=== PATIENT | male | born 1970 | race Caucasian/White ===

== ENCOUNTER 2017-06-22 09:58 | Inpatient (IN) | payer OTHER ==
[2017-06-22] MEDS ORDERED: VANCOMYCIN 1,000 MG in DEXTROSE 5%-WATER - 250 ML IVPB ONE (10:12)
[2017-06-22] MEDS ORDERED: AZITHROMYCIN IVPB 500 MG in DEXTROSE 5%-WATER - 250 ML IVPB ONE (10:13)
[2017-06-22 10:15] VITALS: BMI 30.2
--- NOTE | 2017-06-22 10:22 | PDOC ---
History of Present Illness <Jermain Smith - Last Filed: 06/22/17 12:46> - General History Source: Shelter Records - History of Present Illness Timing/Duration: reports: this morning Associated Symptoms: reports: cough <Tanika PringleLaurita - Last Filed: 06/22/17 14:38> - General Chief Complaint: Respiratory Stated Complaint: CONGESTION Time Seen by Provider: 06/22/17 10:04 Past History <Jermain Smith - Last Filed: 06/22/17 12:46> - Past Medical History Anemia: No Asthma: No Cancer: No Cardiac Disorders: Yes COPD: No CHF: No Dementia: Yes (severe MENTAL RETARDATION) Diabetes: Yes GI Disorders: Yes (GERD) Disorders: No HTN: No Hypercholesterolemia: No Liver Disease: No Suicide Attempt (Hx): No Seizures: Yes Thyroid Disease: No - Surgical History Abdominal Surgery: Yes Appendectomy: No Cardiac Surgery: No Cholecystectomy: No GI Surgery: Yes (PEG TUBE PLACEMENT) Lung Surgery: No Orthopedic Surgery: No - Immunization History Td Vaccination: Yes TDAP Vaccination: No Immunization Up to Date: Yes - Psycho/Social/Smoking Cessation Hx Anxiety: No Suicidal Ideation: No Smoking Status: No Smoking History: Never smoked Have you smoked in the past 12 months: No Number of Cigarettes Smoked Daily: 0 Hx Alcohol Use: No Drug/Substance Use Hx: No Substance Use Type: None Hx Substance Use Treatment: No <Tanika PringleLaurita - Last Filed: 06/22/17 14:38> - Past Medical History Allergies/Adverse Reactions: Allergies Allergy/AdvReac Type Severity Reaction Status Date / Time levofloxacin [From Levaquin] Allergy Intermediate Verified 06/22/17 10:06 Quinolones Allergy Unknown Verified 06/22/17 10:06 Cephalosporins Allergy Verified 06/22/17 10:06 Home Medications: Ambulatory Orders Calcium Carbonate/Vitamin D3 [Oyster Shell 500-Vit D3 200 Tb] 1 each GT BID Clonazepam 0.5 mg GT TID 06/22/17 Diazepam [Diastat Acudial] 1 each RC PRN PRN 06/22/17 Divalproex Sodium [Depakote] 375 mg GT BID 06/22/17 Ferrous Sulfate *Liquid* [Feosol [ALCOHOL FREE]] 44 mg GT BID 06/22/17 Gabapentin 200 mg PO TID 06/22/17 Glycopyrrolate 1 mg GT TID 06/22/17 Lamotrigine [Lamictal Xr] 200 mg GT BID 06/22/17 Levothyroxine [Synthroid -] 50 mcg GT DAILY 06/22/17 Loratadine 10 mg GT DAILY 06/22/17 Multivit-Min/FA/Lycopen/Lutein [Vitrum 50+ Senior Tablet] 1 each GT DAILY Polyethylene Glycol 3350 [Glycolax] 119 gm GT DAILY 06/22/17 Sennosides/Docusate Sodium [Senna Laxative Tablet] 2 each GT HS 06/22/17 Topiramate 25 gm GT BID 06/22/17 Respiratory Specific PMHX - Complaint Specific PMHX Pneumonia: Yes (history) <Giovanni Pringle - Last Filed: 06/22/17 14:38> Review of Systems - Review of Systems Able to Perform ROS?: No <Giovanni Pringle - Last Filed: 06/22/17 14:38> *Physical Exam - Vital Signs Last Vital Signs Temp Pulse Resp BP Pulse Ox 96.6 F L 87 24 121/69 97 06/22/17 10:00 06/22/17 10:00 06/22/17 10:00 06/22/17 10:00 06/22/17 10:00 <Jermain Smith - Last Filed: 06/22/17 12:46> - Physical Exam Comments: 06/22/17 10:23 appears lethargic General Appearance: Yes: Appropriately Dressed HEENT: positive: Other (mostly coagulated blood to tongue/teeth, possibly small tongue lac) Respiratory/Chest: positive: Rhonchi, Other (lous airway noises and rhonchorous lungs) Cardiovascular: positive: S1, S2 Gastrointestinal/Abdominal: positive: Soft. negative: Mass Integumentary: positive: Dry, Warm <Giovanni Pringle Last Filed: 06/22/17 14:38> Procedures - Intubation Time of Intubation: 12:35 Intubation Method: orotracheal Blade used: Glidescope Tube Size (Fr): 6.5 Medications: Rocuronium, Versed Tube position confirmed by: Direct visualization, CO2 detector, Chest x-ray, Breath sounds Breath Sounds after Intubation: equal Intubation Complications: no complications <Smith,Jermain - Last Filed: 06/22/17 12:46> ED Treatment Course - LABORATORY CBC & Chemistry Diagram: 06/22/17 11:23 06/22/17 10:55 - ADDITIONAL ORDERS Additional order review: Laboratory Results 06/22/17 06/22/17 06/22/17 11:20 11:20 10:55 Puncture Site Right radial ABG pH 7.24 L* ABG pCO2 at Pt Temp 81.2 H* D ABG pO2 at Pt Temp 101.0 H D ABG HCO3 33.3 H ABG O2 Sat (Measured) 97.7 ABG O2 Content 14.0 L ABG Base Excess 4.4 H Jovanni Test Positive Carboxyhemoglobin 2.1 H Methemoglobin 0.6 O2 Delivery Device Nonrebreather Oxygen Flow Rate 100% PEEP 0.0 Sodium Potassium Chloride Carbon Dioxide Anion Gap BUN Creatinine Creat Clearance w eGFR Random Glucose Lactic Acid 1.0 Calcium Total Bilirubin AST ALT Alkaline Phosphatase Creatine Kinase Cancelled Troponin I Cancelled Total Protein Albumin 06/22/17 10:55 Puncture Site ABG pH ABG pCO2 at Pt Temp ABG pO2 at Pt Temp ABG HCO3 ABG O2 Sat (Measured) ABG O2 Content ABG Base Excess Jovanni Test Carboxyhemoglobin Methemoglobin O2 Delivery Device Oxygen Flow Rate PEEP Sodium 141 Potassium 5.8 H D Chloride 102 Carbon Dioxide 32 Anion Gap 7 L BUN 28 H D Creatinine 0.5 L Creat Clearance w eGFR > 60 Random Glucose 110 H D Lactic Acid Calcium 10.3 H Total Bilirubin 0.5 D AST 61 H D ALT 41 Alkaline Phosphatase 319 H D Creatine Kinase 129 Troponin I < 0.02 Total Protein 7.6 Albumin 2.4 L 06/22/17 06/22/17 11:23 10:55 RBC 2.95 L Cancelled MCV 111.5 H Cancelled MCHC 31.7 L Cancelled RDW 17.2 H D Cancelled MPV 8.2 Cancelled Neutrophils % Y Cancelled Lymphocytes % Y Cancelled Monocytes % Cancelled Eosinophils % Cancelled Basophils % Cancelled - Medications Given in the ED: ED Medications Discontinued Medications Generic Name Dose Route Start Last Admin Trade Name Freq PRN Reason Stop Dose Admin Azithromycin 500 mg/ Dextrose 250 mls @ 250 mls/hr 06/22/17 10:13 06/22/17 12: 03 IVPB 06/22/17 11:12 250 mls/hr ONCE ONE Administration <Jermain Smith - Last Filed: 06/22/17 12:46> - LABORATORY CBC & Chemistry Diagram: 06/22/17 11:23 06/22/17 10:55 - RADIOLOGY Radiology Studies Ordered: Category Date Time Status CHEST X-RAY PORTABLE* [RAD] Stat Radiology 06/22/17 10:11 Ordered <Giovanni Pringle - Last Filed: 06/22/17 14:38> Medical Decision Making - Medical Decision Making 06/22/17 10:14 45-year-old male history of asthma, profound mental retardation, cerebral palsy , functional quadriplegia, recurrent epistaxis, seizure disorder, history of Katherine fundoplication (stomach wrapped to prevent reflux), s/p PEG, recurrent pneumonia, respiratory failure, oxygen dependent, sent from [facility] for upper respiratory congestion this a.m. No fevers noted at senior care See exam R/o recurrent PNA Sating high 80s on 2 L w/ lots of upper airway noise and rhonchorus lungs (O2 increased to 96% on 10-11L) -Abx (will discuss w/ ed attg given allergies) -CXR -labs including ABG (has h/o hypercapneic resp failure) -admit Oral bleeding 2/2 ?seizure Has h/o seizure though no seizure noted this am at [place] Has mostly dried blood to tongue/teeth, appears to be due to small tongue lac, no sutures required 06/22/17 10:25 06/22/17 10:25 06/22/17 10:30 CXR w/ progressive R infiltrate, effusion and congestion. Abx in progress. Will await labs and admit, possibly to unit. Low threshold for intubation as d/w ED attg 06/22/17 12:00 Patient significantly acidotic. Intubated at this time. Accepted by Dr. Rivas of ICU. Will contact hospitalist and admit at this time 06/22/17 13:09 Pt admitted to the ICU 06/22/17 14:27 After pt was intubated, patient's mother called to inform us that patient is DNR /DNI. We explained to mother that ER staff was not aware of patient's code as there was no documentation of DNR/DNI in patient's transfer notes from the senior care. Will inform admitting team at this time 06/22/17 14:36 As per admitting team, the state actually has guardianship of pt, not mother, and that pt is actually full code, not DNR/DNI, and that each time pt comes in, mother calls to tell staff that pt is DNR. ED attg aware <Giovanni Pringle - Last Filed: 06/22/17 14:38> *DC/Admit/Observation/Transfer <Jermain Smith - Last Filed: 06/22/17 12:46> - Discharge Dispostion Admit: Yes <Giovanni Pringle - Last Filed: 06/22/17 14:38> Diagnosis at time of Disposition: Hypercapnia Pneumonia Qualifiers: Pneumonia type: due to unspecified organism Laterality: right Lung location: unspecified part of lung Qualified Code(s): J18.9 - Pneumonia, unspecified organism - Discharge Dispostion Condition at time of disposition: Guarded - Referrals
[2017-06-22] MEDS ORDERED: methylPREDNISolone NA SUCC 125 MG/2 ML VIAL IVPB ONE (10:27)
[2017-06-22] MEDS ORDERED: AZTREONAM 2 GM in DEXTROSE 5%-WATER - 100 ML IV ONE (10:28)
--- NOTE | 2017-06-22 10:28 | PDOC ---
*Physical Exam - Vital Signs Last Vital Signs Temp Pulse Resp BP Pulse Ox 96.6 F L 87 24 121/69 97 06/22/17 10:00 06/22/17 10:00 06/22/17 10:00 06/22/17 10:00 06/22/17 10:00 ED Treatment Course - LABORATORY CBC & Chemistry Diagram: 06/22/17 11:23 06/22/17 10:55 Medical Decision Making - Critical Care Time Total Critical Care Time (minutes): 35 Critical Care Statement: The care of this patient involved high complexity decision making to prevent further life threatening deterioration of the patient 's condition and/or to evaluate & treat vital organ system(s) failure or risk of failure. - Medical Decision Making 06/22/17 10:28 Pt seen by the Advanced Practice Provider under my direct supervision Ancillary studies reviewed I agree with plan as outlined by the Advanced Practice Provider TIMMY Pringle Pt was noted to be quite ill and in respiratory distress. The patient was noted to be tachypneic, in respiratory failure. Noted to have a significant large R sided pneumonia. Give they hypoxia, ill-appearance, acidemia, and respiratory failure I had called and discussed with [facility] [place] nursing facilities maintenance supervisor Preema Stated that the patient was full code. Paper documentation with the patient indicated no code status or advanced directives The patient was intubated with video laryngoscopy with 1st pass through success Confirmed by breath sounds, condensation in ET tube, and CO2 colorimeter Portable subsequent chest xray shows: Placement of ET tube in trachea. I had discussed with Pt's mother Vianca Cummings [phone]. Mother upset. States that patient is DNR/DNI. We had then discussed the circumstances that had led to his intubation. We had updated the hospitalist team with the mother's phone number. Will ask [facility] to keep Ms. Cummings in frequent contact. *DC/Admit/Observation/Transfer Diagnosis at time of Disposition: Pneumonia, Hypercapnia - Discharge Dispostion Condition at time of disposition: Guarded
[2017-06-22] MEDS ORDERED: ALBUTEROL SO4 2.5/IPRATROPIUM 0.5 INH SOL 3 ML VIAL.NEB. NEB SCH (10:30)
[2017-06-22] MEDS ORDERED: VANCOMYCIN 1 GRAM (PRE-DOCKED) 250 ML IVPB ONE (11:02)
[2017-06-22] MEDS ORDERED: AZITHROMYCIN IVPB 250 ML IVPB ONE (11:02)
[2017-06-22 11:20] LABS: ARTERIAL BLD GAS O2 SATURATION 97.7 % (90-98.9); ARTERIAL BLOOD GAS BASE EXCESS 4.4 meq/l (-2-2); ARTERIAL BLOOD GAS HCO3 33.3 meq/L (22-26)
[2017-06-22 11:21] LABS: ALBUMIN 2.4 g/dl (3.4-5.0); ANION GAP 7 (8-16); BILIRUBIN,TOTAL 0.5 mg/dL (0.2-1.0); CALCIUM 10.3 mg/dL (8.5-10.1); CO2 32 mmol/L (21-32); CREATININE 0.5 mg/dL (0.7-1.3); GLUCOSE,RANDOM 110 mg/dL (74-106); SGPT/ALT 41 U/L (12-78); TOT PROT 7.6 g/dl (6.4-8.2)
[2017-06-22 11:22] LABS: ALK PHOS 319 U/L (45-117)
[2017-06-22 11:24] LABS: ARTERIAL BLOOD GAS pH 7.24 (7.35-7.45)
[2017-06-22 11:25] LABS: ALLENS TEST POSITIVE; ART PUNCT SITE RIGHT RADIAL; LPM/O2% 100%; METHEMOGLOBIN 0.6 % (0.4-1.5); PT. ON O2? YES
[2017-06-22 11:26] LABS: TYPE OF O2 NONREBREATHER
[2017-06-22 11:28] LABS: SGOT/AST 61 U/L (15-37)
[2017-06-22 11:44] LABS: MCH 35.4 pg (25.7-33.7); MCHC 31.7 g/dl (32.0-35.9); MEAN CELL VOLUME 111.5 fl (80-96); MEAN PLT VOLUME 8.2 fl (7.5-11.1); PLATELET COUNT 93 K/MM3 (134-434); RDW 17.2 % (11.9-15.9); WHITE BLOOD COUNT 9.4 K/mm3 (4.0-10.0)
[2017-06-22 12:11] LABS: CPK 129 IU/L (39-308); TROPONIN I < 0.02 ng/ml (0.00-0.05)
[2017-06-22] MEDS ORDERED: ALBUTEROL SO4 2.5/IPRATROPIUM 0.5 INH SOL 3 ML VIAL.NEB. NEB ONE (12:11)
[2017-06-22] MEDS ORDERED: RAPID SEQUENCE INTUBATION KIT NR ONE ×2 (12:16→12:26)
[2017-06-22] MEDS ORDERED: ROCURONIUM BROMIDE 50 MG/5 ML VIAL IV ONE (12:42)
[2017-06-22] MEDS ORDERED: ETOMIDATE 20 MG/10 ML AMPUL IVPUSH ONE (12:42)
[2017-06-22] MEDS ORDERED: MIDAZOLAM 100 MG in SODIUM CHLORIDE 100 ML IVPB SCH (12:45)
--- NOTE | 2017-06-22 13:17 | EKG ---
Test Reason : Blood Pressure : / mmHG Vent. Rate : 085 BPM Atrial Rate : 085 BPM P-R Int : 216 ms QRS Dur : 130 ms QT Int : 324 ms P-R-T Axes : 056 -14 249 degrees QTc Int : 385 ms SINUS RHYTHM WITH 1ST DEGREE A-V BLOCK NON-SPECIFIC INTRA-VENTRICULAR CONDUCTION BLOCK T WAVE ABNORMALITY, CONSIDER INFEROLATERAL ISCHEMIA ABNORMAL ECG WHEN COMPARED WITH ECG OF 22-OCT-2016 15:26, NO SIGNIFICANT CHANGE WAS FOUND CLINICAL CORRELATION IS RECOMMENDED Confirmed by ISABEL MORTENSEN MD ([id number]) on 06/22/2017 1:17:03 PM Referred By: Confirmed By:ISABEL MORTENSEN MD
--- NOTE | 2017-06-22 13:34 | HP ---
CHIEF COMPLAINT: Respiratory distress, from [facility] Dr[facility] Lunsford (the ship construction teacher physician at [place]) [phone] as there was a question as to whether patient was a full code or a DNR/DNI from ER staff after patient's mother called ER saying that patient was a DNR/DNI. asked that I clarify with the nursing wireworker supervisor ship construction teacher at [place]. I reached out to the nursing wireworker supervisor Mrs. Franco and she confirmed that patient is a FULL CODE. I will contact Palliative care so that they can follow patient as they were involved in his care on prior admission. HISTORY OF PRESENT ILLNESS: Patient is a 46 year old male with a significant past medical history of asthma , profound mental retardation, cerebral palsy, functional quadriplegia, recurrent epistaxis, seizure disorder, history of Katherine fundoplication ( stomach wrapped to prevent reflux), s/p PEG, recurrent pneumonia, respiratory failure, oxygen dependent, sent from [facility] for upper respiratory congestion. ER course was notable for: (1) ABG 7.24, PCO2 81.2, HCO3 33.3, P02 101 (2) K. 5.8 (3) oral bleeding, unable to inspect tongue (4) platelets 93 (5) BP 93/77, WBC 9.4 (6) +rhoncohorus lungs (7) Chest Xray 06/22/2017: ET tube tip above ovidio - progressive right effusion , anabelle. infiltrates Recent Travel: none PAST MEDICAL HISTORY: asthma, profound mental retardation, cerebral palsy, functional quadriplegia, recurrent epistaxis, seizure disorder, history of Katherine fundoplication (stomach wrapped to prevent reflux), s/p PEG, recurrent pneumonia, respiratory failure PAST SURGICAL HISTORY: Social History: Smoking: n/a Alcohol: n/a Drugs: n/a Family History: Allergies levofloxacin [From Levaquin] Allergy (Intermediate, Verified 06/22/17 10:06) rash Quinolones Allergy (Unknown, Verified 06/22/17 10:06) Cephalosporins Allergy (Verified 06/22/17 10:06) HOME MEDICATIONS: Home Medications Medication Instructions Recorded Calcium Carbonate/Vitamin D3 1 each GT BID 06/22/17 [Oyster Shell 500-Vit D3 200 Tb] Clonazepam 0.5 mg GT TID 06/22/17 Diazepam [Diastat Acudial] 1 each RC PRN PRN 06/22/17 Divalproex Sodium [Depakote] 375 mg GT BID 06/22/17 Ferrous Sulfate *Liquid* [Feosol 44 mg GT BID 06/22/17 [ALCOHOL FREE]] Gabapentin 200 mg PO TID 06/22/17 Glycopyrrolate 1 mg GT TID 06/22/17 Lamotrigine [Lamictal Xr] 200 mg GT BID 06/22/17 Levothyroxine [Synthroid -] 50 mcg GT DAILY 06/22/17 Loratadine 10 mg GT DAILY 06/22/17 Multivit-Min/FA/Lycopen/Lutein 1 each GT DAILY 06/22/17 [Vitrum 50+ Senior Tablet] Polyethylene Glycol 3350 [Glycolax] 119 gm GT DAILY 06/22/17 Sennosides/Docusate Sodium [Senna 2 each GT HS 06/22/17 Laxative Tablet] Topiramate 25 gm GT BID 06/22/17 REVIEW OF SYSTEMS CONSTITUTIONAL: Absent: fever, chills, diaphoresis, generalized weakness, malaise, loss of appetite, weight change HEENT: GASTROINTESTINAL: Absent: abdominal pain, abdominal distension, nausea, vomiting, diarrhea, constipation, melena, hematochezia GENITOURINARY: Absent: dysuria, frequency, urgency, hesitancy, hematuria, flank pain, genital pain MUSCULOSKELETAL: Absent: myalgia, arthralgia, joint swelling, back pain, neck pain SKIN: Absent: rash, itching, pallor HEMATOLOGIC/IMMUNOLOGIC: Absent: easy bleeding, easy bruising, lymphadenopathy, frequent infections ENDOCRINE: Absent: unexplained weight gain, unexplained weight loss, heat intolerance, cold intolerance PHYSICAL EXAMINATION Vital Signs - 24 hr 06/22/17 06/22/17 10:00 12:48 Temperature 96.6 F L Pulse Rate 87 73 Respiratory 24 15 Rate Blood Pressure 121/69 O2 Sat by Pulse 98 100 Oximetry (%) GENERAL: sedated, intubated HEAD: oral bleeding, dry blood in mouth EARS, NOSE, THROAT: oral bleeding, dry blood in mouth, unable to view bishop LUNGS: rhonchorus lungs ABDOMEN: +peg tube UPPER EXTREMITIES: No peripheral edema. LOWER EXTREMITIES: non pitting edema NEUROLOGICAL: intubated, sedated Laboratory Results - last 24 hr 06/22/17 06/22/17 06/22/17 10:55 10:55 10:55 WBC Cancelled Corrected WBC (auto) Cancelled RBC Cancelled Hgb Cancelled Hct Cancelled MCV Cancelled MCH Cancelled MCHC Cancelled RDW Cancelled Plt Count Cancelled MPV Cancelled Neutrophils % Cancelled Lymphocytes % Cancelled Monocytes % Cancelled Eosinophils % Cancelled Basophils % Cancelled Platelet Comment Cancelled RBC Morphology Cancelled Puncture Site ABG pH ABG pCO2 at Pt Temp ABG pO2 at Pt Temp ABG HCO3 ABG O2 Sat (Measured) ABG O2 Content ABG Base Excess Jovanni Test Carboxyhemoglobin Methemoglobin O2 Delivery Device Oxygen Flow Rate PEEP Sodium 141 Potassium 5.8 H D Chloride 102 Carbon Dioxide 32 Anion Gap 7 L BUN 28 H D Creatinine 0.5 L Creat Clearance w eGFR > 60 Random Glucose 110 H D Lactic Acid 1.0 Calcium 10.3 H Total Bilirubin 0.5 D AST 61 H D ALT 41 Alkaline Phosphatase 319 H D Creatine Kinase 129 Troponin I < 0.02 Total Protein 7.6 Albumin 2.4 L 06/22/17 06/22/17 06/22/17 11:20 11:20 11:23 WBC 9.4 Corrected WBC (auto) RBC 2.95 L Hgb 10.4 L Hct 32.9 L MCV 111.5 H MCH 35.4 H MCHC 31.7 L RDW 17.2 H D Plt Count 93 L D MPV 8.2 Neutrophils % Y Lymphocytes % Y Monocytes % Eosinophils % Basophils % Platelet Comment RBC Morphology Puncture Site Right radial ABG pH 7.24 L* ABG pCO2 at Pt Temp 81.2 H* D ABG pO2 at Pt Temp 101.0 H D ABG HCO3 33.3 H ABG O2 Sat (Measured) 97.7 ABG O2 Content 14.0 L ABG Base Excess 4.4 H Jovanni Test Positive Carboxyhemoglobin 2.1 H Methemoglobin 0.6 O2 Delivery Device Nonrebreather Oxygen Flow Rate 100% PEEP 0.0 Sodium Potassium Chloride Carbon Dioxide Anion Gap BUN Creatinine Creat Clearance w eGFR Random Glucose Lactic Acid Calcium Total Bilirubin AST ALT Alkaline Phosphatase Creatine Kinase Cancelled Troponin I Cancelled Total Protein Albumin ASSESSMENT/PLAN: Patient is a 46 year old male with a significant past medical history of asthma , profound mental retardation, cerebral palsy, functional quadriplegia, recurrent epistaxis, seizure disorder, history of Katherine fundoplication ( stomach wrapped to prevent reflux), s/p PEG, recurrent pneumonia, respiratory failure, oxygen dependent, sent from [facility] for upper respiratory congestion. Pulmonary: Severe Sepsis 2/2 to Aspiration pnemonia, vs HCAP/upper respiratory infection with respiratory Failure - acute on chronic A/P: Intubated and sedated and transferred to the ICU Blood and urine cultures sent He is oxygen dependent at baseline Given Vanco and Azithromycin in the ED, Will Start on Zosyn ivpb q8 Clindamycin added on 06/23/2017 Sputum culture ordered ID following Neurology: Seizure disorder A/P: Continue home anti-seizure medications Ativan added for any seizure episodes Tongue laceration with dry blood in oral cavity Aspiration pna after seizure episode likely Neuro consulted Endocrine: A/P: On Synthroid TSH in a.m. Cerebral Palsy/Qudriplegic A/P: Turn and position, tube feeds on hold, NPO Hematology: A/P: Thrombocytopenia Monitor platelet counts Hold anticoags F.E.N. Fluids: NS @ 100cc/hr Electrolytes: Hyperkalemia, repeat labs, if continues to be elevated will give Kayexalate DVT Proph: DVT: SCDs, no AC secondary to thrombocytopenia GI: Protonix through GT Disposition: Full Code. See above note, patient is not a DNR/DNI. Visit type - Emergency Visit Emergency Visit: Yes ED Registration Date: 06/22/17 Care time: The patient presented to the Emergency Department on the above date and was hospitalized for further evaluation of their emergent condition. - New Patient This patient is new to me today: Yes Date on this admission: 06/23/17 - Critical Care Critical Care patient: Yes Total Critical Care Time (in minutes): 60 Critical Care Statement: The care of this patient involved high complexity decision making to prevent further life threatening deterioration of the patient 's condition and/or to evaluate & treat vital organ system(s) failure or risk of failure.
[2017-06-22 13:56] LABS: METAMYELOCYTE 38 % (0-2)
[2017-06-22 13:58] LABS: ANISOCYTOSIS 2+; HYPOCHROMIA 2+; STOMATOCYTE 3+
[2017-06-22 13:59] LABS: PLATELET ESTIMATE DECREASED (NORMAL)
[2017-06-22 18:42] LABS: ARTERIAL BLD GAS O2 SATURATION 93.2 % (90-98.9); ARTERIAL BLOOD GAS BASE EXCESS 4.4 meq/l (-2-2); ARTERIAL BLOOD GAS pH 7.41 (7.35-7.45)
[2017-06-22 18:47] LABS: ALLENS TEST POSITIVE; ART PUNCT SITE LEFT RADIAL; ARTERIAL BLOOD GAS PO2 61.6 mmHg (80-100); LPM/O2% 50%; MECH. VENT. ESPRIT; PT. ON O2? YES; TYPE OF O2 OT; VENT RATE 15; VT/PRESS 400
--- NOTE | 2017-06-22 18:58 | HOSP ---
Physical Examination Vital Signs: Vital Signs Temperature 96.6 F L 06/22/17 10:00 Pulse Rate 64 06/22/17 17:10 Respiratory Rate 18 06/22/17 17:10 Blood Pressure 92/48 06/22/17 17:10 O2 Sat by Pulse Oximetry (%) 100 06/22/17 17:10 Hospitalist Encounter Assessment: Patient has poor IV access, 22g on right wrist not working well ER physician Dr. Colmenares, TIMMY Larios asked to assist in placing EJ Left EJ placed by TIMMY Larios
[2017-06-22] MEDS ORDERED: SODIUM POLYSTYRENE SULFONATE 15 GM/60 ML BOTTLE PEG ONE (19:10)
[2017-06-22] MEDS: PIPERACILLIN/TAZOB 3.375 GM/50 ML PRE-DOCKED IVPB SCH (19:33)
[2017-06-22 19:56] LABS: CPK 85 IU/L (39-308)
[2017-06-22 19:57] LABS: TROPONIN I < 0.02 ng/ml (0.00-0.05)
--- NOTE | 2017-06-22 20:19 | CONSULT ---
Consult Consult Specialty:: PULM / CCM Referred by:: Dr. Cici Lewis Reason for Consultation:: PNA - History of Present Illness Chief Complaint: SOB History of Present Illness: Mr. Jama is a 45 y/o man w/ CP, profound MR, Szs, functional quadriplegia, PEG , asthma, recurrent pna, & O2 Dependant respiratory failure, [facility] Resident, JOHNNIE today for upper respiratory congestion. Pt intubated in the ED. CXR shows R Lung plugging. Admit to ICU for Resp Fail. - History Source History Provided By: Medical Record Limitations to Obtaining History: Clinical Condition (Pt is Uncon/unresp sedated on the Vent.) - Past Medical History BIO MEDICAL TECHNICIAN: Yes: Dementia, Seizure, Other (Cerebral Palsy w quadriplegia, severe mental retardation) Pulmonary: Yes: Pneumonia Gastrointestinal: Yes: GERD, Other (peg tube) Musculoskeletal: Yes: Other (scoliosis) ENT: Yes: Allergic Rhinitis Endocrine: Yes: Other (h/o hyponatremia) Additional Medical History: optic atrophy. h/o hypothermia - Past Surgical History Past Surgical History: Yes: Orchiectomy, Upper Endoscopy - Alcohol/Substance Use Hx Alcohol Use: No History of Substance Use: reports: None - Smoking History Smoking history: Never smoked Have you smoked in the past 12 months: No Aproximately how many cigarettes per day: 0 - Social History Usual Living Arrangement: Long-Term ADL: Support Services History of Recent Travel: No Home Medications - Allergies Allergies/Adverse Reactions: Allergies Allergy/AdvReac Type Severity Reaction Status Date / Time levofloxacin [From Levaquin] Allergy Intermediate Verified 06/22/17 10:06 Quinolones Allergy Unknown Verified 06/22/17 10:06 Cephalosporins Allergy Verified 06/22/17 10:06 - Home Medications Home Medications: Ambulatory Orders Albuterol 0.083% Nebulizer Yolanda [Ventolin 0.083% Nebulizer Soln -] 1 amp NEB Q8H PRN 06/22/17 Calcium Carbonate/Vitamin D3 [Oyster Shell 500-Vit D3 200 Tb] 1 each GT BID Clonazepam 0.5 mg GT TID 06/22/17 Diazepam [Diastat Acudial] 1 each RC PRN PRN 06/22/17 Divalproex Sodium [Depakote] 375 mg GT BID 06/22/17 Ferrous Sulfate *Liquid* [Feosol [ALCOHOL FREE]] 5 ml GT BID 06/22/17 Gabapentin 200 mg PO TID 06/22/17 Glycopyrrolate 1 mg GT TID 06/22/17 Lamotrigine [Lamictal Xr] 200 mg GT BID 06/22/17 Levothyroxine [Synthroid -] 50 mcg GT DAILY 06/22/17 Loratadine 10 mg GT DAILY 06/22/17 Multivit-Min/FA/Lycopen/Lutein [Vitrum 50+ Senior Tablet] 1 each GT DAILY Nutritional Supplement/Fiber [Promote with Fiber Liquid] 830 ml GT DAILY Polyethylene Glycol 3350 [Glycolax] 17 gm GT DAILY 06/22/17 Protein Supplement [Promod] 30 ml GT DAILY 06/22/17 Sennosides [Senna] 2 tab GT HS 06/22/17 Sodium Chloride Nasal Gel [Plains Saline Nasal Gel -] 1 applic TP DAILY 06/22/17 Sodium Chloride Tablet - 2.5 tab PO HS 06/22/17 Sodium Chloride Tablet - 3.5 tab GT AM 06/22/17 Topiramate 25 gm GT BID 06/22/17 Family Disease History - Family Disease History Family History: Unable to Obtain (Unconscious/Unresp (Sedated & Intubated)) Family Disease History: Other: Father, Mother Review of Systems Unable to obtain ROS, reason: Sedated & Intubated Physical Exam Vital Signs: Vital Signs Temperature 98.0 F 06/22/17 18:47 Pulse Rate 58 L 06/22/17 18:47 Respiratory Rate 15 06/22/17 19:27 Blood Pressure 81/59 06/22/17 18:47 O2 Sat by Pulse Oximetry (%) 100 06/22/17 17:10 Gastrointestinal: Yes: WNL, Normal Bowel Sounds, Soft, Distention, Other (PEG) ...Rectal Exam: Yes: Deferred Renal/: Yes: WNL Breast(s): Yes: WNL Musculoskeletal: Yes: WNL Extremities: Yes: WNL Edema: Yes Edema: LUE: Trace, RUE: Trace, LLE: Trace, RLE: Trace Peripheral Pulses WNL: Yes Neurological: Yes: Unresponsive ...Motor Strength: WNL Psychiatric: Yes: WNL Labs: CBC, BMP 06/22/17 11:23 06/22/17 18:35 Troponin, BNP 06/22/17 06/22/17 06/22/17 10:55 11:20 18:35 Troponin I < 0.02 Cancelled < 0.02 Imaging - Results Chest X-ray: Image Reviewed (ETT in good position & massive R side PNA w/ extensive lumg collapse.) Problem List - Problems (1) Aspiration pneumonia Code(s): J69.0 - PNEUMONITIS DUE TO INHALATION OF FOOD AND VOMIT (2) Hypercapnia Code(s): R06.89 - OTHER ABNORMALITIES OF BREATHING (3) Seizure Code(s): R56.9 - UNSPECIFIED CONVULSIONS (4) Asthma Code(s): J45.909 - UNSPECIFIED ASTHMA, UNCOMPLICATED Qualifiers: Asthma severity: mild intermittent Asthma complication type: uncomplicated Qualified Code(s): J45.20 - Mild intermittent asthma, uncomplicated (5) GERD (gastroesophageal reflux disease) Code(s): K21.9 - GASTRO-ESOPHAGEAL REFLUX DISEASE WITHOUT ESOPHAGITIS (6) Cerebral palsy, quadriplegic Code(s): G80.8 - OTHER CEREBRAL PALSY (7) Hypothyroidism Code(s): E03.9 - HYPOTHYROIDISM, UNSPECIFIED (8) Mental retardation Code(s): F79 - UNSPECIFIED INTELLECTUAL DISABILITIES Assessment/Plan ASSESS: This is a 45 y/o man w/ CP, profound MR, Szs, functional quadriplegia, PEG, asthma, recurrent pna, & O2 Dependant respiratory failure, [facility] Resident, admitted now w/ hypercapnic resp fail m/l 2/2 pna. PLAN: -Vent Support -Nebs -Sedation for comfort on the Vent -Early AM eye rehab tech Bronch down the R main?? -Zo & Aztih -CPT -F/u Clxrs -IVFs -Cont Home AEDs -NEURO -Cont Synthroid -TFs -Pall Care Consult (Pt's mother requesting DNR/DNI) -Turn Pt q2Hrs (functional quadriplegia) -BR -Protonix through GT -SCDs, (no AC secondary to thrombocytopenia) IMPORTANT CONTACTS TO NOTE: Vianca Cummings ([facility] [place]) [phone]. call center coordinator physician at [facility] [phone] [facility] nursing tool crib supervisor [id number] [facility] ICU PULM / CCM
[2017-06-22] MEDS ORDERED: ALBUTEROL SO4 0.083% IH SOL 2.5 MG/3 ML VIAL.NEB. NEB PRN (20:41)
[2017-06-22] MEDS ORDERED: LACTATED RINGERS SOLUTION 1,000 ML IV STA (20:41)
[2017-06-22] MEDS ORDERED: PT OWN MED DRAWER 7, Y5N ONE (21:18)
[2017-06-22] MEDS ORDERED: TOPIRAMATE GT SCH (22:00)
[2017-06-22] MEDS: SODIUM CHLORIDE 1,000 ML IV SCH (22:11)
[2017-06-22] MEDS: MUPIROCIN 2% TOPICAL OINTMENT FOR DECOLONIZATION NS SCH (22:12)
[2017-06-22] MEDS: VALPROATE SODIUM 500 MG/5 ML VIAL IVPB SCH (22:13)
[2017-06-22] MEDS: CHLORHEXIDINE GLUCONATE 4% CLEANSER FOR DECOLONIZATION TP SCH (22:13)
[2017-06-22] MEDS: clonazePAM 0.5 MG TABLET GT SCH (22:13)
[2017-06-22] MEDS: GABAPENTIN 100 MG CAPSULE (FP) GT SCH (22:13)
[2017-06-22] MEDS: lamoTRIgine 100 MG TABLET (FP) GT SCH (22:14)
[2017-06-22] MEDS: TOPIRAMATE 25 MG TABLET (FP) NR SCH (22:14)
[2017-06-23] MEDS: PIPERACILLIN/TAZOB 3.375 GM/50 ML PRE-DOCKED IVPB SCH ×3 (02:00→18:26)
[2017-06-23] MEDS: GABAPENTIN 100 MG CAPSULE (FP) GT SCH ×3 (06:06→21:44)
[2017-06-23] MEDS: clonazePAM 0.5 MG TABLET GT SCH ×3 (06:06→21:44)
[2017-06-23] MEDS: LEVOTHYROXINE NA 50 MCG TABLET (FP) GT SCH (06:13)
[2017-06-23 06:49] LABS: MCH 35.4 pg (25.7-33.7); MCHC 32.4 g/dl (32.0-35.9); MEAN PLT VOLUME 8.8 fl (7.5-11.1); PLATELET COUNT 85 K/MM3 (134-434); RDW 16.8 % (11.9-15.9); WHITE BLOOD COUNT 7.3 K/mm3 (4.0-10.0)
[2017-06-23 07:24] LABS: ANION GAP 7 (8-16); CALCIUM 9.2 mg/dL (8.5-10.1); CO2 29 mmol/L (21-32); CREATININE 0.5 mg/dL (0.7-1.3); GLUCOSE,RANDOM 76 mg/dL (74-106); MAGNESIUM 2.1 mg/dL (1.8-2.4)
[2017-06-23 07:32] LABS: ARTERIAL BLD GAS O2 SATURATION 98.9 % (90-98.9); ARTERIAL BLOOD GAS BASE EXCESS 3.3 meq/l (-2-2); ARTERIAL BLOOD GAS HCO3 27.2 meq/L (22-26); ARTERIAL BLOOD GAS pH 7.45 (7.35-7.45)
[2017-06-23 07:43] LABS: ALLENS TEST POSITIVE; ART PUNCT SITE RIGHT RADIAL; LPM/O2% 50%; MECH. VENT. Y; PT. ON O2? YES; TYPE OF O2 VENT
[2017-06-23 07:44] LABS: VENT RATE 15; VT/PRESS 400
[2017-06-23 07:46] LABS: THYROID STIMULATING HORMONE 0.75 uIU/ml (0.358-3.74)
[2017-06-23] MEDS ORDERED: CLINDAMYCIN 600MG PREMIX IVPB 50 ML IVPB SCH (09:00)
[2017-06-23 09:20] LABS: METAMYELOCYTE 7 % (0-2)
[2017-06-23 09:21] LABS: PLATELET ESTIMATE DECREASED (NORMAL)
--- NOTE | 2017-06-23 09:31 | PN ---
Physical Exam: SUBJECTIVE: Patient seen and examined in the ICU. Less congested lung sounds. Remains intubated, sedated. Systolic in the 80s, not on pressors OBJECTIVE: Potassium 4.1 I consulted neuro, as am concerned that patient may have had a seizure and may have caused him to aspirate. He has dry blood in his oral cavity. Will check valporic levels. Ativan 0.5mg prn added for any seizure episodes Clindmycin added for presumed aspiration pneumonia Palliative care consulted to discuss goals of care and advance directives Less congested today Vital Signs Period Temp Pulse Resp BP Sys/Celestin Pulse Ox Last 24 Hr 95.6 F-99.2 F 58-72 15-20 80-112/38-77 97-100 GENERAL: sedated, intubated HEAD: oral bleeding, dry blood in mouth EARS, NOSE, THROAT: oral bleeding, dry blood in mouth, unable to view bishop LUNGS: less congestion, rhonchorus lungs ABDOMEN: +peg tube UPPER EXTREMITIES: No peripheral edema. LOWER EXTREMITIES: non pitting edema NEUROLOGICAL: intubated, sedated Laboratory Results - last 24 hr 06/22/17 06/22/17 06/22/17 18:35 18:35 18:35 WBC RBC Hgb Hct MCV MCH MCHC RDW Plt Count MPV Neutrophils % Lymphocytes % Monocytes % Eosinophils % Band Neutrophils Metamyelocytes Myelocytes Differential Comment Platelet Estimate Puncture Site ABG pH ABG pCO2 at Pt Temp ABG pO2 at Pt Temp ABG HCO3 ABG O2 Sat (Measured) ABG O2 Content ABG Base Excess Jovanni Test O2 Delivery Device Oxygen Flow Rate Vent Mode Vent Rate Mechanical Rate PEEP Pressure Support Vent Sodium Potassium 4.2 D Chloride Carbon Dioxide Anion Gap BUN Creatinine Random Glucose Lactic Acid 2.0 Calcium Phosphorus Magnesium Creatine Kinase 85 Troponin I < 0.02 TSH 06/22/17 06/23/17 06/23/17 18:40 05:35 05:35 WBC 7.3 RBC 2.32 L D Hgb 8.2 L D Hct 25.3 L D MCV 109.0 H MCH 35.4 H MCHC 32.4 RDW 16.8 H Plt Count 85 L MPV 8.8 Neutrophils % 58.0 D Lymphocytes % 18.0 D Monocytes % 6.0 Eosinophils % 2.0 D Band Neutrophils 6.0 Metamyelocytes 7 H D Myelocytes 3 H D Differential Comment Manual diff done Platelet Estimate Decreased Puncture Site Left radial ABG pH 7.41 D ABG pCO2 at Pt Temp 46.2 H D ABG pO2 at Pt Temp 61.6 L D ABG HCO3 29.0 H ABG O2 Sat (Measured) 93.2 ABG O2 Content 11.4 L ABG Base Excess 4.4 H Jovanni Test Positive O2 Delivery Device Ot Oxygen Flow Rate 50% Vent Mode Ac Vent Rate 15 Mechanical Rate Esprit PEEP 5.0 Pressure Support Vent 400 Sodium 142 Potassium 4.1 Chloride 106 Carbon Dioxide 29 Anion Gap 7 L BUN 31 H Creatinine 0.5 L Random Glucose 76 D Lactic Acid Calcium 9.2 Phosphorus 2.0 L D Magnesium 2.1 Creatine Kinase Troponin I TSH 0.75 D 06/23/17 07:35 WBC RBC Hgb Hct MCV MCH MCHC RDW Plt Count MPV Neutrophils % Lymphocytes % Monocytes % Eosinophils % Band Neutrophils Metamyelocytes Myelocytes Differential Comment Platelet Estimate Puncture Site Right radial ABG pH 7.45 ABG pCO2 at Pt Temp 40.1 ABG pO2 at Pt Temp 101.0 H D ABG HCO3 27.2 H ABG O2 Sat (Measured) 98.9 ABG O2 Content 11.4 L ABG Base Excess 3.3 H Jovanni Test Positive O2 Delivery Device Vent Oxygen Flow Rate 50% Vent Mode A/c Vent Rate 15 Mechanical Rate Y PEEP 5.0 Pressure Support Vent 400 Sodium Potassium Chloride Carbon Dioxide Anion Gap BUN Creatinine Random Glucose Lactic Acid Calcium Phosphorus Magnesium Creatine Kinase Troponin I TSH Active Medications Generic Name Dose Route Start Last Admin Trade Name Freq PRN Reason Stop Dose Admin Albuterol Sulfate 1 amp 06/22/17 20:41 Ventolin 0.083% Nebulizer Soln - NEB Q4H PRN SHORT OF BREATH/WHEEZING Chlorhexidine Gluconate 1 applic 06/22/17 22:00 06/22/17 22:13 Hibiclens For Decolonization - TP 1 applic HS GILL Administration Clonazepam 0.5 mg 06/22/17 22:00 06/23/17 06:06 Klonopin - GT 0.5 mg TID GILL Administration Gabapentin 200 mg 06/22/17 22:00 06/23/17 06:06 Neurontin - GT 200 mg TID GILL Administration Midazolam HCl 100 mg/ Sodium 100 mls @ 1 mls/hr 06/22/17 12:45 06/22/17 12:45 Chloride IVPB 1 mls/hr TITR GILL Administration Protocol 1 MG/HR Sodium Chloride 1,000 mls @ 100 mls/hr 06/22/17 19:00 06/22/17 22:11 Normal Saline - IV 100 mls/hr ASDIR GILL Administration Clindamycin Phosphate 50 mls @ 100 mls/hr 06/23/17 09:00 Cleocin 600 Mg Premix Ivpb - IVPB Q6H-IV GILL Lamotrigine 200 mg 06/22/17 22:00 06/22/17 22:14 Lamictal - GT 200 mg BID GILL Administration Levothyroxine Sodium 50 mcg 06/23/17 07:00 06/23/17 06:13 Synthroid - GT 50 mcg DAILY@0700 GILL Administration Loratadine 10 mg 06/23/17 10:00 Claritin - GT DAILY GILL Lorazepam 0.5 mg 06/22/17 16:25 Ativan Injection - IVPUSH Q6H PRN seizures Mupirocin 1 applic 06/22/17 22:00 06/22/17 22:12 Bactroban Ointment (For Decolonization) - NS 06/27/17 21:59 1 applic BID GILL Administration Pantoprazole Sodium 40 mg 06/23/17 10:00 Protonix 40mg Ivpb (Pre-Docked) IVPB DAILY GILL Piperacillin Sod/Tazobactam Sod 3.375 gm 06/22/17 18:00 06/23/17 02:00 Zosyn 3.375gm Ivpb (Pre-Docked) IVPB 3.375 gm Q8H-IV GILL Administration Protocol Topiramate 25 mg 06/22/17 22:00 06/22/17 22:14 Topamax - NR 25 mg BID GILL Administration Valproate Sodium 375 mg 06/22/17 22:00 06/22/17 22:13 Depacon Injection - IVPB 375 mg BID GILL Administration ASSESSMENT/PLAN: Patient is a 46 year old male with a significant past medical history of asthma , profound mental retardation, cerebral palsy, functional quadriplegia, recurrent epistaxis, seizure disorder, history of Katherine fundoplication ( stomach wrapped to prevent reflux), s/p PEG, recurrent pneumonia, respiratory failure, oxygen dependent, sent from [facility] for upper respiratory congestion and difficulty breathing. Pulmonary: Severe Sepsis likely 2/2 to Aspiration pnemonia, vs HCAP/upper respiratory infection with respiratory Failure - acute on chronic A/P: Intubated and sedated in ICU Blood and urine cultures pending He is oxygen dependent at baseline Given Vanco and Azithromycin in the ED, Now on Zosyn (day 2) and added Clindamycin (day 1) Sputum culture ordered, dujake ID consulted Neurology: Seizure disorder A/P: Continue home anti-seizure medications Ativan added for any seizure episodes Tongue laceration with dry blood in oral cavity Aspiration pna likely after seizure episode Will send out valporic acid levels Neuro consulted Endocrine: A/P: On Synthroid TSH within normal limits Cerebral Palsy/Qudriplegic A/P: Turn and position, tube feeds on hold, NPO Hematology: A/P: Thrombocytopenia Monitor platelet counts, dropped to 85 today Hold anticoags F.E.N. Fluids: NS @ 100cc/hr Electrolytes: Hyperkalemia resolved, DVT Proph: DVT: SCDs, no AC secondary to thrombocytopenia GI: Protonix ivpb Disposition: Full Code. Code status confirmed with [facility] Nursing pile driving supervisor. Visit type - Emergency Visit Emergency Visit: Yes ED Registration Date: 06/22/17 Care time: The patient presented to the Emergency Department on the above date and was hospitalized for further evaluation of their emergent condition. - New Patient This patient is new to me today: No - Critical Care Critical Care patient: Yes Total Critical Care Time (in minutes): 45 Critical Care Statement: The care of this patient involved high complexity decision making to prevent further life threatening deterioration of the patient 's condition and/or to evaluate & treat vital organ system(s) failure or risk of failure. - Discharge Referral Referred to [facility] Med P.C.: No
[2017-06-23] MEDS ORDERED: [UNRECOGNIZED DRUG - OTHER] GT SCH (10:00)
[2017-06-23] MEDS ORDERED: PANTOPRAZOLE SODIUM 40 MG in SODIUM CHLORIDE 100 ML IVPB SCH (10:00)
--- NOTE | 2017-06-23 10:04 | CONSULT ---
Consult - text type - Consultation Consultation Note: Neurology History of Present Illness 45-year-old male history of asthma, profound mental retardation, cerebral palsy , functional quadriplegia, recurrent epistaxis, seizure disorder, history of Katherine fundoplication (stomach wrapped to prevent reflux), s/p PEG, recurrent pneumonia, respiratory failure, oxygen dependent, sent from [facility] for upper respiratory congestion. CXR w/ progressive R infiltrate, effusion and congestion. Patient sedated, intubated and on mechanical ventilation in ICU care. There is concern for possible aspiration PNA. Minimally responsive and does have underlying seizure disorder but no witnessed events at senior care. Patient on IV Abx. ID following. Can continue seizure home medications. Ativan PRN can also be used but no motor abnormal activity noted on exam or witnessed. - General History Source: [facility] Records - History of Present Illness Timing/Duration: reports: this morning Associated Symptoms: reports: cough - General Chief Complaint: Respiratory Stated Complaint: CONGESTION Time Seen by Provider: 06/22/17 10:04 Past History - Past Medical History Anemia: No Asthma: No Cancer: No Cardiac Disorders: Yes COPD: No CHF: No Dementia: Yes (severe MENTAL RETARDATION) Diabetes: Yes GI Disorders: Yes (GERD) Disorders: No HTN: No Hypercholesterolemia: No Liver Disease: No Suicide Attempt (Hx): No Seizures: Yes Thyroid Disease: No - Surgical History Abdominal Surgery: Yes Appendectomy: No Cardiac Surgery: No Cholecystectomy: No GI Surgery: Yes (PEG TUBE PLACEMENT) Lung Surgery: No Orthopedic Surgery: No - Immunization History Td Vaccination: Yes TDAP Vaccination: No Immunization Up to Date: Yes - Psycho/Social/Smoking Cessation Hx Anxiety: No Suicidal Ideation: No Smoking Status: No Smoking History: Never smoked Have you smoked in the past 12 months: No Number of Cigarettes Smoked Daily: 0 Hx Alcohol Use: No Drug/Substance Use Hx: No Substance Use Type: None Hx Substance Use Treatment: No - Past Medical History Allergies/Adverse Reactions: Allergies Allergy/AdvReac Type Severity Reaction Status Date / Time levofloxacin [From Levaquin] Allergy Intermediate Verified 06/22/17 10:06 Quinolones Allergy Unknown Verified 06/22/17 10:06 Cephalosporins Allergy Verified 06/22/17 10:06 Home Medications: Ambulatory Orders Calcium Carbonate/Vitamin D3 [Oyster Shell 500-Vit D3 200 Tb] 1 each GT BID Clonazepam 0.5 mg GT TID 06/22/17 Diazepam [Diastat Acudial] 1 each RC PRN PRN 06/22/17 Divalproex Sodium [Depakote] 375 mg GT BID 06/22/17 Ferrous Sulfate *Liquid* [Feosol [ALCOHOL FREE]] 44 mg GT BID 06/22/17 Gabapentin 200 mg PO TID 06/22/17 Glycopyrrolate 1 mg GT TID 06/22/17 Lamotrigine [Lamictal Xr] 200 mg GT BID 06/22/17 Levothyroxine [Synthroid -] 50 mcg GT DAILY 06/22/17 Loratadine 10 mg GT DAILY 06/22/17 Multivit-Min/FA/Lycopen/Lutein [Vitrum 50+ Senior Tablet] 1 each GT DAILY Polyethylene Glycol 3350 [Glycolax] 119 gm GT DAILY 06/22/17 Sennosides/Docusate Sodium [Senna Laxative Tablet] 2 each GT HS 06/22/17 Topiramate 25 gm GT BID 06/22/17 Review of Systems - Review of Systems Able to Perform ROS?: No *Physical Exam Last Vital Signs Temp Pulse Resp BP Pulse Ox 96.6 F L 87 24 121/69 97 06/22/17 10:00 06/22/17 10:00 06/22/17 10:00 06/22/17 10:00 06/22/17 10:00 06/22/17 10:23 appears lethargic General Appearance: Yes: Appropriately Dressed HEENT: positive: Other (mostly coagulated blood to tongue/teeth, possibly small tongue lac) Respiratory/Chest: positive: Rhonchi, Other (lous airway noises and rhonchorous lungs) Cardiovascular: positive: S1, S2 Gastrointestinal/Abdominal: positive: Soft. negative: Mass Integumentary: positive: Dry, Warm Neuro: Somnolent but arousable momentarily, not following commands, responds to pain and tactile stimulation, no apparent CN deficits, no abnormal motor activity Laboratory Results 06/22/17 06/22/17 06/22/17 11:20 11:20 10:55 Puncture Site Right radial ABG pH 7.24 L* ABG pCO2 at Pt Temp 81.2 H* D ABG pO2 at Pt Temp 101.0 H D ABG HCO3 33.3 H ABG O2 Sat (Measured) 97.7 ABG O2 Content 14.0 L ABG Base Excess 4.4 H Jovanni Test Positive Carboxyhemoglobin 2.1 H Methemoglobin 0.6 O2 Delivery Device Nonrebreather Oxygen Flow Rate 100% PEEP 0.0 Sodium Potassium Chloride Carbon Dioxide Anion Gap BUN Creatinine Creat Clearance w eGFR Random Glucose Lactic Acid 1.0 Calcium Total Bilirubin AST ALT Alkaline Phosphatase Creatine Kinase Cancelled Troponin I Cancelled Total Protein Albumin 06/22/17 10:55 Puncture Site ABG pH ABG pCO2 at Pt Temp ABG pO2 at Pt Temp ABG HCO3 ABG O2 Sat (Measured) ABG O2 Content ABG Base Excess Jovanni Test Carboxyhemoglobin Methemoglobin O2 Delivery Device Oxygen Flow Rate PEEP Sodium 141 Potassium 5.8 H D Chloride 102 Carbon Dioxide 32 Anion Gap 7 L BUN 28 H D Creatinine 0.5 L Creat Clearance w eGFR > 60 Random Glucose 110 H D Lactic Acid Calcium 10.3 H Total Bilirubin 0.5 D AST 61 H D ALT 41 Alkaline Phosphatase 319 H D Creatine Kinase 129 Troponin I < 0.02 Total Protein 7.6 Albumin 2.4 L 06/22/17 06/22/17 11:23 10:55 RBC 2.95 L Cancelled MCV 111.5 H Cancelled MCHC 31.7 L Cancelled RDW 17.2 H D Cancelled MPV 8.2 Cancelled Neutrophils % Y Cancelled Lymphocytes % Y Cancelled Monocytes % Cancelled Eosinophils % Cancelled Basophils % Cancelled Medical Decision Making 45-year-old male history of asthma, profound mental retardation, cerebral palsy , functional quadriplegia, recurrent epistaxis, seizure disorder, history of Katherine fundoplication (stomach wrapped to prevent reflux), s/p PEG, recurrent pneumonia, respiratory failure, oxygen dependent, sent from [facility] for upper respiratory congestion. Patient sedated, intubated and on mechanical ventilation in ICU care. There is concern for possible aspiration PNA. CXR w/ progressive R infiltrate, effusion and congestion. Continue ICU monitoring. Blood support as required. Minimally responsive and does have underlying seizure disorder but no witnessed events at senior care. Patient on IV Abx. ID following. Can continue seizure home medications. Ativan PRN can also be used but no motor abnormal activity noted on exam or witnessed. Critical care time 35 minutes.
[2017-06-23] MEDS ORDERED: PT OWN MED DRAWER 7, Y5N ONE (10:05)
[2017-06-23] MEDS: PANTOPRAZOLE SODIUM 40 MG/100 ML PRE-DOCKED IVPB SCH (10:08)
[2017-06-23] MEDS: LORATADINE 10 MG TABLET GT SCH (10:09)
[2017-06-23] MEDS: VALPROATE SODIUM 500 MG/5 ML VIAL IVPB SCH ×2 (10:09→21:45)
[2017-06-23] MEDS: TOPIRAMATE 25 MG TABLET (FP) NR SCH ×2 (10:10→21:46)
[2017-06-23] MEDS: lamoTRIgine 100 MG TABLET (FP) GT SCH ×2 (10:10→21:45)
[2017-06-23] MEDS: MUPIROCIN 2% TOPICAL OINTMENT FOR DECOLONIZATION NS SCH ×2 (10:12→21:44)
--- NOTE | 2017-06-23 12:38 | PN ---
Teaching Attending Note Name of Resident: Brady Mendez ATTENDING PHYSICIAN STATEMENT I saw and evaluated the patient. I reviewed the resident's note and discussed the case with the resident. I agree with the resident's findings and plan as documented. SUBJECTIVE: Patient seen and examined in the ICU. Intubated and sedated. No pressors. AC mode of vent. CXR : improvement in the RUL atelectasis / bilateral airspace disease Intake & Output 06/20/17 06/21/17 06/22/17 06/23/17 23:59 23:59 23:59 23:59 Intake Total 150 Balance 150 Weight 140 lb 0.002 oz 126 lb 1 oz Last Vital Signs Temp Pulse Resp BP Pulse Ox 98.6 F 60 15 85/45 100 06/23/17 12:00 06/23/17 12:00 06/23/17 12:00 06/23/17 12:00 06/23/17 10:13 Active Medications Albuterol Sulfate (Ventolin 0.083% Nebulizer Soln -) 1 amp NEB Q4H PRN PRN Reason: SHORT OF BREATH/WHEEZING Chlorhexidine Gluconate (Hibiclens For Decolonization -) 1 applic TP HS [facility] Last Admin: 06/22/17 22:13 Dose: 1 applic Clonazepam (Klonopin -) 0.5 mg GT TID [facility] Last Admin: 06/23/17 06:06 Dose: 0.5 mg Gabapentin (Neurontin -) 200 mg GT TID [facility] Last Admin: 06/23/17 06:06 Dose: 200 mg Midazolam HCl 100 mg/ Sodium (Chloride) 100 mls @ 1 mls/hr IVPB TITR G[facility]; 1 MG/ HR PRN Reason: Protocol Last Admin: 06/22/17 12:45 Dose: 1 mls/hr Sodium Chloride (Normal Saline -) 1,000 mls @ 100 mls/hr IV ASDIR [facility] Last Admin: 06/22/17 22:11 Dose: 100 mls/hr Clindamycin Phosphate (Cleocin 600 Mg Premix Ivpb -) 50 mls @ 100 mls/hr IVPB Q6H-IV [facility] Last Admin: 06/23/17 10:00 Dose: 100 mls/hr Lamotrigine (Lamictal -) 200 mg GT BID [facility] Last Admin: 06/23/17 10:10 Dose: 200 mg Levothyroxine Sodium (Synthroid -) 50 mcg GT DAILY@0700 [facility] Last Admin: 06/23/17 06:13 Dose: 50 mcg Loratadine (Claritin -) 10 mg GT DAILY [facility] Last Admin: 06/23/17 10:09 Dose: 10 mg Lorazepam (Ativan Injection -) 0.5 mg IVPUSH Q6H PRN PRN Reason: seizures Mupirocin (Bactroban Ointment (For Decolonization) -) 1 applic NS BID [facility] Stop: 06/27/17 21:59 Last Admin: 06/23/17 10:12 Dose: 1 applic Pantoprazole Sodium (Protonix 40mg Ivpb (Pre-Docked)) 40 mg IVPB DAILY [facility] Last Admin: 06/23/17 10:08 Dose: 40 mg Piperacillin Sod/Tazobactam Sod (Zosyn 3.375gm Ivpb (Pre-Docked)) 3.375 gm IVPB Q8H-IV [facility] PRN Reason: Protocol Last Admin: 06/23/17 10:09 Dose: 3.375 gm Topiramate (Topamax -) 25 mg NR BID [facility] Last Admin: 06/23/17 10:10 Dose: 25 mg Valproate Sodium (Depacon Injection -) 375 mg IVPB BID [facility] Last Admin: 06/23/17 10:09 Dose: 375 mg General: Intubated and sedated Cardiac: S1S2 Respiratory: Intubated and sedated, bilateral coarse rhonchi, no wheeze Gastrointestinal: Yes: WNL, (+) BS, Soft, PEG ...Rectal Exam: Yes: Deferred Renal/: Yes: WNL Breast(s): Yes: WNL Musculoskeletal: Yes: WNL Extremities: Yes: WNL Edema: LUE: Trace, RUE: Trace, LLE: Trace, RLE: Trace Peripheral Pulses WNL: Yes Neurological: Yes: Unresponsive ...Motor Strength: WNL Psychiatric: Yes: WNL Labs: Laboratory Results - last 24 hr 06/22/17 06/22/17 06/22/17 11:23 18:35 18:35 WBC 9.4 RBC 2.95 L Hgb 10.4 L Hct 32.9 L MCV 111.5 H MCH 35.4 H MCHC 31.7 L RDW 17.2 H D Plt Count 93 L D MPV 8.2 Neutrophils % 29.0 L Lymphocytes % 10.0 D Monocytes % 13.0 H D Eosinophils % 1.0 Band Neutrophils 5.0 D Metamyelocytes 38 H D Myelocytes 4 H D Differential Comment Manual diff done Platelet Estimate Decreased Hypochromic-Microcytic 2+ Basophilic Stippling 2+ Anisocytosis 2+ Macrocytosis 1+ Stomatocytes 3+ Puncture Site ABG pH ABG pCO2 at Pt Temp ABG pO2 at Pt Temp ABG HCO3 ABG O2 Sat (Measured) ABG O2 Content ABG Base Excess Jovanni Test O2 Delivery Device Oxygen Flow Rate Vent Mode Vent Rate Mechanical Rate PEEP Pressure Support Vent Sodium Potassium 4.2 D Chloride Carbon Dioxide Anion Gap BUN Creatinine Random Glucose Lactic Acid 2.0 Calcium Phosphorus Magnesium Creatine Kinase Troponin I TSH Valproic Acid 06/22/17 06/22/17 06/23/17 18:35 18:40 05:35 WBC 7.3 RBC 2.32 L D Hgb 8.2 L D Hct 25.3 L D MCV 109.0 H MCH 35.4 H MCHC 32.4 RDW 16.8 H Plt Count 85 L MPV 8.8 Neutrophils % 58.0 D Lymphocytes % 18.0 D Monocytes % 6.0 Eosinophils % 2.0 D Band Neutrophils 6.0 Metamyelocytes 7 H D Myelocytes 3 H D Differential Comment Manual diff done Platelet Estimate Decreased Hypochromic-Microcytic Basophilic Stippling Anisocytosis Macrocytosis Stomatocytes Puncture Site Left radial ABG pH 7.41 D ABG pCO2 at Pt Temp 46.2 H D ABG pO2 at Pt Temp 61.6 L D ABG HCO3 29.0 H ABG O2 Sat (Measured) 93.2 ABG O2 Content 11.4 L ABG Base Excess 4.4 H Jovanni Test Positive O2 Delivery Device Ot Oxygen Flow Rate 50% Vent Mode Ac Vent Rate 15 Mechanical Rate Esprit PEEP 5.0 Pressure Support Vent 400 Sodium Potassium Chloride Carbon Dioxide Anion Gap BUN Creatinine Random Glucose Lactic Acid Calcium Phosphorus Magnesium Creatine Kinase 85 Troponin I < 0.02 TSH Valproic Acid 06/23/17 06/23/17 06/23/17 05:35 07:35 10:00 WBC RBC Hgb Hct MCV MCH MCHC RDW Plt Count MPV Neutrophils % Lymphocytes % Monocytes % Eosinophils % Band Neutrophils Metamyelocytes Myelocytes Differential Comment Platelet Estimate Hypochromic-Microcytic Basophilic Stippling Anisocytosis Macrocytosis Stomatocytes Puncture Site Right radial ABG pH 7.45 ABG pCO2 at Pt Temp 40.1 ABG pO2 at Pt Temp 101.0 H D ABG HCO3 27.2 H ABG O2 Sat (Measured) 98.9 ABG O2 Content 11.4 L ABG Base Excess 3.3 H Jovanni Test Positive O2 Delivery Device Vent Oxygen Flow Rate 50% Vent Mode A/c Vent Rate 15 Mechanical Rate Y PEEP 5.0 Pressure Support Vent 400 Sodium 142 Potassium 4.1 Chloride 106 Carbon Dioxide 29 Anion Gap 7 L BUN 31 H Creatinine 0.5 L Random Glucose 76 D Lactic Acid Calcium 9.2 Phosphorus 2.0 L D Magnesium 2.1 Creatine Kinase Troponin I TSH 0.75 D Valproic Acid 52.752 Problem List - Problems (1) Aspiration pneumonia Code(s): J69.0 - PNEUMONITIS DUE TO INHALATION OF FOOD AND VOMIT (2) Hypercapnia Code(s): R06.89 - OTHER ABNORMALITIES OF BREATHING (3) Seizure Code(s): R56.9 - UNSPECIFIED CONVULSIONS (4) Asthma Code(s): J45.909 - UNSPECIFIED ASTHMA, UNCOMPLICATED Qualifiers: Asthma severity: mild intermittent Asthma complication type: uncomplicated Qualified Code(s): J45.20 - Mild intermittent asthma, uncomplicated (5) GERD (gastroesophageal reflux disease) Code(s): K21.9 - GASTRO-ESOPHAGEAL REFLUX DISEASE WITHOUT ESOPHAGITIS (6) Cerebral palsy, quadriplegic Code(s): G80.8 - OTHER CEREBRAL PALSY (7) Hypothyroidism Code(s): E03.9 - HYPOTHYROIDISM, UNSPECIFIED (8) Mental retardation Code(s): F79 - UNSPECIFIED INTELLECTUAL DISABILITIES Assessment/Plan Acute Hypercapneic/Hypoxic Respiratory Failure CP Profound MR Seizure D/O Functional quadriplegia Asthma Recurrent PNA Atelectasis PLAN: -SBTs as tolerated -BD TX -Daily Sedation vacation -ABX coverage -IVF -Palliative care evaluation for GOC (requested by mother) -VTE prophylaxis Dr Rivas CCTime 35" The care of this patient involved high complexity decision making to prevent further life threatening deterioration of the patient's condition and/or to evaluate & treat vital organ system(s) failure or risk of failure.
[2017-06-23] MEDS: PROPOFOL 100 ML IVPB SCH (15:00)
--- NOTE | 2017-06-23 15:01 | CONSULT ---
Consult Consult Specialty:: infectious diseases Reason for Consultation:: resp fail;ure. septic shock. pneumonia - History of Present Illness History of Present Illness: 45-year-old male history of asthma, profound mental retardation, cerebral palsy , functional quadriplegia, recurrent epistaxis, seizure disorder, history of Katherine fundoplication (stomach wrapped to prevent reflux), s/p PEG, recurrent pneumonia, respiratory failure, oxygen dependent, sent from [facility] for upper respiratory congestion. CXR w/ progressive R infiltrate, effusion and congestion. Patient sedated, intubated and on mechanical ventilation in ICU care. There is concern for possible aspiration PNA. Minimally responsive History taken from the charts as patient is intubated and sedated - History Source History Provided By: Transfer Record Limitations to Obtaining History: Clinical Condition - Past Medical History [employer]: Yes: Dementia, Seizure, Other (Cerebral Palsy w quadriplegia, severe mental retardation) Pulmonary: Yes: Pneumonia Gastrointestinal: Yes: GERD, Other (peg tube) Musculoskeletal: Yes: Other (scoliosis) ENT: Yes: Allergic Rhinitis Endocrine: Yes: Other (h/o hyponatremia) Additional Medical History: optic atrophy. h/o hypothermia - Past Surgical History Past Surgical History: Yes: Orchiectomy, Upper Endoscopy - Alcohol/Substance Use Hx Alcohol Use: No History of Substance Use: reports: None - Smoking History Smoking history: Never smoked Have you smoked in the past 12 months: No Aproximately how many cigarettes per day: 0 - Social History Usual Living Arrangement: Snf ADL: Support Services History of Recent Travel: No Home Medications - Allergies Allergies/Adverse Reactions: Allergies Allergy/AdvReac Type Severity Reaction Status Date / Time levofloxacin [From Levaquin] Allergy Intermediate Verified 06/22/17 10:06 Quinolones Allergy Unknown Verified 06/22/17 10:06 Cephalosporins Allergy Verified 06/22/17 10:06 - Home Medications Home Medications: Ambulatory Orders Albuterol 0.083% Nebulizer Yolanda [Ventolin 0.083% Nebulizer Soln -] 1 amp NEB Q8H PRN 06/22/17 Calcium Carbonate/Vitamin D3 [Oyster Shell 500-Vit D3 200 Tb] 1 each GT BID Clonazepam 0.5 mg GT TID 06/22/17 Diazepam [Diastat Acudial] 1 each RC PRN PRN 06/22/17 Divalproex Sodium [Depakote] 375 mg GT BID 06/22/17 Ferrous Sulfate *Liquid* [Feosol [ALCOHOL FREE]] 5 ml GT BID 06/22/17 Gabapentin 200 mg PO TID 06/22/17 Glycopyrrolate 1 mg GT TID 06/22/17 Lamotrigine [Lamictal Xr] 200 mg GT BID 06/22/17 Levothyroxine [Synthroid -] 50 mcg GT DAILY 06/22/17 Loratadine 10 mg GT DAILY 06/22/17 Multivit-Min/FA/Lycopen/Lutein [Vitrum 50+ Senior Tablet] 1 each GT DAILY Nutritional Supplement/Fiber [Promote with Fiber Liquid] 830 ml GT DAILY Polyethylene Glycol 3350 [Glycolax] 17 gm GT DAILY 06/22/17 Protein Supplement [Promod] 30 ml GT DAILY 06/22/17 Sennosides [Senna] 2 tab GT HS 06/22/17 Sodium Chloride Nasal Gel [Antlers Saline Nasal Gel -] 1 applic TP DAILY 06/22/17 Sodium Chloride Tablet - 2.5 tab PO HS 06/22/17 Sodium Chloride Tablet - 3.5 tab GT AM 06/22/17 Topiramate 25 gm GT BID 06/22/17 Family Disease History - Family Disease History Family Disease History: Other: Father, Mother Review of Systems Unable to obtain ROS, reason: unable to obtain Physical Exam Vital Signs: Vital Signs Temperature 98.2 F 06/23/17 14:00 Pulse Rate 62 06/23/17 14:00 Respiratory Rate 15 06/23/17 14:00 Blood Pressure 89/45 06/23/17 14:00 O2 Sat by Pulse Oximetry (%) 100 06/23/17 10:13 Constitutional: Yes: Other Eyes: Yes: Conjunctiva Clear Neck: Yes: Supple Cardiovascular: Yes: S1, S2 Respiratory: Yes: Intubated, Mechanically Ventilated Gastrointestinal: Yes: Normal Bowel Sounds, Soft, Other (peg in place) Musculoskeletal: Yes: Other Extremities: Yes: Other Neurological: Yes: Other Psychiatric: Yes: Other Labs: CBC, BMP 06/23/17 05:35 06/23/17 05:35 Imaging - Results Chest X-ray: Report Reviewed, Image Reviewed Assessment/Plan Problem List - Problems (1) Aspiration pneumonia Code(s): J69.0 - PNEUMONITIS DUE TO INHALATION OF FOOD AND VOMIT (2) Hypercapnia Code(s): R06.89 - OTHER ABNORMALITIES OF BREATHING (3) Seizure Code(s): R56.9 - UNSPECIFIED CONVULSIONS (4) Asthma Code(s): J45.909 - UNSPECIFIED ASTHMA, UNCOMPLICATED Qualifiers: Asthma severity: mild intermittent Asthma complication type: uncomplicated Qualified Code(s): J45.20 - Mild intermittent asthma, uncomplicated (5) GERD (gastroesophageal reflux disease) Code(s): K21.9 - GASTRO-ESOPHAGEAL REFLUX DISEASE WITHOUT ESOPHAGITIS (6) Cerebral palsy, quadriplegic Code(s): G80.8 - OTHER CEREBRAL PALSY (7) Hypothyroidism Code(s): E03.9 - HYPOTHYROIDISM, UNSPECIFIED (8) Mental retardation Code(s): F79 - UNSPECIFIED INTELLECTUAL DISABILITIES plan patient intubated and sedated will start patient on clionda and zosyn await for all cx report continue as per icu rest as per the teams nutrition cc time 45 min
--- NOTE | 2017-06-23 16:12 | PN ---
Progress Note, Physician History of Present Illness: Patient is intubated and sedated. CXR shows interval improvement. will attempt to wean once long acting sedation has worn off. The patient's family expressed desire to make patient DNR/DNI, but since the patient is a resident of [facility], he does not meet the criteria for DNR/DNI as outlined by the [facility]OL[facility] form. - Current Medication List Current Medications: Active Medications Albuterol Sulfate (Ventolin 0.083% Nebulizer Soln -) 1 amp NEB Q4H PRN PRN Reason: SHORT OF BREATH/WHEEZING Chlorhexidine Gluconate (Hibiclens For Decolonization -) 1 applic TP HS [facility] Last Admin: 06/22/17 22:13 Dose: 1 applic Clonazepam (Klonopin -) 0.5 mg GT TID [facility] Last Admin: 06/23/17 15:11 Dose: 0.5 mg Gabapentin (Neurontin -) 200 mg GT TID [facility] Last Admin: 06/23/17 15:00 Dose: 200 mg Sodium Chloride (Normal Saline -) 1,000 mls @ 100 mls/hr IV ASDIR [facility] Last Admin: 06/22/17 22:11 Dose: 100 mls/hr Propofol (Diprivan -) 100 mls @ 1.715 mls/hr IVPB TITR [facility]; 5 MCG/KG/MIN PRN Reason: Protocol Lamotrigine (Lamictal -) 200 mg GT BID [facility] Last Admin: 06/23/17 10:10 Dose: 200 mg Levothyroxine Sodium (Synthroid -) 50 mcg GT DAILY@0700 [facility] Last Admin: 06/23/17 06:13 Dose: 50 mcg Loratadine (Claritin -) 10 mg GT DAILY [facility] Last Admin: 06/23/17 10:09 Dose: 10 mg Lorazepam (Ativan Injection -) 0.5 mg IVPUSH Q6H PRN PRN Reason: seizures Mupirocin (Bactroban Ointment (For Decolonization) -) 1 applic NS BID [facility] Stop: 06/27/17 21:59 Last Admin: 06/23/17 10:12 Dose: 1 applic Pantoprazole Sodium (Protonix 40mg Ivpb (Pre-Docked)) 40 mg IVPB DAILY [facility] Last Admin: 06/23/17 10:08 Dose: 40 mg Piperacillin Sod/Tazobactam Sod (Zosyn 3.375gm Ivpb (Pre-Docked)) 3.375 gm IVPB Q8H-IV [facility] PRN Reason: Protocol Last Admin: 06/23/17 10:09 Dose: 3.375 gm Topiramate (Topamax -) 25 mg NR BID [facility] Last Admin: 06/23/17 10:10 Dose: 25 mg Valproate Sodium (Depacon Injection -) 375 mg IVPB BID [facility] Last Admin: 06/23/17 10:09 Dose: 375 mg - Objective Vital Signs: Vital Signs Temperature 98.2 F 06/23/17 14:00 Pulse Rate 62 06/23/17 14:00 Respiratory Rate 15 06/23/17 14:00 Blood Pressure 89/45 06/23/17 14:00 O2 Sat by Pulse Oximetry (%) 100 06/23/17 10:13 Constitutional: Yes: Other (Intubated and sedated) HENT: Yes: Atraumatic, Normocephalic Neck: Yes: Trachea Midline Cardiovascular: Yes: Regular Rate and Rhythm, S1, S2. No: Gallop, Murmur, Rub Respiratory: Yes: Regular, Mechanically Ventilated, Other (wheezes and crackles in all lung [place]) Gastrointestinal: Yes: Normal Bowel Sounds, Soft. No: Tenderness, Rebound Neurological: Yes: Other (limited exam due to sedation) Labs: CBC, BMP 06/23/17 05:35 06/23/17 05:35 Problem List - Problems (1) Aspiration pneumonia Code(s): J69.0 - PNEUMONITIS DUE TO INHALATION OF FOOD AND VOMIT (2) Hypercapnia Code(s): R06.89 - OTHER ABNORMALITIES OF BREATHING (3) Seizure Code(s): R56.9 - UNSPECIFIED CONVULSIONS (4) Asthma Code(s): J45.909 - UNSPECIFIED ASTHMA, UNCOMPLICATED Qualifiers: Asthma severity: mild intermittent Asthma complication type: uncomplicated Qualified Code(s): J45.20 - Mild intermittent asthma, uncomplicated (5) Cerebral palsy, quadriplegic Code(s): G80.8 - OTHER CEREBRAL PALSY (6) Mental retardation Code(s): F79 - UNSPECIFIED INTELLECTUAL DISABILITIES Assessment/Plan 46 yo w/ PMH CP, MR seizure, asthma, o2 dependent respiratory failure came to the ER from [facility] for upper respiratory congestion. He was intubated in the ED and brought to the ICU for further management. Neuro: -intubated and sedated. Respiratory: -patient w/ PMH recurrent pneumonia c/o congestion 2/2 aspiration PNA vs mucous plugging -cxr shows mildly improving right lung opacification -Clindamycin 600mg IV Q6H -Zosyn 3.375g IV -blood cx pending -Patient intubated - will conduct spontaneous breathing trials -d/c'd versed drip and switched to propofol gtt -will wean to extubate FEN: -NS @ 100 -Phosphorous of 2; will replete -Promote @ 42ml/hr. 1L 24 hr goal with 10ml of water Prophylaxsis: -SCDs -protonix 40mg IV daily Dispo: -continue to monitor in ICU
[2017-06-23 16:20] LABS: URINE APPEARANCE TURBID; URINE BILIRUBIN NEGATIVE (NEGATIVE); URINE BLOOD 1+ (NEGATIVE); URINE GLUCOSE (UA) NEGATIVE (NEGATIVE); URINE KETONE NEGATIVE (NEGATIVE)
[2017-06-23 16:21] LABS: URINE COLOR YELLOW; URINE LEUK ESTERASE 2+ (NEGATIVE); URINE NITRITE POSITIVE (NEGATIVE); URINE PROTEIN 2+ (NEGATIVE); URINE UROBILINOGEN NORMAL mg/dL (0.2-1.0)
[2017-06-23 16:22] LABS: URINE MUCUS RARE; URINE RBC 21 /hpf (0-3); URINE WBC 949 /hpf (3-5)
[2017-06-23] MEDS: SODIUM CHLORIDE 1,000 ML IV SCH (19:54)
[2017-06-23] MEDS: CHLORHEXIDINE GLUCONATE 4% CLEANSER FOR DECOLONIZATION TP SCH (21:45)
[2017-06-23] MEDS: NAPH,MB-DB/K PH,MBDB POWDER PACKET PO SCH (21:45)
[2017-06-24] MEDS: PIPERACILLIN/TAZOB 3.375 GM/50 ML PRE-DOCKED IVPB SCH ×3 (02:02→17:19)
[2017-06-24] MEDS: clonazePAM 0.5 MG TABLET GT SCH ×3 (05:56→21:54)
[2017-06-24] MEDS: GABAPENTIN 100 MG CAPSULE (FP) GT SCH ×3 (05:56→21:54)
[2017-06-24] MEDS: LEVOTHYROXINE NA 50 MCG TABLET (FP) GT SCH (06:00)
[2017-06-24 06:28] LABS: BASOPHIL 0.6 % (0-2.0); EOSINOPHIL 1.4 % (0-4.5); MCH 36.1 pg (25.7-33.7); MEAN CELL VOLUME 109.2 fl (80-96); MEAN PLT VOLUME 9.5 fl (7.5-11.1); NEUTROPHILS 59.2 % (42.8-82.8); PLATELET COUNT 105 K/MM3 (134-434); RDW 17.6 % (11.9-15.9); WHITE BLOOD COUNT 7.1 K/mm3 (4.0-10.0)
[2017-06-24 07:05] LABS: ALBUMIN 1.6 g/dl (3.4-5.0); ANION GAP 8 (8-16); CALCIUM 8.9 mg/dL (8.5-10.1); CO2 26 mmol/L (21-32); CREATININE 0.6 mg/dL (0.7-1.3); GLUCOSE,RANDOM 89 mg/dL (74-106); MAGNESIUM 2.2 mg/dL (1.8-2.4); PHOSPHOROUS 2.7 mg/dL (2.5-4.9); SGOT/AST 34 U/L (15-37); SGPT/ALT 27 U/L (12-78)
[2017-06-24 07:07] LABS: ALK PHOS 244 U/L (45-117); BILIRUBIN,TOTAL 0.6 mg/dL (0.2-1.0); TOT PROT 5.4 g/dl (6.4-8.2)
[2017-06-24] MEDS: DOPAMINE 400 MG/D5W - 250 ML IVPB SCH (07:30)
--- NOTE | 2017-06-24 08:17 | PN ---
Physical Exam: SUBJECTIVE: Patient seen and examined at bedside. Pt is intubated and sedated in no acute distress. OBJECTIVE: Vital Signs Period Temp Pulse Resp BP Sys/Celestin Pulse Ox Last 24 Hr 97 F-98.7 F 40-66 15-22 71-89/40-56 94-100 GENERAL: The patient is sedated and intubated, in no acute distress. HEAD: Normal with no signs of trauma. EYES: PERRL, extraocular movements intact cannot be assessed, sclera anicteric, conjunctiva clear. No ptosis. ENT: Ears normal, nares patent, oropharynx clear without exudates, moist mucous membranes. NECK: Trachea midline, full range of motion, supple. LUNGS: Breath sounds equal course, breathing on vent HEART: bradycardic, S1, S2 without murmur, rub or gallop. ABDOMEN: Soft, nontender, nondistended, normoactive bowel sounds, no guarding, no rebound, no hepatosplenomegaly, no masses. EXTREMITIES: 2+ pulses, warm, well-perfused, no edema. NEUROLOGICAL: Cranial nerves II through XII grossly intact. Normal speech, gait not observed. PSYCH: Normal mood, normal affect. SKIN: Warm, dry, normal turgor, no rashes or lesions noted Laboratory Results - last 24 hr 06/23/17 06/23/17 06/23/17 05:35 10:00 14:38 WBC 7.3 RBC 2.32 L D Hgb 8.2 L D Hct 25.3 L D MCV 109.0 H MCH 35.4 H MCHC 32.4 RDW 16.8 H Plt Count 85 L MPV 8.8 Neutrophils % 58.0 D Lymphocytes % 18.0 D Monocytes % 6.0 Eosinophils % 2.0 D Basophils % Band Neutrophils 6.0 Metamyelocytes 7 H D Myelocytes 3 H D Differential Comment Manual diff done Platelet Estimate Decreased Sodium Potassium Chloride Carbon Dioxide Anion Gap BUN Creatinine Creat Clearance w eGFR Random Glucose Calcium Phosphorus Magnesium Total Bilirubin AST ALT Alkaline Phosphatase Total Protein Albumin Urine Color Yellow Urine Appearance Turbid Urine pH 5.0 D Ur Specific [place] 1.015 Urine Protein 2+ H Urine Glucose (UA) Negative Urine Ketones Negative Urine Blood 1+ H Urine Nitrite Positive Urine Bilirubin Negative Urine Urobilinogen Normal Ur Leukocyte Esterase 2+ H Urine RBC 21 Urine WBC 949 Urine Mucus Rare Valproic Acid 52.752 08/15/17 08/15/17 05:15 05:15 WBC 7.1 RBC 2.15 L Hgb 7.8 L Hct 23.5 L MCV 109.2 H MCH 36.1 H MCHC 33.0 RDW 17.6 H Plt Count 105 L D MPV 9.5 Neutrophils % 59.2 Lymphocytes % 31.0 D Monocytes % 7.8 Eosinophils % 1.4 Basophils % 0.6 Band Neutrophils Metamyelocytes Myelocytes Differential Comment Platelet Estimate Sodium 142 Potassium 3.8 Chloride 108 H Carbon Dioxide 26 Anion Gap 8 BUN 33 H Creatinine 0.6 L Creat Clearance w eGFR > 60 Random Glucose 89 Calcium 8.9 Phosphorus 2.7 D Magnesium 2.2 Total Bilirubin 0.6 AST 34 D ALT 27 D Alkaline Phosphatase 244 H D Total Protein 5.4 L D Albumin 1.6 L D Urine Color Urine Appearance Urine pH Ur Specific [place] Urine Protein Urine Glucose (UA) Urine Ketones Urine Blood Urine Nitrite Urine Bilirubin Urine Urobilinogen Ur Leukocyte Esterase Urine RBC Urine WBC Urine Mucus Valproic Acid Active Medications Generic Name Dose Route Start Last Admin Trade Name Freq PRN Reason Stop Dose Admin Albuterol Sulfate 1 amp 06/22/17 20:41 Ventolin 0.083% Nebulizer Soln - NEB Q4H PRN SHORT OF BREATH/WHEEZING Chlorhexidine Gluconate 1 applic 06/22/17 22:00 06/23/17 21:45 Hibiclens For Decolonization - TP 1 applic HS [facility] Administration Clonazepam 0.5 mg 06/22/17 22:00 06/24/17 05:56 Klonopin - GT 0.5 mg TID [facility] Administration Gabapentin 200 mg 06/22/17 22:00 06/24/17 05:56 Neurontin - GT 200 mg TID [facility] Administration Sodium Chloride 1,000 mls @ 100 mls/hr 06/22/17 19:00 06/23/17 19:54 Normal Saline - IV 100 mls/hr ASDIR [facility] Administration Propofol 100 mls @ 1.715 mls/hr 06/23/17 15:00 06/23/17 19:53 Diprivan - IVPB 10 mcg/kg/min TITR [facility] Titration Protocol 5 MCG/KG/MIN Clindamycin Phosphate 50 mls @ 100 mls/hr 06/24/17 10:00 Cleocin 600 Mg Premix Ivpb - IVPB Q8H-IV [facility] Dopamine HCl/Dextrose 250 mls @ 10.993 mls/hr 06/24/17 07:45 Dopamine 400 Mg/D5w - IVPB TITR [facility] Protocol 5 MCG/KG/MIN Lamotrigine 200 mg 06/22/17 22:00 06/23/17 21:45 Lamictal - GT 200 mg BID [facility] Administration Levothyroxine Sodium 50 mcg 06/23/17 07:00 06/24/17 06:00 Synthroid - GT 50 mcg DAILY@0700 [facility] Administration Loratadine 10 mg 06/23/17 10:00 06/23/17 10:09 Claritin - GT 10 mg DAILY [facility] Administration Lorazepam 0.5 mg 06/22/17 16:25 Ativan Injection - IVPUSH Q6H PRN seizures Mupirocin 1 applic 06/22/17 22:00 06/23/17 21:44 Bactroban Ointment (For Decolonization) - NS 06/27/17 21:59 1 applic BID [facility] Administration Pantoprazole Sodium 40 mg 06/23/17 10:00 06/23/17 10:08 Protonix 40mg Ivpb (Pre-Docked) IVPB 40 mg DAILY [facility] Administration Piperacillin Sod/Tazobactam Sod 3.375 gm 06/22/17 18:00 06/24/17 02:02 Zosyn 3.375gm Ivpb (Pre-Docked) IVPB 3.375 gm Q8H-IV [facility] Administration Protocol Potassium Phos/Sodium Phos 1 packet 06/23/17 22:00 06/23/17 21:45 Phos-Nak Packet - PO 1 packet BID [facility] Administration Topiramate 25 mg 06/22/17 22:00 06/23/17 21:46 Topamax - NR 25 mg BID [facility] Administration Valproate Sodium 375 mg 06/22/17 22:00 06/23/17 21:45 Depacon Injection - IVPB 375 mg BID [facility] Administration Imaging: CXR (06/24): congestive and infiltrative changes have improved slightly compared to prior CXR ASSESSMENT/PLAN: 46 year old male pmh cerebral palsy, developmental disability, seizure disorder , asthma, and O2 dependent respiratory failure arrived from [facility] for upper respiratory distress and congestion. Pt was intubated and admitted to ICU. 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 -begin heating blanket Respiratory: -patient w/ congestion likely 2/2 aspiration pneumonia or mucous plug, cxr shows mild improvement in aeration compared to prior -continue clindamycin 600mg -continue zosyn -blood cultures negative -patient remains intubated Cardiovascular: patient was bradycardic this morning with HR 38-40 and a MAP of ~55 -D/C propofol sedation to boost HR -begin 5mg dopamine infusion for BP support FEN: -continue NS @ 100 -lytes are stable, repeat in am Prophylaxsis: -SCDs -continue protonix 40mg IV daily Dispo: -continue to monitor in ICU -f/u with palliative care Problem List - Problems (1) Pneumonia Code(s): J18.9 - PNEUMONIA, UNSPECIFIED ORGANISM Qualifiers: Pneumonia type: due to unspecified organism Laterality: right Lung location: unspecified part of lung Qualified Code(s): J18.9 - Pneumonia, unspecified organism (2) Seizure Code(s): R56.9 - UNSPECIFIED CONVULSIONS (3) Asthma Code(s): J45.909 - UNSPECIFIED ASTHMA, UNCOMPLICATED Qualifiers: Asthma severity: mild intermittent Asthma complication type: uncomplicated Qualified Code(s): J45.20 - Mild intermittent asthma, uncomplicated (4) Cerebral palsy, quadriplegic Code(s): G80.8 - OTHER CEREBRAL PALSY (5) Hypothermia Code(s): T68.XXXA - HYPOTHERMIA, INITIAL ENCOUNTER (6) Hypothyroidism Code(s): E03.9 - HYPOTHYROIDISM, UNSPECIFIED (7) Mental retardation Code(s): F79 - UNSPECIFIED INTELLECTUAL DISABILITIES Visit type - Emergency Visit Emergency Visit: No - New Patient This patient is new to me today: Yes Date on this admission: 06/24/17 - Critical Care Critical Care patient: Yes Total Critical Care Time (in minutes): 30 Critical Care Statement: The care of this patient involved high complexity decision making to prevent further life threatening deterioration of the patient 's condition and/or to evaluate & treat vital organ system(s) failure or risk of failure.
[2017-06-24] MEDS ORDERED: PT OWN MED DRAWER 7, Y5N ONE ×2 (08:26→21:52)
--- NOTE | 2017-06-24 08:43 | PN ---
Physical Exam: SUBJECTIVE: Patient seen and examined, remains in the ICU. OBJECTIVE: Hypotensive (70s/40s) with bradycardia: started on Dopamine Hypthermic 94F rectal on a alon hugger Respiratory failure (remains intubated) I restarted Clindamycin, remains on Zosyn hmg/hct dropping, will monitor as it may be dilutional, if continues to drop, prbc to be considered - recheck CBC at noon platelets stabilizing Chest xray 06/24: slight improvement, less congestion Vianca Emiliano (Mom) [phone], I spoke to patient mother and updated her on patient status. She again said patient is a DNR/DNI. I spoke to her about patient status and updated her on same. States she is going to fax me legal documents that he states appoint her legal guardianship. Fax number provided. Danii Freed informed of my conversation with pt mom, will consult Ethics (Dr. Silva). IMPORTANT CONTACTS TO NOTE: Vianca Cummings (Mom) [phone] scallop binder physician at [facility] [phone] [facility] recreation attendant supervisor Vital Signs Period Temp Pulse Resp BP Sys/Celestin Pulse Ox Last 24 Hr 97 F-98.7 F 40-66 15-22 71-89/40-56 94-100 GENERAL: sedated, intubated HEAD: oral bleeding, dry blood in mouth EARS, NOSE, THROAT: oral bleeding, dry blood in mouth, unable to view bishop LUNGS: less congestion, rhonchorus lungs ABDOMEN: +peg tube UPPER EXTREMITIES: No peripheral edema. LOWER EXTREMITIES: non pitting edema NEUROLOGICAL: intubated, sedated Laboratory Results - last 24 hr 06/23/17 06/23/17 06/23/17 05:35 10:00 14:38 WBC 7.3 RBC 2.32 L D Hgb 8.2 L D Hct 25.3 L D MCV 109.0 H MCH 35.4 H MCHC 32.4 RDW 16.8 H Plt Count 85 L MPV 8.8 Neutrophils % 58.0 D Lymphocytes % 18.0 D Monocytes % 6.0 Eosinophils % 2.0 D Basophils % Band Neutrophils 6.0 Metamyelocytes 7 H D Myelocytes 3 H D Differential Comment Manual diff done Platelet Estimate Decreased Sodium Potassium Chloride Carbon Dioxide Anion Gap BUN Creatinine Creat Clearance w eGFR Random Glucose Calcium Phosphorus Magnesium Total Bilirubin AST ALT Alkaline Phosphatase Total Protein Albumin Urine Color Yellow Urine Appearance Turbid Urine pH 5.0 D Ur Specific [place] 1.015 Urine Protein 2+ H Urine Glucose (UA) Negative Urine Ketones Negative Urine Blood 1+ H Urine Nitrite Positive Urine Bilirubin Negative Urine Urobilinogen Normal Ur Leukocyte Esterase 2+ H Urine RBC 21 Urine WBC 949 Urine Mucus Rare Valproic Acid 52.752 06/24/17 06/24/17 05:15 05:15 WBC 7.1 RBC 2.15 L Hgb 7.8 L Hct 23.5 L MCV 109.2 H MCH 36.1 H MCHC 33.0 RDW 17.6 H Plt Count 105 L D MPV 9.5 Neutrophils % 59.2 Lymphocytes % 31.0 D Monocytes % 7.8 Eosinophils % 1.4 Basophils % 0.6 Band Neutrophils Metamyelocytes Myelocytes Differential Comment Platelet Estimate Sodium 142 Potassium 3.8 Chloride 108 H Carbon Dioxide 26 Anion Gap 8 BUN 33 H Creatinine 0.6 L Creat Clearance w eGFR > 60 Random Glucose 89 Calcium 8.9 Phosphorus 2.7 D Magnesium 2.2 Total Bilirubin 0.6 AST 34 D ALT 27 D Alkaline Phosphatase 244 H D Total Protein 5.4 L D Albumin 1.6 L D Urine Color Urine Appearance Urine pH Ur Specific [place] Urine Protein Urine Glucose (UA) Urine Ketones Urine Blood Urine Nitrite Urine Bilirubin Urine Urobilinogen Ur Leukocyte Esterase Urine RBC Urine WBC Urine Mucus Valproic Acid Active Medications Generic Name Dose Route Start Last Admin Trade Name Freq PRN Reason Stop Dose Admin Albuterol Sulfate 1 amp 06/22/17 20:41 Ventolin 0.083% Nebulizer Soln - NEB Q4H PRN SHORT OF BREATH/WHEEZING Chlorhexidine Gluconate 1 applic 06/22/17 22:00 06/23/17 21:45 Hibiclens For Decolonization - TP 1 applic HS GILL Administration Clonazepam 0.5 mg 06/22/17 22:00 06/24/17 05:56 Klonopin - GT 0.5 mg TID GILL Administration Gabapentin 200 mg 06/22/17 22:00 06/24/17 05:56 Neurontin - GT 200 mg TID GILL Administration Sodium Chloride 1,000 mls @ 100 mls/hr 06/22/17 19:00 06/23/17 19:54 Normal Saline - IV 100 mls/hr ASDIR GILL Administration Propofol 100 mls @ 1.715 mls/hr 06/23/17 15:00 06/24/17 07:30 Diprivan - IVPB 0 mcg/kg/min TITR GILL Titration Protocol 5 MCG/KG/MIN Clindamycin Phosphate 50 mls @ 100 mls/hr 06/24/17 10:00 Cleocin 600 Mg Premix Ivpb - IVPB Q8H-IV GILL Dopamine HCl/Dextrose 250 mls @ 10.993 mls/hr 06/24/17 07:45 06/24/17 07:30 Dopamine 400 Mg/D5w - IVPB 10.993 mls/hr TITR GILL Administration Protocol 5 MCG/KG/MIN Lamotrigine 200 mg 06/22/17 22:00 06/23/17 21:45 Lamictal - GT 200 mg BID GILL Administration Levothyroxine Sodium 50 mcg 06/23/17 07:00 06/24/17 06:00 Synthroid - GT 50 mcg DAILY@0700 GILL Administration Loratadine 10 mg 06/23/17 10:00 06/23/17 10:09 Claritin - GT 10 mg DAILY GILL Administration Lorazepam 0.5 mg 06/22/17 16:25 Ativan Injection - IVPUSH Q6H PRN seizures Mupirocin 1 applic 06/22/17 22:00 06/23/17 21:44 Bactroban Ointment (For Decolonization) - NS 06/27/17 21:59 1 applic BID GILL Administration Pantoprazole Sodium 40 mg 06/23/17 10:00 06/23/17 10:08 Protonix 40mg Ivpb (Pre-Docked) IVPB 40 mg DAILY GILL Administration Piperacillin Sod/Tazobactam Sod 3.375 gm 06/22/17 18:00 06/24/17 02:02 Zosyn 3.375gm Ivpb (Pre-Docked) IVPB 3.375 gm Q8H-IV GILL Administration Protocol Potassium Phos/Sodium Phos 1 packet 06/23/17 22:00 06/23/17 21:45 Phos-Nak Packet - PO 1 packet BID GILL Administration Topiramate 25 mg 06/22/17 22:00 06/23/17 21:46 Topamax - NR 25 mg BID GILL Administration Valproate Sodium 375 mg 06/22/17 22:00 06/23/17 21:45 Depacon Injection - IVPB 375 mg BID GILL Administration ASSESSMENT/PLAN: Patient is a 46 year old male with a significant past medical history of asthma , profound mental retardation, cerebral palsy, functional quadriplegia, recurrent epistaxis, seizure disorder, history of Katherine fundoplication ( stomach wrapped to prevent reflux), s/p PEG, recurrent pneumonia, respiratory failure, oxygen dependent, sent from [facility] for upper respiratory congestion and difficulty breathing. Imaging: Chest xray 06/24: slight improvement of aertion, congestion diminished slightly Pulmonary: Septic Shock likely 2/2 to Aspiration pnemonia, vs HCAP/upper respiratory infection with respiratory Failure - acute A/P: Remains ntubated and sedated in ICU, on dopamine, Blood and urine cultures pending Hypotensive (70s/40s) with bradycardia: started on Dopamine Hypthermic 94F rectal on a alon hugger Respiratory failure (remains intubated) I restarted Clindamycin, remains on Zosyn Given Vanco and Azithromycin in the ED, Now on Zosyn (day 3) and added Clindamycin iv as it seem to have been d/c yesterday Sputum culture ordered, oralia ID consulted Neurology: Seizure disorder - chronic A/P: Patient presented so the ED with dry blood on oral cavity with tongue laceration Likely had a seizure which may have caused him to aspirate Continue home anti-seizure medications Ativan added for any seizure episodes Valporic acid levels within normal limits Neuro notes reviewed Neuro following Endocrine: Hypothyroidism - chronic A/P: On Synthroid TSH within normal limits Cerebral Palsy/Qudriplegic - chronic A/P: Turn and position Dependent on all ADLs Hematology: Thrombocytopenia - acute on chronic A/P: Likely secondary to sepsis. Monitor platelet counts, improving Hold anticoags Anemiam - acute A/P; low h/h, likely dilutional, recheck CBC afternoon PRBC if hmg continues to drup F.E.N. Fluids: NS @ 100cc/hr Electrolytes: monitor DVT Proph: DVT: SCDs, no AC secondary to thrombocytopenia GI: Protonix ivpb Disposition: Full Code. Code status confirmed with [facility] recreation attendant supervisor. Visit type - Emergency Visit Emergency Visit: Yes ED Registration Date: 06/22/17 Care time: The patient presented to the Emergency Department on the above date and was hospitalized for further evaluation of their emergent condition. - New Patient This patient is new to me today: No - Critical Care Critical Care patient: Yes Total Critical Care Time (in minutes): 60 Critical Care Statement: The care of this patient involved high complexity decision making to prevent further life threatening deterioration of the patient 's condition and/or to evaluate & treat vital organ system(s) failure or risk of failure. - Discharge Referral Referred to [facility] Yes
[2017-06-24] MEDS: MUPIROCIN 2% TOPICAL OINTMENT FOR DECOLONIZATION NS SCH ×2 (09:07→21:53)
[2017-06-24] MEDS: PANTOPRAZOLE SODIUM 40 MG/100 ML PRE-DOCKED IVPB SCH (09:07)
--- NOTE | 2017-06-24 09:58 | PN ---
Progress Note (short form) - Note Progress Note: Neurology History of Present Illness 45-year-old male history of asthma, profound mental retardation, cerebral palsy , functional quadriplegia, recurrent epistaxis, seizure disorder, history of Katherine fundoplication (stomach wrapped to prevent reflux), s/p PEG, recurrent pneumonia, respiratory failure, oxygen dependent, sent from [facility] for upper respiratory congestion. CXR w/ progressive R infiltrate, effusion and congestion. Patient sedated, intubated and on mechanical ventilation in ICU care. There is concern for possible aspiration PNA. Minimally responsive and does have underlying seizure disorder but no witnessed events at correction. Patient on IV Abx. ID following. Can continue seizure home medications. Ativan PRN can also be used but no motor abnormal activity noted on exam or witnessed. No significant improvement overnight. Remains in ICU with close monitoring. Active Medications Albuterol Sulfate (Ventolin 0.083% Nebulizer Soln -) 1 amp NEB Q4H PRN PRN Reason: SHORT OF BREATH/WHEEZING Chlorhexidine Gluconate (Hibiclens For Decolonization -) 1 applic TP HS GILL Last Admin: 06/23/17 21:45 Dose: 1 applic Clonazepam (Klonopin -) 0.5 mg GT TID GILL Last Admin: 06/24/17 05:56 Dose: 0.5 mg Gabapentin (Neurontin -) 200 mg GT TID GILL Last Admin: 06/24/17 05:56 Dose: 200 mg Sodium Chloride (Normal Saline -) 1,000 mls @ 100 mls/hr IV ASDIR GILL Last Admin: 06/23/17 19:54 Dose: 100 mls/hr Propofol (Diprivan -) 100 mls @ 1.715 mls/hr IVPB TITR GILL; 5 MCG/KG/MIN PRN Reason: Protocol Last Titration: 06/24/17 07:30 Dose: 0 mcg/kg/min Clindamycin Phosphate (Cleocin 600 Mg Premix Ivpb -) 50 mls @ 100 mls/hr IVPB Q8H-IV GILL Dopamine HCl/Dextrose (Dopamine 400 Mg/D5w -) 250 mls @ 10.993 mls/hr IVPB TITR GILL; 5 MCG/KG/MIN PRN Reason: Protocol Last Admin: 06/24/17 07:30 Dose: 10.993 mls/hr Lamotrigine (Lamictal -) 200 mg GT BID [facility] Last Admin: 06/23/17 21:45 Dose: 200 mg Levothyroxine Sodium (Synthroid -) 50 mcg GT DAILY@0700 [facility] Last Admin: 06/24/17 06:00 Dose: 50 mcg Loratadine (Claritin -) 10 mg GT DAILY [facility] Last Admin: 06/23/17 10:09 Dose: 10 mg Lorazepam (Ativan Injection -) 0.5 mg IVPUSH Q6H PRN PRN Reason: seizures Mupirocin (Bactroban Ointment (For Decolonization) -) 1 applic NS BID [facility] Stop: 06/27/17 21:59 Last Admin: 06/24/17 09:07 Dose: 1 applic Pantoprazole Sodium (Protonix 40mg Ivpb (Pre-Docked)) 40 mg IVPB DAILY [facility] Last Admin: 06/24/17 09:07 Dose: 40 mg Piperacillin Sod/Tazobactam Sod (Zosyn 3.375gm Ivpb (Pre-Docked)) 3.375 gm IVPB Q8H-IV GILL PRN Reason: Protocol Last Admin: 06/24/17 09:06 Dose: 3.375 gm Potassium Phos/Sodium Phos (Phos-Nak Packet -) 1 packet PO BID [facility] Last Admin: 06/23/17 21:45 Dose: 1 packet Topiramate (Topamax -) 25 mg NR BID [facility] Last Admin: 06/23/17 21:46 Dose: 25 mg Valproate Sodium (Depacon Injection -) 375 mg IVPB BID [facility] Last Admin: 06/23/17 21:45 Dose: 375 mg *Physical Exam Vital Signs Temperature 97 F L 06/24/17 04:00 Pulse Rate 56 L 06/24/17 08:00 Respiratory Rate 19 06/24/17 08:00 Blood Pressure 96/51 06/24/17 08:00 O2 Sat by Pulse Oximetry (%) 94 L 06/24/17 08:37 General Appearance: Yes: Appropriately Dressed, not following commands, intubated on mechanical ventilation HEENT: positive: Other (mostly coagulated blood to tongue/teeth, possibly small tongue lac) Respiratory/Chest: positive: Rhonchi, Cardiovascular: positive: S1, S2 Gastrointestinal/Abdominal: positive: Soft. negative: Mass Integumentary: positive: Dry, Warm Neuro: Pupil responsive, not following commands, responds to pain and tactile stimulation, no apparent CN deficits, no abnormal motor activity, not participating in confrontation testing CBCD WBC 7.1 K/mm3 (4.0-10.0) 06/24/17 05:15 RBC 2.15 M/mm3 (4.00-5.60) L 06/24/17 05:15 Hgb 7.8 GM/dL (11.7-16.9) L 06/24/17 05:15 Hct 23.5 % (35.4-49) L 06/24/17 05:15 MCV 109.2 fl (80-96) H 06/24/17 05:15 MCHC 33.0 g/dl (32.0-35.9) 06/24/17 05:15 RDW 17.6 % (11.9-15.9) H 06/24/17 05:15 Plt Count 105 K/MM3 (134-434) L D 06/24/17 05:15 MPV 9.5 fl (7.5-11.1) 06/24/17 05:15 CMP Sodium 142 mmol/L (136-145) 06/24/17 05:15 Potassium 3.8 mmol/L (3.5-5.1) 06/24/17 05:15 Chloride 108 mmol/L (98-107) H 06/24/17 05:15 Carbon Dioxide 26 mmol/L (21-32) 06/24/17 05:15 Anion Gap 8 (8-16) 06/24/17 05:15 BUN 33 mg/dL (7-18) H 06/24/17 05:15 Creatinine 0.6 mg/dL (0.7-1.3) L 06/24/17 05:15 Creat Clearance w eGFR > 60 (>60) 06/24/17 05:15 Calcium 8.9 mg/dL (8.5-10.1) 06/24/17 05:15 Total Bilirubin 0.6 mg/dL (0.2-1.0) 06/24/17 05:15 AST 34 U/L (15-37) D 06/24/17 05:15 ALT 27 U/L (12-78) D 06/24/17 05:15 Alkaline Phosphatase 244 U/L (45-117) H D 06/24/17 05:15 Total Protein 5.4 g/dl (6.4-8.2) L D 06/24/17 05:15 Albumin 1.6 g/dl (3.4-5.0) L D 06/24/17 05:15 Medical Decision Making 45-year-old male history of asthma, profound mental retardation, cerebral palsy , functional quadriplegia, recurrent epistaxis, seizure disorder, history of Katherine fundoplication (stomach wrapped to prevent reflux), s/p PEG, recurrent pneumonia, respiratory failure, oxygen dependent, sent from [facility] for upper respiratory congestion. Patient sedated, intubated and on mechanical ventilation in ICU care. There is concern for possible aspiration PNA. CXR w/ progressive R infiltrate, effusion and congestion. Continue ICU monitoring. Blood support as required. Minimally responsive and does have underlying seizure disorder but no witnessed events at correction. Patient on IV Abx. ID following. Can continue seizure home medications. Ativan PRN can also be used but no motor abnormal activity noted on exam or witnessed. Critical care time 35 minutes.
[2017-06-24] MEDS: NAPH,MB-DB/K PH,MBDB POWDER PACKET PO SCH ×2 (11:00→21:55)
[2017-06-24] MEDS: CLINDAMYCIN 600MG PREMIX IVPB 50 ML IVPB SCH ×2 (11:00→17:20)
[2017-06-24] MEDS: VALPROATE SODIUM 500 MG/5 ML VIAL IVPB SCH ×2 (11:00→21:54)
[2017-06-24] MEDS: lamoTRIgine 100 MG TABLET (FP) GT SCH ×2 (11:00→21:54)
[2017-06-24] MEDS: TOPIRAMATE 25 MG TABLET (FP) NR SCH ×2 (11:14→21:54)
[2017-06-24] MEDS: LORATADINE 10 MG TABLET GT SCH (11:14)
--- NOTE | 2017-06-24 11:34 | PN ---
Teaching Attending Note Name of Resident: Sunny Banda ATTENDING PHYSICIAN STATEMENT I saw and evaluated the patient. I reviewed the resident's note and discussed the case with the resident. I agree with the resident's findings and plan as documented. SUBJECTIVE: Patient seen and examined in the ICU. Remains intubated and sedated. Noted to be hypothermic and jesse this AM. Started on warming blanket and Dopamine with improvement. AC mode of vent. CXR : Some mild improvement in bilateral airspace disease Intake & Output 06/21/17 06/22/17 06/23/17 06/24/17 23:59 23:59 23:59 23:59 Intake Total 150 1218.5 1530 Output Total 1000 200 Balance 150 218.5 1330 Weight 140 lb 0.002 oz 126 lb 1 oz 129 lb 4 oz Last Vital Signs Temp Pulse Resp BP Pulse Ox 96.1 F L 66 15 112/44 94 L 06/24/17 10:00 06/24/17 10:00 06/24/17 11:09 06/24/17 10:00 06/24/17 08:37 Active Medications Albuterol Sulfate (Ventolin 0.083% Nebulizer Soln -) 1 amp NEB Q4H PRN PRN Reason: SHORT OF BREATH/WHEEZING Chlorhexidine Gluconate (Hibiclens For Decolonization -) 1 applic TP HS GILL Last Admin: 06/23/17 21:45 Dose: 1 applic Clonazepam (Klonopin -) 0.5 mg GT TID GILL Last Admin: 06/24/17 05:56 Dose: 0.5 mg Gabapentin (Neurontin -) 200 mg GT TID GILL Last Admin: 06/24/17 05:56 Dose: 200 mg Sodium Chloride (Normal Saline -) 1,000 mls @ 100 mls/hr IV ASDIR GILL Last Admin: 06/23/17 19:54 Dose: 100 mls/hr Propofol (Diprivan -) 100 mls @ 1.715 mls/hr IVPB TITR GILL; 5 MCG/KG/MIN PRN Reason: Protocol Last Titration: 06/24/17 07:30 Dose: 0 mcg/kg/min Clindamycin Phosphate (Cleocin 600 Mg Premix Ivpb -) 50 mls @ 100 mls/hr IVPB Q8H-IV GILL Last Admin: 06/24/17 11:00 Dose: 100 mls/hr Dopamine HCl/Dextrose (Dopamine 400 Mg/D5w -) 250 mls @ 10.993 mls/hr IVPB TITR GILL; 5 MCG/KG/MIN PRN Reason: Protocol Last Admin: 06/24/17 07:30 Dose: 10.993 mls/hr Lamotrigine (Lamictal -) 200 mg GT BID [facility] Last Admin: 06/24/17 11:00 Dose: 200 mg Levothyroxine Sodium (Synthroid -) 50 mcg GT DAILY@0700 [facility] Last Admin: 06/24/17 06:00 Dose: 50 mcg Loratadine (Claritin -) 10 mg GT DAILY [facility] Last Admin: 06/24/17 11:14 Dose: 10 mg Lorazepam (Ativan Injection -) 0.5 mg IVPUSH Q6H PRN PRN Reason: seizures Mupirocin (Bactroban Ointment (For Decolonization) -) 1 applic NS BID [facility] Stop: 06/27/17 21:59 Last Admin: 06/24/17 09:07 Dose: 1 applic Pantoprazole Sodium (Protonix 40mg Ivpb (Pre-Docked)) 40 mg IVPB DAILY [facility] Last Admin: 06/24/17 09:07 Dose: 40 mg Piperacillin Sod/Tazobactam Sod (Zosyn 3.375gm Ivpb (Pre-Docked)) 3.375 gm IVPB Q8H-IV GILL PRN Reason: Protocol Last Admin: 06/24/17 09:06 Dose: 3.375 gm Potassium Phos/Sodium Phos (Phos-Nak Packet -) 1 packet PO BID [facility] Last Admin: 06/24/17 11:00 Dose: 1 packet Topiramate (Topamax -) 25 mg NR BID [facility] Last Admin: 06/24/17 11:14 Dose: 25 mg Valproate Sodium (Depacon Injection -) 375 mg IVPB BID [facility] Last Admin: 06/24/17 11:00 Dose: 375 mg General: Intubated and sedated Cardiac: S1S2 Respiratory: Intubated and sedated, bilateral coarse rhonchi, no wheeze Gastrointestinal: Yes: WNL, (+) BS, Soft, PEG ...Rectal Exam: Yes: Deferred Renal/: Yes: WNL Breast(s): Yes: WNL Musculoskeletal: Yes: WNL Extremities: Yes: WNL Edema: LUE: Trace, RUE: Trace, LLE: Trace, RLE: Trace Peripheral Pulses WNL: Yes Neurological: Yes: Unresponsive ...Motor Strength: WNL Psychiatric: Yes: WNL Labs: Laboratory Results - last 24 hr 06/23/17 06/24/17 06/24/17 14:38 05:15 05:15 WBC 7.1 RBC 2.15 L Hgb 7.8 L Hct 23.5 L MCV 109.2 H MCH 36.1 H MCHC 33.0 RDW 17.6 H Plt Count 105 L D MPV 9.5 Neutrophils % 59.2 Lymphocytes % 31.0 D Monocytes % 7.8 Eosinophils % 1.4 Basophils % 0.6 Sodium 142 Potassium 3.8 Chloride 108 H Carbon Dioxide 26 Anion Gap 8 BUN 33 H Creatinine 0.6 L Creat Clearance w eGFR > 60 Random Glucose 89 Lactic Acid Calcium 8.9 Phosphorus 2.7 D Magnesium 2.2 Total Bilirubin 0.6 AST 34 D ALT 27 D Alkaline Phosphatase 244 H D Total Protein 5.4 L D Albumin 1.6 L D Urine Color Yellow Urine Appearance Turbid Urine pH 5.0 D Ur Specific [place] 1.015 Urine Protein 2+ H Urine Glucose (UA) Negative Urine Ketones Negative Urine Blood 1+ H Urine Nitrite Positive Urine Bilirubin Negative Urine Urobilinogen Normal Ur Leukocyte Esterase 2+ H Urine RBC 21 Urine WBC 949 Urine Mucus Rare 06/24/17 10:00 WBC RBC Hgb Hct MCV MCH MCHC RDW Plt Count MPV Neutrophils % Lymphocytes % Monocytes % Eosinophils % Basophils % Sodium Potassium Chloride Carbon Dioxide Anion Gap BUN Creatinine Creat Clearance w eGFR Random Glucose Lactic Acid 0.8 Calcium Phosphorus Magnesium Total Bilirubin AST ALT Alkaline Phosphatase Total Protein Albumin Urine Color Urine Appearance Urine pH Ur Specific [place] Urine Protein Urine Glucose (UA) Urine Ketones Urine Blood Urine Nitrite Urine Bilirubin Urine Urobilinogen Ur Leukocyte Esterase Urine RBC Urine WBC Urine Mucus Problem List - Problems (1) Aspiration pneumonia Code(s): J69.0 - PNEUMONITIS DUE TO INHALATION OF FOOD AND VOMIT (2) Hypercapnia Code(s): R06.89 - OTHER ABNORMALITIES OF BREATHING (3) Seizure Code(s): R56.9 - UNSPECIFIED CONVULSIONS (4) Asthma Code(s): J45.909 - UNSPECIFIED ASTHMA, UNCOMPLICATED Qualifiers: Asthma severity: mild intermittent Asthma complication type: uncomplicated Qualified Code(s): J45.20 - Mild intermittent asthma, uncomplicated (5) GERD (gastroesophageal reflux disease) Code(s): K21.9 - GASTRO-ESOPHAGEAL REFLUX DISEASE WITHOUT ESOPHAGITIS (6) Cerebral palsy, quadriplegic Code(s): G80.8 - OTHER CEREBRAL PALSY (7) Hypothyroidism Code(s): E03.9 - HYPOTHYROIDISM, UNSPECIFIED (8) Mental retardation Code(s): F79 - UNSPECIFIED INTELLECTUAL DISABILITIES Assessment/Plan Acute Hypercapneic/Hypoxic Respiratory Failure CP Profound MR Seizure D/O Functional quadriplegia Asthma Recurrent PNA Atelectasis Hypothermia -> (?) Autonomic dysfunction PLAN: -Warming blanket -Dopamine drip -SBTs as tolerated -BD TX -Daily Sedation vacation -ABX coverage -IVF -Palliative care evaluation for GOC (requested by mother) -VTE prophylaxis Dr Rivas CCTime 35" The care of this patient involved high complexity decision making to prevent further life threatening deterioration of the patient's condition and/or to evaluate & treat vital organ system(s) failure or risk of failure.
[2017-06-24 12:23] LABS: BASOPHIL 0.8 % (0-2.0); EOSINOPHIL 1.3 % (0-4.5); MCH 35.4 pg (25.7-33.7); MCHC 32.4 g/dl (32.0-35.9); MEAN CELL VOLUME 109.3 fl (80-96); MEAN PLT VOLUME 9.2 fl (7.5-11.1); NEUTROPHILS 71.2 % (42.8-82.8); PLATELET COUNT 121 K/MM3 (134-434); RDW 17.4 % (11.9-15.9); WHITE BLOOD COUNT 9.5 K/mm3 (4.0-10.0)
[2017-06-24] MEDS ORDERED: FUROSEMIDE 40 MG/4 ML INJECTABLE VIAL IVPB ONE (15:29)
--- NOTE | 2017-06-24 16:07 | PN ---
Progress Note, Physician History of Present Illness: continues to be intubated and sedated low bp started on pressors - Current Medication List Current Medications: Active Medications Albuterol Sulfate (Ventolin 0.083% Nebulizer Soln -) 1 amp NEB Q4H PRN PRN Reason: SHORT OF BREATH/WHEEZING Chlorhexidine Gluconate (Hibiclens For Decolonization -) 1 applic TP HS [facility] Clonazepam (Klonopin -) 0.5 mg GT TID [facility] Last Admin: 06/24/17 14:02 Dose: 0.5 mg Gabapentin (Neurontin -) 200 mg GT TID [facility] Last Admin: 06/24/17 14:02 Dose: 200 mg Sodium Chloride (Normal Saline -) 1,000 mls @ 100 mls/hr IV [facility] Last Admin: 06/23/17 19:54 Dose: 100 mls/hr Propofol (Diprivan -) 100 mls @ 1.715 mls/hr IVPB TITR [facility]; 5 MCG/KG/MIN PRN Reason: Protocol Last Titration: 06/24/17 07:30 Dose: 0 mcg/kg/min Clindamycin Phosphate (Cleocin 600 Mg Premix Ivpb -) 50 mls @ 100 mls/hr IVPB Q8H-IV [facility] Last Admin: 06/24/17 11:00 Dose: 100 mls/hr Dopamine HCl/Dextrose (Dopamine 400 Mg/D5w -) 250 mls @ 10.993 mls/hr IVPB TITR [facility]; 5 MCG/KG/MIN PRN Reason: Protocol Last Admin: 06/24/17 07:30 Dose: 10.993 mls/hr Lamotrigine (Lamictal -) 200 mg GT BID [facility] Last Admin: 06/24/17 11:00 Dose: 200 mg Levothyroxine Sodium (Synthroid -) 50 mcg GT DAILY@0700 [facility] Last Admin: 06/24/17 06:00 Dose: 50 mcg Loratadine (Claritin -) 10 mg GT DAILY [facility] Last Admin: 06/24/17 11:14 Dose: 10 mg Lorazepam (Ativan Injection -) 0.5 mg IVPUSH Q6H PRN PRN Reason: seizures Mupirocin (Bactroban Ointment (For Decolonization) -) 1 applic NS BID [facility] Stop: 06/29/17 21:59 Pantoprazole Sodium (Protonix 40mg Ivpb (Pre-Docked)) 40 mg IVPB DAILY [facility] Last Admin: 06/24/17 09:07 Dose: 40 mg Piperacillin Sod/Tazobactam Sod (Zosyn 3.375gm Ivpb (Pre-Docked)) 3.375 gm IVPB Q8H-IV [facility] PRN Reason: Protocol Last Admin: 06/24/17 09:06 Dose: 3.375 gm Potassium Phos/Sodium Phos (Phos-Nak Packet -) 1 packet PO BID [facility] Last Admin: 06/24/17 11:00 Dose: 1 packet Topiramate (Topamax -) 25 mg NR BID [facility] Last Admin: 06/24/17 11:14 Dose: 25 mg Valproate Sodium (Depacon Injection -) 375 mg IVPB BID [facility] Last Admin: 06/24/17 11:00 Dose: 375 mg - Objective Vital Signs: Vital Signs Temperature 97.2 F L 06/24/17 14:00 Pulse Rate 56 L 06/24/17 14:00 Respiratory Rate 15 06/24/17 14:10 Blood Pressure 113/50 06/24/17 14:00 O2 Sat by Pulse Oximetry (%) 94 L 06/24/17 10:00 Constitutional: Yes: Other Cardiovascular: Yes: Regular Rate and Rhythm Respiratory: Yes: Intubated, Mechanically Ventilated Gastrointestinal: Yes: Normal Bowel Sounds, Soft, Other (peg in place) Musculoskeletal: Yes: Other Extremities: Yes: Other Neurological: Yes: Other Labs: CBC, BMP 06/24/17 10:00 06/24/17 05:15 - ....Imaging Chest X-ray: Report Reviewed Assessment/Plan Problem List - Problems (1) Aspiration pneumonia Code(s): J69.0 - PNEUMONITIS DUE TO INHALATION OF FOOD AND VOMIT (2) Hypercapnia Code(s): R06.89 - OTHER ABNORMALITIES OF BREATHING (3) Seizure Code(s): R56.9 - UNSPECIFIED CONVULSIONS (4) Asthma Code(s): J45.909 - UNSPECIFIED ASTHMA, UNCOMPLICATED Qualifiers: Asthma severity: mild intermittent Asthma complication type: uncomplicated Qualified Code(s): J45.20 - Mild intermittent asthma, uncomplicated (5) GERD (gastroesophageal reflux disease) Code(s): K21.9 - GASTRO-ESOPHAGEAL REFLUX DISEASE WITHOUT ESOPHAGITIS (6) Cerebral palsy, quadriplegic Code(s): G80.8 - OTHER CEREBRAL PALSY (7) Hypothyroidism Code(s): E03.9 - HYPOTHYROIDISM, UNSPECIFIED (8) Mental retardation Code(s): F79 - UNSPECIFIED INTELLECTUAL DISABILITIES plan patient intubated and sedated continue abx await for all cx report continue as per icu rest as per the teams nutrition cc time 40 min
[2017-06-24] MEDS: PROPOFOL 100 ML IVPB SCH (17:18)
[2017-06-24] MEDS ORDERED: MIDAZOLAM HCL 2 MG/2 ML SINGLE DOSE VIAL IVPUSH ONE (19:44)
[2017-06-24] MEDS ORDERED: MIDAZOLAM HCL 2 MG/2 ML SINGLE DOSE VIAL ONE (19:47)
[2017-06-24] MEDS: CHLORHEXIDINE GLUCONATE 4% CLEANSER FOR DECOLONIZATION TP SCH (21:54)
[2017-06-24] MEDS: SODIUM CHLORIDE 1,000 ML IV SCH (21:55)
[2017-06-25] MEDS: LORazepam 2 MG/ML SDV VIAL IVPUSH PRN ×2 (00:09→08:09)
[2017-06-25] MEDS: CLINDAMYCIN 600MG PREMIX IVPB 50 ML IVPB SCH ×3 (01:04→17:01)
[2017-06-25] MEDS: PIPERACILLIN/TAZOB 3.375 GM/50 ML PRE-DOCKED IVPB SCH ×3 (01:05→17:00)
[2017-06-25] MEDS: GABAPENTIN 100 MG CAPSULE (FP) GT SCH ×3 (05:48→21:12)
[2017-06-25] MEDS: clonazePAM 0.5 MG TABLET GT SCH ×3 (05:48→21:12)
[2017-06-25 06:30] LABS: BASOPHIL 0.6 % (0-2.0); EOSINOPHIL 1.4 % (0-4.5); MCH 36.4 pg (25.7-33.7); MCHC 34.2 g/dl (32.0-35.9); MEAN CELL VOLUME 106.5 fl (80-96); MEAN PLT VOLUME 8.4 fl (7.5-11.1); NEUTROPHILS 66.9 % (42.8-82.8); PLATELET COUNT 166 K/MM3 (134-434); RDW 16.9 % (11.9-15.9); WHITE BLOOD COUNT 6.9 K/mm3 (4.0-10.0)
[2017-06-25] MEDS: LEVOTHYROXINE NA 50 MCG TABLET (FP) GT SCH (06:42)
[2017-06-25 06:57] LABS: ALBUMIN 1.8 g/dl (3.4-5.0); ANION GAP 8 (8-16); CALCIUM 8.5 mg/dL (8.5-10.1); CO2 27 mmol/L (21-32); GLUCOSE,RANDOM 103 mg/dL (74-106)
[2017-06-25 07:01] LABS: ALK PHOS 304 U/L (45-117); BILIRUBIN,TOTAL 0.5 mg/dL (0.2-1.0); CREATININE 0.7 mg/dL (0.7-1.3); PHOSPHOROUS 5.2 mg/dL (2.5-4.9); SGOT/AST 34 U/L (15-37); SGPT/ALT 27 U/L (12-78); TOT PROT 6.3 g/dl (6.4-8.2)
[2017-06-25] MEDS: DOPAMINE 400 MG/D5W - 250 ML IVPB SCH (07:45)
[2017-06-25] MEDS ORDERED: PT OWN MED DRAWER 7, Y5N ONE ×5 (09:47→21:32)
[2017-06-25] MEDS: LORATADINE 10 MG TABLET GT SCH (09:49)
[2017-06-25] MEDS: MUPIROCIN 2% TOPICAL OINTMENT FOR DECOLONIZATION NS SCH ×2 (09:49→21:13)
[2017-06-25] MEDS: VALPROATE SODIUM 500 MG/5 ML VIAL IVPB SCH ×2 (09:51→21:13)
[2017-06-25] MEDS: NAPH,MB-DB/K PH,MBDB POWDER PACKET PO SCH (09:52)
[2017-06-25] MEDS: PANTOPRAZOLE SODIUM 40 MG/100 ML PRE-DOCKED IVPB SCH (09:52)
--- NOTE | 2017-06-25 10:05 | PN ---
Progress Note (short form) - Note Progress Note: Neurology History of Present Illness 45-year-old male history of asthma, profound mental retardation, cerebral palsy , functional quadriplegia, recurrent epistaxis, seizure disorder, history of Katherine fundoplication (stomach wrapped to prevent reflux), s/p PEG, recurrent pneumonia, respiratory failure, oxygen dependent, sent from [facility] for upper respiratory congestion. CXR w/ progressive R infiltrate, effusion and congestion. Patient sedated, intubated and on mechanical ventilation in ICU care. There is concern for possible aspiration PNA. Minimally responsive and does have underlying seizure disorder but no witnessed events at alf. Patient on IV Abx. ID following. Can continue seizure home medications. Ativan PRN can also be used but no motor abnormal activity noted on exam or witnessed. No significant improvement overnight. Remains in ICU with close monitoring. Spoke to nurse and he has been having episodes of agitation which has been relieved by Ativan, 0.5mg. Respiratory distress is a concern during these episodes and not overbreathing vent at this time. No seizure events provoked. Active Medications Albuterol Sulfate (Ventolin 0.083% Nebulizer Soln -) 1 amp NEB Q4H PRN PRN Reason: SHORT OF BREATH/WHEEZING Chlorhexidine Gluconate (Hibiclens For Decolonization -) 1 applic TP HS [facility] Last Admin: 06/24/17 21:54 Dose: 1 applic Clonazepam (Klonopin -) 0.5 mg GT TID [facility] Last Admin: 06/25/17 05:48 Dose: 0.5 mg Gabapentin (Neurontin -) 200 mg GT TID [facility] Last Admin: 06/25/17 05:48 Dose: 200 mg Sodium Chloride (Normal Saline -) 1,000 mls @ 100 mls/hr IV [facility] Last Admin: 06/24/17 21:55 Dose: Not Given Clindamycin Phosphate (Cleocin 600 Mg Premix Ivpb -) 50 mls @ 100 mls/hr IVPB Q8H-IV [facility] Last Admin: 06/25/17 09:50 Dose: 100 mls/hr Dopamine HCl/Dextrose (Dopamine 400 Mg/D5w -) 250 mls @ 10.993 mls/hr IVPB TITR [facility]; 5 MCG/KG/MIN PRN Reason: Protocol Last Admin: 06/25/17 07:45 Dose: Not Given Lamotrigine (Lamictal -) 200 mg GT BID [facility] Last Admin: 06/24/17 21:54 Dose: 200 mg Levothyroxine Sodium (Synthroid -) 50 mcg GT DAILY@0700 [facility] Last Admin: 06/25/17 06:42 Dose: 50 mcg Loratadine (Claritin -) 10 mg GT DAILY [facility] Last Admin: 06/25/17 09:49 Dose: 10 mg Lorazepam (Ativan Injection -) 0.5 mg IVPUSH Q6H PRN PRN Reason: seizures Last Admin: 06/25/17 08:09 Dose: 0.5 mg Mupirocin (Bactroban Ointment (For Decolonization) -) 1 applic NS BID [facility] Stop: 06/29/17 21:59 Last Admin: 06/25/17 09:49 Dose: 1 applic Pantoprazole Sodium (Protonix 40mg Ivpb (Pre-Docked)) 40 mg IVPB DAILY [facility] Last Admin: 06/25/17 09:52 Dose: 40 mg Piperacillin Sod/Tazobactam Sod (Zosyn 3.375gm Ivpb (Pre-Docked)) 3.375 gm IVPB Q8H-IV [facility] PRN Reason: Protocol Last Admin: 06/25/17 09:52 Dose: 3.375 gm Potassium Phos/Sodium Phos (Phos-Nak Packet -) 1 packet PO BID [facility] Last Admin: 06/25/17 09:52 Dose: 1 packet Topiramate (Topamax -) 25 mg NR BID [facility] Last Admin: 06/24/17 21:54 Dose: 25 mg Valproate Sodium (Depacon Injection -) 375 mg IVPB BID [facility] Last Admin: 06/25/17 09:51 Dose: 375 mg *Physical Exam Vital Signs Temperature 97.7 F 06/25/17 08:00 Pulse Rate 53 L 06/25/17 08:00 Respiratory Rate 15 06/25/17 08:00 Blood Pressure 122/56 06/25/17 08:00 O2 Sat by Pulse Oximetry (%) 100 06/25/17 08:00 General Appearance: Yes: Appropriately Dressed, not following commands, intubated on mechanical ventilation HEENT: positive: Other (mostly coagulated blood to tongue/teeth, possibly small tongue lac) Respiratory/Chest: positive: Rhonchi, Cardiovascular: positive: S1, S2 Gastrointestinal/Abdominal: positive: Soft. negative: Mass Integumentary: positive: Dry, Warm Neuro: Pupil responsive, not following commands, responds to pain and tactile stimulation, no apparent CN deficits, no abnormal motor activity, not participating in confrontation testing CBCD WBC 6.9 K/mm3 (4.0-10.0) 06/25/17 05:20 RBC 2.57 M/mm3 (4.00-5.60) L 06/25/17 05:20 Hgb 9.4 GM/dL (11.7-16.9) L 06/25/17 05:20 Hct 27.4 % (35.4-49) L 06/25/17 05:20 MCV 106.5 fl (80-96) H 06/25/17 05:20 MCHC 34.2 g/dl (32.0-35.9) 06/25/17 05:20 RDW 16.9 % (11.9-15.9) H 06/25/17 05:20 Plt Count 166 K/MM3 (134-434) D 06/25/17 05:20 MPV 8.4 fl (7.5-11.1) 06/25/17 05:20 CMP Sodium 142 mmol/L (136-145) 06/25/17 05:20 Potassium 3.4 mmol/L (3.5-5.1) L 06/25/17 05:20 Chloride 107 mmol/L (98-107) 06/25/17 05:20 Carbon Dioxide 27 mmol/L (21-32) 06/25/17 05:20 Anion Gap 8 (8-16) 06/25/17 05:20 BUN 24 mg/dL (7-18) H D 06/25/17 05:20 Creatinine 0.7 mg/dL (0.7-1.3) 06/25/17 05:20 Creat Clearance w eGFR > 60 (>60) 06/25/17 05:20 Calcium 8.5 mg/dL (8.5-10.1) 06/25/17 05:20 Total Bilirubin 0.5 mg/dL (0.2-1.0) 06/25/17 05:20 AST 34 U/L (15-37) 06/25/17 05:20 ALT 27 U/L (12-78) 06/25/17 05:20 Alkaline Phosphatase 304 U/L (45-117) H D 06/25/17 05:20 Total Protein 6.3 g/dl (6.4-8.2) L 06/25/17 05:20 Albumin 1.8 g/dl (3.4-5.0) L 06/25/17 05:20 Medical Decision Making 45-year-old male history of asthma, profound mental retardation, cerebral palsy , functional quadriplegia, recurrent epistaxis, seizure disorder, history of Kathreine fundoplication (stomach wrapped to prevent reflux), s/p PEG, recurrent pneumonia, respiratory failure, oxygen dependent, sent from [facility] for upper respiratory congestion. Patient sedated, intubated and on mechanical ventilation in ICU care. There is concern for possible aspiration PNA. CXR w/ progressive R infiltrate, effusion and congestion. Continue ICU monitoring. Blood support as required. Minimally responsive and does have underlying seizure disorder but no witnessed events at alf. Not over breathing vent, remains on mechanical ventilation, weaning when able. Patient on IV Abx. ID following. Can continue seizure medications, Lamictal, Topamax, Valproate. Ativan PRN can also be used at low dose for aggitation or if seizure occurs but no motor abnormal activity noted on exam or witnessed. Critical care time 35 minutes.
--- NOTE | 2017-06-25 10:45 | PN ---
Teaching Attending Note Name of Resident: Sunny Banda ATTENDING PHYSICIAN STATEMENT I saw and evaluated the patient. I reviewed the resident's note and discussed the case with the resident. I agree with the resident's findings and plan as documented. SUBJECTIVE: Patient seen and examined in the ICU. Remains intubated and sedated. Temperature is improved. Remains on Dopamine for hemodynamic support. AC mode of vent. CXR : Some mild improvement in bilateral airspace disease Intake & Output 06/22/17 06/23/17 06/24/17 06/25/17 23:59 23:59 23:59 23:59 Intake Total 150 1218.5 4234.7 1304 Output Total 1000 1800 200 Balance 150 218.5 2434.7 1104 Weight 140 lb 0.002 oz 126 lb 1 oz 129 lb 4 oz 129 lb Last Vital Signs Temp Pulse Resp BP Pulse Ox 97.7 F 57 L 23 122/56 95 06/25/17 08:00 06/25/17 10:35 06/25/17 10:00 06/25/17 08:00 06/25/17 10:35 Active Medications Albuterol Sulfate (Ventolin 0.083% Nebulizer Soln -) 1 amp NEB Q4H PRN PRN Reason: SHORT OF BREATH/WHEEZING Chlorhexidine Gluconate (Hibiclens For Decolonization -) 1 applic TP HS [facility] Last Admin: 06/24/17 21:54 Dose: 1 applic Clonazepam (Klonopin -) 0.5 mg GT TID [facility] Last Admin: 06/25/17 05:48 Dose: 0.5 mg Gabapentin (Neurontin -) 200 mg GT TID [facility] Last Admin: 06/25/17 05:48 Dose: 200 mg Sodium Chloride (Normal Saline -) 1,000 mls @ 100 mls/hr IV [facility] Last Admin: 06/24/17 21:55 Dose: Not Given Clindamycin Phosphate (Cleocin 600 Mg Premix Ivpb -) 50 mls @ 100 mls/hr IVPB Q8H-IV [facility] Last Admin: 06/25/17 09:50 Dose: 100 mls/hr Dopamine HCl/Dextrose (Dopamine 400 Mg/D5w -) 250 mls @ 10.993 mls/hr IVPB TITR [facility]; 5 MCG/KG/MIN PRN Reason: Protocol Last Admin: 06/25/17 07:45 Dose: Not Given Lamotrigine (Lamictal -) 200 mg GT BID [facility] Last Admin: 06/24/17 21:54 Dose: 200 mg Levothyroxine Sodium (Synthroid -) 50 mcg GT DAILY@0700 [facility] Last Admin: 06/25/17 06:42 Dose: 50 mcg Loratadine (Claritin -) 10 mg GT DAILY [facility] Last Admin: 06/25/17 09:49 Dose: 10 mg Lorazepam (Ativan Injection -) 0.5 mg IVPUSH Q6H PRN PRN Reason: seizures Last Admin: 06/25/17 08:09 Dose: 0.5 mg Mupirocin (Bactroban Ointment (For Decolonization) -) 1 applic NS BID [facility] Stop: 06/29/17 21:59 Last Admin: 06/25/17 09:49 Dose: 1 applic Pantoprazole Sodium (Protonix 40mg Ivpb (Pre-Docked)) 40 mg IVPB DAILY [facility] Last Admin: 06/25/17 09:52 Dose: 40 mg Piperacillin Sod/Tazobactam Sod (Zosyn 3.375gm Ivpb (Pre-Docked)) 3.375 gm IVPB Q8H-IV [facility] PRN Reason: Protocol Last Admin: 06/25/17 09:52 Dose: 3.375 gm Potassium Phos/Sodium Phos (Phos-Nak Packet -) 1 packet PO BID [facility] Last Admin: 06/25/17 09:52 Dose: 1 packet Topiramate (Topamax -) 25 mg NR BID [facility] Last Admin: 06/24/17 21:54 Dose: 25 mg Valproate Sodium (Depacon Injection -) 375 mg IVPB BID [facility] Last Admin: 06/25/17 09:51 Dose: 375 mg General: Intubated and sedated Cardiac: S1S2 Respiratory: Intubated and sedated, bilateral coarse rhonchi, no wheeze Gastrointestinal: Yes: WNL, (+) BS, Soft, PEG ...Rectal Exam: Yes: Deferred Renal/: Yes: WNL Breast(s): Yes: WNL Musculoskeletal: Yes: WNL Extremities: Yes: WNL Edema: LUE: Trace, RUE: Trace, LLE: Trace, RLE: Trace Peripheral Pulses WNL: Yes Neurological: Yes: Unresponsive ...Motor Strength: WNL Psychiatric: Yes: WNL Labs: Active Medications Albuterol Sulfate (Ventolin 0.083% Nebulizer Soln -) 1 amp NEB Q4H PRN PRN Reason: SHORT OF BREATH/WHEEZING Chlorhexidine Gluconate (Hibiclens For Decolonization -) 1 applic TP HS [facility] Last Admin: 06/24/17 21:54 Dose: 1 applic Clonazepam (Klonopin -) 0.5 mg GT TID [facility] Last Admin: 06/25/17 05:48 Dose: 0.5 mg Gabapentin (Neurontin -) 200 mg GT TID [facility] Last Admin: 06/25/17 05:48 Dose: 200 mg Sodium Chloride (Normal Saline -) 1,000 mls @ 100 mls/hr IV ASDIR [facility] Last Admin: 06/24/17 21:55 Dose: Not Given Clindamycin Phosphate (Cleocin 600 Mg Premix Ivpb -) 50 mls @ 100 mls/hr IVPB Q8H-IV [facility] Last Admin: 06/25/17 09:50 Dose: 100 mls/hr Dopamine HCl/Dextrose (Dopamine 400 Mg/D5w -) 250 mls @ 10.993 mls/hr IVPB TITR [facility]; 5 MCG/KG/MIN PRN Reason: Protocol Last Admin: 06/25/17 07:45 Dose: Not Given Lamotrigine (Lamictal -) 200 mg GT BID [facility] Last Admin: 06/24/17 21:54 Dose: 200 mg Levothyroxine Sodium (Synthroid -) 50 mcg GT DAILY@0700 [facility] Last Admin: 06/25/17 06:42 Dose: 50 mcg Loratadine (Claritin -) 10 mg GT DAILY [facility] Last Admin: 06/25/17 09:49 Dose: 10 mg Lorazepam (Ativan Injection -) 0.5 mg IVPUSH Q6H PRN PRN Reason: seizures Last Admin: 06/25/17 08:09 Dose: 0.5 mg Mupirocin (Bactroban Ointment (For Decolonization) -) 1 applic NS BID [facility] Stop: 06/29/17 21:59 Last Admin: 06/25/17 09:49 Dose: 1 applic Pantoprazole Sodium (Protonix 40mg Ivpb (Pre-Docked)) 40 mg IVPB DAILY [facility] Last Admin: 06/25/17 09:52 Dose: 40 mg Piperacillin Sod/Tazobactam Sod (Zosyn 3.375gm Ivpb (Pre-Docked)) 3.375 gm IVPB Q8H-IV [facility] PRN Reason: Protocol Last Admin: 06/25/17 09:52 Dose: 3.375 gm Potassium Phos/Sodium Phos (Phos-Nak Packet -) 1 packet PO BID [facility] Last Admin: 06/25/17 09:52 Dose: 1 packet Topiramate (Topamax -) 25 mg NR BID [facility] Last Admin: 06/24/17 21:54 Dose: 25 mg Valproate Sodium (Depacon Injection -) 375 mg IVPB BID [facility] Last Admin: 06/25/17 09:51 Dose: 375 mg Problem List - Problems (1) Aspiration pneumonia Code(s): J69.0 - PNEUMONITIS DUE TO INHALATION OF FOOD AND VOMIT (2) Hypercapnia Code(s): R06.89 - OTHER ABNORMALITIES OF BREATHING (3) Seizure Code(s): R56.9 - UNSPECIFIED CONVULSIONS (4) Asthma Code(s): J45.909 - UNSPECIFIED ASTHMA, UNCOMPLICATED Qualifiers: Asthma severity: mild intermittent Asthma complication type: uncomplicated Qualified Code(s): J45.20 - Mild intermittent asthma, uncomplicated (5) GERD (gastroesophageal reflux disease) Code(s): K21.9 - GASTRO-ESOPHAGEAL REFLUX DISEASE WITHOUT ESOPHAGITIS (6) Cerebral palsy, quadriplegic Code(s): G80.8 - OTHER CEREBRAL PALSY (7) Hypothyroidism Code(s): E03.9 - HYPOTHYROIDISM, UNSPECIFIED (8) Mental retardation Code(s): F79 - UNSPECIFIED INTELLECTUAL DISABILITIES Assessment/Plan Acute Hypercapneic/Hypoxic Respiratory Failure CP Profound MR Seizure D/O Functional quadriplegia Asthma Recurrent PNA Atelectasis Hypothermia -> (?) Autonomic dysfunction PLAN: -Wean Dopamine drip -SBTs as tolerated -BD TX -Daily Sedation vacation -ABX coverage -IVF -Palliative evaluation for GOC ongoing (requested by mother) -VTE prophylaxis Dr Rivas CCTime 35" The care of this patient involved high complexity decision making to prevent further life threatening deterioration of the patient's condition and/or to evaluate & treat vital organ system(s) failure or risk of failure.
--- NOTE | 2017-06-25 11:16 | PN ---
Progress Note, Physician History of Present Illness: Patient seen and examined at bedside. Pt is intubated and off sedation. Patient is in no acute distress. - Current Medication List Current Medications: Active Medications Albuterol Sulfate (Ventolin 0.083% Nebulizer Soln -) 1 amp NEB Q4H PRN PRN Reason: SHORT OF BREATH/WHEEZING Chlorhexidine Gluconate (Hibiclens For Decolonization -) 1 applic TP HS [facility] Last Admin: 06/24/17 21:54 Dose: 1 applic Clonazepam (Klonopin -) 0.5 mg GT TID [facility] Last Admin: 06/25/17 05:48 Dose: 0.5 mg Gabapentin (Neurontin -) 200 mg GT TID [facility] Last Admin: 06/25/17 05:48 Dose: 200 mg Sodium Chloride (Normal Saline -) 1,000 mls @ 100 mls/hr IV [facility]IR [facility] Last Admin: 06/24/17 21:55 Dose: Not Given Clindamycin Phosphate (Cleocin 600 Mg Premix Ivpb -) 50 mls @ 100 mls/hr IVPB Q8H-IV [facility] Last Admin: 06/25/17 09:50 Dose: 100 mls/hr Dopamine HCl/Dextrose (Dopamine 400 Mg/D5w -) 250 mls @ 10.993 mls/hr IVPB TITR [facility]; 5 MCG/KG/MIN PRN Reason: Protocol Last Admin: 06/25/17 07:45 Dose: Not Given Lamotrigine (Lamictal -) 200 mg GT BID [facility] Last Admin: 06/24/17 21:54 Dose: 200 mg Levothyroxine Sodium (Synthroid -) 50 mcg GT DAILY@0700 [facility] Last Admin: 06/25/17 06:42 Dose: 50 mcg Loratadine (Claritin -) 10 mg GT DAILY [facility] Last Admin: 06/25/17 09:49 Dose: 10 mg Lorazepam (Ativan Injection -) 0.5 mg IVPUSH Q6H PRN PRN Reason: seizures Last Admin: 06/25/17 08:09 Dose: 0.5 mg Mupirocin (Bactroban Ointment (For Decolonization) -) 1 applic NS BID [facility] Stop: 06/29/17 21:59 Last Admin: 06/25/17 09:49 Dose: 1 applic Pantoprazole Sodium (Protonix 40mg Ivpb (Pre-Docked)) 40 mg IVPB DAILY [facility] Last Admin: 06/25/17 09:52 Dose: 40 mg Piperacillin Sod/Tazobactam Sod (Zosyn 3.375gm Ivpb (Pre-Docked)) 3.375 gm IVPB Q8H-IV [facility] PRN Reason: Protocol Last Admin: 06/25/17 09:52 Dose: 3.375 gm Potassium Phos/Sodium Phos (Phos-Nak Packet -) 1 packet PO BID [facility] Last Admin: 06/25/17 09:52 Dose: 1 packet Topiramate (Topamax -) 25 mg NR BID [facility] Last Admin: 06/24/17 21:54 Dose: 25 mg Valproate Sodium (Depacon Injection -) 375 mg IVPB BID [facility] Last Admin: 06/25/17 09:51 Dose: 375 mg - Objective Vital Signs: Vital Signs Temperature 97.7 F 06/25/17 10:00 Pulse Rate 57 L 06/25/17 10:35 Respiratory Rate 15 06/25/17 10:00 Blood Pressure 122/57 06/25/17 10:00 O2 Sat by Pulse Oximetry (%) 95 06/25/17 10:35 Constitutional: Yes: No Distress Eyes: Yes: Conjunctiva Clear HENT: Yes: Atraumatic Neck: Yes: Supple, Trachea Midline Cardiovascular: Yes: Bradycardia. No: Pulse Irregular, Bruit, JVD Respiratory: Yes: Other (Course breath sounds, pt breathing on vent) Gastrointestinal: Yes: Normal Bowel Sounds, Soft Extremities: Yes: Deformity Edema: No Peripheral Pulses WNL: Yes Integumentary: Yes: WNL Neurological: No: Alert, Oriented Psychiatric: No: Alert, Oriented Labs: CBC, BMP 06/25/17 05:20 06/25/17 05:20 - ....Imaging Chest X-ray: Image Reviewed Problem List - Problems (1) Pneumonia Code(s): J18.9 - PNEUMONIA, UNSPECIFIED ORGANISM Qualifiers: Pneumonia type: due to unspecified organism Laterality: right Lung location: unspecified part of lung Qualified Code(s): J18.9 - Pneumonia, unspecified organism (2) Seizure Code(s): R56.9 - UNSPECIFIED CONVULSIONS (3) Asthma Code(s): J45.909 - UNSPECIFIED ASTHMA, UNCOMPLICATED Qualifiers: Asthma severity: mild intermittent Asthma complication type: uncomplicated Qualified Code(s): J45.20 - Mild intermittent asthma, uncomplicated (4) Cerebral palsy, quadriplegic Code(s): G80.8 - OTHER CEREBRAL PALSY (5) Hypothermia Code(s): T68.XXXA - HYPOTHERMIA, INITIAL ENCOUNTER (6) Hypothyroidism Code(s): E03.9 - HYPOTHYROIDISM, UNSPECIFIED (7) Mental retardation Code(s): F79 - UNSPECIFIED INTELLECTUAL DISABILITIES Assessment/Plan 46 year old male pmh cerebral palsy, developmental disability, seizure disorder , asthma, and O2 dependent respiratory failure arrived from halfway for upper respiratory distress and congestion. Pt intubated and monitored in ICU. Neuro: -patient is intubated and off sedation -HR improved over yesterday after d/c-ing profol -monitor cardiac status -d/c sedation QD for ~1 hour -continue topiramate, valproate, and lamotrigine for seizures -continue clonazepam and gabapentin -pt is normothermic today -off heating blanket Respiratory: -patient w/ congestion likely 2/2 aspiration pneumonia or mucous plug, cxr shows mild improvement in aeration compared to prior -continue clindamycin 600mg -continue zosyn -blood cultures negative -patient remains intubated -am CXR Cardiovascular: patient was bradycardic this morning with HR 38-40 and a MAP of ~55 -begin 5mg dopamine infusion for BP support -wean off of dopamine -40 IV lasix if stable off dopamine for several hours FEN: -continue NS @ 100 -repeat lytes in am Prophylaxsis: -SCDs -continue protonix 40mg IV daily Dispo: -continue to monitor in ICU -f/u with palliative care
[2017-06-25] MEDS: TOPIRAMATE 25 MG TABLET (FP) NR SCH ×2 (11:24→21:31)
[2017-06-25] MEDS: lamoTRIgine 100 MG TABLET (FP) GT SCH ×2 (11:24→21:31)
[2017-06-25] MEDS: SODIUM CHLORIDE 1,000 ML IV SCH ×2 (12:21→19:00)
--- NOTE | 2017-06-25 15:25 | PN ---
Progress Note (short form) - Note Progress Note: Subjective: The patient remains intubated and sedated Remains on dopamine AC mode on vent Ethics consult pending Current Medications Generic Name Dose Route Start Last Admin Trade Name Freq PRN Reason Stop Dose Admin Albuterol Sulfate 1 amp 06/22/17 20:41 Ventolin 0.083% Nebulizer Soln - NEB Q4H PRN SHORT OF BREATH/WHEEZING Chlorhexidine Gluconate 1 applic 06/24/17 22:00 06/24/17 21:54 Hibiclens For Decolonization - TP 1 applic HS GILL Administration Clonazepam 0.5 mg 06/22/17 22:00 06/25/17 15:00 Klonopin - GT 0.5 mg TID GILL Administration Gabapentin 200 mg 06/22/17 22:00 06/25/17 15:00 Neurontin - GT 200 mg TID [facility] Administration Sodium Chloride 1,000 mls @ 100 mls/hr 06/22/17 19:00 06/25/17 12:21 Normal Saline - IV 100 mls/hr ASDIR G[facility] Administration Clindamycin Phosphate 50 mls @ 100 mls/hr 06/24/17 10:00 06/25/17 09:50 Cleocin 600 Mg Premix Ivpb - IVPB 100 mls/hr Q8H-IV [facility] Administration Dopamine HCl/Dextrose 250 mls @ 10.993 mls/hr 06/24/17 07:45 06/25/17 07:45 Dopamine 400 Mg/D5w - IVPB Not Given TITR GILL Protocol 5 MCG/KG/MIN Lamotrigine 200 mg 06/22/17 22:00 06/25/17 11:24 Lamictal - GT 200 mg BID GILL Administration Levothyroxine Sodium 50 mcg 06/23/17 07:00 06/25/17 06:42 Synthroid - GT 50 mcg DAILY@0700 [facility] Administration Loratadine 10 mg 06/23/17 10:00 06/25/17 09:49 Claritin - GT 10 mg DAILY [facility] Administration Lorazepam 0.5 mg 06/22/17 16:25 06/25/17 08:09 Ativan Injection - IVPUSH 0.5 mg Q6H PRN Administration seizures Mupirocin 1 applic 06/24/17 22:00 06/25/17 09:49 Bactroban Ointment (For Decolonization) - NS 08/20/17 21:59 1 applic BID [facility] Administration Pantoprazole Sodium 40 mg 06/23/17 10:00 06/25/17 09:52 Protonix 40mg Ivpb (Pre-Docked) IVPB 40 mg DAILY [facility] Administration Piperacillin Sod/Tazobactam Sod 3.375 gm 06/22/17 18:00 06/25/17 09:52 Zosyn 3.375gm Ivpb (Pre-Docked) IVPB 3.375 gm Q8H-IV G[facility] Administration Protocol Potassium Phos/Sodium Phos 1 packet 06/23/17 22:00 06/25/17 09:52 Phos-Nak Packet - PO 1 packet BID [facility] Administration Topiramate 25 mg 06/22/17 22:00 06/25/17 11:24 Topamax - NR 25 mg BID [facility] Administration Valproate Sodium 375 mg 06/22/17 22:00 06/25/17 09:51 Depacon Injection - IVPB 375 mg BID [facility] Administration Objective: Vital Signs Period Temp Pulse Resp BP Sys/Celestin Pulse Ox Last 24 Hr 97.2 F-97.7 F 53-67 15-23 97-122/42-57 94-100 Physical Exam: General: Intubated, sedated Lungs: Coarse b/l rhonchi Heart: RRR, S1S2 Abd: PEG in place. Normoactive bowel sounds Ext: Warm, well-perfused Neuro: sedated CBCD WBC 6.9 K/mm3 (4.0-10.0) 06/25/17 05:20 RBC 2.57 M/mm3 (4.00-5.60) L 06/25/17 05:20 Hgb 9.4 GM/dL (11.7-16.9) L 06/25/17 05:20 Hct 27.4 % (35.4-49) L 06/25/17 05:20 MCV 106.5 fl (80-96) H 06/25/17 05:20 MCHC 34.2 g/dl (32.0-35.9) 06/25/17 05:20 RDW 16.9 % (11.9-15.9) H 06/25/17 05:20 Plt Count 166 K/MM3 (134-434) D 06/25/17 05:20 MPV 8.4 fl (7.5-11.1) 06/25/17 05:20 CMP Sodium 142 mmol/L (136-145) 06/25/17 05:20 Potassium 3.4 mmol/L (3.5-5.1) L 06/25/17 05:20 Chloride 107 mmol/L (98-107) 06/25/17 05:20 Carbon Dioxide 27 mmol/L (21-32) 06/25/17 05:20 Anion Gap 8 (8-16) 06/25/17 05:20 BUN 24 mg/dL (7-18) H D 06/25/17 05:20 Creatinine 0.7 mg/dL (0.7-1.3) 06/25/17 05:20 Creat Clearance w eGFR > 60 (>60) 06/25/17 05:20 Random Glucose 103 mg/dL (74-106) 06/25/17 05:20 Calcium 8.5 mg/dL (8.5-10.1) 06/25/17 05:20 Total Bilirubin 0.5 mg/dL (0.2-1.0) 06/25/17 05:20 AST 34 U/L (15-37) 06/25/17 05:20 ALT 27 U/L (12-78) 06/25/17 05:20 Alkaline Phosphatase 304 U/L (45-117) H D 06/25/17 05:20 Total Protein 6.3 g/dl (6.4-8.2) L 06/25/17 05:20 Albumin 1.8 g/dl (3.4-5.0) L 06/25/17 05:20 CARDIAC ENZYMES Creatine Kinase 85 IU/L (39-308) 06/22/17 18:35 Troponin I < 0.02 ng/ml (0.00-0.05) 06/22/17 18:35 Microbiology 06/24/17 12:30 Sputum - Endotrachea Suction/Ventilator Gram Stain - Final 06/24/17 12:30 Sputum - Endotrachea Suction/Ventilator Sputum Culture - Preliminary Presumptive Mrsa (Pbp2a Pos) Presumptive Ps Aeruginosa 06/23/17 23:00 Urine - Urine - Catheterized Urine Culture - Preliminary Lactose Fermenting Neg Bacilli 06/22/17 17:00 Blood - Peripheral Venous Blood Culture - Preliminary NO GROWTH OBTAINED AFTER 48 HOURS, INCUBATION TO CONTINUE FOR 3 DAYS. 06/22/17 17:00 Blood - Peripheral Venous Blood Culture - Preliminary NO GROWTH OBTAINED AFTER 48 HOURS, INCUBATION TO CONTINUE FOR 3 DAYS. Assessment: This is a 46 year old male with PMHx of asthma, profound mental retardation, cerebral palsy, functional quadriplegia, recurrent epistaxis, seizure disorder, history of Katherine fundoplication (stomach wrapped to prevent reflux), s/p PEG, recurrent pneumonia, respiratory failure, oxygen dependent, sent from [facility] for upper respiratory congestion. Plan: 1) Pulmonary: Acute hypoxic, hypercapneic respiratory failure - Remains intubated - Daily sedation vacation - Albuterol nebulizer q4h prn 2) ID: Septic shock 2/2 pneumonia - Remains on pressors - Continue Zosyn (06/22- ) - Continue Clindamycin (06/24- ) - F/u ID consult 3) Neuro: Seizure disorder - Continue Valproate - Continue Lamictal - Continue Topamax - Ativan prn - Appreciate neurology consult 4) Endocrine: hypothyroidism - Continue synthroid 5) Hematology: Chronic Anemia - Continue to trend 6) F/E/N: - Tube feeds - Monitor electrolytes 7) Prophylaxis: - SCDs bilaterally - Patient has history of bleeding with chemical dvt prophylaxis, will hold for now - Functional quadraplegia 8) Dispo: - Requires continued ICU care CODE STATUS: FULL CODE Visit type - Emergency Visit Emergency Visit: Yes ED Registration Date: 06/22/17 Care time: The patient presented to the Emergency Department on the above date and was hospitalized for further evaluation of their emergent condition. - New Patient This patient is new to me today: Yes Date on this admission: 06/25/17 - Critical Care Critical Care patient: Yes Total Critical Care Time (in minutes): 35 Critical Care Statement: The care of this patient involved high complexity decision making to prevent further life threatening deterioration of the patient 's condition and/or to evaluate & treat vital organ system(s) failure or risk of failure.
--- NOTE | 2017-06-25 17:31 | PN ---
Progress Note, Physician History of Present Illness: continues to be intubated and sedated still needing dopamine has remained afebrile - Current Medication List Current Medications: Active Medications Albuterol Sulfate (Ventolin 0.083% Nebulizer Soln -) 1 amp NEB Q4H PRN PRN Reason: SHORT OF BREATH/WHEEZING Chlorhexidine Gluconate (Hibiclens For Decolonization -) 1 applic TP HS [facility] Last Admin: 06/24/17 21:54 Dose: 1 applic Clonazepam (Klonopin -) 0.5 mg GT TID [facility] Last Admin: 06/25/17 15:00 Dose: 0.5 mg Gabapentin (Neurontin -) 200 mg GT TID [facility] Last Admin: 06/25/17 15:00 Dose: 200 mg Sodium Chloride (Normal Saline -) 1,000 mls @ 100 mls/hr IV ASDIR [facility] Last Admin: 06/25/17 12:21 Dose: 100 mls/hr Clindamycin Phosphate (Cleocin 600 Mg Premix Ivpb -) 50 mls @ 100 mls/hr IVPB Q8H-IV [facility] Last Admin: 06/25/17 17:01 Dose: 100 mls/hr Dopamine HCl/Dextrose (Dopamine 400 Mg/D5w -) 250 mls @ 10.993 mls/hr IVPB TITR GLIL; 5 MCG/KG/MIN PRN Reason: Protocol Last Admin: 06/25/17 07:45 Dose: Not Given Lamotrigine (Lamictal -) 200 mg GT BID [facility] Last Admin: 06/25/17 11:24 Dose: 200 mg Levothyroxine Sodium (Synthroid -) 50 mcg GT DAILY@0700 [facility] Last Admin: 06/25/17 06:42 Dose: 50 mcg Loratadine (Claritin -) 10 mg GT DAILY [facility] Last Admin: 06/25/17 09:49 Dose: 10 mg Mupirocin (Bactroban Ointment (For Decolonization) -) 1 applic NS BID [facility] Stop: 06/29/17 21:59 Last Admin: 06/25/17 09:49 Dose: 1 applic Pantoprazole Sodium (Protonix 40mg Ivpb (Pre-Docked)) 40 mg IVPB DAILY [facility] Last Admin: 06/25/17 09:52 Dose: 40 mg Piperacillin Sod/Tazobactam Sod (Zosyn 3.375gm Ivpb (Pre-Docked)) 3.375 gm IVPB Q8H-IV [facility]ILL PRN Reason: Protocol Last Admin: 06/25/17 17:00 Dose: 3.375 gm Potassium Phos/Sodium Phos (Phos-Nak Packet -) 1 packet PO BID [facility] Last Admin: 06/25/17 09:52 Dose: 1 packet Topiramate (Topamax -) 25 mg NR BID [facility] Last Admin: 06/25/17 11:24 Dose: 25 mg Valproate Sodium (Depacon Injection -) 375 mg IVPB BID [facility] Last Admin: 06/25/17 09:51 Dose: 375 mg - Objective Vital Signs: Vital Signs Temperature 98.1 F 06/25/17 16:00 Pulse Rate 60 06/25/17 16:00 Respiratory Rate 15 06/25/17 17:01 Blood Pressure 80/47 06/25/17 16:00 O2 Sat by Pulse Oximetry (%) 95 06/25/17 10:35 Constitutional: Yes: Other Eyes: Yes: Conjunctiva Clear HENT: Yes: Atraumatic Cardiovascular: Yes: S1, S2 Respiratory: Yes: Intubated, Mechanically Ventilated Gastrointestinal: Yes: Normal Bowel Sounds, Soft, Other (peg in place) Musculoskeletal: Yes: Other Extremities: Yes: Other Neurological: Yes: Other Labs: CBC, BMP 06/25/17 05:20 06/25/17 05:20 Assessment/Plan Problem List - Problems (1) Aspiration pneumonia Code(s): J69.0 - PNEUMONITIS DUE TO INHALATION OF FOOD AND VOMIT (2) Hypercapnia Code(s): R06.89 - OTHER ABNORMALITIES OF BREATHING (3) Seizure Code(s): R56.9 - UNSPECIFIED CONVULSIONS (4) Asthma Code(s): J45.909 - UNSPECIFIED ASTHMA, UNCOMPLICATED Qualifiers: Asthma severity: mild intermittent Asthma complication type: uncomplicated Qualified Code(s): J45.20 - Mild intermittent asthma, uncomplicated (5) GERD (gastroesophageal reflux disease) Code(s): K21.9 - GASTRO-ESOPHAGEAL REFLUX DISEASE WITHOUT ESOPHAGITIS (6) Cerebral palsy, quadriplegic Code(s): G80.8 - OTHER CEREBRAL PALSY (7) Hypothyroidism Code(s): E03.9 - HYPOTHYROIDISM, UNSPECIFIED (8) Mental retardation Code(s): F79 - UNSPECIFIED INTELLECTUAL DISABILITIES pseudomonas pna mrsa pna plan patient intubated and sedated all cx reports noted patient will need iv abx for quite some time suctioning abx adjusted rest ct as per icu and primary cc time 40 min
[2017-06-25] MEDS: PIPERACILLIN/TAZOB 4.5 GM 100 ML IVPB SCH (17:48)
[2017-06-25] MEDS: VANCOMYCIN 1,250 MG in DEXTROSE 5%-WATER - 250 ML IVPB SCH (17:50)
[2017-06-25] MEDS ORDERED: KCL 10 MEQ IVPB 100 ML IVPB SCH (19:00)
[2017-06-25] MEDS ORDERED: POTASSIUM CHLORIDE ORAL LIQUID 20 MEQ/15 ML PO ONE (19:48)
[2017-06-25] MEDS: CHLORHEXIDINE GLUCONATE 4% CLEANSER FOR DECOLONIZATION TP SCH (21:14)
[2017-06-26] MEDS: PIPERACILLIN/TAZOB 4.5 GM 100 ML IVPB SCH ×3 (01:30→17:19)
[2017-06-26] MEDS: LEVOTHYROXINE NA 50 MCG TABLET (FP) GT SCH (06:32)
[2017-06-26] MEDS: clonazePAM 0.5 MG TABLET GT SCH ×3 (06:32→22:06)
[2017-06-26] MEDS: GABAPENTIN 100 MG CAPSULE (FP) GT SCH ×3 (06:32→22:06)
[2017-06-26 06:42] LABS: MCH 35.9 pg (25.7-33.7); MCHC 33.2 g/dl (32.0-35.9); MEAN PLT VOLUME 7.8 fl (7.5-11.1); PLATELET COUNT 151 K/MM3 (134-434); RDW 16.7 % (11.9-15.9); WHITE BLOOD COUNT 4.3 K/mm3 (4.0-10.0)
[2017-06-26] MEDS: DOPAMINE 400 MG/D5W - 250 ML IVPB SCH (07:00)
[2017-06-26 07:03] LABS: ANION GAP 6 (8-16); CALCIUM 8.2 mg/dL (8.5-10.1); CO2 28 mmol/L (21-32); GLUCOSE,RANDOM 82 mg/dL (74-106); MAGNESIUM 2.2 mg/dL (1.8-2.4)
[2017-06-26 07:04] LABS: CREATININE 0.6 mg/dL (0.7-1.3)
--- NOTE | 2017-06-26 09:08 | PN ---
Progress Note, Physician History of Present Illness: Patient seen and examined at bedside. Pt is intubated and off sedation since yesterday. Patient is in no acute distress. Dopamine was halved overnight and blood pressure has been stable at a MAP of 69. - Current Medication List Current Medications: Active Medications Albuterol Sulfate (Ventolin 0.083% Nebulizer Soln -) 1 amp NEB Q4H PRN PRN Reason: SHORT OF BREATH/WHEEZING Chlorhexidine Gluconate (Hibiclens For Decolonization -) 1 applic TP HS [facility] Last Admin: 06/25/17 21:14 Dose: 1 applic Clonazepam (Klonopin -) 0.5 mg GT TID [facility] Last Admin: 06/26/17 06:32 Dose: 0.5 mg Gabapentin (Neurontin -) 200 mg GT TID [facility] Last Admin: 06/26/17 06:32 Dose: 200 mg Sodium Chloride (Normal Saline -) 1,000 mls @ 100 mls/hr IV ASDIR [facility] Last Admin: 06/25/17 19:00 Dose: Not Given Dopamine HCl/Dextrose (Dopamine 400 Mg/D5w -) 250 mls @ 10.993 mls/hr IVPB TITR GILL; 5 MCG/KG/MIN PRN Reason: Protocol Last Titration: 06/25/17 17:00 Dose: 3 mcg/kg/min Vancomycin HCl 1,250 mg/ (Dextrose) 250 mls @ 250 mls/hr IVPB DAILY GILL PRN Reason: Protocol Last Admin: 06/25/17 17:50 Dose: 250 mls/hr Piperacillin Sod/Tazobactam Sod (Zosyn 4.5gm Ivpb (Pre-Docked)) 100 mls @ 200 mls/hr IVPB Q8H-IV GILL PRN Reason: Protocol Last Admin: 06/26/17 01:30 Dose: 200 mls/hr Lamotrigine (Lamictal -) 200 mg GT BID [facility] Last Admin: 06/25/17 21:31 Dose: 200 mg Levothyroxine Sodium (Synthroid -) 50 mcg GT DAILY@0700 [facility] Last Admin: 06/26/17 06:32 Dose: 50 mcg Loratadine (Claritin -) 10 mg GT DAILY [facility] Last Admin: 06/25/17 09:49 Dose: 10 mg Mupirocin (Bactroban Ointment (For Decolonization) -) 1 applic NS BID [facility] Stop: 06/29/17 21:59 Last Admin: 06/25/17 21:13 Dose: 1 applic Pantoprazole Sodium (Protonix 40mg Ivpb (Pre-Docked)) 40 mg IVPB DAILY [facility] Last Admin: 06/25/17 09:52 Dose: 40 mg Topiramate (Topamax -) 25 mg NR BID [facility] Last Admin: 06/25/17 21:31 Dose: 25 mg Valproate Sodium (Depacon Injection -) 375 mg IVPB BID [facility] Last Admin: 06/25/17 21:13 Dose: 375 mg - Objective Vital Signs: Vital Signs Temperature 97.5 F L 06/26/17 06:00 Pulse Rate 75 06/26/17 08:00 Respiratory Rate 26 H 06/26/17 08:00 Blood Pressure 85/46 06/26/17 08:00 O2 Sat by Pulse Oximetry (%) 93 L 06/25/17 22:00 Constitutional: Yes: No Distress Eyes: Yes: Other (R eye conjuntiva injected) HENT: Yes: Atraumatic, Normocephalic Neck: Yes: Supple Cardiovascular: Yes: Regular Rate and Rhythm Respiratory: Yes: Intubated, Wheezes Gastrointestinal: Yes: Normal Bowel Sounds, Soft, Abdomen, Obese Edema: No Peripheral Pulses WNL: Yes Integumentary: Yes: WNL Neurological: No: Alert, Oriented Psychiatric: No: Alert, Oriented Labs: CBC, BMP 06/26/17 05:15 06/26/17 05:15 - ....Imaging Chest X-ray: Report Reviewed, Image Reviewed Problem List - Problems (1) Pneumonia Code(s): J18.9 - PNEUMONIA, UNSPECIFIED ORGANISM Qualifiers: Pneumonia type: due to unspecified organism Laterality: right Lung location: unspecified part of lung Qualified Code(s): J18.9 - Pneumonia, unspecified organism (2) Seizure Code(s): R56.9 - UNSPECIFIED CONVULSIONS (3) Asthma Code(s): J45.909 - UNSPECIFIED ASTHMA, UNCOMPLICATED Qualifiers: Asthma severity: mild intermittent Asthma complication type: uncomplicated Qualified Code(s): J45.20 - Mild intermittent asthma, uncomplicated (4) Cerebral palsy, quadriplegic Code(s): G80.8 - OTHER CEREBRAL PALSY (5) Hypothermia Code(s): T68.XXXA - HYPOTHERMIA, INITIAL ENCOUNTER (6) Hypothyroidism Code(s): E03.9 - HYPOTHYROIDISM, UNSPECIFIED (7) Mental retardation Code(s): F79 - UNSPECIFIED INTELLECTUAL DISABILITIES Assessment/Plan 46 year old male pmh cerebral palsy, developmental disability, seizure disorder , asthma, and O2 dependent respiratory failure [facility] distress and congestion. Pt intubated and monitored in ICU off sedation since last night. Neuro: -patient is intubated and off sedation -HR stable at 60-70bpm -monitor cardiac status -continue topiramate, valproate, and lamotrigine for seizures as per neuro recommendations -continue clonazepam and gabapentin -pt was previously hypothermic - is normothermic today Respiratory: -patient w/ congestion likely 2/2 aspiration pneumonia or mucous plug, cxr shows moderate right pleural effusion - tip of the ET tube projecting over T2- T3 disc space. -continue clindamycin 600mg -continue zosyn -blood cultures negative -sputum cultures grew MSSA and pseudomonas -patient remains intubated -am CXR Cardiovascular: patient has a stable HR (70) MAP of ~69 -decrease dopamine from 5mg to 2.5mg, monitor BP for 1 hour, assess if dopamine can be d/c'd completely -after weaning off of dopamine, 40 IV lasix if stable off dopamine for several hours FEN: -continue NS @ 100 -repeat lytes Prophylaxsis: -SCDs -switch protonix 40 IV QD to 40 PO QD Dispo: -continue to monitor in ICU -f/u with palliative care
[2017-06-26] MEDS: VALPROATE SODIUM 500 MG/5 ML VIAL IVPB SCH ×2 (09:38→22:05)
[2017-06-26] MEDS ORDERED: PT OWN MED DRAWER 7, Y5N ONE ×2 (09:41→22:00)
[2017-06-26] MEDS: lamoTRIgine 100 MG TABLET (FP) GT SCH ×2 (09:41→22:06)
[2017-06-26] MEDS: LORATADINE 10 MG TABLET GT SCH (09:42)
[2017-06-26] MEDS: TOPIRAMATE 25 MG TABLET (FP) NR SCH ×2 (09:42→22:07)
--- NOTE | 2017-06-26 10:29 | PN ---
Progress Note (short form) - Note Progress Note: Neurology History of Present Illness 45-year-old male history of asthma, profound mental retardation, cerebral palsy , functional quadriplegia, recurrent epistaxis, seizure disorder, history of Katherine fundoplication (stomach wrapped to prevent reflux), s/p PEG, recurrent pneumonia, respiratory failure, oxygen dependent, sent from [facility] for upper respiratory congestion. CXR w/ progressive R infiltrate, effusion and congestion. Patient sedated, intubated and on mechanical ventilation in ICU care. Minimally responsive and does have underlying seizure disorder but no witnessed events at skilled nursing. Patient on IV Abx. ID following. CAtivan PRN can also be used but no motor abnormal activity noted on exam or witnessed. No significant improvement overnight. Remains in ICU with close monitoring. Spoke to nurse yesterday and he has been having episodes of agitation which has been relieved by Ativan, 0.5mg. Respiratory distress is a concern during these episodes and not overbreathing vent at this time. No seizure events provoked. Spoke with primary and Ethics committee may be involved with determining patient guardian status (mother vs mar of the state) . Goals of care to be further considered. Active Medications Albuterol Sulfate (Ventolin 0.083% Nebulizer Soln -) 1 amp NEB Q4H PRN PRN Reason: SHORT OF BREATH/WHEEZING Chlorhexidine Gluconate (Hibiclens For Decolonization -) 1 applic TP HS [facility] Last Admin: 06/25/17 21:14 Dose: 1 applic Clonazepam (Klonopin -) 0.5 mg GT TID [facility] Last Admin: 06/26/17 06:32 Dose: 0.5 mg Gabapentin (Neurontin -) 200 mg GT TID [facility] Last Admin: 06/26/17 06:32 Dose: 200 mg Sodium Chloride (Normal Saline -) 1,000 mls @ 100 mls/hr IV ASDIR [facility] Last Admin: 06/25/17 19:00 Dose: Not Given Dopamine HCl/Dextrose (Dopamine 400 Mg/D5w -) 250 mls @ 10.993 mls/hr IVPB TITR GILL; 5 MCG/KG/MIN PRN Reason: Protocol Last Titration: 06/25/17 17:00 Dose: 3 mcg/kg/min Vancomycin HCl 1,250 mg/ (Dextrose) 250 mls @ 250 mls/hr IVPB DAILY [facility] PRN Reason: Protocol Last Admin: 06/25/17 17:50 Dose: 250 mls/hr Piperacillin Sod/Tazobactam Sod (Zosyn 4.5gm Ivpb (Pre-Docked)) 100 mls @ 200 mls/hr IVPB Q8H-IV [facility] PRN Reason: Protocol Last Admin: 06/26/17 09:38 Dose: 200 mls/hr Lamotrigine (Lamictal -) 200 mg GT BID [facility] Last Admin: 06/26/17 09:41 Dose: 200 mg Levothyroxine Sodium (Synthroid -) 50 mcg GT DAILY@0700 [facility] Last Admin: 06/26/17 06:32 Dose: 50 mcg Loratadine (Claritin -) 10 mg GT DAILY [facility] Last Admin: 06/26/17 09:42 Dose: 10 mg Mupirocin (Bactroban Ointment (For Decolonization) -) 1 applic NS BID [facility] Stop: 06/29/17 21:59 Last Admin: 06/25/17 21:13 Dose: 1 applic Pantoprazole Sodium (Protonix 40mg Ivpb (Pre-Docked)) 40 mg IVPB DAILY [facility] Last Admin: 06/25/17 09:52 Dose: 40 mg Topiramate (Topamax -) 25 mg NR BID [facility] Last Admin: 06/26/17 09:42 Dose: 25 mg Valproate Sodium (Depacon Injection -) 375 mg IVPB BID [facility] Last Admin: 06/26/17 09:38 Dose: 375 mg *Physical Exam Last Vital Signs Temp Pulse Resp BP Pulse Ox 97.3 F L 78 26 H 101/48 90 L 06/26/17 09:01 06/26/17 09:01 06/26/17 09:01 06/26/17 09:01 06/26/17 09:00 General Appearance: Yes: Appropriately Dressed, not following commands, intubated on mechanical ventilation HEENT: positive: Other (mostly coagulated blood to tongue/teeth, possibly small tongue lac) Respiratory/Chest: positive: Rhonchi, Cardiovascular: positive: S1, S2 Gastrointestinal/Abdominal: positive: Soft. negative: Mass Integumentary: positive: Dry, Warm Neuro: Pupil responsive, not following commands, responds to pain and tactile stimulation, no apparent CN deficits, no abnormal motor activity, not participating in confrontation testing CBCD WBC 4.3 K/mm3 (4.0-10.0) D 06/26/17 05:15 RBC 2.35 M/mm3 (4.00-5.60) L 06/26/17 05:15 Hgb 8.4 GM/dL (11.7-16.9) L D 06/26/17 05:15 Hct 25.4 % (35.4-49) L 06/26/17 05:15 MCV 108.0 fl (80-96) H 06/26/17 05:15 MCHC 33.2 g/dl (32.0-35.9) 06/26/17 05:15 RDW 16.7 % (11.9-15.9) H 06/26/17 05:15 Plt Count 151 K/MM3 (134-434) 06/26/17 05:15 MPV 7.8 fl (7.5-11.1) 06/26/17 05:15 CMP Sodium 140 mmol/L (136-145) 06/26/17 05:15 Potassium 4.3 mmol/L (3.5-5.1) D 06/26/17 05:15 Chloride 106 mmol/L (98-107) 06/26/17 05:15 Carbon Dioxide 28 mmol/L (21-32) 06/26/17 05:15 Anion Gap 6 (8-16) L 06/26/17 05:15 BUN 21 mg/dL (7-18) H 06/26/17 05:15 Creatinine 0.6 mg/dL (0.7-1.3) L 06/26/17 05:15 Creat Clearance w eGFR > 60 (>60) 06/25/17 05:20 Calcium 8.2 mg/dL (8.5-10.1) L 06/26/17 05:15 Total Bilirubin 0.5 mg/dL (0.2-1.0) 06/25/17 05:20 AST 34 U/L (15-37) 06/25/17 05:20 ALT 27 U/L (12-78) 06/25/17 05:20 Alkaline Phosphatase 304 U/L (45-117) H D 06/25/17 05:20 Total Protein 6.3 g/dl (6.4-8.2) L 06/25/17 05:20 Albumin 1.8 g/dl (3.4-5.0) L 06/25/17 05:20 Medical Decision Making 45-year-old male history of asthma, profound mental retardation, cerebral palsy , functional quadriplegia, recurrent epistaxis, seizure disorder, history of Katherine fundoplication (stomach wrapped to prevent reflux), s/p PEG, recurrent pneumonia, respiratory failure, oxygen dependent, sent from [facility] for upper respiratory congestion. Patient sedated, intubated and on mechanical ventilation in ICU care. There is concern for possible aspiration PNA. CXR w/ progressive R infiltrate, effusion and congestion. Continue ICU monitoring. Blood support as required. Minimally responsive and does have underlying seizure disorder but no witnessed events at skilled nursing. Not over breathing vent, remains on mechanical ventilation, weaning when able. Patient on IV Abx. ID following. Can continue seizure medications, Lamictal, Topamax, Valproate. Ativan PRN can also be used at low dose for aggitation or if seizure occurs but no motor abnormal activity noted on exam or witnessed. Follow up Ethics committee and evaluation of goals of care based on guardianship. Critical care time 35 minutes.
[2017-06-26] MEDS: VANCOMYCIN 1,250 MG in DEXTROSE 5%-WATER - 250 ML IVPB SCH (11:08)
[2017-06-26] MEDS: PANTOPRAZOLE SODIUM 40 MG/100 ML PRE-DOCKED IVPB SCH (11:08)
[2017-06-26] MEDS: MUPIROCIN 2% TOPICAL OINTMENT FOR DECOLONIZATION NS SCH ×2 (11:10→22:05)
--- NOTE | 2017-06-26 12:04 | PN ---
Teaching Attending Note Name of Resident: Sunny Banda ATTENDING PHYSICIAN STATEMENT I saw and evaluated the patient. I reviewed the resident's note and discussed the case with the resident. I agree with the resident's findings and plan as documented. SUBJECTIVE: Patient seen and examined in the ICU. Remains intubated and sedated. Temperature is improved. Remains on 5 mcq Dopamine for hemodynamic support. AC mode of vent. CXR : No gross change in bilateral airspace disease Intake & Output 06/23/17 06/24/17 06/25/17 06/26/17 23:59 23:59 23:59 23:59 Intake Total 1218.5 4234.7 4625 1434 Output Total 1000 1800 600 500 Balance 218.5 2434.7 4025 934 Weight 126 lb 1 oz 129 lb 4 oz 129 lb 140 lb 5 oz Last Vital Signs Temp Pulse Resp BP Pulse Ox 96.9 F L 68 26 H 107/53 93 L 06/26/17 11:00 06/26/17 11:00 06/26/17 11:57 06/26/17 11:00 06/26/17 11:45 Active Medications Albuterol Sulfate (Ventolin 0.083% Nebulizer Soln -) 1 amp NEB Q4H PRN PRN Reason: SHORT OF BREATH/WHEEZING Chlorhexidine Gluconate (Hibiclens For Decolonization -) 1 applic TP HS [facility] Last Admin: 06/25/17 21:14 Dose: 1 applic Clonazepam (Klonopin -) 0.5 mg GT TID [facility] Last Admin: 06/26/17 06:32 Dose: 0.5 mg Gabapentin (Neurontin -) 200 mg GT TID [facility] Last Admin: 06/26/17 06:32 Dose: 200 mg Sodium Chloride (Normal Saline -) 1,000 mls @ 100 mls/hr IV ASDIR [facility] Last Admin: 06/25/17 19:00 Dose: Not Given Dopamine HCl/Dextrose (Dopamine 400 Mg/D5w -) 250 mls @ 10.993 mls/hr IVPB TITR [facility]; 5 MCG/KG/MIN PRN Reason: Protocol Last Admin: 06/26/17 07:00 Dose: 10.993 mls/hr Vancomycin HCl 1,250 mg/ (Dextrose) 250 mls @ 250 mls/hr IVPB DAILY [facility] PRN Reason: Protocol Last Admin: 06/26/17 11:08 Dose: 250 mls/hr Piperacillin Sod/Tazobactam Sod (Zosyn 4.5gm Ivpb (Pre-Docked)) 100 mls @ 200 mls/hr IVPB Q8H-IV [facility] PRN Reason: Protocol Last Admin: 06/26/17 09:38 Dose: 200 mls/hr Lamotrigine (Lamictal -) 200 mg GT BID [facility] Last Admin: 06/26/17 09:41 Dose: 200 mg Levothyroxine Sodium (Synthroid -) 50 mcg GT DAILY@0700 [facility] Last Admin: 06/26/17 06:32 Dose: 50 mcg Loratadine (Claritin -) 10 mg GT DAILY [facility] Last Admin: 06/26/17 09:42 Dose: 10 mg Mupirocin (Bactroban Ointment (For Decolonization) -) 1 applic NS BID [facility] Stop: 06/29/17 21:59 Last Admin: 06/26/17 11:10 Dose: 1 applic Pantoprazole Sodium (Protonix -) 40 mg PO DAILY [facility] Topiramate (Topamax -) 25 mg NR BID [facility] Last Admin: 06/26/17 09:42 Dose: 25 mg Valproate Sodium (Depacon Injection -) 375 mg IVPB BID [facility] Last Admin: 06/26/17 09:38 Dose: 375 mg General: Intubated and sedated Cardiac: S1S2 Respiratory: Intubated and sedated, bilateral coarse rhonchi, no wheeze Gastrointestinal: Yes: WNL, (+) BS, Soft, PEG ...Rectal Exam: Yes: Deferred Renal/: Yes: WNL Breast(s): Yes: WNL Musculoskeletal: Yes: WNL Extremities: Yes: WNL Edema: LUE: Trace, RUE: Trace, LLE: Trace, RLE: Trace Peripheral Pulses WNL: Yes Neurological: Yes: Unresponsive ...Motor Strength: WNL Psychiatric: Yes: WNL Labs: Laboratory Results - last 24 hr 06/26/17 06/26/17 05:15 05:15 WBC 4.3 D RBC 2.35 L Hgb 8.4 L D Hct 25.4 L MCV 108.0 H MCH 35.9 H MCHC 33.2 RDW 16.7 H Plt Count 151 MPV 7.8 Sodium 140 Potassium 4.3 D Chloride 106 Carbon Dioxide 28 Anion Gap 6 L BUN 21 H Creatinine 0.6 L Random Glucose 82 D Calcium 8.2 L Phosphorus 4.0 D Magnesium 2.2 Problem List - Problems (1) Aspiration pneumonia Code(s): J69.0 - PNEUMONITIS DUE TO INHALATION OF FOOD AND VOMIT (2) Hypercapnia Code(s): R06.89 - OTHER ABNORMALITIES OF BREATHING (3) Seizure Code(s): R56.9 - UNSPECIFIED CONVULSIONS (4) Asthma Code(s): J45.909 - UNSPECIFIED ASTHMA, UNCOMPLICATED Qualifiers: Asthma severity: mild intermittent Asthma complication type: uncomplicated Qualified Code(s): J45.20 - Mild intermittent asthma, uncomplicated (5) GERD (gastroesophageal reflux disease) Code(s): K21.9 - GASTRO-ESOPHAGEAL REFLUX DISEASE WITHOUT ESOPHAGITIS (6) Cerebral palsy, quadriplegic Code(s): G80.8 - OTHER CEREBRAL PALSY (7) Hypothyroidism Code(s): E03.9 - HYPOTHYROIDISM, UNSPECIFIED (8) Mental retardation Code(s): F79 - UNSPECIFIED INTELLECTUAL DISABILITIES Assessment/Plan Acute Hypercapneic/Hypoxic Respiratory Failure CP Profound MR Seizure D/O Functional quadriplegia Asthma Recurrent PNA Atelectasis Hypothermia -> (?) Autonomic dysfunction PLAN: -Wean Dopamine drip -SBTs as tolerated -BD TX -Daily Sedation vacation -ABX coverage -IVF -Palliative evaluation for GOC ongoing (requested by mother) -VTE prophylaxis Dr Rivas CCTime 35" The care of this patient involved high complexity decision making to prevent further life threatening deterioration of the patient's condition and/or to evaluate & treat vital organ system(s) failure or risk of failure.
[2017-06-26] MEDS ORDERED: INSULIN (NOVOLOG) ASPART 100 UNITS/ML 10ML VIAL ONE (12:30)
[2017-06-26] MEDS: PANTOPRAZOLE 40 MG TABLET (FP) PO SCH (14:15)
[2017-06-26] MEDS ORDERED: FUROSEMIDE 40 MG/4 ML INJECTABLE VIAL IVPUSH ONE (16:03)
--- NOTE | 2017-06-26 16:23 | PN ---
Progress Note (short form) - Note Progress Note: Palliative care: The patient has been readmitted for respiratory failure and has a background history that is familiar to the ICU and the palliative care teams. This includes CP, recurrent pneumonia, functional quadriplegia, MR and seizure disorder. The patient is currently on ventilator support and dopamine and is followed closely by the ICU team and Intensivists among other consultations. We have had a discussion regarding this patient at our palliative care team meeting this Saturday, June 24, 2017. Our palliative care nurse has reached out to the mom (Faiza Cummings) who knows our team very well. Faiza as coguardian with her ex- has again requested that her decision making especially in regard to such choices as DNR/DNI are not being honored and are not "ethical". However these discussions have been brought up several times in the past with the family and according to the current regulations there is a process for a patient with developmental disability in which the Director of his home at [facility] and [facility] are notified and review the current checklist which lists the requirements for a decision for DNR DNI or to withhold or withdraw life sustaining treatment. So far, each time these forms have been completed the decision has been that he should not be made a DNR according to the current criteria. If these forms are resubmitted and these decisions are unchanged, a formal ethics committee meeting can be arranged if representatives from [place], [facility], the family and any interested health care providers wish to be present.
--- NOTE | 2017-06-26 18:01 | PN ---
Progress Note, Physician History of Present Illness: continues to be intubated and sedated improving minimal secretions - Current Medication List Current Medications: Active Medications Albuterol Sulfate (Ventolin 0.083% Nebulizer Soln -) 1 amp NEB Q4H PRN PRN Reason: SHORT OF BREATH/WHEEZING Chlorhexidine Gluconate (Hibiclens For Decolonization -) 1 applic TP HS [facility] Last Admin: 06/25/17 21:14 Dose: 1 applic Clonazepam (Klonopin -) 0.5 mg GT TID [facility] Last Admin: 06/26/17 14:15 Dose: 0.5 mg Fentanyl (Sublimaze Injection -) 50 mcg IVPUSH Q1H PRN PRN Reason: PAIN Stop: 06/27/17 16:14 Last Admin: 06/26/17 16:14 Dose: 50 mcg Gabapentin (Neurontin -) 200 mg GT TID [facility] Last Admin: 06/26/17 14:15 Dose: 200 mg Sodium Chloride (Normal Saline -) 1,000 mls @ 100 mls/hr IV [facility] Last Admin: 06/25/17 19:00 Dose: Not Given Dopamine HCl/Dextrose (Dopamine 400 Mg/D5w -) 250 mls @ 10.993 mls/hr IVPB TITR [facility]; 5 MCG/KG/MIN PRN Reason: Protocol Last Titration: 06/26/17 12:00 Dose: 0 mcg/kg/min Vancomycin HCl 1,250 mg/ (Dextrose) 250 mls @ 250 mls/hr IVPB DAILY [facility] PRN Reason: Protocol Last Admin: 06/26/17 11:08 Dose: 250 mls/hr Piperacillin Sod/Tazobactam Sod (Zosyn 4.5gm Ivpb (Pre-Docked)) 100 mls @ 200 mls/hr IVPB Q8H-IV [facility] PRN Reason: Protocol Last Admin: 06/26/17 17:19 Dose: 200 mls/hr Lamotrigine (Lamictal -) 200 mg GT BID [facility] Last Admin: 06/26/17 09:41 Dose: 200 mg Levothyroxine Sodium (Synthroid -) 50 mcg GT DAILY@0700 [facility] Last Admin: 06/26/17 06:32 Dose: 50 mcg Loratadine (Claritin -) 10 mg GT DAILY [facility] Last Admin: 06/26/17 09:42 Dose: 10 mg Mupirocin (Bactroban Ointment (For Decolonization) -) 1 applic NS BID [facility] Stop: 06/29/17 21:59 Last Admin: 06/26/17 11:10 Dose: 1 applic Pantoprazole Sodium (Protonix -) 40 mg PO DAILY [facility] Last Admin: 06/26/17 14:15 Dose: 40 mg Topiramate (Topamax -) 25 mg NR BID [facility] Last Admin: 06/26/17 09:42 Dose: 25 mg Valproate Sodium (Depacon Injection -) 375 mg IVPB BID [facility] Last Admin: 06/26/17 09:38 Dose: 375 mg - Objective Vital Signs: Vital Signs Temperature 98.3 F 06/26/17 17:56 Pulse Rate 62 06/26/17 17:56 Respiratory Rate 20 06/26/17 17:56 Blood Pressure 95/62 06/26/17 17:56 O2 Sat by Pulse Oximetry (%) 93 L 06/26/17 11:45 Constitutional: Yes: Other Cardiovascular: Yes: Regular Rate and Rhythm Respiratory: Yes: Intubated, Mechanically Ventilated Gastrointestinal: Yes: Normal Bowel Sounds, Soft, Other (peg in place) Musculoskeletal: Yes: Other Extremities: Yes: Other Neurological: Yes: Other Psychiatric: Yes: Other Labs: CBC, BMP 06/26/17 05:15 06/26/17 05:15 Assessment/Plan Problem List - Problems (1) Aspiration pneumonia Code(s): J69.0 - PNEUMONITIS DUE TO INHALATION OF FOOD AND VOMIT (2) Hypercapnia Code(s): R06.89 - OTHER ABNORMALITIES OF BREATHING (3) Seizure Code(s): R56.9 - UNSPECIFIED CONVULSIONS (4) Asthma Code(s): J45.909 - UNSPECIFIED ASTHMA, UNCOMPLICATED Qualifiers: Asthma severity: mild intermittent Asthma complication type: uncomplicated Qualified Code(s): J45.20 - Mild intermittent asthma, uncomplicated (5) GERD (gastroesophageal reflux disease) Code(s): K21.9 - GASTRO-ESOPHAGEAL REFLUX DISEASE WITHOUT ESOPHAGITIS (6) Cerebral palsy, quadriplegic Code(s): G80.8 - OTHER CEREBRAL PALSY (7) Hypothyroidism Code(s): E03.9 - HYPOTHYROIDISM, UNSPECIFIED (8) Mental retardation Code(s): F79 - UNSPECIFIED INTELLECTUAL DISABILITIES pseudomonas pna mrsa pna plan patient intubated and sedated continue iv abx suctioning rest as per icu continue to wean if possible rest as per team cc time 40 min
--- NOTE | 2017-06-26 18:43 | PN ---
Progress Note (short form) - Note Progress Note: Subjective: The patient remains intubated and sedated Current Medications Generic Name Dose Route Start Last Admin Trade Name Freq PRN Reason Stop Dose Admin Albuterol Sulfate 1 amp 06/22/17 20:41 Ventolin 0.083% Nebulizer Soln - NEB Q4H PRN SHORT OF BREATH/WHEEZING Chlorhexidine Gluconate 1 applic 06/24/17 22:00 06/25/17 21:14 Hibiclens For Decolonization - TP 1 applic HS [facility] Administration Clonazepam 0.5 mg 06/22/17 22:00 06/26/17 14:15 Klonopin - GT 0.5 mg TID [facility] Administration Fentanyl 50 mcg 06/26/17 16:05 06/26/17 18:05 Sublimaze Injection - IVPUSH 06/27/17 16:14 50 mcg Q1H PRN Administration PAIN Gabapentin 200 mg 06/22/17 22:00 06/26/17 14:15 Neurontin - GT 200 mg TID [facility] Administration Sodium Chloride 1,000 mls @ 100 mls/hr 06/22/17 19:00 06/25/17 19:00 Normal Saline - IV Not Given ASDIR [facility] Dopamine HCl/Dextrose 250 mls @ 10.993 mls/hr 06/24/17 07:45 06/26/17 12:00 Dopamine 400 Mg/D5w - IVPB 0 mcg/kg/min TITR [facility] Titration Protocol 5 MCG/KG/MIN Vancomycin HCl 1,250 mg/ 250 mls @ 250 mls/hr 06/25/17 17:30 06/26/17 11:08 Dextrose IVPB 250 mls/hr DAILY [facility] Administration Protocol Piperacillin Sod/Tazobactam Sod 100 mls @ 200 mls/hr 06/25/17 18:00 06/26/17 17 :19 Zosyn 4.5gm Ivpb (Pre-Docked) IVPB 200 mls/hr Q8H-IV [facility] Administration Protocol Lamotrigine 200 mg 06/22/17 22:00 06/26/17 09:41 Lamictal - GT 200 mg BID [facility] Administration Levothyroxine Sodium 50 mcg 06/23/17 07:00 06/26/17 06:32 Synthroid - GT 50 mcg DAILY@0700 [facility] Administration Loratadine 10 mg 06/23/17 10:00 06/26/17 09:42 Claritin - GT 10 mg DAILY [facility] Administration Mupirocin 1 applic 06/24/17 22:00 06/26/17 11:10 Bactroban Ointment (For Decolonization) - NS 06/29/17 21:59 1 applic BID [facility] Administration Pantoprazole Sodium 40 mg 06/26/17 12:45 06/26/17 14:15 Protonix - PO 40 mg DAILY [facility] Administration Topiramate 25 mg 06/22/17 22:00 06/26/17 09:42 Topamax - NR 25 mg BID [facility] Administration Valproate Sodium 375 mg 06/22/17 22:00 06/26/17 09:38 Depacon Injection - IVPB 375 mg BID [facility] Administration Objective: Vital Signs Period Temp Pulse Resp BP Sys/Celestin Pulse Ox Last 24 Hr 96.9 F-98.5 F 53-92 15-30 85-116/45-82 90-93 Physical Exam: General: Intubated, sedated Lungs: Coarse b/l rhonchi Heart: RRR, S1S2 Abd: PEG in place. Normoactive bowel sounds Ext: Warm, well-perfused Neuro: sedated CBCD WBC 4.3 K/mm3 (4.0-10.0) D 06/26/17 05:15 RBC 2.35 M/mm3 (4.00-5.60) L 06/26/17 05:15 Hgb 8.4 GM/dL (11.7-16.9) L D 06/26/17 05:15 Hct 25.4 % (35.4-49) L 06/26/17 05:15 MCV 108.0 fl (80-96) H 06/26/17 05:15 MCHC 33.2 g/dl (32.0-35.9) 06/26/17 05:15 RDW 16.7 % (11.9-15.9) H 06/26/17 05:15 Plt Count 151 K/MM3 (134-434) 06/26/17 05:15 MPV 7.8 fl (7.5-11.1) 06/26/17 05:15 CMP Sodium 140 mmol/L (136-145) 06/26/17 05:15 Potassium 4.3 mmol/L (3.5-5.1) D 06/26/17 05:15 Chloride 106 mmol/L (98-107) 06/26/17 05:15 Carbon Dioxide 28 mmol/L (21-32) 06/26/17 05:15 Anion Gap 6 (8-16) L 06/26/17 05:15 BUN 21 mg/dL (7-18) H 06/26/17 05:15 Creatinine 0.6 mg/dL (0.7-1.3) L 06/26/17 05:15 Creat Clearance w eGFR > 60 (>60) 06/25/17 05:20 Random Glucose 82 mg/dL (74-106) D 06/26/17 05:15 Calcium 8.2 mg/dL (8.5-10.1) L 06/26/17 05:15 Total Bilirubin 0.5 mg/dL (0.2-1.0) 06/25/17 05:20 AST 34 U/L (15-37) 06/25/17 05:20 ALT 27 U/L (12-78) 06/25/17 05:20 Alkaline Phosphatase 304 U/L (45-117) H D 06/25/17 05:20 Total Protein 6.3 g/dl (6.4-8.2) L 06/25/17 05:20 Albumin 1.8 g/dl (3.4-5.0) L 06/25/17 05:20 CARDIAC ENZYMES Creatine Kinase 85 IU/L (39-308) 06/22/17 18:35 Troponin I < 0.02 ng/ml (0.00-0.05) 06/22/17 18:35 Microbiology 06/22/17 17:00 Blood - Peripheral Venous Blood Culture - Preliminary NO GROWTH OBTAINED AFTER 96 HOURS, INCUBATION TO CONTINUE FOR 1 DAYS. 06/22/17 17:00 Blood - Peripheral Venous Blood Culture - Preliminary NO GROWTH OBTAINED AFTER 96 HOURS, INCUBATION TO CONTINUE FOR 1 DAYS. 06/24/17 12:30 Sputum - Endotrachea Suction/Ventilator Gram Stain - Final 06/24/17 12:30 Sputum - Endotrachea Suction/Ventilator Sputum Culture - Final Staphylococcus Aureus Pseudomonas Aeruginosa 06/23/17 23:00 Urine - Urine - Catheterized Urine Culture - Final Escherichia Coli Assessment: This is a 46 year old male with PMHx of asthma, profound mental retardation, cerebral palsy, functional quadriplegia, recurrent epistaxis, seizure disorder, history of Katherine fundoplication (stomach wrapped to prevent reflux), s/p PEG, recurrent pneumonia, respiratory failure, oxygen dependent, sent from [facility] for upper respiratory congestion. Plan: 1) Pulmonary: Acute hypoxic, hypercapneic respiratory failure - Remains intubated - Daily sedation vacation - Albuterol nebulizer q4h prn 2) ID: Septic shock 2/2 pneumonia - Remains on pressors - Continue Zosyn (06/22- ) - Continue Clindamycin (06/24- ) - Appreciate ID consult 3) Neuro: Seizure disorder - Continue Valproate - Continue Lamictal - Continue Topamax - Ativan prn - Appreciate neurology consult 4) Endocrine: hypothyroidism - Continue synthroid 5) Hematology: Chronic Anemia - Continue to trend 6) F/E/N: - Tube feeds - Monitor electrolytes 7) Prophylaxis: - SCDs bilaterally - Patient has history of bleeding with chemical dvt prophylaxis, will hold for now - Functional quadraplegia 8) Dispo: - Requires continued ICU care CODE STATUS: FULL CODE Visit type - Emergency Visit Emergency Visit: Yes ED Registration Date: 06/22/17 Care time: The patient presented to the Emergency Department on the above date and was hospitalized for further evaluation of their emergent condition. - New Patient This patient is new to me today: No - Critical Care Critical Care patient: Yes Total Critical Care Time (in minutes): 35 Critical Care Statement: The care of this patient involved high complexity decision making to prevent further life threatening deterioration of the patient 's condition and/or to evaluate & treat vital organ system(s) failure or risk of failure.
[2017-06-26] MEDS: SODIUM CHLORIDE 1,000 ML IV SCH (19:00)
[2017-06-26] MEDS: CHLORHEXIDINE GLUCONATE 4% CLEANSER FOR DECOLONIZATION TP SCH (22:06)
[2017-06-27] MEDS: PIPERACILLIN/TAZOB 4.5 GM 100 ML IVPB SCH ×3 (02:00→18:29)
[2017-06-27] MEDS: GABAPENTIN 100 MG CAPSULE (FP) GT SCH ×3 (05:19→21:47)
[2017-06-27] MEDS: clonazePAM 0.5 MG TABLET GT SCH ×3 (05:19→21:47)
[2017-06-27] MEDS: LEVOTHYROXINE NA 50 MCG TABLET (FP) GT SCH (06:14)
[2017-06-27 06:40] LABS: BASOPHIL 0.5 % (0-2.0); EOSINOPHIL 3.4 % (0-4.5); MCH 35.3 pg (25.7-33.7); MCHC 31.9 g/dl (32.0-35.9); MEAN CELL VOLUME 110.6 fl (80-96); MEAN PLT VOLUME 8.1 fl (7.5-11.1); NEUTROPHILS 35.4 % (42.8-82.8); PLATELET COUNT 129 K/MM3 (134-434); RDW 16.8 % (11.9-15.9); WHITE BLOOD COUNT 5.1 K/mm3 (4.0-10.0)
[2017-06-27 07:10] LABS: ALBUMIN 1.8 g/dl (3.4-5.0); ALK PHOS 269 U/L (45-117); ANION GAP 8 (8-16); BILIRUBIN,TOTAL 0.4 mg/dL (0.2-1.0); CALCIUM 8.6 mg/dL (8.5-10.1); CO2 29 mmol/L (21-32); CREATININE 0.8 mg/dL (0.7-1.3); GLUCOSE,RANDOM 96 mg/dL (74-106); SGOT/AST 43 U/L (15-37); SGPT/ALT 28 U/L (12-78)
[2017-06-27] MEDS ORDERED: diazePAM ACUDIAL 5-7.5-10 MG 1 EACH KIT RC PRN (07:42)
[2017-06-27] MEDS ORDERED: ALBUTEROL SO4 0.083% IH SOL 2.5 MG/3 ML VIAL.NEB. NEB PRN (07:42)
[2017-06-27] MEDS ORDERED: GLYCOPYRROLATE 0.2 MG/1 ML VIAL IVPB SCH (07:45)
[2017-06-27] MEDS: DOPAMINE 400 MG/D5W - 250 ML IVPB SCH (07:56)
[2017-06-27] MEDS ORDERED: FUROSEMIDE 40 MG/4 ML INJECTABLE VIAL IVPB ONE (08:00)
[2017-06-27] MEDS ORDERED: GLYCOPYRROLATE 1 MG TABLET PO SCH (08:00)
[2017-06-27] MEDS ORDERED: PT OWN MED DRAWER 7, Y5N ONE ×2 (09:17→21:20)
[2017-06-27] MEDS: TOPIRAMATE 25 MG TABLET (FP) NR SCH ×2 (09:19→21:49)
[2017-06-27] MEDS: LORATADINE 10 MG TABLET GT SCH (09:19)
[2017-06-27] MEDS: PANTOPRAZOLE 40 MG TABLET (FP) PO SCH (09:19)
[2017-06-27] MEDS: MUPIROCIN 2% TOPICAL OINTMENT FOR DECOLONIZATION NS SCH ×2 (09:19→21:46)
[2017-06-27] MEDS: lamoTRIgine 100 MG TABLET (FP) GT SCH ×2 (09:22→21:47)
[2017-06-27] MEDS ORDERED: DIAZEPAM ACUDIAL 12.5-15-20 20 MG KIT RC PRN (09:23)
[2017-06-27] MEDS: POLYETHYLENE GLYCOL 3350 119 GM BTL PEG SCH (09:26)
[2017-06-27] MEDS ORDERED: PANTOPRAZOLE 40 MG TABLET (FP) PO SCH (10:00)
[2017-06-27] MEDS ORDERED: DIVALPROEX SODIUM 250 MG TABLET E.C. (FP) PO SCH (10:00)
--- NOTE | 2017-06-27 10:27 | PN ---
Progress Note (short form) - Note Progress Note: Neurology History of Present Illness 45-year-old male history of asthma, profound mental retardation, cerebral palsy , functional quadriplegia, recurrent epistaxis, seizure disorder, history of Katherine fundoplication (stomach wrapped to prevent reflux), s/p PEG, recurrent pneumonia, respiratory failure, oxygen dependent, sent from [facility] for upper respiratory congestion. CXR w/ progressive R infiltrate, effusion and congestion. Patient sedated, intubated and on mechanical ventilation in ICU care. Minimally responsive and does have underlying seizure disorder but no witnessed events at halfway. Patient on IV Abx. ID following. CAtivan PRN can also be used but no motor abnormal activity noted on exam or witnessed. No significant improvement overnight. Remains in ICU with close monitoring. Spoke to nurse yesterday and he has been having episodes of agitation which has been relieved by Ativan, 0.5mg. Respiratory distress is a concern during these episodes and not overbreathing vent at this time. No seizure events provoked. Spoke with primary and Ethics committee may be involved with determining patient guardian status (mother vs mar of the state) . Goals of care to be further considered. No significant changes overnight. Active Medications Albuterol Sulfate (Ventolin 0.083% Nebulizer Soln -) 1 amp NEB Q4H PRN PRN Reason: SHORT OF BREATH/WHEEZING Albuterol Sulfate (Ventolin 0.083% Nebulizer Soln -) 1 amp NEB Q8H PRN PRN Reason: SHORT OF BREATH/WHEEZING Chlorhexidine Gluconate (Hibiclens For Decolonization -) 1 applic TP HS [facility] Last Admin: 06/26/17 22:06 Dose: 1 applic Clonazepam (Klonopin -) 0.5 mg GT TID [facility] Last Admin: 06/27/17 05:19 Dose: 0.5 mg Diazepam (Diastat Rectal Gel -) 12.5 mg RC PRN PRN PRN Reason: SEIZURE Fentanyl (Sublimaze Injection -) 50 mcg IVPUSH Q1H PRN PRN Reason: PAIN Stop: 06/27/17 16:14 Last Admin: 06/27/17 08:14 Dose: 50 mcg Gabapentin (Neurontin -) 200 mg GT TID [facility] Last Admin: 06/27/17 05:19 Dose: 200 mg Glycopyrrolate (Robinul -) 1 mg PO TID [facility] Vancomycin HCl 1,250 mg/ (Dextrose) 250 mls @ 250 mls/hr IVPB DAILY [facility] PRN Reason: Protocol Last Admin: 06/26/17 11:08 Dose: 250 mls/hr Piperacillin Sod/Tazobactam Sod (Zosyn 4.5gm Ivpb (Pre-Docked)) 100 mls @ 200 mls/hr IVPB Q8H-IV [facility] PRN Reason: Protocol Last Admin: 06/27/17 09:20 Dose: 200 mls/hr Lamotrigine (Lamictal -) 200 mg GT BID [facility] Last Admin: 06/27/17 09:22 Dose: 200 mg Levothyroxine Sodium (Synthroid -) 50 mcg GT DAILY@0700 [facility] Last Admin: 06/27/17 06:14 Dose: 50 mcg Loratadine (Claritin -) 10 mg GT DAILY [facility] Last Admin: 06/27/17 09:19 Dose: 10 mg Mupirocin (Bactroban Ointment (For Decolonization) -) 1 applic NS BID [facility] Stop: 06/29/17 21:59 Last Admin: 06/27/17 09:19 Dose: 1 applic Polyethylene Glycol (Miralax (For Daily Use) -) 17 gm PEG DAILY [facility] Last Admin: 06/27/17 09:26 Dose: 17 gm Ranitidine HCl (Zantac Oral Solution -) 150 mg PO DAILY [facility] Senna (Senna Oral Solution -) 17.6 mg PEG HS [facility] Topiramate (Topamax -) 25 mg NR BID [facility] Last Admin: 06/27/17 09:19 Dose: 25 mg Valproate Sodium (Depakene -) 375 mg GT BID [facility] *Physical Exam Vital Signs Temperature 97.3 F L 06/27/17 08:34 Pulse Rate 56 L 06/27/17 09:09 Respiratory Rate 15 06/27/17 09:09 Blood Pressure 102/91 06/27/17 08:34 O2 Sat by Pulse Oximetry (%) 94 L 06/27/17 09:09 General Appearance: Yes: Appropriately Dressed, not following commands, intubated on mechanical ventilation HEENT: positive: Other (mostly coagulated blood to tongue/teeth, possibly small tongue lac) Respiratory/Chest: positive: Rhonchi, Cardiovascular: positive: S1, S2 Gastrointestinal/Abdominal: positive: Soft. negative: Mass Integumentary: positive: Dry, Warm Neuro: Pupil responsive, not following commands, responds to pain and tactile stimulation, no apparent CN deficits, no abnormal motor activity, not participating in confrontation testing CBCD WBC 5.1 K/mm3 (4.0-10.0) 06/27/17 05:30 RBC 2.26 M/mm3 (4.00-5.60) L 06/27/17 05:30 Hgb 8.0 GM/dL (11.7-16.9) L 06/27/17 05:30 Hct 25.0 % (35.4-49) L 06/27/17 05:30 MCV 110.6 fl (80-96) H 06/27/17 05:30 MCHC 31.9 g/dl (32.0-35.9) L 06/27/17 05:30 RDW 16.8 % (11.9-15.9) H 06/27/17 05:30 Plt Count 129 K/MM3 (134-434) L 06/27/17 05:30 MPV 8.1 fl (7.5-11.1) 06/27/17 05:30 CMP Sodium 143 mmol/L (136-145) 06/27/17 05:30 Potassium 4.2 mmol/L (3.5-5.1) 06/27/17 05:30 Chloride 106 mmol/L (98-107) 06/27/17 05:30 Carbon Dioxide 29 mmol/L (21-32) 06/27/17 05:30 Anion Gap 8 (8-16) 06/27/17 05:30 BUN 25 mg/dL (7-18) H 06/27/17 05:30 Creatinine 0.8 mg/dL (0.7-1.3) D 06/27/17 05:30 Creat Clearance w eGFR > 60 (>60) 06/27/17 05:30 Calcium 8.6 mg/dL (8.5-10.1) 06/27/17 05:30 Total Bilirubin 0.4 mg/dL (0.2-1.0) 06/27/17 05:30 AST 43 U/L (15-37) H D 06/27/17 05:30 ALT 28 U/L (12-78) 06/27/17 05:30 Alkaline Phosphatase 269 U/L (45-117) H 06/27/17 05:30 Total Protein 6.0 g/dl (6.4-8.2) L 06/27/17 05:30 Albumin 1.8 g/dl (3.4-5.0) L 06/27/17 05:30 Medical Decision Making 45-year-old male history of asthma, profound mental retardation, cerebral palsy , functional quadriplegia, recurrent epistaxis, seizure disorder, history of Katherine fundoplication (stomach wrapped to prevent reflux), s/p PEG, recurrent pneumonia, respiratory failure, oxygen dependent, sent from [facility] for upper respiratory congestion. Patient sedated, intubated and on mechanical ventilation in ICU care. There is concern for possible aspiration PNA. CXR w/ progressive R infiltrate, effusion and congestion. Continue ICU monitoring. Blood support as required. Minimally responsive and does have underlying seizure disorder but no witnessed events at halfway. Not over breathing vent, remains on mechanical ventilation, weaning when able. Patient on IV Abx. ID following. Can continue seizure medications, Lamictal, Topamax, Valproate. Ativan PRN can also be used at low dose for aggitation or if seizure occurs but no motor abnormal activity noted on exam or witnessed. Follow up Ethics committee and evaluation of goals of care based on guardianship. No further rec'd at this time. Critical care time 35 minutes.
[2017-06-27] MEDS: VANCOMYCIN 1,250 MG in DEXTROSE 5%-WATER - 250 ML IVPB SCH (11:16)
[2017-06-27] MEDS: VALPROATE SODIUM 250 MG/5 ML UNIT DOSE CUP GT SCH ×2 (11:17→21:46)
[2017-06-27 11:22] LABS: MAGNESIUM 2.7 mg/dL (1.8-2.4); PHOSPHOROUS 3.4 mg/dL (2.5-4.9)
[2017-06-27] MEDS: RANITIDINE HCL 150 MG/10 ML UNIT-DOSE CUP PO SCH (11:27)
--- NOTE | 2017-06-27 11:51 | PN ---
Progress Note (short form) - Note Progress Note: Subjective: The patient remains intubated and sedated Current Medications Generic Name Dose Route Start Last Admin Trade Name Freq PRN Reason Stop Dose Admin Albuterol Sulfate 1 amp 06/22/17 20:41 Ventolin 0.083% Nebulizer Soln - NEB Q4H PRN SHORT OF BREATH/WHEEZING Albuterol Sulfate 1 amp 06/27/17 07:42 Ventolin 0.083% Nebulizer Soln - NEB Q8H PRN SHORT OF BREATH/WHEEZING Chlorhexidine Gluconate 1 applic 06/24/17 22:00 06/26/17 22:06 Hibiclens For Decolonization - TP 1 applic HS [facility] Administration Clonazepam 0.5 mg 06/22/17 22:00 06/27/17 05:19 Klonopin - GT 0.5 mg TID [facility] Administration Diazepam 12.5 mg 06/27/17 09:23 Diastat Rectal Gel - RC PRN PRN SEIZURE Fentanyl 50 mcg 06/26/17 16:05 06/27/17 08:14 Sublimaze Injection - IVPUSH 06/27/17 16:14 50 mcg Q1H PRN Administration PAIN Gabapentin 200 mg 06/22/17 22:00 06/27/17 05:19 Neurontin - GT 200 mg TID [facility] Administration Glycopyrrolate 1 mg 06/27/17 14:00 Robinul - PO TID [facility] Vancomycin HCl 1,250 mg/ 250 mls @ 250 mls/hr 06/25/17 17:30 06/27/17 11:16 Dextrose IVPB 250 mls/hr DAILY [facility] Administration Protocol Piperacillin Sod/Tazobactam Sod 100 mls @ 200 mls/hr 06/25/17 18:00 06/27/17 09 :20 Zosyn 4.5gm Ivpb (Pre-Docked) IVPB 200 mls/hr Q8H-IV [facility] Administration Protocol Lamotrigine 200 mg 06/22/17 22:00 06/27/17 09:22 Lamictal - GT 200 mg BID [facility] Administration Levothyroxine Sodium 50 mcg 06/23/17 07:00 06/27/17 06:14 Synthroid - GT 50 mcg DAILY@0700 [facility] Administration Loratadine 10 mg 06/23/17 10:00 06/27/17 09:19 Claritin - GT 10 mg DAILY [facility] Administration Mupirocin 1 applic 06/24/17 22:00 06/27/17 09:19 Bactroban Ointment (For Decolonization) - NS 06/29/17 21:59 1 applic BID [facility] Administration Polyethylene Glycol 17 gm 06/27/17 10:00 06/27/17 09:26 Miralax (For Daily Use) - PEG 17 gm DAILY [facility] Administration Ranitidine HCl 150 mg 06/27/17 10:00 06/27/17 11:27 Zantac Oral Solution - PO 150 mg DAILY [facility] Administration Senna 17.6 mg 06/27/17 22:00 Senna Oral Solution - PEG HS [facility] Topiramate 25 mg 06/22/17 22:00 06/27/17 09:19 Topamax - NR 25 mg BID [facility] Administration Valproate Sodium 375 mg 06/27/17 10:00 06/27/17 11:17 Depakene - GT 375 mg BID [facility] Administration Objective: Vital Signs Period Temp Pulse Resp BP Sys/Celestin Pulse Ox Last 24 Hr 97.1 F-98.6 F 52-92 14-30 87-114/46-91 93-99 Physical Exam: General: Intubated, sedated Lungs: Coarse b/l rhonchi Heart: RRR, S1S2 Abd: PEG in place. Normoactive bowel sounds Ext: Warm. 3+ pedal edema Neuro: sedated CBCD WBC 5.1 K/mm3 (4.0-10.0) 06/27/17 05:30 RBC 2.26 M/mm3 (4.00-5.60) L 06/27/17 05:30 Hgb 8.0 GM/dL (11.7-16.9) L 06/27/17 05:30 Hct 25.0 % (35.4-49) L 06/27/17 05:30 MCV 110.6 fl (80-96) H 06/27/17 05:30 MCHC 31.9 g/dl (32.0-35.9) L 06/27/17 05:30 RDW 16.8 % (11.9-15.9) H 06/27/17 05:30 Plt Count 129 K/MM3 (134-434) L 06/27/17 05:30 MPV 8.1 fl (7.5-11.1) 06/27/17 05:30 CMP Sodium 143 mmol/L (136-145) 06/27/17 05:30 Potassium 4.2 mmol/L (3.5-5.1) 06/27/17 05:30 Chloride 106 mmol/L (98-107) 06/27/17 05:30 Carbon Dioxide 29 mmol/L (21-32) 06/27/17 05:30 Anion Gap 8 (8-16) 06/27/17 05:30 BUN 25 mg/dL (7-18) H 06/27/17 05:30 Creatinine 0.8 mg/dL (0.7-1.3) D 06/27/17 05:30 Creat Clearance w eGFR > 60 (>60) 06/27/17 05:30 Random Glucose 96 mg/dL (74-106) 06/27/17 05:30 Calcium 8.6 mg/dL (8.5-10.1) 06/27/17 05:30 Total Bilirubin 0.4 mg/dL (0.2-1.0) 06/27/17 05:30 AST 43 U/L (15-37) H D 06/27/17 05:30 ALT 28 U/L (12-78) 06/27/17 05:30 Alkaline Phosphatase 269 U/L (45-117) H 06/27/17 05:30 Total Protein 6.0 g/dl (6.4-8.2) L 06/27/17 05:30 Albumin 1.8 g/dl (3.4-5.0) L 06/27/17 05:30 CARDIAC ENZYMES Creatine Kinase 85 IU/L (39-308) 06/22/17 18:35 Troponin I < 0.02 ng/ml (0.00-0.05) 06/22/17 18:35 Microbiology 06/22/17 17:00 Blood - Peripheral Venous Blood Culture - Preliminary NO GROWTH OBTAINED AFTER 96 HOURS, INCUBATION TO CONTINUE FOR 1 DAYS. 06/22/17 17:00 Blood - Peripheral Venous Blood Culture - Preliminary NO GROWTH OBTAINED AFTER 96 HOURS, INCUBATION TO CONTINUE FOR 1 DAYS. 06/24/17 12:30 Sputum - Endotrachea Suction/Ventilator Gram Stain - Final 06/24/17 12:30 Sputum - Endotrachea Suction/Ventilator Sputum Culture - Final Staphylococcus Aureus Pseudomonas Aeruginosa 06/23/17 23:00 Urine - Urine - Catheterized Urine Culture - Final Escherichia Coli Assessment: This is a 46 year old male with PMHx of asthma, profound mental retardation, cerebral palsy, functional quadriplegia, recurrent epistaxis, seizure disorder, history of Katherine fundoplication (stomach wrapped to prevent reflux), s/p PEG, recurrent pneumonia, respiratory failure, oxygen dependent, sent from [facility] for upper respiratory congestion. Plan: 1) Pulmonary: Acute hypoxic, hypercapneic respiratory failure - Remains intubated - Daily sedation vacation - Albuterol nebulizer q4h prn 2) ID: Septic shock 2/ pneumonia - Off pressors, maintain MAP >65 - Continue Zosyn (06/22- ) - Continue Vancomycin (06/25- ) - Appreciate ID consult 3) Neuro: Seizure disorder - Continue Valproate - Continue Lamictal - Continue Topamax - Ativan prn - Appreciate neurology consult 4) Endocrine: hypothyroidism - Continue synthroid 5) Hematology: Chronic Anemia - Continue to trend 6) F/E/N: - Tube feeds - Monitor electrolytes 7) Prophylaxis: - SCDs bilaterally - Patient has history of bleeding with chemical dvt prophylaxis, will hold for now - Functional quadraplegia 8) Dispo: - Requires continued ICU care CODE STATUS: FULL CODE Visit type - Emergency Visit Emergency Visit: Yes ED Registration Date: 06/22/17 Care time: The patient presented to the Emergency Department on the above date and was hospitalized for further evaluation of their emergent condition. - New Patient This patient is new to me today: No - Critical Care Critical Care patient: Yes Total Critical Care Time (in minutes): 35 Critical Care Statement: The care of this patient involved high complexity decision making to prevent further life threatening deterioration of the patient 's condition and/or to evaluate & treat vital organ system(s) failure or risk of failure.
--- NOTE | 2017-06-27 12:03 | PN ---
Teaching Attending Note Name of Resident: Brady Mendez ATTENDING PHYSICIAN STATEMENT I saw and evaluated the patient. I reviewed the resident's note and discussed the case with the resident. I agree with the resident's findings and plan as documented. SUBJECTIVE: Patient seen and examined in the ICU. Remains intubated. Awake off sedation. Currently off pressors. AC mode of vent. CXR : No gross change in bilateral airspace disease / effusions Intake & Output 06/24/17 06/25/17 06/26/17 06/27/17 23:59 23:59 23:59 23:59 Intake Total 4234.7 4625 3254 1924 Output Total 1080 829 0947 1000 Balance 2434.7 4025 354 924 Weight 129 lb 4 oz 129 lb 140 lb 5 oz 141 lb 7 oz Last Vital Signs Temp Pulse Resp BP Pulse Ox 97.3 F L 59 L 20 86/50 94 L 06/27/17 11:48 06/27/17 11:48 06/27/17 11:48 06/27/17 11:48 06/27/17 09:09 Active Medications Albuterol Sulfate (Ventolin 0.083% Nebulizer Soln -) 1 amp NEB Q4H PRN PRN Reason: SHORT OF BREATH/WHEEZING Albuterol Sulfate (Ventolin 0.083% Nebulizer Soln -) 1 amp NEB Q8H PRN PRN Reason: SHORT OF BREATH/WHEEZING Chlorhexidine Gluconate (Hibiclens For Decolonization -) 1 applic TP HS [facility] Last Admin: 06/26/17 22:06 Dose: 1 applic Clonazepam (Klonopin -) 0.5 mg GT TID [facility] Last Admin: 06/27/17 05:19 Dose: 0.5 mg Diazepam (Diastat Rectal Gel -) 12.5 mg RC PRN PRN PRN Reason: SEIZURE Fentanyl (Sublimaze Injection -) 50 mcg IVPUSH Q1H PRN PRN Reason: PAIN Stop: 06/27/17 16:14 Last Admin: 06/27/17 08:14 Dose: 50 mcg Gabapentin (Neurontin -) 200 mg GT TID [facility] Last Admin: 06/27/17 05:19 Dose: 200 mg Glycopyrrolate (Robinul -) 1 mg PO TID [facility] Vancomycin HCl 1,250 mg/ (Dextrose) 250 mls @ 250 mls/hr IVPB DAILY [facility] PRN Reason: Protocol Last Admin: 06/27/17 11:16 Dose: 250 mls/hr Piperacillin Sod/Tazobactam Sod (Zosyn 4.5gm Ivpb (Pre-Docked)) 100 mls @ 200 mls/hr IVPB Q8H-IV [facility] PRN Reason: Protocol Last Admin: 06/27/17 09:20 Dose: 200 mls/hr Lamotrigine (Lamictal -) 200 mg GT BID [facility] Last Admin: 06/27/17 09:22 Dose: 200 mg Levothyroxine Sodium (Synthroid -) 50 mcg GT DAILY@0700 [facility] Last Admin: 06/27/17 06:14 Dose: 50 mcg Loratadine (Claritin -) 10 mg GT DAILY [facility] Last Admin: 06/27/17 09:19 Dose: 10 mg Mupirocin (Bactroban Ointment (For Decolonization) -) 1 applic NS BID [facility] Stop: 06/29/17 21:59 Last Admin: 06/27/17 09:19 Dose: 1 applic Polyethylene Glycol (Miralax (For Daily Use) -) 17 gm PEG DAILY [facility] Last Admin: 06/27/17 09:26 Dose: 17 gm Ranitidine HCl (Zantac Oral Solution -) 150 mg PO DAILY [facility] Last Admin: 06/27/17 11:27 Dose: 150 mg Senna (Senna Oral Solution -) 17.6 mg PEG HS [facility] Topiramate (Topamax -) 25 mg NR BID [facility] Last Admin: 06/27/17 09:19 Dose: 25 mg Valproate Sodium (Depakene -) 375 mg GT BID [facility] Last Admin: 06/27/17 11:17 Dose: 375 mg General: Intubated and awake Cardiac: S1S2 Respiratory: Intubated and awake, bilateral coarse rhonchi, no wheeze Gastrointestinal: Yes: WNL, (+) BS, Soft, PEG Renal/: Yes: WNL Breast(s): Yes: WNL Musculoskeletal: Yes: WNL Extremities: Yes: WNL Edema: LUE: Trace, RUE: Trace, LLE: Trace, RLE: Trace Peripheral Pulses WNL: Yes Neurological: Yes: Awake ...Motor Strength: WNL Psychiatric: Yes: WNL Labs: Laboratory Results - last 24 hr 06/27/17 06/27/17 06/27/17 05:30 05:30 06:00 WBC 5.1 RBC 2.26 L Hgb 8.0 L Hct 25.0 L MCV 110.6 H MCH 35.3 H MCHC 31.9 L RDW 16.8 H Plt Count 129 L MPV 8.1 Neutrophils % 35.4 L D Lymphocytes % 44.4 H D Monocytes % 16.3 H Eosinophils % 3.4 D Basophils % 0.5 Sodium 143 Potassium 4.2 Chloride 106 Carbon Dioxide 29 Anion Gap 8 BUN 25 H Creatinine 0.8 D Creat Clearance w eGFR > 60 Random Glucose 96 Calcium 8.6 Phosphorus 3.4 Cancelled Magnesium 2.7 H D Cancelled Total Bilirubin 0.4 AST 43 H D ALT 28 Alkaline Phosphatase 269 H Total Protein 6.0 L Albumin 1.8 L Valproic Acid 06/27/17 09:15 WBC RBC Hgb Hct MCV MCH MCHC RDW Plt Count MPV Neutrophils % Lymphocytes % Monocytes % Eosinophils % Basophils % Sodium Potassium Chloride Carbon Dioxide Anion Gap BUN Creatinine Creat Clearance w eGFR Random Glucose Calcium Phosphorus Magnesium Total Bilirubin AST ALT Alkaline Phosphatase Total Protein Albumin Valproic Acid 35.086 L Problem List - Problems (1) Aspiration pneumonia Code(s): J69.0 - PNEUMONITIS DUE TO INHALATION OF FOOD AND VOMIT (2) Hypercapnia Code(s): R06.89 - OTHER ABNORMALITIES OF BREATHING (3) Seizure Code(s): R56.9 - UNSPECIFIED CONVULSIONS (4) Asthma Code(s): J45.909 - UNSPECIFIED ASTHMA, UNCOMPLICATED Qualifiers: Asthma severity: mild intermittent Asthma complication type: uncomplicated Qualified Code(s): J45.20 - Mild intermittent asthma, uncomplicated (5) GERD (gastroesophageal reflux disease) Code(s): K21.9 - GASTRO-ESOPHAGEAL REFLUX DISEASE WITHOUT ESOPHAGITIS (6) Cerebral palsy, quadriplegic Code(s): G80.8 - OTHER CEREBRAL PALSY (7) Hypothyroidism Code(s): E03.9 - HYPOTHYROIDISM, UNSPECIFIED (8) Mental retardation Code(s): F79 - UNSPECIFIED INTELLECTUAL DISABILITIES Assessment/Plan Acute Hypercapneic/Hypoxic Respiratory Failure CP Profound MR Seizure D/O Functional quadriplegia Asthma Recurrent PNA Atelectasis Hypothermia -> (?) Autonomic dysfunction PLAN: -Monitor off pressors -SBTs as tolerated -BD TX -Daily Sedation vacation -ABX coverage -D/C IVF -VTE prophylaxis -Diuresis +/- need for pigtail insertion Dr Rivas CCTime 35" The care of this patient involved high complexity decision making to prevent further life threatening deterioration of the patient's condition and/or to evaluate & treat vital organ system(s) failure or risk of failure.
[2017-06-27] MEDS: GLYCOPYRROLATE 1 MG TABLET PO SCH ×2 (14:34→21:48)
[2017-06-27] MEDS ORDERED: RACEPINEPHRINE IH SOL 2.25% 11.25 MG/0.5 ML VIAL NEB ONE ×2 (15:00→15:01)
[2017-06-27] MEDS ORDERED: DEXAMETHASONE SOD PHOSPHATE 10 MG/1 ML VIAL IVPUSH ONE (15:02)
[2017-06-27] MEDS ORDERED: IPRATROPIUM BR 0.02% 0.5 MG/2.5 ML VIAL.NEB. NEB ONE (15:03)
[2017-06-27] MEDS ORDERED: ALBUTEROL SO4 0.083% IH SOL 2.5 MG/3 ML VIAL.NEB. NEB ONE (15:03)
[2017-06-27] MEDS ORDERED: FUROSEMIDE 40 MG/4 ML INJECTABLE VIAL IVPUSH ONE (15:03)
[2017-06-27] MEDS ORDERED: ALBUTEROL SO4 2.5/IPRATROPIUM 0.5 INH SOL 3 ML VIAL.NEB. NEB PRN (15:03)
[2017-06-27] MEDS ORDERED: ALBUTEROL SO4 2.5/IPRATROPIUM 0.5 INH SOL 3 ML VIAL.NEB. NEB ONE (15:04)
[2017-06-27] MEDS ORDERED: ARTIFICIAL TEARS (POLYVINYL ALCOHOL 1.4%) OPTH DROPS OU PRN (15:09)
--- NOTE | 2017-06-27 16:06 | PN ---
Progress Note, Physician History of Present Illness: Patient intubated and sedated. He is alert and fighting the vent when sedation is discontinued. For extubation today - Current Medication List Current Medications: Active Medications Albuterol Sulfate (Ventolin 0.083% Nebulizer Soln -) 1 amp NEB Q4H PRN PRN Reason: SHORT OF BREATH/WHEEZING Albuterol/Ipratropium (Duoneb -) 1 amp NEB Q4H PRN PRN Reason: SHORTNESS OF BREATH Artificial Tears (Artificial Tears) 1 drop OU BID PRN PRN Reason: DRY EYES Chlorhexidine Gluconate (Hibiclens For Decolonization -) 1 applic TP HS [facility] Last Admin: 06/26/17 22:06 Dose: 1 applic Clonazepam (Klonopin -) 0.5 mg GT TID [facility] Last Admin: 06/27/17 14:32 Dose: 0.5 mg Diazepam (Diastat Rectal Gel -) 12.5 mg RC PRN PRN PRN Reason: SEIZURE Fentanyl (Sublimaze Injection -) 50 mcg IVPUSH Q1H PRN PRN Reason: PAIN Stop: 06/27/17 16:14 Last Admin: 06/27/17 08:14 Dose: 50 mcg Gabapentin (Neurontin -) 200 mg GT TID [facility] Last Admin: 06/27/17 14:32 Dose: 200 mg Glycopyrrolate (Robinul -) 1 mg PO TID [facility] Last Admin: 06/27/17 14:34 Dose: 1 mg Vancomycin HCl 1,250 mg/ (Dextrose) 250 mls @ 250 mls/hr IVPB DAILY [facility] PRN Reason: Protocol Last Admin: 06/27/17 11:16 Dose: 250 mls/hr Piperacillin Sod/Tazobactam Sod (Zosyn 4.5gm Ivpb (Pre-Docked)) 100 mls @ 200 mls/hr IVPB Q8H-IV [facility] PRN Reason: Protocol Last Admin: 06/27/17 09:20 Dose: 200 mls/hr Lamotrigine (Lamictal -) 200 mg GT BID [facility] Last Admin: 06/27/17 09:22 Dose: 200 mg Levothyroxine Sodium (Synthroid -) 50 mcg GT DAILY@0700 REPLACED [facility] Last Admin: 06/27/17 06:14 Dose: 50 mcg Loratadine (Claritin -) 10 mg GT DAILY [facility] Last Admin: 06/27/17 09:19 Dose: 10 mg Mupirocin (Bactroban Ointment (For Decolonization) -) 1 applic NS BID [facility] Stop: 06/29/17 21:59 Last Admin: 06/27/17 09:19 Dose: 1 applic Polyethylene Glycol (Miralax (For Daily Use) -) 17 gm PEG DAILY [facility] Last Admin: 06/27/17 09:26 Dose: 17 gm Ranitidine HCl (Zantac Oral Solution -) 150 mg PO DAILY [facility] Last Admin: 06/27/17 11:27 Dose: 150 mg Senna (Senna Oral Solution -) 17.6 mg PEG HS [facility]PL[facility]ED [facility] Topiramate (Topamax -) 25 mg NR BID [facility] BY [facility] Last Admin: 06/27/17 09:19 Dose: 25 mg Valproate Sodium (Depakene -) 375 mg GT BID [facility] Last Admin: 06/27/17 11:17 Dose: 375 mg - Objective Vital Signs: Vital Signs Temperature 97.3 F L 06/27/17 11:48 Pulse Rate 61 06/27/17 13:00 Respiratory Rate 15 06/27/17 13:35 Blood Pressure 98/54 06/27/17 13:00 O2 Sat by Pulse Oximetry (%) 94 L 06/27/17 09:09 Constitutional: Yes: No Distress, Calm HENT: Yes: Atraumatic, Normocephalic Neck: Yes: Supple, Trachea Midline Cardiovascular: Yes: Regular Rate and Rhythm Respiratory: Yes: Regular, Rhonchi (course and bilateral) Gastrointestinal: Yes: Normal Bowel Sounds, Soft Neurological: Yes: Alert Labs: CBC, BMP 06/27/17 05:30 06/27/17 05:30 Problem List - Problems (1) Aspiration pneumonia Code(s): J69.0 - PNEUMONITIS DUE TO INHALATION OF FOOD AND VOMIT (2) Hypercapnia Code(s): R06.89 - OTHER ABNORMALITIES OF BREATHING (3) Seizure Code(s): R56.9 - UNSPECIFIED CONVULSIONS (4) Asthma Code(s): J45.909 - UNSPECIFIED ASTHMA, UNCOMPLICATED Qualifiers: Asthma severity: mild intermittent Asthma complication type: uncomplicated Qualified Code(s): J45.20 - Mild intermittent asthma, uncomplicated (5) Cerebral palsy, quadriplegic Code(s): G80.8 - OTHER CEREBRAL PALSY (6) Mental retardation Code(s): F79 - UNSPECIFIED INTELLECTUAL DISABILITIES (7) Functional quadriplegia Code(s): R53.2 - FUNCTIONAL QUADRIPLEGIA Assessment/Plan 46 yo w/ PMH CP, MR seizure, asthma, o2 dependent respiratory failure came to the ER from [facility] for upper respiratory congestion. He was intubated in the ED and brought to the ICU for further management. Neuro: -intubated and off sedation -restarted depakene 375mg via PEG Respiratory: -patient w/ PMH recurrent pneumonia c/o congestion 2/2 aspiration PNA vs mucous plugging -cxr unchanged today -Zosyn 3.375g IV -Patient intubated -will wean to extubate Abdominal: -Constipation; resumed home laxatives FEN: -NS @ 100 -monitor lytes Prophylaxsis: -SCDs -protonix 40mg PO daily Dispo: -continue to monitor in ICU
[2017-06-27] MEDS: CHLORHEXIDINE GLUCONATE 4% CLEANSER FOR DECOLONIZATION TP SCH (21:46)
[2017-06-27] MEDS: SENNOSIDES 8.8 MG/5 ML BULK BOTTLE PEG SCH (21:48)
--- NOTE | 2017-06-27 22:25 | PN ---
Progress Note, Physician History of Present Illness: continues to be sedated patient improving - Current Medication List Current Medications: Active Medications Albuterol/Ipratropium (Duoneb -) 1 amp NEB Q4H PRN PRN Reason: SHORTNESS OF BREATH Artificial Tears (Artificial Tears) 1 drop OU BID PRN PRN Reason: DRY EYES Chlorhexidine Gluconate (Hibiclens For Decolonization -) 1 applic TP HS [facility] Last Admin: 06/27/17 21:46 Dose: 1 applic Clonazepam (Klonopin -) 0.5 mg GT TID [facility] Last Admin: 06/27/17 21:47 Dose: 0.5 mg Diazepam (Diastat Rectal Gel -) 12.5 mg RC PRN PRN PRN Reason: SEIZURE Gabapentin (Neurontin -) 200 mg GT TID [facility] Last Admin: 06/27/17 21:47 Dose: 200 mg Glycopyrrolate (Robinul -) 1 mg PO TID [facility] Last Admin: 06/27/17 21:48 Dose: 1 mg Vancomycin HCl 1,250 mg/ (Dextrose) 250 mls @ 250 mls/hr IVPB DAILY [facility] PRN Reason: Protocol Last Admin: 06/27/17 11:16 Dose: 250 mls/hr Piperacillin Sod/Tazobactam Sod (Zosyn 4.5gm Ivpb (Pre-Docked)) 100 mls @ 200 mls/hr IVPB Q8H-IV [facility] PRN Reason: Protocol Last Admin: 06/27/17 18:29 Dose: 200 mls/hr Lamotrigine (Lamictal -) 200 mg GT BID [facility] Last Admin: 06/27/17 21:47 Dose: 200 mg Levothyroxine Sodium (Synthroid -) 50 mcg GT DAILY@0700 [facility] Last Admin: 06/27/17 06:14 Dose: 50 mcg Loratadine (Claritin -) 10 mg GT DAILY [facility] Last Admin: 06/27/17 09:19 Dose: 10 mg Mupirocin (Bactroban Ointment (For Decolonization) -) 1 applic NS BID [facility] Stop: 06/29/17 21:59 Last Admin: 06/27/17 21:46 Dose: 1 applic Polyethylene Glycol (Miralax (For Daily Use) -) 17 gm PEG DAILY [facility] Last Admin: 06/27/17 09:26 Dose: 17 gm Ranitidine HCl (Zantac Oral Solution -) 150 mg PO DAILY [facility] Last Admin: 06/27/17 11:27 Dose: 150 mg Senna (Senna Oral Solution -) 17.6 mg PEG HS [facility] Last Admin: 06/27/17 21:48 Dose: 17.6 mg Topiramate (Topamax -) 25 mg NR BID [facility] Last Admin: 06/27/17 21:49 Dose: 25 mg Valproate Sodium (Depakene -) 375 mg GT BID [facility] Last Admin: 06/27/17 21:46 Dose: 375 mg - Objective Vital Signs: Vital Signs Temperature 98.7 F 06/27/17 22:00 Pulse Rate 76 06/27/17 22:00 Respiratory Rate 18 06/27/17 22:00 Blood Pressure 114/75 06/27/17 22:00 O2 Sat by Pulse Oximetry (%) 92 L 06/27/17 20:00 Constitutional: Yes: Calm, Other Cardiovascular: Yes: Regular Rate and Rhythm Respiratory: Yes: Intubated, Mechanically Ventilated Gastrointestinal: Yes: Normal Bowel Sounds, Soft, Other (peg tube in place) Genitourinary: Yes: WNL Neurological: Yes: Other Psychiatric: Yes: Other Labs: CBC, BMP 06/27/17 05:30 06/27/17 05:30 Assessment/Plan Problem List - Problems (1) Aspiration pneumonia Code(s): J69.0 - PNEUMONITIS DUE TO INHALATION OF FOOD AND VOMIT (2) Hypercapnia Code(s): R06.89 - OTHER ABNORMALITIES OF BREATHING (3) Seizure Code(s): R56.9 - UNSPECIFIED CONVULSIONS (4) Asthma Code(s): J45.909 - UNSPECIFIED ASTHMA, UNCOMPLICATED Qualifiers: Asthma severity: mild intermittent Asthma complication type: uncomplicated Qualified Code(s): J45.20 - Mild intermittent asthma, uncomplicated (5) GERD (gastroesophageal reflux disease) Code(s): K21.9 - GASTRO-ESOPHAGEAL REFLUX DISEASE WITHOUT ESOPHAGITIS (6) Cerebral palsy, quadriplegic Code(s): G80.8 - OTHER CEREBRAL PALSY (7) Hypothyroidism Code(s): E03.9 - HYPOTHYROIDISM, UNSPECIFIED (8) Mental retardation Code(s): F79 - UNSPECIFIED INTELLECTUAL DISABILITIES pseudomonas pna mrsa pna plan patient intubated and sedated continue iv abx suctioning rest as per icu continue to wean if possible rest as per team cc time 40 min
[2017-06-28] MEDS: PIPERACILLIN/TAZOB 4.5 GM 100 ML IVPB SCH ×3 (02:00→18:45)
[2017-06-28] MEDS: GABAPENTIN 100 MG CAPSULE (FP) GT SCH ×3 (06:37→21:05)
[2017-06-28] MEDS: LEVOTHYROXINE NA 50 MCG TABLET (FP) GT SCH (06:38)
[2017-06-28] MEDS: clonazePAM 0.5 MG TABLET GT SCH ×3 (06:38→21:06)
[2017-06-28] MEDS: GLYCOPYRROLATE 1 MG TABLET PO SCH ×3 (06:38→21:06)
[2017-06-28 06:48] LABS: MCH 36.4 pg (25.7-33.7); MCHC 33.7 g/dl (32.0-35.9); MEAN CELL VOLUME 107.9 fl (80-96); MEAN PLT VOLUME 8.2 fl (7.5-11.1); PLATELET COUNT 166 K/MM3 (134-434); RDW 16.1 % (11.9-15.9); WHITE BLOOD COUNT 3.7 K/mm3 (4.0-10.0)
[2017-06-28 07:13] LABS: ALBUMIN 1.9 g/dl (3.4-5.0); ANION GAP 6 (8-16); BILIRUBIN,TOTAL 0.4 mg/dL (0.2-1.0); CO2 38 mmol/L (21-32); GLUCOSE,RANDOM 91 mg/dL (74-106); MAGNESIUM 2.5 mg/dL (1.8-2.4); PHOSPHOROUS 3.6 mg/dL (2.5-4.9); SGOT/AST 42 U/L (15-37); SGPT/ALT 30 U/L (12-78)
[2017-06-28 07:14] LABS: ALK PHOS 237 U/L (45-117); CREATININE 0.7 mg/dL (0.7-1.3); TOT PROT 6.1 g/dl (6.4-8.2)
[2017-06-28] MEDS ORDERED: PT OWN MED DRAWER 7, Y5N ONE (07:59)
[2017-06-28] MEDS: RANITIDINE HCL 150 MG/10 ML UNIT-DOSE CUP PO SCH (09:51)
[2017-06-28] MEDS: LORATADINE 10 MG TABLET GT SCH (09:51)
[2017-06-28] MEDS: MUPIROCIN 2% TOPICAL OINTMENT FOR DECOLONIZATION NS SCH ×2 (09:53→21:10)
--- NOTE | 2017-06-28 11:05 | PN ---
Progress Note (short form) - Note Progress Note: PULMONARY/CCM Pt seen and examined in the ICU. Extubated yesterday, now on 50% ventimask saturating low 90s. +secretions. Last Vital Signs Temp Pulse Resp BP Pulse Ox 97 F L 69 18 97/59 92 L 06/28/17 06:00 06/28/17 08:00 06/28/17 08:40 06/28/17 08:00 06/28/17 08:40 Intake & Output 06/25/17 06/26/17 06/27/17 06/28/17 23:59 23:59 23:59 23:59 Intake Total 4625 3254 3230 724 Output Total 600 2900 5300 1300 Balance 4020 710 -6711 -945 Weight 129 lb 140 lb 5 oz 141 lb 7 oz 142 lb 8 oz Gen: mildly tachypneic at rest Heart: RRR Lung: scattered rhonchi Abd: soft, nontender Ext: + edema CBC, BMP 06/28/17 05:15 06/28/17 05:15 Active Medications Albuterol/Ipratropium (Duoneb -) 1 amp NEB Q4H PRN PRN Reason: SHORTNESS OF BREATH Artificial Tears (Artificial Tears) 1 drop OU BID PRN PRN Reason: DRY EYES Chlorhexidine Gluconate (Hibiclens For Decolonization -) 1 applic TP HS [facility] Last Admin: 06/27/17 21:46 Dose: 1 applic Clonazepam (Klonopin -) 0.5 mg GT TID [facility] Last Admin: 06/28/17 06:38 Dose: 0.5 mg Diazepam (Diastat Rectal Gel -) 12.5 mg RC PRN PRN PRN Reason: SEIZURE Gabapentin (Neurontin -) 200 mg GT TID [facility] Last Admin: 06/28/17 06:37 Dose: 200 mg Glycopyrrolate (Robinul -) 1 mg PO TID [facility] Last Admin: 06/28/17 06:38 Dose: 1 mg Vancomycin HCl 1,250 mg/ (Dextrose) 250 mls @ 250 mls/hr IVPB DAILY [facility] PRN Reason: Protocol Last Admin: 06/27/17 11:16 Dose: 250 mls/hr Piperacillin Sod/Tazobactam Sod (Zosyn 4.5gm Ivpb (Pre-Docked)) 100 mls @ 200 mls/hr IVPB Q8H-IV [facility] PRN Reason: Protocol Last Admin: 06/28/17 09:46 Dose: 200 mls/hr Lamotrigine (Lamictal -) 200 mg GT BID [facility] Last Admin: 06/27/17 21:47 Dose: 200 mg Levothyroxine Sodium (Synthroid -) 50 mcg GT DAILY@0700 [facility] Last Admin: 06/28/17 06:38 Dose: 50 mcg Loratadine (Claritin -) 10 mg GT DAILY [facility] Last Admin: 06/28/17 09:51 Dose: 10 mg Mupirocin (Bactroban Ointment (For Decolonization) -) 1 applic NS BID [facility] Stop: 06/29/17 21:59 Last Admin: 06/28/17 09:53 Dose: 1 applic Polyethylene Glycol (Miralax (For Daily Use) -) 17 gm PEG DAILY [facility] Last Admin: 06/27/17 09:26 Dose: 17 gm Ranitidine HCl (Zantac Oral Solution -) 150 mg PO DAILY [facility] Last Admin: 06/28/17 09:51 Dose: 150 mg Senna (Senna Oral Solution -) 17.6 mg PEG HS [facility] Last Admin: 06/27/17 21:48 Dose: 17.6 mg Topiramate (Topamax -) 25 mg NR BID [facility] Last Admin: 06/27/17 21:49 Dose: 25 mg Valproate Sodium (Depakene -) 375 mg GT BID [facility] Last Admin: 06/27/17 21:46 Dose: 375 mg A/P Acute Hypoxic on Chronic Respiratory Failure Pneumonia Mental Retardation Cerebral Palsy Seizure Disorder Asthma - continue antibiotics - aspiration precautions - inhaled bronchodilators - taper Fio2 to keep SpO2 >90% - antiepileptics - DVT prophylaxis - continue ICU monitoring critical care time spent in reviewing chart, evaluating patient and formulating plan 35 min
[2017-06-28] MEDS ORDERED: SCOPOLAMINE HYDROBROMIDE 1 PATCH PATCH.TD72 TD SCH (11:15)
[2017-06-28] MEDS: VALPROATE SODIUM 250 MG/5 ML UNIT DOSE CUP GT SCH ×2 (11:54→21:04)
[2017-06-28] MEDS: VANCOMYCIN 1,250 MG in DEXTROSE 5%-WATER - 250 ML IVPB SCH (11:56)
[2017-06-28] MEDS: TOPIRAMATE 25 MG TABLET (FP) NR SCH ×2 (12:00→21:07)
[2017-06-28 12:43] LABS: BURR CELLS 2+; MACROCYTOSIS 2+; POLYCHROMASIA 1+
[2017-06-28] MEDS: POLYETHYLENE GLYCOL 3350 119 GM BTL PEG SCH (15:45)
[2017-06-28] MEDS: lamoTRIgine 100 MG TABLET (FP) GT SCH ×2 (15:47→21:06)
--- NOTE | 2017-06-28 15:52 | PN ---
Progress Note (short form) - Note Progress Note: Subjective: The patient was extubated yesterday. Current Medications Generic Name Dose Route Start Last Admin Trade Name Freq PRN Reason Stop Dose Admin Albuterol/Ipratropium 1 amp 06/27/17 15:03 Duoneb - NEB Q4H PRN SHORTNESS OF BREATH Artificial Tears 1 drop 06/27/17 15:09 Artificial Tears OU BID PRN DRY EYES Chlorhexidine Gluconate 1 applic 06/24/17 22:00 06/27/17 21:46 Hibiclens For Decolonization - TP 1 applic HS [facility] Administration Clonazepam 0.5 mg 06/22/17 22:00 06/28/17 15:44 Klonopin - GT 0.5 mg TID [facility] Administration Diazepam 12.5 mg 06/27/17 09:23 Diastat Rectal Gel - RC PRN PRN SEIZURE Gabapentin 200 mg 06/22/17 22:00 06/28/17 15:44 Neurontin - GT 200 mg TID [facility] Administration Glycopyrrolate 1 mg 06/27/17 14:00 06/28/17 15:48 Robinul - PO 1 mg TID [facility] Administration Vancomycin HCl 1,250 mg/ 250 mls @ 250 mls/hr 06/25/17 17:30 06/28/17 11:56 Dextrose IVPB 250 mls/hr DAILY [facility] Administration Protocol Piperacillin Sod/Tazobactam Sod 100 mls @ 200 mls/hr 06/25/17 18:00 06/28/17 09 :46 Zosyn 4.5gm Ivpb (Pre-Docked) IVPB 200 mls/hr Q8H-IV [facility] Administration Protocol Lamotrigine 200 mg 06/22/17 22:00 06/28/17 15:47 Lamictal - GT 200 mg BID [facility] Administration Levothyroxine Sodium 50 mcg 06/23/17 07:00 06/28/17 06:38 Synthroid - GT 50 mcg DAILY@0700 [facility] Administration Loratadine 10 mg 06/23/17 10:00 06/28/17 09:51 Claritin - GT 10 mg DAILY [facility] Administration Mupirocin 1 applic 06/24/17 22:00 06/28/17 09:53 Bactroban Ointment (For Decolonization) - NS 06/29/17 21:59 1 applic BID [facility] Administration Polyethylene Glycol 17 gm 06/27/17 10:00 06/28/17 15:45 Miralax (For Daily Use) - PEG 17 gm DAILY [facility] Administration Ranitidine HCl 150 mg 06/27/17 10:00 06/28/17 09:51 Zantac Oral Solution - PO 150 mg DAILY [facility] Administration Scopolamine HBr 1 patch 06/28/17 11:15 06/28/17 15:45 Transderm-Scop - TD 1 patch Q72H [facility] Administration Senna 17.6 mg 06/27/17 22:00 06/27/17 21:48 Senna Oral Solution - PEG 17.6 mg HS [facility] Administration Topiramate 25 mg 06/22/17 22:00 06/28/17 12:00 Topamax - NR 25 mg BID [facility] Administration Valproate Sodium 375 mg 06/27/17 10:00 06/28/17 11:54 Depakene - GT 375 mg BID [facility] Administration Objective: Vital Signs Period Temp Pulse Resp BP Sys/Celestin Pulse Ox Last 24 Hr 97 F-98.7 F 65-86 18-20 89-114/46-75 92-92 Physical Exam: General: Intubated, sedated Lungs: Coarse b/l rhonchi Heart: RRR, S1S2 Abd: PEG in place. Normoactive bowel sounds Ext: Warm. 3+ pedal edema Neuro: sedated CBCD WBC 3.7 K/mm3 (4.0-10.0) L 06/28/17 05:15 RBC 2.11 M/mm3 (4.00-5.60) L 06/28/17 05:15 Hgb 7.7 GM/dL (11.7-16.9) L 06/28/17 05:15 Hct 22.7 % (35.4-49) L 06/28/17 05:15 MCV 107.9 fl (80-96) H 06/28/17 05:15 MCHC 33.7 g/dl (32.0-35.9) 06/28/17 05:15 RDW 16.1 % (11.9-15.9) H 06/28/17 05:15 Plt Count 166 K/MM3 (134-434) D 06/28/17 05:15 MPV 8.2 fl (7.5-11.1) 06/28/17 05:15 CMP Sodium 143 mmol/L (136-145) 06/28/17 05:15 Potassium 3.9 mmol/L (3.5-5.1) 06/28/17 05:15 Chloride 99 mmol/L (98-107) 06/28/17 05:15 Carbon Dioxide 38 mmol/L (21-32) H D 06/28/17 05:15 Anion Gap 6 (8-16) L 06/28/17 05:15 BUN 26 mg/dL (7-18) H 06/28/17 05:15 Creatinine 0.7 mg/dL (0.7-1.3) 06/28/17 05:15 Creat Clearance w eGFR > 60 (>60) 06/28/17 05:15 Random Glucose 91 mg/dL (74-106) 06/28/17 05:15 Calcium 9.0 mg/dL (8.5-10.1) 06/28/17 05:15 Total Bilirubin 0.4 mg/dL (0.2-1.0) 06/28/17 05:15 AST 42 U/L (15-37) H 06/28/17 05:15 ALT 30 U/L (12-78) 06/28/17 05:15 Alkaline Phosphatase 237 U/L (45-117) H 06/28/17 05:15 Total Protein 6.1 g/dl (6.4-8.2) L 06/28/17 05:15 Albumin 1.9 g/dl (3.4-5.0) L 06/28/17 05:15 CARDIAC ENZYMES Creatine Kinase 85 IU/L (39-308) 06/22/17 18:35 Troponin I < 0.02 ng/ml (0.00-0.05) 06/22/17 18:35 Microbiology 06/22/17 17:00 Blood - Peripheral Venous Blood Culture - Final NO GROWTH AFTER 5 DAYS INCUBATION 06/22/17 17:00 Blood - Peripheral Venous Blood Culture - Final NO GROWTH AFTER 5 DAYS INCUBATION 06/24/17 12:30 Sputum - Endotrachea Suction/Ventilator Gram Stain - Final 06/24/17 12:30 Sputum - Endotrachea Suction/Ventilator Sputum Culture - Final Staphylococcus Aureus Pseudomonas Aeruginosa 06/23/17 23:00 Urine - Urine - Catheterized Urine Culture - Final Escherichia Coli Assessment: This is a 46 year old male with PMHx of asthma, profound mental retardation, cerebral palsy, functional quadriplegia, recurrent epistaxis, seizure disorder, history of Katherine fundoplication (stomach wrapped to prevent reflux), s/p PEG, recurrent pneumonia, respiratory failure, oxygen dependent, sent from [facility] for upper respiratory congestion. Plan: 1) Pulmonary: Acute hypoxic, hypercapneic respiratory failure - Extubated on 06/27 - Duoneb q4h prn 2) ID: Septic shock 2/2 pneumonia - Off pressors, maintain MAP >65 - Continue Zosyn (06/22- ) - Continue Vancomycin (06/25- ) - Appreciate ID consult 3) Neuro: Seizure disorder - Continue Valproate - Continue Lamictal - Continue Topamax - Ativan prn - Appreciate neurology consult 4) Endocrine: hypothyroidism - Continue synthroid 5) Hematology: Chronic Anemia - Continue to trend 6) F/E/N: - Tube feeds - Monitor electrolytes 7) Prophylaxis: - SCDs bilaterally - Patient has history of bleeding with chemical dvt prophylaxis, will hold for now - Functional quadraplegia 8) Dispo: - Requires continued ICU care CODE STATUS: FULL CODE Visit type - Emergency Visit Emergency Visit: Yes ED Registration Date: 06/22/17 Care time: The patient presented to the Emergency Department on the above date and was hospitalized for further evaluation of their emergent condition. - New Patient This patient is new to me today: Yes Date on this admission: 06/28/17 - Critical Care Critical Care patient: Yes Total Critical Care Time (in minutes): 35 Critical Care Statement: The care of this patient involved high complexity decision making to prevent further life threatening deterioration of the patient 's condition and/or to evaluate & treat vital organ system(s) failure or risk of failure.
--- NOTE | 2017-06-28 17:40 | PN ---
Progress Note, Physician History of Present Illness: Pt extubated, alert, nonverbal. No distress noted. - Current Medication List Current Medications: Active Medications Albuterol/Ipratropium (Duoneb -) 1 amp NEB Q4H PRN PRN Reason: SHORTNESS OF BREATH Artificial Tears (Artificial Tears) 1 drop OU BID PRN PRN Reason: DRY EYES Chlorhexidine Gluconate (Hibiclens For Decolonization -) 1 applic TP HS [facility] Last Admin: 06/27/17 21:46 Dose: 1 applic Clonazepam (Klonopin -) 0.5 mg GT TID [facility] Last Admin: 06/28/17 15:44 Dose: 0.5 mg Diazepam (Diastat Rectal Gel -) 12.5 mg RC PRN PRN PRN Reason: SEIZURE Gabapentin (Neurontin -) 200 mg GT TID [facility] Last Admin: 06/28/17 15:44 Dose: 200 mg Glycopyrrolate (Robinul -) 1 mg PO TID [facility] Last Admin: 06/28/17 15:48 Dose: 1 mg Vancomycin HCl 1,250 mg/ (Dextrose) 250 mls @ 250 mls/hr IVPB DAILY [facility] PRN Reason: Protocol Last Admin: 06/28/17 11:56 Dose: 250 mls/hr Piperacillin Sod/Tazobactam Sod (Zosyn 4.5gm Ivpb (Pre-Docked)) 100 mls @ 200 mls/hr IVPB Q8H-IV [facility] PRN Reason: Protocol Last Admin: 06/28/17 09:46 Dose: 200 mls/hr Lamotrigine (Lamictal -) 200 mg GT BID [facility] Last Admin: 06/28/17 15:47 Dose: 200 mg Levothyroxine Sodium (Synthroid -) 50 mcg GT DAILY@0700 [facility] Last Admin: 06/28/17 06:38 Dose: 50 mcg Loratadine (Claritin -) 10 mg GT DAILY [facility] Last Admin: 06/28/17 09:51 Dose: 10 mg Mupirocin (Bactroban Ointment (For Decolonization) -) 1 applic NS BID [facility] Stop: 06/29/17 21:59 Last Admin: 06/28/17 09:53 Dose: 1 applic Polyethylene Glycol (Miralax (For Daily Use) -) 17 gm PEG DAILY [facility] Last Admin: 06/28/17 15:45 Dose: 17 gm Ranitidine HCl (Zantac Oral Solution -) 150 mg PO DAILY [facility] Last Admin: 06/28/17 09:51 Dose: 150 mg Scopolamine HBr (Transderm-Scop -) 1 patch TD Q72H [facility] Last Admin: 06/28/17 15:45 Dose: 1 patch Senna (Senna Oral Solution -) 17.6 mg PEG HS [facility] Last Admin: 06/27/17 21:48 Dose: 17.6 mg Topiramate (Topamax -) 25 mg NR BID [facility] Last Admin: 06/28/17 12:00 Dose: 25 mg Valproate Sodium (Depakene -) 375 mg GT BID [facility] Last Admin: 06/28/17 11:54 Dose: 375 mg - Objective Vital Signs: Vital Signs Temperature 98.5 F 06/28/17 14:00 Pulse Rate 68 06/28/17 16:00 Respiratory Rate 18 06/28/17 16:00 Blood Pressure 94/51 06/28/17 16:00 O2 Sat by Pulse Oximetry (%) 92 L 06/28/17 12:45 Constitutional: Yes: No Distress HENT: Yes: WNL Cardiovascular: Yes: Regular Rate and Rhythm Respiratory: Yes: Rhonchi (b/l, R>L) Gastrointestinal: Yes: Normal Bowel Sounds, Soft Extremities: Yes: WNL Integumentary: Yes: WNL Neurological: Yes: Alert Labs: CBC, BMP 06/28/17 05:15 06/28/17 05:15 Microbiology 06/22/17 17:00 Blood Culture - Final Blood - Peripheral Venous NO GROWTH AFTER 5 DAYS INCUBATION 06/22/17 17:00 Blood Culture - Final Blood - Peripheral Venous NO GROWTH AFTER 5 DAYS INCUBATION - ....Imaging Chest X-ray: Report Reviewed (Decreased congestion, rt basilar infiltrate) Problem List - Problems (1) Aspiration pneumonia Code(s): J69.0 - PNEUMONITIS DUE TO INHALATION OF FOOD AND VOMIT (2) Pneumonia Code(s): J18.9 - PNEUMONIA, UNSPECIFIED ORGANISM Qualifiers: Pneumonia type: due to unspecified organism Laterality: right Lung location: unspecified part of lung Qualified Code(s): J18.9 - Pneumonia, unspecified organism (3) Cerebral palsy, quadriplegic Code(s): G80.8 - OTHER CEREBRAL PALSY (4) Mental retardation Code(s): F79 - UNSPECIFIED INTELLECTUAL DISABILITIES (5) Seizure disorder Code(s): G40.909 - EPILEPSY, UNSP, NOT INTRACTABLE, WITHOUT STATUS EPILEPTICUS (6) Acute respiratory failure Code(s): J96.00 - ACUTE RESPIRATORY FAILURE, UNSP W HYPOXIA OR HYPERCAPNIA Assessment/Plan Pt extubated, afebrile - continue current antibiotics - monitor closely rest of care per ICU pt examined, labs reviewed, imaging reviewed cc time 40 min
[2017-06-28] MEDS: SENNOSIDES 8.8 MG/5 ML BULK BOTTLE PEG SCH (21:03)
[2017-06-28] MEDS: CHLORHEXIDINE GLUCONATE 4% CLEANSER FOR DECOLONIZATION TP SCH (21:06)
[2017-06-29] MEDS: PIPERACILLIN/TAZOB 4.5 GM 100 ML IVPB SCH ×3 (03:34→17:32)
[2017-06-29] MEDS: clonazePAM 0.5 MG TABLET GT SCH ×3 (05:02→21:41)
[2017-06-29] MEDS: GABAPENTIN 100 MG CAPSULE (FP) GT SCH ×3 (05:02→21:41)
[2017-06-29] MEDS: GLYCOPYRROLATE 1 MG TABLET PO SCH ×3 (05:03→21:41)
[2017-06-29] MEDS: LEVOTHYROXINE NA 50 MCG TABLET (FP) GT SCH (06:12)
[2017-06-29 06:36] LABS: MCH 36.6 pg (25.7-33.7); MCHC 33.3 g/dl (32.0-35.9); MEAN CELL VOLUME 109.6 fl (80-96); MEAN PLT VOLUME 7.7 fl (7.5-11.1); PLATELET COUNT 196 K/MM3 (134-434); RDW 16.7 % (11.9-15.9); WHITE BLOOD COUNT 5.9 K/mm3 (4.0-10.0)
[2017-06-29 06:51] LABS: ALBUMIN 2.1 g/dl (3.4-5.0); ANION GAP 3 (8-16); CALCIUM 9.5 mg/dL (8.5-10.1); CO2 39 mmol/L (21-32); GLUCOSE,RANDOM 75 mg/dL (74-106); MAGNESIUM 2.1 mg/dL (1.8-2.4)
[2017-06-29 06:55] LABS: ALK PHOS 246 U/L (45-117); BILIRUBIN,TOTAL 0.4 mg/dL (0.2-1.0); CREATININE 0.6 mg/dL (0.7-1.3); PHOSPHOROUS 3.8 mg/dL (2.5-4.9); SGOT/AST 42 U/L (15-37); SGPT/ALT 32 U/L (12-78); TOT PROT 6.6 g/dl (6.4-8.2)
[2017-06-29] MEDS ORDERED: PT OWN MED DRAWER 7, Y5N ONE (07:17)
[2017-06-29] MEDS: RANITIDINE HCL 150 MG/10 ML UNIT-DOSE CUP PO SCH (09:12)
[2017-06-29] MEDS: lamoTRIgine 100 MG TABLET (FP) GT SCH ×2 (09:13→21:40)
[2017-06-29] MEDS: POLYETHYLENE GLYCOL 3350 119 GM BTL PEG SCH (09:13)
[2017-06-29] MEDS: TOPIRAMATE 25 MG TABLET (FP) NR SCH ×2 (09:13→21:41)
[2017-06-29] MEDS: VALPROATE SODIUM 250 MG/5 ML UNIT DOSE CUP GT SCH ×2 (09:14→21:40)
[2017-06-29] MEDS: LORATADINE 10 MG TABLET GT SCH (09:17)
[2017-06-29] MEDS: MUPIROCIN 2% TOPICAL OINTMENT FOR DECOLONIZATION NS SCH (09:21)
--- NOTE | 2017-06-29 10:11 | PN ---
Progress Note (short form) - Note Progress Note: PULMONARY/CCM Pt seen and examined in the ICU. Remains extubated, saturating well on nasal cannula. Less secretions with scopolamine patch. Last Vital Signs Temp Pulse Resp BP Pulse Ox 97.6 F 63 21 105/58 93 L 06/29/17 06:00 06/29/17 06:00 06/29/17 07:59 06/29/17 06:00 06/29/17 07:59 Intake & Output 06/26/17 06/27/17 06/28/17 06/29/17 23:59 23:59 23:59 23:59 Intake Total 3254 3230 1798 724 Output Total 2900 5300 3175 900 Balance 019 -5182 -7807 -472 Weight 140 lb 5 oz 141 lb 7 oz 142 lb 8 oz 126 lb 11.2 oz Gen: mildly tachypneic at rest Heart: RRR Lung: scattered rhonchi Abd: soft, nontender Ext: + edema CBC, BMP 06/29/17 05:15 06/29/17 05:15 Active Medications Albuterol/Ipratropium (Duoneb -) 1 amp NEB Q4H PRN PRN Reason: SHORTNESS OF BREATH Artificial Tears (Artificial Tears) 1 drop OU BID PRN PRN Reason: DRY EYES Chlorhexidine Gluconate (Hibiclens For Decolonization -) 1 applic TP HS [facility] Last Admin: 06/28/17 21:06 Dose: 1 applic Clonazepam (Klonopin -) 0.5 mg GT TID [facility] Last Admin: 06/29/17 05:02 Dose: 0.5 mg Diazepam (Diastat Rectal Gel -) 12.5 mg RC PRN PRN PRN Reason: SEIZURE Gabapentin (Neurontin -) 200 mg GT TID [facility] Last Admin: 06/29/17 05:02 Dose: 200 mg Glycopyrrolate (Robinul -) 1 mg PO TID [facility] Last Admin: 06/29/17 05:03 Dose: 1 mg Vancomycin HCl 1,250 mg/ (Dextrose) 250 mls @ 250 mls/hr IVPB DAILY [facility] PRN Reason: Protocol Last Admin: 06/28/17 11:56 Dose: 250 mls/hr Piperacillin Sod/Tazobactam Sod (Zosyn 4.5gm Ivpb (Pre-Docked)) 100 mls @ 200 mls/hr IVPB Q8H-IV [facility] PRN Reason: Protocol Last Admin: 06/29/17 03:34 Dose: 200 mls/hr Lamotrigine (Lamictal -) 200 mg GT BID [facility] Last Admin: 06/29/17 09:13 Dose: 200 mg Levothyroxine Sodium (Synthroid -) 50 mcg GT DAILY@0700 [facility] Last Admin: 06/29/17 06:12 Dose: 50 mcg Loratadine (Claritin -) 10 mg GT DAILY [facility] Last Admin: 06/29/17 09:17 Dose: 10 mg Mupirocin (Bactroban Ointment (For Decolonization) -) 1 applic NS BID [facility] Stop: 06/29/17 21:59 Last Admin: 06/29/17 09:21 Dose: 1 applic Polyethylene Glycol (Miralax (For Daily Use) -) 17 gm PEG DAILY [facility] Last Admin: 06/29/17 09:13 Dose: 17 gm Ranitidine HCl (Zantac Oral Solution -) 150 mg PO DAILY [facility] Last Admin: 06/29/17 09:12 Dose: 150 mg Scopolamine HBr (Transderm-Scop -) 1 patch TD Q72H [facility] Last Admin: 06/28/17 15:45 Dose: 1 patch Senna (Senna Oral Solution -) 17.6 mg PEG HS [facility] Last Admin: 06/28/17 21:03 Dose: 17.6 mg Topiramate (Topamax -) 25 mg NR BID [facility] Last Admin: 06/29/17 09:13 Dose: 25 mg Valproate Sodium (Depakene -) 375 mg GT BID [facility] Last Admin: 06/29/17 09:14 Dose: 375 mg A/P Acute Hypoxic on Chronic Respiratory Failure Pneumonia Mental Retardation Cerebral Palsy Seizure Disorder Asthma - continue antibiotics - aspiration precautions - inhaled bronchodilators - taper Fio2 to keep SpO2 >90% - antiepileptics, seizure precautions - DVT prophylaxis - continue ICU monitoring critical care time spent in reviewing chart, evaluating patient and formulating plan 35 min
[2017-06-29] MEDS: VANCOMYCIN 1,250 MG in DEXTROSE 5%-WATER - 250 ML IVPB SCH (10:32)
--- NOTE | 2017-06-29 17:08 | PN ---
Progress Note (short form) - Note Progress Note: Subjective: The patient was seen and examined at the bedside, still with cough Current Medications Generic Name Dose Route Start Last Admin Trade Name Freq PRN Reason Stop Dose Admin Albuterol/Ipratropium 1 amp 06/27/17 15:03 Duoneb - NEB Q4H PRN SHORTNESS OF BREATH Artificial Tears 1 drop 06/27/17 15:09 Artificial Tears OU BID PRN DRY EYES Chlorhexidine Gluconate 1 applic 06/24/17 22:00 06/28/17 21:06 Hibiclens For Decolonization - TP 1 applic HS [facility] Administration Clonazepam 0.5 mg 06/22/17 22:00 06/29/17 14:18 Klonopin - GT 0.5 mg TID [facility] Administration Diazepam 12.5 mg 06/27/17 09:23 Diastat Rectal Gel - RC PRN PRN SEIZURE Gabapentin 200 mg 06/22/17 22:00 06/29/17 14:18 Neurontin - GT 200 mg TID [facility] Administration Glycopyrrolate 1 mg 06/27/17 14:00 06/29/17 14:19 Robinul - PO 1 mg TID [facility] Administration Vancomycin HCl 1,250 mg/ 250 mls @ 250 mls/hr 06/25/17 17:30 06/29/17 10:32 Dextrose IVPB 250 mls/hr DAILY [facility] Administration Protocol Piperacillin Sod/Tazobactam Sod 100 mls @ 200 mls/hr 06/25/17 18:00 06/29/17 11 :00 Zosyn 4.5gm Ivpb (Pre-Docked) IVPB 200 mls/hr Q8H-IV [facility] Administration Protocol Lamotrigine 200 mg 06/22/17 22:00 06/29/17 09:13 Lamictal - GT 200 mg BID [facility] Administration Levothyroxine Sodium 50 mcg 06/23/17 07:00 06/29/17 06:12 Synthroid - GT 50 mcg DAILY@0700 [facility] Administration Loratadine 10 mg 06/23/17 10:00 06/29/17 09:17 Claritin - GT 10 mg DAILY [facility] Administration Mupirocin 1 applic 06/24/17 22:00 06/29/17 09:21 Bactroban Ointment (For Decolonization) - NS 06/29/17 21:59 1 applic BID [facility] Administration Polyethylene Glycol 17 gm 06/27/17 10:00 06/29/17 09:13 Miralax (For Daily Use) - PEG 17 gm DAILY [facility] Administration Ranitidine HCl 150 mg 06/27/17 10:00 06/29/17 09:12 Zantac Oral Solution - PO 150 mg DAILY [facility] Administration Scopolamine HBr 1 patch 06/28/17 11:15 06/28/17 15:45 Transderm-Scop - TD 1 patch Q72H [facility] Administration Senna 17.6 mg 06/27/17 22:00 06/28/17 21:03 Senna Oral Solution - PEG 17.6 mg HS [facility] Administration Topiramate 25 mg 06/22/17 22:00 06/29/17 09:13 Topamax - NR 25 mg BID [facility] Administration Valproate Sodium 375 mg 06/27/17 10:00 06/29/17 09:14 Depakene - GT 375 mg BID [facility] Administration Objective: Vital Signs Period Temp Pulse Resp BP Sys/Celestin Pulse Ox Last 24 Hr 97.5 F-98 F 60-72 16-22 98-114/55-74 93-93 Physical Exam: General: Intubated, sedated Lungs: Coarse b/l rhonchi Heart: RRR, S1S2 Abd: PEG in place. Normoactive bowel sounds Ext: Warm. 3+ pedal edema Neuro: sedated CBCD WBC 5.9 K/mm3 (4.0-10.0) D 06/29/17 05:15 RBC 2.24 M/mm3 (4.00-5.60) L 06/29/17 05:15 Hgb 8.2 GM/dL (11.7-16.9) L 06/29/17 05:15 Hct 24.5 % (35.4-49) L 06/29/17 05:15 MCV 109.6 fl (80-96) H 06/29/17 05:15 MCHC 33.3 g/dl (32.0-35.9) 06/29/17 05:15 RDW 16.7 % (11.9-15.9) H 06/29/17 05:15 Plt Count 196 K/MM3 (134-434) 06/29/17 05:15 MPV 7.7 fl (7.5-11.1) 06/29/17 05:15 CMP Sodium 140 mmol/L (136-145) 06/29/17 05:15 Potassium 3.9 mmol/L (3.5-5.1) 06/29/17 05:15 Chloride 98 mmol/L (98-107) 06/29/17 05:15 Carbon Dioxide 39 mmol/L (21-32) H 06/29/17 05:15 Anion Gap 3 (8-16) L 06/29/17 05:15 BUN 21 mg/dL (7-18) H 06/29/17 05:15 Creatinine 0.6 mg/dL (0.7-1.3) L 06/29/17 05:15 Creat Clearance w eGFR > 60 (>60) 06/29/17 05:15 Random Glucose 75 mg/dL (74-106) 06/29/17 05:15 Calcium 9.5 mg/dL (8.5-10.1) 06/29/17 05:15 Total Bilirubin 0.4 mg/dL (0.2-1.0) 06/29/17 05:15 AST 42 U/L (15-37) H 06/29/17 05:15 ALT 32 U/L (12-78) 06/29/17 05:15 Alkaline Phosphatase 246 U/L (45-117) H 06/29/17 05:15 Total Protein 6.6 g/dl (6.4-8.2) 06/29/17 05:15 Albumin 2.1 g/dl (3.4-5.0) L 06/29/17 05:15 CARDIAC ENZYMES Creatine Kinase 85 IU/L (39-308) 06/22/17 18:35 Troponin I < 0.02 ng/ml (0.00-0.05) 06/22/17 18:35 Microbiology 06/22/17 17:00 Blood - Peripheral Venous Blood Culture - Final NO GROWTH AFTER 5 DAYS INCUBATION 06/22/17 17:00 Blood - Peripheral Venous Blood Culture - Final NO GROWTH AFTER 5 DAYS INCUBATION 06/24/17 12:30 Sputum - Endotrachea Suction/Ventilator Gram Stain - Final 06/24/17 12:30 Sputum - Endotrachea Suction/Ventilator Sputum Culture - Final Staphylococcus Aureus Pseudomonas Aeruginosa 06/23/17 23:00 Urine - Urine - Catheterized Urine Culture - Final Escherichia Coli Assessment: This is a 46 year old male with PMHx of asthma, profound mental retardation, cerebral palsy, functional quadriplegia, recurrent epistaxis, seizure disorder, history of Katherine fundoplication (stomach wrapped to prevent reflux), s/p PEG, recurrent pneumonia, respiratory failure, oxygen dependent, sent from [facility] for upper respiratory congestion. Plan: 1) Pulmonary: Acute hypoxic, hypercapneic respiratory failure - Extubated on 06/27 - Duoneb q4h prn 2) ID: Septic shock 2/2 pneumonia - Off pressors, maintain MAP >65 - Continue Zosyn (06/22- ) - Continue Vancomycin (06/25- ) - Appreciate ID consult 3) Neuro: Seizure disorder - Continue Valproate - Continue Lamictal - Continue Topamax - Ativan prn - Appreciate neurology consult 4) Endocrine: hypothyroidism - Continue synthroid 5) Hematology: Chronic Anemia - Continue to trend 6) F/E/N: - Tube feeds - Monitor electrolytes 7) Prophylaxis: - SCDs bilaterally - Patient has history of bleeding with chemical dvt prophylaxis, will hold for now - Functional quadraplegia 8) Dispo: - Requires continued ICU care CODE STATUS: FULL CODE Visit type - Emergency Visit Emergency Visit: Yes ED Registration Date: 06/22/17 Care time: The patient presented to the Emergency Department on the above date and was hospitalized for further evaluation of their emergent condition. - New Patient This patient is new to me today: Yes Date on this admission: 06/29/17 - Critical Care Critical Care patient: No
--- NOTE | 2017-06-29 18:32 | PN ---
Progress Note, Physician History of Present Illness: Pt remains alert, nonverbal, without distress. No new events noted. - Current Medication List Current Medications: Active Medications Albuterol/Ipratropium (Duoneb -) 1 amp NEB Q4H PRN PRN Reason: SHORTNESS OF BREATH Last Admin: 06/29/17 17:14 Dose: 1 amp Artificial Tears (Artificial Tears) 1 drop OU BID PRN PRN Reason: DRY EYES Chlorhexidine Gluconate (Hibiclens For Decolonization -) 1 applic TP HS [facility] Last Admin: 06/28/17 21:06 Dose: 1 applic Clonazepam (Klonopin -) 0.5 mg GT TID [facility] Last Admin: 06/29/17 14:18 Dose: 0.5 mg Diazepam (Diastat Rectal Gel -) 12.5 mg RC PRN PRN PRN Reason: SEIZURE Gabapentin (Neurontin -) 200 mg GT TID [facility] Last Admin: 06/29/17 14:18 Dose: 200 mg Glycopyrrolate (Robinul -) 1 mg PO TID [facility] Last Admin: 06/29/17 14:19 Dose: 1 mg Vancomycin HCl 1,250 mg/ (Dextrose) 250 mls @ 250 mls/hr IVPB DAILY [facility] PRN Reason: Protocol Last Admin: 06/29/17 10:32 Dose: 250 mls/hr Piperacillin Sod/Tazobactam Sod (Zosyn 4.5gm Ivpb (Pre-Docked)) 100 mls @ 200 mls/hr IVPB Q8H-IV [facility] PRN Reason: Protocol Last Admin: 06/29/17 17:32 Dose: 200 mls/hr Lamotrigine (Lamictal -) 200 mg GT BID [facility] Last Admin: 06/29/17 09:13 Dose: 200 mg Levothyroxine Sodium (Synthroid -) 50 mcg GT DAILY@0700 [facility] Last Admin: 06/29/17 06:12 Dose: 50 mcg Loratadine (Claritin -) 10 mg GT DAILY [facility] Last Admin: 06/29/17 09:17 Dose: 10 mg Mupirocin (Bactroban Ointment (For Decolonization) -) 1 applic NS BID [facility] Stop: 06/29/17 21:59 Last Admin: 06/29/17 09:21 Dose: 1 applic Polyethylene Glycol (Miralax (For Daily Use) -) 17 gm PEG DAILY [facility] Last Admin: 06/29/17 09:13 Dose: 17 gm Ranitidine HCl (Zantac Oral Solution -) 150 mg PO DAILY [facility] Last Admin: 06/29/17 09:12 Dose: 150 mg Scopolamine HBr (Transderm-Scop -) 1 patch TD Q72H [facility] Last Admin: 06/28/17 15:45 Dose: 1 patch Senna (Senna Oral Solution -) 17.6 mg PEG HS [facility] Last Admin: 06/28/17 21:03 Dose: 17.6 mg Topiramate (Topamax -) 25 mg NR BID [facility] Last Admin: 06/29/17 09:13 Dose: 25 mg Valproate Sodium (Depakene -) 375 mg GT BID [facility] Last Admin: 06/29/17 09:14 Dose: 375 mg - Objective Vital Signs: Vital Signs Temperature 97.5 F L 06/29/17 12:00 Pulse Rate 60 06/29/17 16:00 Respiratory Rate 22 06/29/17 16:00 Blood Pressure 110/68 06/29/17 16:00 O2 Sat by Pulse Oximetry (%) 93 L 06/29/17 07:59 Constitutional: Yes: No Distress HENT: Yes: Atraumatic Neck: Yes: Supple Cardiovascular: Yes: Regular Rate and Rhythm (coarse breath sounds) Respiratory: Yes: Other Gastrointestinal: Yes: Normal Bowel Sounds, Soft, Other (peg) Genitourinary: Yes: WNL Integumentary: Yes: WNL Labs: CBC, BMP 06/29/17 05:15 06/29/17 05:15 Problem List - Problems (1) Aspiration pneumonia Code(s): J69.0 - PNEUMONITIS DUE TO INHALATION OF FOOD AND VOMIT (2) Pneumonia Code(s): J18.9 - PNEUMONIA, UNSPECIFIED ORGANISM Qualifiers: Pneumonia type: due to unspecified organism Laterality: right Lung location: unspecified part of lung Qualified Code(s): J18.9 - Pneumonia, unspecified organism (3) Cerebral palsy, quadriplegic Code(s): G80.8 - OTHER CEREBRAL PALSY (4) Mental retardation Code(s): F79 - UNSPECIFIED INTELLECTUAL DISABILITIES (5) Seizure disorder Code(s): G40.909 - EPILEPSY, UNSP, NOT INTRACTABLE, WITHOUT STATUS EPILEPTICUS (6) Acute respiratory failure Code(s): J96.00 - ACUTE RESPIRATORY FAILURE, UNSP W HYPOXIA OR HYPERCAPNIA Assessment/Plan Seen and examined. Notes/labs reviewed Pt remains the same, s/p expiration No obvious distress keep head of bed elevated continue current antibiotics for now cc time 40 min
[2017-06-29] MEDS: CHLORHEXIDINE GLUCONATE 4% CLEANSER FOR DECOLONIZATION TP SCH (21:40)
[2017-06-29] MEDS: SENNOSIDES 8.8 MG/5 ML BULK BOTTLE PEG SCH (21:42)
[2017-06-30] MEDS: PIPERACILLIN/TAZOB 4.5 GM 100 ML IVPB SCH ×3 (02:59→18:14)
[2017-06-30] MEDS: GABAPENTIN 100 MG CAPSULE (FP) GT SCH ×3 (06:32→22:25)
[2017-06-30] MEDS: GLYCOPYRROLATE 1 MG TABLET PO SCH ×2 (06:32→16:58)
[2017-06-30] MEDS: LEVOTHYROXINE NA 50 MCG TABLET (FP) GT SCH (06:32)
[2017-06-30 06:48] LABS: BASOPHIL 0.4 % (0-2.0); EOSINOPHIL 3.9 % (0-4.5); MCH 36.2 pg (25.7-33.7); MCHC 33.2 g/dl (32.0-35.9); MEAN CELL VOLUME 108.9 fl (80-96); MEAN PLT VOLUME 7.5 fl (7.5-11.1); NEUTROPHILS 29.8 % (42.8-82.8); PLATELET COUNT 220 K/MM3 (134-434); RDW 16.2 % (11.9-15.9); WHITE BLOOD COUNT 4.7 K/mm3 (4.0-10.0)
[2017-06-30 07:23] LABS: ANION GAP 6 (8-16); BILIRUBIN,TOTAL 0.5 mg/dL (0.2-1.0); CALCIUM 9.4 mg/dL (8.5-10.1); CO2 40 mmol/L (21-32); CREATININE 0.6 mg/dL (0.7-1.3); GLUCOSE,RANDOM 60 mg/dL (74-106); MAGNESIUM 1.9 mg/dL (1.8-2.4); PHOSPHOROUS 5.4 mg/dL (2.5-4.9); SGOT/AST 27 U/L (15-37); SGPT/ALT 27 U/L (12-78); TOT PROT 6.5 g/dl (6.4-8.2)
[2017-06-30 07:24] LABS: ALK PHOS 240 U/L (45-117)
--- NOTE | 2017-06-30 09:06 | PN ---
Physical Exam: SUBJECTIVE: Patient seen and examined in the ICU. Non verbal at baseline. OBJECTIVE: On nasal cannula, hypothermic at 95.5F Appears comfortable at rest, no dyspnea on exam Vital Signs Period Temp Pulse Resp BP Sys/Celestin Pulse Ox Last 24 Hr 96.2 F-97.5 F 57-68 12-22 90-148/46-72 96 GENERAL: Awake, alert, non verbal at baseline, brief eye contact LUNGS: diminished lung sounds, some scattered rhonchi in anterior chest, in not acute respiratory distress ABDOMEN: +peg tube UPPER EXTREMITIES: No peripheral edema. LOWER EXTREMITIES: non pitting edema on bilateral feet NEUROLOGICAL: awake, alert Laboratory Results - last 24 hr 06/30/17 06/30/17 05:20 05:20 WBC 4.7 RBC 2.31 L Hgb 8.4 L Hct 25.2 L MCV 108.9 H MCH 36.2 H MCHC 33.2 RDW 16.2 H Plt Count 220 MPV 7.5 Neutrophils % 29.8 L Lymphocytes % 55.1 H D Monocytes % 10.8 H Eosinophils % 3.9 Basophils % 0.4 Sodium 143 Potassium 3.9 Chloride 97 L Carbon Dioxide 40 H Anion Gap 6 L BUN 17 Creatinine 0.6 L Creat Clearance w eGFR > 60 Random Glucose 60 L Calcium 9.4 Phosphorus 5.4 H D Magnesium 1.9 Total Bilirubin 0.5 D AST 27 D ALT 27 Alkaline Phosphatase 240 H Total Protein 6.5 Albumin 2.0 L Active Medications Generic Name Dose Route Start Last Admin Trade Name Freq PRN Reason Stop Dose Admin Albuterol/Ipratropium 1 amp 06/27/17 15:03 06/29/17 17:14 Duoneb - NEB 1 amp Q4H PRN Administration SHORTNESS OF BREATH Artificial Tears 1 drop 06/27/17 15:09 Artificial Tears OU BID PRN DRY EYES Chlorhexidine Gluconate 1 applic 06/24/17 22:00 06/29/17 21:40 Hibiclens For Decolonization - TP 1 applic HS GILL Administration Diazepam 12.5 mg 06/27/17 09:23 Diastat Rectal Gel - RC PRN PRN SEIZURE Gabapentin 200 mg 06/22/17 22:00 06/30/17 06:32 Neurontin - GT 200 mg TID GILL Administration Glycopyrrolate 1 mg 06/27/17 14:00 06/30/17 06:32 Robinul - PO 1 mg TID GILL Administration Vancomycin HCl 1,250 mg/ 250 mls @ 250 mls/hr 06/25/17 17:30 06/29/17 10:32 Dextrose IVPB 250 mls/hr DAILY GILL Administration Protocol Piperacillin Sod/Tazobactam Sod 100 mls @ 200 mls/hr 06/25/17 18:00 06/30/17 02 :59 Zosyn 4.5gm Ivpb (Pre-Docked) IVPB 200 mls/hr Q8H-IV GILL Administration Protocol Lamotrigine 200 mg 06/22/17 22:00 06/29/17 21:40 Lamictal - GT 200 mg BID GILL Administration Levothyroxine Sodium 50 mcg 06/23/17 07:00 06/30/17 06:32 Synthroid - GT 50 mcg DAILY@0700 GILL Administration Loratadine 10 mg 06/23/17 10:00 06/29/17 09:17 Claritin - GT 10 mg DAILY GILL Administration Polyethylene Glycol 17 gm 06/27/17 10:00 06/29/17 09:13 Miralax (For Daily Use) - PEG 17 gm DAILY GILL Administration Ranitidine HCl 150 mg 06/27/17 10:00 06/29/17 09:12 Zantac Oral Solution - PO 150 mg DAILY GILL Administration Scopolamine HBr 1 patch 06/28/17 11:15 06/28/17 15:45 Transderm-Scop - TD 1 patch Q72H GILL Administration Senna 17.6 mg 06/27/17 22:00 06/29/17 21:42 Senna Oral Solution - PEG 17.6 mg HS GILL Administration Topiramate 25 mg 06/22/17 22:00 06/29/17 21:41 Topamax - NR 25 mg BID GILL Administration Valproate Sodium 375 mg 06/27/17 10:00 06/29/17 21:40 Depakene - GT 375 mg BID GILL Administration ASSESSMENT/PLAN: Patient is a 46 year old male with a significant past medical history of asthma , profound mental retardation, cerebral palsy, functional quadriplegia, recurrent epistaxis, seizure disorder, history of Katherine fundoplication ( stomach wrapped to prevent reflux), s/p PEG, recurrent pneumonia, respiratory failure, oxygen dependent, sent from [facility] for upper respiratory congestion and difficulty breathing. ID: Septic Shock likely 2/2 to Aspiration pnemonia, vs HCAP/upper respiratory infection with respiratory Failure - improved A/P: Much improved, now on nasal cannula with sats in the high 90s, extubated on 06/27 Continues on Zosyn (06/25- )and Vancomycin (06/25- ) ID following Hypothermic today 95.5F, BP 90/50s, off pressors On duonebs Chest xray 06/30 shows large pleural effusion with compressive atelectasis, airspace opacities noted in upper lobes Pulmonary following Neurology: Seizure disorder - chronic A/P: On admission patient presented with dry blood on oral cavity with tongue laceration Likely had a seizure which may have caused him to aspirate Continue home anti-seizure medications Ativan added for any seizure episodes Neuro notes reviewed Neuro following Endocrine: Hypothyroidism - chronic A/P: On Synthroid TSH within normal limits Cerebral Palsy/Qudriplegic - chronic A/P: Turn and position Dependent on all ADLs Hematology: Thrombocytopenia - resolved A/P: monitor with CBC in a.m. Anemia - stable A/P; low h/h, low stable, monitor F.E.N. Fluids: tolerating tube feeds Electrolytes: monitor DVT Proph: DVT: SCDs GI: Protonix ivpb Disposition: Full Code. Code status confirmed with [facility] instruments supervisor. Visit type - Emergency Visit Emergency Visit: Yes ED Registration Date: 06/22/17 Care time: The patient presented to the Emergency Department on the above date and was hospitalized for further evaluation of their emergent condition. - New Patient This patient is new to me today: No - Critical Care Critical Care patient: Yes Total Critical Care Time (in minutes): 60 Critical Care Statement: The care of this patient involved high complexity decision making to prevent further life threatening deterioration of the patient 's condition and/or to evaluate & treat vital organ system(s) failure or risk of failure. - Discharge Referral Referred to [facility] Med P.C.: No
--- NOTE | 2017-06-30 09:06 | PN ---
Physical Exam: SUBJECTIVE: Patient seen and examined at bed side this morning. Extubated last friday. No acute overnight events. OBJECTIVE: Vital Signs Period Temp Pulse Resp BP Sys/Celestin Pulse Ox Last 24 Hr 96.2 F-97.5 F 57-68 12-22 90-148/46-72 96 GENERAL: The patient is awake, alert, non verbal at baseling, in no acute distress. HEAD: Normal with no signs of trauma. EYES: PERRL, No pallor or icterus.. ENT: Ears normal, moist mucous membranes. NECK: Supple. LUNGS: B/L coarse breath sounds equal, no wheezes, no accessory muscle use. HEART: Regular rate and rhythm, S1, S2 with soft systolic murmur. ABDOMEN: PEG tube in place, Soft, nontender, nondistended, normoactive bowel sounds, no guarding, no rebound, no hepatosplenomegaly, no masses. EXTREMITIES: Contracted 2+ pulses, warm, well-perfused, no edema. NEUROLOGICAL: Difficult to perform full neuro exam, CP SKIN: Warm, dry, normal turgor, no rashes or lesions noted Laboratory Results - last 24 hr 06/30/17 06/30/17 05:20 05:20 WBC 4.7 RBC 2.31 L Hgb 8.4 L Hct 25.2 L MCV 108.9 H MCH 36.2 H MCHC 33.2 RDW 16.2 H Plt Count 220 MPV 7.5 Neutrophils % 29.8 L Lymphocytes % 55.1 H D Monocytes % 10.8 H Eosinophils % 3.9 Basophils % 0.4 Sodium 143 Potassium 3.9 Chloride 97 L Carbon Dioxide 40 H Anion Gap 6 L BUN 17 Creatinine 0.6 L Creat Clearance w eGFR > 60 Random Glucose 60 L Calcium 9.4 Phosphorus 5.4 H D Magnesium 1.9 Total Bilirubin 0.5 D AST 27 D ALT 27 Alkaline Phosphatase 240 H Total Protein 6.5 Albumin 2.0 L Active Medications Generic Name Dose Route Start Last Admin Trade Name Freq PRN Reason Stop Dose Admin Albuterol/Ipratropium 1 amp 06/27/17 15:03 06/29/17 17:14 Duoneb - NEB 1 amp Q4H PRN Administration SHORTNESS OF BREATH Artificial Tears 1 drop 06/27/17 15:09 Artificial Tears OU BID PRN DRY EYES Chlorhexidine Gluconate 1 applic 06/24/17 22:00 06/29/17 21:40 Hibiclens For Decolonization - TP 1 applic HS GILL Administration Diazepam 12.5 mg 06/27/17 09:23 Diastat Rectal Gel - RC PRN PRN SEIZURE Gabapentin 200 mg 06/22/17 22:00 06/30/17 06:32 Neurontin - GT 200 mg TID GILL Administration Glycopyrrolate 1 mg 06/27/17 14:00 06/30/17 06:32 Robinul - PO 1 mg TID GILL Administration Vancomycin HCl 1,250 mg/ 250 mls @ 250 mls/hr 06/25/17 17:30 06/29/17 10:32 Dextrose IVPB 250 mls/hr DAILY GILL Administration Protocol Piperacillin Sod/Tazobactam Sod 100 mls @ 200 mls/hr 06/25/17 18:00 06/30/17 02 :59 Zosyn 4.5gm Ivpb (Pre-Docked) IVPB 200 mls/hr Q8H-IV GILL Administration Protocol Lamotrigine 200 mg 06/22/17 22:00 06/29/17 21:40 Lamictal - GT 200 mg BID GILL Administration Levothyroxine Sodium 50 mcg 06/23/17 07:00 06/30/17 06:32 Synthroid - GT 50 mcg DAILY@0700 GILL Administration Loratadine 10 mg 06/23/17 10:00 06/29/17 09:17 Claritin - GT 10 mg DAILY GILL Administration Polyethylene Glycol 17 gm 06/27/17 10:00 06/29/17 09:13 Miralax (For Daily Use) - PEG 17 gm DAILY GILL Administration Ranitidine HCl 150 mg 06/27/17 10:00 06/29/17 09:12 Zantac Oral Solution - PO 150 mg DAILY GILL Administration Scopolamine HBr 1 patch 06/28/17 11:15 06/28/17 15:45 Transderm-Scop - TD 1 patch Q72H GILL Administration Senna 17.6 mg 06/27/17 22:00 06/29/17 21:42 Senna Oral Solution - PEG 17.6 mg HS GILL Administration Topiramate 25 mg 06/22/17 22:00 06/29/17 21:41 Topamax - NR 25 mg BID GILL Administration Valproate Sodium 375 mg 06/27/17 10:00 08/20/17 21:40 Depakene - GT 375 mg BID GILL Administration ASSESSMENT/PLAN: Patient is a 46 year old male with PMHx of asthma, profound mental retardation, cerebral palsy, functional quadriplegia, recurrent epistaxis, seizure disorder, history of Katherine fundoplication (stomach wrapped to prevent reflux), s/p PEG, recurrent pneumonia, respiratory failure, oxygen dependent, sent from [facility] for upper respiratory congestion. Infectious Disease Septic shock likely secondary to pneumonia-Improved Extubated 06/27 and off pressors IV Zosyn Day 6 IV Vancomycin Day 4, ordered vanc trough for today CXR-report pending Can probably change IV to PO oral antibiotics. Pulmonary Acute hypoxic respiratory failure-Improved Extubated on 06/27 Duoneb Q4H PRN Neurology Seizure disorder-no seizure activity during hospitalization Continue Valproate 375 mg BID Continue Lamotrigine 200mg BID Continue Topiramate 25mg BID Ativan prn Functional quadriplegia Cerebral Palsy Endocrine Hypothyroidism Continue synthroid 50mcg Daily Hematology Macrocytic Anemia FEN No on any IV fluids Tube feeds- Promote @ 42 mls/hr Electrolytes to be repeated tomorrow Prophylaxis: For DVT: SCDs For GI: Not indicated Functional quadraplegia Code Status: Full Code Dispo: Admitted in ICU. Stable and can be transferred to Med-Surg. Case seen and discussed with Dr. Guidry. Visit type - Emergency Visit Emergency Visit: Yes ED Registration Date: 06/22/17 Care time: The patient presented to the Emergency Department on the above date and was hospitalized for further evaluation of their emergent condition. - New Patient This patient is new to me today: No - Critical Care Critical Care patient: Yes Total Critical Care Time (in minutes): 35 Critical Care Statement: The care of this patient involved high complexity decision making to prevent further life threatening deterioration of the patient 's condition and/or to evaluate & treat vital organ system(s) failure or risk of failure. - Discharge Referral Referred to [facility] Med P.C.: Yes
[2017-06-30] MEDS ORDERED: PT OWN MED DRAWER 7, Y5N ONE (09:25)
[2017-06-30] MEDS: lamoTRIgine 100 MG TABLET (FP) GT SCH ×2 (09:32→22:24)
[2017-06-30] MEDS: RANITIDINE HCL 150 MG/10 ML UNIT-DOSE CUP PO SCH (09:32)
[2017-06-30] MEDS: VALPROATE SODIUM 250 MG/5 ML UNIT DOSE CUP GT SCH ×2 (09:33→22:23)
[2017-06-30] MEDS: POLYETHYLENE GLYCOL 3350 119 GM BTL PEG SCH (09:33)
[2017-06-30] MEDS: TOPIRAMATE 25 MG TABLET (FP) NR SCH ×2 (09:33→22:27)
[2017-06-30] MEDS: LORATADINE 10 MG TABLET GT SCH (09:34)
--- NOTE | 2017-06-30 10:29 | PN ---
Progress Note (short form) - Note Progress Note: Neurology History of Present Illness 45-year-old male history of asthma, profound mental retardation, cerebral palsy , functional quadriplegia, recurrent epistaxis, seizure disorder, history of Katherine fundoplication (stomach wrapped to prevent reflux), s/p PEG, recurrent pneumonia, respiratory failure, oxygen dependent, sent from [facility] for upper respiratory congestion. CXR w/ progressive R infiltrate, effusion and congestion. Patient sedated, intubated and on mechanical ventilation in ICU care. Minimally responsive and does have underlying seizure disorder but no witnessed events at assisted. Patient on IV Abx. ID following. Ativan PRN can also be used but no motor abnormal activity noted on exam or witnessed. No significant improvement overnight. Remains in ICU with close monitoring but was able to be extubated. No seizure events over weekend. Awake and alert today. Not on sedation, interactive though limited cognition 2/ 2 mental retardation. Active Medications Albuterol/Ipratropium (Duoneb -) 1 amp NEB Q4H PRN PRN Reason: SHORTNESS OF BREATH Last Admin: 06/29/17 17:14 Dose: 1 amp Artificial Tears (Artificial Tears) 1 drop OU BID PRN PRN Reason: DRY EYES Chlorhexidine Gluconate (Hibiclens For Decolonization -) 1 applic TP HS GILL Last Admin: 06/29/17 21:40 Dose: 1 applic Gabapentin (Neurontin -) 200 mg GT TID GILL Last Admin: 06/30/17 06:32 Dose: 200 mg Glycopyrrolate (Robinul -) 1 mg PO TID GILL Last Admin: 06/30/17 06:32 Dose: 1 mg Vancomycin HCl 1,250 mg/ (Dextrose) 250 mls @ 250 mls/hr IVPB DAILY GILL PRN Reason: Protocol Last Admin: 06/29/17 10:32 Dose: 250 mls/hr Piperacillin Sod/Tazobactam Sod (Zosyn 4.5gm Ivpb (Pre-Docked)) 100 mls @ 200 mls/hr IVPB Q8H-IV GILL PRN Reason: Protocol Last Admin: 06/30/17 09:30 Dose: 200 mls/hr Lamotrigine (Lamictal -) 200 mg GT BID GILL Last Admin: 06/30/17 09:32 Dose: 200 mg Levothyroxine Sodium (Synthroid -) 50 mcg GT DAILY@0700 [facility] Last Admin: 06/30/17 06:32 Dose: 50 mcg Loratadine (Claritin -) 10 mg GT DAILY [facility] Last Admin: 06/30/17 09:34 Dose: 10 mg Polyethylene Glycol (Miralax (For Daily Use) -) 17 gm PEG DAILY [facility] Last Admin: 06/30/17 09:33 Dose: 17 gm Ranitidine HCl (Zantac Oral Solution -) 150 mg PO DAILY [facility] Last Admin: 06/30/17 09:32 Dose: 150 mg Scopolamine HBr (Transderm-Scop -) 1 patch TD Q72H [facility] Last Admin: 06/28/17 15:45 Dose: 1 patch Senna (Senna Oral Solution -) 17.6 mg PEG HS [facility] Last Admin: 06/29/17 21:42 Dose: 17.6 mg Topiramate (Topamax -) 25 mg NR BID [facility] Last Admin: 06/30/17 09:33 Dose: 25 mg Valproate Sodium (Depakene -) 375 mg GT BID [facility] Last Admin: 06/30/17 09:33 Dose: 375 mg *Physical Exam Vital Signs Temperature 96.2 F L 06/30/17 06:00 Pulse Rate 53 L 06/30/17 08:00 Respiratory Rate 24 06/30/17 08:00 Blood Pressure 105/55 06/30/17 08:00 O2 Sat by Pulse Oximetry (%) 96 06/29/17 20:11 General Appearance: Yes: Appropriately Dressed, not following commands, intubated on mechanical ventilation HEENT: positive: Other (mostly coagulated blood to tongue/teeth, possibly small tongue lac) Respiratory/Chest: positive: Rhonchi, Cardiovascular: positive: S1, S2 Gastrointestinal/Abdominal: positive: Soft. negative: Mass Integumentary: positive: Dry, Warm Neuro: Pupil responsive, not following commands, responds to pain and tactile stimulation, no apparent CN deficits, no abnormal motor activity, not participating in confrontation testing CBCD WBC 4.7 K/mm3 (4.0-10.0) 06/30/17 05:20 RBC 2.31 M/mm3 (4.00-5.60) L 06/30/17 05:20 Hgb 8.4 GM/dL (11.7-16.9) L 06/30/17 05:20 Hct 25.2 % (35.4-49) L 06/30/17 05:20 MCV 108.9 fl (80-96) H 06/30/17 05:20 MCHC 33.2 g/dl (32.0-35.9) 06/30/17 05:20 RDW 16.2 % (11.9-15.9) H 06/30/17 05:20 Plt Count 220 K/MM3 (134-434) 06/30/17 05:20 MPV 7.5 fl (7.5-11.1) 06/30/17 05:20 CMP Sodium 143 mmol/L (136-145) 06/30/17 05:20 Potassium 3.9 mmol/L (3.5-5.1) 06/30/17 05:20 Chloride 97 mmol/L (98-107) L 06/30/17 05:20 Carbon Dioxide 40 mmol/L (21-32) H 06/30/17 05:20 Anion Gap 6 (8-16) L 06/30/17 05:20 BUN 17 mg/dL (7-18) 06/30/17 05:20 Creatinine 0.6 mg/dL (0.7-1.3) L 06/30/17 05:20 Creat Clearance w eGFR > 60 (>60) 06/30/17 05:20 Calcium 9.4 mg/dL (8.5-10.1) 06/30/17 05:20 Total Bilirubin 0.5 mg/dL (0.2-1.0) D 06/30/17 05:20 AST 27 U/L (15-37) D 06/30/17 05:20 ALT 27 U/L (12-78) 06/30/17 05:20 Alkaline Phosphatase 240 U/L (45-117) H 06/30/17 05:20 Total Protein 6.5 g/dl (6.4-8.2) 06/30/17 05:20 Albumin 2.0 g/dl (3.4-5.0) L 06/30/17 05:20 Medical Decision Making 45-year-old male history of asthma, profound mental retardation, cerebral palsy , functional quadriplegia, recurrent epistaxis, seizure disorder, history of Katherine fundoplication (stomach wrapped to prevent reflux), s/p PEG, recurrent pneumonia, respiratory failure, oxygen dependent, sent from [facility] for upper respiratory congestion. Patient sedated, intubated and on mechanical ventilation in ICU care. There was concern for possible aspiration PNA. CXR w/ progressive R infiltrate, effusion and congestion. Currently under ICU monitoring. Extubated and not on mechanical ventilation with improving mental status. Patient on IV Abx. ID following. Can continue seizure medications , Lamictal, Topamax, Valproate. Ativan PRN can also be used at low dose for aggitation or if seizure occurs but no motor abnormal activity noted on exam or witnessed. Critical care time 35 minutes.
--- NOTE | 2017-06-30 11:50 | PN ---
Teaching Attending Note Name of Resident: Sakshi Cornell ATTENDING PHYSICIAN STATEMENT I saw and evaluated the patient. I reviewed the resident's note and discussed the case with the resident. I agree with the resident's findings and plan as documented. SUBJECTIVE: Pt seen and examined in the ICU. No events overnight. No fevers recorded. OBJECTIVE: Last Vital Signs Temp Pulse Resp BP Pulse Ox 96.2 F L 60 22 109/58 96 06/30/17 06:00 06/30/17 10:00 06/30/17 10:00 06/30/17 10:00 06/29/17 20:11 Intake & Output 06/27/17 06/28/17 06/29/17 06/30/17 23:59 23:59 23:59 23:59 Intake Total 3230 1798 1678 724 Output Total 5300 3175 2300 900 Balance -2070 -1377 -622 -176 Weight 141 lb 7 oz 142 lb 8 oz 126 lb 11.2 oz 120 lb 2 oz Gen: breathing nonlabored Heart: RRR Lung: scattered rhonchi Abd: soft, nontender Ext: + edema, contracted CBC, BMP 06/30/17 05:20 06/30/17 05:20 Active Medications Albuterol/Ipratropium (Duoneb -) 1 amp NEB Q4H PRN PRN Reason: SHORTNESS OF BREATH Last Admin: 06/29/17 17:14 Dose: 1 amp Artificial Tears (Artificial Tears) 1 drop OU BID PRN PRN Reason: DRY EYES Chlorhexidine Gluconate (Hibiclens For Decolonization -) 1 applic TP HS [facility] Last Admin: 06/29/17 21:40 Dose: 1 applic Gabapentin (Neurontin -) 200 mg GT TID [facility] Last Admin: 06/30/17 06:32 Dose: 200 mg Glycopyrrolate (Robinul -) 1 mg PO TID [facility] Last Admin: 06/30/17 06:32 Dose: 1 mg Vancomycin HCl 1,250 mg/ (Dextrose) 250 mls @ 250 mls/hr IVPB DAILY GILL PRN Reason: Protocol Last Admin: 06/29/17 10:32 Dose: 250 mls/hr Piperacillin Sod/Tazobactam Sod (Zosyn 4.5gm Ivpb (Pre-Docked)) 100 mls @ 200 mls/hr IVPB Q8H-IV GILL PRN Reason: Protocol Last Admin: 06/30/17 09:30 Dose: 200 mls/hr Lamotrigine (Lamictal -) 200 mg GT BID [facility] Last Admin: 06/30/17 09:32 Dose: 200 mg Levothyroxine Sodium (Synthroid -) 50 mcg GT DAILY@0700 [facility] Last Admin: 06/30/17 06:32 Dose: 50 mcg Loratadine (Claritin -) 10 mg GT DAILY [facility] Last Admin: 06/30/17 09:34 Dose: 10 mg Polyethylene Glycol (Miralax (For Daily Use) -) 17 gm PEG DAILY [facility] Last Admin: 06/30/17 09:33 Dose: 17 gm Ranitidine HCl (Zantac Oral Solution -) 150 mg PO DAILY [facility] Last Admin: 06/30/17 09:32 Dose: 150 mg Scopolamine HBr (Transderm-Scop -) 1 patch TD Q72H [facility] Last Admin: 06/28/17 15:45 Dose: 1 patch Senna (Senna Oral Solution -) 17.6 mg PEG HS [facility] Last Admin: 06/29/17 21:42 Dose: 17.6 mg Topiramate (Topamax -) 25 mg NR BID [facility] Last Admin: 06/30/17 09:33 Dose: 25 mg Valproate Sodium (Depakene -) 375 mg GT BID [facility] Last Admin: 06/30/17 09:33 Dose: 375 mg ASSESSMENT AND PLAN: Acute Hypoxic on Chronic Respiratory Failure Pneumonia Mental Retardation Cerebral Palsy Seizure Disorder Asthma - continue antibiotics per ID - aspiration precautions - inhaled bronchodilators - taper Fio2 to keep SpO2 >90% - antiepileptics, seizure precautions - DVT prophylaxis - can monitor on floor
--- NOTE | 2017-06-30 15:45 | PN ---
Progress Note, Physician History of Present Illness: patient stable was extubated post extubation patient doing well 'still with secretions - Current Medication List Current Medications: Active Medications Albuterol/Ipratropium (Duoneb -) 1 amp NEB Q4H PRN PRN Reason: SHORTNESS OF BREATH Last Admin: 06/29/17 17:14 Dose: 1 amp Artificial Tears (Artificial Tears) 1 drop OU BID PRN PRN Reason: DRY EYES Chlorhexidine Gluconate (Hibiclens For Decolonization -) 1 applic TP HS [facility] Last Admin: 06/29/17 21:40 Dose: 1 applic Gabapentin (Neurontin -) 200 mg GT TID [facility] Last Admin: 06/30/17 06:32 Dose: 200 mg Glycopyrrolate (Robinul -) 1 mg PO TID [facility] Last Admin: 06/30/17 06:32 Dose: 1 mg Vancomycin HCl 1,250 mg/ (Dextrose) 250 mls @ 250 mls/hr IVPB DAILY [facility] PRN Reason: Protocol Last Admin: 06/29/17 10:32 Dose: 250 mls/hr Piperacillin Sod/Tazobactam Sod (Zosyn 4.5gm Ivpb (Pre-Docked)) 100 mls @ 200 mls/hr IVPB Q8H-IV GILL PRN Reason: Protocol Last Admin: 06/30/17 09:30 Dose: 200 mls/hr Lamotrigine (Lamictal -) 200 mg GT BID [facility] Last Admin: 06/30/17 09:32 Dose: 200 mg Levothyroxine Sodium (Synthroid -) 50 mcg GT DAILY@0700 [facility] Last Admin: 06/30/17 06:32 Dose: 50 mcg Loratadine (Claritin -) 10 mg GT DAILY [facility] Last Admin: 06/30/17 09:34 Dose: 10 mg Polyethylene Glycol (Miralax (For Daily Use) -) 17 gm PEG DAILY [facility] Last Admin: 06/30/17 09:33 Dose: 17 gm Ranitidine HCl (Zantac Oral Solution -) 150 mg PO DAILY [facility] Last Admin: 06/30/17 09:32 Dose: 150 mg Scopolamine HBr (Transderm-Scop -) 1 patch TD Q72H [facility] Last Admin: 06/28/17 15:45 Dose: 1 patch Senna (Senna Oral Solution -) 17.6 mg PEG [facility] Last Admin: 06/29/17 21:42 Dose: 17.6 mg Topiramate (Topamax -) 25 mg NR BID [facility] Last Admin: 06/30/17 09:33 Dose: 25 mg Valproate Sodium (Depakene -) 375 mg GT BID [facility] Last Admin: 06/30/17 09:33 Dose: 375 mg - Objective Vital Signs: Vital Signs Temperature 96.2 F L 06/30/17 06:00 Pulse Rate 63 06/30/17 14:00 Respiratory Rate 20 06/30/17 14:00 Blood Pressure 107/58 06/30/17 14:00 O2 Sat by Pulse Oximetry (%) 96 06/29/17 20:11 Constitutional: Yes: No Distress, Calm Cardiovascular: Yes: Regular Rate and Rhythm Respiratory: Yes: On Nasal O2, Poor Air Entry, Rhonchi Gastrointestinal: Yes: Normal Bowel Sounds, Soft, Other (peg in place) Musculoskeletal: Yes: Other Extremities: Yes: Other Neurological: Yes: Alert, Other Psychiatric: Yes: Other Labs: CBC, BMP 06/30/17 05:20 06/30/17 05:20 Assessment/Plan Problem List - Problems (1) Aspiration pneumonia Code(s): J69.0 - PNEUMONITIS DUE TO INHALATION OF FOOD AND VOMIT (2) Hypercapnia Code(s): R06.89 - OTHER ABNORMALITIES OF BREATHING (3) Seizure Code(s): R56.9 - UNSPECIFIED CONVULSIONS (4) Asthma Code(s): J45.909 - UNSPECIFIED ASTHMA, UNCOMPLICATED Qualifiers: Asthma severity: mild intermittent Asthma complication type: uncomplicated Qualified Code(s): J45.20 - Mild intermittent asthma, uncomplicated (5) GERD (gastroesophageal reflux disease) Code(s): K21.9 - GASTRO-ESOPHAGEAL REFLUX DISEASE WITHOUT ESOPHAGITIS (6) Cerebral palsy, quadriplegic Code(s): G80.8 - OTHER CEREBRAL PALSY (7) Hypothyroidism Code(s): E03.9 - HYPOTHYROIDISM, UNSPECIFIED (8) Mental retardation Code(s): F79 - UNSPECIFIED INTELLECTUAL DISABILITIES pseudomonas pna mrsa pna plan continue iv abx suctioning rest as per icu rest as per team cc time 40 min
[2017-06-30] MEDS: VANCOMYCIN 1,250 MG in DEXTROSE 5%-WATER - 250 ML IVPB SCH (16:58)
[2017-06-30] MEDS ORDERED: ALBUTEROL SO4 2.5/IPRATROPIUM 0.5 INH SOL 3 ML VIAL.NEB. NEB PRN (19:10)
[2017-06-30] MEDS ORDERED: GLYCOPYRROLATE 1 MG TABLET PO SCH (22:00)
[2017-06-30] MEDS: CHLORHEXIDINE GLUCONATE 4% CLEANSER FOR DECOLONIZATION TP SCH (22:24)
[2017-06-30] MEDS: GLYCOPYRROLATE 1 MG TABLET GT SCH (22:26)
[2017-06-30] MEDS: SENNOSIDES 8.8 MG/5 ML BULK BOTTLE PEG SCH (23:05)
[2017-07-01] MEDS: GABAPENTIN 100 MG CAPSULE (FP) GT SCH ×4 (00:03→21:19)
[2017-07-01] MEDS: lamoTRIgine 100 MG TABLET (FP) GT SCH ×4 (00:04→21:18)
[2017-07-01] MEDS: VALPROATE SODIUM 250 MG/5 ML UNIT DOSE CUP GT SCH ×3 (00:04→21:17)
[2017-07-01] MEDS: TOPIRAMATE 25 MG TABLET (FP) NR SCH ×4 (00:05→21:23)
[2017-07-01] MEDS: GLYCOPYRROLATE 1 MG TABLET GT SCH ×4 (00:05→21:20)
[2017-07-01] MEDS: SENNOSIDES 8.8 MG/5 ML BULK BOTTLE PEG SCH ×2 (00:05→21:21)
[2017-07-01] MEDS ORDERED: PIPERACILLIN/TAZOBACTAM 4.5 GM VIAL IVPB ONE ×3 (01:44→17:00)
[2017-07-01] MEDS ORDERED: DEXTROSE 5%-WATER 100 ML IVPB ONE ×3 (01:45→17:00)
[2017-07-01] MEDS: PIPERACILLIN/TAZOB 4.5 GM 4.5 GM in DEXTROSE 5%-WATER 100 ML IVPB SCH ×3 (02:07→17:06)
--- NOTE | 2017-07-01 04:30 | RAPID ---
Physical Examination Vital Signs: Vital Signs Temperature 97.5 F L 07/01/17 01:48 Pulse Rate 73 07/01/17 01:48 Respiratory Rate 20 07/01/17 01:48 Blood Pressure 114/75 07/01/17 01:48 O2 Sat by Pulse Oximetry (%) 97 07/01/17 00:45 Constitutional: Yes: Moderate Distress Cardiovascular: Yes: WNL, Regular Rate and Rhythm Respiratory: Yes: Diminished, On Nasal O2, Poor Air Entry, Rhonchi, Wheezes Peripheral Pulses WNL: Yes Neurological: Yes: Other (at baseline) Psychiatric: Yes: Other (at baseline) Labs: CBC, BMP 06/30/17 05:20 06/30/17 05:20 Rapid Response - Rapid Response Assessment: Rapid Response Called Overhead Arrived to bedside, patient was in acute respiratory distress. Per RN, patient desaturated to 84% on 2LNC. Coarse rhonchi with crackles appreciated throughout. staffing manager applied BVM to assist with breathing spo2 89% Duoneb and ABG ordered stat Reviewed Chest Xray from yesterday- showed right pleural effusion with compressive atelectasis Will change Duoneb from prn to scheduled for improved respiratory function Continue to monitor Reviewed ABG- will trial off NRB and place on Venturi to maintain spo2 > 95% Will update Day team in am Critical Care Total Critical Care Time (in minutes): 32 Critical Care Statement: The care of this patient involved high complexity decision making to prevent further life threatening deterioration of the patient 's condition and/or to evaluate & treat vital organ system(s) failure or risk of failure.
[2017-07-01 04:50] LABS: ARTERIAL BLOOD GAS BASE EXCESS 8.6 meq/l (-2-2); ARTERIAL BLOOD GAS HCO3 35.4 meq/L (22-26); ARTERIAL BLOOD GAS pH 7.36 (7.35-7.45)
[2017-07-01 04:54] LABS: ART PUNCT SITE RIGHT BRACHIAL; LPM/O2% 100; PT. ON O2? YES; TYPE OF O2 NON REBREATHER
[2017-07-01] MEDS: LEVOTHYROXINE NA 50 MCG TABLET (FP) GT SCH (06:00)
[2017-07-01 07:17] LABS: MCH 34.8 pg (25.7-33.7); MCHC 32.1 g/dl (32.0-35.9); MEAN CELL VOLUME 108.3 fl (80-96); MEAN PLT VOLUME 6.9 fl (7.5-11.1); PLATELET COUNT 274 K/MM3 (134-434); WHITE BLOOD COUNT 5.3 K/mm3 (4.0-10.0)
[2017-07-01] MEDS ORDERED: FUROSEMIDE 40 MG/4 ML INJECTABLE VIAL IVPUSH ONE (07:32)
--- NOTE | 2017-07-01 07:35 | PN ---
Physical Exam: SUBJECTIVE: Patient seen and examined at the bedside. Was a rapid response overnight for acute hypoxic failure OBJECTIVE: Rapid response notes reviewed hypoxic overnight, 84% on 4 liters NC, NRB overnight and now on venti mask course rhonchi on bilateral lung coleman Left>right Will change nebs treatments to q4 scheduled Lasix 40mg IV x 1 given for increased secretions Malfunctioning of peg tube, will give valporic acid ivpb x 1 now Vital Signs Period Temp Pulse Resp BP Sys/Celestin Pulse Ox Last 24 Hr 95.2 F-98.3 F 53-82 18-30 105-120/55-80 97-100 GENERAL: Awake, alert, non verbal at baseline, brief eye contact LUNGS: diminished lung sounds, increased rhonchi compared to yesterday. Lasix 40mg x 1 ordered ABDOMEN: +peg tube UPPER EXTREMITIES: No peripheral edema. LOWER EXTREMITIES: non pitting edema on bilateral feet NEUROLOGICAL: awake, alert Laboratory Results - last 24 hr 06/30/17 06/30/17 07/01/17 05:20 10:39 04:17 Puncture Site Right brachial ABG pH 7.36 ABG pCO2 at Pt Temp 64.5 H* D ABG pO2 at Pt Temp 222.0 H* ABG HCO3 35.4 H ABG O2 Sat (Measured) 100.0 H* ABG O2 Content 14.9 L ABG Base Excess 8.6 H Jovanni Test Not applicable O2 Delivery Device Non rebreather Oxygen Flow Rate 100 PEEP 0.0 Sodium 143 Potassium 3.9 Chloride 97 L Carbon Dioxide 40 H Anion Gap 6 L BUN 17 Creatinine 0.6 L Creat Clearance w eGFR > 60 Random Glucose 60 L Calcium 9.4 Phosphorus 5.4 H D Magnesium 1.9 Total Bilirubin 0.5 D AST 27 D ALT 27 Alkaline Phosphatase 240 H Total Protein 6.5 Albumin 2.0 L Vancomycin Pre-Dose 8.219 Active Medications Generic Name Dose Route Start Last Admin Trade Name Freq PRN Reason Stop Dose Admin Albuterol/Ipratropium 1 amp 07/01/17 07:30 Duoneb - NEB Q4H [facility] Artificial Tears 1 drop 06/30/17 19:10 Artificial Tears OU BID PRN DRY EYES Chlorhexidine Gluconate 1 applic 06/30/17 22:00 06/30/17 22:24 Hibiclens For Decolonization - TP Not Given HS [facility] Furosemide 40 mg 07/01/17 07:32 Lasix Injection - IVPUSH 07/01/17 07:33 ONCE ONE Gabapentin 200 mg 06/30/17 22:00 07/01/17 05:52 Neurontin - GT Not Given TID [facility] Glycopyrrolate 1 mg 06/30/17 22:00 07/01/17 05:52 Robinul - GT Not Given TID [facility] Vancomycin HCl 1,250 mg/ 250 mls @ 166.667 mls/hr 07/01/17 10:00 Dextrose IVPB DAILY [facility] Protocol Piperacillin Sod/Tazobactam 100 mls @ 200 mls/hr 07/01/17 02:00 07/01/17 02:07 Sod 4.5 gm/ Dextrose IVPB 200 mls/hr Q8H-IV [facility] Administration Protocol Lamotrigine 200 mg 06/30/17 22:00 07/01/17 00:04 Lamictal - GT Not Given BID [facility] Levothyroxine Sodium 50 mcg 07/01/17 07:00 07/01/17 06:00 Synthroid - GT Not Given DAILY@0700 [facility] Loratadine 10 mg 07/01/17 10:00 Claritin - GT DAILY [facility] Polyethylene Glycol 119 gm 07/01/17 10:00 Miralax (For Daily Use) - PEG DAILY [facility] Ranitidine HCl 150 mg 07/01/17 10:00 Zantac Oral Solution - PO DAILY [facility] Scopolamine HBr 1 patch 07/01/17 11:15 Transderm-Scop - TD Q72H [facility] Senna 17.6 mg 06/30/17 22:00 07/01/17 00:05 Senna Oral Solution - PEG Not Given HS [facility] Topiramate 25 mg 06/30/17 22:00 07/01/17 00:05 Topamax - NR Not Given BID [facility] Valproate Sodium 375 mg 06/30/17 22:00 07/01/17 00:04 Depakene - GT Not Given BID [facility] ASSESSMENT/PLAN: Patient is a 46 year old male with a significant past medical history of asthma , profound mental retardation, cerebral palsy, functional quadriplegia, recurrent epistaxis, seizure disorder, history of Katherine fundoplication ( stomach wrapped to prevent reflux), s/p PEG, recurrent pneumonia, respiratory failure, oxygen dependent, sent from [facility] on for upper respiratory congestion and difficulty breathing. ID: Septic Shock likely 2/2 to Aspiration pnemonia, vs HCAP/upper respiratory infection with respiratory Failure - improving A/P: Was a rapid response today for respiratory failure on nasal cannula, Now on a venti mask @50%, sats are improving ABGs reviewed, Chest Xray shows moderate right pleural effusion with compression atelectasis Given Lasix 40mg IV x 1 with some improvement Will repeat chest xray in a.m. Continues on Zosyn (06/25- )and Vancomycin (06/25- ) ID following On scheduled duonebs Monitor respiratory status closely Pulmonary following Neurology: Seizure disorder - chronic A/P: On admission patient presented with dry blood on oral cavity with tongue laceration Likely had a seizure which may have caused him to aspirate Continue home anti-seizure medications, given 1 stat dose of IV Valporic acid for clogged Peg tube Ativan added for any seizure episodes Neuro notes reviewed Neuro following Endocrine: Hypothyroidism - chronic A/P: On Synthroid TSH within normal limits Cerebral Palsy/Qudriplegic - chronic A/P: Turn and position Dependent on all ADLs Hematology: Thrombocytopenia - resolved A/P: monitor with CBC in a.m. Anemia - stable A/P; low h/h, low stable, monitor F.E.N. Fluids: tolerating tube feeds Electrolytes: monitor DVT Proph: DVT: SCDs GI: Protonix ivpb Disposition: Full Code. Code status confirmed with [place] Nursing maid supervisor. Visit type - Emergency Visit Emergency Visit: Yes ED Registration Date: 06/22/17 Care time: The patient presented to the Emergency Department on the above date and was hospitalized for further evaluation of their emergent condition. - New Patient This patient is new to me today: No - Critical Care Critical Care patient: No - Discharge Referral Referred to [facility] Med P.C.: No
[2017-07-01 07:54] LABS: ALBUMIN 2.3 g/dl (3.4-5.0); ALK PHOS 264 U/L (45-117); ANION GAP 6 (8-16); BILIRUBIN,TOTAL 0.4 mg/dL (0.2-1.0); CALCIUM 9.5 mg/dL (8.5-10.1); CO2 38 mmol/L (21-32); CREATININE 0.6 mg/dL (0.7-1.3); GLUCOSE,RANDOM 70 mg/dL (74-106); PHOSPHOROUS 3.6 mg/dL (2.5-4.9); SGOT/AST 25 U/L (15-37); SGPT/ALT 24 U/L (12-78); TOT PROT 7.1 g/dl (6.4-8.2)
[2017-07-01] MEDS: ALBUTEROL SO4 2.5/IPRATROPIUM 0.5 INH SOL 3 ML VIAL.NEB. NEB SCH ×4 (10:25→22:15)
[2017-07-01] MEDS: LORATADINE 10 MG TABLET GT SCH (10:31)
[2017-07-01] MEDS: POLYETHYLENE GLYCOL 3350 119 GM BTL PEG SCH (10:32)
[2017-07-01] MEDS: RANITIDINE HCL 150 MG/10 ML UNIT-DOSE CUP PO SCH ×2 (10:33→14:15)
[2017-07-01] MEDS: VANCOMYCIN 1,250 MG in DEXTROSE 5%-WATER - 250 ML IVPB SCH (10:48)
[2017-07-01] MEDS: SCOPOLAMINE HYDROBROMIDE 1 PATCH PATCH.TD72 TD SCH (10:48)
--- NOTE | 2017-07-01 11:03 | PN ---
Progress Note (short form) - Note Progress Note: Neurology History of Present Illness 45-year-old male history of asthma, profound mental retardation, cerebral palsy , functional quadriplegia, recurrent epistaxis, seizure disorder, history of Katherine fundoplication (stomach wrapped to prevent reflux), s/p PEG, recurrent pneumonia, respiratory failure, oxygen dependent, sent from [facility] for upper respiratory congestion. CXR w/ progressive R infiltrate, effusion and congestion. Patient sedated, intubated and on mechanical ventilation in ICU care. Minimally responsive and does have underlying seizure disorder but no witnessed events at retirement. Patient on IV Abx. ID following. Ativan PRN can also be used but no motor abnormal activity noted on exam or witnessed. Patient more restless today, non-rebreather on face. He is less interactive today though limited cognition 2/2 mental retardation. LARGE ENGINE ASSEMBLER at bedside trying to get G-tube working. May need to convert medications to IV if the G tube isn't functional. Active Medications Albuterol/Ipratropium (Duoneb -) 1 amp NEB Q4HWA [facility] Artificial Tears (Artificial Tears) 1 drop OU BID PRN PRN Reason: DRY EYES Chlorhexidine Gluconate (Hibiclens For Decolonization -) 1 applic TP HS [facility] Last Admin: 06/30/17 22:24 Dose: Not Given Gabapentin (Neurontin -) 200 mg GT TID [facility] Last Admin: 07/01/17 05:52 Dose: Not Given Glycopyrrolate (Robinul -) 1 mg GT TID [facility] Last Admin: 07/01/17 05:52 Dose: Not Given Vancomycin HCl 1,250 mg/ (Dextrose) 250 mls @ 166.667 mls/hr IVPB DAILY [facility] PRN Reason: Protocol Last Admin: 07/01/17 10:48 Dose: 166.667 mls/hr Piperacillin Sod/Tazobactam (Sod 4.5 gm/ Dextrose) 100 mls @ 200 mls/hr IVPB Q8H-IV [facility] PRN Reason: Protocol Last Admin: 07/01/17 10:00 Dose: 200 mls/hr Lamotrigine (Lamictal -) 200 mg GT BID [facility] Last Admin: 07/01/17 10:32 Dose: Not Given Levothyroxine Sodium (Synthroid -) 50 mcg GT DAILY@0700 [facility] Last Admin: 07/01/17 06:00 Dose: Not Given Loratadine (Claritin -) 10 mg GT DAILY [facility] Last Admin: 07/01/17 10:31 Dose: Not Given Polyethylene Glycol (Miralax (For Daily Use) -) 119 gm PEG DAILY [facility] Last Admin: 07/01/17 10:32 Dose: Not Given Ranitidine HCl (Zantac Oral Solution -) 150 mg PO DAILY [facility] Last Admin: 07/01/17 10:33 Dose: Not Given Scopolamine HBr (Transderm-Scop -) 1 patch TD Q72H [facility] Last Admin: 07/01/17 10:48 Dose: 1 patch Senna (Senna Oral Solution -) 17.6 mg PEG HS [facility] Last Admin: 07/01/17 00:05 Dose: Not Given Topiramate (Topamax -) 25 mg NR BID [facility] Last Admin: 07/01/17 10:33 Dose: Not Given Valproate Sodium (Depakene -) 375 mg GT BID [facility] Last Admin: 07/01/17 10:31 Dose: Not Given Valproate Sodium (Depacon Injection -) 375 mg IVPB ONCE ONE Stop: 07/01/17 10:30 *Physical Exam Vital Signs Temperature 98.1 F 07/01/17 09:00 Pulse Rate 77 07/01/17 09:00 Respiratory Rate 24 07/01/17 09:00 Blood Pressure 118/45 07/01/17 09:00 O2 Sat by Pulse Oximetry (%) 97 07/01/17 00:45 General Appearance: Yes: Appropriately Dressed, not following commands, intubated on mechanical ventilation HEENT: positive: Other (mostly coagulated blood to tongue/teeth, possibly small tongue lac) Respiratory/Chest: positive: Rhonchi, Cardiovascular: positive: S1, S2 Gastrointestinal/Abdominal: positive: Soft. negative: Mass Integumentary: positive: Dry, Warm Neuro: Pupil responsive, not following commands, responds to pain and tactile stimulation, no apparent CN deficits, no abnormal motor activity, not participating in confrontation testing CBCD WBC 5.3 K/mm3 (4.0-10.0) 07/01/17 06:45 RBC 2.65 M/mm3 (4.00-5.60) L 07/01/17 06:45 Hgb 9.2 GM/dL (11.7-16.9) L 07/01/17 06:45 Hct 28.7 % (35.4-49) L 07/01/17 06:45 MCV 108.3 fl (80-96) H 07/01/17 06:45 MCHC 32.1 g/dl (32.0-35.9) 07/01/17 06:45 RDW 16.0 % (11.9-15.9) H 07/01/17 06:45 Plt Count 274 K/MM3 (134-434) D 07/01/17 06:45 MPV 6.9 fl (7.5-11.1) L 07/01/17 06:45 CMP Sodium 142 mmol/L (136-145) 07/01/17 06:45 Potassium 4.2 mmol/L (3.5-5.1) 07/01/17 06:45 Chloride 98 mmol/L (98-107) 07/01/17 06:45 Carbon Dioxide 38 mmol/L (21-32) H 07/01/17 06:45 Anion Gap 6 (8-16) L 07/01/17 06:45 BUN 18 mg/dL (7-18) 07/01/17 06:45 Creatinine 0.6 mg/dL (0.7-1.3) L 07/01/17 06:45 Creat Clearance w eGFR > 60 (>60) 07/01/17 06:45 Calcium 9.5 mg/dL (8.5-10.1) 07/01/17 06:45 Total Bilirubin 0.4 mg/dL (0.2-1.0) 07/01/17 06:45 AST 25 U/L (15-37) 07/01/17 06:45 ALT 24 U/L (12-78) 07/01/17 06:45 Alkaline Phosphatase 264 U/L (45-117) H 07/01/17 06:45 Total Protein 7.1 g/dl (6.4-8.2) 07/01/17 06:45 Albumin 2.3 g/dl (3.4-5.0) L 07/01/17 06:45 Medical Decision Making 45-year-old male history of asthma, profound mental retardation, cerebral palsy , functional quadriplegia, recurrent epistaxis, seizure disorder, history of Katherine fundoplication (stomach wrapped to prevent reflux), s/p PEG, recurrent pneumonia, respiratory failure, oxygen dependent, sent from [facility] for upper respiratory congestion. Previously in ICU and now on floor. There was concern for possible aspiration PNA. CXR w/ progressive R infiltrate, effusion and congestion. Extubated and not on mechanical ventilation with improving mental status but more restless today. Patient on IV Abx. ID following. Can continue seizure medications, Lamictal, Topamax, Valproate. Ativan PRN can also be used at low dose for aggitation or if seizure occurs but no motor abnormal activity noted on exam or witnessed. Monitor closely, may need ICU care again if respiratory status deteriorates. Is dependent on oxygen at retirement.
[2017-07-01] MEDS ORDERED: VALPROATE SODIUM 500 MG/5 ML VIAL IVPB ONE (13:00)
--- NOTE | 2017-07-01 13:54 | PN ---
Progress Note (short form) - Note Progress Note: Please call the gi injection moulding machine operator. thank you
--- NOTE | 2017-07-01 13:59 | PN ---
Progress Note (short form) - Note Progress Note: Called because G-Tube clogged since last night. A feeding tube declogger was used without improvement. G-Tube has recently been changed by Dr. Bean to an 18Fr. balloon replacement G-Tube. On exam: Patient awake, abdomen soft, non-distended, +BS. 18fr balloon G- Tube in LUQ, rotating freely. No peristomal erythema/induration / fluctuance. G -Tube unable to be flushed. A longer yellow feeding tube declogger was slowly inserted resulting in clearance of the G-Tube clog. The clog flushed with ease Imp: Clogged G-Tube now declogged Plan: Aspiration precautions Flush G-Tube with 30cc water after feedings and after medications given
[2017-07-01] MEDS ORDERED: PT OWN MED DRAWER 7, Y5N ONE ×2 (14:29→20:09)
[2017-07-01 14:45] LABS: ARTERIAL BLD GAS O2 SATURATION 98.6 % (90-98.9); ARTERIAL BLOOD GAS BASE EXCESS 11.6 meq/l (-2-2); ARTERIAL BLOOD GAS HCO3 36.4 meq/L (22-26); ARTERIAL BLOOD GAS pH 7.48 (7.35-7.45)
[2017-07-01 14:47] LABS: ART PUNCT SITE RIGHT BRACHIAL; LPM/O2% 50%; PT. ON O2? YES; TYPE OF O2 VENTIMASK
--- NOTE | 2017-07-01 15:34 | PN ---
Progress Note, Physician History of Present Illness: transferred to the regular floor patient stable still some secretions - Current Medication List Current Medications: Active Medications Albuterol/Ipratropium (Duoneb -) 1 amp NEB Q4HWA [facility] Last Admin: 07/01/17 14:40 Dose: 1 amp Artificial Tears (Artificial Tears) 1 drop OU BID PRN PRN Reason: DRY EYES Chlorhexidine Gluconate (Hibiclens For Decolonization -) 1 applic TP HS [facility] Last Admin: 06/30/17 22:24 Dose: Not Given Gabapentin (Neurontin -) 200 mg GT TID [facility] Last Admin: 07/01/17 14:12 Dose: 200 mg Glycopyrrolate (Robinul -) 1 mg GT TID [facility] Last Admin: 07/01/17 14:13 Dose: 1 mg Vancomycin HCl 1,250 mg/ (Dextrose) 250 mls @ 166.667 mls/hr IVPB DAILY [facility] PRN Reason: Protocol Last Admin: 07/01/17 10:48 Dose: 166.667 mls/hr Piperacillin Sod/Tazobactam (Sod 4.5 gm/ Dextrose) 100 mls @ 200 mls/hr IVPB Q8H-IV [facility] PRN Reason: Protocol Last Admin: 07/01/17 10:00 Dose: 200 mls/hr Lamotrigine (Lamictal -) 200 mg GT BID [facility] Last Admin: 07/01/17 14:13 Dose: 200 mg Levothyroxine Sodium (Synthroid -) 50 mcg GT DAILY@0700 [facility] Last Admin: 07/01/17 06:00 Dose: Not Given Loratadine (Claritin -) 10 mg GT DAILY [facility] Last Admin: 07/01/17 10:31 Dose: Not Given Polyethylene Glycol (Miralax (For Daily Use) -) 119 gm PEG DAILY [facility] Last Admin: 07/01/17 10:32 Dose: Not Given Ranitidine HCl (Zantac Oral Solution -) 150 mg PO DAILY [facility] Last Admin: 07/01/17 14:15 Dose: 150 mg Scopolamine HBr (Transderm-Scop -) 1 patch TD Q72H [facility] Last Admin: 07/01/17 10:48 Dose: 1 patch Senna (Senna Oral Solution -) 17.6 mg PEG [facility] Last Admin: 07/01/17 00:05 Dose: Not Given Topiramate (Topamax -) 25 mg NR BID [facility] Last Admin: 07/01/17 14:15 Dose: 25 mg Valproate Sodium (Depakene -) 375 mg GT BID [facility] Last Admin: 07/01/17 10:31 Dose: Not Given - Objective Vital Signs: Vital Signs Temperature 98.7 F 07/01/17 14:31 Pulse Rate 71 07/01/17 14:31 Respiratory Rate 07/01/17 14:31 Blood Pressure 119/62 07/01/17 14:31 O2 Sat by Pulse Oximetry (%) 93 L 07/01/17 10:25 Constitutional: Yes: No Distress, Calm Cardiovascular: Yes: Regular Rate and Rhythm Respiratory: Yes: Poor Air Entry, Rhonchi Gastrointestinal: Yes: Normal Bowel Sounds, Soft, Other (peg in place) Musculoskeletal: Yes: Other Extremities: Yes: Other Neurological: Yes: Alert, Other Psychiatric: Yes: Other Labs: CBC, BMP 07/01/17 06:45 07/01/17 06:45 Assessment/Plan Problem List - Problems (1) Aspiration pneumonia Code(s): J69.0 - PNEUMONITIS DUE TO INHALATION OF FOOD AND VOMIT (2) Hypercapnia Code(s): R06.89 - OTHER ABNORMALITIES OF BREATHING (3) Seizure Code(s): R56.9 - UNSPECIFIED CONVULSIONS (4) Asthma Code(s): J45.909 - UNSPECIFIED ASTHMA, UNCOMPLICATED Qualifiers: Asthma severity: mild intermittent Asthma complication type: uncomplicated Qualified Code(s): J45.20 - Mild intermittent asthma, uncomplicated (5) GERD (gastroesophageal reflux disease) Code(s): K21.9 - GASTRO-ESOPHAGEAL REFLUX DISEASE WITHOUT ESOPHAGITIS (6) Cerebral palsy, quadriplegic Code(s): G80.8 - OTHER CEREBRAL PALSY (7) Hypothyroidism Code(s): E03.9 - HYPOTHYROIDISM, UNSPECIFIED (8) Mental retardation Code(s): F79 - UNSPECIFIED INTELLECTUAL DISABILITIES pseudomonas pna mrsa pna plan continue iv abx continue suctioning rest as per primary team patient has double pna will abx for total of 2 weeks
--- NOTE | 2017-07-01 15:37 | PN ---
Progress Note, Physician History of Present Illness: PULMONARY DROWSY,-RESP DISTRESS. - Current Medication List Current Medications: Active Medications Albuterol/Ipratropium (Duoneb -) 1 amp NEB Q4HWA [facility] Last Admin: 07/01/17 14:40 Dose: 1 amp Artificial Tears (Artificial Tears) 1 drop OU BID PRN PRN Reason: DRY EYES Chlorhexidine Gluconate (Hibiclens For Decolonization -) 1 applic TP HS [facility] Last Admin: 06/30/17 22:24 Dose: Not Given Gabapentin (Neurontin -) 200 mg GT TID [facility] Last Admin: 07/01/17 14:12 Dose: 200 mg Glycopyrrolate (Robinul -) 1 mg GT TID [facility] Last Admin: 07/01/17 14:13 Dose: 1 mg Vancomycin HCl 1,250 mg/ (Dextrose) 250 mls @ 166.667 mls/hr IVPB DAILY [facility] PRN Reason: Protocol Last Admin: 07/01/17 10:48 Dose: 166.667 mls/hr Piperacillin Sod/Tazobactam (Sod 4.5 gm/ Dextrose) 100 mls @ 200 mls/hr IVPB Q8H-IV [facility] PRN Reason: Protocol Last Admin: 07/01/17 10:00 Dose: 200 mls/hr Lamotrigine (Lamictal -) 200 mg GT BID [facility] Last Admin: 07/01/17 14:13 Dose: 200 mg Levothyroxine Sodium (Synthroid -) 50 mcg GT DAILY@0700 [facility] Last Admin: 07/01/17 06:00 Dose: Not Given Loratadine (Claritin -) 10 mg GT DAILY [facility] Last Admin: 07/01/17 10:31 Dose: Not Given Polyethylene Glycol (Miralax (For Daily Use) -) 119 gm PEG DAILY [facility] Last Admin: 07/01/17 10:32 Dose: Not Given Ranitidine HCl (Zantac Oral Solution -) 150 mg PO DAILY [facility] Last Admin: 07/01/17 14:15 Dose: 150 mg Scopolamine HBr (Transderm-Scop -) 1 patch TD Q72H [facility] Last Admin: 07/01/17 10:48 Dose: 1 patch Senna (Senna Oral Solution -) 17.6 mg PEG [facility] Last Admin: 07/01/17 00:05 Dose: Not Given Topiramate (Topamax -) 25 mg NR BID [facility] Last Admin: 07/01/17 14:15 Dose: 25 mg Valproate Sodium (Depakene -) 375 mg GT BID [facility] Last Admin: 07/01/17 10:31 Dose: Not Given - Objective Vital Signs: Vital Signs Temperature 98.7 F 07/01/17 14:31 Pulse Rate 71 07/01/17 14:31 Respiratory Rate 22 07/01/17 14:31 Blood Pressure 119/62 07/01/17 14:31 O2 Sat by Pulse Oximetry (%) 93 L 07/01/17 10:25 Constitutional: Yes: Well Nourished, Calm Eyes: Yes: WNL HENT: Yes: WNL Neck: Yes: WNL Cardiovascular: Yes: Regular Rate and Rhythm, S1, S2 Respiratory: Yes: Rhonchi (SCATTERED SHAYY RHONCHI) Gastrointestinal: Yes: Normal Bowel Sounds, Soft Extremities: Yes: WNL Edema: No Labs: CBC, BMP 07/01/17 06:45 07/01/17 06:45 - ....Imaging Chest X-ray: Report Reviewed, Image Reviewed (NO CHANGE) Assessment/Plan ASSESSMENT AND PLAN: Acute Hypoxic on Chronic Respiratory Failure Pneumonia Mental Retardation Cerebral Palsy Seizure Disorder Asthma - continue antibiotics per ID - aspiration precautions - inhaled bronchodilators - taper Fio2 to keep SpO2 >90% - antiepileptics, seizure precautions - DVT prophylaxis DR [place]
[2017-07-01] MEDS: CHLORHEXIDINE GLUCONATE 4% CLEANSER FOR DECOLONIZATION TP SCH (21:19)
[2017-07-02] MEDS: PIPERACILLIN/TAZOB 4.5 GM 4.5 GM in DEXTROSE 5%-WATER 100 ML IVPB SCH ×4 (00:57→17:16)
[2017-07-02] MEDS: ALBUTEROL SO4 2.5/IPRATROPIUM 0.5 INH SOL 3 ML VIAL.NEB. NEB SCH ×5 (06:20→23:15)
[2017-07-02 07:27] LABS: BASOPHIL 0.6 % (0-2.0); EOSINOPHIL 2.9 % (0-4.5); MCH 35.7 pg (25.7-33.7); MCHC 32.7 g/dl (32.0-35.9); MEAN CELL VOLUME 109.3 fl (80-96); MEAN PLT VOLUME 6.6 fl (7.5-11.1); PLATELET COUNT 385 K/MM3 (134-434); RDW 15.8 % (11.9-15.9); WHITE BLOOD COUNT 6.1 K/mm3 (4.0-10.0)
[2017-07-02 07:53] LABS: ALBUMIN 2.5 g/dl (3.4-5.0); ALK PHOS 256 U/L (45-117); ANION GAP 7 (8-16); BILIRUBIN,TOTAL 0.4 mg/dL (0.2-1.0); CALCIUM 9.9 mg/dL (8.5-10.1); CO2 38 mmol/L (21-32); CREATININE 0.8 mg/dL (0.7-1.3); GLUCOSE,RANDOM 76 mg/dL (74-106); SGOT/AST 22 U/L (15-37); SGPT/ALT 23 U/L (12-78); TOT PROT 7.6 g/dl (6.4-8.2)
[2017-07-02] MEDS ORDERED: PIPERACILLIN/TAZOBACTAM 4.5 GM VIAL IVPB ONE (09:44)
[2017-07-02] MEDS ORDERED: DEXTROSE 5%-WATER 100 ML IVPB ONE (09:45)
--- NOTE | 2017-07-02 10:28 | PN ---
Progress Note (short form) - Note Progress Note: Neurology History of Present Illness 45-year-old male history of asthma, profound mental retardation, cerebral palsy , functional quadriplegia, recurrent epistaxis, seizure disorder, history of Katherine fundoplication (stomach wrapped to prevent reflux), s/p PEG, recurrent pneumonia, respiratory failure, oxygen dependent, sent from [facility] for upper respiratory congestion. CXR w/ progressive R infiltrate, effusion and congestion. Patient sedated, intubated and on mechanical ventilation in ICU care. Minimally responsive and does have underlying seizure disorder but no witnessed events at assisted. Patient on IV Abx. ID following. Ativan PRN can also be used but no motor abnormal activity noted on exam or witnessed. He is less interactive today though limited cognition 2/2 mental retardation. No respiratory distress and calm today. Wearing non- rebreather. Not restless today as he was yesterday. Active Medications Albuterol/Ipratropium (Duoneb -) 1 amp NEB Q4HWA [facility] Last Admin: 07/02/17 06:20 Dose: 1 amp Artificial Tears (Artificial Tears) 1 drop OU BID PRN PRN Reason: DRY EYES Chlorhexidine Gluconate (Hibiclens For Decolonization -) 1 applic TP HS [facility] Last Admin: 07/01/17 21:19 Dose: Not Given Gabapentin (Neurontin -) 200 mg GT TID [facility] Last Admin: 07/01/17 21:19 Dose: 200 mg Glycopyrrolate (Robinul -) 1 mg GT TID [facility] Last Admin: 07/01/17 21:20 Dose: 1 mg Vancomycin HCl 1,250 mg/ (Dextrose) 250 mls @ 166.667 mls/hr IVPB DAILY [facility] PRN Reason: Protocol Last Admin: 07/01/17 10:48 Dose: 166.667 mls/hr Piperacillin Sod/Tazobactam (Sod 4.5 gm/ Dextrose) 100 mls @ 200 mls/hr IVPB Q8H-IV [facility] PRN Reason: Protocol Last Admin: 07/02/17 00:59 Dose: Not Given Lamotrigine (Lamictal -) 200 mg GT BID [facility] Last Admin: 07/01/17 21:18 Dose: 200 mg Levothyroxine Sodium (Synthroid -) 50 mcg GT DAILY@0700 [facility] Last Admin: 07/01/17 06:00 Dose: Not Given Loratadine (Claritin -) 10 mg GT DAILY [facility] Last Admin: 07/01/17 10:31 Dose: Not Given Polyethylene Glycol (Miralax (For Daily Use) -) 119 gm PEG DAILY [facility] Last Admin: 07/01/17 10:32 Dose: Not Given Ranitidine HCl (Zantac Oral Solution -) 150 mg PO DAILY [facility] Last Admin: 07/01/17 14:15 Dose: 150 mg Scopolamine HBr (Transderm-Scop -) 1 patch TD Q72H [facility] Last Admin: 07/01/17 10:48 Dose: 1 patch Senna (Senna Oral Solution -) 17.6 mg PEG HS [facility] Last Admin: 07/01/17 21:21 Dose: 17.6 mg Topiramate (Topamax -) 25 mg NR BID [facility] Last Admin: 07/01/17 21:23 Dose: 25 mg Valproate Sodium (Depakene -) 375 mg GT BID [facility] Last Admin: 07/01/17 21:17 Dose: 375 mg *Physical Exam Vital Signs Temperature 98.6 F 07/02/17 06:33 Pulse Rate 71 07/02/17 06:33 Respiratory Rate 18 07/02/17 06:33 Blood Pressure 96/53 07/02/17 06:33 O2 Sat by Pulse Oximetry (%) 95 07/01/17 22:11 General Appearance: Yes: Appropriately Dressed, not following commands, intubated on mechanical ventilation HEENT: positive: Other (mostly coagulated blood to tongue/teeth, possibly small tongue lac) Respiratory/Chest: positive: Rhonchi, Cardiovascular: positive: S1, S2 Gastrointestinal/Abdominal: positive: Soft. negative: Mass Integumentary: positive: Dry, Warm Neuro: Pupil responsive, not following commands, responds to pain and tactile stimulation, no apparent CN deficits, no abnormal motor activity, not participating in confrontation testing CBCD WBC 6.1 K/mm3 (4.0-10.0) 07/02/17 06:00 RBC 2.67 M/mm3 (4.00-5.60) L 07/02/17 06:00 Hgb 9.5 GM/dL (11.7-16.9) L 07/02/17 06:00 Hct 29.1 % (35.4-49) L 07/02/17 06:00 MCV 109.3 fl (80-96) H 07/02/17 06:00 MCHC 32.7 g/dl (32.0-35.9) 07/02/17 06:00 RDW 15.8 % (11.9-15.9) 07/02/17 06:00 Plt Count 385 K/MM3 (134-434) D 07/02/17 06:00 MPV 6.6 fl (7.5-11.1) L 07/02/17 06:00 CMP Sodium 140 mmol/L (136-145) 07/02/17 05:50 Potassium 4.5 mmol/L (3.5-5.1) 07/02/17 05:50 Chloride 95 mmol/L (98-107) L 07/02/17 05:50 Carbon Dioxide 38 mmol/L (21-32) H 07/02/17 05:50 Anion Gap 7 (8-16) L 07/02/17 05:50 BUN 16 mg/dL (7-18) 07/02/17 05:50 Creatinine 0.8 mg/dL (0.7-1.3) D 07/02/17 05:50 Creat Clearance w eGFR > 60 (>60) 07/02/17 05:50 Calcium 9.9 mg/dL (8.5-10.1) 07/02/17 05:50 Total Bilirubin 0.4 mg/dL (0.2-1.0) 07/02/17 05:50 AST 22 U/L (15-37) 07/02/17 05:50 ALT 23 U/L (12-78) 07/02/17 05:50 Alkaline Phosphatase 256 U/L (45-117) H 07/02/17 05:50 Total Protein 7.6 g/dl (6.4-8.2) 07/02/17 05:50 Albumin 2.5 g/dl (3.4-5.0) L 07/02/17 05:50 Medical Decision Making 45-year-old male history of asthma, profound mental retardation, cerebral palsy , functional quadriplegia, recurrent epistaxis, seizure disorder, history of Katherine fundoplication (stomach wrapped to prevent reflux), s/p PEG, recurrent pneumonia, respiratory failure, oxygen dependent, sent from [facility] for upper respiratory congestion. Previously in ICU and now on floor. There was concern for possible aspiration PNA. CXR w/ progressive R infiltrate, effusion and congestion. Extubated and not on mechanical ventilation with improving mental status but more restless today. Patient on IV Abx. ID following. Can continue seizure medications, Lamictal, Topamax, Valproate. Ativan PRN can also be used at low dose for aggitation or if seizure occurs but no motor abnormal activity noted on exam or witnessed. Monitor closely, may need ICU care again if respiratory status deteriorates. Will continue to follow.
--- NOTE | 2017-07-02 11:19 | PN ---
Progress Note (short form) - Note Progress Note: Subjective: The patient was seen and examined at the bedside, still with cough Current Medications Generic Name Dose Route Start Last Admin Trade Name Freq PRN Reason Stop Dose Admin Albuterol/Ipratropium 1 amp 06/27/17 15:03 Duoneb - NEB Q4H PRN SHORTNESS OF BREATH Artificial Tears 1 drop 06/27/17 15:09 Artificial Tears OU BID PRN DRY EYES Chlorhexidine Gluconate 1 applic 06/24/17 22:00 06/28/17 21:06 Hibiclens For Decolonization - TP 1 applic HS [facility] Administration Clonazepam 0.5 mg 06/22/17 22:00 06/29/17 14:18 Klonopin - GT 0.5 mg TID [facility] Administration Diazepam 12.5 mg 06/27/17 09:23 Diastat Rectal Gel - RC PRN PRN SEIZURE Gabapentin 200 mg 06/22/17 22:00 06/29/17 14:18 Neurontin - GT 200 mg TID [facility] Administration Glycopyrrolate 1 mg 06/27/17 14:00 06/29/17 14:19 Robinul - PO 1 mg TID [facility] Administration Vancomycin HCl 1,250 mg/ 250 mls @ 250 mls/hr 06/25/17 17:30 06/29/17 10:32 Dextrose IVPB 250 mls/hr DAILY [facility] Administration Protocol Piperacillin Sod/Tazobactam Sod 100 mls @ 200 mls/hr 06/25/17 18:00 06/29/17 11 :00 Zosyn 4.5gm Ivpb (Pre-Docked) IVPB 200 mls/hr Q8H-IV [facility] Administration Protocol Lamotrigine 200 mg 06/22/17 22:00 06/29/17 09:13 Lamictal - GT 200 mg BID [facility] Administration Levothyroxine Sodium 50 mcg 06/23/17 07:00 06/29/17 06:12 Synthroid - GT 50 mcg DAILY@0700 [facility] Administration Loratadine 10 mg 06/23/17 10:00 06/29/17 09:17 Claritin - GT 10 mg DAILY [facility] Administration Mupirocin 1 applic 06/24/17 22:00 06/29/17 09:21 Bactroban Ointment (For Decolonization) - NS 06/29/17 21:59 1 applic BID [facility] Administration Polyethylene Glycol 17 gm 06/27/17 10:00 06/29/17 09:13 Miralax (For Daily Use) - PEG 17 gm DAILY [facility] Administration Ranitidine HCl 150 mg 06/27/17 10:00 06/29/17 09:12 Zantac Oral Solution - PO 150 mg DAILY [facility] Administration Scopolamine HBr 1 patch 06/28/17 11:15 06/28/17 15:45 Transderm-Scop - TD 1 patch Q72H [facility] Administration Senna 17.6 mg 06/27/17 22:00 06/28/17 21:03 Senna Oral Solution - PEG 17.6 mg HS [facility] Administration Topiramate 25 mg 06/22/17 22:00 06/29/17 09:13 Topamax - NR 25 mg BID [facility] Administration Valproate Sodium 375 mg 06/27/17 10:00 06/29/17 09:14 Depakene - GT 375 mg BID [facility] Administration Objective: Vital Signs Period Temp Pulse Resp BP Sys/Celestin Pulse Ox Last 24 Hr 97.3 F-98.9 F 71-80 16-24 96-119/46-62 95-95 Physical Exam: General: NAD, non-verbal HEENT: dried blood in his mouth Lungs: Coarse b/l rhonchi Heart: RRR, S1S2 Abd: PEG in place. Normoactive bowel sounds Ext: Warm. 3+ pedal edema Neuro: Non-verbal CBCD WBC 6.1 K/mm3 (4.0-10.0) 07/02/17 06:00 RBC 2.67 M/mm3 (4.00-5.60) L 07/02/17 06:00 Hgb 9.5 GM/dL (11.7-16.9) L 07/02/17 06:00 Hct 29.1 % (35.4-49) L 07/02/17 06:00 MCV 109.3 fl (80-96) H 07/02/17 06:00 MCHC 32.7 g/dl (32.0-35.9) 07/02/17 06:00 RDW 15.8 % (11.9-15.9) 07/02/17 06:00 Plt Count 385 K/MM3 (134-434) D 07/02/17 06:00 MPV 6.6 fl (7.5-11.1) L 07/02/17 06:00 CMP Sodium 140 mmol/L (136-145) 07/02/17 05:50 Potassium 4.5 mmol/L (3.5-5.1) 07/02/17 05:50 Chloride 95 mmol/L (98-107) L 07/02/17 05:50 Carbon Dioxide 38 mmol/L (21-32) H 07/02/17 05:50 Anion Gap 7 (8-16) L 07/02/17 05:50 BUN 16 mg/dL (7-18) 07/02/17 05:50 Creatinine 0.8 mg/dL (0.7-1.3) D 07/02/17 05:50 Creat Clearance w eGFR > 60 (>60) 07/02/17 05:50 Random Glucose 76 mg/dL (74-106) 07/02/17 05:50 Calcium 9.9 mg/dL (8.5-10.1) 07/02/17 05:50 Total Bilirubin 0.4 mg/dL (0.2-1.0) 07/02/17 05:50 AST 22 U/L (15-37) 07/02/17 05:50 ALT 23 U/L (12-78) 07/02/17 05:50 Alkaline Phosphatase 256 U/L (45-117) H 07/02/17 05:50 Total Protein 7.6 g/dl (6.4-8.2) 07/02/17 05:50 Albumin 2.5 g/dl (3.4-5.0) L 07/02/17 05:50 CARDIAC ENZYMES Creatine Kinase 85 IU/L (39-308) 06/22/17 18:35 Troponin I < 0.02 ng/ml (0.00-0.05) 06/22/17 18:35 Assessment: This is a 46 year old male with PMHx of asthma, profound mental retardation, cerebral palsy, functional quadriplegia, recurrent epistaxis, seizure disorder, history of Katherine fundoplication (stomach wrapped to prevent reflux), s/p PEG, recurrent pneumonia, respiratory failure, oxygen dependent, sent from [facility] for upper respiratory congestion. Plan: 1) Pulmonary: Acute hypoxic, hypercapneic respiratory failure - Extubated on 06/27 - Duoneb q4h prn 2) ID: Septic shock 2/2 pneumonia - Off pressors, maintain MAP >65 - Continue Zosyn (06/22- ) - Continue Vancomycin (06/25- ) - Appreciate ID consult 3) Neuro: Seizure disorder - Continue Valproate - Continue Lamictal - Continue Topamax - Ativan prn - Appreciate neurology consult 4) Endocrine: hypothyroidism - Continue synthroid 5) Hematology: Chronic Anemia - Continue to trend 6) F/E/N: - Tube feeds - Monitor electrolytes 7) Prophylaxis: - SCDs bilaterally - Patient has history of bleeding with chemical dvt prophylaxis, will hold for now - Functional quadraplegia 8) Dispo: - Requires continued inpatient care CODE STATUS: FULL CODE Visit type - Emergency Visit Emergency Visit: Yes ED Registration Date: 06/22/17 Care time: The patient presented to the Emergency Department on the above date and was hospitalized for further evaluation of their emergent condition. - New Patient This patient is new to me today: No - Critical Care Critical Care patient: No
[2017-07-02] MEDS: lamoTRIgine 100 MG TABLET (FP) GT SCH ×2 (11:40→22:06)
[2017-07-02] MEDS: RANITIDINE HCL 150 MG/10 ML UNIT-DOSE CUP PO SCH (11:40)
[2017-07-02] MEDS: LORATADINE 10 MG TABLET GT SCH (11:40)
[2017-07-02] MEDS: VALPROATE SODIUM 250 MG/5 ML UNIT DOSE CUP GT SCH ×2 (11:41→22:04)
[2017-07-02] MEDS: TOPIRAMATE 25 MG TABLET (FP) NR SCH ×2 (11:42→22:09)
[2017-07-02] MEDS: VANCOMYCIN 1,250 MG in DEXTROSE 5%-WATER - 250 ML IVPB SCH (12:24)
--- NOTE | 2017-07-02 13:02 | PN ---
Progress Note (short form) - Note Progress Note: PULMONARY MYOCLONIC JERKS V/M DISLODGED VSS/AFEBRILE PALE SCATTERED RHONCHI/WHEEZE S1S2 BS+ MILD EDEMA LOWER EXT LABS/MEDS/NOTES/MICRO IMAGING REVIEWED Acute Hypoxic on Chronic Respiratory Failure Pneumonia Mental Retardation Cerebral Palsy Seizure Disorder Asthma - continue antibiotics per ID - aspiration precautions - inhaled bronchodilators - taper Fio2 to keep SpO2 >90% - antiepileptics, seizure precautions - DVT prophylaxis Zeynep ONEAL MD
[2017-07-02] MEDS: GABAPENTIN 100 MG CAPSULE (FP) GT SCH ×3 (14:20→22:07)
[2017-07-02] MEDS: GLYCOPYRROLATE 1 MG TABLET GT SCH ×3 (14:20→22:08)
[2017-07-02] MEDS: POLYETHYLENE GLYCOL 3350 119 GM BTL PEG SCH (14:24)
--- NOTE | 2017-07-02 16:31 | PN ---
Progress Note, Physician History of Present Illness: maddie ramirez now better patient stable still some secretions - Current Medication List Current Medications: Active Medications Albuterol/Ipratropium (Duoneb -) 1 amp NEB Q4HWA [facility] Last Admin: 07/02/17 14:15 Dose: 1 amp Artificial Tears (Artificial Tears) 1 drop OU BID PRN PRN Reason: DRY EYES Chlorhexidine Gluconate (Hibiclens For Decolonization -) 1 applic TP HS [facility] Last Admin: 07/01/17 21:19 Dose: Not Given Gabapentin (Neurontin -) 200 mg GT TID [facility] Last Admin: 07/02/17 14:20 Dose: 200 mg Glycopyrrolate (Robinul -) 1 mg GT TID [facility] Last Admin: 07/02/17 14:20 Dose: 1 mg Vancomycin HCl 1,250 mg/ (Dextrose) 250 mls @ 166.667 mls/hr IVPB DAILY [facility] PRN Reason: Protocol Last Admin: 07/02/17 12:24 Dose: 166.667 mls/hr Piperacillin Sod/Tazobactam (Sod 4.5 gm/ Dextrose) 100 mls @ 200 mls/hr IVPB Q8H-IV [facility] PRN Reason: Protocol Last Admin: 07/02/17 11:16 Dose: 200 mls/hr Lamotrigine (Lamictal -) 200 mg GT BID [facility] Last Admin: 07/02/17 11:40 Dose: 200 mg Levothyroxine Sodium (Synthroid -) 50 mcg GT DAILY@0700 [facility] Last Admin: 07/01/17 06:00 Dose: Not Given Loratadine (Claritin -) 10 mg GT DAILY [facility] Last Admin: 07/02/17 11:40 Dose: 10 mg Ranitidine HCl (Zantac Oral Solution -) 150 mg PO DAILY [facility] Last Admin: 07/02/17 11:40 Dose: 150 mg Scopolamine HBr (Transderm-Scop -) 1 patch TD Q72H [facility] Last Admin: 07/01/17 10:48 Dose: 1 patch Senna (Senna Oral Solution -) 17.6 mg PEG HS [facility] Last Admin: 07/01/17 21:21 Dose: 17.6 mg Topiramate (Topamax -) 25 mg NR BID [facility] Last Admin: 07/02/17 11:42 Dose: 25 mg Valproate Sodium (Depakene -) 375 mg GT BID [facility] Last Admin: 07/02/17 11:41 Dose: 375 mg - Objective Vital Signs: Vital Signs Temperature 98.1 F 07/02/17 13:41 Pulse Rate 84 07/02/17 13:41 Respiratory Rate 23 07/02/17 13:41 Blood Pressure 107/58 07/02/17 13:41 O2 Sat by Pulse Oximetry (%) 98 07/02/17 10:47 Constitutional: Yes: Other Eyes: Yes: Conjunctiva Clear Cardiovascular: Yes: Regular Rate and Rhythm Respiratory: Yes: Regular, On Venti-Mask, Poor Air Entry, Rhonchi Gastrointestinal: Yes: Normal Bowel Sounds, Soft, Other (peg in place) Musculoskeletal: Yes: Other Extremities: Yes: Other Neurological: Yes: Alert, Other Labs: CBC, BMP 07/02/17 06:00 07/02/17 05:50 - ....Imaging Chest X-ray: Report Reviewed, Image Reviewed Assessment/Plan Problem List - Problems (1) Aspiration pneumonia Code(s): J69.0 - PNEUMONITIS DUE TO INHALATION OF FOOD AND VOMIT (2) Hypercapnia Code(s): R06.89 - OTHER ABNORMALITIES OF BREATHING (3) Seizure Code(s): R56.9 - UNSPECIFIED CONVULSIONS (4) Asthma Code(s): J45.909 - UNSPECIFIED ASTHMA, UNCOMPLICATED Qualifiers: Asthma severity: mild intermittent Asthma complication type: uncomplicated Qualified Code(s): J45.20 - Mild intermittent asthma, uncomplicated (5) GERD (gastroesophageal reflux disease) Code(s): K21.9 - GASTRO-ESOPHAGEAL REFLUX DISEASE WITHOUT ESOPHAGITIS (6) Cerebral palsy, quadriplegic Code(s): G80.8 - OTHER CEREBRAL PALSY (7) Hypothyroidism Code(s): E03.9 - HYPOTHYROIDISM, UNSPECIFIED (8) Mental retardation Code(s): F79 - UNSPECIFIED INTELLECTUAL DISABILITIES pseudomonas pna mrsa pna plan continue iv abx continue suctioning rest as per primary team continue resp support
[2017-07-02] MEDS: LEVOTHYROXINE NA 50 MCG TABLET (FP) GT SCH (19:53)
[2017-07-02] MEDS ORDERED: PT OWN MED DRAWER 7, Y5N ONE (20:32)
[2017-07-02] MEDS: CHLORHEXIDINE GLUCONATE 4% CLEANSER FOR DECOLONIZATION TP SCH (22:06)
[2017-07-02] MEDS: SENNOSIDES 8.8 MG/5 ML BULK BOTTLE PEG SCH (22:09)
[2017-07-03] MEDS: PIPERACILLIN/TAZOB 4.5 GM 4.5 GM in DEXTROSE 5%-WATER 100 ML IVPB SCH ×3 (02:41→17:30)
[2017-07-03] MEDS: GABAPENTIN 100 MG CAPSULE (FP) GT SCH ×3 (06:26→22:33)
[2017-07-03] MEDS: GLYCOPYRROLATE 1 MG TABLET GT SCH ×3 (06:27→22:33)
[2017-07-03] MEDS: LEVOTHYROXINE NA 50 MCG TABLET (FP) GT SCH (06:27)
[2017-07-03] MEDS: ALBUTEROL SO4 2.5/IPRATROPIUM 0.5 INH SOL 3 ML VIAL.NEB. NEB SCH ×5 (07:20→22:43)
[2017-07-03] MEDS ORDERED: PIPERACILLIN/TAZOBACTAM 4.5 GM VIAL IVPB ONE (08:52)
[2017-07-03] MEDS ORDERED: DEXTROSE 5%-WATER 100 ML IVPB ONE (08:53)
[2017-07-03 08:56] LABS: BASOPHIL 0.5 % (0-2.0); EOSINOPHIL 3.4 % (0-4.5); MCH 35.5 pg (25.7-33.7); MCHC 32.6 g/dl (32.0-35.9); MEAN CELL VOLUME 109.1 fl (80-96); MEAN PLT VOLUME 6.5 fl (7.5-11.1); NEUTROPHILS 53.1 % (42.8-82.8); PLATELET COUNT 451 K/MM3 (134-434); RDW 16.6 % (11.9-15.9); WHITE BLOOD COUNT 6.9 K/mm3 (4.0-10.0)
[2017-07-03 09:32] LABS: ALBUMIN 2.5 g/dl (3.4-5.0); ALK PHOS 239 U/L (45-117); ANION GAP 6 (8-16); BILIRUBIN,TOTAL 0.3 mg/dL (0.2-1.0); CALCIUM 9.8 mg/dL (8.5-10.1); CO2 35 mmol/L (21-32); CREATININE 0.7 mg/dL (0.7-1.3); GLUCOSE,RANDOM 81 mg/dL (74-106); SGOT/AST 21 U/L (15-37); SGPT/ALT 21 U/L (12-78); TOT PROT 7.8 g/dl (6.4-8.2)
--- NOTE | 2017-07-03 09:58 | PN ---
Progress Note (short form) - Note Progress Note: Neurology History of Present Illness 45-year-old male history of asthma, profound mental retardation, cerebral palsy , functional quadriplegia, recurrent epistaxis, seizure disorder, history of Katherine fundoplication (stomach wrapped to prevent reflux), s/p PEG, recurrent pneumonia, respiratory failure, oxygen dependent, sent from [facility] for upper respiratory congestion. CXR w/ progressive R infiltrate, effusion and congestion. Patient sedated, intubated and on mechanical ventilation in ICU care. Minimally responsive and does have underlying seizure disorder but no witnessed events at [facility]. Patient on IV Abx. ID following. Ativan PRN can also be used but no motor abnormal activity noted on exam or witnessed. He is less interactive today though limited cognition 2/2 mental retardation. No respiratory distress and calm today. Wearing non- rebreather. Saturations are better. Active Medications Albuterol/Ipratropium (Duoneb -) 1 amp NEB Q4HWA [facility] Last Admin: 07/03/17 07:20 Dose: 1 amp Artificial Tears (Artificial Tears) 1 drop OU BID PRN PRN Reason: DRY EYES Chlorhexidine Gluconate (Hibiclens For Decolonization -) 1 applic TP HS [facility] Last Admin: 07/02/17 22:06 Dose: Not Given Gabapentin (Neurontin -) 200 mg GT TID [facility] Last Admin: 07/03/17 06:26 Dose: 200 mg Glycopyrrolate (Robinul -) 1 mg GT TID [facility] Last Admin: 07/03/17 06:27 Dose: 1 mg Vancomycin HCl 1,250 mg/ (Dextrose) 250 mls @ 166.667 mls/hr IVPB DAILY [facility] PRN Reason: Protocol Last Admin: 07/02/17 12:24 Dose: 166.667 mls/hr Piperacillin Sod/Tazobactam (Sod 4.5 gm/ Dextrose) 100 mls @ 200 mls/hr IVPB Q8H-IV [facility] PRN Reason: Protocol Last Admin: 07/03/17 09:24 Dose: 200 mls/hr Lamotrigine (Lamictal -) 200 mg GT BID [facility] Last Admin: 07/02/17 22:06 Dose: 200 mg Levothyroxine Sodium (Synthroid -) 50 mcg GT DAILY@0700 [facility] Last Admin: 07/03/17 06:27 Dose: 50 mcg Loratadine (Claritin -) 10 mg GT DAILY [facility] Last Admin: 07/02/17 11:40 Dose: 10 mg Ranitidine HCl (Zantac Oral Solution -) 150 mg PO DAILY [facility] Last Admin: 07/02/17 11:40 Dose: 150 mg Scopolamine HBr (Transderm-Scop -) 1 patch TD Q72H [facility] Last Admin: 07/01/17 10:48 Dose: 1 patch Senna (Senna Oral Solution -) 17.6 mg PEG HS [facility] Last Admin: 07/02/17 22:09 Dose: 17.6 mg Topiramate (Topamax -) 25 mg NR BID [facility] Last Admin: 07/02/17 22:09 Dose: 25 mg Valproate Sodium (Depakene -) 375 mg GT BID [facility] Last Admin: 07/02/17 22:04 Dose: 375 mg *Physical Exam Last Vital Signs Temp Pulse Resp BP Pulse Ox 97.4 F L 88 22 116/81 97 07/03/17 09:53 07/03/17 09:53 07/03/17 09:53 07/03/17 09:53 07/02/17 23:54 General Appearance: Yes: Appropriately Dressed, not following commands, intubated on mechanical ventilation HEENT: positive: Other (mostly coagulated blood to tongue/teeth, possibly small tongue lac) Respiratory/Chest: positive: Rhonchi, Cardiovascular: positive: S1, S2 Gastrointestinal/Abdominal: positive: Soft. negative: Mass Integumentary: positive: Dry, Warm Neuro: Pupil responsive, not following commands, responds to pain and tactile stimulation, no apparent CN deficits, no abnormal motor activity, not participating in confrontation testing CBCD WBC 6.9 K/mm3 (4.0-10.0) 07/03/17 08:40 RBC 2.57 M/mm3 (4.00-5.60) L 07/03/17 08:40 Hgb 9.1 GM/dL (11.7-16.9) L 07/03/17 08:40 Hct 28.0 % (35.4-49) L 07/03/17 08:40 MCV 109.1 fl (80-96) H 07/03/17 08:40 MCHC 32.6 g/dl (32.0-35.9) 07/03/17 08:40 RDW 16.6 % (11.9-15.9) H 07/03/17 08:40 Plt Count 451 K/MM3 (134-434) H 07/03/17 08:40 MPV 6.5 fl (7.5-11.1) L 07/03/17 08:40 CMP Sodium 141 mmol/L (136-145) 07/03/17 08:40 Potassium 4.3 mmol/L (3.5-5.1) 07/03/17 08:40 Chloride 100 mmol/L (98-107) 07/03/17 08:40 Carbon Dioxide 35 mmol/L (21-32) H 07/03/17 08:40 Anion Gap 6 (8-16) L 07/03/17 08:40 BUN 15 mg/dL (7-18) 07/03/17 08:40 Creatinine 0.7 mg/dL (0.7-1.3) 07/03/17 08:40 Creat Clearance w eGFR > 60 (>60) 07/03/17 08:40 Calcium 9.8 mg/dL (8.5-10.1) 07/03/17 08:40 Total Bilirubin 0.3 mg/dL (0.2-1.0) D 07/03/17 08:40 AST 21 U/L (15-37) 07/03/17 08:40 ALT 21 U/L (12-78) 07/03/17 08:40 Alkaline Phosphatase 239 U/L (45-117) H 07/03/17 08:40 Total Protein 7.8 g/dl (6.4-8.2) 07/03/17 08:40 Albumin 2.5 g/dl (3.4-5.0) L 07/03/17 08:40 Medical Decision Making 45-year-old male history of asthma, profound mental retardation, cerebral palsy , functional quadriplegia, recurrent epistaxis, seizure disorder, history of Katherine fundoplication (stomach wrapped to prevent reflux), s/p PEG, recurrent pneumonia, respiratory failure, oxygen dependent, sent from [facility] for upper respiratory congestion. Previously in ICU and now on floor. There was concern for possible aspiration PNA. CXR w/ progressive R infiltrate, effusion and congestion. Extubated and not on mechanical ventilation with improving mental status but more restless today. Patient on IV Abx. ID following. Can continue seizure medications, Lamictal, Topamax, Valproate. Ativan PRN can also be used at low dose for agitation or if seizure occurs but no motor abnormal activity noted on exam or witnessed. Monitor closely, may need ICU care again if respiratory status deteriorates but for now saturations have improved. Will continue to follow.
[2017-07-03] MEDS: VALPROATE SODIUM 250 MG/5 ML UNIT DOSE CUP GT SCH ×2 (10:14→22:31)
[2017-07-03] MEDS: RANITIDINE HCL 150 MG/10 ML UNIT-DOSE CUP PO SCH (10:14)
[2017-07-03] MEDS: lamoTRIgine 100 MG TABLET (FP) GT SCH ×2 (10:15→22:33)
[2017-07-03] MEDS: LORATADINE 10 MG TABLET GT SCH (10:15)
[2017-07-03] MEDS: TOPIRAMATE 25 MG TABLET (FP) NR SCH ×2 (10:16→22:34)
[2017-07-03] MEDS: VANCOMYCIN 1,250 MG in DEXTROSE 5%-WATER - 250 ML IVPB SCH (10:43)
--- NOTE | 2017-07-03 12:49 | PN ---
Progress Note, Physician History of Present Illness: PULMONARY NO DISTRESS ,DROWSY,+ EPISTAXIS EARLIER - Current Medication List Current Medications: Active Medications Albuterol/Ipratropium (Duoneb -) 1 amp NEB Q4HWA [facility] Last Admin: 07/03/17 07:20 Dose: 1 amp Artificial Tears (Artificial Tears) 1 drop OU BID PRN PRN Reason: DRY EYES Chlorhexidine Gluconate (Hibiclens For Decolonization -) 1 applic TP HS [facility] Last Admin: 07/02/17 22:06 Dose: Not Given Gabapentin (Neurontin -) 200 mg GT TID [facility] Last Admin: 07/03/17 06:26 Dose: 200 mg Glycopyrrolate (Robinul -) 1 mg GT TID [facility] Last Admin: 07/03/17 06:27 Dose: 1 mg Vancomycin HCl 1,250 mg/ (Dextrose) 250 mls @ 166.667 mls/hr IVPB DAILY [facility] PRN Reason: Protocol Last Admin: 07/03/17 10:43 Dose: 166.667 mls/hr Piperacillin Sod/Tazobactam (Sod 4.5 gm/ Dextrose) 100 mls @ 200 mls/hr IVPB Q8H-IV [facility] PRN Reason: Protocol Last Admin: 07/03/17 09:24 Dose: 200 mls/hr Lamotrigine (Lamictal -) 200 mg GT BID [facility] Last Admin: 07/03/17 10:15 Dose: 200 mg Levothyroxine Sodium (Synthroid -) 50 mcg GT DAILY@0700 [facility] Last Admin: 07/03/17 06:27 Dose: 50 mcg Loratadine (Claritin -) 10 mg GT DAILY [facility] Last Admin: 07/03/17 10:15 Dose: 10 mg Ranitidine HCl (Zantac Oral Solution -) 150 mg PO DAILY [facility] Last Admin: 07/03/17 10:14 Dose: 150 mg Scopolamine HBr (Transderm-Scop -) 1 patch TD Q72H [facility] Last Admin: 07/01/17 10:48 Dose: 1 patch Senna (Senna Oral Solution -) 17.6 mg PEG HS [facility] Last Admin: 07/02/17 22:09 Dose: 17.6 mg Topiramate (Topamax -) 25 mg NR BID [facility] Last Admin: 07/03/17 10:16 Dose: 25 mg Valproate Sodium (Depakene -) 375 mg GT BID [facility] Last Admin: 07/03/17 10:14 Dose: 375 mg - Objective Vital Signs: Vital Signs Temperature 97.4 F L 07/03/17 09:53 Pulse Rate 88 07/03/17 10:57 Respiratory Rate 22 07/03/17 09:53 Blood Pressure 116/81 07/03/17 09:53 O2 Sat by Pulse Oximetry (%) 97 07/03/17 10:57 Constitutional: Yes: Well Nourished, Calm Eyes: Yes: WNL HENT: Yes: WNL Neck: Yes: WNL Cardiovascular: Yes: Regular Rate and Rhythm, S1, S2 Respiratory: Yes: Rhonchi (FEW SCATTERED SHAYY RHONCHI) Gastrointestinal: Yes: Normal Bowel Sounds, Soft Edema: No Labs: CBC, BMP 07/03/17 08:40 07/03/17 08:40 - ....Imaging Chest X-ray: Report Reviewed, Image Reviewed (improving) Assessment/Plan ASSESSMENT AND PLAN: Acute Hypoxic on Chronic Respiratory Failure Pneumonia Mental Retardation Cerebral Palsy Seizure Disorder Asthma - antibiotics per ID - aspiration precautions - inhaled bronchodilators - taper Fio2 to keep SpO2 >90% - antiepileptics, seizure precautions - DVT prophylaxis DR [place]
--- NOTE | 2017-07-03 14:55 | PN ---
Physical Exam: SUBJECTIVE: Patient seen and examined. He is awake, venti mask appears to be causing skin break down and bleeding to mouth Events: - Afebrile OBJECTIVE: Vital Signs Period Temp Pulse Resp BP Sys/Celestin Pulse Ox Last 24 Hr 97.4 F-98.2 F 66-88 22-26 100-134/52-81 97-98 PE Neuro: awake, non verbal cn 2-12intact HEENT: kirk red blood around oral mucosa, + dried blood to nares Pulm: course rhonchi anteriorly +VM CV: s1 s2 rrr no mrg Abd: + Gtube soft nd + bs Ext: +2 pedal edema, warm Laboratory Results - last 24 hr 07/03/17 07/03/17 08:40 08:40 WBC 6.9 RBC 2.57 L Hgb 9.1 L Hct 28.0 L MCV 109.1 H MCH 35.5 H MCHC 32.6 RDW 16.6 H Plt Count 451 H MPV 6.5 L Neutrophils % 53.1 Lymphocytes % 31.3 Monocytes % 11.7 H Eosinophils % 3.4 Basophils % 0.5 Sodium 141 Potassium 4.3 Chloride 100 Carbon Dioxide 35 H Anion Gap 6 L BUN 15 Creatinine 0.7 Creat Clearance w eGFR > 60 Random Glucose 81 Calcium 9.8 Total Bilirubin 0.3 D AST 21 ALT 21 Alkaline Phosphatase 239 H Total Protein 7.8 Albumin 2.5 L Active Medications Generic Name Dose Route Start Last Admin Trade Name Freq PRN Reason Stop Dose Admin Albuterol/Ipratropium 1 amp 07/01/17 07:30 07/03/17 13:52 Duoneb - NEB 1 amp Q4HWA GILL Administration Artificial Tears 1 drop 06/30/17 19:10 Artificial Tears OU BID PRN DRY EYES Chlorhexidine Gluconate 1 applic 06/30/17 22:00 07/02/17 22:06 Hibiclens For Decolonization - TP Not Given HS GILL Gabapentin 200 mg 06/30/17 22:00 07/03/17 14:28 Neurontin - GT 200 mg TID GILL Administration Glycopyrrolate 1 mg 06/30/17 22:00 07/03/17 14:28 Robinul - GT 1 mg TID GILL Administration Vancomycin HCl 1,250 mg/ 250 mls @ 166.667 mls/hr 07/01/17 10:00 07/03/17 10:43 Dextrose IVPB 166.667 mls/hr DAILY GILL Administration Protocol Piperacillin Sod/Tazobactam 100 mls @ 200 mls/hr 07/01/17 02:00 07/03/17 09:24 Sod 4.5 gm/ Dextrose IVPB 200 mls/hr Q8H-IV GILL Administration Protocol Lamotrigine 200 mg 06/30/17 22:00 07/03/17 10:15 Lamictal - GT 200 mg BID GLIL Administration Levothyroxine Sodium 50 mcg 07/01/17 07:00 07/03/17 06:27 Synthroid - GT 50 mcg DAILY@0700 G[facility] Administration Loratadine 10 mg 07/01/17 10:00 07/03/17 10:15 Claritin - GT 10 mg DAILY GILL Administration Ranitidine HCl 150 mg 07/01/17 10:00 07/03/17 10:14 Zantac Oral Solution - PO 150 mg DAILY GILL Administration Scopolamine HBr 1 patch 07/01/17 11:15 07/01/17 10:48 Transderm-Scop - TD 1 patch Q72H GILL Administration Senna 17.6 mg 06/30/17 22:00 07/02/17 22:09 Senna Oral Solution - PEG 17.6 mg HS GILL Administration Topiramate 25 mg 06/30/17 22:00 07/03/17 10:16 Topamax - NR 25 mg BID GILL Administration Valproate Sodium 375 mg 06/30/17 22:00 07/03/17 10:14 Depakene - GT 375 mg BID GILL Administration Assessment: 46 year old male with PMHx of asthma, profound mental retardation, cerebral palsy, functional quadriplegia, recurrent epistaxis, seizure disorder, history of Katherine fundoplication (stomach wrapped to prevent reflux), s/p PEG, recurrent pneumonia, respiratory failure, oxygen dependent, sent from [facility] for upper respiratory congestion. Hospital Course complicated by septic shock requiring intubation and vaso pressors, now off. Plan: 1. Acute hypoxic, hypercapneic respiratory failure - Wean off VM to NC, goal spo2 >92% - Extubated on 06/27 2. Septic shock 2/2 pneumonia - Continue Zosyn (day 3 ) - Continue Vancomycin (day 3) 3. Seizure disorder - Valproate 375mg BID - Lamictal 200mg BID - Topamax 25mg BID 4. Hypothyroidism - Continue synthroid 5. Chronic Anemia - Continue to trend 6. Nutrition - Tube feeds 7. Prophylaxis - SCDs bilaterally - Patient has history of bleeding with chemical dvt prophylaxis, will hold for now - Functional quadraplegia Dispo: - Return to [place] when tolerating 2L o2, this is the max Visit type - Emergency Visit Emergency Visit: Yes ED Registration Date: 06/22/17 Care time: The patient presented to the Emergency Department on the above date and was hospitalized for further evaluation of their emergent condition. - New Patient This patient is new to me today: Yes Date on this admission: 07/03/17 - Critical Care Critical Care patient: No
--- NOTE | 2017-07-03 15:37 | PN ---
Progress Note, Physician History of Present Illness: stable on 3 l has some dried blood on the mouth probably because of dried o2 calm foleys removed - Current Medication List Current Medications: Active Medications Albuterol/Ipratropium (Duoneb -) 1 amp NEB Q4HWA [facility] Last Admin: 07/03/17 13:52 Dose: 1 amp Artificial Tears (Artificial Tears) 1 drop OU BID PRN PRN Reason: DRY EYES Chlorhexidine Gluconate (Hibiclens For Decolonization -) 1 applic TP [facility] Last Admin: 07/02/17 22:06 Dose: Not Given Gabapentin (Neurontin -) 200 mg GT TID [facility] Last Admin: 07/03/17 14:28 Dose: 200 mg Glycopyrrolate (Robinul -) 1 mg GT TID [facility] Last Admin: 07/03/17 14:28 Dose: 1 mg Vancomycin HCl 1,250 mg/ (Dextrose) 250 mls @ 166.667 mls/hr IVPB DAILY [facility] PRN Reason: Protocol Last Admin: 07/03/17 10:43 Dose: 166.667 mls/hr Piperacillin Sod/Tazobactam (Sod 4.5 gm/ Dextrose) 100 mls @ 200 mls/hr IVPB Q8H-IV [facility]ILL PRN Reason: Protocol Last Admin: 07/03/17 09:24 Dose: 200 mls/hr Lamotrigine (Lamictal -) 200 mg GT BID [facility] Last Admin: 07/03/17 10:15 Dose: 200 mg Levothyroxine Sodium (Synthroid -) 50 mcg GT DAILY@0700 [facility] Last Admin: 07/03/17 06:27 Dose: 50 mcg Loratadine (Claritin -) 10 mg GT DAILY [facility] Last Admin: 07/03/17 10:15 Dose: 10 mg Ranitidine HCl (Zantac Oral Solution -) 150 mg PO DAILY [facility] Last Admin: 07/03/17 10:14 Dose: 150 mg Scopolamine HBr (Transderm-Scop -) 1 patch TD Q72H [facility] Last Admin: 07/01/17 10:48 Dose: 1 patch Senna (Senna Oral Solution -) 17.6 mg PEG HS [facility] Last Admin: 07/02/17 22:09 Dose: 17.6 mg Topiramate (Topamax -) 25 mg NR BID [facility] Last Admin: 07/03/17 10:16 Dose: 25 mg Valproate Sodium (Depakene -) 375 mg GT BID [facility] Last Admin: 07/03/17 10:14 Dose: 375 mg - Objective Vital Signs: Vital Signs Temperature 97.4 F L 07/03/17 09:53 Pulse Rate 88 07/03/17 10:57 Respiratory Rate 22 07/03/17 09:53 Blood Pressure 116/81 07/03/17 09:53 O2 Sat by Pulse Oximetry (%) 97 07/03/17 10:57 Constitutional: Yes: Other Cardiovascular: Yes: Regular Rate and Rhythm Respiratory: Yes: On Nasal O2, Poor Air Entry, Rhonchi, Other Gastrointestinal: Yes: Normal Bowel Sounds, Soft, Other (peg in place) Musculoskeletal: Yes: Other Extremities: Yes: Other Neurological: Yes: Alert, Other Labs: CBC, BMP 07/03/17 08:40 07/03/17 08:40 Assessment/Plan Problem List - Problems (1) Aspiration pneumonia Code(s): J69.0 - PNEUMONITIS DUE TO INHALATION OF FOOD AND VOMIT (2) Hypercapnia Code(s): R06.89 - OTHER ABNORMALITIES OF BREATHING (3) Seizure Code(s): R56.9 - UNSPECIFIED CONVULSIONS (4) Asthma Code(s): J45.909 - UNSPECIFIED ASTHMA, UNCOMPLICATED Qualifiers: Asthma severity: mild intermittent Asthma complication type: uncomplicated Qualified Code(s): J45.20 - Mild intermittent asthma, uncomplicated (5) GERD (gastroesophageal reflux disease) Code(s): K21.9 - GASTRO-ESOPHAGEAL REFLUX DISEASE WITHOUT ESOPHAGITIS (6) Cerebral palsy, quadriplegic Code(s): G80.8 - OTHER CEREBRAL PALSY (7) Hypothyroidism Code(s): E03.9 - HYPOTHYROIDISM, UNSPECIFIED (8) Mental retardation Code(s): F79 - UNSPECIFIED INTELLECTUAL DISABILITIES pseudomonas pna mrsa pna plan continue iv abx continue suctioning rest as per primary team continue resp support watch for hemoptysis resp support
[2017-07-03] MEDS: CHLORHEXIDINE GLUCONATE 4% CLEANSER FOR DECOLONIZATION TP SCH (22:32)
[2017-07-03] MEDS: SENNOSIDES 8.8 MG/5 ML BULK BOTTLE PEG SCH (22:33)
[2017-07-03] MEDS: ARTIFICIAL TEARS (POLYVINYL ALCOHOL 1.4%) OPTH DROPS OU PRN (22:34)
[2017-07-04] MEDS: PIPERACILLIN/TAZOB 4.5 GM 4.5 GM in DEXTROSE 5%-WATER 100 ML IVPB SCH ×3 (02:13→18:14)
[2017-07-04] MEDS: GLYCOPYRROLATE 1 MG TABLET GT SCH ×3 (06:40→22:58)
[2017-07-04] MEDS: LEVOTHYROXINE NA 50 MCG TABLET (FP) GT SCH (06:40)
[2017-07-04] MEDS: GABAPENTIN 100 MG CAPSULE (FP) GT SCH ×3 (06:40→22:58)
[2017-07-04] MEDS: ALBUTEROL SO4 2.5/IPRATROPIUM 0.5 INH SOL 3 ML VIAL.NEB. NEB SCH ×6 (06:56→22:30)
[2017-07-04 07:14] LABS: MCH 35.2 pg (25.7-33.7); MCHC 32.2 g/dl (32.0-35.9); MEAN CELL VOLUME 109.3 fl (80-96); MEAN PLT VOLUME 6.7 fl (7.5-11.1); PLATELET COUNT 526 K/MM3 (134-434); RDW 16.3 % (11.9-15.9); WHITE BLOOD COUNT 6.9 K/mm3 (4.0-10.0)
[2017-07-04 07:40] LABS: ALBUMIN 2.6 g/dl (3.4-5.0); ANION GAP 6 (8-16); CALCIUM 9.6 mg/dL (8.5-10.1); CO2 33 mmol/L (21-32); CREATININE 0.7 mg/dL (0.7-1.3); GLUCOSE,RANDOM 80 mg/dL (74-106); SGPT/ALT 17 U/L (12-78)
[2017-07-04 07:42] LABS: ALK PHOS 229 U/L (45-117); BILIRUBIN,TOTAL 0.6 mg/dL (0.2-1.0); TOT PROT 8.2 g/dl (6.4-8.2)
[2017-07-04 07:49] LABS: SGOT/AST 28 U/L (15-37)
--- NOTE | 2017-07-04 09:48 | PN ---
Progress Note (short form) - Note Progress Note: Neurology History of Present Illness 45-year-old male history of asthma, profound mental retardation, cerebral palsy , functional quadriplegia, recurrent epistaxis, seizure disorder, history of Katherine fundoplication (stomach wrapped to prevent reflux), s/p PEG, recurrent pneumonia, respiratory failure, oxygen dependent, sent from [facility] for upper respiratory congestion. CXR w/ progressive R infiltrate, effusion and congestion. No respiratory distress and calm today. Saturations are better. Has been stable on the floor and not needed to go back to ICU care. No seizures noted. Active Medications Albuterol/Ipratropium (Duoneb -) 1 amp NEB Q4HWA [facility] Last Admin: 07/04/17 06:56 Dose: 1 amp Artificial Tears (Artificial Tears) 1 drop OU BID PRN PRN Reason: DRY EYES Last Admin: 07/03/17 22:34 Dose: 1 drop Chlorhexidine Gluconate (Hibiclens For Decolonization -) 1 applic TP HS [facility] Last Admin: 07/03/17 22:32 Dose: Not Given Gabapentin (Neurontin -) 200 mg GT TID [facility] Last Admin: 07/04/17 06:40 Dose: 200 mg Glycopyrrolate (Robinul -) 1 mg GT TID [facility] Last Admin: 07/04/17 06:40 Dose: 1 mg Vancomycin HCl 1,250 mg/ (Dextrose) 250 mls @ 166.667 mls/hr IVPB DAILY [facility]ILL PRN Reason: Protocol Last Admin: 07/03/17 10:43 Dose: 166.667 mls/hr Piperacillin Sod/Tazobactam (Sod 4.5 gm/ Dextrose) 100 mls @ 200 mls/hr IVPB Q8H-IV GILL PRN Reason: Protocol Last Admin: 07/04/17 02:13 Dose: 200 mls/hr Lamotrigine (Lamictal -) 200 mg GT BID [facility] Last Admin: 07/03/17 22:33 Dose: 200 mg Levothyroxine Sodium (Synthroid -) 50 mcg GT DAILY@0700 [facility] Last Admin: 07/04/17 06:40 Dose: 50 mcg Loratadine (Claritin -) 10 mg GT DAILY [facility] Last Admin: 07/03/17 10:15 Dose: 10 mg Ranitidine HCl (Zantac Oral Solution -) 150 mg PO DAILY [facility] Last Admin: 07/03/17 10:14 Dose: 150 mg Scopolamine HBr (Transderm-Scop -) 1 patch TD Q72H [facility] Last Admin: 07/01/17 10:48 Dose: 1 patch Senna (Senna Oral Solution -) 17.6 mg PEG HS [facility] Last Admin: 07/03/17 22:33 Dose: 17.6 mg Topiramate (Topamax -) 25 mg NR BID [facility] Last Admin: 07/03/17 22:34 Dose: 25 mg Valproate Sodium (Depakene -) 375 mg GT BID [facility] Last Admin: 07/03/17 22:31 Dose: 375 mg *Physical Exam Vital Signs Temperature 97.7 F 07/04/17 06:00 Pulse Rate 62 07/04/17 06:00 Respiratory Rate 18 07/04/17 06:00 Blood Pressure 110/53 07/04/17 06:00 O2 Sat by Pulse Oximetry (%) 97 07/03/17 22:00 General Appearance: Yes: Appropriately Dressed, not following commands, intubated on mechanical ventilation HEENT: positive: Other (mostly coagulated blood to tongue/teeth, possibly small tongue lac) Respiratory/Chest: positive: Rhonchi, Cardiovascular: positive: S1, S2 Gastrointestinal/Abdominal: positive: Soft. negative: Mass Integumentary: positive: Dry, Warm Neuro: Pupil responsive, not following commands, responds to pain and tactile stimulation, no apparent CN deficits, no abnormal motor activity, not participating in confrontation testing CBCD WBC 6.9 K/mm3 (4.0-10.0) 07/04/17 06:15 RBC 2.67 M/mm3 (4.00-5.60) L 07/04/17 06:15 Hgb 9.4 GM/dL (11.7-16.9) L 07/04/17 06:15 Hct 29.2 % (35.4-49) L 07/04/17 06:15 MCV 109.3 fl (80-96) H 07/04/17 06:15 MCHC 32.2 g/dl (32.0-35.9) 07/04/17 06:15 RDW 16.3 % (11.9-15.9) H 07/04/17 06:15 Plt Count 526 K/MM3 (134-434) H 07/04/17 06:15 MPV 6.7 fl (7.5-11.1) L 07/04/17 06:15 CMP Sodium 139 mmol/L (136-145) 07/04/17 06:15 Potassium 4.7 mmol/L (3.5-5.1) 07/04/17 06:15 Chloride 100 mmol/L (98-107) 07/04/17 06:15 Carbon Dioxide 33 mmol/L (21-32) H 07/04/17 06:15 Anion Gap 6 (8-16) L 07/04/17 06:15 BUN 16 mg/dL (7-18) 07/04/17 06:15 Creatinine 0.7 mg/dL (0.7-1.3) 07/04/17 06:15 Creat Clearance w eGFR > 60 (>60) 07/04/17 06:15 Calcium 9.6 mg/dL (8.5-10.1) 07/04/17 06:15 Total Bilirubin 0.6 mg/dL (0.2-1.0) D 07/04/17 06:15 AST 28 U/L (15-37) D 07/04/17 06:15 ALT 17 U/L (12-78) 07/04/17 06:15 Alkaline Phosphatase 229 U/L (45-117) H 07/04/17 06:15 Total Protein 8.2 g/dl (6.4-8.2) 07/04/17 06:15 Albumin 2.6 g/dl (3.4-5.0) L 07/04/17 06:15 Medical Decision Making 45-year-old male history of asthma, profound mental retardation, cerebral palsy , functional quadriplegia, recurrent epistaxis, seizure disorder, history of Katherine fundoplication (stomach wrapped to prevent reflux), s/p PEG, recurrent pneumonia, respiratory failure, oxygen dependent, sent from [facility] for upper respiratory congestion. Previously in ICU and now on floor. There was concern for possible aspiration PNA. CXR w/ progressive R infiltrate, effusion and congestion. Extubated and not on mechanical ventilation with improving mental status but more restless today. Patient on IV Abx, Zosyn. ID following. Can continue seizure medications, Lamictal, Topamax, Valproate. Ativan PRN can also be used at low dose for agitation or if seizure occurs but no motor abnormal activity noted on exam or witnessed. Monitor closely, may need ICU care again if respiratory status deteriorates but for now saturations have improved. Will continue to follow.
[2017-07-04] MEDS ORDERED: PT OWN MED DRAWER 7, Y5N ONE (10:23)
[2017-07-04] MEDS ORDERED: PIPERACILLIN/TAZOBACTAM 4.5 GM VIAL IVPB ONE ×2 (10:23→17:46)
[2017-07-04] MEDS ORDERED: DEXTROSE 5%-WATER 100 ML IVPB ONE ×2 (10:23→17:46)
[2017-07-04] MEDS: LORATADINE 10 MG TABLET GT SCH (10:27)
[2017-07-04] MEDS: RANITIDINE HCL 150 MG/10 ML UNIT-DOSE CUP PO SCH (10:27)
[2017-07-04] MEDS: VALPROATE SODIUM 250 MG/5 ML UNIT DOSE CUP GT SCH ×2 (10:27→22:57)
[2017-07-04] MEDS: TOPIRAMATE 25 MG TABLET (FP) NR SCH ×2 (10:27→22:59)
[2017-07-04] MEDS: SCOPOLAMINE HYDROBROMIDE 1 PATCH PATCH.TD72 TD SCH (10:28)
[2017-07-04] MEDS: lamoTRIgine 100 MG TABLET (FP) GT SCH ×2 (10:28→22:58)
[2017-07-04] MEDS: VANCOMYCIN 1,250 MG in DEXTROSE 5%-WATER - 250 ML IVPB SCH (11:24)
--- NOTE | 2017-07-04 11:48 | PN ---
Progress Note (short form) - Note Progress Note: PULMONARY MYOCLONIC JERKS EPISTAXSIS WITH DRIED BLOOD AROUND LIPS VSS/AFEBRILE PALE SCATTERED RHONCHI/WHEEZE S1S2 BS+ MILD EDEMA LOWER EXT LABS/MEDS/NOTES/MICRO IMAGING REVIEWED Acute Hypoxic on Chronic Respiratory Failure Pneumonia Mental Retardation Cerebral Palsy Seizure Disorder Asthma - continue antibiotics per ID - aspiration precautions - inhaled bronchodilators - taper Fio2 to keep SpO2 >90% - antiepileptics, seizure precautions - DVT prophylaxis - May need ENT Zeynep ONEAL MD
--- NOTE | 2017-07-04 14:44 | PN ---
Progress Note, Physician History of Present Illness: blood seen on the mouth patient comfortable still on 3 litres of o2 awake has been afebrile - Current Medication List Current Medications: Active Medications Albuterol/Ipratropium (Duoneb -) 1 amp NEB Q4HWA [facility] Last Admin: 07/04/17 10:39 Dose: 1 amp Artificial Tears (Artificial Tears) 1 drop OU BID PRN PRN Reason: DRY EYES Last Admin: 07/03/17 22:34 Dose: 1 drop Chlorhexidine Gluconate (Hibiclens For Decolonization -) 1 applic TP HS [facility] Last Admin: 07/03/17 22:32 Dose: Not Given Gabapentin (Neurontin -) 200 mg GT TID [facility] Last Admin: 07/04/17 06:40 Dose: 200 mg Glycopyrrolate (Robinul -) 1 mg GT TID [facility] Last Admin: 07/04/17 06:40 Dose: 1 mg Vancomycin HCl 1,250 mg/ (Dextrose) 250 mls @ 166.667 mls/hr IVPB DAILY [facility] PRN Reason: Protocol Last Admin: 07/04/17 11:24 Dose: 166.667 mls/hr Piperacillin Sod/Tazobactam (Sod 4.5 gm/ Dextrose) 100 mls @ 200 mls/hr IVPB Q8H-IV [facility] PRN Reason: Protocol Last Admin: 07/04/17 10:25 Dose: 200 mls/hr Lamotrigine (Lamictal -) 200 mg GT BID [facility] Last Admin: 07/04/17 10:28 Dose: 200 mg Levothyroxine Sodium (Synthroid -) 50 mcg GT DAILY@0700 [facility] Last Admin: 07/04/17 06:40 Dose: 50 mcg Loratadine (Claritin -) 10 mg GT DAILY [facility] Last Admin: 07/04/17 10:27 Dose: 10 mg Ranitidine HCl (Zantac Oral Solution -) 150 mg PO DAILY [facility] Last Admin: 07/04/17 10:27 Dose: 150 mg Scopolamine HBr (Transderm-Scop -) 1 patch TD Q72H [facility] Last Admin: 07/04/17 10:28 Dose: 1 patch Senna (Senna Oral Solution -) 17.6 mg PEG HS [facility] Last Admin: 07/03/17 22:33 Dose: 17.6 mg Topiramate (Topamax -) 25 mg NR BID [facility] Last Admin: 07/04/17 10:27 Dose: 25 mg Valproate Sodium (Depakene -) 375 mg GT BID [facility] Last Admin: 07/04/17 10:27 Dose: 375 mg - Objective Vital Signs: Vital Signs Temperature 99 F 07/04/17 09:53 Pulse Rate 77 07/04/17 09:53 Respiratory Rate 18 07/04/17 09:53 Blood Pressure 105/70 07/04/17 09:53 O2 Sat by Pulse Oximetry (%) 94 L 07/04/17 09:00 Constitutional: Yes: No Distress, Calm Cardiovascular: Yes: Regular Rate and Rhythm Respiratory: Yes: Poor Air Entry, Rhonchi Gastrointestinal: Yes: Normal Bowel Sounds, Soft Musculoskeletal: Yes: Other Extremities: Yes: Other Neurological: Yes: Alert, Other Labs: CBC, BMP 07/04/17 06:15 07/04/17 06:15 Assessment/Plan Problem List - Problems (1) Aspiration pneumonia Code(s): J69.0 - PNEUMONITIS DUE TO INHALATION OF FOOD AND VOMIT (2) Hypercapnia Code(s): R06.89 - OTHER ABNORMALITIES OF BREATHING (3) Seizure Code(s): R56.9 - UNSPECIFIED CONVULSIONS (4) Asthma Code(s): J45.909 - UNSPECIFIED ASTHMA, UNCOMPLICATED Qualifiers: Asthma severity: mild intermittent Asthma complication type: uncomplicated Qualified Code(s): J45.20 - Mild intermittent asthma, uncomplicated (5) GERD (gastroesophageal reflux disease) Code(s): K21.9 - GASTRO-ESOPHAGEAL REFLUX DISEASE WITHOUT ESOPHAGITIS (6) Cerebral palsy, quadriplegic Code(s): G80.8 - OTHER CEREBRAL PALSY (7) Hypothyroidism Code(s): E03.9 - HYPOTHYROIDISM, UNSPECIFIED (8) Mental retardation Code(s): F79 - UNSPECIFIED INTELLECTUAL DISABILITIES pseudomonas pna mrsa pna plan continue iv abx continue suctioning rest as per primary team continue resp support will stop rekha
[2017-07-04] MEDS ORDERED: OXYMETAZOLINE 0.05% NASAL SOLUTION 15 ML BOTTLE NS ONE (16:12)
--- NOTE | 2017-07-04 16:14 | PN ---
Physical Exam: SUBJECTIVE: Patient seen and examined. He is awake, he is touches his nose cause it to re bleed. Events: - R nares epistaxis OBJECTIVE: Vital Signs Period Temp Pulse Resp BP Sys/Celestin Pulse Ox Last 24 Hr 97.7 F-99 F 62-77 18-22 105-114/53-74 94-97 PE Neuro: alert, awake, cn 2-12intact HEENT: R nares bleeding Pulm: course breath sounds, rhonchi, + NC Abd: GT cdi, s nt nd +bs Ext: warm, +2 pedal edema Laboratory Results - last 24 hr 07/04/17 07/04/17 06:15 06:15 WBC 6.9 RBC 2.67 L Hgb 9.4 L Hct 29.2 L MCV 109.3 H MCH 35.2 H MCHC 32.2 RDW 16.3 H Plt Count 526 H MPV 6.7 L Sodium 139 Potassium 4.7 Chloride 100 Carbon Dioxide 33 H Anion Gap 6 L BUN 16 Creatinine 0.7 Creat Clearance w eGFR > 60 Random Glucose 80 Calcium 9.6 Total Bilirubin 0.6 D AST 28 D ALT 17 Alkaline Phosphatase 229 H Total Protein 8.2 Albumin 2.6 L Current Medications Generic Name Dose Route Start Last Admin Trade Name Freq PRN Reason Stop Dose Admin Albuterol/Ipratropium 1 amp 07/01/17 07:30 07/04/17 10:39 Duoneb - NEB 1 amp Q4HWA [facility]ILL Administration Artificial Tears 1 drop 06/30/17 19:10 07/03/17 22:34 Artificial Tears OU 1 drop BID PRN Administration DRY EYES Gabapentin 200 mg 06/30/17 22:00 07/04/17 15:19 Neurontin - GT 200 mg TID GILL Administration Glycopyrrolate 1 mg 06/30/17 22:00 07/04/17 15:19 Robinul - GT 1 mg TID [facility] Administration Piperacillin Sod/Tazobactam 100 mls @ 200 mls/hr 07/01/17 02:00 07/04/17 10:25 Sod 4.5 gm/ Dextrose IVPB 200 mls/hr Q8H-IV [facility] Administration Protocol Lamotrigine 200 mg 06/30/17 22:00 07/04/17 10:28 Lamictal - GT 200 mg BID [facility] Administration Levothyroxine Sodium 50 mcg 07/01/17 07:00 07/04/17 06:40 Synthroid - GT 50 mcg DAILY@0700 [facility] Administration Loratadine 10 mg 07/01/17 10:00 07/04/17 10:27 Claritin - GT 10 mg DAILY [facility] Administration Scopolamine HBr 1 patch 07/01/17 11:15 07/04/17 10:28 Transderm-Scop - TD 1 patch Q72H [facility] Administration Senna 17.6 mg 06/30/17 22:00 07/03/17 22:33 Senna Oral Solution - PEG 17.6 mg HS [facility] Administration Topiramate 25 mg 06/30/17 22:00 07/04/17 10:27 Topamax - NR 25 mg BID [facility] Administration Valproate Sodium 375 mg 06/30/17 22:00 07/04/17 10:27 Depakene - GT 375 mg BID [facility] Administration Assessment: 46 year old male with PMHx of asthma, profound mental retardation, cerebral palsy, functional quadriplegia, recurrent epistaxis, seizure disorder, history of Katherine fundoplication (stomach wrapped to prevent reflux), s/p PEG, recurrent pneumonia, respiratory failure, oxygen dependent, sent from [facility] for upper respiratory congestion. Hospital Course complicated by septic shock requiring intubation and vaso pressors, now off. Plan: 1. Acute hypoxic, hypercapneic respiratory failure - NC 3L goal spo2 >92% - Extubated on 06/27 2. Septic shock 2/2 pneumonia - Continue Zosyn (day 4) - Vancomycin stopped 3. Epistaxis - Trial afrin 1 spray x1 r narnes - Continue suctioning - If no improvement consider ENT consult 4. Seizure disorder - Valproate 375mg BID - Lamictal 200mg BID - Topamax 25mg BID 5. Hypothyroidism - Continue Synthroid 6. Chronic Anemia - Continue to trend 7. Nutrition - Tube feeds 8. Prophylaxis - SCDs bilaterally - Patient has history of bleeding with chemical dvt prophylaxis, will hold - Functional quadraplegia Dispo: - Return to [place] when tolerating 2L o2, this is the max Visit type - Emergency Visit Emergency Visit: Yes ED Registration Date: 06/22/17 Care time: The patient presented to the Emergency Department on the above date and was hospitalized for further evaluation of their emergent condition. - New Patient This patient is new to me today: No - Critical Care Critical Care patient: No
[2017-07-04] MEDS: ARTIFICIAL TEARS (POLYVINYL ALCOHOL 1.4%) OPTH DROPS OU PRN (22:59)
[2017-07-04] MEDS: SENNOSIDES 8.8 MG/5 ML BULK BOTTLE PEG SCH (23:04)
[2017-07-05] MEDS: PIPERACILLIN/TAZOB 4.5 GM 4.5 GM in DEXTROSE 5%-WATER 100 ML IVPB SCH ×2 (02:17→10:21)
[2017-07-05] MEDS: ALBUTEROL SO4 2.5/IPRATROPIUM 0.5 INH SOL 3 ML VIAL.NEB. NEB SCH ×5 (06:45→22:20)
[2017-07-05] MEDS: GABAPENTIN 100 MG CAPSULE (FP) GT SCH ×3 (06:47→21:50)
[2017-07-05] MEDS: LEVOTHYROXINE NA 50 MCG TABLET (FP) GT SCH (06:47)
[2017-07-05] MEDS: GLYCOPYRROLATE 1 MG TABLET GT SCH ×3 (06:47→21:50)
[2017-07-05] MEDS ORDERED: PT OWN MED DRAWER 7, Y5N ONE ×4 (10:11→20:05)
[2017-07-05] MEDS ORDERED: PIPERACILLIN/TAZOBACTAM 4.5 GM VIAL IVPB ONE (10:11)
[2017-07-05] MEDS ORDERED: DEXTROSE 5%-WATER 100 ML IVPB ONE (10:11)
[2017-07-05] MEDS: TOPIRAMATE 25 MG TABLET (FP) NR SCH ×2 (10:22→21:53)
[2017-07-05] MEDS: LORATADINE 10 MG TABLET GT SCH (10:22)
[2017-07-05] MEDS: VALPROATE SODIUM 250 MG/5 ML UNIT DOSE CUP GT SCH ×2 (10:22→21:48)
[2017-07-05] MEDS: lamoTRIgine 100 MG TABLET (FP) GT SCH ×2 (10:23→21:49)
[2017-07-05] MEDS: guaiFENesin 200 MG/10 ML 10 ML UNIT-DOSE CUPS GT PRN ×2 (11:37→21:53)
--- NOTE | 2017-07-05 12:08 | PN ---
Physical Exam: SUBJECTIVE: Patient seen and examined at the bedside. He is non verbal at baseline. OBJECTIVE: Continues to have epitaxis of the left nare, on humified oxygen and Afrin Will order ENT consult Vital Signs Period Temp Pulse Resp BP Sys/Celestin Pulse Ox Last 24 Hr 98.1 F-98.6 F 67-86 18-18 92-122/46-76 94 GENERAL: Awake, alert, non verbal at baseline, brief eye contact LUNGS: diminished lung sounds, increased rhonchi compared to yesterday. Lasix 40mg x 1 ordered ABDOMEN: +peg tube UPPER EXTREMITIES: No peripheral edema. LOWER EXTREMITIES: non pitting edema on bilateral feet NEUROLOGICAL: awake, alert Active Medications Generic Name Dose Route Start Last Admin Trade Name Freq PRN Reason Stop Dose Admin Albuterol/Ipratropium 1 amp 07/01/17 07:30 07/05/17 06:45 Duoneb - NEB 1 amp Q4HWA [facility] Administration Artificial Tears 1 drop 06/30/17 19:10 07/04/17 22:59 Artificial Tears OU 1 drop BID PRN Administration DRY EYES Gabapentin 200 mg 06/30/17 22:00 07/05/17 06:47 Neurontin - GT 200 mg TID [facility] Administration Glycopyrrolate 1 mg 06/30/17 22:00 07/05/17 06:47 Robinul - GT 1 mg TID [facility] Administration Guaifenesin 10 ml 07/05/17 10:24 07/05/17 11:37 Robitussin - GT 10 ml Q6H PRN Administration COUGH Piperacillin Sod/Tazobactam 100 mls @ 200 mls/hr 07/01/17 02:00 07/05/17 10:21 Sod 4.5 gm/ Dextrose IVPB 200 mls/hr Q8H-IV [facility] Administration Protocol Lamotrigine 200 mg 06/30/17 22:00 07/05/17 10:23 Lamictal - GT 200 mg BID [facility] Administration Levothyroxine Sodium 50 mcg 07/01/17 07:00 07/05/17 06:47 Synthroid - GT 50 mcg DAILY@0700 [facility] Administration Loratadine 10 mg 07/01/17 10:00 07/05/17 10:22 Claritin - GT 10 mg DAILY [facility] Administration Mupirocin 1 applic 07/05/17 14:00 Bactroban 2% Ointment - TP TID [facility] Scopolamine HBr 1 patch 07/01/17 11:15 07/04/17 10:28 Transderm-Scop - TD 1 patch Q72H [facility] Administration Senna 17.6 mg 06/30/17 22:00 07/04/17 23:04 Senna Oral Solution - PEG Not Given HS GILL Topiramate 25 mg 06/30/17 22:00 07/05/17 10:22 Topamax - NR 25 mg BID [facility] Administration Valproate Sodium 375 mg 06/30/17 22:00 07/05/17 10:22 Depakene - GT 375 mg BID [facility] Administration ASSESSMENT/PLAN: Patient is a 46 year old male with a significant past medical history of asthma , profound mental retardation, cerebral palsy, functional quadriplegia, recurrent epistaxis, seizure disorder, history of Katherine fundoplication ( stomach wrapped to prevent reflux), s/p PEG, recurrent pneumonia, respiratory failure, oxygen dependent, sent from [facility] on for upper respiratory congestion and difficulty breathing. ID: Septic Shock likely 2/2 to Aspiration pnemonia, vs HCAP/upper respiratory infection with respiratory Failure - resolving A/P: Antibiotics d/cd by ID today Will monitor off antibiotics On scheduled duonebs Monitor respiratory status closely, now on 2 liters Pulmonary following Neurology: Seizure disorder - chronic A/P: On admission patient presented with dry blood on oral cavity with tongue laceration Now has epitaxis of left nare ENT consult Endocrine: Hypothyroidism - chronic A/P: On Synthroid TSH within normal limits Cerebral Palsy/Qudriplegic - chronic A/P: Turn and position Dependent on all ADLs Hematology: Thrombocytopenia - resolved A/P: monitor with CBC in a.m. Anemia - stable A/P; low h/h, low stable, monitor F.E.N. Fluids: tolerating tube feeds Electrolytes: monitor DVT Proph: DVT: SCDs GI: Protonix ivpb Disposition: Full Code. Visit type - Emergency Visit Emergency Visit: Yes ED Registration Date: 06/22/17 Care time: The patient presented to the Emergency Department on the above date and was hospitalized for further evaluation of their emergent condition. - New Patient This patient is new to me today: No - Critical Care Critical Care patient: No - Discharge Referral Referred to [facility] Med P.C.: No
--- NOTE | 2017-07-05 12:48 | PN ---
Progress Note, Physician History of Present Illness: blood seen on the mouth comfortable ent going to see the patient still with blood in the mouth 02 now on 2 litres - Current Medication List Current Medications: Active Medications Albuterol/Ipratropium (Duoneb -) 1 amp NEB Q4HWA [facility] Last Admin: 07/05/17 06:45 Dose: 1 amp Artificial Tears (Artificial Tears) 1 drop OU BID PRN PRN Reason: DRY EYES Last Admin: 07/04/17 22:59 Dose: 1 drop Gabapentin (Neurontin -) 200 mg GT TID [facility] Last Admin: 07/05/17 06:47 Dose: 200 mg Glycopyrrolate (Robinul -) 1 mg GT TID [facility] Last Admin: 07/05/17 06:47 Dose: 1 mg Guaifenesin (Robitussin -) 10 ml GT Q6H PRN PRN Reason: COUGH Last Admin: 07/05/17 11:37 Dose: 10 ml Piperacillin Sod/Tazobactam (Sod 4.5 gm/ Dextrose) 100 mls @ 200 mls/hr IVPB Q8H-IV [facility] PRN Reason: Protocol Last Admin: 07/05/17 10:21 Dose: 200 mls/hr Lamotrigine (Lamictal -) 200 mg GT BID [facility] Last Admin: 07/05/17 10:23 Dose: 200 mg Levothyroxine Sodium (Synthroid -) 50 mcg GT DAILY@0700 [facility] Last Admin: 07/05/17 06:47 Dose: 50 mcg Loratadine (Claritin -) 10 mg GT DAILY [facility] Last Admin: 07/05/17 10:22 Dose: 10 mg Mupirocin (Bactroban 2% Ointment -) 1 applic TP TID [facility] Scopolamine HBr (Transderm-Scop -) 1 patch TD Q72H [facility] Last Admin: 07/04/17 10:28 Dose: 1 patch Senna (Senna Oral Solution -) 17.6 mg PEG HS [facility] Last Admin: 07/04/17 23:04 Dose: Not Given Topiramate (Topamax -) 25 mg NR BID [facility] Last Admin: 07/05/17 10:22 Dose: 25 mg Valproate Sodium (Depakene -) 375 mg GT BID [facility] Last Admin: 07/05/17 10:22 Dose: 375 mg - Objective Vital Signs: Vital Signs Temperature 98.5 F 07/05/17 06:00 Pulse Rate 67 07/05/17 06:00 Respiratory Rate 18 07/05/17 06:00 Blood Pressure 122/76 07/05/17 06:00 O2 Sat by Pulse Oximetry (%) 94 L 07/04/17 21:00 Constitutional: Yes: No Distress, Calm HENT: Yes: Other (blood in the mouth) Neck: Yes: Other Cardiovascular: Yes: Regular Rate and Rhythm Respiratory: Yes: On Nasal O2, Rhonchi Gastrointestinal: Yes: Normal Bowel Sounds, Soft Musculoskeletal: Yes: WNL Extremities: Yes: WNL Neurological: Yes: Alert, Other Labs: CBC, BMP 07/04/17 06:15 07/04/17 06:15 Assessment/Plan Problem List - Problems (1) Aspiration pneumonia Code(s): J69.0 - PNEUMONITIS DUE TO INHALATION OF FOOD AND VOMIT (2) Hypercapnia Code(s): R06.89 - OTHER ABNORMALITIES OF BREATHING (3) Seizure Code(s): R56.9 - UNSPECIFIED CONVULSIONS (4) Asthma Code(s): J45.909 - UNSPECIFIED ASTHMA, UNCOMPLICATED Qualifiers: Asthma severity: mild intermittent Asthma complication type: uncomplicated Qualified Code(s): J45.20 - Mild intermittent asthma, uncomplicated (5) GERD (gastroesophageal reflux disease) Code(s): K21.9 - GASTRO-ESOPHAGEAL REFLUX DISEASE WITHOUT ESOPHAGITIS (6) Cerebral palsy, quadriplegic Code(s): G80.8 - OTHER CEREBRAL PALSY (7) Hypothyroidism Code(s): E03.9 - HYPOTHYROIDISM, UNSPECIFIED (8) Mental retardation Code(s): F79 - UNSPECIFIED INTELLECTUAL DISABILITIES pseudomonas pna mrsa pna plan will stop all abx and watch chances of aspiration are there so aspiration precautions continue suctioning rest as per primary team continue resp support
--- NOTE | 2017-07-05 13:23 | PN ---
Progress Note (short form) - Note Progress Note: Neurology History of Present Illness 45-year-old male history of asthma, profound mental retardation, cerebral palsy , functional quadriplegia, recurrent epistaxis, seizure disorder, history of Katherine fundoplication (stomach wrapped to prevent reflux), s/p PEG, recurrent pneumonia, respiratory failure, oxygen dependent, sent from [facility] for upper respiratory congestion. CXR w/ progressive R infiltrate, effusion and congestion. No respiratory distress and calm today. Saturations are better. Has been stable on the floor and not needed to go back to ICU care. No seizures noted. Irritable today and trying to get out of bed. ENT evaluating nosebleed. Oxygen saturation improved, now on 2L, reduced from 3L. Active Medications Albuterol/Ipratropium (Duoneb -) 1 amp NEB Q4HWA [facility] Last Admin: 07/05/17 06:45 Dose: 1 amp Artificial Tears (Artificial Tears) 1 drop OU BID PRN PRN Reason: DRY EYES Last Admin: 07/04/17 22:59 Dose: 1 drop Gabapentin (Neurontin -) 200 mg GT TID [facility] Last Admin: 07/05/17 06:47 Dose: 200 mg Glycopyrrolate (Robinul -) 1 mg GT TID [facility] Last Admin: 07/05/17 06:47 Dose: 1 mg Guaifenesin (Robitussin -) 10 ml GT Q6H PRN PRN Reason: COUGH Last Admin: 07/05/17 11:37 Dose: 10 ml Lamotrigine (Lamictal -) 200 mg GT BID [facility] Last Admin: 07/05/17 10:23 Dose: 200 mg Levothyroxine Sodium (Synthroid -) 50 mcg GT DAILY@0700 [facility] Last Admin: 07/05/17 06:47 Dose: 50 mcg Loratadine (Claritin -) 10 mg GT DAILY [facility] Last Admin: 07/05/17 10:22 Dose: 10 mg Mupirocin (Bactroban 2% Ointment -) 1 applic TP TID [facility] Scopolamine HBr (Transderm-Scop -) 1 patch TD Q72H [facility] Last Admin: 07/04/17 10:28 Dose: 1 patch Senna (Senna Oral Solution -) 17.6 mg PEG HS [facility] Last Admin: 07/04/17 23:04 Dose: Not Given Topiramate (Topamax -) 25 mg NR BID [facility] Last Admin: 07/05/17 10:22 Dose: 25 mg Valproate Sodium (Depakene -) 375 mg GT BID [facility] Last Admin: 07/05/17 10:22 Dose: 375 mg *Physical Exam Last Vital Signs Temp Pulse Resp BP Pulse Ox 97.8 F 76 18 131/66 93 L 07/05/17 10:00 07/05/17 10:00 07/05/17 10:00 07/05/17 10:00 07/05/17 09:00 General Appearance: Yes: Appropriately Dressed, not following commands, intubated on mechanical ventilation HEENT: positive: Other (mostly coagulated blood to tongue/teeth, possibly small tongue lac) Respiratory/Chest: positive: Rhonchi, Cardiovascular: positive: S1, S2 Gastrointestinal/Abdominal: positive: Soft. negative: Mass Integumentary: positive: Dry, Warm Neuro: Pupil responsive, not following commands, responds to pain and tactile stimulation, no apparent CN deficits, no abnormal motor activity, not participating in confrontation testing CBCD WBC 6.9 K/mm3 (4.0-10.0) 07/04/17 06:15 RBC 2.67 M/mm3 (4.00-5.60) L 07/04/17 06:15 Hgb 9.4 GM/dL (11.7-16.9) L 07/04/17 06:15 Hct 29.2 % (35.4-49) L 07/04/17 06:15 MCV 109.3 fl (80-96) H 07/04/17 06:15 MCHC 32.2 g/dl (32.0-35.9) 07/04/17 06:15 RDW 16.3 % (11.9-15.9) H 07/04/17 06:15 Plt Count 526 K/MM3 (134-434) H 07/04/17 06:15 MPV 6.7 fl (7.5-11.1) L 07/04/17 06:15 CMP Sodium 139 mmol/L (136-145) 07/04/17 06:15 Potassium 4.7 mmol/L (3.5-5.1) 07/04/17 06:15 Chloride 100 mmol/L (98-107) 07/04/17 06:15 Carbon Dioxide 33 mmol/L (21-32) H 07/04/17 06:15 Anion Gap 6 (8-16) L 07/04/17 06:15 BUN 16 mg/dL (7-18) 07/04/17 06:15 Creatinine 0.7 mg/dL (0.7-1.3) 07/04/17 06:15 Creat Clearance w eGFR > 60 (>60) 07/04/17 06:15 Calcium 9.6 mg/dL (8.5-10.1) 07/04/17 06:15 Total Bilirubin 0.6 mg/dL (0.2-1.0) D 07/04/17 06:15 AST 28 U/L (15-37) D 07/04/17 06:15 ALT 17 U/L (12-78) 07/04/17 06:15 Alkaline Phosphatase 229 U/L (45-117) H 07/04/17 06:15 Total Protein 8.2 g/dl (6.4-8.2) 07/04/17 06:15 Albumin 2.6 g/dl (3.4-5.0) L 07/04/17 06:15 Medical Decision Making 45-year-old male history of asthma, profound mental retardation, cerebral palsy , functional quadriplegia, recurrent epistaxis, seizure disorder, history of Katherine fundoplication (stomach wrapped to prevent reflux), s/p PEG, recurrent pneumonia, respiratory failure, oxygen dependent, sent from [facility] for upper respiratory congestion. Previously in ICU and now on floor. There was concern for possible aspiration PNA. CXR w/ progressive R infiltrate, effusion and congestion. Extubated and not on mechanical ventilation with improving mental status but more restless today. Patient on IV Abx, Zosyn. ID following. Can continue seizure medications, Lamictal, Topamax, Valproate. Ativan PRN can also be used at low dose for agitation or if seizure occurs but no motor abnormal activity noted on exam or witnessed. Respiratory status improved, on 2L O2 now.
[2017-07-05] MEDS: MUPIROCIN 2% TOPICAL OINTMENT 22 GM TUBE TP SCH ×2 (15:07→21:48)
--- NOTE | 2017-07-05 16:59 | CONSULT ---
Consult - text type - Consultation Consultation Note: CC: epistaxis 45-year-old male history of asthma, profound mental retardation, cerebral palsy , functional quadriplegia, recurrent epistaxis, seizure disorder, history of Katherine fundoplication (stomach wrapped to prevent reflux), s/p PEG, recurrent pneumonia, respiratory failure, oxygen dependent, sent from [facility] for upper respiratory congestion. CXR w/ progressive R infiltrate, effusion and congestion. Nursing reports patient with chronic epistaxis with bleeding overnight which stopped this morning before consutl. Nursing reports no bleeding during the day today. Active Medications Albuterol/Ipratropium (Duoneb -) 1 amp NEB Q4HWA [facility] Last Admin: 07/05/17 06:45 Dose: 1 amp Artificial Tears (Artificial Tears) 1 drop OU BID PRN PRN Reason: DRY EYES Last Admin: 07/04/17 22:59 Dose: 1 drop Gabapentin (Neurontin -) 200 mg GT TID [facility] Last Admin: 07/05/17 06:47 Dose: 200 mg Glycopyrrolate (Robinul -) 1 mg GT TID [facility] Last Admin: 07/05/17 06:47 Dose: 1 mg Guaifenesin (Robitussin -) 10 ml GT Q6H PRN PRN Reason: COUGH Last Admin: 07/05/17 11:37 Dose: 10 ml Lamotrigine (Lamictal -) 200 mg GT BID [facility] Last Admin: 07/05/17 10:23 Dose: 200 mg Levothyroxine Sodium (Synthroid -) 50 mcg GT DAILY@0700 [facility] Last Admin: 07/05/17 06:47 Dose: 50 mcg Loratadine (Claritin -) 10 mg GT DAILY [facility] Last Admin: 07/05/17 10:22 Dose: 10 mg Mupirocin (Bactroban 2% Ointment -) 1 applic TP TID [facility] Scopolamine HBr (Transderm-Scop -) 1 patch TD Q72H [facility] Last Admin: 07/04/17 10:28 Dose: 1 patch Senna (Senna Oral Solution -) 17.6 mg PEG HS [facility] Last Admin: 07/04/17 23:04 Dose: Not Given Topiramate (Topamax -) 25 mg NR BID [facility] Last Admin: 07/05/17 10:22 Dose: 25 mg Valproate Sodium (Depakene -) 375 mg GT BID [facility] Last Admin: 07/05/17 10:22 Dose: 375 mg *Physical Exam Last Vital Signs Temp Pulse Resp BP Pulse Ox 97.8 F 76 18 131/66 93 L 07/05/17 10:00 07/05/17 10:00 07/05/17 10:00 07/05/17 10:00 07/05/17 09:00 General Appearance: awake alert NAD, not following commands, ears wnl Nose: nasal cannula in place, old blood clots in place. nasal cannula in place. no mucosal bleeding anteriorly, mucosa is slightly atrophic bilaterally. Oc/OP: dried blood on teeth and tongue, no blood in oropharynx neck: supple CBCD WBC 6.9 K/mm3 (4.0-10.0) 07/04/17 06:15 RBC 2.67 M/mm3 (4.00-5.60) L 07/04/17 06:15 Hgb 9.4 GM/dL (11.7-16.9) L 07/04/17 06:15 Hct 29.2 % (35.4-49) L 07/04/17 06:15 MCV 109.3 fl (80-96) H 07/04/17 06:15 MCHC 32.2 g/dl (32.0-35.9) 07/04/17 06:15 RDW 16.3 % (11.9-15.9) H 07/04/17 06:15 Plt Count 526 K/MM3 (134-434) H 07/04/17 06:15 MPV 6.7 fl (7.5-11.1) L 07/04/17 06:15 CMP Sodium 139 mmol/L (136-145) 07/04/17 06:15 Potassium 4.7 mmol/L (3.5-5.1) 07/04/17 06:15 Chloride 100 mmol/L (98-107) 07/04/17 06:15 Carbon Dioxide 33 mmol/L (21-32) H 07/04/17 06:15 Anion Gap 6 (8-16) L 07/04/17 06:15 BUN 16 mg/dL (7-18) 07/04/17 06:15 Creatinine 0.7 mg/dL (0.7-1.3) 08/25/17 06:15 Creat Clearance w eGFR > 60 (>60) 07/04/17 06:15 Calcium 9.6 mg/dL (8.5-10.1) 07/04/17 06:15 Total Bilirubin 0.6 mg/dL (0.2-1.0) D 07/04/17 06:15 AST 28 U/L (15-37) D 07/04/17 06:15 ALT 17 U/L (12-78) 07/04/17 06:15 Alkaline Phosphatase 229 U/L (45-117) H 07/04/17 06:15 Total Protein 8.2 g/dl (6.4-8.2) 07/04/17 06:15 Albumin 2.6 g/dl (3.4-5.0) L 07/04/17 06:15 A/P: recurrent epistaxis 45-year-old male history of asthma, profound mental retardation, cerebral palsy , functional quadriplegia, seizure disorder, history of Katherine fundoplication ( stomach wrapped to prevent reflux), s/p PEG, recurrent pneumonia, respiratory failure, oxygen dependent, sent from [facility] for upper respiratory congestion with recurrent epistaxis. Presently no active bleeding and no sites of bleeding identified bilaterally. Previously in ICU and now on the floor and has been extubated and is on oxygen via nasal cannula on. The prongs of the nasal cannula are near but not abutting the nasal septal mucosa which is slightly satrohpic (dry). Recommend trying to keep this position of the prongs-so that they do not abriade the mucosa. Continue bactroban ointment to nares for 5 days. I also asked nursing to inquire if Hemaderm (TM) which is Erik , a topical hemostatic agent, is available which can be applied to the mucosa if bleeding recurs. Nursing is looking into whether or not the hospital carries this or can obtain it.
[2017-07-05] MEDS: SENNOSIDES 8.8 MG/5 ML BULK BOTTLE PEG SCH (21:52)
[2017-07-06] MEDS: MUPIROCIN 2% TOPICAL OINTMENT 22 GM TUBE TP SCH ×3 (06:28→22:05)
[2017-07-06] MEDS: LEVOTHYROXINE NA 50 MCG TABLET (FP) GT SCH (06:29)
[2017-07-06] MEDS: GLYCOPYRROLATE 1 MG TABLET GT SCH ×3 (06:29→22:07)
[2017-07-06] MEDS: GABAPENTIN 100 MG CAPSULE (FP) GT SCH ×3 (06:29→22:07)
[2017-07-06] MEDS: ALBUTEROL SO4 2.5/IPRATROPIUM 0.5 INH SOL 3 ML VIAL.NEB. NEB SCH (06:35)
[2017-07-06 07:13] LABS: BASOPHIL 0.5 % (0-2.0); EOSINOPHIL 4.2 % (0-4.5); MCH 35.8 pg (25.7-33.7); MCHC 33.3 g/dl (32.0-35.9); MEAN CELL VOLUME 107.5 fl (80-96); MEAN PLT VOLUME 6.8 fl (7.5-11.1); NEUTROPHILS 43.2 % (42.8-82.8); PLATELET COUNT 634 K/MM3 (134-434); RDW 15.9 % (11.9-15.9); WHITE BLOOD COUNT 7.3 K/mm3 (4.0-10.0)
[2017-07-06 07:25] LABS: ALBUMIN 2.7 g/dl (3.4-5.0); ANION GAP 5 (8-16); BILIRUBIN,TOTAL 0.3 mg/dL (0.2-1.0); CO2 30 mmol/L (21-32); CREATININE 0.8 mg/dL (0.7-1.3); GLUCOSE,RANDOM 87 mg/dL (74-106); SGOT/AST 20 U/L (15-37); SGPT/ALT 16 U/L (12-78); TOT PROT 8.7 g/dl (6.4-8.2)
[2017-07-06 07:26] LABS: ALK PHOS 229 U/L (45-117)
[2017-07-06] MEDS ORDERED: PT OWN MED DRAWER 7, Y5N ONE ×4 (09:05→20:30)
[2017-07-06] MEDS: LORATADINE 10 MG TABLET GT SCH (09:07)
[2017-07-06] MEDS: TOPIRAMATE 25 MG TABLET (FP) NR SCH ×2 (09:07→22:08)
[2017-07-06] MEDS: VALPROATE SODIUM 250 MG/5 ML UNIT DOSE CUP GT SCH ×2 (09:07→22:06)
[2017-07-06] MEDS: lamoTRIgine 100 MG TABLET (FP) GT SCH ×2 (09:08→22:06)
--- NOTE | 2017-07-06 10:56 | PN ---
Progress Note (short form) - Note Progress Note: PULMONARY MYOCLONIC JERKS EPISTAXSIS WITH DRIED BLOOD AROUND LIPS VSS/AFEBRILE PALE SCATTERED RHONCHI/WHEEZE S1S2 BS+ MILD EDEMA LOWER EXT LABS/MEDS/NOTES/MICRO IMAGING REVIEWED Acute Hypoxic on Chronic Respiratory Failure Pneumonia Mental Retardation Cerebral Palsy Seizure Disorder Asthma - consider aerosolized face mask - aspiration precautions - inhaled bronchodilators - taper Fio2 to keep SpO2 >90% - antiepileptics, seizure precautions - DVT prophylaxis - May need ENT Zeynep ONEAL MD
[2017-07-06] MEDS: guaiFENesin 200 MG/10 ML 10 ML UNIT-DOSE CUPS GT PRN ×2 (12:29→22:10)
--- NOTE | 2017-07-06 13:13 | PN ---
Progress Note, Physician History of Present Illness: no bleeding ent evaluated currently calm - Current Medication List Current Medications: Active Medications Albuterol/Ipratropium (Duoneb -) 1 amp NEB Q8H PRN Artificial Tears (Artificial Tears) 1 drop OU BID PRN PRN Reason: DRY EYES Last Admin: 07/04/17 22:59 Dose: 1 drop Gabapentin (Neurontin -) 200 mg GT TID [facility] Last Admin: 07/06/17 06:29 Dose: 200 mg Glycopyrrolate (Robinul -) 1 mg GT TID [facility] Last Admin: 07/06/17 06:29 Dose: 1 mg Guaifenesin (Robitussin -) 10 ml GT Q6H PRN PRN Reason: COUGH Last Admin: 07/06/17 12:29 Dose: 10 ml Lamotrigine (Lamictal -) 200 mg GT BID [facility] Last Admin: 07/06/17 09:08 Dose: 200 mg Levothyroxine Sodium (Synthroid -) 50 mcg GT DAILY@0700 [facility] Last Admin: 07/06/17 06:29 Dose: 50 mcg Loratadine (Claritin -) 10 mg GT DAILY [facility] Last Admin: 07/06/17 09:07 Dose: 10 mg Mupirocin (Bactroban 2% Ointment -) 1 applic TP TID [facility] Last Admin: 07/06/17 06:28 Dose: 1 applic Scopolamine HBr (Transderm-Scop -) 1 patch TD Q72H [facility] Last Admin: 07/04/17 10:28 Dose: 1 patch Senna (Senna Oral Solution -) 17.6 mg PEG HS [facility] Last Admin: 07/05/17 21:52 Dose: 17.6 mg Sodium Chloride ([place] Nasal [place] -) 2 spray NS TID PRN PRN Reason: NASAL CONGESTION Topiramate (Topamax -) 25 mg NR BID [facility] Last Admin: 07/06/17 09:07 Dose: 25 mg Valproate Sodium (Depakene -) 375 mg GT BID [facility] Last Admin: 07/06/17 09:07 Dose: 375 mg - Objective Vital Signs: Vital Signs Temperature 97.7 F 07/06/17 10:00 Pulse Rate 83 07/06/17 10:00 Respiratory Rate 20 07/06/17 10:00 Blood Pressure 113/59 07/06/17 10:00 O2 Sat by Pulse Oximetry (%) 94 L 07/06/17 09:00 Constitutional: Yes: No Distress, Calm Respiratory: Yes: Regular, Other (on mask) Gastrointestinal: Yes: Normal Bowel Sounds, Soft, Other (peg in place) Musculoskeletal: Yes: Other Extremities: Yes: Other Neurological: Yes: Alert, Other Psychiatric: Yes: Other Labs: CBC, BMP 07/06/17 06:15 07/06/17 06:15 Assessment/Plan Problem List - Problems (1) Aspiration pneumonia Code(s): J69.0 - PNEUMONITIS DUE TO INHALATION OF FOOD AND VOMIT (2) Hypercapnia Code(s): R06.89 - OTHER ABNORMALITIES OF BREATHING (3) Seizure Code(s): R56.9 - UNSPECIFIED CONVULSIONS (4) Asthma Code(s): J45.909 - UNSPECIFIED ASTHMA, UNCOMPLICATED Qualifiers: Asthma severity: mild intermittent Asthma complication type: uncomplicated Qualified Code(s): J45.20 - Mild intermittent asthma, uncomplicated (5) GERD (gastroesophageal reflux disease) Code(s): K21.9 - GASTRO-ESOPHAGEAL REFLUX DISEASE WITHOUT ESOPHAGITIS (6) Cerebral palsy, quadriplegic Code(s): G80.8 - OTHER CEREBRAL PALSY (7) Hypothyroidism Code(s): E03.9 - HYPOTHYROIDISM, UNSPECIFIED (8) Mental retardation Code(s): F79 - UNSPECIFIED INTELLECTUAL DISABILITIES pseudomonas pna mrsa pna plan continue to monitor aspiration precautions rest as per prul ent
--- NOTE | 2017-07-06 14:18 | PN ---
Physical Exam: SUBJECTIVE: Patient seen and examined at the bedside. Non verbal at baseline OBJECTIVE: Some dried blood seen on lips and oral cavity. Dried blood may be due to drying of the mucous membranes from oxygen and nasal cannula prongs, Will put patient on aerosolized face mask and monitor for improvement Seen by ENT Less coughing with Robitussin Vital Signs Period Temp Pulse Resp BP Sys/Celestin Pulse Ox Last 24 Hr 96.8 F-99.5 F 77-83 18-20 109-127/49-60 94-96 GENERAL: Awake, alert, non verbal at baseline, brief eye contact LUNGS: diminished lung sounds, increased rhonchi compared to yesterday. Lasix 40mg x 1 ordered ABDOMEN: +peg tube UPPER EXTREMITIES: No peripheral edema. LOWER EXTREMITIES: non pitting edema on bilateral feet NEUROLOGICAL: awake, alert Laboratory Results - last 24 hr 07/06/17 07/06/17 06:15 06:15 WBC 7.3 RBC 2.73 L Hgb 9.8 L Hct 29.4 L MCV 107.5 H MCH 35.8 H MCHC 33.3 RDW 15.9 Plt Count 634 H D MPV 6.8 L Neutrophils % 43.2 Lymphocytes % 38.1 D Monocytes % 14.0 H Eosinophils % 4.2 Basophils % 0.5 Sodium 135 L Potassium 4.9 Chloride 100 Carbon Dioxide 30 Anion Gap 5 L BUN 21 H D Creatinine 0.8 Creat Clearance w eGFR > 60 Random Glucose 87 Calcium 10.0 Total Bilirubin 0.3 D AST 20 D ALT 16 Alkaline Phosphatase 229 H Total Protein 8.7 H Albumin 2.7 L Active Medications Generic Name Dose Route Start Last Admin Trade Name Freq PRN Reason Stop Dose Admin Albuterol/Ipratropium 1 amp 07/06/17 11:49 Duoneb - NEB Q8H PRN Artificial Tears 1 drop 06/30/17 19:10 07/04/17 22:59 Artificial Tears OU 1 drop BID PRN Administration DRY EYES Gabapentin 200 mg 06/30/17 22:00 07/06/17 06:29 Neurontin - GT 200 mg TID GILL Administration Glycopyrrolate 1 mg 06/30/17 22:00 07/06/17 06:29 Robinul - GT 1 mg TID GILL Administration Guaifenesin 10 ml 07/05/17 10:24 08/27/17 12:29 Robitussin - GT 10 ml Q6H PRN Administration COUGH Lamotrigine 200 mg 06/30/17 22:00 07/06/17 09:08 Lamictal - GT 200 mg BID GILL Administration Levothyroxine Sodium 50 mcg 07/01/17 07:00 07/06/17 06:29 Synthroid - GT 50 mcg DAILY@0700 GILL Administration Loratadine 10 mg 07/01/17 10:00 07/06/17 09:07 Claritin - GT 10 mg DAILY GILL Administration Mupirocin 1 applic 07/05/17 14:00 07/06/17 06:28 Bactroban 2% Ointment - TP 1 applic TID GILL Administration Scopolamine HBr 1 patch 07/01/17 11:15 07/04/17 10:28 Transderm-Scop - TD 1 patch Q72H GILL Administration Senna 17.6 mg 06/30/17 22:00 07/05/17 21:52 Senna Oral Solution - PEG 17.6 mg HS GILL Administration Sodium Chloride 2 spray 07/06/17 12:13 [place] Nasal [place] - NS TID PRN NASAL CONGESTION Topiramate 25 mg 06/30/17 22:00 07/06/17 09:07 Topamax - NR 25 mg BID GILL Administration Valproate Sodium 375 mg 06/30/17 22:00 07/06/17 09:07 Depakene - GT 375 mg BID GILL Administration ASSESSMENT/PLAN: Patient is a 46 year old male with a significant past medical history of asthma , profound mental retardation, cerebral palsy, functional quadriplegia, recurrent epistaxis, seizure disorder, history of Katherine fundoplication ( stomach wrapped to prevent reflux), s/p PEG, recurrent pneumonia, respiratory failure, oxygen dependent, sent from [facility] [place] on for upper respiratory congestion and difficulty breathing. ID: Septic Shock likely 2/2 to Aspiration pnemonia, vs HCAP/upper respiratory infection with respiratory Failure - resolved A/P: Antibiotics d/cd by ID on 07/05 Pseudomonas pnemonia, UTI treated with Zosyn and Vanco Monitor off antibiotics On scheduled duonebs and nasal cannula between 2 and 3 liters Some dried blood seen on lips and oral cavity likely from Pulmonary following ENT: Recurrent epistaxis - acute on chronic A/P: Dried blood may be due to drying of the mucous membranes from oxygen and nasal cannula prongs, Will put patient on aerosolized face mask and monitor for improvement Seen by ENT, on Bactroban 2% ointment TID, added ocean spray Can follow ENT as an outpatient Neurology: Seizure disorder - chronic A/P: No seizure activity since admission Continue home seizure medications Followed by neurologist Endocrine: Hypothyroidism - chronic A/P: On Synthroid TSH within normal limits Cerebral Palsy/Qudriplegic - chronic A/P: Turn and position Dependent on all ADLs Skin intact Hematology: Thrombocytosis - monitor with CBC in a.m. Anemia - stable A/P; low h/h, low stable, monitor F.E.N. Fluids: tolerating tube feeds, continue Electrolytes: monitor DVT Proph: DVT: SCDs GI: Protonix ivpb Disposition: Full Code. Visit type - Emergency Visit Emergency Visit: Yes ED Registration Date: 06/22/17 Care time: The patient presented to the Emergency Department on the above date and was hospitalized for further evaluation of their emergent condition. - New Patient This patient is new to me today: No - Critical Care Critical Care patient: No - Discharge Referral Referred to [facility] No
[2017-07-06] MEDS: ALBUTEROL SO4 2.5/IPRATROPIUM 0.5 INH SOL 3 ML VIAL.NEB. NEB PRN ×2 (14:28→22:25)
--- NOTE | 2017-07-06 16:11 | PN ---
Progress Note (short form) - Note Progress Note: GASTROENTERROLOGY (FOR YAKELIN) CALLED FOR CLOGGED G TUBE RECENT DECLOGGED BY DR HAMLIN ABDOMEN: SOFT NONDISTENDED BS+ LUQ G TUBE IN FAIR CONDITION NOT ABLE TO FLUSH. 18FR YELOOW DECLOGGER USED. DISTAL PART OF TUBE CLEAR BUT RESISTANCE FELT IN THE PROXIMAL PART AND WITH TWISTING MOTIONS AND SLOWLY MOVING THE DELOGGER IN AND OUT THERE WAS EVENTUAL CLEARANCE OF THE OBSTRUCTION. G TUBE WAS FLUSHED EASILY WITH 50 CC OF WATER PLAN: CAN USE GTUBE BUT NEED TO CRUSH MEDS BETTER AND USE LESS VOLUME OF MEDS AT ONE TIME WITH AT LEAST TWO FLUSHES OF 50 CC OF WATER EACH MED ADMINISTRATION. NAINA HERCULES MD
[2017-07-06] MEDS: SENNOSIDES 8.8 MG/5 ML BULK BOTTLE PEG SCH (22:08)
[2017-07-06] MEDS: SODIUM CHLORIDE NASAL SPRAY 44 ML BOTTLE NS PRN (22:09)
[2017-07-07] MEDS: GABAPENTIN 100 MG CAPSULE (FP) GT SCH ×3 (06:10→22:24)
[2017-07-07] MEDS: MUPIROCIN 2% TOPICAL OINTMENT 22 GM TUBE TP SCH ×3 (06:10→22:24)
[2017-07-07] MEDS: LEVOTHYROXINE NA 50 MCG TABLET (FP) GT SCH (06:11)
[2017-07-07] MEDS: GLYCOPYRROLATE 1 MG TABLET GT SCH ×3 (06:11→23:25)
[2017-07-07] MEDS: ALBUTEROL SO4 2.5/IPRATROPIUM 0.5 INH SOL 3 ML VIAL.NEB. NEB PRN ×3 (06:38→23:14)
[2017-07-07 08:26] LABS: BASOPHIL 0.8 % (0-2.0); MCH 36.1 pg (25.7-33.7); MCHC 33.5 g/dl (32.0-35.9); MEAN CELL VOLUME 107.7 fl (80-96); MEAN PLT VOLUME 6.6 fl (7.5-11.1); NEUTROPHILS 34.8 % (42.8-82.8); PLATELET COUNT 520 K/MM3 (134-434); RDW 15.4 % (11.9-15.9); WHITE BLOOD COUNT 6.2 K/mm3 (4.0-10.0)
[2017-07-07 08:50] LABS: ALBUMIN 2.7 g/dl (3.4-5.0); ANION GAP 9 (8-16); CALCIUM 9.7 mg/dL (8.5-10.1); CO2 31 mmol/L (21-32); GLUCOSE,RANDOM 99 mg/dL (74-106); SGOT/AST 27 U/L (15-37); SGPT/ALT 16 U/L (12-78)
[2017-07-07 08:53] LABS: ALK PHOS 197 U/L (45-117); BILIRUBIN,TOTAL 0.3 mg/dL (0.2-1.0); CREATININE 0.7 mg/dL (0.7-1.3); TOT PROT 8.4 g/dl (6.4-8.2)
--- NOTE | 2017-07-07 09:42 | DS ---
Physical Exam: SUBJECTIVE: Patient seen and examined at the bedside. In no acute respiratory distress. Non verbal at baseline Continue nasal cannula at [place], but monitor for epistaxis Recommend nebulized vent mask, bactroban and ocean spray ENT consult as an outpatient if needed OBJECTIVE: For discharge today back to [place] No epistaxis overnight, no seizure activity Tolerating nasal cannula and face mask for increased humidification Recommend ENT follow up as an outpatient if any further bleeding episodes ENT recommended Hemaderm (TM) which is Erik , a topical hemostatic agent, is available which can be applied to the mucosa if bleeding recurs. Bactroban, nasal spray and humidified oxygen recommended Finished full course of antibiotics for pneumonia - no further antibiotics on discharge Maintain aspiration precautions - HOB elevated during feeds, stop tube feeds for cares Signout of patient given to Donna Anthony NP [phone] who accepts patient back to [place]. Vital Signs Period Temp Pulse Resp BP Sys/Celestin Pulse Ox Last 24 Hr 97.7 F-98.6 F 68-83 20-22 113-146/45-73 99 PHYSICAL EXAM GENERAL: non verbal at baseline LUNGS: diminished lung sounds, scattered rhonchi, continues to improve ABDOMEN: +peg tube UPPER EXTREMITIES: No peripheral edema. LOWER EXTREMITIES: non pitting edema on bilateral feet NEUROLOGICAL: at baseline LABS Laboratory Results - last 24 hr 07/07/17 07/07/17 07:30 07:30 WBC 6.2 RBC 2.51 L Hgb 9.1 L Hct 27.0 L MCV 107.7 H MCH 36.1 H MCHC 33.5 RDW 15.4 Plt Count 520 H MPV 6.6 L Neutrophils % 34.8 L Lymphocytes % 47.7 H D Monocytes % 12.7 H Eosinophils % 4.0 Basophils % 0.8 Sodium 136 Potassium 4.5 Chloride 96 L Carbon Dioxide 31 Anion Gap 9 BUN 21 H Creatinine 0.7 Creat Clearance w eGFR > 60 Random Glucose 99 Calcium 9.7 Total Bilirubin 0.3 AST 27 D ALT 16 Alkaline Phosphatase 197 H Total Protein 8.4 H Albumin 2.7 L HOSPITAL COURSE: Date of Admission:06/22/17 Date of Discharge: 07/07/17 ASSESSMENT/PLAN: Patient is a 46 year old male with a significant past medical history of asthma , profound mental retardation, cerebral palsy, functional quadriplegia, recurrent epistaxis, seizure disorder, history of Katherine fundoplication ( stomach wrapped to prevent reflux), s/p PEG, recurrent pneumonia, respiratory failure, oxygen dependent, sent from [facility] on for upper respiratory congestion and difficulty breathing. He was intubated and sent to the ICU on admission. Now has been stable on medical surgical floor. ID/Pulmonary: Septic Shock likely 2/2 to Aspiration pnemonia, vs HCAP/upper respiratory infection with respiratory Failure - resolved A/P: Antibiotics d/cd by ID on 07/05 and patient has been stable off antibiotics , no antibiotics on discharge Vitals are stable, hypothermia resolved, labs stable On scheduled duonebs and nasal cannula between 2 and 3 liters, face mask to provide added humidification Monitor oxygen saturations at [place] on 2 - 3 liters of nasal cannula, provide humidified oxygen ENT: Recurrent epistaxis - acute on chronic - now resolved A/P: Dried blood may be due to drying of the mucous membranes from oxygen and nasal cannula prongs ENT recommended Hemaderm (TM) which is Erik , a topical hemostatic agent, is available which can be applied to the mucosa if bleeding recurs. Patient on aerosolized face mask that provides increased humidification to mucous membranes, continue Seen by ENT, on Bactroban 2% ointment TID, added ocean spray Can follow ENT as an outpatient Neurology: Seizure disorder - chronic A/P: No seizure activity since admission Continue home seizure medications Followed by neurologist during hospitalization, cleared by neuro for discharge Endocrine: Hypothyroidism - chronic A/P: On Synthroid TSH within normal limits Cerebral Palsy/Qudriplegic - chronic A/P: Turn and position Dependent on all ADLs Skin intact Hematology: Anemia/thrombocytosis - chronic A/P: monitor with CBC Anemia - stable F.E.N. Fluids: tolerating tube feeds, continue Electrolytes: monitor Minutes to complete discharge: 60 Discharge Summary Reason For Visit: PNEUMONIA, HYPERCAPNIA Current Active Problems Acute respiratory failure (Acute) Allergic reaction (Acute) Aspiration pneumonia (Acute) DVT prophylaxis (Acute) Elevated alkaline phosphatase level (Acute) Epistaxis, recurrent (Acute) Functional quadriplegia (Acute) Hypercapnia (Acute) Pneumonia (Acute) Seizure (Acute) Condition: Improved - Instructions Diet, Activity, Other Instructions: I also asked nursing to inquire if Hemaderm (TM) which is Erik , a topical hemostatic agent, is available which can be applied to the mucosa if bleeding recurs. Nursing is looking into whether or not the hospital carries this or can obtain it. Continue bactroban ointment to nares for 5 days. Referrals: Nohemy Kamara MD, MD [Primary Care Provider] - Disposition: [facility] FACILITY - Home Medications Comprehensive Discharge Medication List: Ambulatory Orders Albuterol 0.083% Nebulizer Yolanda [Ventolin 0.083% Nebulizer Soln -] 1 amp NEB Q8H PRN 06/22/17 Calcium Carbonate/Vitamin D3 [Oyster Shell 500-Vit D3 200 Tb] 1 each GT BID Clonazepam 0.5 mg GT TID 06/22/17 Diazepam [Diastat Acudial] 1 each RC PRN PRN 06/22/17 Divalproex Sodium [Depakote] 375 mg GT BID 06/22/17 Ferrous Sulfate *Liquid* [Feosol [ALCOHOL FREE]] 5 ml GT BID 06/22/17 Gabapentin 200 mg PO TID 06/22/17 Glycopyrrolate 1 mg GT TID 06/22/17 Lamotrigine [Lamictal Xr] 200 mg GT BID 06/22/17 Levothyroxine [Synthroid -] 50 mcg GT DAILY 06/22/17 Loratadine 10 mg GT DAILY 06/22/17 Multivit-Min/FA/Lycopen/Lutein [Vitrum 50+ Senior Tablet] 1 each GT DAILY Nutritional Supplement/Fiber [Promote with Fiber Liquid] 830 ml GT DAILY Polyethylene Glycol 3350 [Glycolax] 17 gm GT DAILY 06/22/17 Protein Supplement [Promod] 30 ml GT DAILY 06/22/17 Sennosides [Senna] 2 tab GT HS 06/22/17 Sodium Chloride Nasal Gel [[place] Nasal Gel -] 1 applic TP DAILY 06/22/17 Sodium Chloride Tablet - 2.5 tab PO HS 06/22/17 Sodium Chloride Tablet - 3.5 tab GT AM 06/22/17 Topiramate 25 gm GT BID 06/22/17 This patient is new to me today: No Emergency Visit: Yes ED Registration Date: 06/22/17 Care time: The patient presented to the Emergency Department on the above date and was hospitalized for further evaluation of their emergent condition. Critical Care patient: No - Discharge Referral Referred to [facility] No
--- NOTE | 2017-07-07 09:58 | PN ---
Progress Note (short form) - Note Progress Note: Neurology History of Present Illness 45-year-old male history of asthma, profound mental retardation, cerebral palsy , functional quadriplegia, recurrent epistaxis, seizure disorder, history of Katherine fundoplication (stomach wrapped to prevent reflux), s/p PEG, recurrent pneumonia, respiratory failure, oxygen dependent, sent from [facility] for upper respiratory congestion. CXR w/ progressive R infiltrate, effusion and congestion. No respiratory distress and calm today. Saturations are better. Has been stable on the floor and not needed to go back to ICU care. No seizures noted. Active Medications Albuterol/Ipratropium (Duoneb -) 1 amp NEB Q8H PRN Last Admin: 07/07/17 06:38 Dose: 1 amp Artificial Tears (Artificial Tears) 1 drop OU BID PRN PRN Reason: DRY EYES Last Admin: 07/04/17 22:59 Dose: 1 drop Gabapentin (Neurontin -) 200 mg GT TID [facility] Last Admin: 07/07/17 06:10 Dose: 200 mg Glycopyrrolate (Robinul -) 1 mg GT TID [facility] Last Admin: 07/07/17 06:11 Dose: 1 mg Guaifenesin (Robitussin -) 10 ml GT Q6H PRN PRN Reason: COUGH Last Admin: 07/06/17 22:10 Dose: 10 ml Lamotrigine (Lamictal -) 200 mg GT BID [facility] Last Admin: 07/06/17 22:06 Dose: 200 mg Levothyroxine Sodium (Synthroid -) 50 mcg GT DAILY@0700 [facility] Last Admin: 07/07/17 06:11 Dose: 50 mcg Loratadine (Claritin -) 10 mg GT DAILY [facility] Last Admin: 07/06/17 09:07 Dose: 10 mg Mupirocin (Bactroban 2% Ointment -) 1 applic TP TID [facility] Last Admin: 07/07/17 06:10 Dose: 1 applic Scopolamine HBr (Transderm-Scop -) 1 patch TD Q72H [facility] Last Admin: 07/04/17 10:28 Dose: 1 patch Senna (Senna Oral Solution -) 17.6 mg PEG HS [facility] Last Admin: 07/06/17 22:08 Dose: 17.6 mg Sodium Chloride ([place] Nasal [place] -) 2 spray NS TID PRN PRN Reason: NASAL CONGESTION Last Admin: 07/06/17 22:09 Dose: 2 sprays Topiramate (Topamax -) 25 mg NR BID [facility] Last Admin: 07/06/17 22:08 Dose: 25 mg Valproate Sodium (Depakene -) 375 mg GT BID [facility] Last Admin: 07/06/17 22:06 Dose: 375 mg *Physical Exam Vital Signs Temperature 98.6 F 07/06/17 22:00 Pulse Rate 78 07/06/17 22:00 Respiratory Rate 22 07/06/17 22:00 Blood Pressure 125/64 07/06/17 22:00 O2 Sat by Pulse Oximetry (%) 99 07/06/17 21:00 General Appearance: Yes: Appropriately Dressed, not following commands, intubated on mechanical ventilation HEENT: positive: Other (mostly coagulated blood to tongue/teeth, possibly small tongue lac) Respiratory/Chest: positive: Rhonchi, Cardiovascular: positive: S1, S2 Gastrointestinal/Abdominal: positive: Soft. negative: Mass Integumentary: positive: Dry, Warm Neuro: Pupil responsive, not following commands, responds to pain and tactile stimulation, no apparent CN deficits, no abnormal motor activity, not participating in confrontation testing CBCD WBC 6.2 K/mm3 (4.0-10.0) 07/07/17 07:30 RBC 2.51 M/mm3 (4.00-5.60) L 07/07/17 07:30 Hgb 9.1 GM/dL (11.7-16.9) L 07/07/17 07:30 Hct 27.0 % (35.4-49) L 07/07/17 07:30 MCV 107.7 fl (80-96) H 07/07/17 07:30 MCHC 33.5 g/dl (32.0-35.9) 07/07/17 07:30 RDW 15.4 % (11.9-15.9) 07/07/17 07:30 Plt Count 520 K/MM3 (134-434) H 07/07/17 07:30 MPV 6.6 fl (7.5-11.1) L 07/07/17 07:30 CMP Sodium 136 mmol/L (136-145) 07/07/17 07:30 Potassium 4.5 mmol/L (3.5-5.1) 07/07/17 07:30 Chloride 96 mmol/L (98-107) L 07/07/17 07:30 Carbon Dioxide 31 mmol/L (21-32) 07/07/17 07:30 Anion Gap 9 (8-16) 07/07/17 07:30 BUN 21 mg/dL (7-18) H 07/07/17 07:30 Creatinine 0.7 mg/dL (0.7-1.3) 07/07/17 07:30 Creat Clearance w eGFR > 60 (>60) 07/07/17 07:30 Calcium 9.7 mg/dL (8.5-10.1) 07/07/17 07:30 Total Bilirubin 0.3 mg/dL (0.2-1.0) 07/07/17 07:30 AST 27 U/L (15-37) D 07/07/17 07:30 ALT 16 U/L (12-78) 07/07/17 07:30 Alkaline Phosphatase 197 U/L (45-117) H 07/07/17 07:30 Total Protein 8.4 g/dl (6.4-8.2) H 07/07/17 07:30 Albumin 2.7 g/dl (3.4-5.0) L 07/07/17 07:30 Medical Decision Making 45-year-old male history of asthma, profound mental retardation, cerebral palsy , functional quadriplegia, recurrent epistaxis, seizure disorder, history of Katherine fundoplication (stomach wrapped to prevent reflux), s/p PEG, recurrent pneumonia, respiratory failure, oxygen dependent, sent from [facility] for upper respiratory congestion. Previously in ICU and now on floor. There was concern for possible aspiration PNA. CXR w/ progressive R infiltrate, effusion and congestion. Extubated and not on mechanical ventilation with improving mental status but more restless today. Patient on IV Abx, Zosyn. ID following. Can continue seizure medications, Lamictal, Topamax, Valproate. Ativan PRN can also be used at low dose for agitation or if seizure occurs but no motor abnormal activity noted on exam or witnessed. Respiratory status improved, for discharge today
[2017-07-07 10:03] LABS: ANISOCYTOSIS 1+; MACROCYTOSIS 2+; POLYCHROMASIA 1+; TARGET CELLS FEW
[2017-07-07] MEDS ORDERED: PT OWN MED DRAWER 7, Y5N ONE ×3 (10:47→23:41)
[2017-07-07] MEDS: VALPROATE SODIUM 250 MG/5 ML UNIT DOSE CUP GT SCH (10:53)
[2017-07-07] MEDS: guaiFENesin 200 MG/10 ML 10 ML UNIT-DOSE CUPS GT PRN (10:54)
[2017-07-07] MEDS: LORATADINE 10 MG TABLET GT SCH (10:54)
[2017-07-07] MEDS: TOPIRAMATE 25 MG TABLET (FP) NR SCH ×2 (10:54→22:25)
[2017-07-07] MEDS: lamoTRIgine 100 MG TABLET (FP) GT SCH ×2 (10:55→22:25)
[2017-07-07] MEDS: SCOPOLAMINE HYDROBROMIDE 1 PATCH PATCH.TD72 TD SCH (10:55)
--- NOTE | 2017-07-07 12:58 | PN ---
Progress Note, Physician History of Present Illness: calm on moisturizing mass - Current Medication List Current Medications: Active Medications Albuterol/Ipratropium (Duoneb -) 1 amp NEB Q8H PRN Last Admin: 07/07/17 06:38 Dose: 1 amp Artificial Tears (Artificial Tears) 1 drop OU BID PRN PRN Reason: DRY EYES Last Admin: 07/04/17 22:59 Dose: 1 drop Gabapentin (Neurontin -) 200 mg GT TID [facility] Last Admin: 07/07/17 06:10 Dose: 200 mg Glycopyrrolate (Robinul -) 1 mg GT TID [facility] Last Admin: 07/07/17 06:11 Dose: 1 mg Guaifenesin (Robitussin -) 10 ml GT Q6H PRN PRN Reason: COUGH Last Admin: 07/07/17 10:54 Dose: 10 ml Lamotrigine (Lamictal -) 200 mg GT BID [facility] Last Admin: 07/07/17 10:55 Dose: 200 mg Levothyroxine Sodium (Synthroid -) 50 mcg GT DAILY@0700 [facility] Last Admin: 07/07/17 06:11 Dose: 50 mcg Loratadine (Claritin -) 10 mg GT DAILY [facility] Last Admin: 07/07/17 10:54 Dose: 10 mg Mupirocin (Bactroban 2% Ointment -) 1 applic TP TID [facility] Last Admin: 07/07/17 06:10 Dose: 1 applic Scopolamine HBr (Transderm-Scop -) 1 patch TD Q72H [facility] Last Admin: 07/07/17 10:55 Dose: 1 patch Senna (Senna Oral Solution -) 17.6 mg PEG HS [facility] Last Admin: 07/06/17 22:08 Dose: 17.6 mg Sodium Chloride ([place] Nasal [place] -) 2 spray NS TID PRN PRN Reason: NASAL CONGESTION Last Admin: 07/06/17 22:09 Dose: 2 sprays Topiramate (Topamax -) 25 mg NR BID [facility] Last Admin: 07/07/17 10:54 Dose: 25 mg Valproate Sodium (Depakene -) 375 mg GT BID [facility] Last Admin: 07/07/17 10:53 Dose: 375 mg - Objective Vital Signs: Vital Signs Temperature 98.2 F 07/07/17 10:37 Pulse Rate 67 07/07/17 10:37 Respiratory Rate 19 07/07/17 10:37 Blood Pressure 117/62 07/07/17 10:37 O2 Sat by Pulse Oximetry (%) 97 07/07/17 10:38 Constitutional: Yes: No Distress, Calm Cardiovascular: Yes: Regular Rate and Rhythm Respiratory: Yes: Poor Air Entry, Other Gastrointestinal: Yes: Normal Bowel Sounds, Soft, Other (peg in place) Musculoskeletal: Yes: Other Extremities: Yes: Other Neurological: Yes: Alert, Other Labs: CBC, BMP 07/07/17 07:30 07/07/17 07:30 Assessment/Plan Problem List - Problems (1) Aspiration pneumonia Code(s): J69.0 - PNEUMONITIS DUE TO INHALATION OF FOOD AND VOMIT (2) Hypercapnia Code(s): R06.89 - OTHER ABNORMALITIES OF BREATHING (3) Seizure Code(s): R56.9 - UNSPECIFIED CONVULSIONS (4) Asthma Code(s): J45.909 - UNSPECIFIED ASTHMA, UNCOMPLICATED Qualifiers: Asthma severity: mild intermittent Asthma complication type: uncomplicated Qualified Code(s): J45.20 - Mild intermittent asthma, uncomplicated (5) GERD (gastroesophageal reflux disease) Code(s): K21.9 - GASTRO-ESOPHAGEAL REFLUX DISEASE WITHOUT ESOPHAGITIS (6) Cerebral palsy, quadriplegic Code(s): G80.8 - OTHER CEREBRAL PALSY (7) Hypothyroidism Code(s): E03.9 - HYPOTHYROIDISM, UNSPECIFIED (8) Mental retardation Code(s): F79 - UNSPECIFIED INTELLECTUAL DISABILITIES pseudomonas pna mrsa pna plan continue to monitor aspiration precautions rest as per prul ent patient off of all abx now
[2017-07-07] MEDS: SODIUM CHLORIDE NASAL SPRAY 44 ML BOTTLE NS PRN (13:48)
[2017-07-07 17:31] LABS: BASOPHIL 0.6 % (0-2.0); EOSINOPHIL 3.5 % (0-4.5); MCH 36.6 pg (25.7-33.7); MCHC 33.8 g/dl (32.0-35.9); MEAN CELL VOLUME 108.2 fl (80-96); MEAN PLT VOLUME 7.1 fl (7.5-11.1); NEUTROPHILS 34.4 % (42.8-82.8); PLATELET COUNT 532 K/MM3 (134-434); RDW 15.6 % (11.9-15.9); WHITE BLOOD COUNT 5.1 K/mm3 (4.0-10.0)
--- NOTE | 2017-07-07 18:42 | PN ---
Progress Note (short form) - Note Progress Note: ENT pt has had minor bleeding from left nostril rx nasal saline spray and Bactroban ointment now off nasal cannulae, on O2 via face mask was to be transferred to [place] today, however blood count low Hgb <9, so transfer back delayed because of this. PE NAD Eyes closed non-communicative nose external normal endoscopy: nasal septum intact with minor deviation inferior turbinates sl edema dry blood on right septum and on left inferior turbinate/inferior meatus middle turbinates unremarkable, middle meati no pus superior turbinates, superior meati, sphenoethmoid recesses not visualized teeth and lips dry, sl old blood, no active bleeding Impression: epistaxis, chronic, presently inactive dry blood left nostril, but no active bleeding low Hgb Recommend: continue present management do not recommend current packing or cauterization increased risk of precipitating bleeding because of patient's inability to cooperate with an intranasal procedure would most likely create new nasal bleeding when presently there is no bleeding medical management of low hemoglobin. Sunny Garcia MD FACS
[2017-07-07 19:48] LABS: PLATELET ESTIMATE INCREASED (NORMAL)
[2017-07-07 19:49] LABS: ANISOCYTOSIS OCCASIONAL; MACROCYTOSIS 2+; POLYCHROMASIA 1+
[2017-07-07] MEDS: SENNOSIDES 8.8 MG/5 ML BULK BOTTLE PEG SCH (23:26)
[2017-07-08] MEDS ORDERED: DIVALPROEX SODIUM 125 MG SPRINKLE CAPS (FP) PO ONE (00:30)
[2017-07-08] MEDS: GABAPENTIN 100 MG CAPSULE (FP) GT SCH (06:26)
[2017-07-08] MEDS: GLYCOPYRROLATE 1 MG TABLET GT SCH (06:28)
[2017-07-08] MEDS: MUPIROCIN 2% TOPICAL OINTMENT 22 GM TUBE TP SCH (06:28)
[2017-07-08] MEDS: LEVOTHYROXINE NA 50 MCG TABLET (FP) GT SCH (06:28)
[2017-07-08 07:41] LABS: BASOPHIL 0.8 % (0-2.0); EOSINOPHIL 2.9 % (0-4.5); MCH 35.1 pg (25.7-33.7); MCHC 32.2 g/dl (32.0-35.9); MEAN CELL VOLUME 108.8 fl (80-96); MEAN PLT VOLUME 6.9 fl (7.5-11.1); NEUTROPHILS 32.2 % (42.8-82.8); PLATELET COUNT 528 K/MM3 (134-434); RDW 15.8 % (11.9-15.9); WHITE BLOOD COUNT 5.7 K/mm3 (4.0-10.0)
[2017-07-08] MEDS ORDERED: VALPROATE SODIUM 250 MG/5 ML UNIT DOSE CUP GT SCH (10:00)
--- NOTE | 2017-07-08 10:28 | PN ---
Progress Note (short form) - Note Progress Note: Neurology History of Present Illness 45-year-old male history of asthma, profound mental retardation, cerebral palsy , functional quadriplegia, recurrent epistaxis, seizure disorder, history of Katherine fundoplication (stomach wrapped to prevent reflux), s/p PEG, recurrent pneumonia, respiratory failure, oxygen dependent, sent from [facility] for upper respiratory congestion. CXR w/ progressive R infiltrate, effusion and congestion. No respiratory distress and calm today. Saturations are better. Has been stable on the floor and not having neurologic complications. Active Medications Albuterol/Ipratropium (Duoneb -) 1 amp NEB Q8H PRN Last Admin: 07/07/17 23:14 Dose: 1 amp Artificial Tears (Artificial Tears) 1 drop OU BID PRN PRN Reason: DRY EYES Last Admin: 07/04/17 22:59 Dose: 1 drop Divalproex Sodium (Depakote Sprinkle Caps -) 375 mg GT ONCE ONE Stop: 07/09/17 10:01 Gabapentin (Neurontin -) 200 mg GT TID [facility] Last Admin: 07/08/17 06:26 Dose: 200 mg Glycopyrrolate (Robinul -) 1 mg GT TID [facility] Last Admin: 07/08/17 06:28 Dose: 1 mg Guaifenesin (Robitussin -) 10 ml GT Q6H PRN PRN Reason: COUGH Last Admin: 07/07/17 10:54 Dose: 10 ml Lamotrigine (Lamictal -) 200 mg GT BID [facility] Last Admin: 07/07/17 22:25 Dose: 200 mg Levothyroxine Sodium (Synthroid -) 50 mcg GT DAILY@0700 [facility] Last Admin: 07/08/17 06:28 Dose: 50 mcg Loratadine (Claritin -) 10 mg GT DAILY [facility] Last Admin: 07/07/17 10:54 Dose: 10 mg Mupirocin (Bactroban 2% Ointment -) 1 applic TP TID [facility] Last Admin: 07/08/17 06:28 Dose: 1 applic Scopolamine HBr (Transderm-Scop -) 1 patch TD Q72H [facility] Last Admin: 07/07/17 10:55 Dose: 1 patch Senna (Senna Oral Solution -) 17.6 mg PEG HS [facility] Last Admin: 07/07/17 23:26 Dose: 17.6 mg Sodium Chloride ([place] Nasal [place] -) 2 spray NS TID PRN PRN Reason: NASAL CONGESTION Last Admin: 07/07/17 13:48 Dose: 2 sprays Topiramate (Topamax -) 25 mg NR BID [facility] Last Admin: 07/07/17 22:25 Dose: 25 mg Valproate Sodium (Depakene -) 375 mg GT BID [facility] *Physical Exam Vital Signs Temperature 97.8 F 07/08/17 06:00 Pulse Rate 78 07/08/17 06:00 Respiratory Rate 20 07/08/17 06:00 Blood Pressure 145/88 07/08/17 06:00 O2 Sat by Pulse Oximetry (%) 96 07/07/17 21:00 General Appearance: Yes: Appropriately Dressed, not following commands, intubated on mechanical ventilation HEENT: positive: Other (mostly coagulated blood to tongue/teeth, possibly small tongue lac) Respiratory/Chest: positive: Rhonchi, Cardiovascular: positive: S1, S2 Gastrointestinal/Abdominal: positive: Soft. negative: Mass Integumentary: positive: Dry, Warm Neuro: Pupil responsive, not following commands, responds to pain and tactile stimulation, no apparent CN deficits, no abnormal motor activity, not participating in confrontation testing CBCD WBC 5.7 K/mm3 (4.0-10.0) 07/08/17 06:50 RBC 2.60 M/mm3 (4.00-5.60) L 07/08/17 06:50 Hgb 9.1 GM/dL (11.7-16.9) L 07/08/17 06:50 Hct 28.3 % (35.4-49) L 07/08/17 06:50 MCV 108.8 fl (80-96) H 07/08/17 06:50 MCHC 32.2 g/dl (32.0-35.9) 07/08/17 06:50 RDW 15.8 % (11.9-15.9) 07/08/17 06:50 Plt Count 528 K/MM3 (134-434) H 07/08/17 06:50 MPV 6.9 fl (7.5-11.1) L 07/08/17 06:50 CMP Sodium 136 mmol/L (136-145) 07/07/17 07:30 Potassium 4.5 mmol/L (3.5-5.1) 07/07/17 07:30 Chloride 96 mmol/L (98-107) L 07/07/17 07:30 Carbon Dioxide 31 mmol/L (21-32) 07/07/17 07:30 Anion Gap 9 (8-16) 07/07/17 07:30 BUN 21 mg/dL (7-18) H 07/07/17 07:30 Creatinine 0.7 mg/dL (0.7-1.3) 07/07/17 07:30 Creat Clearance w eGFR > 60 (>60) 07/07/17 07:30 Calcium 9.7 mg/dL (8.5-10.1) 07/07/17 07:30 Total Bilirubin 0.3 mg/dL (0.2-1.0) 07/07/17 07:30 AST 27 U/L (15-37) D 07/07/17 07:30 ALT 16 U/L (12-78) 07/07/17 07:30 Alkaline Phosphatase 197 U/L (45-117) H 07/07/17 07:30 Total Protein 8.4 g/dl (6.4-8.2) H 07/07/17 07:30 Albumin 2.7 g/dl (3.4-5.0) L 07/07/17 07:30 Medical Decision Making 45-year-old male history of asthma, profound mental retardation, cerebral palsy , functional quadriplegia, recurrent epistaxis, seizure disorder, history of Katherine fundoplication (stomach wrapped to prevent reflux), s/p PEG, recurrent pneumonia, respiratory failure, oxygen dependent, sent from [facility] for upper respiratory congestion. Previously in ICU and now on floor. There was concern for possible aspiration PNA. CXR w/ progressive R infiltrate, effusion and congestion. Extubated and not on mechanical ventilation with improving mental status but more restless today. Patient on IV Abx, Zosyn. ID following. Can continue seizure medications, Lamictal, Topamax, Valproate. Ativan PRN can also be used at low dose for agitation or if seizure occurs but no motor abnormal activity noted on exam or witnessed. Awaiting discharge.
[2017-07-08] MEDS ORDERED: DIVALPROEX SODIUM 125 MG SPRINKLE CAPS (FP) GT ONE (11:15)
[2017-07-08] MEDS: lamoTRIgine 100 MG TABLET (FP) GT SCH (11:33)
[2017-07-08] MEDS: LORATADINE 10 MG TABLET GT SCH (11:33)
[2017-07-08] MEDS: TOPIRAMATE 25 MG TABLET (FP) NR SCH (11:33)
[2017-07-08 11:59] VITALS: BP 113/88; PULSE 84; TEMP 97.7
== END 2017-07-08 12:00 | disposition home or self-care (01) | DRG 720 ==
LOC: JER 09:58 → JERBED 13:09 → JICU 18:57 → J2W 06-24 17:48 → JICU 06-25 06:50 → J5S 06-30 18:27
PROVIDERS: ADMIT Internal Medicine; ATTEND Nurse Practitioner Family
PROC: 5A1955Z Respiratory Ventilation, Greater than 96 Consecutive Hours (ICD-10-PCS; principal; 2017-06-22)
PROC: 0BH17EZ Insertion of Endotracheal Airway into Trachea, Via Natural or Artificial Opening (ICD-10-PCS; 2017-06-22)
PROC: 3E0F7GC Introduction of Other Therapeutic Substance into Respiratory Tract, Via Natural or Artificial Opening (ICD-10-PCS; 2017-06-22)
DX: A41.9 Sepsis, unspecified organism (principal); R65.21 Severe sepsis with septic shock; J69.0 Pneumonitis due to inhalation of food and vomit; R53.2 Functional quadriplegia; F73 Profound intellectual disabilities; G40.909 Epilepsy, unspecified, not intractable, without status epilepticus; G80.9 Cerebral palsy, unspecified; D69.6 Thrombocytopenia, unspecified; J96.22 Acute and chronic respiratory failure with hypercapnia; J45.909 Unspecified asthma, uncomplicated; K21.9 Gastro-esophageal reflux disease without esophagitis; E03.9 Hypothyroidism, unspecified; Z43.1 Encounter for attention to gastrostomy; J06.9 Acute upper respiratory infection, unspecified; R04.0 Epistaxis; D64.9 Anemia, unspecified; D47.3 Essential (hemorrhagic) thrombocythemia; J96.21 Acute and chronic respiratory failure with hypoxia; Z99.81 Dependence on supplemental oxygen; J98.11 Atelectasis
CPT/HCPCS: 36415; 36600; 71010-TC; 80048; 80053; 80164; 81003; 81015; 82375; 82803; 83050; 83605; 83735; 84100; 84132; 84443; 84484; 85025; 85027; 87040; 87070; 87086; 87186; 87205; 93005; 93010; 94002; 94640; 99284-25; G0480

== ENCOUNTER 2018-02-20 03:51 | Inpatient (IN) | payer OTHER ==
[2018-02-20] MEDS ORDERED: ALBUTEROL SO4 0.083% IH SOL 2.5 MG/3 ML VIAL.NEB. NEB ONE ×3 (04:06→05:19)
[2018-02-20] MEDS ORDERED: ASPIRIN 81 MG CHEWABLE TABLETS PO ONE (04:06)
[2018-02-20] MEDS ORDERED: methylPREDNISolone NA SUCC 125 MG/2 ML VIAL IVPB ONE (04:06)
--- NOTE | 2018-02-20 04:11 | PDOC ---
History of Present Illness - General Chief Complaint: Respiratory Distress Stated Complaint: DIFFICULTY BREATHING Time Seen by Provider: 02/20/18 03:59 History Source: [facility] ([place]) Exam Limitations: Physical Impairment - History of Present Illness Initial Comments: 02/20/18 04:16 47-year-old male sent from [facility] with O2 sats 87-88% despite albuterol treatment and suction, patient was sent to the emergency room for evaluation of hypoxia. denies fever/ chills, nausea, vomiting,seizure activity. Patient has a history of congenital quadriplegia seizure disorder, optic atrophy , esophagitis, profound mental retardation, pelgr-huet blood numbly, cortical blindness, GERD status post Katherine fundoplication with G-tube, orchidectomy, orchidopexy. Past History - Past Medical History Allergies/Adverse Reactions: Allergies Allergy/AdvReac Type Severity Reaction Status Date / Time levofloxacin [From Levaquin] Allergy Intermediate Verified 02/20/18 03:59 Quinolones Allergy Unknown Verified 02/20/18 03:59 Cephalosporins Allergy Verified 02/20/18 03:59 Home Medications: Ambulatory Orders Albuterol 0.083% Nebulizer Yolanda [Ventolin 0.083% Nebulizer Soln -] 1 amp NEB Q8H PRN 06/22/17 Calcium Carbonate/Vitamin D3 [Oyster Shell 500-Vit D3 200 Tb] 1 each GT BID Clonazepam 0.5 mg GT TID 06/22/17 Diazepam [Diastat Acudial] 1 each RC PRN PRN 06/22/17 Divalproex Sodium [Depakote] 375 mg GT BID 06/22/17 Ferrous Sulfate *Liquid* [Feosol *Liquid*] 5 ml GT BID 06/22/17 Gabapentin 200 mg GT TID 06/22/17 Lamotrigine [Lamictal Xr] 200 mg GT BID 06/22/17 Levothyroxine [Synthroid -] 50 mcg GT DAILY 06/22/17 Loratadine 10 mg GT DAILY 06/22/17 Multivit-Min/FA/Lycopen/Lutein [Vitrum 50+ Senior Tablet] 1 each GT DAILY Nutritional Supplement/Fiber [Promote with Fiber Liquid] 830 ml GT DAILY Polyethylene Glycol 3350 [Glycolax] 17 gm GT DAILY 06/22/17 Protein Supplement [Promod] 30 ml GT DAILY 06/22/17 Sennosides [Senna] 2 tab GT HS 06/22/17 Sodium Chloride Nasal Gel [[place] Saline Nasal Gel -] 1 applic TP DAILY 06/22/17 Sodium Chloride Tablet - 2.5 tab GT HS 06/22/17 Sodium Chloride Tablet - 3.5 tab GT AM 06/22/17 Topiramate 25 gm GT BID 06/22/17 Albuterol 2.5/Ipratropium 0.5 [Duoneb -] 1 amp NEB Q4HWA #30 amp 07/07/17 Guaifenesin [Robitussin -] 10 ml GT Q6H PRN #1 bottle 07/07/17 Mupirocin Ointment [Bactroban 2% Ointment -] 1 applic TP TID applic 07/07/17 Scopolamine Hydrobromide [Transderm-Scop -] 1 patch TD Q72H #20 patch 07/07/17 Sodium Chloride Nasal [place] [[place] Nasal [place] -] 2 spray NS TID PRN #1 bottle 07/07/17 Glycopyrrolate [Robinul] 1 mg GT TID 09/04/17 Picc Line Flush [Picc Line Flush -] 8 ml IVPUSH PRN PRN #0 ml 09/12/17 Piperacillin/Tazob 4.5 gm [Zosyn 4.5GM Ivpb (Premix)] 100 ml IVPB Q8H-IV #15 bag 09/12/17 Polyvinyl Alcohol [Artificial Tears] 1 spray OU BID PRN #1 bottle 09/12/17 Azithromycin 500 mg PO DAILY #1 tablet 09/13/17 Divalproex [Depakote -] 02/20/18 Gabapentin [Neurontin -] 200 mg PO Q8H 02/20/18 Anemia: No Asthma: No Cancer: No Cardiac Disorders: Yes COPD: No CHF: No DVT: No Dementia: Yes (severe MENTAL RETARDATION) Diabetes: Yes GI Disorders: Yes (GERD) Disorders: No HTN: No Hypercholesterolemia: No Liver Disease: No Seizures: Yes Thyroid Disease: No - Surgical History Abdominal Surgery: Yes Appendectomy: No Cardiac Surgery: No Cholecystectomy: No GI Surgery: Yes (PEG TUBE PLACEMENT) Lung Surgery: No Orthopedic Surgery: No - Immunization History Td Vaccination: Yes TDAP Vaccination: No Immunization Up to Date: Yes - Suicide/Smoking/Psychosocial Hx Smoking Status: No Smoking History: Never smoked Have you smoked in the past 12 months: No Number of Cigarettes Smoked Daily: 0 Information on smoking cessation initiated: No Hx Alcohol Use: No Drug/Substance Use Hx: No Substance Use Type: None Hx Substance Use Treatment: No Respiratory Specific PMHX - Complaint Specific PMHX Pneumonia: Yes (history) *Physical Exam - Vital Signs Last Vital Signs Temp Pulse Resp BP Pulse Ox 97.7 F 82 20 96/60 88 L 02/20/18 03:54 02/20/18 03:54 02/20/18 03:54 02/20/18 03:54 02/20/18 03:54 - Physical Exam General Appearance: Yes: Mild Distress Respiratory/Chest: positive: Decreased Breath Sounds Cardiovascular: positive: Regular Rhythm, Regular Rate Gastrointestinal/Abdominal: positive: Normal Bowel Sounds Extremity: positive: Normal Capillary Refill, Normal Inspection, Normal Range of Motion Neurologic: positive: Respond to painful stimul ED Treatment Course - LABORATORY CBC & Chemistry Diagram: 02/20/18 04:50 02/20/18 04:50 Progress Note - Progress Note Progress Note: A: hypoxia; respiratory acidosis P: cbc Cmp blood culture chest xray left lower lobe infiltrate? ua Medical Decision Making - Medical Decision Making patient signed out to TIMMY martinez. pending disposition to hospitalist service. *DC/Admit/Observation/Transfer Diagnosis at time of Disposition: Hypercapnia, Acute respiratory acidosis - Referrals - Patient Instructions - Post Discharge Activity
--- NOTE | 2018-02-20 04:15 | PDOC ---
*Physical Exam - Vital Signs Last Vital Signs Temp Pulse Resp BP Pulse Ox 97.7 F 82 20 96/60 88 L 02/20/18 03:54 02/20/18 03:54 02/20/18 03:54 02/20/18 03:54 02/20/18 03:54 ED Treatment Course - LABORATORY CBC & Chemistry Diagram: 02/24/18 09:15 02/22/18 06:10 Medical Decision Making - Medical Decision Making 02/20/18 04:15 agree with care from RAMON Awad *DC/Admit/Observation/Transfer Diagnosis at time of Disposition: Hypercapnia, Acute respiratory acidosis - Discharge Dispostion Condition at time of disposition: Fair - Referrals - Patient Instructions - Post Discharge Activity
[2018-02-20] MEDS ORDERED: methylPREDNISolone NA SUCC 125 MG/2 ML VIAL ONE (04:18)
[2018-02-20] MEDS ORDERED: SODIUM CHLORIDE 1,000 ML IV STA (04:21)
[2018-02-20 04:39] LABS: ARTERIAL BLD GAS O2 SATURATION 77.4 % (90-98.9); ARTERIAL BLOOD GAS BASE EXCESS -0.6 meq/l (-2-2); ARTERIAL BLOOD GAS pH 7.27 (7.35-7.45); CARBOXYHEMOGLOBIN 1.2 gm% (0.5-2.0)
[2018-02-20 04:43] LABS: ALLENS TEST POSITIVE
[2018-02-20] MEDS ORDERED: methylPREDNISolone NA SUCC 125 MG/2 ML VIAL IVPUSH ONE (04:49)
[2018-02-20 04:50] LABS: ARTERIAL BLOOD GAS PCO2 62.2 mmHg (35-45)
[2018-02-20 04:51] LABS: ARTERIAL BLOOD GAS PO2 46.1 mmHg (80-100)
[2018-02-20] MEDS ORDERED: ASPIRIN 81 MG CHEWABLE TABLETS ONE (04:57)
[2018-02-20 05:00] LABS: BASO % 0.2 % (0-2.0); EOS % 0.3 % (0-4.5); HEMATOCRIT 38.6 % (35.4-49); HEMOGLOBIN 12.8 GM/dL (11.7-16.9); MCHC 33.2 g/dl (32.0-35.9); MEAN CELL VOLUME 105.6 fl (80-96); MEAN PLT VOLUME 8.9 fl (7.5-11.1); MONO % 15.1 % (3.8-10.2); NEUT % 74.4 % (42.8-82.8); PLATELET COUNT 159 K/MM3 (134-434); RBC 3.66 M/mm3 (4.00-5.60); RDW 15.1 % (11.9-15.9); WHITE BLOOD COUNT 6.7 K/mm3 (4.0-10.0)
[2018-02-20] MEDS: ALBUTEROL SO4 0.083% IH SOL 2.5 MG/3 ML VIAL.NEB. NEB SCH ×4 (05:23→06:00)
[2018-02-20] MEDS ORDERED: AZITHROMYCIN IVPB 500 MG in DEXTROSE 5%-WATER - 250 ML IVPB ONE (06:40)
[2018-02-20] MEDS ORDERED: AZITHROMYCIN IVPB 250 ML IVPB ONE (07:04)
[2018-02-20 07:39] LABS: ANION GAP 9 (8-16); BILIRUBIN,TOTAL 0.2 mg/dL (0.2-1.0); BLOOD UREA NITROGEN 29 mg/dL (7-18); CALCIUM 8.7 mg/dL (8.5-10.1); CHLORIDE 103 mmol/L (98-107); CO2 24 mmol/L (21-32); GLUCOSE,RANDOM 148 mg/dL (74-106); SGPT/ALT 48 U/L (12-78); SODIUM 136 mmol/L (136-145); TOT PROT 7.7 g/dl (6.4-8.2)
[2018-02-20 07:42] LABS: ALK PHOS 192 U/L (45-117)
[2018-02-20 07:46] LABS: POTASSIUM 5.2 mmol/L (3.5-5.1); SGOT/AST 37 U/L (15-37)
[2018-02-20] MEDS ORDERED: ALBUTEROL SO4 0.083% IH SOL 2.5 MG/3 ML VIAL.NEB. NEB PRN (08:14)
--- NOTE | 2018-02-20 08:14 | HP ---
CHIEF COMPLAINT: " Was sent from [place] for evaluation of hypoxia" PCP: Dr. Astudillo HISTORY OF PRESENT ILLNESS: Non verbal at baseline, history obtained from Patient is a 47 year old male sent from [facility] for evaluation of hypoxia. As per the health aid who is at bedside mentioned that while checking the vitals yesterday, patient's saturation was found to be between 87-88 % not relieved with albuterol and suction. Hence brought to the ED for further evaluation and treatment. Health aid denies noticing any recent changes, no h/o fever, rigors or sweating. Has a G tube placed. On home oxygen 1-2 L throughout the day. Bowel/Bladder habit normal. Sleep normal. Patient was admitted last year on 09/04/17 for Sepsis secondary to PNA, was treated with IV Zosyn, IV Azithromycin and was sent to [facility] with 14 days of abx through PICC line. ER course was notable for: (1) Afebrile, hypotensive 96/60 mmHg, Saturation 88 % (2) CXR: Right infiltrate, fluids on the left base and atelectasis (3) ABG: Respiratory acidosis (4) IV Azithromycin, Albuterol, Bipap. Recent Travel: None PAST MEDICAL HISTORY: Cerebral palsy, Congenital quadriplegia, Seizure, optic atrophy, esophagitis, profround MR, Cortical blindness, GERD s/p Katherine fundoplication with G-tube, orchidectomy and orchidopexy., Hypothyroidism, Asthma PAST SURGICAL HISTORY: G-tube Social History: Smoking: None Alcohol: None Drugs: None Family History: Unknown Allergies levofloxacin [From Levaquin] Allergy (Intermediate, Verified 02/20/18 03:59) rash Quinolones Allergy (Unknown, Verified 02/20/18 03:59) Cephalosporins Allergy (Verified 02/20/18 03:59) HOME MEDICATIONS: Home Medications Medication Instructions Recorded Albuterol 0.083% Nebulizer Yolanda 1 amp NEB Q8H PRN 06/22/17 [Ventolin 0.083% Nebulizer Soln -] Calcium Carbonate/Vitamin D3 1 each GT BID 06/22/17 [[place] 500-Vit D3 200 Tb] Clonazepam 0.5 mg GT TID 06/22/17 Diazepam [Diastat Acudial] 1 each RC PRN PRN 06/22/17 Divalproex Sodium [Depakote] 375 mg GT BID 06/22/17 Ferrous Sulfate *Liquid* [Feosol 5 ml GT BID 06/22/17 *Liquid*] Gabapentin 200 mg GT TID 06/22/17 Lamotrigine [Lamictal Xr] 200 mg GT BID 06/22/17 Levothyroxine [Synthroid -] 50 mcg GT DAILY 06/22/17 Loratadine 10 mg GT DAILY 06/22/17 Multivit-Min/FA/Lycopen/Lutein 1 each GT DAILY 06/22/17 [Vitrum 50+ Senior Tablet] Nutritional Supplement/Fiber 830 ml GT DAILY 06/22/17 [Promote with Fiber Liquid] Polyethylene Glycol 3350 [Glycolax] 17 gm GT DAILY 06/22/17 Protein Supplement [Promod] 30 ml GT DAILY 06/22/17 Sennosides [Senna] 2 tab GT HS 06/22/17 Sodium Chloride Nasal Gel [[place] 1 applic TP DAILY 06/22/17 Saline Nasal Gel -] Sodium Chloride Tablet - 2.5 tab GT HS 06/22/17 Sodium Chloride Tablet - 3.5 tab GT AM 06/22/17 Topiramate 25 gm GT BID 06/22/17 Albuterol 2.5/Ipratropium 0.5 1 amp NEB Q4HWA #30 amp 07/07/17 [Duoneb -] Guaifenesin [Robitussin -] 10 ml GT Q6H PRN #1 bottle 07/07/17 Mupirocin Ointment [Bactroban 2% 1 applic TP TID applic 07/07/17 Ointment -] Scopolamine Hydrobromide 1 patch TD Q72H #20 patch 07/07/17 [Transderm-Scop -] Sodium Chloride Nasal [place] [[place] 2 spray NS TID PRN #1 bottle 07/07/17 [place] Nasal [place] -] Glycopyrrolate [Robinul] 1 mg GT TID 09/04/17 Picc Line Flush [Picc Line Flush -] 8 ml IVPUSH PRN PRN #0 ml 09/12/17 Piperacillin/Tazob 4.5 gm [Zosyn 100 ml IVPB Q8H-IV #15 bag 09/12/17 4.5GM Ivpb (Premix)] Polyvinyl Alcohol [Artificial 1 spray OU BID PRN #1 bottle 09/12/17 Tears] Azithromycin 500 mg PO DAILY #1 tablet 09/13/17 Divalproex [Depakote -] 02/20/18 Gabapentin [Neurontin -] 200 mg PO Q8H 02/20/18 REVIEW OF SYSTEMS CONSTITUTIONAL: Absent: fever, chills, diaphoresis, generalized weakness, malaise, loss of appetite, weight change HEENT: Absent: rhinorrhea, nasal congestion, throat pain, throat swelling, difficulty swallowing, mouth swelling, ear pain, eye pain, visual changes CARDIOVASCULAR: Absent: chest pain, syncope, palpitations, irregular heart rate, lightheadedness , peripheral edema RESPIRATORY: Absent: cough, shortness of breath, dyspnea with exertion, orthopnea, wheezing, stridor, hemoptysis GASTROINTESTINAL: Absent: abdominal pain, abdominal distension, nausea, vomiting, diarrhea, constipation, melena, hematochezia GENITOURINARY: Absent: dysuria, frequency, urgency, hesitancy, hematuria, flank pain, genital pain MUSCULOSKELETAL: Absent: myalgia, arthralgia, joint swelling, back pain, neck pain SKIN: Absent: rash, itching, pallor HEMATOLOGIC/IMMUNOLOGIC: Absent: easy bleeding, easy bruising, lymphadenopathy, frequent infections ENDOCRINE: Absent: unexplained weight gain, unexplained weight loss, heat intolerance, cold intolerance NEUROLOGIC: Absent: headache, focal weakness or paresthesias, dizziness, unsteady gait, seizure, mental status changes, bladder or bowel incontinence PSYCHIATRIC: Absent: anxiety, depression, suicidal or homicidal ideation, hallucinations. PHYSICAL EXAMINATION Vital Signs - 24 hr 02/20/18 02/20/18 03:54 05:40 Temperature 97.7 F Pulse Rate 82 Respiratory 20 Rate Blood Pressure 96/60 O2 Sat by Pulse 88 L 94 L Oximetry (%) GENERAL: Congenital quadriplegic, eyes closed, arousable, on Bipap maintaining saturation. HEAD: Normal with no signs of trauma. EYES: No pallor or icterus. EARS, NOSE, THROAT: Ears normal. Moist mucous membranes. NECK: Supple. LUNGS: B/L coarse breath sounds with grunting, no wheeze or crackles. Not using accessory muscles. HEART: Regular rate and rhythm, normal S1 and S2 with soft systolic murmur. ABDOMEN: G-tube in place, surrounding area looks erythematous due to the pressure of the base of the tube, no drainage, area looks clean, Soft, nontender , not distended, normoactive bowel sounds, no guarding, no rebound, no masses. No hepatomegaly or splenomegaly. MUSCULOSKELETAL: Normal range of motion at all joints. Contracted limbs. UPPER EXTREMITIES: 2+ pulses, warm, well-perfused. No cyanosis. No clubbing. No peripheral edema. LOWER EXTREMITIES: 2+ pulses, warm, well-perfused. No calf tenderness. No peripheral edema. NEUROLOGICAL: Non verbal at baseline. SKIN: Warm, dry, normal turgor, no rashes or lesions noted, normal capillary refill. Laboratory Results - last 24 hr 02/20/18 02/20/18 02/20/18 04:17 04:50 04:50 WBC 6.7 D RBC 3.66 L D Hgb 12.8 D Hct 38.6 D MCV 105.6 H MCH 35.0 H MCHC 33.2 RDW 15.1 Plt Count 159 MPV 8.9 Neutrophils % 74.4 D Lymphocytes % 10.0 D Monocytes % 15.1 H D Eosinophils % 0.3 Basophils % 0.2 Puncture Site Left radial ABG pH 7.27 L ABG pCO2 at Pt Temp 62.2 H* ABG pO2 at Pt Temp 46.1 L* D ABG HCO3 27.3 H ABG O2 Sat (Measured) 77.4 L ABG O2 Content 14.2 L ABG Base Excess -0.6 Jovanni Test Positive Carboxyhemoglobin 1.2 Methemoglobin 1.4 O2 Delivery Device Room air Oxygen Flow Rate No Sodium Cancelled Potassium Cancelled Chloride Cancelled Carbon Dioxide Cancelled Anion Gap Cancelled BUN Cancelled Creatinine Cancelled Creat Clearance w eGFR Cancelled Random Glucose Cancelled Lactic Acid Calcium Cancelled Total Bilirubin Cancelled AST Cancelled ALT Cancelled Alkaline Phosphatase Cancelled Creatine Kinase Troponin I Total Protein Cancelled Albumin Cancelled 02/20/18 02/20/18 02/20/18 04:50 04:50 06:31 WBC RBC Hgb Hct MCV MCH MCHC RDW Plt Count MPV Neutrophils % Lymphocytes % Monocytes % Eosinophils % Basophils % Puncture Site ABG pH ABG pCO2 at Pt Temp ABG pO2 at Pt Temp ABG HCO3 ABG O2 Sat (Measured) ABG O2 Content ABG Base Excess Jovanni Test Carboxyhemoglobin Methemoglobin O2 Delivery Device Oxygen Flow Rate Sodium Cancelled Potassium Cancelled Chloride Cancelled Carbon Dioxide Cancelled Anion Gap Cancelled BUN Cancelled Creatinine Cancelled Creat Clearance w eGFR Cancelled Random Glucose Cancelled Lactic Acid 1.6 Calcium Cancelled Total Bilirubin Cancelled AST Cancelled ALT Cancelled Alkaline Phosphatase Cancelled Creatine Kinase Troponin I < 0.02 Total Protein Cancelled Albumin Cancelled 02/20/18 06:31 WBC RBC Hgb Hct MCV MCH MCHC RDW Plt Count MPV Neutrophils % Lymphocytes % Monocytes % Eosinophils % Basophils % Puncture Site ABG pH ABG pCO2 at Pt Temp ABG pO2 at Pt Temp ABG HCO3 ABG O2 Sat (Measured) ABG O2 Content ABG Base Excess Jovanni Test Carboxyhemoglobin Methemoglobin O2 Delivery Device Oxygen Flow Rate Sodium 136 Potassium 5.2 H D Chloride 103 Carbon Dioxide 24 Anion Gap 9 BUN 29 H D Creatinine 1.0 Creat Clearance w eGFR > 60 Random Glucose 148 H D Lactic Acid Calcium 8.7 Total Bilirubin 0.2 D AST 37 D ALT 48 D Alkaline Phosphatase 192 H Creatine Kinase 47 Troponin I < 0.02 Total Protein 7.7 Albumin 3.0 L D CXR: Right infiltrate, fluids on the left base and atelectasis ASSESSMENT/PLAN: Patient is a 47 year old male with significant past medical history of Cerebral palsy, seizure, h/o PNA, asthma sent from [facility] for evaluation of hypoxia. # Acute hypoxic respiratory failure likely secondary to Health care associated Pneumonia with aspiration PNA. Was hypoxic to 87-88 % even on oxygen and albuterol treatment at [facility]. Saturation improved after suctioning in the ED and Bipap. On arrival, pt was afebrile, hypotensive to 90/60 mmHg, no leukocytosis, normal lactic acid. CXR showed Right infiltrate, fluids on the left base and atelectasis Admit in Med-Surg, Inpatient IV Zosyn 3.375 gm Q8H, ID consult appreciated IV Azithromycin 500mg Daily Albuterol nebs PRN Continue Bipap, will repeat ABG in PM. Respiratory therapy request for Chest PT and deep suctioning HOB elevation to 30-45 degrees NPO except for meds through G tube D5-1/2 NS @ 75 mls/hr Would consider CT of chest if symptoms do not improve. RSV, Flu swab, Cold agglutinins, Urine for legionella, # Seizure- no active seizure at this time Continue home meds: Lamotrigine 200mg GT BID; Diazepam rectal Gel PRN, Topiramate,Depakoate 375mg GT bid # Hypothyroidism Continue Levothyroxine 50 mcg GT # Asthma Continue Albuterol Nebs Dry eyes Eye drops Artificial tears OU BID # Medications confirmed from the chart from [facility]. # FEN D5-1/2 NS @ 75mls/hr Electrolytes WNL NPO except meds through GT # Prophylaxis For DVT: On Heparin 5000 IU sq TID, watch for any bleeding For GI: Not indicated # Code Status: Unknown # Dispo: Admitted in Med-Surg. Duration of stay unknown. Plan of care explained to the health aid. She verbalized understanding. Case discussed with Dr. Easley and Dr. Shin. Visit type - Emergency Visit Emergency Visit: Yes ED Registration Date: 02/20/18 Care time: The patient presented to the Emergency Department on the above date and was hospitalized for further evaluation of their emergent condition. - New Patient This patient is new to me today: Yes Date on this admission: 02/20/18 - Critical Care Critical Care patient: No Hospitalist Screening - Colonoscopy Questionnaire Colonoscopy Questionnaire: Colonoscopy Questionnaire - Patient: 50 - 75 years old and never had a screening colonoscopy: Unknown History of colon or rectal polyps, or CA: Unknown History of IBD, Crohn's disease or UC: Unknown History of abdominal radiation therapy as a child: Unknown - Relative: 1 with colon or rectal CA, or polyps at age 60 or younger: Unknown Colon or rectal CA diagnosed at age 45 or younger: Unknown Multiple relatives with colon or rectal CA: Unknown - Outcome: Screening Result: Negative Screen
[2018-02-20] MEDS ORDERED: SODIUM CHLORIDE NASAL SPRAY 44 ML BOTTLE NS PRN (08:21)
[2018-02-20] MEDS ORDERED: diazePAM ACUDIAL 5-7.5-10 MG 1 EACH KIT RC PRN (08:21)
--- NOTE | 2018-02-20 08:22 | PDOC ---
*Physical Exam - Vital Signs Last Vital Signs Temp Pulse Resp BP Pulse Ox 97.7 F 82 20 96/60 94 L 02/20/18 03:54 02/20/18 03:54 02/20/18 03:54 02/20/18 03:54 02/20/18 05:40 - Physical Exam General Appearance: Yes: Appropriately Dressed. No: Apparent Distress Neck: positive: Supple Respiratory/Chest: positive: Normal Breath Sounds Cardiovascular: positive: Regular Rate, S1, S2 Gastrointestinal/Abdominal: positive: Soft Integumentary: positive: Dry, Warm Neurologic: positive: Alert, Normal Mood/Affect ED Treatment Course - LABORATORY CBC & Chemistry Diagram: 02/20/18 04:50 02/20/18 06:31 - ADDITIONAL ORDERS Additional order review: Laboratory Results 02/20/18 02/20/18 02/20/18 06:31 06:31 04:50 Puncture Site ABG pH ABG pCO2 at Pt Temp ABG pO2 at Pt Temp ABG HCO3 ABG O2 Sat (Measured) ABG O2 Content ABG Base Excess Jovanni Test Carboxyhemoglobin Methemoglobin O2 Delivery Device Oxygen Flow Rate Sodium 136 Cancelled Potassium 5.2 H D Cancelled Chloride 103 Cancelled Carbon Dioxide 24 Cancelled Anion Gap 9 Cancelled BUN 29 H D Cancelled Creatinine 1.0 Cancelled Creat Clearance w eGFR > 60 Cancelled Random Glucose 148 H D Cancelled Lactic Acid 1.6 Calcium 8.7 Cancelled Total Bilirubin 0.2 D Cancelled AST 37 D Cancelled ALT 48 D Cancelled Alkaline Phosphatase 192 H Cancelled Creatine Kinase 47 Troponin I < 0.02 Total Protein 7.7 Cancelled Albumin 3.0 L D Cancelled 02/20/18 02/20/18 02/20/18 04:50 04:50 04:17 Puncture Site Left radial ABG pH 7.27 L ABG pCO2 at Pt Temp 62.2 H* ABG pO2 at Pt Temp 46.1 L* D ABG HCO3 27.3 H ABG O2 Sat (Measured) 77.4 L ABG O2 Content 14.2 L ABG Base Excess -0.6 Jovanni Test Positive Carboxyhemoglobin 1.2 Methemoglobin 1.4 O2 Delivery Device Room air Oxygen Flow Rate No Sodium Cancelled Potassium Cancelled Chloride Cancelled Carbon Dioxide Cancelled Anion Gap Cancelled BUN Cancelled Creatinine Cancelled Creat Clearance w eGFR Cancelled Random Glucose Cancelled Lactic Acid Calcium Cancelled Total Bilirubin Cancelled AST Cancelled ALT Cancelled Alkaline Phosphatase Cancelled Creatine Kinase Troponin I < 0.02 Total Protein Cancelled Albumin Cancelled 02/20/18 04:50 RBC 3.66 L D MCV 105.6 H MCHC 33.2 RDW 15.1 MPV 8.9 Neutrophils % 74.4 D Lymphocytes % 10.0 D Monocytes % 15.1 H D Eosinophils % 0.3 Basophils % 0.2 - Medications Given in the ED: ED Medications Discontinued Medications Generic Name Dose Route Start Last Admin Trade Name Freq PRN Reason Stop Dose Admin Albuterol Sulfate 1 amp 02/20/18 04:06 02/20/18 05:12 Ventolin 0.083% Nebulizer Soln - NEB 02/20/18 04:07 1 amp ONCE ONE Administration Albuterol Sulfate 1 amp 02/20/18 05:00 02/20/18 06:00 Ventolin 0.083% Nebulizer Soln - NEB 02/20/18 05:46 1 amp Q15M GILL Administration Aspirin 162 mg 02/20/18 04:06 02/20/18 05:12 Asa - PO 02/20/18 04:07 162 mg ONCE ONE Administration Sodium Chloride 1,000 mls @ 1,000 mls/hr 02/20/18 04:21 02/20/18 05:16 Normal Saline - IV 02/20/18 05:20 1,000 mls/hr ASDIR STA Administration Azithromycin 500 mg/ Dextrose 250 mls @ 250 mls/hr 02/20/18 06:40 02/20/18 07 :08 IVPB 02/20/18 07:39 250 mls/hr ONCE ONE Administration Methylprednisolone Sodium Succinate 125 mg 02/20/18 04:06 02/20/18 05:12 Solu-Medrol - IVPB 02/20/18 04:07 125 mg ONCE ONE Administration Methylprednisolone Sodium Succinate 125 mg 02/20/18 04:49 02/20/18 05:13 Solu-Medrol - IVPUSH 02/20/18 04:50 Not Given ONCE ONE Medical Decision Making - Medical Decision Making 02/20/18 07:52 Pt signed out to me by RAMON Awad Pt is a 47 yo male, sent from [facility] w/ hypoxia. Pt has h/o MR, congenital quadriplegia, blindness, seizure disorder, esophagitis, GERD, s/p post G-tube. Sating 88% on RA w/ resp acidosis on blood gas. Possible infiltrate on chest x-ray and has since been given antibiotics, multiple drug allergies. Patient doing well on BiPAP and currently admitted *DC/Admit/Observation/Transfer Diagnosis at time of Disposition: Hypercapnia, Acute respiratory acidosis - Discharge Dispostion Condition at time of disposition: Fair Admit: Yes - Referrals - Patient Instructions - Post Discharge Activity
--- NOTE | 2018-02-20 09:19 | EKG ---
Test Reason : Blood Pressure : / mmHG Vent. Rate : 074 BPM Atrial Rate : 074 BPM P-R Int : 184 ms QRS Dur : 126 ms QT Int : 386 ms P-R-T Axes : 069 004 -10 degrees QTc Int : 428 ms NORMAL SINUS RHYTHM NON-SPECIFIC INTRA-VENTRICULAR CONDUCTION BLOCK T WAVE ABNORMALITY, CONSIDER INFERIOR ISCHEMIA T WAVE ABNORMALITY, CONSIDER ANTEROLATERAL ISCHEMIA ABNORMAL ECG WHEN COMPARED WITH ECG OF 04-SEP-2017 14:57, [place] INTERVAL HAS DECREASED T WAVE INVERSION LESS EVIDENT IN LATERAL LEADS Confirmed by SUHAS PEREZ MD ([id number]) on 02/20/2018 9:18:56 AM Referred By: Confirmed By:SUHAS PEREZ MD
[2018-02-20] MEDS ORDERED: PIPERACIL/TAZOB 3.375 GM 3.375 GM/50 ML PREMIX IVPB ONE (09:45)
[2018-02-20] MEDS ORDERED: PIPERACIL/TAZOB 3.375 GM 3.375 GM/50 ML PREMIX IVPB SCH (10:00)
--- NOTE | 2018-02-20 10:07 | PN ---
Progress Note (short form) - Note Progress Note: ID consult dictated d/w TM resident 47 year old man from [facility]- pmh seizures/MR/quadraplegia hypoxia right lung infiltrate ?left lower lobe infiltrate versus atelectasis at risk for aspiration zosyn/zith cultures legionella urine influenza rsv cold agglutinins Problem List - Problems (1) Hypoxia Code(s): R09.02 - HYPOXEMIA (2) Pneumonia Code(s): J18.9 - PNEUMONIA, UNSPECIFIED ORGANISM
--- NOTE | 2018-02-20 10:47 | CONS ---
DATE OF CONSULTATION: REQUESTING PHYSICIAN: Hospitalist service. Patient was seen in the emergency room. HISTORY: This is a 47-year-old man who comes from the [facility]. He has a history of congential quadriplegia, mental retardation, nonverbal at baseline, total care. He has it looks to be 1 or 2 admissions a year to [facility] for pneumonia. The last time he was here he was here in August at which time he was found to have pneumonia. His sputum grew pansensitive pseudomonas, and he was treated with Zosyn and Zithromax. He now returns because he was noted to have hypoxia at the [place] [facility]. An aide from the [place] [facility] is present, and she reports that he is at baseline on nasal while there. She is not sure how much. The patient is unable to give any history. There are no reports of any vomiting. There are no reports of any fevers, chills, or seizure activity. ALLERGIES: QUINOLONES and CEPHALOSPORINS but on multiple admissions has tolerated Zosyn. MEDICATIONS: At the [place] [facility] include Topamax, sodium chloride tablets, Scopolamine patch, Senna, protein supplements, Synthroid, Lamictal, Neurontin, Lasix, Depakote, Diastat, albuterol nebulizer, and DuoNeb nebulizer. PAST MEDICAL HISTORY: Notable for history of as stated before history of 1-2 admissions a year for pneumonia. He has a history of congenital quadriplegia, seizure disorder, optic atrophy, esophagitis, profound, mental retardation, cortical blindness, GERD. PAST SURGICAL HISTORY: Notable for G-tube placement. He has had a Katherine fundoplication in the past and an orchiectomy. SOCIAL HISTORY: He is a longstanding resident of the [facility]. Clearly, no history of any substance use. PHYSICAL EXAMINATION: Vital Signs: He is comfortable on BiPAP at 50% saturating 94%. Temperature 97.7, pulse 82, blood pressure 96/60, respiratory rate 20 HEENT: Normocephalic though he has a protuberance at the top of his head. Neck: Supple. Lungs: Diminished breath sounds at the bases. Heart: Regular rate and rhythm. Abdomen: Firm, nontender. G-tube site is clean. Extremities: Without edema. LABORATORY DATA: White count 6.7, hemoglobin 12.8, platelets 159. His chemistries, BUN 29, creatinine 1. LFTs, he has an alkaline phosphatase of 192. Cultures have been sent and are pending. Chest x-ray appears to have a left perihilar infiltrate that appears new as well as a possible left lower lobe atelectasis versus infiltrate with a small effusion. He had a blood gas done in the emergency room and was noted to have a PCO2 of 62 and a PO2 of 46 on room air. In summary, this is a 47-year-old man admitted with hypoxia, right-sided infiltrate with a possible left lower lobe pneumonia as well at risk for aspiration. No history of resistant organisms. Would treat him with Zosyn and Zithromax at this time. Blood cultures have been sent. Would send a Legionella urine if possible as well as an influenza screen, RSV screen, and cold agglutinin. This case was discussed at least with the teaching medicine resident. SELINA BRAVO M.D. SARITHA/[id number]
[2018-02-20] MEDS: DEXTROSE 5%-0.45% SALINE 1,000 ML IV SCH ×2 (11:10→20:00)
[2018-02-20] MEDS: FERROUS SO4 300 MG/5 ML ORAL SOLN UNIT DOSE CUPS GT SCH ×2 (11:19→21:46)
[2018-02-20] MEDS: LEVOTHYROXINE NA 50 MCG TABLET (FP) GT SCH (11:19)
[2018-02-20] MEDS: LORATADINE 10 MG TABLET GT SCH (11:19)
[2018-02-20] MEDS: TOPIRAMATE 25 MG TABLET (FP) PO SCH ×2 (11:20→21:48)
[2018-02-20] MEDS: PIPERACILLIN/TAZOB 3.375 GM 3.375 GM in DEXTROSE 5%-WATER - 50 ML IVPB SCH ×2 (12:17→19:00)
[2018-02-20] MEDS: SCOPOLAMINE HYDROBROMIDE 1 PATCH PATCH.TD72 TD SCH (12:17)
[2018-02-20 12:22] LABS: URINE APPEARANCE CLEAR; URINE BILIRUBIN NEGATIVE (<2.0 mg/dL); URINE BLOOD NEGATIVE (NEGATIVE); URINE COLOR YELLOW; URINE GLUCOSE (UA) 2+ (NEGATIVE); URINE KETONE NEGATIVE (NEGATIVE); URINE LEUK ESTERASE NEGATIVE (NEGATIVE); URINE NITRITE NEGATIVE (NEGATIVE); URINE UROBILINOGEN NEGATIVE mg/dL (0.2-1.0)
[2018-02-20 12:23] LABS: URINE PROTEIN 1+ (NEGATIVE)
[2018-02-20 12:24] LABS: EPI CELLS RARE /HPF (FEW); URINE BACTERIA RARE /hpf (NONE SEEN); URINE MUCUS RARE
[2018-02-20] MEDS: POLYETHYLENE GLYCOL 3350 255 GM BTL PO SCH (12:44)
[2018-02-20] MEDS: MULTIVIT-MINERALS ORAL LIQUID GT SCH (12:44)
[2018-02-20] MEDS: DIVALPROEX SODIUM 125 MG SPRINKLE CAPS GT SCH ×2 (12:51→21:45)
[2018-02-20] MEDS: lamoTRIgine 100 MG TABLET (FP) GT SCH ×2 (12:51→22:54)
[2018-02-20 13:45] LABS: ARTERIAL BLD GAS O2 SATURATION 94.9 % (90-98.9); ARTERIAL BLOOD GAS BASE EXCESS -3.1 meq/l (-2-2); ARTERIAL BLOOD GAS PO2 78.1 mmHg (80-100)
[2018-02-20 13:49] LABS: ARTERIAL BLOOD GAS PCO2 60.2 mmHg (35-45); ARTERIAL BLOOD GAS pH 7.25 (7.35-7.45)
--- NOTE | 2018-02-20 15:13 | PN ---
Teaching Attending Note Name of Resident: Sakshi Cornell ATTENDING PHYSICIAN STATEMENT I saw and evaluated the patient. I reviewed the resident's note and discussed the case with the resident. I agree with the resident's findings and plan as documented. SUBJECTIVE: Patient is lying in bed on Bipap. OBJECTIVE: Vital Signs Temperature 98.2 F 02/20/18 14:09 Pulse Rate 65 02/20/18 14:09 Respiratory Rate 16 02/20/18 14:09 Blood Pressure 104/66 02/20/18 14:09 O2 Sat by Pulse Oximetry (%) 98 02/20/18 14:55 GENERAL: Congenital quadriplegic, eyes closed, arousable, on Bipap maintaining saturation. in mild distress. HEAD: Normal with no signs of trauma. EYES: No pallor or icterus. EARS, NOSE, THROAT: Ears normal. Moist mucous membranes. NECK: Supple. no JVD LUNGS: B/L coarse breath sounds with grunting, decreased BS BL, no wheeze or crackles. Not using accessory muscles. HEART: Regular rate and rhythm, normal S1 and S2 with soft systolic murmur. ABDOMEN: G-tube in place, looks clean, Soft, nontender, not distended, normoactive bowel sounds, no guarding, no rebound, no masses. MUSCULOSKELETAL: Contracted limbs. EXTREMITIES: 2+ pulses, warm, well-perfused. no peripheral edema. contracted. NEUROLOGICAL: Non verbal at baseline. SKIN: Warm, dry, normal turgor, no rashes or lesions noted, normal capillary refill. CBCD WBC 6.7 K/mm3 (4.0-10.0) D 02/20/18 04:50 RBC 3.66 M/mm3 (4.00-5.60) L D 02/20/18 04:50 Hgb 12.8 GM/dL (11.7-16.9) D 02/20/18 04:50 Hct 38.6 % (35.4-49) D 02/20/18 04:50 MCV 105.6 fl (80-96) H 02/20/18 04:50 MCHC 33.2 g/dl (32.0-35.9) 02/20/18 04:50 RDW 15.1 % (11.9-15.9) 02/20/18 04:50 Plt Count 159 K/MM3 (134-434) 02/20/18 04:50 MPV 8.9 fl (7.5-11.1) 02/20/18 04:50 CMP Sodium 136 mmol/L (136-145) 02/20/18 06:31 Potassium 5.2 mmol/L (3.5-5.1) H D 02/20/18 06:31 Chloride 103 mmol/L (98-107) 02/20/18 06:31 Carbon Dioxide 24 mmol/L (21-32) 02/20/18 06:31 Anion Gap 9 (8-16) 02/20/18 06:31 BUN 29 mg/dL (7-18) H D 02/20/18 06:31 Creatinine 1.0 mg/dL (0.7-1.3) 02/20/18 06:31 Creat Clearance w eGFR > 60 (>60) 02/20/18 06:31 Random Glucose 148 mg/dL (74-106) H D 02/20/18 06:31 Calcium 8.7 mg/dL (8.5-10.1) 02/20/18 06:31 Total Bilirubin 0.2 mg/dL (0.2-1.0) D 02/20/18 06:31 AST 37 U/L (15-37) D 02/20/18 06:31 ALT 48 U/L (12-78) D 02/20/18 06:31 Alkaline Phosphatase 192 U/L (45-117) H 02/20/18 06:31 Total Protein 7.7 g/dl (6.4-8.2) 02/20/18 06:31 Albumin 3.0 g/dl (3.4-5.0) L D 02/20/18 06:31 CARDIAC ENZYMES Creatine Kinase 47 IU/L (39-308) 02/20/18 06:31 Troponin I < 0.02 ng/ml (0.00-0.05) 02/20/18 06:31 Current Medications Generic Name Dose Route Start Last Admin Trade Name Freq PRN Reason Stop Dose Admin Albuterol Sulfate 1 amp 02/20/18 08:14 Ventolin 0.083% Nebulizer Soln - NEB Q4H PRN SHORT OF BREATH/WHEEZING Albuterol/Ipratropium 1 amp 02/20/18 10:00 Duoneb - NEB Q4HWA GILL Artificial Tears 1 drop 02/20/18 08:21 Artificial Tears OU BID PRN DRY EYES Clonazepam 0.5 mg 02/20/18 14:00 Klonopin - GT TID GILL Diazepam 0 mg 02/20/18 08:21 Diastat Rectal Gel - RC PRN PRN SEIZURE Divalproex Sodium 375 mg 02/20/18 12:15 02/20/18 12:51 Depakote Sprinkle Caps - GT 375 mg BID GILL Administration Ferrous Sulfate 300 mg 02/20/18 10:00 Feosol GT BID GILL Furosemide 20 mg 02/20/18 10:00 Lasix - PO DAILY GILL Gabapentin 200 mg 02/20/18 14:00 Neurontin Oral Liquid - GT TID GILL Heparin Sodium (Porcine) 5,000 unit 02/20/18 14:00 Heparin - SQ TID GILL Dextrose/Sodium Chloride 1,000 mls @ 75 mls/hr 02/20/18 08:15 02/20/18 11:10 D5-1/2ns - IV 75 mls/hr ASDIR GILL Administration Piperacillin Sod/Tazobactam 50 mls @ 100 mls/hr 02/20/18 10:30 02/20/18 12:17 Sod 3.375 gm/ Dextrose IVPB 100 mls/hr Q8H-IV GILL Administration Azithromycin 500 mg/ Dextrose 250 mls @ 250 mls/hr 02/21/18 10:00 IVPB DAILY GILL Lamotrigine 200 mg 02/20/18 12:15 02/20/18 12:51 Lamictal - GT 200 mg BID GILL Administration Levothyroxine Sodium 50 mcg 02/20/18 10:00 Synthroid - GT ACBK GILL Loratadine 10 mg 02/20/18 10:00 Claritin - GT DAILY GILL Mupirocin 1 applic 02/20/18 14:00 Bactroban 2% Ointment - TP TID GILL Polyethylene Glycol 17 gm 02/20/18 10:00 02/20/18 12:44 Miralax (For Bowel Prep) - PO 17 gm DAILY GILL Administration Scopolamine HBr 1 patch 02/20/18 10:00 02/20/18 12:17 Transderm-Scop - TD 1 patch Q72H GILL Administration Senna 2 tab 02/20/18 22:00 Senna - PO HS GILL Sodium Chloride 2 spray 02/20/18 08:21 [place] Nasal [place] - NS TID PRN NASAL CONGESTION Topiramate 25 mg 02/20/18 10:00 Topamax - PO BID [facility] Home Medications Medication Instructions Recorded Albuterol 0.083% Nebulizer Yolanda 1 amp NEB Q8H PRN 06/22/17 [Ventolin 0.083% Nebulizer Soln -] Calcium Carbonate/Vitamin D3 1 each GT BID 06/22/17 [Oyster Shell 500-Vit D3 200 Tb] Clonazepam 0.5 mg GT TID 06/22/17 Diazepam [Diastat Acudial] 1 each RC PRN PRN 06/22/17 Divalproex Sodium [Depakote] 375 mg GT BID 06/22/17 Ferrous Sulfate *Liquid* [Feosol 5 ml GT BID 06/22/17 *Liquid*] Gabapentin 200 mg GT TID 06/22/17 Lamotrigine [Lamictal Xr] 200 mg GT BID 06/22/17 Levothyroxine [Synthroid -] 50 mcg GT DAILY 06/22/17 Loratadine 10 mg GT DAILY 06/22/17 Multivit-Min/FA/Lycopen/Lutein 1 each GT DAILY 06/22/17 [Vitrum 50+ Senior Tablet] Nutritional Supplement/Fiber 830 ml GT DAILY 06/22/17 [Promote with Fiber Liquid] Polyethylene Glycol 3350 [Glycolax] 17 gm GT DAILY 06/22/17 Protein Supplement [Promod] 30 ml GT DAILY 06/22/17 Sennosides [Senna] 2 tab GT HS 06/22/17 Sodium Chloride Nasal Gel [Vera 1 applic TP DAILY 06/22/17 Saline Nasal Gel -] Sodium Chloride Tablet - 2.5 tab GT HS 06/22/17 Sodium Chloride Tablet - 3.5 tab GT AM 06/22/17 Topiramate 25 gm GT BID 06/22/17 Albuterol 2.5/Ipratropium 0.5 1 amp NEB Q4HWA #30 amp 07/07/17 [Duoneb -] Guaifenesin [Robitussin -] 10 ml GT Q6H PRN #1 bottle 07/07/17 Mupirocin Ointment [Bactroban 2% 1 applic TP TID applic 07/07/17 Ointment -] Scopolamine Hydrobromide 1 patch TD Q72H #20 patch 07/07/17 [Transderm-Scop -] Sodium Chloride Nasal [place] [[place] 2 spray NS TID PRN #1 bottle 07/07/17 [place] Nasal [place] -] Glycopyrrolate [Robinul] 1 mg GT TID 09/04/17 Picc Line Flush [Picc Line Flush -] 8 ml IVPUSH PRN PRN #0 ml 09/12/17 Piperacillin/Tazob 4.5 gm [Zosyn 100 ml IVPB Q8H-IV #15 bag 09/12/17 4.5GM Ivpb (Premix)] Polyvinyl Alcohol [Artificial 1 spray OU BID PRN #1 bottle 09/12/17 Tears] Azithromycin 500 mg PO DAILY #1 tablet 09/13/17 Divalproex [Depakote -] 02/20/18 Furosemide [Lasix] 20 mg PO DAILY 02/20/18 Gabapentin [Neurontin -] 200 mg PO Q8H 02/20/18 CXR: New right infiltrate. LLL atelectasis is read by radiologist ASSESSMENT AND PLAN: Patient is a 47 year old male with significant past medical history of Cerebral palsy, seizure, h/o PNA, asthma sent from [facility] for evaluation of hypoxia. # Acute hypoxic respiratory failure due to HCAP with possible aspiration PNA presented with hypoxia 87-88 % , On IV Zosyn 3.375 gm Q8H, Zithromax ordered ID consult appreciated, Neb treatments, on Bipap now, will get pulmonary to see the patient. will repeat ABG in am . Elevate HOB to 30-45 degrees, NPO for now. hold the feeding for now. on IVFD5-1/2 NS @ 75 mls/hr x 1liter, RSV, Flu swab, Cold agglutinins, Urine for legionella and mycoplasma. # Seizure- no active seizure at this time continue home meds: Lamotrigine 200mg GT BID; Diazepam rectal Gel PRN, Topiramate,Depakoate 375mg GT bid # Hypothyroidism continue Levothyroxine 50 mcg GT # Asthma continue Albuterol Nebs # DVT Prophylaxis: On Heparin 5000 sq # Code Status: full code for now.
[2018-02-20] MEDS ORDERED: HEPARIN NA (PORCINE) 5,000 UNITS/ML 1ML VIAL ONE (15:18)
[2018-02-20] MEDS ORDERED: clonazePAM 0.5 MG TABLET ONE (15:18)
[2018-02-20] MEDS: GABAPENTIN 250 MG/5 ML ORAL SOLUTION, 470 ML BOTTLE GT SCH ×2 (15:20→21:47)
[2018-02-20] MEDS: HEPARIN NA (PORCINE) 5,000 UNITS/ML 1ML VIAL SQ SCH ×2 (15:20→21:49)
[2018-02-20] MEDS: clonazePAM 0.5 MG TABLET GT SCH ×2 (15:20→21:47)
[2018-02-20] MEDS ORDERED: PIPERACILLIN/TAZOB 3.375 GM 3.375 GM/50 ML BAG IVPB ONE (17:50)
[2018-02-20 20:49] VITALS: BMI 19.8
[2018-02-20] MEDS: SENNOSIDES 8.6MG TABLET (FP) PO SCH (21:47)
[2018-02-20] MEDS: ALBUTEROL SO4 2.5/IPRATROPIUM 0.5 INH SOL 3 ML VIAL.NEB. NEB SCH (22:00)
[2018-02-20] MEDS: MUPIROCIN 2% TOPICAL OINTMENT 22 GM TUBE TP SCH ×2 (22:54→22:56)
[2018-02-21] MEDS ORDERED: PIPERACILLIN/TAZOBACTAM 3.375 GM VIAL IVPB ONE ×4 (01:00→22:39)
[2018-02-21] MEDS ORDERED: DEXTROSE 5%-WATER - 50 ML IVPB ONE ×4 (01:00→22:39)
[2018-02-21] MEDS: PIPERACILLIN/TAZOB 3.375 GM 3.375 GM in DEXTROSE 5%-WATER - 50 ML IVPB SCH ×3 (02:34→17:28)
[2018-02-21] MEDS: GABAPENTIN 250 MG/5 ML ORAL SOLUTION, 470 ML BOTTLE GT SCH ×3 (05:45→23:12)
[2018-02-21] MEDS: clonazePAM 0.5 MG TABLET GT SCH ×3 (05:45→23:12)
[2018-02-21] MEDS: MUPIROCIN 2% TOPICAL OINTMENT 22 GM TUBE TP SCH ×2 (05:46→13:44)
[2018-02-21] MEDS: HEPARIN NA (PORCINE) 5,000 UNITS/ML 1ML VIAL SQ SCH ×3 (05:46→23:13)
[2018-02-21] MEDS: LEVOTHYROXINE NA 50 MCG TABLET (FP) GT SCH (06:00)
[2018-02-21] MEDS: ALBUTEROL SO4 2.5/IPRATROPIUM 0.5 INH SOL 3 ML VIAL.NEB. NEB SCH ×5 (06:30→22:00)
[2018-02-21 08:08] LABS: HEMATOCRIT 33.6 % (35.4-49); HEMOGLOBIN 11.3 GM/dL (11.7-16.9); MCH 35.1 pg (25.7-33.7); MCHC 33.5 g/dl (32.0-35.9); MEAN CELL VOLUME 104.8 fl (80-96); MEAN PLT VOLUME 8.6 fl (7.5-11.1); PLATELET COUNT 134 K/MM3 (134-434); RBC 3.21 M/mm3 (4.00-5.60); RDW 14.6 % (11.9-15.9); WHITE BLOOD COUNT 11.2 K/mm3 (4.0-10.0)
[2018-02-21 08:28] LABS: ANION GAP 8 (8-16); BLOOD UREA NITROGEN 18 mg/dL (7-18); CALCIUM 9.7 mg/dL (8.5-10.1); CHLORIDE 105 mmol/L (98-107); CO2 27 mmol/L (21-32); CREATININE 0.7 mg/dL (0.7-1.3); GLUCOSE,RANDOM 88 mg/dL (74-106); MAGNESIUM 2.3 mg/dL (1.8-2.4); PHOSPHOROUS 2.7 mg/dL (2.5-4.9); POTASSIUM 4.9 mmol/L (3.5-5.1); SODIUM 140 mmol/L (136-145)
[2018-02-21] MEDS ORDERED: PT OWN MED DRAWER 7, Y5N ONE ×2 (08:56→13:35)
[2018-02-21] MEDS: DEXTROSE 5%-0.45% SALINE 1,000 ML IV SCH (09:06)
[2018-02-21] MEDS: TOPIRAMATE 25 MG TABLET (FP) PO SCH ×2 (09:07→23:11)
[2018-02-21] MEDS: LORATADINE 10 MG TABLET GT SCH (09:07)
[2018-02-21] MEDS: MULTIVIT-MINERALS ORAL LIQUID GT SCH (09:08)
[2018-02-21] MEDS: DIVALPROEX SODIUM 125 MG SPRINKLE CAPS GT SCH ×2 (09:08→23:11)
[2018-02-21] MEDS: lamoTRIgine 100 MG TABLET (FP) GT SCH ×2 (09:09→23:12)
[2018-02-21] MEDS: FERROUS SO4 300 MG/5 ML ORAL SOLN UNIT DOSE CUPS GT SCH ×2 (09:09→23:12)
[2018-02-21] MEDS: POLYETHYLENE GLYCOL 3350 255 GM BTL PO SCH (09:10)
[2018-02-21] MEDS: FUROSEMIDE 20 MG TABLET (FP) PO SCH (09:15)
--- NOTE | 2018-02-21 11:14 | CON.PULM ---
Consult Consult Specialty:: PULM/CCM Referred by:: ZEKE Reason for Consultation:: SOB - History of Present Illness Chief Complaint: SOB History of Present Illness: 47 M, well known to me from previous admissions with listed medical history. Recurrent admissions for PNA/Pneumonitis. Admitted from [facility] for evaluation of hypoxemia. Required NIPPV for respiratory support. CXR: Diffuse infiltrates on the right/left base consistent with pneumonitis. - History Source History Provided By: Medical Record Limitations to Obtaining History: Clinical Condition - Past Medical History [employer]: Yes: Dementia, Seizure, Other (Cerebral Palsy w quadriplegia, severe mental retardation) Pulmonary: Yes: Pneumonia Gastrointestinal: Yes: GERD, Other (peg tube) Musculoskeletal: Yes: Other (scoliosis) ENT: Yes: Allergic Rhinitis Endocrine: Yes: Other (h/o hyponatremia) Additional Medical History: optic atrophy. h/o hypothermia - Past Surgical History Past Surgical History: Yes: Orchiectomy, Upper Endoscopy - Alcohol/Substance Use Hx Alcohol Use: No History of Substance Use: reports: None - Smoking History Smoking history: Never smoked Have you smoked in the past 12 months: No Aproximately how many cigarettes per day: 0 - Social History Usual Living Arrangement: Longterm ADL: Support Services History of Recent Travel: No Home Medications - Allergies Allergies/Adverse Reactions: Allergies Allergy/AdvReac Type Severity Reaction Status Date / Time levofloxacin [From Levaquin] Allergy Intermediate Verified 02/20/18 03:59 Quinolones Allergy Unknown Verified 02/20/18 03:59 Cephalosporins Allergy Verified 02/20/18 03:59 - Home Medications Home Medications: Ambulatory Orders Albuterol 0.083% Nebulizer Yolanda [Ventolin 0.083% Nebulizer Soln -] 1 amp NEB Q8H PRN 06/22/17 Calcium Carbonate/Vitamin D3 [[place]yster [place] 500-Vit D3 200 Tb] 1 each GT BID Clonazepam 0.5 mg GT TID 06/22/17 Diazepam [Diastat Acudial] 1 each RC PRN PRN 06/22/17 Divalproex Sodium [Depakote] 375 mg GT BID 06/22/17 Ferrous Sulfate *Liquid* [Feosol *Liquid*] 5 ml GT BID 06/22/17 Gabapentin 200 mg GT TID 06/22/17 Lamotrigine [Lamictal Xr] 200 mg GT BID 06/22/17 Levothyroxine [Synthroid -] 50 mcg GT DAILY 06/22/17 Loratadine 10 mg GT DAILY 06/22/17 Multivit-Min/FA/Lycopen/Lutein [Vitrum 50+ Senior Tablet] 1 each GT DAILY Nutritional Supplement/Fiber [Promote with Fiber Liquid] 830 ml GT DAILY Polyethylene Glycol 3350 [Glycolax] 17 gm GT DAILY 06/22/17 Protein Supplement [Promod] 30 ml GT DAILY 06/22/17 Sennosides [Senna] 2 tab GT HS 06/22/17 Sodium Chloride Nasal Gel [[place] Saline Nasal Gel -] 1 applic TP DAILY 06/22/17 Sodium Chloride Tablet - 2.5 tab GT HS 06/22/17 Sodium Chloride Tablet - 3.5 tab GT AM 06/22/17 Topiramate 25 gm GT BID 06/22/17 Albuterol 2.5/Ipratropium 0.5 [Duoneb -] 1 amp NEB Q4HWA #30 amp 07/07/17 Guaifenesin [Robitussin -] 10 ml GT Q6H PRN #1 bottle 07/07/17 Mupirocin Ointment [Bactroban 2% Ointment -] 1 applic TP TID applic 07/07/17 Scopolamine Hydrobromide [Transderm-Scop -] 1 patch TD Q72H #20 patch 07/07/17 Sodium Chloride Nasal [place] [[place] Nasal [place] -] 2 spray NS TID PRN #1 bottle 07/07/17 Glycopyrrolate [Robinul] 1 mg GT TID 09/04/17 Picc Line Flush [Picc Line Flush -] 8 ml IVPUSH PRN PRN #0 ml 09/12/17 Piperacillin/Tazob 4.5 gm [Zosyn 4.5GM Ivpb (Premix)] 100 ml IVPB Q8H-IV #15 bag 09/12/17 Polyvinyl Alcohol [Artificial Tears] 1 spray OU BID PRN #1 bottle 09/12/17 Azithromycin 500 mg PO DAILY #1 tablet 09/13/17 Divalproex [Depakote -] 02/20/18 Furosemide [Lasix] 20 mg PO DAILY 02/20/18 Gabapentin [Neurontin -] 200 mg PO Q8H 02/20/18 Family Disease History - Family Disease History Family Disease History: Other: Father, Mother Review of Systems Unable to obtain ROS, reason: cannot provide Physical Exam Vital Sings: Vital Signs Temperature 98.2 F 02/21/18 06:00 Pulse Rate 77 02/21/18 06:00 Respiratory Rate 18 02/21/18 06:00 Blood Pressure 104/61 02/21/18 06:00 O2 Sat by Pulse Oximetry (%) 94 L 02/20/18 20:20 Constitutional: Yes: Mild Distress Eyes: Yes: Conjunctiva Clear, EOM Intact HENT: Yes: Atraumatic Neck: Yes: Supple, Trachea Midline Cardiovascular: Yes: Regular Rate and Rhythm Respiratory: Yes: Cough, Diminished, On BiPap, Rhonchi, SOB, Tachypnea. No: Accessory Muscle Use, Stridor, Wheezes ...Clubbing: No Gastrointestinal: Yes: WNL, Normal Bowel Sounds, Soft Renal/: Yes: WNL Breast(s): Yes: WNL Musculoskeletal: Yes: WNL Extremities: Yes: Shortened Edema: No Peripheral Pulses WNL: Yes Integumentary: Yes: WNL Neurological: Yes: Confusion Labs: CBC, BMP 02/21/18 06:02 02/21/18 06:02 ABG Results ABG pH 7.25 (7.35-7.45) L 02/20/18 13:40 ABG pCO2 at Pt Temp 60.2 mmHg (35-45) H* 02/20/18 13:40 ABG pO2 at Pt Temp 78.1 mmHg (80-100) L D 02/20/18 13:40 ABG HCO3 25.2 meq/L (22-26) 02/20/18 13:40 ABG O2 Sat (Measured) 94.9 % (90-98.9) 02/20/18 13:40 ABG O2 Content 19.9 % vol (15-22) 02/20/18 13:40 ABG Base Excess -3.1 meq/l (-2-2) L 02/20/18 13:40 Imaging - Results Chest X-ray: Report Reviewed, Image Reviewed Problem List - Problems (1) Acute respiratory acidosis Code(s): E87.2 - ACIDOSIS (2) Hypercapnia Code(s): R06.89 - OTHER ABNORMALITIES OF BREATHING (3) Hypoxia Code(s): R09.02 - HYPOXEMIA (4) Pneumonia Code(s): J18.9 - PNEUMONIA, UNSPECIFIED ORGANISM (5) Acute respiratory failure Code(s): J96.00 - ACUTE RESPIRATORY FAILURE, UNSP W HYPOXIA OR HYPERCAPNIA (6) Functional quadriplegia Code(s): R53.2 - FUNCTIONAL QUADRIPLEGIA (7) Asthma Code(s): J45.909 - UNSPECIFIED ASTHMA, UNCOMPLICATED Qualifiers: Asthma severity: mild intermittent Asthma complication type: uncomplicated Qualified Code(s): J45.20 - Mild intermittent asthma, uncomplicated (8) Cerebral palsy, quadriplegic Code(s): G80.8 - OTHER CEREBRAL PALSY (9) GERD (gastroesophageal reflux disease) Code(s): K21.9 - GASTRO-ESOPHAGEAL REFLUX DISEASE WITHOUT ESOPHAGITIS (10) Hypothyroidism Code(s): E03.9 - HYPOTHYROIDISM, UNSPECIFIED (11) Mental retardation Code(s): F79 - UNSPECIFIED INTELLECTUAL DISABILITIES (12) PEG (percutaneous endoscopic gastrostomy) status Code(s): Z93.1 - GASTROSTOMY STATUS (13) Scoliosis Code(s): M41.9 - SCOLIOSIS, UNSPECIFIED (14) Seizure disorder Code(s): G40.909 - EPILEPSY, UNSP, NOT INTRACTABLE, WITHOUT STATUS EPILEPTICUS Assessment/Plan Increase back up rate to 22 Maintain other settings Ensure properly fitting mask ABX per ID Aspiration precautions Follow cultures Daily medrol BD TX Follow ABG / CXR Thank you. Dr Rivas
[2018-02-21 11:42] LABS: PLATELET ESTIMATE DECREASED
[2018-02-21] MEDS: AZITHROMYCIN IVPB 500 MG in DEXTROSE 5%-WATER - 250 ML IVPB SCH (12:11)
[2018-02-21] MEDS: methylPREDNISolone NA SUCC 40 MG/1 ML VIAL IVPUSH SCH (12:22)
[2018-02-21 14:31] LABS: ARTERIAL BLD GAS O2 SATURATION 94.1 % (90-98.9); ARTERIAL BLOOD GAS BASE EXCESS 2.2 meq/l (-2-2); ARTERIAL BLOOD GAS PO2 67.3 mmHg (80-100); ARTERIAL BLOOD GAS pH 7.37 (7.35-7.45)
[2018-02-21 14:40] LABS: ALLENS TEST POSITIVE
--- NOTE | 2018-02-21 18:27 | PN ---
Physical Exam: SUBJECTIVE: Patient seen and examined Patient continues to be on Bipap. OBJECTIVE: Vital Signs Temperature 96.5 F L 02/21/18 17:26 Pulse Rate 63 02/21/18 17:26 Respiratory Rate 20 02/21/18 17:26 Blood Pressure 108/63 02/21/18 17:26 O2 Sat by Pulse Oximetry (%) 97 02/21/18 10:00 GENERAL: The patient is lying in bed comfortably , NAD, on Bipap HEAD: Normal with no signs of trauma. EYES: barely opens his eyes looks lethargic . ENT: Ears normal, on Bipap. NECK: Trachea midline, full range of motion, supple. LUNGS: decreased Breath sounds BL, no accessory muscle use. HEART: Regular rate and rhythm, S1, S2 without murmur, rub or gallop. ABDOMEN: Soft, nontender, nondistended, normoactive bowel sounds, no guarding, no rebound, no hepatosplenomegaly, no masses appreciated. EXTREMITIES: 2+ pulses, warm, well-perfused, no edema. NEUROLOGICAL: Unable to access . PSYCH: positive for MR. SKIN: Warm, dry, normal turgor, no rashes or lesions noted CBCD WBC 11.2 K/mm3 (4.0-10.0) H D 02/21/18 06:02 RBC 3.21 M/mm3 (4.00-5.60) L 02/21/18 06:02 Hgb 11.3 GM/dL (11.7-16.9) L D 02/21/18 06:02 Hct 33.6 % (35.4-49) L 02/21/18 06:02 MCV 104.8 fl (80-96) H 02/21/18 06:02 MCHC 33.5 g/dl (32.0-35.9) 02/21/18 06:02 RDW 14.6 % (11.9-15.9) 02/21/18 06:02 Plt Count 134 K/MM3 (134-434) 02/21/18 06:02 MPV 8.6 fl (7.5-11.1) 02/21/18 06:02 CMP Sodium 140 mmol/L (136-145) 02/21/18 06:02 Potassium 4.9 mmol/L (3.5-5.1) 02/21/18 06:02 Chloride 105 mmol/L (98-107) 02/21/18 06:02 Carbon Dioxide 27 mmol/L (21-32) 02/21/18 06:02 Anion Gap 8 (8-16) 02/21/18 06:02 BUN 18 mg/dL (7-18) D 02/21/18 06:02 Creatinine 0.7 mg/dL (0.7-1.3) D 02/21/18 06:02 Creat Clearance w eGFR > 60 (>60) 02/20/18 06:31 Random Glucose 88 mg/dL (74-106) D 02/21/18 06:02 Calcium 9.7 mg/dL (8.5-10.1) 02/21/18 06:02 Total Bilirubin 0.2 mg/dL (0.2-1.0) D 02/20/18 06:31 AST 37 U/L (15-37) D 02/20/18 06:31 ALT 48 U/L (12-78) D 02/20/18 06:31 Alkaline Phosphatase 192 U/L (45-117) H 02/20/18 06:31 Total Protein 7.7 g/dl (6.4-8.2) 02/20/18 06:31 Albumin 3.0 g/dl (3.4-5.0) L D 02/20/18 06:31 CARDIAC ENZYMES Creatine Kinase 47 IU/L (39-308) 02/20/18 06:31 Troponin I < 0.02 ng/ml (0.00-0.05) 02/20/18 06:31 Current Medications Generic Name Dose Route Start Last Admin Trade Name Freq PRN Reason Stop Dose Admin Albuterol Sulfate 1 amp 02/20/18 08:14 Ventolin 0.083% Nebulizer Soln - NEB Q4H PRN SHORT OF BREATH/WHEEZING Albuterol/Ipratropium 1 amp 02/20/18 10:00 02/21/18 14:00 Duoneb - NEB 1 amp Q4HWA GILL Administration Artificial Tears 1 drop 02/20/18 08:21 Artificial Tears OU BID PRN DRY EYES Clonazepam 0.5 mg 02/20/18 14:00 02/21/18 13:32 Klonopin - GT 0.5 mg TID GILL Administration Diazepam 0 mg 02/20/18 08:21 Diastat Rectal Gel - RC PRN PRN SEIZURE Divalproex Sodium 375 mg 02/20/18 12:15 02/21/18 09:08 Depakote Sprinkle Caps - GT 375 mg BID GILL Administration Ferrous Sulfate 300 mg 02/20/18 10:00 02/21/18 09:09 Feosol GT 300 mg BID GILL Administration Furosemide 20 mg 02/20/18 10:00 02/21/18 09:15 Lasix - PO Not Given DAILY GILL Gabapentin 200 mg 02/20/18 14:00 02/21/18 13:37 Neurontin Oral Liquid - GT 200 mg TID GILL Administration Heparin Sodium (Porcine) 5,000 unit 02/20/18 14:00 02/21/18 13:33 Heparin - SQ 5,000 unit TID GILL Administration Dextrose/Sodium Chloride 1,000 mls @ 75 mls/hr 02/20/18 08:15 02/21/18 09:06 D5-1/2ns - IV 75 mls/hr ASDIR GILL Administration Piperacillin Sod/Tazobactam 50 mls @ 100 mls/hr 02/20/18 10:30 02/21/18 17:28 Sod 3.375 gm/ Dextrose IVPB 100 mls/hr Q8H-IV GILL Administration Azithromycin 500 mg/ Dextrose 250 mls @ 250 mls/hr 02/21/18 10:00 02/21/18 12 :11 IVPB 250 mls/hr DAILY GILL Administration Lamotrigine 200 mg 02/20/18 12:15 02/21/18 09:09 Lamictal - GT 200 mg BID GILL Administration Levothyroxine Sodium 50 mcg 02/20/18 10:00 02/21/18 06:00 Synthroid - GT 50 mcg ACBK GILL Administration Loratadine 10 mg 02/20/18 10:00 02/21/18 09:07 Claritin - GT 10 mg DAILY GILL Administration Methylprednisolone Sodium Succinate 40 mg 02/21/18 11:15 02/21/18 12:22 Solu-Medrol - IVPUSH 02/25/18 10:01 40 mg DAILY GILL Administration Mupirocin 1 applic 02/20/18 14:00 02/21/18 13:44 Bactroban 2% Ointment - TP 1 applic TID GILL Administration Polyethylene Glycol 17 gm 02/20/18 10:00 02/21/18 09:10 Miralax (For Bowel Prep) - PO 17 gm DAILY GILL Administration Scopolamine HBr 1 patch 02/20/18 10:00 02/20/18 12:17 Transderm-Scop - TD 1 patch Q72H GILL Administration Senna 2 tab 02/20/18 22:00 02/20/18 21:47 Senna - PO 2 tab HS GILL Administration Sodium Chloride 2 spray 02/20/18 08:21 [place] Nasal Spelter - NS TID PRN NASAL CONGESTION Topiramate 25 mg 02/20/18 10:00 02/21/18 09:07 Topamax - PO 25 mg BID GILL Administration Home Medications Medication Instructions Recorded Albuterol 0.083% Nebulizer Yolanda 1 amp NEB Q8H PRN 06/22/17 [Ventolin 0.083% Nebulizer Soln -] Calcium Carbonate/Vitamin D3 1 each GT BID 06/22/17 [[place]yster [place] 500-Vit D3 200 Tb] Clonazepam 0.5 mg GT TID 06/22/17 Diazepam [Diastat Acudial] 1 each RC PRN PRN 06/22/17 Divalproex Sodium [Depakote] 375 mg GT BID 06/22/17 Ferrous Sulfate *Liquid* [Feosol 5 ml GT BID 06/22/17 *Liquid*] Gabapentin 200 mg GT TID 06/22/17 Lamotrigine [Lamictal Xr] 200 mg GT BID 06/22/17 Levothyroxine [Synthroid -] 50 mcg GT DAILY 06/22/17 Loratadine 10 mg GT DAILY 06/22/17 Multivit-Min/FA/Lycopen/Lutein 1 each GT DAILY 06/22/17 [Vitrum 50+ Senior Tablet] Nutritional Supplement/Fiber 830 ml GT DAILY 06/22/17 [Promote with Fiber Liquid] Polyethylene Glycol 3350 [Glycolax] 17 gm GT DAILY 06/22/17 Protein Supplement [Promod] 30 ml GT DAILY 06/22/17 Sennosides [Senna] 2 tab GT HS 06/22/17 Sodium Chloride Nasal Gel [[place] 1 applic TP DAILY 06/22/17 Saline Nasal Gel -] Sodium Chloride Tablet - 2.5 tab GT HS 06/22/17 Sodium Chloride Tablet - 3.5 tab GT AM 06/22/17 Topiramate 25 gm GT BID 06/22/17 Albuterol 2.5/Ipratropium 0.5 1 amp NEB Q4HWA #30 amp 07/07/17 [Duoneb -] Guaifenesin [Robitussin -] 10 ml GT Q6H PRN #1 bottle 07/07/17 Mupirocin Ointment [Bactroban 2% 1 applic TP TID applic 07/07/17 Ointment -] Scopolamine Hydrobromide 1 patch TD Q72H #20 patch 07/07/17 [Transderm-Scop -] Sodium Chloride Nasal Spelter [Grand 2 spray NS TID PRN #1 bottle 07/07/17 Spelter Nasal Spelter -] Glycopyrrolate [Robinul] 1 mg GT TID 09/04/17 Picc Line Flush [Picc Line Flush -] 8 ml IVPUSH PRN PRN #0 ml 09/12/17 Piperacillin/Tazob 4.5 gm [Zosyn 100 ml IVPB Q8H-IV #15 bag 09/12/17 4.5GM Ivpb (Premix)] Polyvinyl Alcohol [Artificial 1 spray OU BID PRN #1 bottle 09/12/17 Tears] Azithromycin 500 mg PO DAILY #1 tablet 09/13/17 Divalproex [Depakote -] 02/20/18 Furosemide [Lasix] 20 mg PO DAILY 02/20/18 Gabapentin [Neurontin -] 200 mg PO Q8H 02/20/18 Microbiology 02/20/18 08:12 Urine - Urine - Catheterized Urine Culture - Final NO GROWTH OBTAINED 02/20/18 04:50 Blood - Peripheral Venous Blood Culture - Preliminary NO GROWTH OBTAINED AFTER 24 HOURS, INCUBATION TO CONTINUE FOR 4 DAYS. 02/20/18 04:50 Blood - Peripheral Venous Blood Culture - Preliminary NO GROWTH OBTAINED AFTER 24 HOURS, INCUBATION TO CONTINUE FOR 4 DAYS. 02/20/18 12:00 Urine For Antigen Detection Legionella Antigen - Preliminary 02/20/18 12:00 Urine For Antigen Detection Streptococcus pneumoniae Antigen (M - Final 02/20/18 14:15 Nasopharyngeal Swab Respiratory Syncytial Virus Ag - Final==> 02/20/18 08:12 Nasopharyngeal Swab Influenza Types A,B Antigen (DINA) - Final 02/20/18 08:12 Nasopharyngeal Swab - Final CXR: New right infiltrate. LLL atelectasis is read by radiologist CXR on 02/21/2018 worsening Right infiltrate ASSESSMENT AND PLAN: Patient is a 47 year old male with significant past medical history of Cerebral palsy, seizure, h/o PNA, asthma sent from [facility] for evaluation of hypoxia. # Acute hypoxic respiratory failure due to HCAP with questionable aspiration PNA presented with hypoxia 87-88 % ,discussed with ID will give him a dose of Vancomycin today , continue IV Zosyn 3.375 gm Q8H, Zithromax .continue Neb treatments, continue Bipap. Pulmonary on the case. Elevate HOB to 30-45 degrees , NPO for now. hold the feeding for now. discontinued IVF for now since ( Cxr looks more wet) RSV negative so far, Flu swab , Cold agglutinins, Urine for legionella pending ,was send to [facility] and mycoplasma prelim. is negative. # Acute Leukocytosis with Bandemia , repeat lab in am. on IV antibiotic Zosyn/ Zithromax and a dose of Vancomycin; care discussed with ID. # Seizure- no active seizure , continue home meds: Lamotrigine 200mg GT BID; Diazepam rectal Gel PRN, Topiramate,Depakoate 375mg GT bid # Hypothyroidism continue Levothyroxine 50 mcg GT # Asthma continue Albuterol Nebs, Solumedrol daily IV as per Pulmonary # DVT Prophylaxis: On Heparin 5000 sq # Code Status: full code for now. Visit type - Emergency Visit Emergency Visit: Yes ED Registration Date: 02/20/18 Care time: The patient presented to the Emergency Department on the above date and was hospitalized for further evaluation of their emergent condition. - New Patient This patient is new to me today: No - Critical Care Critical Care patient: No
[2018-02-21] MEDS ORDERED: VANCOMYCIN 1,000 MG in DEXTROSE 5%-WATER - 250 ML IVPB ONE (20:00)
[2018-02-21] MEDS: SENNOSIDES 8.6MG TABLET (FP) PO SCH (23:10)
[2018-02-22] MEDS: PIPERACILLIN/TAZOB 3.375 GM 3.375 GM in DEXTROSE 5%-WATER - 50 ML IVPB SCH ×3 (02:32→17:03)
[2018-02-22] MEDS: ALBUTEROL SO4 2.5/IPRATROPIUM 0.5 INH SOL 3 ML VIAL.NEB. NEB SCH ×5 (06:00→21:11)
[2018-02-22] MEDS: clonazePAM 0.5 MG TABLET GT SCH ×3 (06:58→21:24)
[2018-02-22] MEDS: LEVOTHYROXINE NA 50 MCG TABLET (FP) GT SCH (06:58)
[2018-02-22] MEDS: GABAPENTIN 250 MG/5 ML ORAL SOLUTION, 470 ML BOTTLE GT SCH ×3 (06:58→21:24)
[2018-02-22] MEDS: MUPIROCIN 2% TOPICAL OINTMENT 22 GM TUBE TP SCH ×4 (06:59→21:26)
[2018-02-22] MEDS: HEPARIN NA (PORCINE) 5,000 UNITS/ML 1ML VIAL SQ SCH ×3 (06:59→21:24)
[2018-02-22 07:41] LABS: BASO % 0.3 % (0-2.0); EOS % 0.1 % (0-4.5); HEMATOCRIT 32.2 % (35.4-49); LYMPH % 24.5 % (8-40); MCH 35.8 pg (25.7-33.7); MEAN CELL VOLUME 105.3 fl (80-96); MEAN PLT VOLUME 8.3 fl (7.5-11.1); NEUT % 71.1 % (42.8-82.8); PLATELET COUNT 116 K/MM3 (134-434); RBC 3.06 M/mm3 (4.00-5.60); RDW 14.8 % (11.9-15.9); WHITE BLOOD COUNT 10.2 K/mm3 (4.0-10.0)
[2018-02-22 08:10] LABS: ALBUMIN 2.5 g/dl (3.4-5.0); ALK PHOS 139 U/L (45-117); ANION GAP 8 (8-16); BILIRUBIN,TOTAL 0.3 mg/dL (0.2-1.0); BLOOD UREA NITROGEN 11 mg/dL (7-18); CALCIUM 9.4 mg/dL (8.5-10.1); CHLORIDE 105 mmol/L (98-107); CO2 28 mmol/L (21-32); CREATININE 0.5 mg/dL (0.7-1.3); GLUCOSE,RANDOM 97 mg/dL (74-106); MAGNESIUM 1.8 mg/dL (1.8-2.4); PHOSPHOROUS 3.8 mg/dL (2.5-4.9); POTASSIUM 4.3 mmol/L (3.5-5.1); SGOT/AST 54 U/L (15-37); SGPT/ALT 48 U/L (12-78); SODIUM 141 mmol/L (136-145); TOT PROT 6.8 g/dl (6.4-8.2)
[2018-02-22] MEDS ORDERED: PIPERACILLIN/TAZOBACTAM 3.375 GM VIAL IVPB ONE ×2 (08:56→16:53)
[2018-02-22] MEDS ORDERED: DEXTROSE 5%-WATER - 50 ML IVPB ONE ×2 (08:56→16:53)
[2018-02-22] MEDS ORDERED: PT OWN MED DRAWER 7, Y5N ONE ×3 (08:56→18:06)
[2018-02-22] MEDS: DIVALPROEX SODIUM 125 MG SPRINKLE CAPS GT SCH ×2 (09:03→21:23)
[2018-02-22] MEDS: TOPIRAMATE 25 MG TABLET (FP) PO SCH ×2 (09:03→21:23)
[2018-02-22] MEDS: FUROSEMIDE 20 MG TABLET (FP) PO SCH (09:03)
[2018-02-22] MEDS: FERROUS SO4 300 MG/5 ML ORAL SOLN UNIT DOSE CUPS GT SCH ×2 (09:03→21:23)
[2018-02-22] MEDS: MULTIVIT-MINERALS ORAL LIQUID GT SCH (09:03)
[2018-02-22] MEDS: lamoTRIgine 100 MG TABLET (FP) GT SCH ×2 (09:03→21:24)
[2018-02-22] MEDS: POLYETHYLENE GLYCOL 3350 255 GM BTL PO SCH (09:04)
[2018-02-22] MEDS: methylPREDNISolone NA SUCC 40 MG/1 ML VIAL IVPUSH SCH (09:08)
[2018-02-22] MEDS: LORATADINE 10 MG TABLET GT SCH (09:08)
--- NOTE | 2018-02-22 10:38 | PN ---
Progress Note (short form) - Note Progress Note: NAD on NIPPV, 50% FiO2. ABG yesterday afternoon improved after adjustments. Intake & Output 02/19/18 02/20/18 02/21/18 02/22/18 23:59 23:59 23:59 23:59 Intake Total 1025 1400 Balance 1025 1400 Weight 123 lb Last Vital Signs Temp Pulse Resp BP Pulse Ox 98.6 F 49 L 20 104/62 96 02/22/18 06:00 02/22/18 06:00 02/22/18 06:00 02/22/18 06:00 02/21/18 21:00 Active Medications Albuterol Sulfate (Ventolin 0.083% Nebulizer Soln -) 1 amp NEB Q4H PRN PRN Reason: SHORT OF BREATH/WHEEZING Albuterol/Ipratropium (Duoneb -) 1 amp NEB Q4HWA [facility] Last Admin: 02/22/18 06:00 Dose: 1 amp Artificial Tears (Artificial Tears) 1 drop OU BID PRN PRN Reason: DRY EYES Clonazepam (Klonopin -) 0.5 mg GT TID [facility] Last Admin: 02/22/18 06:58 Dose: 0.5 mg Diazepam (Diastat Rectal Gel -) 0 mg RC PRN PRN PRN Reason: SEIZURE Divalproex Sodium (Depakote Sprinkle Caps -) 375 mg GT BID [facility] Last Admin: 02/22/18 09:03 Dose: 375 mg Ferrous Sulfate (Feosol) 300 mg GT BID [facility] Last Admin: 02/22/18 09:03 Dose: 300 mg Furosemide (Lasix -) 20 mg PO DAILY [facility] Last Admin: 02/22/18 09:03 Dose: 20 mg Gabapentin (Neurontin Oral Liquid -) 200 mg GT TID [facility] Last Admin: 02/22/18 06:58 Dose: 200 mg Heparin Sodium (Porcine) (Heparin -) 5,000 unit SQ TID [facility] Last Admin: 02/22/18 06:59 Dose: 5,000 unit Piperacillin Sod/Tazobactam (Sod 3.375 gm/ Dextrose) 50 mls @ 100 mls/hr IVPB Q8H-IV [facility] Last Admin: 02/22/18 09:02 Dose: 100 mls/hr Azithromycin 500 mg/ Dextrose 250 mls @ 250 mls/hr IVPB DAILY [facility] Last Admin: 02/21/18 12:11 Dose: 250 mls/hr Lamotrigine (Lamictal -) 200 mg GT BID [facility] Last Admin: 02/22/18 09:03 Dose: 200 mg Levothyroxine Sodium (Synthroid -) 50 mcg GT ACBK [facility] Last Admin: 02/22/18 06:58 Dose: 50 mcg Loratadine (Claritin -) 10 mg GT DAILY [facility] Last Admin: 02/22/18 09:08 Dose: 10 mg Methylprednisolone Sodium Succinate (Solu-Medrol -) 40 mg IVPUSH DAILY [facility] Stop: 02/25/18 10:01 Last Admin: 02/22/18 09:08 Dose: 40 mg Mupirocin (Bactroban 2% Ointment -) 1 applic TP TID [facility] Last Admin: 02/22/18 09:03 Dose: 1 applic Polyethylene Glycol (Miralax (For Bowel Prep) -) 17 gm PO DAILY [facility] Last Admin: 02/22/18 09:04 Dose: 17 gm Scopolamine HBr (Transderm-Scop -) 1 patch TD Q72H [facility] Last Admin: 02/20/18 12:17 Dose: 1 patch Senna (Senna -) 2 tab PO HS [facility] Last Admin: 02/21/18 23:10 Dose: 2 tab Sodium Chloride ([place] Nasal [place] -) 2 spray NS TID PRN PRN Reason: NASAL CONGESTION Topiramate (Topamax -) 25 mg PO BID [facility] Last Admin: 02/22/18 09:03 Dose: 25 mg Constitutional: Yes: NAD on NIPPV Eyes: Yes: Conjunctiva Clear, EOM Intact HENT: Yes: Atraumatic Neck: Yes: Supple, Trachea Midline Cardiovascular: Yes: Regular Rate and Rhythm Respiratory: Yes: Cough, Diminished, On BiPap, Rhonchi. No: Accessory Muscle Use, Stridor, Wheezes ...Clubbing: No Gastrointestinal: Yes: WNL, Normal Bowel Sounds, Soft Renal/: Yes: WNL Breast(s): Yes: WNL Musculoskeletal: Yes: WNL Extremities: Yes: Shortened Edema: No Peripheral Pulses WNL: Yes Integumentary: Yes: WNL Neurological: Yes: Confusion Labs: Laboratory Results - last 24 hr 02/21/18 02/21/18 02/22/18 06:02 14:25 06:10 WBC 10.2 H RBC 3.06 L Hgb 11.0 L Hct 32.2 L MCV 105.3 H MCH 35.8 H MCHC 34.0 RDW 14.8 Plt Count 116 L MPV 8.3 Total Counted 97 Neutrophils % 71.1 Neutrophils % (Manual) 44.3 D Band Neutrophils % 25.8 Lymphocytes % 24.5 D Lymphocytes % (Manual) 15.5 D Monocytes % 4.0 Monocytes % (Manual) 6 Eosinophils % 0.1 Eosinophils % (Manual) 0.0 Basophils % 0.3 Basophils % (Manual) 0.0 Myelocytes % (Man) 0 D Promyelocytes % (Man) 0 Blast Cells % (Manual) 0 Nucleated RBC % 0 Metamyelocytes 7 H D Platelet Estimate Decreased Puncture Site Left radial ABG pH 7.37 ABG pCO2 at Pt Temp 49.0 H ABG pO2 at Pt Temp 67.3 L ABG HCO3 27.6 H ABG O2 Sat (Measured) 94.1 ABG O2 Content 13.9 L ABG Base Excess 2.2 H Jovanni Test Positive O2 Delivery Device Bipap Oxygen Flow Rate 50% Vent Rate 22 Mechanical Rate Bipap Pressure Support Vent 14/6 Sodium Potassium Chloride Carbon Dioxide Anion Gap BUN Creatinine Creat Clearance w eGFR Random Glucose Calcium Phosphorus Magnesium Total Bilirubin AST ALT Alkaline Phosphatase Total Protein Albumin 02/22/18 06:10 WBC RBC Hgb Hct MCV MCH MCHC RDW Plt Count MPV Total Counted Neutrophils % Neutrophils % (Manual) Band Neutrophils % Lymphocytes % Lymphocytes % (Manual) Monocytes % Monocytes % (Manual) Eosinophils % Eosinophils % (Manual) Basophils % Basophils % (Manual) Myelocytes % (Man) Promyelocytes % (Man) Blast Cells % (Manual) Nucleated RBC % Metamyelocytes Platelet Estimate Puncture Site ABG pH ABG pCO2 at Pt Temp ABG pO2 at Pt Temp ABG HCO3 ABG O2 Sat (Measured) ABG O2 Content ABG Base Excess Jovanni Test O2 Delivery Device Oxygen Flow Rate Vent Rate Mechanical Rate Pressure Support Vent Sodium 141 Potassium 4.3 Chloride 105 Carbon Dioxide 28 Anion Gap 8 BUN 11 D Creatinine 0.5 L D Creat Clearance w eGFR > 60 Random Glucose 97 Calcium 9.4 Phosphorus 3.8 D Magnesium 1.8 D Total Bilirubin 0.3 D AST 54 H D ALT 48 Alkaline Phosphatase 139 H D Total Protein 6.8 Albumin 2.5 L Problem List - Problems (1) Acute respiratory acidosis Code(s): E87.2 - ACIDOSIS (2) Hypercapnia Code(s): R06.89 - OTHER ABNORMALITIES OF BREATHING (3) Hypoxia Code(s): R09.02 - HYPOXEMIA (4) Pneumonia Code(s): J18.9 - PNEUMONIA, UNSPECIFIED ORGANISM (5) Acute respiratory failure Code(s): J96.00 - ACUTE RESPIRATORY FAILURE, UNSP W HYPOXIA OR HYPERCAPNIA (6) Functional quadriplegia Code(s): R53.2 - FUNCTIONAL QUADRIPLEGIA (7) Asthma Code(s): J45.909 - UNSPECIFIED ASTHMA, UNCOMPLICATED Qualifiers: Asthma severity: mild intermittent Asthma complication type: uncomplicated Qualified Code(s): J45.20 - Mild intermittent asthma, uncomplicated (8) Cerebral palsy, quadriplegic Code(s): G80.8 - OTHER CEREBRAL PALSY (9) GERD (gastroesophageal reflux disease) Code(s): K21.9 - GASTRO-ESOPHAGEAL REFLUX DISEASE WITHOUT ESOPHAGITIS (10) Hypothyroidism Code(s): E03.9 - HYPOTHYROIDISM, UNSPECIFIED (11) Mental retardation Code(s): F79 - UNSPECIFIED INTELLECTUAL DISABILITIES (12) PEG (percutaneous endoscopic gastrostomy) status Code(s): Z93.1 - GASTROSTOMY STATUS (13) Scoliosis Code(s): M41.9 - SCOLIOSIS, UNSPECIFIED (14) Seizure disorder Code(s): G40.909 - EPILEPSY, UNSP, NOT INTRACTABLE, WITHOUT STATUS EPILEPTICUS Assessment/Plan Maintain NIPPV settings Ensure properly fitting mask ABX per ID Aspiration precautions Follow cultures Daily medrol BD TX Follow CXR in AM Dr Rivas Problem List - Problems (1) Acute respiratory acidosis Code(s): E87.2 - ACIDOSIS (2) Hypercapnia Code(s): R06.89 - OTHER ABNORMALITIES OF BREATHING (3) Hypoxia Code(s): R09.02 - HYPOXEMIA (4) Pneumonia Code(s): J18.9 - PNEUMONIA, UNSPECIFIED ORGANISM (5) Acute respiratory failure Code(s): J96.00 - ACUTE RESPIRATORY FAILURE, UNSP W HYPOXIA OR HYPERCAPNIA (6) Functional quadriplegia Code(s): R53.2 - FUNCTIONAL QUADRIPLEGIA (7) Asthma Code(s): J45.909 - UNSPECIFIED ASTHMA, UNCOMPLICATED Qualifiers: Asthma severity: mild intermittent Asthma complication type: uncomplicated Qualified Code(s): J45.20 - Mild intermittent asthma, uncomplicated (8) Cerebral palsy, quadriplegic Code(s): G80.8 - OTHER CEREBRAL PALSY (9) GERD (gastroesophageal reflux disease) Code(s): K21.9 - GASTRO-ESOPHAGEAL REFLUX DISEASE WITHOUT ESOPHAGITIS (10) Hypothyroidism Code(s): E03.9 - HYPOTHYROIDISM, UNSPECIFIED (11) Mental retardation Code(s): F79 - UNSPECIFIED INTELLECTUAL DISABILITIES (12) PEG (percutaneous endoscopic gastrostomy) status Code(s): Z93.1 - GASTROSTOMY STATUS (13) Scoliosis Code(s): M41.9 - SCOLIOSIS, UNSPECIFIED (14) Seizure disorder Code(s): G40.909 - EPILEPSY, UNSP, NOT INTRACTABLE, WITHOUT STATUS EPILEPTICUS
[2018-02-22] MEDS: AZITHROMYCIN IVPB 500 MG in DEXTROSE 5%-WATER - 250 ML IVPB SCH (10:45)
--- NOTE | 2018-02-22 17:09 | PN ---
Teaching Attending Note Name of Resident: Brady Mendez ATTENDING PHYSICIAN STATEMENT I saw and evaluated the patient. I reviewed the resident's note and discussed the case with the resident. I agree with the resident's findings and plan as documented. SUBJECTIVE: OBJECTIVE: Vital Signs Period Temp Pulse Resp BP Sys/Celestin Pulse Ox Last 24 Hr 96.5 F-98.6 F 43-63 20-20 104-154/48-63 96-100 Laboratory Results - last 24 hr 02/22/18 02/22/18 06:10 06:10 WBC 10.2 H RBC 3.06 L Hgb 11.0 L Hct 32.2 L MCV 105.3 H MCH 35.8 H MCHC 34.0 RDW 14.8 Plt Count 116 L MPV 8.3 Neutrophils % 71.1 Lymphocytes % 24.5 D Monocytes % 4.0 Eosinophils % 0.1 Basophils % 0.3 Sodium 141 Potassium 4.3 Chloride 105 Carbon Dioxide 28 Anion Gap 8 BUN 11 D Creatinine 0.5 L D Creat Clearance w eGFR > 60 Random Glucose 97 Calcium 9.4 Phosphorus 3.8 D Magnesium 1.8 D Total Bilirubin 0.3 D AST 54 H D ALT 48 Alkaline Phosphatase 139 H D Total Protein 6.8 Albumin 2.5 L Current Medications Generic Name Dose Route Start Last Admin Trade Name Freq PRN Reason Stop Dose Admin Albuterol Sulfate 1 amp 02/20/18 08:14 Ventolin 0.083% Nebulizer Soln - NEB Q4H PRN SHORT OF BREATH/WHEEZING Albuterol/Ipratropium 1 amp 02/20/18 10:00 02/22/18 15:11 Duoneb - NEB 1 amp Q4HWA [facility]ILL Administration Artificial Tears 1 drop 02/20/18 08:21 Artificial Tears OU BID PRN DRY EYES Clonazepam 0.5 mg 02/20/18 14:00 02/22/18 14:09 Klonopin - GT 0.5 mg TID GILL Administration Diazepam 0 mg 02/20/18 08:21 Diastat Rectal Gel - RC PRN PRN SEIZURE Divalproex Sodium 375 mg 02/20/18 12:15 02/22/18 09:03 Depakote Sprinkle Caps - GT 375 mg BID GILL Administration Ferrous Sulfate 300 mg 02/20/18 10:00 02/22/18 09:03 Feosol GT 300 mg BID GILL Administration Furosemide 20 mg 02/20/18 10:00 02/22/18 09:03 Lasix - PO 20 mg DAILY GILL Administration Gabapentin 200 mg 02/20/18 14:00 02/22/18 14:09 Neurontin Oral Liquid - GT 200 mg TID GILL Administration Heparin Sodium (Porcine) 5,000 unit 02/20/18 14:00 02/22/18 14:09 Heparin - SQ 5,000 unit TID G[facility] Administration Piperacillin Sod/Tazobactam 50 mls @ 100 mls/hr 02/20/18 10:30 02/22/18 09:02 Sod 3.375 gm/ Dextrose IVPB 100 mls/hr Q8H-IV [facility] Administration Azithromycin 500 mg/ Dextrose 250 mls @ 250 mls/hr 02/21/18 10:00 02/22/18 10 :45 IVPB 250 mls/hr DAILY [facility] Administration Lamotrigine 200 mg 02/20/18 12:15 02/22/18 09:03 Lamictal - GT 200 mg BID GILL Administration Levothyroxine Sodium 50 mcg 02/20/18 10:00 02/22/18 06:58 Synthroid - GT 50 mcg ACBK [facility] Administration Loratadine 10 mg 02/20/18 10:00 02/22/18 09:08 Claritin - GT 10 mg DAILY [facility] Administration Methylprednisolone Sodium Succinate 40 mg 02/21/18 11:15 02/22/18 09:08 Solu-Medrol - IVPUSH 02/25/18 10:01 40 mg DAILY [facility] Administration Mupirocin 1 applic 02/20/18 14:00 02/22/18 14:11 Bactroban 2% Ointment - TP 1 applic TID [facility] Administration Polyethylene Glycol 17 gm 02/20/18 10:00 02/22/18 09:04 Miralax (For Bowel Prep) - PO 17 gm DAILY [facility] Administration Scopolamine HBr 1 patch 02/20/18 10:00 02/20/18 12:17 Transderm-Scop - TD 1 patch Q72H [facility] Administration Senna 2 tab 02/20/18 22:00 02/21/18 23:10 Senna - PO 2 tab HS [facility] Administration Sodium Chloride 2 spray 02/20/18 08:21 [place] Nasal [place] - NS TID PRN NASAL CONGESTION Topiramate 25 mg 02/20/18 10:00 02/22/18 09:03 Topamax - PO 25 mg BID GILL Administration ASSESSMENT AND PLAN: This is a 47 year old man with a history of cerebral palsy, quadriplegia, profound mental retardation, hypothyroidism, seizure disorder, asthma, chronic hypoxic respiratory failure, GERD, recurrent pneumonia, Katherine fundoplication, PEG who was sent to the ED from [facility] for evaluation of hypoxia. 1. Acute on chronic hypoxic respiratory failure secondary to healthcare- associated pneumonia, possible aspiration pneumonia - Continue Zosyn, Zithromax, SoluMedrol - Continue BiPAP, DuoNeb, albuterol nebs as needed - Urine Pneumococcus Ag negative - Urine Legionella Ag pending - RSV Ag negative - Influenza A and B Ag negative 2. Cerebral palsy with profound mental retardation and quadriplegia 3. Seizure disorder - Continue Depakote, Lamictal, Neurontin, Topamax, Klonopin, Diastat as needed 4. Hypothyroidism - Continue Synthroid 5. Asthma 6. GERD 7. Nutrition - PEG feedings held secondary to possible aspiration
--- NOTE | 2018-02-22 18:11 | PN ---
Physical Exam: SUBJECTIVE: Patient seen and examined at bedside. Patient appears comfortable. On BiPap. no events overnight. OBJECTIVE: Vital Signs Period Temp Pulse Resp BP Sys/Celestin Pulse Ox Last 24 Hr 97.2 F-98.6 F 43-49 20-20 104-154/48-62 96-100 GENERAL: The patient is lying in bed, responsive to stimuli. pt at baseline. HEAD: Normal with no signs of trauma. NECK: Trachea midline, full range of motion, supple. LUNGS: Breath sounds equal, coarse breath sounds heard b/l. no accessory muscle use. HEART: Regular rate and rhythm, S1, S2 without murmur, rub or gallop. ABDOMEN: Soft, nontender, nondistended, normoactive bowel sounds, no guarding, no rebound, no hepatosplenomegaly, no masses. EXTREMITIES: 2+ pulses, warm, well-perfused, no edema. NEUROLOGICAL: unable to obtain due to patient's clinical status SKIN: Warm, dry, normal turgor, no rashes or lesions noted Laboratory Results - last 24 hr 02/22/18 02/22/18 06:10 06:10 WBC 10.2 H RBC 3.06 L Hgb 11.0 L Hct 32.2 L MCV 105.3 H MCH 35.8 H MCHC 34.0 RDW 14.8 Plt Count 116 L MPV 8.3 Neutrophils % 71.1 Lymphocytes % 24.5 D Monocytes % 4.0 Eosinophils % 0.1 Basophils % 0.3 Sodium 141 Potassium 4.3 Chloride 105 Carbon Dioxide 28 Anion Gap 8 BUN 11 D Creatinine 0.5 L D Creat Clearance w eGFR > 60 Random Glucose 97 Calcium 9.4 Phosphorus 3.8 D Magnesium 1.8 D Total Bilirubin 0.3 D AST 54 H D ALT 48 Alkaline Phosphatase 139 H D Total Protein 6.8 Albumin 2.5 L Active Medications Generic Name Dose Route Start Last Admin Trade Name Freq PRN Reason Stop Dose Admin Albuterol Sulfate 1 amp 02/20/18 08:14 Ventolin 0.083% Nebulizer Soln - NEB Q4H PRN SHORT OF BREATH/WHEEZING Albuterol/Ipratropium 1 amp 02/20/18 10:00 02/22/18 15:11 Duoneb - NEB 1 amp Q4HWA GILL Administration Artificial Tears 1 drop 02/20/18 08:21 Artificial Tears OU BID PRN DRY EYES Clonazepam 0.5 mg 02/20/18 14:00 02/22/18 14:09 Klonopin - GT 0.5 mg TID GILL Administration Diazepam 0 mg 02/20/18 08:21 Diastat Rectal Gel - RC PRN PRN SEIZURE Divalproex Sodium 375 mg 02/20/18 12:15 02/22/18 09:03 Depakote Sprinkle Caps - GT 375 mg BID GILL Administration Ferrous Sulfate 300 mg 02/20/18 10:00 02/22/18 09:03 Feosol GT 300 mg BID GILL Administration Furosemide 20 mg 02/20/18 10:00 02/22/18 09:03 Lasix - PO 20 mg DAILY GILL Administration Gabapentin 200 mg 02/20/18 14:00 02/22/18 14:09 Neurontin Oral Liquid - GT 200 mg TID GILL Administration Heparin Sodium (Porcine) 5,000 unit 02/20/18 14:00 02/22/18 14:09 Heparin - SQ 5,000 unit TID GILL Administration Piperacillin Sod/Tazobactam 50 mls @ 100 mls/hr 02/20/18 10:30 02/22/18 17:03 Sod 3.375 gm/ Dextrose IVPB 100 mls/hr Q8H-IV GILL Administration Azithromycin 500 mg/ Dextrose 250 mls @ 250 mls/hr 02/21/18 10:00 02/22/18 10 :45 IVPB 250 mls/hr DAILY [facility] Administration Lamotrigine 200 mg 02/20/18 12:15 02/22/18 09:03 Lamictal - GT 200 mg BID GILL Administration Levothyroxine Sodium 50 mcg 02/20/18 10:00 02/22/18 06:58 Synthroid - GT 50 mcg ACBK GILL Administration Loratadine 10 mg 02/20/18 10:00 02/22/18 09:08 Claritin - GT 10 mg DAILY GILL Administration Methylprednisolone Sodium Succinate 40 mg 02/21/18 11:15 02/22/18 09:08 Solu-Medrol - IVPUSH 02/25/18 10:01 40 mg DAILY GILL Administration Mupirocin 1 applic 02/20/18 14:00 02/22/18 14:11 Bactroban 2% Ointment - TP 1 applic TID GILL Administration Polyethylene Glycol 17 gm 02/20/18 10:00 02/22/18 09:04 Miralax (For Bowel Prep) - PO 17 gm DAILY GILL Administration Scopolamine HBr 1 patch 02/20/18 10:00 02/20/18 12:17 Transderm-Scop - TD 1 patch Q72H [facility] Administration Senna 2 tab 02/20/18 22:00 02/21/18 23:10 Senna - PO 2 tab HS GILL Administration Sodium Chloride 2 spray 02/20/18 08:21 [place] Nasal [place] - NS TID PRN NASAL CONGESTION Topiramate 25 mg 02/20/18 10:00 02/22/18 09:03 Topamax - PO 25 mg BID GILL Administration ASSESSMENT/PLAN: This is a 47 year old male with significant past medical history of CP, seizure , recurrent PNA admitted for the treatment of pneumonia. # Acute hypoxic respiratory failure 2/2 HCAP/ Aspiration PNA -ID onboard -IV Zosyn 3.375 gm Q8H -IV Azithromycin 500mg Daily -c/w bipap -Nebs standing and PRN -D5-1/2 NS @ 75 mls/hr -aspiration precautions -Chest PT, pulmonary toilet #h/o epilepsy- controlled -c/w home Lamotrigine 200mg GT BID -c/w home Diazepam rectal Gel PRN -c/w home Topiramate -c/w home Depakoate 375mg GT bid #Hypothyroidism -c/w home Levothyroxine 50 mcg GT #Asthma -c/w nebs PRN #Dry eyes -c/w home Artificial tears OU BID #FEN -D5-1/2 NS@ 75 -monitor lytes -NPO except meds #Prophylaxis -Hep SQ 5ku TID #Dispo -admit inpatient med surg Visit type - Emergency Visit Emergency Visit: Yes ED Registration Date: 02/20/18 Care time: The patient presented to the Emergency Department on the above date and was hospitalized for further evaluation of their emergent condition. - New Patient This patient is new to me today: Yes Date on this admission: 02/22/18 - Critical Care Critical Care patient: No
[2018-02-22] MEDS: SENNOSIDES 8.6MG TABLET (FP) PO SCH (21:24)
[2018-02-23] MEDS ORDERED: DEXTROSE 5%-WATER - 50 ML IVPB ONE ×4 (00:21→22:56)
[2018-02-23] MEDS ORDERED: PIPERACILLIN/TAZOBACTAM 3.375 GM VIAL IVPB ONE ×4 (00:21→22:56)
[2018-02-23] MEDS: PIPERACILLIN/TAZOB 3.375 GM 3.375 GM in DEXTROSE 5%-WATER - 50 ML IVPB SCH ×3 (01:22→17:44)
[2018-02-23] MEDS ORDERED: PT OWN MED DRAWER 7, Y5N ONE ×2 (01:27→11:43)
[2018-02-23] MEDS: clonazePAM 0.5 MG TABLET GT SCH ×3 (05:50→22:38)
[2018-02-23] MEDS: GABAPENTIN 250 MG/5 ML ORAL SOLUTION, 470 ML BOTTLE GT SCH ×3 (05:50→22:43)
[2018-02-23] MEDS: HEPARIN NA (PORCINE) 5,000 UNITS/ML 1ML VIAL SQ SCH ×3 (05:51→22:37)
[2018-02-23 05:52] LABS: ARTERIAL BLD GAS O2 SATURATION 98.1 % (90-98.9); ARTERIAL BLOOD GAS BASE EXCESS 5.1 meq/l (-2-2); ARTERIAL BLOOD GAS pH 7.34 (7.35-7.45)
[2018-02-23] MEDS: MUPIROCIN 2% TOPICAL OINTMENT 22 GM TUBE TP SCH ×4 (05:53→22:37)
[2018-02-23 05:57] LABS: ALLENS TEST POSITIVE
[2018-02-23 05:59] LABS: ARTERIAL BLOOD GAS PCO2 60.3 mmHg (35-45)
[2018-02-23] MEDS: LEVOTHYROXINE NA 50 MCG TABLET (FP) GT SCH (06:10)
[2018-02-23] MEDS: ALBUTEROL SO4 2.5/IPRATROPIUM 0.5 INH SOL 3 ML VIAL.NEB. NEB SCH ×8 (06:11→21:46)
[2018-02-23 08:08] LABS: HEMATOCRIT 34.1 % (35.4-49); HEMOGLOBIN 11.6 GM/dL (11.7-16.9); MCH 35.6 pg (25.7-33.7); MCHC 33.9 g/dl (32.0-35.9); MEAN PLT VOLUME 8.9 fl (7.5-11.1); PLATELET COUNT 117 K/MM3 (134-434); RBC 3.25 M/mm3 (4.00-5.60); RDW 14.9 % (11.9-15.9); WHITE BLOOD COUNT 7.4 K/mm3 (4.0-10.0)
[2018-02-23] MEDS ORDERED: diazePAM ACUDIAL 5-7.5-10 MG 1 EACH KIT RC PRN (08:08)
[2018-02-23] MEDS ORDERED: MAGNESIUM OXIDE 400 MG TABLET (FP) PO ONE ×2 (08:10→13:45)
--- NOTE | 2018-02-23 09:54 | PN ---
Progress Note, Physician Chief Complaint: ID Erich Azithromycin - Current Medication List Current Medications: Active Medications Albuterol Sulfate (Ventolin 0.083% Nebulizer Soln -) 1 amp NEB Q4H PRN PRN Reason: SHORT OF BREATH/WHEEZING Albuterol/Ipratropium (Duoneb -) 1 amp NEB Q4HWA [facility] Last Admin: 02/23/18 09:33 Dose: 1 amp Artificial Tears (Artificial Tears) 1 drop OU BID PRN PRN Reason: DRY EYES Clonazepam (Klonopin -) 0.5 mg GT TID [facility] Last Admin: 02/23/18 05:50 Dose: 0.5 mg Diazepam (Diastat Rectal Gel -) 10 mg RC PRN PRN PRN Reason: SEIZURE Divalproex Sodium (Depakote Sprinkle Caps -) 375 mg GT BID [facility] Last Admin: 02/22/18 21:23 Dose: 375 mg Ferrous Sulfate (Feosol) 300 mg GT BID [facility] Last Admin: 02/22/18 21:23 Dose: 300 mg Furosemide (Lasix -) 20 mg PO DAILY [facility] Last Admin: 02/22/18 09:03 Dose: 20 mg Gabapentin (Neurontin Oral Liquid -) 200 mg GT TID [facility] Last Admin: 02/23/18 05:50 Dose: 200 mg Heparin Sodium (Porcine) (Heparin -) 5,000 unit SQ TID [facility] Last Admin: 02/23/18 05:51 Dose: 5,000 unit Piperacillin Sod/Tazobactam (Sod 3.375 gm/ Dextrose) 50 mls @ 100 mls/hr IVPB Q8H-IV [facility] Last Admin: 02/23/18 01:22 Dose: 100 mls/hr Azithromycin 500 mg/ Dextrose 250 mls @ 250 mls/hr IVPB DAILY [facility] Last Admin: 02/22/18 10:45 Dose: 250 mls/hr Lamotrigine (Lamictal -) 200 mg GT BID [facility] Last Admin: 02/22/18 21:24 Dose: 200 mg Levothyroxine Sodium (Synthroid -) 50 mcg GT ACBK [facility] Last Admin: 02/23/18 06:10 Dose: 50 mcg Loratadine (Claritin -) 10 mg GT DAILY [facility] Last Admin: 02/22/18 09:08 Dose: 10 mg Methylprednisolone Sodium Succinate (Solu-Medrol -) 40 mg IVPUSH DAILY [facility] Stop: 02/25/18 10:01 Last Admin: 02/22/18 09:08 Dose: 40 mg Mupirocin (Bactroban 2% Ointment -) 1 applic TP TID [facility] Last Admin: 02/23/18 08:04 Dose: Not Given Polyethylene Glycol (Miralax (For Bowel Prep) -) 17 gm PO DAILY [facility] Last Admin: 02/22/18 09:04 Dose: 17 gm Scopolamine HBr (Transderm-Scop -) 1 patch TD Q72H [facility] Last Admin: 02/20/18 12:17 Dose: 1 patch Senna (Senna -) 2 tab PO HS [facility] Last Admin: 02/22/18 21:24 Dose: 2 tab Sodium Chloride ([place] Nasal [place] -) 2 spray NS TID PRN PRN Reason: NASAL CONGESTION Topiramate (Topamax -) 25 mg PO BID [facility] Last Admin: 02/22/18 21:23 Dose: 25 mg - Objective Vital Signs: Vital Signs Temperature 91.9 F L 02/23/18 06:34 Pulse Rate 50 L 02/23/18 06:34 Respiratory Rate 18 02/23/18 06:34 Blood Pressure 114/71 02/23/18 06:34 O2 Sat by Pulse Oximetry (%) 96 02/23/18 06:10 Constitutional: Yes: Mild Distress Cardiovascular: Yes: S1, S2 Respiratory: Yes: WNL, Regular, CTA Bilaterally, Diminished, Rhonchi Gastrointestinal: Yes: Soft. No: Tenderness Edema: No Labs: CBC, BMP 02/23/18 06:30 02/22/18 06:10 Assessment/Plan Microbiology 02/20/18 14:15 Nasopharyngeal Swab Respiratory Syncytial Virus Ag - Final 02/20/18 12:00 Urine For Antigen Detection Streptococcus pneumoniae Antigen (M - Final 02/20/18 08:12 Urine - Urine - Catheterized Urine Culture - Final NO GROWTH OBTAINED 02/20/18 08:12 Nasopharyngeal Swab Influenza Types A,B Antigen (DINA) - Final 02/20/18 08:12 Nasopharyngeal Swab - Final 02/20/18 12:00 Urine For Antigen Detection Legionella Antigen - Preliminary 02/20/18 04:50 Blood - Peripheral Venous Blood Culture - Preliminary NO GROWTH OBTAINED AFTER 72 HOURS, INCUBATION TO CONTINUE FOR 2 DAYS. 02/20/18 04:50 Blood - Peripheral Venous Blood Culture - Preliminary NO GROWTH OBTAINED AFTER 72 HOURS, INCUBATION TO CONTINUE FOR 2 DAYS. Laboratory Tests 02/23/18 02/23/18 05:38 06:30 WBC 7.4 Hgb 11.6 L Hct 34.1 L Plt Count 117 L ABG pH 7.34 L ABG pCO2 at Pt Temp 60.3 H* D ABG pO2 at Pt Temp 108.0 H D Assessment Respiratory failure Pneumonia Cerebral palsy Hypothermia Plan Continue current antibiotic as ordered total 7 days Khadijah GUAN
[2018-02-23] MEDS: DIVALPROEX SODIUM 125 MG SPRINKLE CAPS GT SCH ×2 (10:40→22:37)
[2018-02-23] MEDS: lamoTRIgine 100 MG TABLET (FP) GT SCH ×2 (10:40→22:36)
[2018-02-23] MEDS: SCOPOLAMINE HYDROBROMIDE 1 PATCH PATCH.TD72 TD SCH (10:43)
--- NOTE | 2018-02-23 10:54 | PN ---
Progress Note (short form) - Note Progress Note: PULMONARY Awake, alert on BiPAP. Hypothermic. Last Vital Signs Temp Pulse Resp BP Pulse Ox 91.9 F L 50 L 18 114/71 96 02/23/18 06:34 02/23/18 06:34 02/23/18 06:34 02/23/18 06:34 02/23/18 06:10 Intake & Output 02/20/18 02/21/18 02/22/18 02/23/18 23:59 23:59 23:59 23:59 Intake Total 1025 1400 50 Balance 1025 1400 50 Weight 55.792 kg Gen: on BiPAP, mildly tachypneic Heart: RRR Lung: decreased breath sounds at the bases Abd: soft, nontender Ext: no edema CBC, BMP 02/23/18 06:30 02/22/18 06:10 Active Medications Albuterol Sulfate (Ventolin 0.083% Nebulizer Soln -) 1 amp NEB Q4H PRN PRN Reason: SHORT OF BREATH/WHEEZING Albuterol/Ipratropium (Duoneb -) 1 amp NEB Q4HWA [facility] Last Admin: 02/23/18 09:33 Dose: 1 amp Artificial Tears (Artificial Tears) 1 drop OU BID PRN PRN Reason: DRY EYES Clonazepam (Klonopin -) 0.5 mg GT TID [facility] Last Admin: 02/23/18 05:50 Dose: 0.5 mg Diazepam (Diastat Rectal Gel -) 10 mg RC PRN PRN PRN Reason: SEIZURE Divalproex Sodium (Depakote Sprinkle Caps -) 375 mg GT BID [facility] Last Admin: 02/22/18 21:23 Dose: 375 mg Ferrous Sulfate (Feosol) 300 mg GT BID [facility] Last Admin: 02/22/18 21:23 Dose: 300 mg Furosemide (Lasix -) 20 mg PO DAILY [facility] Last Admin: 02/22/18 09:03 Dose: 20 mg Gabapentin (Neurontin Oral Liquid -) 200 mg GT TID [facility] Last Admin: 02/23/18 05:50 Dose: 200 mg Heparin Sodium (Porcine) (Heparin -) 5,000 unit SQ TID [facility] Last Admin: 02/23/18 05:51 Dose: 5,000 unit Piperacillin Sod/Tazobactam (Sod 3.375 gm/ Dextrose) 50 mls @ 100 mls/hr IVPB Q8H-IV [facility] Last Admin: 02/23/18 01:22 Dose: 100 mls/hr Azithromycin 500 mg/ Dextrose 250 mls @ 250 mls/hr IVPB DAILY [facility] Last Admin: 02/22/18 10:45 Dose: 250 mls/hr Lamotrigine (Lamictal -) 200 mg GT BID [facility] Last Admin: 02/22/18 21:24 Dose: 200 mg Levothyroxine Sodium (Synthroid -) 50 mcg GT ACBK [facility] Last Admin: 02/23/18 06:10 Dose: 50 mcg Loratadine (Claritin -) 10 mg GT DAILY [facility] Last Admin: 02/22/18 09:08 Dose: 10 mg Methylprednisolone Sodium Succinate (Solu-Medrol -) 40 mg IVPUSH DAILY [facility] Stop: 02/25/18 10:01 Last Admin: 02/22/18 09:08 Dose: 40 mg Mupirocin (Bactroban 2% Ointment -) 1 applic TP TID [facility] Last Admin: 02/23/18 08:04 Dose: Not Given Polyethylene Glycol (Miralax (For Bowel Prep) -) 17 gm PO DAILY [facility] Last Admin: 02/22/18 09:04 Dose: 17 gm Scopolamine HBr (Transderm-Scop -) 1 patch TD Q72H [facility] Last Admin: 02/20/18 12:17 Dose: 1 patch Senna (Senna -) 2 tab PO HS [facility] Last Admin: 02/22/18 21:24 Dose: 2 tab Sodium Chloride ([place] Nasal [place] -) 2 spray NS TID PRN PRN Reason: NASAL CONGESTION Topiramate (Topamax -) 25 mg PO BID [facility] Last Admin: 02/22/18 21:23 Dose: 25 mg A/P Acute Hypoxic and Hypercapneic Respiratory Failure Pneumonia likely Aspiration Cerebral Palsy Seizure Disorder Mental Retardation - continue antibiotics - aspiration precautions - medrol taper - inhaled bronchodilators - BiPAP as needed - O2 to keep SpO2 >90% - DVT prophylaxis
[2018-02-23] MEDS: TOPIRAMATE 25 MG TABLET (FP) PO SCH ×2 (11:24→22:34)
[2018-02-23] MEDS: FERROUS SO4 300 MG/5 ML ORAL SOLN UNIT DOSE CUPS GT SCH ×2 (11:24→22:38)
[2018-02-23] MEDS: LORATADINE 10 MG TABLET GT SCH (11:24)
[2018-02-23] MEDS: FUROSEMIDE 20 MG TABLET (FP) PO SCH (11:24)
[2018-02-23] MEDS: POLYETHYLENE GLYCOL 3350 255 GM BTL PO SCH (11:25)
[2018-02-23] MEDS: methylPREDNISolone NA SUCC 40 MG/1 ML VIAL IVPUSH SCH (11:25)
[2018-02-23] MEDS: AZITHROMYCIN IVPB 500 MG in DEXTROSE 5%-WATER - 250 ML IVPB SCH (11:46)
[2018-02-23] MEDS: MULTIVIT-MINERALS ORAL LIQUID GT SCH (13:41)
--- NOTE | 2018-02-23 17:00 | PN ---
Physical Exam: SUBJECTIVE: Patient seen and examined at bedside. Patient w/ episode of hypothermia this AM requiring cristian hugger. No other events. OBJECTIVE: Vital Signs Period Temp Pulse Resp BP Sys/Celestin Pulse Ox Last 24 Hr 91.9 F-97.8 F 48-90 18-18 91-136/56-71 96-100 GENERAL: The patient is awake, alert, in no acute distress. Patient nonverbal at baseline. HEAD: Normal with no signs of trauma. NECK: Trachea midline, full range of motion, supple. LUNGS: Breath sounds equal, coarse breath sounds b/l, no accessory muscle use. HEART: Regular rate and rhythm, S1, S2 without murmur, rub or gallop. ABDOMEN: Soft, nontender, nondistended, normoactive bowel sounds, no guarding, no rebound, no hepatosplenomegaly, no masses. EXTREMITIES: 2+ pulses, warm, well-perfused, no edema. NEUROLOGICAL: unable to obtain SKIN: Warm, dry, normal turgor, no rashes or lesions noted Laboratory Results - last 24 hr 02/23/18 02/23/18 05:38 06:30 WBC 7.4 RBC 3.25 L Hgb 11.6 L Hct 34.1 L MCV 105.0 H MCH 35.6 H MCHC 33.9 RDW 14.9 Plt Count 117 L MPV 8.9 Anticoagulation Therapy No Result Required. Puncture Site Right radial ABG pH 7.34 L ABG pCO2 at Pt Temp 60.3 H* D ABG pO2 at Pt Temp 108.0 H D ABG HCO3 31.7 H ABG O2 Sat (Measured) 98.1 ABG O2 Content 14.7 L ABG Base Excess 5.1 H Jovanni Test Positive O2 Delivery Device Bipap Oxygen Flow Rate 50% Vent Mode No Result Required. Vent Rate 22 Mechanical Rate No Result Required. Pressure Support Vent 14 Active Medications Generic Name Dose Route Start Last Admin Trade Name Freq PRN Reason Stop Dose Admin Albuterol Sulfate 1 amp 02/20/18 08:14 Ventolin 0.083% Nebulizer Soln - NEB Q4H PRN SHORT OF BREATH/WHEEZING Albuterol/Ipratropium 1 amp 02/20/18 10:00 02/23/18 13:27 Duoneb - NEB 1 amp Q4HWA [facility]ILL Administration Artificial Tears 1 drop 02/20/18 08:21 Artificial Tears OU BID PRN DRY EYES Clonazepam 0.5 mg 02/20/18 14:00 02/23/18 13:40 Klonopin - GT 0.5 mg TID GILL Administration Diazepam 10 mg 02/23/18 08:08 Diastat Rectal Gel - RC PRN PRN SEIZURE Divalproex Sodium 375 mg 02/20/18 12:15 02/23/18 10:40 Depakote Sprinkle Caps - GT 375 mg BID GILL Administration Ferrous Sulfate 300 mg 02/20/18 10:00 02/23/18 11:24 Feosol GT 300 mg BID GILL Administration Furosemide 20 mg 02/20/18 10:00 02/23/18 11:24 Lasix - PO 20 mg DAILY [facility]ILL Administration Gabapentin 200 mg 02/20/18 14:00 02/23/18 13:44 Neurontin Oral Liquid - GT Not Given TID [facility]ILL Heparin Sodium (Porcine) 5,000 unit 02/20/18 14:00 02/23/18 13:41 Heparin - SQ 5,000 unit TID [facility] Administration Piperacillin Sod/Tazobactam 50 mls @ 100 mls/hr 02/20/18 10:30 02/23/18 10:24 Sod 3.375 gm/ Dextrose IVPB 100 mls/hr Q8H-IV [facility] Administration Azithromycin 500 mg/ Dextrose 250 mls @ 250 mls/hr 02/21/18 10:00 02/23/18 11 :46 IVPB 250 mls/hr DAILY [facility] Administration Lamotrigine 200 mg 02/20/18 12:15 02/23/18 10:40 Lamictal - GT 200 mg BID G[facility] Administration Levothyroxine Sodium 50 mcg 02/20/18 10:00 02/23/18 06:10 Synthroid - GT 50 mcg ACBK [facility] Administration Loratadine 10 mg 02/20/18 10:00 02/23/18 11:24 Claritin - GT 10 mg DAILY [facility] Administration Methylprednisolone Sodium Succinate 40 mg 02/21/18 11:15 02/23/18 11:25 Solu-Medrol - IVPUSH 02/25/18 10:01 40 mg DAILY [facility] Administration Mupirocin 1 applic 02/20/18 14:00 02/23/18 13:43 Bactroban 2% Ointment - TP 1 applic TID [facility]ILL Administration Polyethylene Glycol 17 gm 02/20/18 10:00 02/23/18 11:25 Miralax (For Bowel Prep) - PO 17 gm DAILY [facility] Administration Scopolamine HBr 1 patch 02/20/18 10:00 02/23/18 10:43 Transderm-Scop - TD 1 patch Q72H [facility] Administration Senna 2 tab 02/20/18 22:00 02/22/18 21:24 Senna - PO 2 tab HS [facility] Administration Sodium Chloride 2 spray 02/20/18 08:21 [place] Nasal [place] - NS TID PRN NASAL CONGESTION Topiramate 25 mg 02/20/18 10:00 02/23/18 11:24 Topamax - PO 25 mg BID [facility] Administration ASSESSMENT/PLAN: This is a 47 year old male with significant past medical history of CP, seizure , recurrent PNA admitted for the treatment of pneumonia. # Acute hypoxic respiratory failure 2/2 HCAP/ Aspiration PNA -ID onboard -IV Zosyn 3.375 gm Q8H -IV Azithromycin 500mg Daily -bipap d/c today per pulm -Nebs standing and PRN -IVF d/c -aspiration precautions -Chest PT, pulmonary toilet #h/o epilepsy- controlled -c/w home Lamotrigine 200mg GT BID -c/w home Diazepam rectal Gel PRN -c/w home Topiramate -c/w home Depakoate 375mg GT bid #Hypothyroidism -c/w home Levothyroxine 50 mcg GT #Asthma -c/w nebs PRN #Dry eyes -c/w home Artificial tears OU BID #FEN -no fluids indicated -monitor lytes -NPO except meds #Prophylaxis -Hep SQ 5ku TID #Dispo -admit inpatient med surg Visit type - Emergency Visit Emergency Visit: Yes ED Registration Date: 02/20/18 Care time: The patient presented to the Emergency Department on the above date and was hospitalized for further evaluation of their emergent condition. - New Patient This patient is new to me today: No - Critical Care Critical Care patient: No
--- NOTE | 2018-02-23 18:44 | PN ---
Teaching Attending Note Name of Resident: Brady Mendez ATTENDING PHYSICIAN STATEMENT I saw and evaluated the patient. I reviewed the resident's note and discussed the case with the resident. I agree with the resident's findings and plan as documented. SUBJECTIVE: Patient is awake, appears comfortable on BiPAP. OBJECTIVE: Vital Signs Period Temp Pulse Resp BP Sys/Celestin Pulse Ox Last 24 Hr 91.9 F-97.8 F 48-90 18-18 91-136/56-71 96-96 HEART: S1S2, RRR LUNGS: Coarse BS, scattered rhonchi ABDOMEN: Soft, non-distended, normal BS EXTREMITIES: No edema Laboratory Results - last 24 hr 02/23/18 02/23/18 05:38 06:30 WBC 7.4 RBC 3.25 L Hgb 11.6 L Hct 34.1 L MCV 105.0 H MCH 35.6 H MCHC 33.9 RDW 14.9 Plt Count 117 L MPV 8.9 Anticoagulation Therapy No Result Required. Puncture Site Right radial ABG pH 7.34 L ABG pCO2 at Pt Temp 60.3 H* D ABG pO2 at Pt Temp 108.0 H D ABG HCO3 31.7 H ABG O2 Sat (Measured) 98.1 ABG O2 Content 14.7 L ABG Base Excess 5.1 H Jovanni Test Positive O2 Delivery Device Bipap Oxygen Flow Rate 50% Vent Mode No Result Required. Vent Rate 22 Mechanical Rate No Result Required. Pressure Support Vent 14 Current Medications Generic Name Dose Route Start Last Admin Trade Name Freq PRN Reason Stop Dose Admin Albuterol Sulfate 1 amp 02/20/18 08:14 Ventolin 0.083% Nebulizer Soln - NEB Q4H PRN SHORT OF BREATH/WHEEZING Albuterol/Ipratropium 1 amp 02/20/18 10:00 02/23/18 13:27 Duoneb - NEB 1 amp Q4HWA [facility] Administration Artificial Tears 1 drop 02/20/18 08:21 Artificial Tears OU BID PRN DRY EYES Clonazepam 0.5 mg 02/20/18 14:00 02/23/18 13:40 Klonopin - GT 0.5 mg TID [facility] Administration Diazepam 10 mg 02/23/18 08:08 Diastat Rectal Gel - RC PRN PRN SEIZURE Divalproex Sodium 375 mg 02/20/18 12:15 02/23/18 10:40 Depakote Sprinkle Caps - GT 375 mg BID [facility] Administration Ferrous Sulfate 300 mg 02/20/18 10:00 02/23/18 11:24 Feosol GT 300 mg BID [facility] Administration Furosemide 20 mg 02/20/18 10:00 02/23/18 11:24 Lasix - PO 20 mg DAILY [facility] Administration Gabapentin 200 mg 02/20/18 14:00 02/23/18 13:44 Neurontin Oral Liquid - GT Not Given TID [facility] Heparin Sodium (Porcine) 5,000 unit 02/20/18 14:00 02/23/18 13:41 Heparin - SQ 5,000 unit TID [facility] Administration Piperacillin Sod/Tazobactam 50 mls @ 100 mls/hr 02/20/18 10:30 02/23/18 17:44 Sod 3.375 gm/ Dextrose IVPB 100 mls/hr Q8H-IV [facility] Administration Azithromycin 500 mg/ Dextrose 250 mls @ 250 mls/hr 02/21/18 10:00 02/23/18 11 :46 IVPB 250 mls/hr DAILY [facility] Administration Lamotrigine 200 mg 02/20/18 12:15 02/23/18 10:40 Lamictal - GT 200 mg BID [facility] Administration Levothyroxine Sodium 50 mcg 02/20/18 10:00 02/23/18 06:10 Synthroid - GT 50 mcg ACBK [facility] Administration Loratadine 10 mg 02/20/18 10:00 02/23/18 11:24 Claritin - GT 10 mg DAILY [facility] Administration Methylprednisolone Sodium Succinate 40 mg 02/21/18 11:15 02/23/18 11:25 Solu-Medrol - IVPUSH 02/25/18 10:01 40 mg DAILY [facility] Administration Mupirocin 1 applic 02/20/18 14:00 02/23/18 13:43 Bactroban 2% Ointment - TP 1 applic TID [facility] Administration Polyethylene Glycol 17 gm 02/20/18 10:00 02/23/18 11:25 Miralax (For Bowel Prep) - PO 17 gm DAILY [facility] Administration Scopolamine HBr 1 patch 02/20/18 10:00 02/23/18 10:43 Transderm-Scop - TD 1 patch Q72H [facility] Administration Senna 2 tab 02/20/18 22:00 02/22/18 21:24 Senna - PO 2 tab HS [facility] Administration Sodium Chloride 2 spray 02/20/18 08:21 [place] Nasal [place] - NS TID PRN NASAL CONGESTION Topiramate 25 mg 02/20/18 10:00 02/23/18 11:24 Topamax - PO 25 mg BID [facility] Administration ASSESSMENT AND PLAN: This is a 47 year old man with a history of cerebral palsy, quadriplegia, profound mental retardation, hypothyroidism, seizure disorder, asthma, chronic hypoxic respiratory failure, GERD, recurrent pneumonia, Katherine fundoplication, PEG who was sent to the ED from [facility] for evaluation of hypoxia. 1. Acute on chronic hypoxic and hypercapnic respiratory failure secondary to healthcare-associated pneumonia, possible aspiration pneumonia - Continue Zosyn, Zithromax, SoluMedrol - Continue BiPAP as needed, DuoNeb, albuterol nebs as needed - Urine Pneumococcus Ag negative - Urine Legionella Ag pending - RSV Ag negative - Influenza A and B Ag negative 2. Cerebral palsy with profound mental retardation and quadriplegia 3. Seizure disorder - Continue Depakote, Lamictal, Neurontin, Topamax, Klonopin, Diastat as needed 4. Hypothyroidism - Continue Synthroid 5. Asthma 6. GERD 7. Nutrition - PEG feedings held secondary to possible aspiration
[2018-02-23] MEDS: SENNOSIDES 8.6MG TABLET (FP) PO SCH (22:33)
[2018-02-24] MEDS: PIPERACILLIN/TAZOB 3.375 GM 3.375 GM in DEXTROSE 5%-WATER - 50 ML IVPB SCH ×2 (02:07→11:01)
[2018-02-24] MEDS: clonazePAM 0.5 MG TABLET GT SCH ×3 (06:08→21:20)
[2018-02-24] MEDS: ALBUTEROL SO4 2.5/IPRATROPIUM 0.5 INH SOL 3 ML VIAL.NEB. NEB SCH ×5 (06:08→22:08)
[2018-02-24] MEDS: GABAPENTIN 250 MG/5 ML ORAL SOLUTION, 470 ML BOTTLE GT SCH ×4 (06:08→21:21)
[2018-02-24] MEDS: HEPARIN NA (PORCINE) 5,000 UNITS/ML 1ML VIAL SQ SCH ×3 (06:09→21:26)
[2018-02-24] MEDS: LEVOTHYROXINE NA 50 MCG TABLET (FP) GT SCH (06:09)
[2018-02-24] MEDS: MUPIROCIN 2% TOPICAL OINTMENT 22 GM TUBE TP SCH ×3 (06:10→21:22)
[2018-02-24] MEDS: ARTIFICIAL TEARS (POLYVINYL ALCOHOL 1.4%) OPTH DROPS OU PRN ×2 (06:13→21:22)
[2018-02-24] MEDS ORDERED: PT OWN MED DRAWER 7, Y5N ONE (08:30)
[2018-02-24] MEDS: AZITHROMYCIN IVPB 500 MG in DEXTROSE 5%-WATER - 250 ML IVPB SCH ×2 (09:19→11:17)
[2018-02-24 09:43] LABS: HEMATOCRIT 30.7 % (35.4-49); HEMOGLOBIN 10.3 GM/dL (11.7-16.9); MCHC 33.5 g/dl (32.0-35.9); MEAN CELL VOLUME 104.5 fl (80-96); MEAN PLT VOLUME 8.4 fl (7.5-11.1); PLATELET COUNT 130 K/MM3 (134-434); RBC 2.94 M/mm3 (4.00-5.60); RDW 14.9 % (11.9-15.9); WHITE BLOOD COUNT 8.5 K/mm3 (4.0-10.0)
--- NOTE | 2018-02-24 10:21 | PN ---
Progress Note (short form) - Note Progress Note: PULMONARY Awake, alert off BiPAP. Remains hypothermic. Last Vital Signs Temp Pulse Resp BP Pulse Ox 95.1 F L 54 L 18 111/53 96 02/24/18 06:00 02/24/18 06:00 02/24/18 06:00 02/24/18 06:00 02/23/18 11:10 Gen: awake, mildly tachypneic Heart: RRR Lung: decreased breath sounds at the bases Abd: soft, nontender Ext: no edema CBC, BMP 02/24/18 09:15 02/22/18 06:10 Active Medications Albuterol Sulfate (Ventolin 0.083% Nebulizer Soln -) 1 amp NEB Q4H PRN PRN Reason: SHORT OF BREATH/WHEEZING Albuterol/Ipratropium (Duoneb -) 1 amp NEB Q4HWA [facility] Last Admin: 02/24/18 06:08 Dose: 1 amp Artificial Tears (Artificial Tears) 1 drop OU BID PRN PRN Reason: DRY EYES Last Admin: 02/24/18 06:13 Dose: 1 drop Clonazepam (Klonopin -) 0.5 mg GT TID [facility] Last Admin: 02/24/18 06:08 Dose: 0.5 mg Diazepam (Diastat Rectal Gel -) 10 mg RC PRN PRN PRN Reason: SEIZURE Divalproex Sodium (Depakote Sprinkle Caps -) 375 mg GT BID [facility] Last Admin: 02/23/18 22:37 Dose: 375 mg Ferrous Sulfate (Feosol) 300 mg GT BID [facility] Last Admin: 02/23/18 22:38 Dose: 300 mg Furosemide (Lasix -) 20 mg PO DAILY [facility] Last Admin: 02/23/18 11:24 Dose: 20 mg Gabapentin (Neurontin Oral Liquid -) 200 mg GT TID [facility] Last Admin: 02/24/18 06:08 Dose: 200 mg Heparin Sodium (Porcine) (Heparin -) 5,000 unit SQ TID [facility] Last Admin: 02/24/18 06:09 Dose: 5,000 unit Piperacillin Sod/Tazobactam (Sod 3.375 gm/ Dextrose) 50 mls @ 100 mls/hr IVPB Q8H-IV [facility] Last Admin: 02/24/18 02:07 Dose: 100 mls/hr Azithromycin 500 mg/ Dextrose 250 mls @ 250 mls/hr IVPB DAILY [facility] Last Admin: 02/24/18 09:19 Dose: 250 mls/hr Lamotrigine (Lamictal -) 200 mg GT BID [facility] Last Admin: 02/23/18 22:36 Dose: 200 mg Levothyroxine Sodium (Synthroid -) 50 mcg GT ACBK [facility] Last Admin: 02/24/18 06:09 Dose: 50 mcg Loratadine (Claritin -) 10 mg GT DAILY [facility] Last Admin: 02/23/18 11:24 Dose: 10 mg Methylprednisolone Sodium Succinate (Solu-Medrol -) 40 mg IVPUSH DAILY [facility] Stop: 02/25/18 10:01 Last Admin: 02/23/18 11:25 Dose: 40 mg Mupirocin (Bactroban 2% Ointment -) 1 applic TP TID [facility] Last Admin: 02/24/18 06:10 Dose: 1 applic Polyethylene Glycol (Miralax (For Bowel Prep) -) 17 gm PO DAILY [facility] Last Admin: 02/23/18 11:25 Dose: 17 gm Scopolamine HBr (Transderm-Scop -) 1 patch TD Q72H [facility] Last Admin: 02/23/18 10:43 Dose: 1 patch Senna (Senna -) 2 tab PO HS [facility] Last Admin: 02/23/18 22:33 Dose: 2 tab Sodium Chloride ([place] Nasal [place] -) 2 spray NS TID PRN PRN Reason: NASAL CONGESTION Last Admin: 02/24/18 06:14 Dose: 2 applic Topiramate (Topamax -) 25 mg PO BID [facility] Last Admin: 02/23/18 22:34 Dose: 25 mg A/P Acute Hypoxic and Hypercapneic Respiratory Failure Pneumonia likely Aspiration Cerebral Palsy Seizure Disorder Mental Retardation - continue antibiotics - aspiration precautions - medrol taper - inhaled bronchodilators - BiPAP as needed - O2 to keep SpO2 >90% - DVT prophylaxis - agree with efforts regarding palliative measures
[2018-02-24] MEDS: DIVALPROEX SODIUM 125 MG SPRINKLE CAPS GT SCH ×2 (11:00→21:20)
[2018-02-24] MEDS: MULTIVIT-MINERALS ORAL LIQUID GT SCH (11:01)
[2018-02-24] MEDS: lamoTRIgine 100 MG TABLET (FP) GT SCH ×2 (11:04→21:20)
[2018-02-24] MEDS: FERROUS SO4 300 MG/5 ML ORAL SOLN UNIT DOSE CUPS GT SCH ×2 (11:10→21:20)
[2018-02-24] MEDS: TOPIRAMATE 25 MG TABLET (FP) PO SCH ×2 (11:10→21:19)
[2018-02-24] MEDS: LORATADINE 10 MG TABLET GT SCH (11:10)
[2018-02-24] MEDS: FUROSEMIDE 20 MG TABLET (FP) PO SCH (11:11)
[2018-02-24] MEDS: POLYETHYLENE GLYCOL 3350 255 GM BTL PO SCH (11:11)
[2018-02-24] MEDS: methylPREDNISolone NA SUCC 40 MG/1 ML VIAL IVPUSH SCH (11:12)
--- NOTE | 2018-02-24 14:41 | PN ---
Progress Note (short form) - Note Progress Note: chart reviewed much more alert coughing off bipap Vital Signs Period Temp Pulse Resp BP Sys/Celestin Pulse Ox Last 24 Hr 95.1 F-98.1 F 54-70 18-18 92-133/51-68 94-94 cor-rrr lung scattered rhonchi abd +gt ext no edema cxray improved CBC, BMP 02/24/18 09:15 02/22/18 06:10 Microbiology 02/20/18 12:00 Urine For Antigen Detection Legionella Antigen - Final 02/20/18 12:00 Urine For Antigen Detection Streptococcus pneumoniae Antigen (M - Final 02/20/18 04:50 Blood - Peripheral Venous Blood Culture - Preliminary NO GROWTH OBTAINED AFTER 96 HOURS, INCUBATION TO CONTINUE FOR 1 DAYS. 02/20/18 04:50 Blood - Peripheral Venous Blood Culture - Preliminary NO GROWTH OBTAINED AFTER 96 HOURS, INCUBATION TO CONTINUE FOR 1 DAYS. 02/20/18 08:12 Urine - Urine - Catheterized Urine Culture - Final NO GROWTH OBTAINED 02/20/18 14:15 Nasopharyngeal Swab Respiratory Syncytial Virus Ag - Final 02/20/18 08:12 Nasopharyngeal Swab Influenza Types A,B Antigen (DINA) - Final 02/20/18 08:12 Nasopharyngeal Swab - Final a/p hypoxia-- improved right lung infiltrate ?aspliration day #5 zithromax day #4 zosyn can d/c zithromax switch to augmentin via gt thanks Problem List - Problems (1) Hypoxia Code(s): R09.02 - HYPOXEMIA (2) Pneumonia Code(s): J18.9 - PNEUMONIA, UNSPECIFIED ORGANISM
--- NOTE | 2018-02-24 16:31 | PN ---
Teaching Attending Note Name of Resident: Brady Mendez ATTENDING PHYSICIAN STATEMENT I saw and evaluated the patient. I reviewed the resident's note and discussed the case with the resident. I agree with the resident's findings and plan as documented. SUBJECTIVE: Patient is comfortable lying in bed. OBJECTIVE: Vital Signs Period Temp Pulse Resp BP Sys/Celestin Pulse Ox Last 24 Hr 95.1 F-98.1 F 54-70 18-18 92-133/51-68 94-94 HEART: S1S2, RRR LUNGS: Clear ABDOMEN: Soft, non-distended, normal BS EXTREMITIES: No edema Laboratory Results - last 24 hr 02/20/18 02/24/18 10:31 09:15 WBC 8.5 RBC 2.94 L Hgb 10.3 L D Hct 30.7 L MCV 104.5 H MCH 35.0 H MCHC 33.5 RDW 14.9 Plt Count 130 L MPV 8.4 Cold Agglutinins Negative Current Medications Generic Name Dose Route Start Last Admin Trade Name Freq PRN Reason Stop Dose Admin Albuterol Sulfate 1 amp 02/20/18 08:14 Ventolin 0.083% Nebulizer Soln - NEB Q4H PRN SHORT OF BREATH/WHEEZING Albuterol/Ipratropium 1 amp 02/20/18 10:00 02/24/18 09:42 Duoneb - NEB 1 amp Q4HWA [facility] Administration Amoxicillin/Clavulanate Potassium 1 tab 02/24/18 17:30 Augmentin - 500mg Tablet PO BIDWM [facility] Artificial Tears 1 drop 02/20/18 08:21 02/24/18 06:13 Artificial Tears OU 1 drop BID PRN Administration DRY EYES Clonazepam 0.5 mg 02/20/18 14:00 02/24/18 14:03 Klonopin - GT 0.5 mg TID [facility] Administration Diazepam 10 mg 02/23/18 08:08 Diastat Rectal Gel - RC PRN PRN SEIZURE Divalproex Sodium 375 mg 02/20/18 12:15 02/24/18 11:00 Depakote Sprinkle Caps - GT 375 mg BID [facility] Administration Ferrous Sulfate 300 mg 02/20/18 10:00 02/24/18 11:10 Feosol GT 300 mg BID [facility] Administration Furosemide 20 mg 02/20/18 10:00 02/24/18 11:11 Lasix - PO 20 mg DAILY [facility] Administration Gabapentin 200 mg 02/20/18 14:00 02/24/18 15:51 Neurontin Oral Liquid - GT 200 mg TID [facility] Administration Heparin Sodium (Porcine) 5,000 unit 02/20/18 14:00 02/24/18 14:04 Heparin - SQ 5,000 unit TID [facility] Administration Lamotrigine 200 mg 02/20/18 12:15 02/24/18 11:04 Lamictal - GT 200 mg BID [facility] Administration Levothyroxine Sodium 50 mcg 02/20/18 10:00 02/24/18 06:09 Synthroid - GT 50 mcg ACBK [facility] Administration Loratadine 10 mg 02/20/18 10:00 02/24/18 11:10 Claritin - GT 10 mg DAILY [facility] Administration Methylprednisolone Sodium Succinate 40 mg 02/21/18 11:15 02/24/18 11:12 Solu-Medrol - IVPUSH 02/25/18 10:01 Not Given DAILY [facility] Mupirocin 1 applic 02/20/18 14:00 02/24/18 14:05 Bactroban 2% Ointment - TP 1 applic TID [facility] Administration Polyethylene Glycol 17 gm 02/20/18 10:00 02/24/18 11:11 Miralax (For Bowel Prep) - PO 17 gm DAILY [facility] Administration Scopolamine HBr 1 patch 02/20/18 10:00 02/23/18 10:43 Transderm-Scop - TD 1 patch Q72H [facility] Administration Senna 2 tab 02/20/18 22:00 02/23/18 22:33 Senna - PO 2 tab HS [facility] Administration Sodium Chloride 2 spray 02/20/18 08:21 02/24/18 06:14 [place] Nasal [place] - NS 2 applic TID PRN Administration NASAL CONGESTION Topiramate 25 mg 02/20/18 10:00 02/24/18 11:10 Topamax - PO 25 mg BID [facility] Administration ASSESSMENT AND PLAN: This is a 47 year old man with a history of cerebral palsy, quadriplegia, profound mental retardation, hypothyroidism, seizure disorder, asthma, chronic hypoxic respiratory failure, GERD, recurrent pneumonia, Katherine fundoplication, PEG who was sent to the ED from [facility] for evaluation of hypoxia. 1. Acute on chronic hypoxic and hypercapnic respiratory failure secondary to healthcare-associated pneumonia, possible aspiration pneumonia - Completed Zithromax - Zosyn changed to Augmentin - Continue SoluMedrol - Tolerating venti mask O2 - Continue BiPAP as needed, DuoNeb, albuterol nebs as needed - Urine Pneumococcus and Legionella Ag negative - RSV Ag negative - Influenza A and B Ag negative 2. Cerebral palsy with profound mental retardation and quadriplegia 3. Seizure disorder - Continue Depakote, Lamictal, Neurontin, Topamax, Klonopin, Diastat as needed 4. Hypothyroidism - Continue Synthroid 5. Asthma 6. GERD 7. Nutrition - Resume PEG feedings
--- NOTE | 2018-02-24 16:41 | PN ---
Physical Exam: SUBJECTIVE: Patient seen and examined at bedside. Hypothermic again this AM to 95. Margarito hugger in place. No events overnight. saturating well on venti mask OBJECTIVE: Vital Signs Period Temp Pulse Resp BP Sys/Celestin Pulse Ox Last 24 Hr 95.1 F-98.1 F 54-70 18-18 92-133/51-68 94-97 GENERAL: The patient is awake, alert, in no acute distress. Patient nonverbal at baseline. HEAD: Normal with no signs of trauma. NECK: Trachea midline, full range of motion, supple. LUNGS: Breath sounds equal, coarse breath sounds b/l, though improved today, no accessory muscle use. HEART: Regular rate and rhythm, S1, S2 without murmur, rub or gallop. ABDOMEN: Soft, nontender, nondistended, normoactive bowel sounds, no guarding, no rebound, no hepatosplenomegaly, no masses. EXTREMITIES: 2+ pulses, warm, well-perfused, no edema. NEUROLOGICAL: unable to obtain SKIN: Warm, dry, normal turgor, no rashes or lesions noted Laboratory Results - last 24 hr 02/20/18 02/24/18 10:31 09:15 WBC 8.5 RBC 2.94 L Hgb 10.3 L D Hct 30.7 L MCV 104.5 H MCH 35.0 H MCHC 33.5 RDW 14.9 Plt Count 130 L MPV 8.4 Cold Agglutinins Negative Active Medications Generic Name Dose Route Start Last Admin Trade Name Freq PRN Reason Stop Dose Admin Albuterol Sulfate 1 amp 02/20/18 08:14 Ventolin 0.083% Nebulizer Soln - NEB Q4H PRN SHORT OF BREATH/WHEEZING Albuterol/Ipratropium 1 amp 02/20/18 10:00 02/24/18 14:28 Duoneb - NEB 1 amp Q4HWA [facility] Administration Amoxicillin/Clavulanate Potassium 1 tab 02/24/18 17:30 Augmentin - 500mg Tablet PO BIDWM [facility] Artificial Tears 1 drop 02/20/18 08:21 02/24/18 06:13 Artificial Tears OU 1 drop BID PRN Administration DRY EYES Clonazepam 0.5 mg 02/20/18 14:00 02/24/18 14:03 Klonopin - GT 0.5 mg TID [facility] Administration Diazepam 10 mg 02/23/18 08:08 Diastat Rectal Gel - RC PRN PRN SEIZURE Divalproex Sodium 375 mg 02/20/18 12:15 02/24/18 11:00 Depakote Sprinkle Caps - GT 375 mg BID [facility] Administration Ferrous Sulfate 300 mg 02/20/18 10:00 02/24/18 11:10 Feosol GT 300 mg BID [facility] Administration Furosemide 20 mg 02/20/18 10:00 02/24/18 11:11 Lasix - PO 20 mg DAILY [facility] Administration Gabapentin 200 mg 02/20/18 14:00 02/24/18 15:51 Neurontin Oral Liquid - GT 200 mg TID [facility] Administration Heparin Sodium (Porcine) 5,000 unit 02/20/18 14:00 02/24/18 14:04 Heparin - SQ 5,000 unit TID [facility] Administration Lamotrigine 200 mg 02/20/18 12:15 02/24/18 11:04 Lamictal - GT 200 mg BID [facility] Administration Levothyroxine Sodium 50 mcg 02/20/18 10:00 02/24/18 06:09 Synthroid - GT 50 mcg ACBK [facility] Administration Loratadine 10 mg 02/20/18 10:00 02/24/18 11:10 Claritin - GT 10 mg DAILY [facility] Administration Methylprednisolone Sodium Succinate 40 mg 02/21/18 11:15 02/24/18 11:12 Solu-Medrol - IVPUSH 02/25/18 10:01 Not Given DAILY [facility] Mupirocin 1 applic 02/20/18 14:00 02/24/18 14:05 Bactroban 2% Ointment - TP 1 applic TID [facility] Administration Polyethylene Glycol 17 gm 02/20/18 10:00 02/24/18 11:11 Miralax (For Bowel Prep) - PO 17 gm DAILY [facility] Administration Scopolamine HBr 1 patch 02/20/18 10:00 02/23/18 10:43 Transderm-Scop - TD 1 patch Q72H [facility] Administration Senna 2 tab 02/20/18 22:00 02/23/18 22:33 Senna - PO 2 tab HS [facility] Administration Sodium Chloride 2 spray 02/20/18 08:21 02/24/18 06:14 [place] Nasal [place] - NS 2 applic TID PRN Administration NASAL CONGESTION Topiramate 25 mg 02/20/18 10:00 02/24/18 11:10 Topamax - PO 25 mg BID [facility] Administration ASSESSMENT/PLAN: This is a 47 year old male with significant past medical history of CP, seizure , recurrent PNA admitted for the treatment of pneumonia. # Acute hypoxic respiratory failure 2/2 HCAP/ Aspiration PNA -ID onboard - D/C IV Zosyn as patient is difficult to get IV access on. Will switch to Augmentin 500 BID via GT -IV Azithromycin 500mg Daily finished today. -Nebs standing and PRN -aspiration precautions -Chest PT, pulmonary toilet -restart Feeds #h/o epilepsy- controlled -c/w home Lamotrigine 200mg GT BID -c/w home Diazepam rectal Gel PRN -c/w home Topiramate -c/w home Depakoate 375mg GT bid #Hypothyroidism -c/w home Levothyroxine 50 mcg GT #Asthma -c/w nebs PRN #Dry eyes -c/w home Artificial tears OU BID #FEN -no fluids indicated -monitor lytes -Promote start at 30ml/hr, goal of 41ml/hr w/ 11ml/hr H2o and 8oz prune juice BID #Prophylaxis -Hep SQ 5ku TID #Dispo -admit inpatient med surg Visit type - Emergency Visit Emergency Visit: Yes ED Registration Date: 02/20/18 Care time: The patient presented to the Emergency Department on the above date and was hospitalized for further evaluation of their emergent condition. - New Patient This patient is new to me today: No - Critical Care Critical Care patient: No
[2018-02-24] MEDS: AMOX TR/POT CLAV 500MG/125MG TABLETS (FP) PO SCH (18:08)
[2018-02-24] MEDS: SENNOSIDES 8.6MG TABLET (FP) PO SCH (21:19)
[2018-02-25] MEDS: clonazePAM 0.5 MG TABLET GT SCH ×3 (05:34→22:36)
[2018-02-25] MEDS: HEPARIN NA (PORCINE) 5,000 UNITS/ML 1ML VIAL SQ SCH ×3 (05:35→21:38)
[2018-02-25] MEDS: GABAPENTIN 250 MG/5 ML ORAL SOLUTION, 470 ML BOTTLE GT SCH ×3 (05:35→22:41)
[2018-02-25] MEDS: MUPIROCIN 2% TOPICAL OINTMENT 22 GM TUBE TP SCH ×3 (05:35→22:00)
[2018-02-25] MEDS: ALBUTEROL SO4 2.5/IPRATROPIUM 0.5 INH SOL 3 ML VIAL.NEB. NEB SCH ×5 (06:09→23:00)
[2018-02-25] MEDS: LEVOTHYROXINE NA 50 MCG TABLET (FP) GT SCH (06:48)
[2018-02-25] MEDS: AMOX TR/POT CLAV 500MG/125MG TABLETS (FP) PO SCH (08:39)
[2018-02-25] MEDS ORDERED: PT OWN MED DRAWER 7, Y5N ONE ×3 (10:55→20:15)
[2018-02-25] MEDS: POLYETHYLENE GLYCOL 3350 255 GM BTL PO SCH (10:58)
[2018-02-25] MEDS: FUROSEMIDE 20 MG TABLET (FP) PO SCH (10:58)
[2018-02-25] MEDS: FERROUS SO4 300 MG/5 ML ORAL SOLN UNIT DOSE CUPS GT SCH ×2 (10:59→22:36)
[2018-02-25] MEDS: lamoTRIgine 100 MG TABLET (FP) GT SCH ×2 (10:59→22:50)
[2018-02-25] MEDS: TOPIRAMATE 25 MG TABLET (FP) PO SCH ×2 (10:59→22:35)
[2018-02-25] MEDS: methylPREDNISolone NA SUCC 40 MG/1 ML VIAL IVPUSH SCH (11:00)
[2018-02-25] MEDS: MULTIVIT-MINERALS ORAL LIQUID GT SCH (11:02)
[2018-02-25] MEDS: DIVALPROEX SODIUM 125 MG SPRINKLE CAPS GT SCH ×2 (11:03→22:50)
[2018-02-25] MEDS: LORATADINE 10 MG TABLET GT SCH (11:03)
[2018-02-25] MEDS: ARTIFICIAL TEARS (POLYVINYL ALCOHOL 1.4%) OPTH DROPS OU PRN (14:21)
[2018-02-25] MEDS: predniSONE 20 MG TABLET (UD) GT SCH (14:21)
--- NOTE | 2018-02-25 15:33 | PN ---
Progress Note, Physician History of Present Illness: pulmonary awake,less congested on o2 via vm,hypothermic on warming blanket - Current Medication List Current Medications: Active Medications Albuterol Sulfate (Ventolin 0.083% Nebulizer Soln -) 1 amp NEB Q4H PRN PRN Reason: SHORT OF BREATH/WHEEZING Albuterol/Ipratropium (Duoneb -) 1 amp NEB Q4HWA [facility] Last Admin: 02/25/18 14:00 Dose: 1 amp Amoxicillin/Clavulanate Potassium (Augmentin - 875mg Tablet) 1 tab PO BID@0800, 1730 [facility] Artificial Tears (Artificial Tears) 1 drop OU BID PRN PRN Reason: DRY EYES Last Admin: 02/25/18 14:21 Dose: 1 drop Clonazepam (Klonopin -) 0.5 mg GT TID [facility] Last Admin: 02/25/18 13:52 Dose: 0.5 mg Diazepam (Diastat Rectal Gel -) 10 mg RC PRN PRN PRN Reason: SEIZURE Divalproex Sodium (Depakote Sprinkle Caps -) 375 mg GT BID [facility] Last Admin: 02/25/18 11:03 Dose: 375 mg Ferrous Sulfate (Feosol) 300 mg GT BID [facility] Last Admin: 02/25/18 10:59 Dose: 300 mg Furosemide (Lasix -) 20 mg PO DAILY [facility] Last Admin: 02/25/18 10:58 Dose: Not Given Gabapentin (Neurontin Oral Liquid -) 200 mg GT TID [facility] Last Admin: 02/25/18 13:53 Dose: 200 mg Heparin Sodium (Porcine) (Heparin -) 5,000 unit SQ TID [facility] Last Admin: 02/25/18 13:53 Dose: 5,000 unit Lamotrigine (Lamictal -) 200 mg GT BID [facility] Last Admin: 02/25/18 10:59 Dose: 200 mg Levothyroxine Sodium (Synthroid -) 50 mcg GT ACBK [facility] Last Admin: 02/25/18 06:48 Dose: 50 mcg Loratadine (Claritin -) 10 mg GT DAILY [facility] Last Admin: 02/25/18 11:03 Dose: 10 mg Mupirocin (Bactroban 2% Ointment -) 1 applic TP TID [facility] Last Admin: 02/25/18 13:53 Dose: 1 applic Polyethylene Glycol (Miralax (For Bowel Prep) -) 17 gm PO DAILY [facility] Last Admin: 02/25/18 10:58 Dose: 17 gm Prednisone (Deltasone -) 40 mg GT DAILY [facility] Last Admin: 02/25/18 14:21 Dose: 40 mg Scopolamine HBr (Transderm-Scop -) 1 patch TD Q72H [facility] Last Admin: 02/23/18 10:43 Dose: 1 patch Senna (Senna -) 2 tab PO HS [facility] Last Admin: 02/24/18 21:19 Dose: 2 tab Sodium Chloride ([place] Nasal [place] -) 2 spray NS TID PRN PRN Reason: NASAL CONGESTION Last Admin: 02/24/18 06:14 Dose: 2 applic Topiramate (Topamax -) 25 mg PO BID [facility] Last Admin: 02/25/18 10:59 Dose: 25 mg - Objective Vital Signs: Vital Signs Temperature 97.0 F L 02/25/18 15:23 Pulse Rate 68 02/25/18 15:23 Respiratory Rate 18 02/25/18 15:23 Blood Pressure 118/68 02/25/18 15:23 O2 Sat by Pulse Oximetry (%) 96 02/25/18 09:00 Constitutional: Yes: Well Nourished, Calm Eyes: Yes: WNL HENT: Yes: WNL Neck: Yes: WNL Cardiovascular: Yes: Regular Rate and Rhythm, S1, S2 Respiratory: Yes: Rhonchi (scattered anabelle rhonchi) Gastrointestinal: Yes: Normal Bowel Sounds, Soft Extremities: Yes: WNL Edema: No Labs: CBC, BMP Problem List - Problems (1) Hypothermia Code(s): T68.XXXA - HYPOTHERMIA, INITIAL ENCOUNTER (2) Acute respiratory acidosis Code(s): E87.2 - ACIDOSIS (3) Hypercapnia Code(s): R06.89 - OTHER ABNORMALITIES OF BREATHING (4) Hypoxia Code(s): R09.02 - HYPOXEMIA (5) Pneumonia Code(s): J18.9 - PNEUMONIA, UNSPECIFIED ORGANISM (6) Acute respiratory failure Code(s): J96.00 - ACUTE RESPIRATORY FAILURE, UNSP W HYPOXIA OR HYPERCAPNIA (7) Pneumonia Code(s): J18.9 - PNEUMONIA, UNSPECIFIED ORGANISM Qualifiers: Pneumonia type: due to unspecified organism Laterality: right Lung location: unspecified part of lung Qualified Code(s): J18.9 - Pneumonia, unspecified organism (8) Cerebral palsy, quadriplegic Code(s): G80.8 - OTHER CEREBRAL PALSY (9) Hypothyroidism Code(s): E03.9 - HYPOTHYROIDISM, UNSPECIFIED (10) Mental retardation Code(s): F79 - UNSPECIFIED INTELLECTUAL DISABILITIES Assessment/Plan A/P Acute Hypoxic and Hypercapneic Respiratory Failure Pneumonia likely Aspiration Cerebral Palsy Seizure Disorder Mental Retardation - continue antibiotics - aspiration precautions - medrol taper - inhaled bronchodilators - BiPAP as needed - O2 to keep SpO2 >90% - DVT prophylaxis - f/u abgs - agree with efforts regarding palliative measures - chest x-ray am DR D[place]AS
--- NOTE | 2018-02-25 15:34 | PN ---
Physical Exam: SUBJECTIVE: Patient seen and examined at bedside. Continues to have hypothermia today; it is possible that this is his baseline. Saturating well on venti mask OBJECTIVE: Vital Signs Period Temp Pulse Resp BP Sys/Celestin Pulse Ox Last 24 Hr 95.9 F-97.5 F 68-96 18-20 88-118/49-68 96-98 GENERAL: The patient is awake, alert, in no acute distress. Patient nonverbal at baseline. HEAD: Normal with no signs of trauma. NECK: Trachea midline, full range of motion, supple. LUNGS: Breath sounds equal, coarse breath sounds improved again today, no accessory muscle use. HEART: Regular rate and rhythm, S1, S2 without murmur, rub or gallop. ABDOMEN: Soft, nontender, nondistended, normoactive bowel sounds, no guarding, no rebound, no hepatosplenomegaly, no masses. EXTREMITIES: 2+ pulses, warm, well-perfused, no edema. NEUROLOGICAL: unable to obtain SKIN: Warm, dry, normal turgor, no rashes or lesions noted Active Medications Generic Name Dose Route Start Last Admin Trade Name Freq PRN Reason Stop Dose Admin Albuterol Sulfate 1 amp 02/20/18 08:14 Ventolin 0.083% Nebulizer Soln - NEB Q4H PRN SHORT OF BREATH/WHEEZING Albuterol/Ipratropium 1 amp 02/20/18 10:00 02/25/18 14:00 Duoneb - NEB 1 amp Q4HWA [facility] Administration Amoxicillin/Clavulanate Potassium 1 tab 02/25/18 17:30 Augmentin - 875mg Tablet PO BID@0800,1730 [facility] Artificial Tears 1 drop 02/20/18 08:21 02/25/18 14:21 Artificial Tears OU 1 drop BID PRN Administration DRY EYES Clonazepam 0.5 mg 02/20/18 14:00 02/25/18 13:52 Klonopin - GT 0.5 mg TID [facility] Administration Diazepam 10 mg 02/23/18 08:08 Diastat Rectal Gel - RC PRN PRN SEIZURE Divalproex Sodium 375 mg 02/20/18 12:15 02/25/18 11:03 Depakote Sprinkle Caps - GT 375 mg BID [facility] Administration Ferrous Sulfate 300 mg 02/20/18 10:00 02/25/18 10:59 Feosol GT 300 mg BID [facility] Administration Furosemide 20 mg 02/20/18 10:00 02/25/18 10:58 Lasix - PO Not Given DAILY [facility] Gabapentin 200 mg 02/20/18 14:00 02/25/18 13:53 Neurontin Oral Liquid - GT 200 mg TID [facility] Administration Heparin Sodium (Porcine) 5,000 unit 02/20/18 14:00 02/25/18 13:53 Heparin - SQ 5,000 unit TID [facility] Administration Lamotrigine 200 mg 02/20/18 12:15 02/25/18 10:59 Lamictal - GT 200 mg BID [facility] Administration Levothyroxine Sodium 50 mcg 02/20/18 10:00 02/25/18 06:48 Synthroid - GT 50 mcg ACBK [facility] Administration Loratadine 10 mg 02/20/18 10:00 02/25/18 11:03 Claritin - GT 10 mg DAILY [facility] Administration Mupirocin 1 applic 02/20/18 14:00 02/25/18 13:53 Bactroban 2% Ointment - TP 1 applic TID [facility] Administration Polyethylene Glycol 17 gm 02/20/18 10:00 02/25/18 10:58 Miralax (For Bowel Prep) - PO 17 gm DAILY [facility] Administration Prednisone 40 mg 02/25/18 13:45 02/25/18 14:21 Deltasone - GT 40 mg DAILY [facility] Administration Scopolamine HBr 1 patch 02/20/18 10:00 02/23/18 10:43 Transderm-Scop - TD 1 patch Q72H [facility] Administration Senna 2 tab 02/20/18 22:00 02/24/18 21:19 Senna - PO 2 tab HS [facility] Administration Sodium Chloride 2 spray 02/20/18 08:21 02/24/18 06:14 [place] Nasal [place] - NS 2 applic TID PRN Administration NASAL CONGESTION Topiramate 25 mg 02/20/18 10:00 02/25/18 10:59 Topamax - PO 25 mg BID [facility] Administration ASSESSMENT/PLAN: This is a 47 year old male with significant past medical history of CP, seizure , recurrent PNA admitted for the treatment of pneumonia. # Acute hypoxic respiratory failure 2/2 HCAP/ Aspiration PNA -ID onboard -Augmentin 500 BID via GT (day 2) (day 6 total of abx) -Nebs standing and PRN -aspiration precautions -Chest PT, pulmonary toilet -solu-medrol 40 changed to prednisone 40 as pt has no IV site. #h/o epilepsy- controlled -c/w home Lamotrigine 200mg GT BID -c/w home Diazepam rectal Gel PRN -c/w home Topiramate -c/w home Depakoate 375mg GT bid #Hypothyroidism -c/w home Levothyroxine 50 mcg GT #Asthma -c/w nebs PRN #Dry eyes -c/w home Artificial tears OU BID #FEN -no fluids indicated -monitor lytes -Promote start at 30ml/hr, goal of 41ml/hr w/ 11ml/hr H2o and 8oz prune juice BID #Prophylaxis -Hep SQ 5ku TID #Dispo -admit inpatient med surg Visit type - Emergency Visit Emergency Visit: Yes ED Registration Date: 02/20/18 Care time: The patient presented to the Emergency Department on the above date and was hospitalized for further evaluation of their emergent condition. - New Patient This patient is new to me today: No - Critical Care Critical Care patient: No
[2018-02-25] MEDS: AMOX TR/POT CLAV 875MG/125MG TABLETS (FP) PO SCH (17:10)
--- NOTE | 2018-02-25 18:56 | PN ---
Teaching Attending Note Name of Resident: Brady Mendez ATTENDING PHYSICIAN STATEMENT I saw and evaluated the patient. I reviewed the resident's note and discussed the case with the resident. I agree with the resident's findings and plan as documented. SUBJECTIVE: No events but hypothermia OBJECTIVE: NAD, awake . CV: RRR LUngs: course breath sounds anteriorly Abd: soft, NT, ND, PEG in Ext: non pitting edema ASSESSMENT AND PLAN: 46 y/o man with h/o MR, Seizure disorder,cerebral palsy, s/p Katherine fundoplication , DM , GERD, recurrent PNA , and epistaxis who presented with hypoxia [facility] 1- Acute hypoxic resp failure due to PNA .? aspiration received IV abx and iv steroids initially cont Augmentin 875 BID monitor temp and WBC warming blanket . check TSH . monitor BP prednisone 2- h/o Seizure : cont home meds 3- H/o hypothyroidism : cont synthroid 4- Functional quadriplegia 5- Nutrition : cont TF dispo :[facility] paperwork completed to be faxed, regarding code status . will d/w [facility] provider
[2018-02-25] MEDS: SENNOSIDES 8.6MG TABLET (FP) PO SCH (22:35)
[2018-02-26] MEDS: clonazePAM 0.5 MG TABLET GT SCH ×2 (05:37→13:44)
[2018-02-26] MEDS: GABAPENTIN 250 MG/5 ML ORAL SOLUTION, 470 ML BOTTLE GT SCH ×2 (05:38→13:45)
[2018-02-26] MEDS: MUPIROCIN 2% TOPICAL OINTMENT 22 GM TUBE TP SCH ×2 (05:38→13:45)
[2018-02-26] MEDS: HEPARIN NA (PORCINE) 5,000 UNITS/ML 1ML VIAL SQ SCH ×2 (05:38→13:45)
[2018-02-26] MEDS: ALBUTEROL SO4 2.5/IPRATROPIUM 0.5 INH SOL 3 ML VIAL.NEB. NEB SCH ×4 (06:10→17:40)
[2018-02-26] MEDS: LEVOTHYROXINE NA 50 MCG TABLET (FP) GT SCH (06:13)
[2018-02-26] MEDS: SCOPOLAMINE HYDROBROMIDE 1 PATCH PATCH.TD72 TD SCH ×2 (06:13→10:43)
[2018-02-26] MEDS: AMOX TR/POT CLAV 875MG/125MG TABLETS (FP) PO SCH ×2 (08:29→17:11)
--- NOTE | 2018-02-26 09:59 | PN ---
Progress Note (short form) - Note Progress Note: PULMONARY Saturating well on 50% ventimask. Pt nonverbal. Last Vital Signs Temp Pulse Resp BP Pulse Ox 98.7 F 71 18 124/70 96 02/26/18 06:40 02/26/18 08:12 02/26/18 06:40 02/26/18 06:40 02/26/18 08:12 Gen: awake, breathing nonlabored Heart: RRR Lung: decreased breath sounds at the bases Abd: soft, nontender Ext: no edema CBC, BMP 02/24/18 09:15 02/22/18 06:10 Active Medications Albuterol Sulfate (Ventolin 0.083% Nebulizer Soln -) 1 amp NEB Q4H PRN PRN Reason: SHORT OF BREATH/WHEEZING Albuterol/Ipratropium (Duoneb -) 1 amp NEB Q4HWA [facility] Last Admin: 02/26/18 06:10 Dose: 1 amp Amoxicillin/Clavulanate Potassium (Augmentin - 875mg Tablet) 1 tab PO BID@0800, 1730 [facility] Last Admin: 02/26/18 08:29 Dose: 1 tab Artificial Tears (Artificial Tears) 1 drop OU BID PRN PRN Reason: DRY EYES Last Admin: 02/25/18 14:21 Dose: 1 drop Clonazepam (Klonopin -) 0.5 mg GT TID [facility] Last Admin: 02/26/18 05:37 Dose: 0.5 mg Diazepam (Diastat Rectal Gel -) 10 mg RC PRN PRN PRN Reason: SEIZURE Divalproex Sodium (Depakote Sprinkle Caps -) 375 mg GT BID [facility] Last Admin: 02/25/18 22:50 Dose: 375 mg Ferrous Sulfate (Feosol) 300 mg GT BID [facility] Last Admin: 02/25/18 22:36 Dose: 300 mg Furosemide (Lasix -) 20 mg PO DAILY [facility] Last Admin: 02/25/18 10:58 Dose: Not Given Gabapentin (Neurontin Oral Liquid -) 200 mg GT TID [facility] Last Admin: 02/26/18 05:38 Dose: 200 mg Heparin Sodium (Porcine) (Heparin -) 5,000 unit SQ TID [facility] Last Admin: 02/26/18 05:38 Dose: 5,000 unit Lamotrigine (Lamictal -) 200 mg GT BID [facility] Last Admin: 02/25/18 22:50 Dose: 200 mg Levothyroxine Sodium (Synthroid -) 50 mcg GT ACBK [facility] Last Admin: 02/26/18 06:13 Dose: 50 mcg Loratadine (Claritin -) 10 mg GT DAILY [facility] Last Admin: 02/25/18 11:03 Dose: 10 mg Mupirocin (Bactroban 2% Ointment -) 1 applic TP TID [facility] Last Admin: 02/26/18 05:38 Dose: 1 applic Polyethylene Glycol (Miralax (For Bowel Prep) -) 17 gm PO DAILY [facility] Last Admin: 02/25/18 10:58 Dose: 17 gm Prednisone (Deltasone -) 40 mg GT DAILY [facility] Last Admin: 02/25/18 14:21 Dose: 40 mg Scopolamine HBr (Transderm-Scop -) 1 patch TD Q72H [facility] Last Admin: 02/26/18 06:13 Dose: 1 patch Senna (Senna -) 2 tab PO HS [facility] Last Admin: 02/25/18 22:35 Dose: 2 tab Sodium Chloride (Fate Startex Nasal Startex -) 2 spray NS TID PRN PRN Reason: NASAL CONGESTION Last Admin: 02/24/18 06:14 Dose: 2 applic Topiramate (Topamax -) 25 mg PO BID [facility] Last Admin: 02/25/18 22:35 Dose: 25 mg A/P Acute Hypoxic and Hypercapneic Respiratory Failure Pneumonia likely Aspiration Cerebral Palsy Seizure Disorder Mental Retardation - continue antibiotics - aspiration precautions - prednisone taper - inhaled bronchodilators - O2 to keep SpO2 >90% - DVT prophylaxis - agree with efforts regarding palliative measures
[2018-02-26] MEDS ORDERED: PT OWN MED DRAWER 7, Y5N ONE (10:16)
[2018-02-26] MEDS: FUROSEMIDE 20 MG TABLET (FP) PO SCH (10:40)
[2018-02-26] MEDS: TOPIRAMATE 25 MG TABLET (FP) PO SCH (10:41)
[2018-02-26] MEDS: POLYETHYLENE GLYCOL 3350 255 GM BTL PO SCH (10:41)
[2018-02-26] MEDS: predniSONE 20 MG TABLET (UD) GT SCH (10:42)
[2018-02-26] MEDS: LORATADINE 10 MG TABLET GT SCH (10:42)
[2018-02-26] MEDS: MULTIVIT-MINERALS ORAL LIQUID GT SCH (10:42)
[2018-02-26] MEDS: FERROUS SO4 300 MG/5 ML ORAL SOLN UNIT DOSE CUPS GT SCH (10:43)
[2018-02-26] MEDS: lamoTRIgine 100 MG TABLET (FP) GT SCH (10:43)
[2018-02-26] MEDS: DIVALPROEX SODIUM 125 MG SPRINKLE CAPS GT SCH (10:43)
[2018-02-26] MEDS ORDERED: predniSONE 20 MG TABLET (UD) GT SCH (11:05)
--- NOTE | 2018-02-26 13:25 | PN ---
Physical Exam: SUBJECTIVE: Patient seen and examined left a message on Faiza Cummings on cell [phone] informing that patient is stable for transfer back to [facility] and call my pager to discuss the petition for DNR/DNI. Ms. Cummings has been seeking to make Irvin DNR/DNI which requires an application to be sent to [facility] for review. Mr. Jama is having recurrent aspiration episodes causing hypoxic respiratory distress and aspiration pneumonia requiring hospitalization, antibiotics, bipap and steroid treatments. In addition he has been having recurrent exacerbations of his CHF at [facility]. While he recovers, the episodes continue in frequency and he is at risk for developing resistance to antibiotics, repeat hospitalizations, and requiring intubation for his respiratory failure which further places him at risk for VAP with a high likelihood for tracheostomy. If given a tracheostomy he would no longer be able to remain at [facility], a facility which has cared for him for many years. The form will require the attending to speak to both the mother (Faiza Cummings) and the father, who maintain guardianship, via phone/meeting to obtain their understanding and consent for the DNR/DNI. An witness must sign this page. The second page requires information regarding the justification of why Mr. Jama should have these measures in place, provided above. 2 Attendings who concur, pulmonologists qualify. They have previously been consulted and agree with palliative care efforts for Mr. Jama given his declining health. The third page requires names and numbers for mental hygiene, information that Danii can help provided. This form will then be faxed to the [facility] and within a 48hr period a decision will be provided.
--- NOTE | 2018-02-26 14:00 | PN ---
Teaching Attending Note Name of Resident: Brady Mendez ATTENDING PHYSICIAN STATEMENT I saw and evaluated the patient. I reviewed the resident's note and discussed the case with the resident. I agree with the resident's findings and plan as documented. SUBJECTIVE: No events. unable to take any history. OBJECTIVE: NAD, awake . CV: RRR Lungs: course breath sounds anteriorly Abd: soft, NT, ND, PEG in Ext: non pitting edema ASSESSMENT AND PLAN: 46 y/o man with h/o MR, Seizure disorder,cerebral palsy, s/p Katherine fundoplication , DM , GERD, recurrent PNA , and epistaxis who presented with hypoxia [facility]'s facility 1- Acute hypoxic resp failure due to PNA .? aspiration cont augmentin x 5 more days hypothermia resolved, TSH NL quick prednisone taper off venti mask , tolerated 2 L of NC ( 91%) will cont at dc cont home lasix , confirmed with [facility] records 2- h/o Seizure: cont home meds 3- H/o hypothyroidism : cont synthroid 4- Functional quadriplegia 5- Nutrition : cont TF Dispo dc back to [facility]. discussion about changing code status and the legal paperwork needed can be done as outpt
[2018-02-26 17:19] VITALS: BP 108/55; PULSE 73; TEMP 98
--- NOTE | 2018-02-26 22:14 | DS ---
Physical Exam: SUBJECTIVE: Patient seen and examined at bedside. Patient improved today. OBJECTIVE: Vital Signs Period Temp Pulse Resp BP Sys/Celestin Pulse Ox Last 24 Hr 97.7 F-98.7 F 67-74 16-18 94-125/54-70 91-97 PHYSICAL EXAM GENERAL: The patient is awake, alert, in no acute distress. Patient nonverbal at baseline. HEAD: Normal with no signs of trauma. NECK: Trachea midline, full range of motion, supple. LUNGS: Breath sounds equal, coarse breath sounds improved again today, no accessory muscle use. HEART: Regular rate and rhythm, S1, S2 without murmur, rub or gallop. ABDOMEN: Soft, nontender, nondistended, normoactive bowel sounds, no guarding, no rebound, no hepatosplenomegaly, no masses. EXTREMITIES: 2+ pulses, warm, well-perfused, no edema. NEUROLOGICAL: unable to obtain SKIN: Warm, dry, normal turgor, no rashes or lesions noted LABS Laboratory Results - last 24 hr 02/26/18 06:30 TSH 1.56 D HOSPITAL COURSE: Date of Admission:02/20/18 The patient is a 47 year old male w/ PMH cerebral palsy, congenital quadriplegia and hypothyroidism who was sent from [facility] for the evaluation of hypoxia. In the skilled nursing, the patient's saturation was found to be between 87-88%. In the ED, the patient was found to be hypoxic to 88% with a Pc02 of 62.2 and a Po2 of 46.1. The patient was placed on BiPap in the ED to maintain saturation. A CXR showed atalectasis on the left and new infiltrate on the right. The patient was admitted for the treatment of HCAP/ aspiration pneumonia. ID was consulted. Pulmonology was consulted. The patient was treated with nebulizers, Zosyn, azithromycin, augmentin (total of 7 days of ABX) and IV and PO steroids. He improved on this treatment and was weaned from BiPap to venuri mask, then high flow nasal cannula. The patient was discharged back to [facility] with a prescription for the last dose of his Augmentin 500mg as well as a 6 day prednisone taper. The paitnet was sent home on home oxygen by nasal cannula. The patient's caregivers were advised to follow up with the patient's PCP within 1 week of discharge home. Given the patient's history of recurrent pneumonia causing multiple hospitalizations, many rounds of antibiotics and dependence on home oxygen, the patient's biological mother expressed wishes to make the patient DNR/DNI. The case was discussed with the patient's PCP, Dr. Momin. The full details of this process can be found in Dr. Amos's progress note dated 02/26/2018. Date of Discharge: 02/26/18 Minutes to complete discharge: 55 Discharge Summary Reason For Visit: HYPOXIA Condition: Improved - Instructions Diet, Activity, Other Instructions: You were admitted for the treatment of your pneumonia. You were treated with You should follow up with your primary care physician, Dr. Momin, within 1 week of discharge home. You are being sent home with an antibiotic to help continue to fight your infection. This antibiotic is called Augmentin. This evening is the last dose. You are requiring 2L of supplemental oxygen via nasal cannula to maintain your oxygen >90%, you were saturating at 91% on 2L in the hospital We are also sending you home on a Prednisone taper. You should take your Prednisone once every day according to the following taper: 02/27: 30mg 02/28: 25mg 22: 20mg 03/02: 15mg 03/03: 10mg 03/04: 5mg STOP steroids on 03/05 If you begin to experience worsening chest pain, shortness of breath, fevers, chills or if any of your symptoms get worse, Please call your doctor or return to the emergency department. Referrals: ON STAFF,NOT [Non Staff, Medical] - 1 Week (Dr. momin) Disposition: HOME - Home Medications Comprehensive Discharge Medication List: Ambulatory Orders Albuterol 0.083% Nebulizer Yolanda [Ventolin 0.083% Nebulizer Soln -] 1 amp NEB Q8H PRN 06/22/17 Calcium Carbonate/Vitamin D3 [Oyster Shell 500-Vit D3 200 Tb] 1 each GT BID Clonazepam 0.5 mg GT TID 06/22/17 Diazepam [Diastat Acudial] 1 each RC PRN PRN 06/22/17 Divalproex Sodium [Depakote] 375 mg GT BID 06/22/17 Ferrous Sulfate *Liquid* [Feosol *Liquid*] 5 ml GT BID 06/22/17 Gabapentin 200 mg GT TID 06/22/17 Lamotrigine [Lamictal Xr] 200 mg GT BID 06/22/17 Levothyroxine [Synthroid -] 50 mcg GT DAILY 06/22/17 Loratadine 10 mg GT DAILY 06/22/17 Multivit-Min/FA/Lycopen/Lutein [Vitrum 50+ Senior Tablet] 1 each GT DAILY Nutritional Supplement/Fiber [Promote with Fiber Liquid] 830 ml GT DAILY Polyethylene Glycol 3350 [Glycolax] 17 gm GT DAILY 06/22/17 Protein Supplement [Promod] 30 ml GT DAILY 06/22/17 Sennosides [Senna] 2 tab GT HS 06/22/17 Sodium Chloride Nasal Gel [[place] Saline Nasal Gel -] 1 applic TP DAILY 06/22/17 Sodium Chloride Tablet - 2.5 tab GT HS 06/22/17 Sodium Chloride Tablet - 3.5 tab GT AM 06/22/17 Topiramate 25 gm GT BID 06/22/17 Scopolamine Hydrobromide [Transderm-Scop -] 1 patch TD Q72H #20 patch 07/07/17 Sodium Chloride Nasal [place] [[place] Nasal [place] -] 2 spray NS TID PRN #1 bottle 07/07/17 Glycopyrrolate [Robinul] 1 mg GT TID 09/04/17 Polyvinyl Alcohol [Artificial Tears] 1 spray OU BID PRN #1 bottle 09/12/17 Furosemide [Lasix] 20 mg PO DAILY 02/20/18 Amox-Tr/K Cl [Augmentin - 500Mg Tablet] 1 tab PO ONCE@1800 #1 tablet 02/26/18 Prednisone See Taper PO DAILY #21 tablet 02/26/18 This patient is new to me today: No Emergency Visit: Yes ED Registration Date: 02/20/18 Care time: The patient presented to the Emergency Department on the above date and was hospitalized for further evaluation of their emergent condition. Critical Care patient: No - Discharge Referral Referred to [facility] Med P.C.: No
== END 2018-02-26 19:55 | disposition home or self-care (01) | DRG 137 ==
LOC: JER 03:51 → JERBED 08:35 → J8W 19:35
PROVIDERS: ADMIT Internal Medicine; ATTEND Internal Medicine
PROC: 5A09357 Assistance with Respiratory Ventilation, Less than 24 Consecutive Hours, Continuous Positive Airway Pressure (ICD-10-PCS; principal; 2018-02-20)
PROC: 3E0G76Z Introduction of Nutritional Substance into Upper GI, Via Natural or Artificial Opening (ICD-10-PCS; 2018-02-20)
DX: J69.0 Pneumonitis due to inhalation of food and vomit (principal); J96.01 Acute respiratory failure with hypoxia; J96.02 Acute respiratory failure with hypercapnia; H47.619 Cortical blindness, unspecified side of brain; R53.2 Functional quadriplegia; E87.2 Acidosis; F73 Profound intellectual disabilities; Z99.81 Dependence on supplemental oxygen; H47.20 Unspecified optic atrophy; Z93.1 Gastrostomy status; G80.8 Other cerebral palsy; J98.11 Atelectasis; R68.0 Hypothermia, not associated with low environmental temperature; J45.909 Unspecified asthma, uncomplicated; E03.9 Hypothyroidism, unspecified; D72.829 Elevated white blood cell count, unspecified; D72.825 Bandemia; K21.9 Gastro-esophageal reflux disease without esophagitis; G40.909 Epilepsy, unspecified, not intractable, without status epilepticus; H04.123 Dry eye syndrome of bilateral lacrimal glands; Z66 Do not resuscitate
CPT/HCPCS: 36415; 36600; 71045-TC-FY; 80048; 80053; 81003; 81015; 82375; 82550; 82803; 83050; 83605; 83735; 84100; 84443; 84484; 85025; 85027; 86157; 87040; 87086; 87420; 87804; 87899; 93005; 93010; 94640; 94660; 99285-25; J1644; J7030

== ENCOUNTER 2019-05-12 18:51 | Emergency (ER) | payer OTHER ==
--- NOTE | 2019-05-12 19:13 | PDOC ---
Rapid Medical Evaluation Time Seen by Provider: 05/12/19 19:10 Medical Evaluation: Allergies Allergy/AdvReac Type Severity Reaction Status Date / Time levofloxacin [From Levaquin] Allergy Intermediate Verified 02/20/18 03:59 Quinolones Allergy Unknown Verified 02/20/18 03:59 Cephalosporins Allergy Verified 02/20/18 03:59 05/12/19 19:12 Pt c/o: flo pt here for eval. Pt fell out of luis daniel lift during transferring and now with hematoma to forehead and face Pt on brief exam: noted hematoma to forehead and left orbital floor Pt ordered for: head and facial ct pt to proceed to the ED Discharge Disposition - Diagnosis Closed head injury - Referrals - Patient Instructions - Post Discharge Activity
[2019-05-12 19:16] VITALS: TEMP 97.2; BMI 23.4
--- NOTE | 2019-05-12 20:08 | PDOC ---
History of Present Illness - General Chief Complaint: Injury Stated Complaint: FALL Time Seen by Provider: 05/12/19 19:10 History Source: Care Provider, [facility] Records Exam Limitations: Clinical Condition, Physical Impairment - History of Present Illness Initial Comments: Pt is a 48 yo M, with PMH of CP/functional quadriplegia, epilepsy, and congenital developmental disability, who is presenting from [facility] via EMS. [facility] staff states that pt was being transferred from wheelchair lift to bed (~4 feet), when he was dropped onto the ground. Staff was at bedside and state pt had no LOC or vomiting. Pt was immediately sent to the ER for imaging. Pt is non-verbal and cannot provide history or recent ROS. Allergies: fluoroquinolones PCP: Dr. Astudillo Social: No cigarette, alcohol, or drug use. No recent travel or sick contacts. Surgical: G-tube, scoliosis repair. Family: no relevant history. 05/13/19 06:21 Past History - Travel Traveled outside of the country in the last 30 days: No Close contact w/someone who was outside of country & ill: No - Past Medical History Allergies/Adverse Reactions: Allergies Allergy/AdvReac Type Severity Reaction Status Date / Time levofloxacin [From Levaquin] Allergy Intermediate Verified 05/12/19 19:16 Quinolones Allergy Unknown Verified 05/12/19 19:16 Cephalosporins Allergy Verified 05/12/19 19:16 Home Medications: Ambulatory Orders Acetaminophen Suppository [Tylenol .Suppository -] 1 supp MS Q6H PRN 03/22/19 Albuterol 0.083% Nebulizer Yolanda [Ventolin 0.083% Nebulizer Soln -] 1 unit IH Q8H PRN 03/22/19 Bisacodyl Suppository [Dulcolax Suppository -] 1 supp MS Q48H PRN 03/22/19 Clonazepam 0.5 mg GT TID 03/22/19 Diazepam *Pediatric Rectal* [Diastat *Pediatric Rectal Gel* -] 10 mg MS PRN PRN 03/22/19 Divalproex [Depakote -] 3 cap GT BID 03/22/19 Furosemide [Lasix -] 20 mg GT DAILY 03/22/19 Gabapentin 200 mg GT TID 03/22/19 Haloperidol [Haldol -] 0.5 ml SL Q6H PRN 03/22/19 Hyoscyamine Sulfate 1 tab SL Q4H PRN 03/22/19 Lactose-Reduced Food/Fiber [Jevity 1.5 [place] Liquid] 3.5 ml GT DAILY 03/22/19 Levothyroxine [Synthroid -] 50 mcg GT DAILY 03/22/19 Lorazepam 0.25 ml SL Q6H PRN 03/22/19 Morphine [Duramorph] 20 ml SL Q30M PRN 03/22/19 Nutritional Supplement/Fiber [Promote with Fiber Liquid] 830 ml GT DAILY Polyethylene Glycol 3350 [Glycolax] 17 gm GT DAILY 03/22/19 Polyvinyl Alcohol [Artificial Tears] 1 drop TP BID PRN 03/22/19 Prochlorperazine Maleate 5 mg PO Q6H PRN 03/22/19 Sennosides [Senna -] 2 tab GT HS 03/22/19 Anemia: No Asthma: Yes Cancer: No Cardiac Disorders: Yes CVA: No COPD: No CHF: No DVT: No Dementia: Yes (severe MENTAL RETARDATION) Diabetes: Yes GI Disorders: Yes (GERD) Disorders: No HTN: No Hypercholesterolemia: No Liver Disease: No Seizures: Yes Thyroid Disease: Yes (hypothyrosism) - Surgical History Abdominal Surgery: Yes Appendectomy: No Cardiac Surgery: No Cholecystectomy: No GI Surgery: Yes (PEG TUBE PLACEMENT) Lung Surgery: No Neurologic Surgery: No Orthopedic Surgery: No - Immunization History Td Vaccination: Yes TDAP Vaccination: No Immunization Up to Date: Yes - Suicide/Smoking/Psychosocial Hx Smoking Status: No Smoking History: Never smoked Have you smoked in the past 12 months: No Number of Cigarettes Smoked Daily: 0 Information on smoking cessation initiated: No Hx Alcohol Use: No Drug/Substance Use Hx: No Substance Use Type: None Hx Substance Use Treatment: No Trauma Specific PMHX - Complaint Specific PMHX Arthritis: No Back Injury: No Neck Injury: No Hx Sacro Iliac Joint Dysfunction: No Other History: scoliosis Review of Systems - Review of Systems Able to Perform ROS?: No (CP, non-verbal) Is the patient limited Azeri proficient: Yes *Physical Exam - Vital Signs Last Vital Signs Temp Pulse Resp BP Pulse Ox 97.2 F L 67 19 111/67 100 05/12/19 19:13 05/12/19 19:13 05/12/19 19:13 05/12/19 19:13 05/12/19 19:13 - Physical Exam Comments: Vitals stable, pt afebrile. Pt in NAD, thin body habitus. Extremities contracted , obvious hematoma/contusion to L side of forehead. Pt alert with spontaneous eye opening and withdrawal of extremities. Facial expressions intact, pt withdraws all extremities equally. No midline spinal tenderness, step-offs, or crepitus. Scoliosis and contracted. Head normocephalic. Large contusion and hematoma over L forehead and ecchymosis under L eye. Eyes PERRLA, EOMI. Oropharynx without erythema or exudates, no LAD b/l. No nasal congestion. Hearing intact (responds to sounds b/l), no hemotympanum, TMs intact. Clear heart sounds, S1/S2, no JVD, b/l pedal edema, or heart murmur. Clear lung sounds, no respiratory distress, wheezes, crackles, or accessory muscle use. No abdominal or CVA tenderness to palpation, no rebound, no guarding. Abdomen soft, non-distended, and with normoactive bowel sounds. G tube intact with no erythema or drainage surrounding G tube site. Skin without jaundice or rash. 05/13/19 06:11 Medical Decision Making - Medical Decision Making Pt was seen at bedside, also will be seen by attending Dr. Benson. Pt presenting from [facility] via EMS. [facility] staff states that pt was being transferred from wheelchair lift to bed (~4 feet), when he was dropped onto the ground. Staff was at bedside and state pt had no LOC or vomiting. Pt was immediately sent to the ER for imaging. Pt is non-verbal and cannot provide history or recent ROS. Ordered work-up including non-contrast CT head, C-spine, and facial bones to eval for fracture and bleed. Provided 650 mg MS tylenol for improvement of discomfort. Will continue to reassess pt and monitor for symptomatic improvement. CT head, C-spine, and maxillofacial imaging negative for bleed or fracture. Delay with CT upload to PACS/imaging electronic sensing equipment assembler system. Pt can be discharged to [facility]. Strict return precautions provided with care provider understanding. 05/13/19 02:42 05/13/19 06:15 *DC/Admit/Observation/Transfer Diagnosis at time of Disposition: Closed head injury Qualifiers: Encounter type: initial encounter Qualified Code(s): S09.90XA - Unspecified injury of head, initial encounter - Discharge Dispostion Disposition: TRANSFER ACUTE CARE/OTHER HOSP Condition at time of disposition: Good Decision to Admit order: No - Referrals Referrals: Jeremy Astudillo Jr [Non Staff, Medical] - - Patient Instructions Printed Discharge Instructions: How to Prevent Falls, DI for Closed Head Injury Additional Instructions: Please return to the emergency department with any new or worsening symptoms or concerns. The imaging of your head, face, and neck were normal. Please follow up with your primary care physician within 72 hours. - Post Discharge Activity
[2019-05-12] MEDS ORDERED: ACETAMINOPHEN 650 MG SUPP.RECT PR ONE (20:43)
[2019-05-12] MEDS ORDERED: ACETAMINOPHEN 650 MG SUPP.RECT ONE (22:32)
--- NOTE | 2019-05-12 23:30 | PDOC ---
Documentation entered by William Avalos SCRIBE, acting as scribe for Roro Benson DO. Roro Benson DO: This documentation has been prepared by the Bailey paniagua Elijah, SCRIBE, under my direction and personally reviewed by me in its entirety. I confirm that the documentation accurately reflects all work , treatment, procedures, and medical decision making performed by me. Attending Attestation - Resident Resident Name: Maria E Motta - ED Attending Attestation I have performed the following: I have examined & evaluated the patient, The case was reviewed & discussed with the resident, I agree w/resident's findings & plan - HPI HPI: 05/12/19 21:53 Patient is a 48 year old male with a significant PMH of Mental Retardation, Diabetes, GERD, Asthma, Seizures and hypothyroidism who presents to the ED s/p mechanical fall off of Naomy with injuries to the head and face. History obtained from Care provider and [facility] records. Allergies: Levofloxacin, Quinolones, and Cephalosporins Surgical History: PEG Tube Placement - Physicial Exam PE: 05/12/19 21:53 Agree with Resident's Exam - Medical Decision Making 05/12/19 23:30 48-year-old male status post fall from a lift device at a senior living facility with trauma to the head CT scan of the head facial bones and cervical spine Disposition pending results with likely discharge home
[2019-05-13 03:42] VITALS: BP 122/65; PULSE 68
== END 2019-05-13 04:01 | disposition short-term general hospital (02) ==
LOC: JER 18:51
DX: S09.90XA Unspecified injury of head, initial encounter (principal); W18.39XA Other fall on same level, initial encounter; Y93.89 Activity, other specified; Y92.099 Unspecified place in other non-institutional residence as the place of occurrence of the external cause; G82.50 Quadriplegia, unspecified; G40.909 Epilepsy, unspecified, not intractable, without status epilepticus; F79 Unspecified intellectual disabilities; E03.9 Hypothyroidism, unspecified; J45.909 Unspecified asthma, uncomplicated; K21.9 Gastro-esophageal reflux disease without esophagitis
CPT/HCPCS: 70450-TC; 70486-TC; 72125-TC; 99282-25

== ENCOUNTER 2019-06-11 12:07 | Emergency (ER) | payer OTHER ==
[2019-06-11] MEDS ORDERED: SODIUM CHLORIDE 1,000 ML IV STA (12:17)
--- NOTE | 2019-06-11 12:17 | PDOC ---
Rapid Medical Evaluation Chief Complaint: Urinary Catheter Problem Medical Evaluation: Allergies Allergy/AdvReac Type Severity Reaction Status Date / Time levofloxacin [From Levaquin] Allergy Intermediate Verified 05/12/19 19:16 Quinolones Allergy Unknown Verified 05/12/19 19:16 Cephalosporins Allergy Verified 05/12/19 19:16 I have performed a brief in-person evaluation of this patient. The patient presents with a chief complaint of: hx of Mental Retardation, Diabetes, GERD, Asthma, Seizures and hypothyroidism presents with hematuria from noble bag x 3 days; sent by PCP for further evaluation Pertinent physical exam findings: +dark red urine noted in noble bag; patient unable to provide hx I have ordered the following: Labs The patient will proceed to the ED for further evaluation 06/11/19 12:15
[2019-06-11 12:18] VITALS: BMI 28.3
[2019-06-11] MEDS ORDERED: SODIUM CHLORIDE 500 ML IV STA (13:19)
--- NOTE | 2019-06-11 13:20 | PDOC ---
History of Present Illness - General Chief Complaint: Urinary Catheter Problem Stated Complaint: SENT BY PCP Time Seen by Provider: 06/11/19 12:15 History Source: Patient Exam Limitations: No Limitations - History of Present Illness Initial Comments: 06/11/19 13:40 48 yo M with a hx of CP/functional quadriplegia, epilepsy, and congenital developmental disability, who is presenting from [facility] via EMS for red urine for 1 week per [facility]. I spoke to Radha, the nurse at [facility], who states he has had red urine for the past 1 week. He was given a 7 day course of clindamycin for UTI on 05/04/2019 and on 06/03/2019 completing his course. He has been afebrile throughout the week and no tylenol was given. Unable to assess ROS. Allergies: levofloxacin, quinolones, cephalosporins Past History - Past Medical History Allergies/Adverse Reactions: Allergies Allergy/AdvReac Type Severity Reaction Status Date / Time levofloxacin [From Levaquin] Allergy Intermediate Verified 06/11/19 13:22 Quinolones Allergy Unknown Verified 06/11/19 13:22 Cephalosporins Allergy Verified 06/11/19 13:22 Home Medications: Ambulatory Orders Acetaminophen Suppository [Tylenol .Suppository -] 1 supp NM Q6H PRN 03/22/19 Albuterol 0.083% Nebulizer Yolanda [Ventolin 0.083% Nebulizer Soln -] 1 unit IH Q8H PRN 03/22/19 Bisacodyl Suppository [Dulcolax Suppository -] 1 supp NM Q48H PRN 03/22/19 Clonazepam 0.5 mg GT TID 03/22/19 Diazepam *Pediatric Rectal* [Diastat *Pediatric Rectal Gel* -] 10 mg NM PRN PRN 03/22/19 Divalproex [Depakote -] 3 cap GT BID 03/22/19 Furosemide [Lasix -] 20 mg GT DAILY 03/22/19 Gabapentin 200 mg GT TID 03/22/19 Haloperidol [Haldol -] 0.5 ml SL Q6H PRN 03/22/19 Hyoscyamine Sulfate 1 tab SL Q4H PRN 03/22/19 Lactose-Reduced Food/Fiber [Jevity 1.5 Robinson Liquid] 3.5 ml GT DAILY 03/22/19 Levothyroxine [Synthroid -] 50 mcg GT DAILY 03/22/19 Nutritional Supplement/Fiber [Promote with Fiber Liquid] 830 ml GT DAILY Polyethylene Glycol 3350 [Glycolax] 17 gm GT DAILY 03/22/19 Polyvinyl Alcohol [Artificial Tears] 1 drop TP BID PRN 03/22/19 Prochlorperazine Maleate 10 mg PO Q6H PRN 03/22/19 Sennosides [Senna -] 2 tab GT HS 03/22/19 Clindamycin [Cleocin -] 450 mg PO Q6H 06/11/19 Collagenase Clostridium Hist. [Santyl] 1 applic TP DAILY 06/11/19 Anemia: No Asthma: Yes Cancer: No Cardiac Disorders: Yes CVA: No COPD: No CHF: No DVT: No Dementia: Yes (severe MENTAL RETARDATION) Diabetes: Yes GI Disorders: Yes (GERD) Disorders: No HTN: No Hypercholesterolemia: No Liver Disease: No Seizures: Yes Thyroid Disease: Yes (hypothyrosism) - Surgical History Abdominal Surgery: Yes Appendectomy: No Cardiac Surgery: No Cholecystectomy: No GI Surgery: Yes (PEG TUBE PLACEMENT) Lung Surgery: No Neurologic Surgery: No Orthopedic Surgery: No - Immunization History Td Vaccination: Yes TDAP Vaccination: No Immunization Up to Date: Yes - Suicide/Smoking/Psychosocial Hx Smoking Status: No Smoking History: Unknown if ever smoked Have you smoked in the past 12 months: No Number of Cigarettes Smoked Daily: 0 Hx Alcohol Use: No Drug/Substance Use Hx: No Substance Use Type: None Hx Substance Use Treatment: No Review of Systems - Review of Systems Able to Perform ROS?: No (non verbal) *Physical Exam - Vital Signs Last Vital Signs Temp Pulse Resp BP Pulse Ox 71 16 119/71 98 06/11/19 12:12 06/11/19 12:12 06/11/19 12:12 06/11/19 12:12 - Physical Exam General Appearance: Yes: Nourished, Appropriately Dressed. No: Apparent Distress, Intoxicated, Obese HEENT: positive: JUDITH, Pharynx Normal, Hearing Grossly Normal. negative: Pale Conjunctivae, Scleral Icterus (R), Scleral Icterus (L), Pharyngeal Erythema, Tonsillar Exudate, Tonsillar Erythema, Excessive drooling Neck: positive: Trachea midline, Supple. negative: Tender, Lymphadenopathy (R) , Lymphadenopathy (L), Tender lateral, Tender midline Respiratory/Chest: negative: Chest Tender, Lungs Clear (rhonchi), Normal Breath Sounds (rhonchi), Respiratory Distress, Accessory Muscle Use Cardiovascular: positive: Regular Rhythm, Regular Rate, S1, S2. negative: Systolic Murmur Gastrointestinal/Abdominal: positive: Normal Bowel Sounds, Flat, Soft, Other (g tube). negative: Tender Lymphatic: negative: Adenopathy Musculoskeletal: positive: Other (contracted all four extremities. ). negative : Normal Inspection Extremity: positive: Normal Capillary Refill, Other (left ventral 5th MCP ulcer stage 2). negative: Normal Inspection (contracted), Normal Range of Motion, Tender, Swelling, Calf Tenderness Integumentary: positive: Normal Color, Dry, Warm. negative: Diaphoresis Neurologic: positive: Alert ED Treatment Course - LABORATORY CBC & Chemistry Diagram: 06/11/19 13:40 06/11/19 13:40 Medical Decision Making - Medical Decision Making 06/11/19 15:42 48 yo M with a hx of CP/functional quadriplegia, epilepsy, and congenital developmental disability, who is presenting from [facility] via EMS for red urine for 1 week per [facility]. Initial vitals: Initial Vital Signs Pulse Resp BP Pulse Ox 71 16 119/71 98 06/11/19 12:12 06/11/19 12:12 06/11/19 12:12 06/11/19 12:12 Work up: ddx: *DC/Admit/Observation/Transfer Diagnosis at time of Disposition: Hematuria - Discharge Dispostion Disposition: HOME Decision to Admit order: No - Referrals Referrals: [facility] [Provider Group] - Patient Instructions Printed Discharge Instructions: DI for Hematuria Additional Instructions: You were seen in the emergency department for the evaluation of your hematuria. After speaking with your primary medical doctor, you will follow up with your urology appointment at [facility]. Please follow up with your primary medical doctor within 1 day after discharge. Thank you. - Post Discharge Activity
[2019-06-11 13:54] LABS: BASO % 0.4 % (0-2.0); HEMATOCRIT 40.4 % (35.4-49); HEMOGLOBIN 13.7 GM/dL (11.7-16.9); LYMPH % 22.3 % (8-40); MCH 31.3 pg (25.7-33.7); MCHC 33.9 g/dl (32.0-35.9); MEAN CELL VOLUME 92.4 fl (80-96); MEAN PLT VOLUME 9.2 fl (7.5-11.1); MONO % 13.2 % (3.8-10.2); NEUT % 63.1 % (42.8-82.8); PLATELET COUNT 278 K/MM3 (134-434); RBC 4.37 M/mm3 (4.00-5.60); RDW 14.2 % (11.9-15.9); WHITE BLOOD COUNT 10.7 K/mm3 (4.0-10.0)
--- NOTE | 2019-06-11 14:04 | PDOC ---
Documentation entered by Bibiana Palomino SCRIBE, acting as scribe for Jeff Bay MD. Jeff Bay MD: This documentation has been prepared by the Candelario paniagua Xhesika, SCRIBE, under my direction and personally reviewed by me in its entirety. I confirm that the documentation accurately reflects all work, treatment, procedures, and medical decision making performed by me. Attending Attestation - Resident Resident Name: Behzad Ingram - ED Attending Attestation I have performed the following: I have examined & evaluated the patient, The case was reviewed & discussed with the resident, I agree w/resident's findings & plan, Exceptions are as noted - HPI HPI: 06/11/19 13:44 The patient is a 48 year old male, from [facility] with a significant PMH of Mental Retardation, Diabetes, GERD, Asthma, Seizures and hypothyroidism who presents to the emergency department for evaluation of hematuria in noble bag. Pt unable to contribute additional history. Allergies: Levofloxacin, Quinolones, and Cephalosporins Surgical History: PEG Tube Placement - Physicial Exam PE: 06/11/19 13:44 GENERAL: Awake, alert, and fully oriented, in no acute distress. HEAD: No signs of trauma EYES: PERRLA, EOMI, sclera anicteric, conjunctiva clear ENT: Auricles normal inspection, hearing grossly normal, nares patent, oropharynx clear without exudates. Moist mucosa NECK: Nontender, no stepoffs, Normal ROM, supple, no lymphadenopathy, JVD, or masses LUNGS: Breath sounds equal, clear to auscultation bilaterally. No wheezes, and no crackles HEART: Regular rate and rhythm, normal S1 and S2, no murmurs, rubs or gallops ABDOMEN: Soft, nontender, normoactive bowel sounds. No guarding, no rebound. No masses EXTREMITIES: Normal range of motion, no edema. No clubbing or cyanosis. No cords, erythema, or tenderness NEUROLOGICAL: Cranial nerves II through XII intact. 5/5 strength and sensation in all extremities, Normal speech, normal gait, normal cerebellar function SKIN: Warm, Dry, normal turgor, no rashes or lesions noted. : noble in place draining cloudy red urine - Medical Decision Making 06/11/19 14:11 48 M with chronic indwelling noble, presenting with hematuria. Suspect recurrent UTI. - Labs, cultures 06/11/19 16:[address] Astudillo, pt's PMD, pt was sent to this ER in error. Pt was supposed to go to his urologist at [facility] for a routine follow up appointment. There were no acute complaints today requiring evaluation in the ED. Discussed results with Dr. Astudillo, who does not want pt re-started on abx. Agrees with plan to DC back to facility today. Will arrange another f/u appointment with urology.
[2019-06-11 14:17] LABS: ALBUMIN 2.7 g/dl (3.4-5.0); BILIRUBIN,TOTAL 0.3 mg/dL (0.2-1); BLOOD UREA NITROGEN 23.7 mg/dL (7-18); CALCIUM 9.4 mg/dL (8.5-10.1); CREATININE 0.6 mg/dL (0.55-1.3); POTASSIUM 4.5 mmol/L (3.5-5.1); TOT PROT 7.6 g/dl (6.4-8.2)
[2019-06-11] MEDS ORDERED: PIPERACILLIN/TAZOB 3.375 GM 3.375 GM in DEXTROSE 5%-WATER - 50 ML IVPB ONE (14:28)
[2019-06-11] MEDS ORDERED: PIPERACILLIN/TAZOB 3.375 GM 3.375 GM/50 ML BAG IVPB ONE (14:34)
[2019-06-11 15:13] LABS: HYALINE CASTS 2 /lpf (0-8); PH,URINE 8.5 (5.0-8.0); URINE APPEARANCE CLEAR; URINE BACTERIA 0.2 /hpf (NEGATIVE); URINE BILIRUBIN 1+ (NEGATIVE); URINE COLOR RED; URINE GLUCOSE (UA) NEGATIVE (NEGATIVE); URINE KETONE NEGATIVE (NEGATIVE); URINE LEUK ESTERASE 3+ (NEGATIVE); URINE NITRITE POSITIVE (NEGATIVE); URINE PROTEIN 3+ (NEGATIVE); URINE UROBILINOGEN 0.2 mg/dL (0.2-1.0); URINE WBC 5 /hpf (0-5)
[2019-06-11 15:18] LABS: YEAST NONE SEEN (NEGATIVE)
[2019-06-11 15:19] LABS: URINE RBC BLOODY /hpf (0-4)
[2019-06-11 17:50] VITALS: BP 100/51; PULSE 57; TEMP 97.3
--- NOTE | 2019-06-13 09:11 | EKG ---
Test Reason : Blood Pressure : / mmHG Vent. Rate : 067 BPM Atrial Rate : 067 BPM P-R Int : 128 ms QRS Dur : 088 ms QT Int : 358 ms P-R-T Axes : 063 024 253 degrees QTc Int : 378 ms NORMAL SINUS RHYTHM T WAVE ABNORMALITY, CONSIDER ANTEROLATERAL ISCHEMIA ABNORMAL ECG WHEN COMPARED WITH ECG OF 10-APR-2018 09:23, QRS DURATION HAS DECREASED Confirmed by BRIANNA LINDSEY MD ([id number]) on 06/13/2019 9:11:28 AM Referred By: Confirmed By:BRIANNA LINDSEY MD
== END 2019-06-11 21:18 | disposition home or self-care (01) ==
LOC: JER 12:07
PROC: 3E0337Z Introduction of Electrolytic and Water Balance Substance into Peripheral Vein, Percutaneous Approach (ICD-10-PCS; principal; 2019-06-11)
PROC: 3E03329 Introduction of Other Anti-infective into Peripheral Vein, Percutaneous Approach (ICD-10-PCS; 2019-06-11)
DX: R31.9 Hematuria, unspecified (principal); G80.8 Other cerebral palsy; F72 Severe intellectual disabilities; E11.9 Type 2 diabetes mellitus without complications; K21.9 Gastro-esophageal reflux disease without esophagitis; E03.9 Hypothyroidism, unspecified; G40.909 Epilepsy, unspecified, not intractable, without status epilepticus; J45.909 Unspecified asthma, uncomplicated; Z87.440 Personal history of urinary (tract) infections; Z93.1 Gastrostomy status; Z93.50 Unspecified cystostomy status
CPT/HCPCS: 36415; 71045-TC-FY; 80053; 81003; 85025; 87040; 87086; 93005; 93010; 96361; 96365; 99285-25

== ENCOUNTER 2021-02-16 17:24 | Inpatient (IN) | payer OTHER ==
[2021-02-16 20:15] LABS: BASO % 0.6 % (0-2.0); EOS % 1.2 % (0-4.5); HEMATOCRIT 40.9 % (35.4-49); HEMOGLOBIN 13.7 GM/dL (11.7-16.9); LYMPH % 41.9 % (8-40); MCH 31.6 pg (25.7-33.7); MCHC 33.6 g/dl (32.0-35.9); MEAN PLT VOLUME 9.7 fl (7.5-11.1); MONO % 12.9 % (3.8-10.2); NEUT % 43.4 % (42.8-82.8); PLATELET COUNT 210 K/MM3 (134-434); RBC 4.35 M/mm3 (4.00-5.60); RDW 14.3 % (11.9-15.9)
[2021-02-16 20:16] LABS: VENOUS BASE EXCESS 2.4 mmol/L (-2-2); VENOUS O2 SATURATION 29.4 % (70-80); VENOUS PCO2 66.4 mmHg (38-52); VENOUS PH 7.288 (7.310-7.410)
[2021-02-16] MEDS ORDERED: PIPERACILLIN/TAZOB 4.5 GM 4.5 GM in DEXTROSE 5%-WATER 100 ML IVPB ONE (20:17)
[2021-02-16] MEDS ORDERED: VANCOMYCIN 1 GM in D5W (PRE-DOCKED) 1,000 MG/250 ML IVPB ONE (20:22)
[2021-02-16 20:37] LABS: CHLORIDE 108 mmol/L (98-107); SODIUM 132 mmol/L (136-145)
[2021-02-16 20:40] LABS: ALBUMIN 1.8 g/dl (3.4-5.0); BLOOD UREA NITROGEN 11.1 mg/dL (7-18); CO2 26 mmol/L (21-32)
[2021-02-16 20:43] LABS: CREATININE 0.3 mg/dL (0.55-1.3)
[2021-02-16 20:44] LABS: TOT PROT 6.2 g/dl (6.4-8.2)
[2021-02-16 20:45] LABS: ALK PHOS 118 U/L (45-117)
[2021-02-16] MEDS ORDERED: PIPERACILLIN/TAZOB 4.5 GM 4.5 GM/100 ML BAG IVPB ONE (20:45)
[2021-02-16] MEDS ORDERED: VANCOMYCIN 1 GRAM (PRE-DOCKED) 1,000 MG/250 ML BAG IVPB ONE (20:45)
[2021-02-16 20:50] LABS: ANION GAP -3 MMOL/L (8-16); SGOT/AST 128 U/L (15-37); SGPT/ALT 18 U/L (13-61)
[2021-02-16] MEDS ORDERED: DEXTROSE 50%-WATER - 25 GM/50 ML VIAL IVPUSH ONE (20:52)
[2021-02-16 20:53] LABS: GLUCOSE,RANDOM 45 mg/dL (74-106)
[2021-02-16 20:54] LABS: BILIRUBIN,TOTAL < 0.1 mg/dL (0.2-1); CALCIUM 6.4 mg/dL (8.5-10.1)
[2021-02-16] MEDS ORDERED: DEXTROSE 50%-WATER 25 GM/50 ML DISP.SYRIN ONE (20:55)
[2021-02-16 21:07] LABS: EPI CELLS 10 /uL (0-25.1); HYALINE CASTS 3 /uL (0-3.1); PH,URINE 8.5 (5.0-8.0); URINE APPEARANCE CLOUDY; URINE BACTERIA >9,000 /uL (0-1359); URINE BILIRUBIN NEGATIVE (NEGATIVE); URINE COLOR YELLOW; URINE GLUCOSE (UA) NEGATIVE (NEGATIVE); URINE KETONE NEGATIVE (NEGATIVE); URINE LEUK ESTERASE 3+ (NEGATIVE); URINE NITRITE POSITIVE (NEGATIVE); URINE PROTEIN TRACE (NEGATIVE); URINE RBC 25 /uL (0-23.9); URINE WBC 548 /uL (0-25.8)
[2021-02-16] MEDS ORDERED: ENOXAPARIN NA (PORCINE) 40 MG/0.4 ML DISP.SYRIN SQ ONE (21:49)
[2021-02-16] MEDS: ENOXAPARIN NA (PORCINE) 40 MG/0.4 ML DISP.SYRIN SQ SCH (22:36)
[2021-02-16 22:50] LABS: ARTERIAL BLD GAS O2 SATURATION 97.5 mmHg (95-98); ARTERIAL BLOOD GAS BASE EXCESS 0.1 mmol/L (-2-2); ARTERIAL BLOOD GAS PO2 107.2 mmHg (80-100); ARTERIAL BLOOD GAS pH 7.335 (7.350-7.450)
[2021-02-16 22:52] LABS: ALLENS TEST POSITIVE
[2021-02-16] MEDS ORDERED: BISACODYL 10 MG SUPP.RECT RC PRN (23:30)
[2021-02-16] MEDS ORDERED: PROCHLORPERAZINE MALEATE 10 MG GT SCH (23:30)
[2021-02-16] MEDS: DEXTROSE 5%-NORMAL SALINE 1,000 ML IV SCH (23:55)
[2021-02-17] MEDS ORDERED: clonazePAM 0.5 MG TABLET ONE ×4 (01:15→22:14)
[2021-02-17] MEDS ORDERED: PROCHLORPERAZINE MALEATE 5 MG TABLET ONE (01:15)
[2021-02-17] MEDS ORDERED: PROCHLORPERAZINE MALEATE 5 MG TABLET NR PRN (01:20)
[2021-02-17] MEDS: clonazePAM 0.5 MG ODT TABLETS GT SCH ×4 (01:52→22:35)
[2021-02-17] MEDS: DIVALPROEX SODIUM 125 MG SPRINKLE CAPS GT SCH ×3 (01:52→22:36)
[2021-02-17 04:06] LABS: BLOOD UREA NITROGEN 11.1 mg/dL (7-18)
[2021-02-17 04:08] LABS: CREATININE 0.5 mg/dL (0.55-1.3)
[2021-02-17 04:09] LABS: BILIRUBIN,TOTAL 0.4 mg/dL (0.2-1); TOT PROT 7.6 g/dl (6.4-8.2)
[2021-02-17] MEDS: PIPERACILLIN/TAZOB 4.5 GM 4.5 GM in DEXTROSE 5%-WATER 100 ML IVPB SCH ×5 (04:23→21:10)
[2021-02-17] MEDS ORDERED: PIPERACILLIN/TAZOB 4.5 GM 4.5 GM/100 ML BAG IVPB ONE ×3 (04:25→16:06)
[2021-02-17 04:58] LABS: ALBUMIN 2.9 g/dl (3.4-5.0)
[2021-02-17] MEDS ORDERED: GABAPENTIN 100 MG CAPSULE ONE ×3 (06:26→22:14)
[2021-02-17] MEDS: GABAPENTIN 100 MG CAPSULE GT SCH ×3 (06:31→22:36)
[2021-02-17 08:07] LABS: BASO % 0.6 % (0-2.0); EOS % 1.1 % (0-4.5); HEMATOCRIT 39.6 % (35.4-49); HEMOGLOBIN 13.6 GM/dL (11.7-16.9); LYMPH % 36.7 % (8-40); MCH 31.9 pg (25.7-33.7); MCHC 34.3 g/dl (32.0-35.9); MEAN CELL VOLUME 92.9 fl (80-96); MONO % 15.7 % (3.8-10.2); NEUT % 45.9 % (42.8-82.8); PLATELET COUNT 210 K/MM3 (134-434); RBC 4.26 M/mm3 (4.00-5.60); RDW 13.6 % (11.9-15.9); WHITE BLOOD COUNT 7.5 K/mm3 (4.0-10.0)
[2021-02-17 08:22] LABS: ALBUMIN 2.8 g/dl (3.4-5.0); BLOOD UREA NITROGEN 10.1 mg/dL (7-18); MAGNESIUM 2.1 mg/dL (1.8-2.4)
[2021-02-17 08:25] LABS: CREATININE 0.6 mg/dL (0.55-1.3); PHOSPHOROUS 3.7 mg/dL (2.5-4.9)
[2021-02-17 08:26] LABS: BILIRUBIN,TOTAL 0.4 mg/dL (0.2-1)
[2021-02-17 08:28] LABS: TOT PROT 7.7 g/dl (6.4-8.2)
[2021-02-17] MEDS ORDERED: LEVOTHYROXINE NA 25 MCG TABLET (FP) ONE (08:34)
[2021-02-17] MEDS: LEVOTHYROXINE NA 50 MCG TABLET (FP) GT SCH (08:35)
[2021-02-17] MEDS ORDERED: ENOXAPARIN NA (PORCINE) 40 MG/0.4 ML DISP.SYRIN SQ ONE (10:31)
[2021-02-17] MEDS: ENOXAPARIN NA (PORCINE) 40 MG/0.4 ML DISP.SYRIN SQ SCH (10:47)
[2021-02-17] MEDS: FUROSEMIDE 20 MG TABLET (FP) GT SCH (10:47)
[2021-02-17] MEDS: DEXTROSE 5%-NORMAL SALINE 1,000 ML IV SCH (21:51)
[2021-02-17] MEDS ORDERED: SENNOSIDES 8.6 MG GT SCH (22:00)
[2021-02-17] MEDS ORDERED: DIVALPROEX SODIUM 125 MG TABLET E.C. ONE (22:14)
[2021-02-17] MEDS: SENNOSIDES 8.8 MG/5 ML BULK BOTTLE PO SCH (22:36)
[2021-02-18] MEDS ORDERED: PIPERACILLIN/TAZOB 3.375 GM 3.375 GM/50 ML BAG IVPB ONE ×3 (04:19→18:43)
[2021-02-18] MEDS: PIPERACILLIN/TAZOB 3.375 GM 3.375 GM in DEXTROSE 5%-WATER - 50 ML IVPB SCH ×3 (04:19→18:36)
[2021-02-18] MEDS ORDERED: GABAPENTIN 100 MG CAPSULE ONE (06:24)
[2021-02-18] MEDS ORDERED: clonazePAM 0.5 MG TABLET ONE ×2 (06:24→09:57)
[2021-02-18] MEDS ORDERED: LEVOTHYROXINE NA 25 MCG TABLET (FP) ONE (06:24)
[2021-02-18] MEDS: GABAPENTIN 100 MG CAPSULE GT SCH ×2 (06:37→13:57)
[2021-02-18] MEDS: clonazePAM 0.5 MG ODT TABLETS GT SCH ×2 (06:37→13:57)
[2021-02-18] MEDS: PIPERACILLIN/TAZOB 4.5 GM 4.5 GM in DEXTROSE 5%-WATER 100 ML IVPB SCH (06:41)
[2021-02-18] MEDS: LEVOTHYROXINE NA 50 MCG TABLET (FP) GT SCH (07:05)
[2021-02-18 07:49] LABS: BASO % 0.7 % (0-2.0); EOS % 3.5 % (0-4.5); HEMATOCRIT 39.3 % (35.4-49); HEMOGLOBIN 13.3 GM/dL (11.7-16.9); LYMPH % 38.8 % (8-40); MCH 31.9 pg (25.7-33.7); MCHC 33.9 g/dl (32.0-35.9); MEAN CELL VOLUME 93.9 fl (80-96); MEAN PLT VOLUME 8.8 fl (7.5-11.1); MONO % 17.8 % (3.8-10.2); NEUT % 39.2 % (42.8-82.8); PLATELET COUNT 183 K/MM3 (134-434); RBC 4.18 M/mm3 (4.00-5.60); RDW 14.2 % (11.9-15.9)
[2021-02-18 08:12] LABS: ALBUMIN 2.5 g/dl (3.4-5.0); BLOOD UREA NITROGEN 7.3 mg/dL (7-18)
[2021-02-18 08:15] LABS: CREATININE 0.5 mg/dL (0.55-1.3)
[2021-02-18 08:17] LABS: BILIRUBIN,TOTAL 0.5 mg/dL (0.2-1); TOT PROT 6.8 g/dl (6.4-8.2)
[2021-02-18] MEDS ORDERED: ENOXAPARIN NA (PORCINE) 40 MG/0.4 ML DISP.SYRIN SQ ONE (09:57)
[2021-02-18] MEDS: DIVALPROEX SODIUM 125 MG SPRINKLE CAPS GT SCH (10:23)
[2021-02-18] MEDS: FUROSEMIDE 20 MG TABLET (FP) GT SCH (10:23)
[2021-02-18] MEDS: ENOXAPARIN NA (PORCINE) 40 MG/0.4 ML DISP.SYRIN SQ SCH (10:23)
[2021-02-18] MEDS: DEXTROSE 5%-NORMAL SALINE 1,000 ML IV SCH (15:13)
[2021-02-19] MEDS ORDERED: GABAPENTIN 250 MG/5 ML ORAL SOLUTION, 470 ML BOTTLE GT SCH (00:10)
[2021-02-19] MEDS ORDERED: clonazePAM 0.5 MG TABLET ONE ×4 (00:35→21:24)
[2021-02-19] MEDS: DIVALPROEX SODIUM 125 MG SPRINKLE CAPS GT SCH ×3 (01:06→21:54)
[2021-02-19] MEDS: clonazePAM 0.5 MG ODT TABLETS GT SCH (01:06)
[2021-02-19] MEDS: SENNOSIDES 8.8 MG/5 ML BULK BOTTLE PO SCH ×2 (01:06→21:54)
[2021-02-19] MEDS: GABAPENTIN 250 MG/5 ML ORAL SOLUTION, 470 ML BOTTLE GT SCH ×4 (01:06→21:54)
[2021-02-19] MEDS ORDERED: PIPERACILLIN/TAZOB 3.375 GM 3.375 GM/50 ML BAG IVPB ONE ×3 (02:32→18:43)
[2021-02-19] MEDS: PIPERACILLIN/TAZOB 3.375 GM 3.375 GM in DEXTROSE 5%-WATER - 50 ML IVPB SCH ×3 (02:39→19:03)
[2021-02-19] MEDS ORDERED: LEVOTHYROXINE NA 25 MCG TABLET (FP) ONE (06:25)
[2021-02-19] MEDS: LEVOTHYROXINE NA 50 MCG TABLET (FP) GT SCH (06:37)
[2021-02-19] MEDS: clonazePAM 0.5 MG TABLET GT SCH ×3 (06:37→21:54)
[2021-02-19 08:53] LABS: EOS % 4.9 % (0-4.5); HEMATOCRIT 43.6 % (35.4-49); HEMOGLOBIN 14.6 GM/dL (11.7-16.9); LYMPH % 42.8 % (8-40); MCH 31.8 pg (25.7-33.7); MCHC 33.5 g/dl (32.0-35.9); MEAN CELL VOLUME 94.9 fl (80-96); MEAN PLT VOLUME 9.2 fl (7.5-11.1); MONO % 15.9 % (3.8-10.2); NEUT % 35.4 % (42.8-82.8); PLATELET COUNT 167 K/MM3 (134-434); RDW 14.4 % (11.9-15.9); WHITE BLOOD COUNT 3.9 K/mm3 (4.0-10.0)
[2021-02-19 09:31] LABS: CALCIUM 9.6 mg/dL (8.5-10.1)
[2021-02-19 09:32] LABS: ALBUMIN 2.8 g/dl (3.4-5.0); BLOOD UREA NITROGEN 10.4 mg/dL (7-18)
[2021-02-19 09:34] LABS: CREATININE 0.6 mg/dL (0.55-1.3)
[2021-02-19 09:36] LABS: BILIRUBIN,TOTAL 0.5 mg/dL (0.2-1)
[2021-02-19] MEDS ORDERED: ENOXAPARIN NA (PORCINE) 40 MG/0.4 ML DISP.SYRIN SQ ONE (11:16)
[2021-02-19] MEDS: ENOXAPARIN NA (PORCINE) 40 MG/0.4 ML DISP.SYRIN SQ SCH (12:37)
[2021-02-19] MEDS: FUROSEMIDE 20 MG TABLET (FP) GT SCH (12:37)
[2021-02-19] MEDS ORDERED: SODIUM CHLORIDE 1,000 ML IV STA (17:11)
[2021-02-19] MEDS: DEXTROSE 5%-NORMAL SALINE 1,000 ML IV SCH (23:02)
[2021-02-20] MEDS ORDERED: PIPERACILLIN/TAZOBACTAM 3.375 GM VIAL IVPB ONE ×3 (03:31→10:27)
[2021-02-20] MEDS ORDERED: DEXTROSE 5%-WATER - 50 ML IVPB ONE ×3 (03:32→10:28)
[2021-02-20] MEDS: PIPERACILLIN/TAZOB 3.375 GM 3.375 GM in DEXTROSE 5%-WATER - 50 ML IVPB SCH ×3 (04:00→19:19)
[2021-02-20] MEDS: LEVOTHYROXINE NA 50 MCG TABLET (FP) GT SCH (06:43)
[2021-02-20] MEDS: clonazePAM 0.5 MG TABLET GT SCH ×3 (06:44→22:52)
[2021-02-20] MEDS: GABAPENTIN 250 MG/5 ML ORAL SOLUTION, 470 ML BOTTLE GT SCH ×3 (06:44→22:52)
[2021-02-20] MEDS: DIVALPROEX SODIUM 125 MG SPRINKLE CAPS GT SCH ×2 (10:25→22:53)
[2021-02-20] MEDS: ENOXAPARIN NA (PORCINE) 40 MG/0.4 ML DISP.SYRIN SQ SCH (10:25)
[2021-02-20] MEDS: FUROSEMIDE 20 MG TABLET (FP) GT SCH (10:26)
[2021-02-20 11:04] LABS: HEMATOCRIT 39.7 % (35.4-49); HEMOGLOBIN 13.1 GM/dL (11.7-16.9); MCH 31.6 pg (25.7-33.7); MCHC 33.1 g/dl (32.0-35.9); MEAN CELL VOLUME 95.5 fl (80-96); MEAN PLT VOLUME 9.2 fl (7.5-11.1); PLATELET COUNT 142 K/MM3 (134-434); RBC 4.16 M/mm3 (4.00-5.60); RDW 13.7 % (11.9-15.9); WHITE BLOOD COUNT 4.7 K/mm3 (4.0-10.0)
[2021-02-20 11:28] LABS: CALCIUM 8.6 mg/dL (8.5-10.1)
[2021-02-20 11:29] LABS: BLOOD UREA NITROGEN 12.3 mg/dL (7-18)
[2021-02-20 11:32] LABS: CREATININE 0.5 mg/dL (0.55-1.3)
[2021-02-20 11:34] LABS: BILIRUBIN,TOTAL 0.8 mg/dL (0.2-1); TOT PROT 6.3 g/dl (6.4-8.2)
[2021-02-20 11:35] LABS: ALBUMIN 2.2 g/dl (3.4-5.0)
[2021-02-20] MEDS: DEXTROSE 5%-NORMAL SALINE 1,000 ML IV SCH (22:53)
[2021-02-20] MEDS: SENNOSIDES 8.8 MG/5 ML BULK BOTTLE PO SCH (22:53)
[2021-02-21] MEDS ORDERED: PIPERACILLIN/TAZOBACTAM 3.375 GM VIAL IVPB ONE ×3 (01:10→16:14)
[2021-02-21] MEDS ORDERED: DEXTROSE 5%-WATER - 50 ML IVPB ONE ×3 (01:10→16:14)
[2021-02-21] MEDS: PIPERACILLIN/TAZOB 3.375 GM 3.375 GM in DEXTROSE 5%-WATER - 50 ML IVPB SCH ×3 (01:22→17:21)
[2021-02-21] MEDS: DEXTROSE 5%-NORMAL SALINE 1,000 ML IV SCH (05:14)
[2021-02-21] MEDS: clonazePAM 0.5 MG TABLET GT SCH ×3 (05:40→21:08)
[2021-02-21] MEDS: LEVOTHYROXINE NA 50 MCG TABLET (FP) GT SCH (06:15)
[2021-02-21] MEDS: GABAPENTIN 250 MG/5 ML ORAL SOLUTION, 470 ML BOTTLE GT SCH ×3 (06:16→21:08)
[2021-02-21 08:29] LABS: HEMATOCRIT 40.1 % (35.4-49); HEMOGLOBIN 13.4 GM/dL (11.7-16.9); MCH 31.8 pg (25.7-33.7); MCHC 33.5 g/dl (32.0-35.9); MEAN CELL VOLUME 94.9 fl (80-96); MEAN PLT VOLUME 9.4 fl (7.5-11.1); PLATELET COUNT 131 K/MM3 (134-434); RBC 4.22 M/mm3 (4.00-5.60); RDW 14.1 % (11.9-15.9); WHITE BLOOD COUNT 8.5 K/mm3 (4.0-10.0)
[2021-02-21 08:54] LABS: BLOOD UREA NITROGEN 8.5 mg/dL (7-18); CALCIUM 8.3 mg/dL (8.5-10.1)
[2021-02-21 08:55] LABS: ALBUMIN 2.3 g/dl (3.4-5.0)
[2021-02-21 08:58] LABS: CREATININE 0.5 mg/dL (0.55-1.3)
[2021-02-21 08:59] LABS: BILIRUBIN,TOTAL 0.7 mg/dL (0.2-1); TOT PROT 6.3 g/dl (6.4-8.2)
[2021-02-21] MEDS: FUROSEMIDE 20 MG TABLET (FP) GT SCH (09:28)
[2021-02-21] MEDS: ENOXAPARIN NA (PORCINE) 40 MG/0.4 ML DISP.SYRIN SQ SCH (09:28)
[2021-02-21] MEDS: DIVALPROEX SODIUM 125 MG SPRINKLE CAPS GT SCH ×2 (09:32→21:08)
[2021-02-21 12:50] VITALS: BMI 25.5
[2021-02-21] MEDS ORDERED: ALBUTEROL SO4 2.5/IPRATROPIUM 0.5 INH SOL 3 ML VIAL.NEB. NEB ONE (20:10)
[2021-02-21] MEDS: SENNOSIDES 8.8 MG/5 ML BULK BOTTLE PO SCH (21:08)
[2021-02-21] MEDS ORDERED: ACETYLCYSTEINE 20% 200MG/ML 4 ML VIAL *FOR ORAL / INH USE ONLY IH ONE (21:22)
[2021-02-22] MEDS ORDERED: PIPERACILLIN/TAZOBACTAM 3.375 GM VIAL IVPB ONE ×3 (01:01→16:17)
[2021-02-22] MEDS ORDERED: DEXTROSE 5%-WATER - 50 ML IVPB ONE ×3 (01:01→16:18)
[2021-02-22] MEDS: PIPERACILLIN/TAZOB 3.375 GM 3.375 GM in DEXTROSE 5%-WATER - 50 ML IVPB SCH ×3 (01:14→17:01)
[2021-02-22] MEDS: GABAPENTIN 250 MG/5 ML ORAL SOLUTION, 470 ML BOTTLE GT SCH ×3 (06:07→22:15)
[2021-02-22] MEDS: clonazePAM 0.5 MG TABLET GT SCH ×3 (06:07→22:16)
[2021-02-22] MEDS: LEVOTHYROXINE NA 50 MCG TABLET (FP) GT SCH (06:07)
[2021-02-22] MEDS: ENOXAPARIN NA (PORCINE) 40 MG/0.4 ML DISP.SYRIN SQ SCH (09:26)
[2021-02-22] MEDS: FUROSEMIDE 20 MG TABLET (FP) GT SCH (09:26)
[2021-02-22] MEDS: DIVALPROEX SODIUM 125 MG SPRINKLE CAPS GT SCH ×2 (09:26→22:14)
[2021-02-22] MEDS: SENNOSIDES 8.8 MG/5 ML BULK BOTTLE PO SCH (22:13)
[2021-02-23] MEDS ORDERED: DEXTROSE 5%-WATER - 50 ML IVPB ONE ×2 (00:50→08:38)
[2021-02-23] MEDS ORDERED: PIPERACILLIN/TAZOBACTAM 3.375 GM VIAL IVPB ONE ×2 (00:50→08:38)
[2021-02-23] MEDS: PIPERACILLIN/TAZOB 3.375 GM 3.375 GM in DEXTROSE 5%-WATER - 50 ML IVPB SCH ×2 (01:23→09:13)
[2021-02-23] MEDS: LEVOTHYROXINE NA 50 MCG TABLET (FP) GT SCH (06:24)
[2021-02-23] MEDS: GABAPENTIN 250 MG/5 ML ORAL SOLUTION, 470 ML BOTTLE GT SCH ×3 (06:25→22:26)
[2021-02-23] MEDS: clonazePAM 0.5 MG TABLET GT SCH ×3 (06:25→22:24)
[2021-02-23 07:43] LABS: ALBUMIN 2.4 g/dl (3.4-5.0); BILIRUBIN,TOTAL 0.3 mg/dL (0.2-1); BLOOD UREA NITROGEN 12.1 mg/dL (7-18); CALCIUM 9.2 mg/dL (8.5-10.1); CREATININE 0.4 mg/dL (0.55-1.3); TOT PROT 6.8 g/dl (6.4-8.2)
[2021-02-23 07:53] LABS: HEMATOCRIT 37.8 % (35.4-49); HEMOGLOBIN 12.7 GM/dL (11.7-16.9); MCH 32.1 pg (25.7-33.7); MCHC 33.6 g/dl (32.0-35.9); MEAN CELL VOLUME 95.6 fl (80-96); MEAN PLT VOLUME 9.6 fl (7.5-11.1); PLATELET COUNT 100 K/MM3 (134-434); RBC 3.96 M/mm3 (4.00-5.60); WHITE BLOOD COUNT 7.3 K/mm3 (4.0-10.0)
[2021-02-23] MEDS ORDERED: PT OWN MED DRAWER 7, Y5N ONE ×3 (08:39→19:26)
[2021-02-23] MEDS: FUROSEMIDE 20 MG TABLET (FP) GT SCH (09:13)
[2021-02-23] MEDS: ENOXAPARIN NA (PORCINE) 40 MG/0.4 ML DISP.SYRIN SQ SCH (09:13)
[2021-02-23] MEDS: DIVALPROEX SODIUM 125 MG SPRINKLE CAPS GT SCH ×2 (09:13→22:31)
[2021-02-23] MEDS: SENNOSIDES 8.8 MG/5 ML BULK BOTTLE PO SCH (22:29)
[2021-02-24] MEDS: clonazePAM 0.5 MG TABLET GT SCH ×3 (05:48→21:42)
[2021-02-24] MEDS: GABAPENTIN 250 MG/5 ML ORAL SOLUTION, 470 ML BOTTLE GT SCH ×3 (05:49→21:41)
[2021-02-24] MEDS: LEVOTHYROXINE NA 50 MCG TABLET (FP) GT SCH (06:04)
[2021-02-24] MEDS ORDERED: PT OWN MED DRAWER 7, Y5N ONE ×2 (09:14→20:44)
[2021-02-24] MEDS: DIVALPROEX SODIUM 125 MG SPRINKLE CAPS GT SCH ×2 (09:26→21:46)
[2021-02-24] MEDS: FUROSEMIDE 20 MG TABLET (FP) GT SCH (09:26)
[2021-02-24] MEDS: SENNOSIDES 8.8 MG/5 ML BULK BOTTLE PO SCH (21:47)
[2021-02-25] MEDS: GABAPENTIN 250 MG/5 ML ORAL SOLUTION, 470 ML BOTTLE GT SCH ×3 (06:04→22:40)
[2021-02-25] MEDS: LEVOTHYROXINE NA 50 MCG TABLET (FP) GT SCH (06:04)
[2021-02-25] MEDS: clonazePAM 0.5 MG TABLET GT SCH ×3 (06:04→22:10)
[2021-02-25] MEDS ORDERED: PT OWN MED DRAWER 7, Y5N ONE ×2 (08:26→10:56)
[2021-02-25] MEDS: FUROSEMIDE 20 MG TABLET (FP) GT SCH (09:19)
[2021-02-25] MEDS: DIVALPROEX SODIUM 125 MG SPRINKLE CAPS GT SCH ×2 (09:19→22:41)
[2021-02-25] MEDS: SENNOSIDES 8.8 MG/5 ML BULK BOTTLE PO SCH (22:11)
[2021-02-26] MEDS: GABAPENTIN 250 MG/5 ML ORAL SOLUTION, 470 ML BOTTLE GT SCH ×3 (05:11→22:29)
[2021-02-26] MEDS: clonazePAM 0.5 MG TABLET GT SCH ×3 (05:11→22:14)
[2021-02-26] MEDS: LEVOTHYROXINE NA 50 MCG TABLET (FP) GT SCH (06:00)
[2021-02-26] MEDS ORDERED: PT OWN MED DRAWER 7, Y5N ONE ×3 (09:38→22:18)
[2021-02-26] MEDS: FUROSEMIDE 20 MG TABLET (FP) GT SCH (09:39)
[2021-02-26] MEDS: DIVALPROEX SODIUM 125 MG SPRINKLE CAPS GT SCH ×2 (09:40→22:19)
[2021-02-26] MEDS: SENNOSIDES 8.8 MG/5 ML BULK BOTTLE PO SCH (22:19)
[2021-02-27] MEDS ORDERED: PT OWN MED DRAWER 7, Y5N ONE ×3 (05:00→13:44)
[2021-02-27] MEDS: clonazePAM 0.5 MG TABLET GT SCH ×2 (05:02→14:10)
[2021-02-27] MEDS: GABAPENTIN 250 MG/5 ML ORAL SOLUTION, 470 ML BOTTLE GT SCH ×2 (05:03→14:10)
[2021-02-27] MEDS: LEVOTHYROXINE NA 50 MCG TABLET (FP) GT SCH (06:09)
[2021-02-27] MEDS: FUROSEMIDE 20 MG TABLET (FP) GT SCH (09:48)
[2021-02-27] MEDS: DIVALPROEX SODIUM 125 MG SPRINKLE CAPS GT SCH (09:48)
[2021-02-27 13:30] VITALS: BP 103/64; PULSE 74; TEMP 97.9
[2021-02-28] MEDS ORDERED: MULTIVIT-MINERALS ORAL LIQUID GT SCH (10:00)
== END 2021-02-27 17:00 | disposition home or self-care (01) | DRG 720 ==
LOC: JER 17:24 → JERBED 18:13 → J6WEST-2 02-19 23:01 → J4W 02-22 14:37 → J4S 02-25 21:23
PROVIDERS: ADMIT Internal Medicine
DX: A41.52 Sepsis due to Pseudomonas (principal); R60.0 Localized edema; N39.0 Urinary tract infection, site not specified; Z93.1 Gastrostomy status; K21.9 Gastro-esophageal reflux disease without esophagitis; J45.909 Unspecified asthma, uncomplicated; G80.8 Other cerebral palsy; M86.60 Other chronic osteomyelitis, unspecified site; R65.20 Severe sepsis without septic shock; E03.9 Hypothyroidism, unspecified; N36.8 Other specified disorders of urethra; T83.518D Infection and inflammatory reaction due to other urinary catheter, subsequent encounter; N31.9 Neuromuscular dysfunction of bladder, unspecified; T83.89XA Other specified complication of genitourinary prosthetic devices, implants and grafts, initial encounter; D70.9 Neutropenia, unspecified; T68.XXXA Hypothermia, initial encounter; J69.0 Pneumonitis due to inhalation of food and vomit; J96.10 Chronic respiratory failure, unspecified whether with hypoxia or hypercapnia; F72 Severe intellectual disabilities; R00.1 Bradycardia, unspecified
CPT/HCPCS: 36415; 36600; 71045-TC-FY; 76937; 80053; 81003; 82803; 82962; 83735; 84100; 84443; 85025; 85027; 87040; 87070; 87086; 87186; 87205; 87804; 93005; 93010; 93970-TC; 94640; 94761; 99285-25; C9803; U0003; U0005

== ENCOUNTER 2021-05-16 11:17 | Inpatient (IN) | payer OTHER ==
[2021-05-16 13:45] LABS: BASO % 0.6 % (0-2.0); EOS % 1.2 % (0-4.5); HEMATOCRIT 38.3 % (35.4-49); HEMOGLOBIN 12.8 GM/dL (11.7-16.9); MCH 30.2 pg (25.7-33.7); MCHC 33.4 g/dl (32.0-35.9); MEAN CELL VOLUME 90.4 fl (80-96); MONO % 10.2 % (3.8-10.2); RBC 4.23 M/mm3 (4.00-5.60); RDW 14.7 % (11.9-15.9); WHITE BLOOD COUNT 7.6 K/mm3 (4.0-10.0)
[2021-05-16 13:52] LABS: INR 0.9 (0.83-1.09); PROTHROMBIN TIME (PATIENT) 11.1 SEC (9.7-13.0)
[2021-05-16 14:11] LABS: CHLORIDE 90 mmol/L (98-107); PLATELET COUNT 143 10^3/uL (134-434); SODIUM 128 mmol/L (136-145)
[2021-05-16 14:13] LABS: ANION GAP 6 MMOL/L (8-16); BLOOD UREA NITROGEN 15.9 mg/dL (7-18); CO2 32 mmol/L (21-32); GLUCOSE,RANDOM 64 mg/dL (74-106)
[2021-05-16 14:16] LABS: CREATININE 0.4 mg/dL (0.55-1.3); SGOT/AST 49 U/L (15-37); SGPT/ALT 28 U/L (13-61)
[2021-05-16 14:18] LABS: BILIRUBIN,TOTAL 0.3 mg/dL (0.2-1); TOT PROT 8.1 g/dl (6.4-8.2)
[2021-05-16 14:19] LABS: ALK PHOS 184 U/L (45-117)
[2021-05-16] MEDS ORDERED: VANCOMYCIN 1 GM in D5W (PRE-DOCKED) 1,000 MG/250 ML IVPB ONE (17:01)
[2021-05-16] MEDS ORDERED: PIPERACILLIN/TAZOB 3.375 GM 3.375 GM in DEXTROSE 5%-WATER - 50 ML IVPB ONE (17:02)
[2021-05-16] MEDS ORDERED: SODIUM CHLORIDE FOR INHALATION 3 ML VIAL.NEB IH ONE (17:02)
[2021-05-16] MEDS ORDERED: PIPERACILLIN/TAZOB 3.375 GM 3.375 GM/50 ML BAG IVPB ONE (17:13)
[2021-05-16] MEDS ORDERED: VANCOMYCIN 500 MG VIAL (RESTRICTED TO ID ONLY) ONE (17:13)
[2021-05-16] MEDS ORDERED: VANCOMYCIN 1 GRAM (PRE-DOCKED) 1,000 MG/250 ML BAG IVPB ONE (17:57)
[2021-05-16] MEDS ORDERED: SODIUM CHLORIDE 1,000 ML IV SCH (21:30)
[2021-05-16] MEDS ORDERED: diazePAM RECTAL GEL 10 MG KIT (PRE-CALIBRATED) RC PRN (22:29)
[2021-05-16 22:54] LABS: EPI CELLS >36 /uL (0-25.1); HYALINE CASTS 5 /uL (0-3.1); PH,URINE 8.5 (5.0-8.0); URINE APPEARANCE CLEAR; URINE BACTERIA 4426 /uL (0-1359); URINE BILIRUBIN NEGATIVE (NEGATIVE); URINE COLOR YELLOW; URINE GLUCOSE (UA) NEGATIVE (NEGATIVE); URINE KETONE NEGATIVE (NEGATIVE); URINE LEUK ESTERASE 3+ (NEGATIVE); URINE NITRITE NEGATIVE (NEGATIVE); URINE PROTEIN 1+ (NEGATIVE); URINE RBC 15 /uL (0-23.9); URINE WBC 75 /uL (0-25.8)
[2021-05-17] MEDS: AZTREONAM 1 GM in DEXTROSE 5%-WATER - 50 ML IVPB SCH ×2 (02:11→09:37)
[2021-05-17] MEDS ORDERED: DEXTROSE 5%-WATER - 50 ML IVPB ONE ×2 (02:35→09:32)
[2021-05-17] MEDS ORDERED: AZTREONAM 1 GM VIAL (RESTRICTED TO ID) ONE ×2 (02:35→09:32)
[2021-05-17] MEDS: GABAPENTIN 250 MG/5 ML ORAL SOLUTION, 470 ML BOTTLE GT SCH ×4 (03:10→22:01)
[2021-05-17] MEDS: DOCUSATE NA 100 MG/10 ML UNIT-DOSE CUPS GT SCH ×3 (03:10→22:07)
[2021-05-17] MEDS: DIVALPROEX SODIUM 125 MG SPRINKLE CAPS GT SCH ×4 (03:10→22:03)
[2021-05-17] MEDS: clonazePAM 0.5 MG TABLET PEG SCH ×3 (03:10→15:28)
[2021-05-17] MEDS: LEVOTHYROXINE NA 50 MCG TABLET (FP) GT SCH (06:47)
[2021-05-17 08:59] LABS: BASO % 0.6 % (0-2.0); EOS % 1.3 % (0-4.5); HEMATOCRIT 31.6 % (35.4-49); HEMOGLOBIN 10.7 GM/dL (11.7-16.9); MCH 30.7 pg (25.7-33.7); MEAN CELL VOLUME 90.5 fl (80-96); MEAN PLT VOLUME 8.9 fl (7.5-11.1); NEUT % 58.1 % (42.8-82.8); PLATELET COUNT 126 10^3/uL (134-434); RBC 3.49 M/mm3 (4.00-5.60); RDW 14.6 % (11.9-15.9); WHITE BLOOD COUNT 6.7 K/mm3 (4.0-10.0)
[2021-05-17 09:50] LABS: BLOOD UREA NITROGEN 13.1 mg/dL (7-18); CALCIUM 8.5 mg/dL (8.5-10.1)
[2021-05-17 09:51] LABS: ALBUMIN 2.5 g/dl (3.4-5.0)
[2021-05-17 09:53] LABS: PHOSPHOROUS 4.4 mg/dL (2.5-4.9)
[2021-05-17 09:54] LABS: CREATININE 0.5 mg/dL (0.55-1.3)
[2021-05-17 09:55] LABS: BILIRUBIN,TOTAL 0.4 mg/dL (0.2-1); TOT PROT 6.3 g/dl (6.4-8.2)
[2021-05-17] MEDS ORDERED: FUROSEMIDE 20 MG TABLET (FP) GT SCH (10:00)
[2021-05-17] MEDS ORDERED: PT OWN MED DRAWER 7, Y5N ONE ×6 (15:19→20:54)
[2021-05-17] MEDS: clonazePAM 0.25 MG ODT TABLETS SL SCH ×2 (16:23→22:03)
[2021-05-17 16:50] VITALS: BMI 27.6
[2021-05-17] MEDS: AMOX TR/POTASSIUM CLAVULANATE 600 MG/5 ML GT SCH (17:05)
[2021-05-17 17:55] LABS: BASO % 0.8 % (0-2.0); EOS % 1.5 % (0-4.5); HEMATOCRIT 36.4 % (35.4-49); HEMOGLOBIN 12.4 GM/dL (11.7-16.9); LYMPH % 24.2 % (8-40); MCH 30.7 pg (25.7-33.7); MEAN CELL VOLUME 90.3 fl (80-96); MONO % 16.4 % (3.8-10.2); NEUT % 57.1 % (42.8-82.8); PLATELET COUNT 158 10^3/uL (134-434); RBC 4.03 M/mm3 (4.00-5.60); RDW 14.6 % (11.9-15.9); WHITE BLOOD COUNT 6.6 K/mm3 (4.0-10.0)
[2021-05-17] MEDS ORDERED: VANCOMYCIN 1 GM in D5W (PRE-DOCKED) 1,000 MG/250 ML IVPB SCH (18:00)
[2021-05-17] MEDS: SENNOSIDES 8.8 MG/5 ML BULK BOTTLE GT SCH (22:01)
[2021-05-17] MEDS: FAMOTIDINE 40 MG/5 ML ORAL SUSPENSION NGT SCH (22:02)
[2021-05-18] MEDS ORDERED: AZTREONAM 1 GM in DEXTROSE 5%-WATER - 50 ML IVPB SCH (02:00)
[2021-05-18] MEDS: DIVALPROEX SODIUM 125 MG SPRINKLE CAPS GT SCH ×3 (05:51→21:02)
[2021-05-18] MEDS: clonazePAM 0.25 MG ODT TABLETS SL SCH ×3 (05:51→21:02)
[2021-05-18] MEDS: GABAPENTIN 250 MG/5 ML ORAL SOLUTION, 470 ML BOTTLE GT SCH ×3 (05:52→21:03)
[2021-05-18] MEDS: LEVOTHYROXINE NA 50 MCG TABLET (FP) GT SCH (06:04)
[2021-05-18] MEDS ORDERED: PT OWN MED DRAWER 7, Y5N ONE (08:41)
[2021-05-18] MEDS: AMOX TR/POTASSIUM CLAVULANATE 600 MG/5 ML GT SCH (08:48)
[2021-05-18 09:16] LABS: BASO % 0.4 % (0-2.0); EOS % 0.1 % (0-4.5); HEMATOCRIT 35.1 % (35.4-49); HEMOGLOBIN 11.4 GM/dL (11.7-16.9); LYMPH % 10.3 % (8-40); MCH 29.6 pg (25.7-33.7); MCHC 32.4 g/dl (32.0-35.9); MEAN CELL VOLUME 91.5 fl (80-96); MEAN PLT VOLUME 9.2 fl (7.5-11.1); MONO % 11.2 % (3.8-10.2); PLATELET COUNT 165 10^3/uL (134-434); RBC 3.84 M/mm3 (4.00-5.60); RDW 14.4 % (11.9-15.9); WHITE BLOOD COUNT 15.8 K/mm3 (4.0-10.0)
[2021-05-18] MEDS: DOCUSATE NA 100 MG/10 ML UNIT-DOSE CUPS GT SCH ×2 (09:20→21:02)
[2021-05-18] MEDS: FAMOTIDINE 40 MG/5 ML ORAL SUSPENSION NGT SCH ×2 (09:20→21:03)
[2021-05-18 09:42] LABS: ALBUMIN 2.4 g/dl (3.4-5.0); BLOOD UREA NITROGEN 16.4 mg/dL (7-18); MAGNESIUM 2.2 mg/dL (1.8-2.4)
[2021-05-18 09:43] LABS: BILIRUBIN,TOTAL 0.4 mg/dL (0.2-1); TOT PROT 6.5 g/dl (6.4-8.2)
[2021-05-18 09:45] LABS: CREATININE 0.7 mg/dL (0.55-1.3); PHOSPHOROUS 3.8 mg/dL (2.5-4.9)
[2021-05-18] MEDS ORDERED: PIPERACILLIN/TAZOB 3.375 GM 3.375 GM in DEXTROSE 5%-WATER - 50 ML IVPB SCH ×2 (14:00→18:00)
[2021-05-18] MEDS ORDERED: PIPERACILLIN/TAZOBACTAM 3.375 GM VIAL IVPB ONE (17:57)
[2021-05-18] MEDS ORDERED: DEXTROSE 5%-WATER - 50 ML IVPB ONE (17:58)
[2021-05-18] MEDS ORDERED: VANCOMYCIN 1 GM in D5W (PRE-DOCKED) 1,000 MG/250 ML IVPB SCH (18:00)
[2021-05-18] MEDS: PIPERACILLIN/TAZOB 3.375 GM 3.375 GM in DEXTROSE 5%-WATER - 50 ML IVPB SCH (18:05)
[2021-05-18] MEDS: SENNOSIDES 8.8 MG/5 ML BULK BOTTLE GT SCH (21:03)
[2021-05-18] MEDS: HEPARIN NA (PORCINE) 5,000 UNITS/ML 1ML VIAL SQ SCH (21:03)
[2021-05-19] MEDS ORDERED: PIPERACILLIN/TAZOBACTAM 3.375 GM VIAL IVPB ONE ×3 (01:05→17:45)
[2021-05-19] MEDS ORDERED: DEXTROSE 5%-WATER - 50 ML IVPB ONE ×3 (01:06→17:45)
[2021-05-19] MEDS: PIPERACILLIN/TAZOB 3.375 GM 3.375 GM in DEXTROSE 5%-WATER - 50 ML IVPB SCH ×3 (01:18→17:49)
[2021-05-19] MEDS: DIVALPROEX SODIUM 125 MG SPRINKLE CAPS GT SCH ×3 (05:23→21:07)
[2021-05-19] MEDS: HEPARIN NA (PORCINE) 5,000 UNITS/ML 1ML VIAL SQ SCH ×3 (05:23→21:07)
[2021-05-19] MEDS: clonazePAM 0.25 MG ODT TABLETS SL SCH ×3 (05:23→21:07)
[2021-05-19] MEDS: GABAPENTIN 250 MG/5 ML ORAL SOLUTION, 470 ML BOTTLE GT SCH ×3 (05:24→21:12)
[2021-05-19] MEDS: LEVOTHYROXINE NA 50 MCG TABLET (FP) GT SCH (06:01)
[2021-05-19 08:12] LABS: BASO % 0.3 % (0-2.0); EOS % 2.1 % (0-4.5); HEMATOCRIT 33.4 % (35.4-49); HEMOGLOBIN 11.3 GM/dL (11.7-16.9); LYMPH % 26.3 % (8-40); MCH 30.7 pg (25.7-33.7); MCHC 33.8 g/dl (32.0-35.9); MEAN CELL VOLUME 90.9 fl (80-96); MEAN PLT VOLUME 8.8 fl (7.5-11.1); MONO % 15.4 % (3.8-10.2); NEUT % 55.9 % (42.8-82.8); PLATELET COUNT 180 10^3/uL (134-434); RBC 3.67 M/mm3 (4.00-5.60); RDW 14.4 % (11.9-15.9); WHITE BLOOD COUNT 9.7 K/mm3 (4.0-10.0)
[2021-05-19 08:24] LABS: CALCIUM 8.9 mg/dL (8.5-10.1)
[2021-05-19 08:25] LABS: ALBUMIN 2.3 g/dl (3.4-5.0); BLOOD UREA NITROGEN 15.7 mg/dL (7-18); MAGNESIUM 2.2 mg/dL (1.8-2.4)
[2021-05-19 08:28] LABS: CREATININE 0.7 mg/dL (0.55-1.3); PHOSPHOROUS 3.2 mg/dL (2.5-4.9)
[2021-05-19 08:29] LABS: BILIRUBIN,TOTAL 0.4 mg/dL (0.2-1)
[2021-05-19 08:30] LABS: TOT PROT 6.7 g/dl (6.4-8.2)
[2021-05-19] MEDS ORDERED: PT OWN MED DRAWER 7, Y5N ONE ×2 (09:57→13:03)
[2021-05-19] MEDS: DOCUSATE NA 100 MG/10 ML UNIT-DOSE CUPS GT SCH ×2 (09:59→21:08)
[2021-05-19] MEDS: FAMOTIDINE 40 MG/5 ML ORAL SUSPENSION NGT SCH ×2 (10:00→21:09)
[2021-05-19] MEDS: SENNOSIDES 8.8 MG/5 ML BULK BOTTLE GT SCH (21:08)
[2021-05-20] MEDS ORDERED: PIPERACILLIN/TAZOBACTAM 3.375 GM VIAL IVPB ONE ×3 (02:08→17:05)
[2021-05-20] MEDS ORDERED: DEXTROSE 5%-WATER - 50 ML IVPB ONE ×3 (02:09→17:06)
[2021-05-20] MEDS: PIPERACILLIN/TAZOB 3.375 GM 3.375 GM in DEXTROSE 5%-WATER - 50 ML IVPB SCH ×3 (02:34→17:10)
[2021-05-20] MEDS: DIVALPROEX SODIUM 125 MG SPRINKLE CAPS GT SCH ×3 (05:36→22:00)
[2021-05-20] MEDS: HEPARIN NA (PORCINE) 5,000 UNITS/ML 1ML VIAL SQ SCH ×3 (05:36→22:01)
[2021-05-20] MEDS: clonazePAM 0.25 MG ODT TABLETS SL SCH ×3 (05:36→22:00)
[2021-05-20] MEDS: GABAPENTIN 250 MG/5 ML ORAL SOLUTION, 470 ML BOTTLE GT SCH ×3 (05:37→22:07)
[2021-05-20] MEDS: LEVOTHYROXINE NA 50 MCG TABLET (FP) GT SCH (06:21)
[2021-05-20 07:54] LABS: ALBUMIN 2.3 g/dl (3.4-5.0); BLOOD UREA NITROGEN 17.6 mg/dL (7-18); CALCIUM 8.5 mg/dL (8.5-10.1); MAGNESIUM 2.1 mg/dL (1.8-2.4)
[2021-05-20 07:57] LABS: CREATININE 0.7 mg/dL (0.55-1.3)
[2021-05-20 07:58] LABS: BASO % 0.7 % (0-2.0); EOS % 2.5 % (0-4.5); HEMATOCRIT 32.2 % (35.4-49); HEMOGLOBIN 10.5 GM/dL (11.7-16.9); LYMPH % 36.6 % (8-40); MCH 29.8 pg (25.7-33.7); MCHC 32.7 g/dl (32.0-35.9); MEAN CELL VOLUME 91.1 fl (80-96); MEAN PLT VOLUME 8.9 fl (7.5-11.1); MONO % 15.6 % (3.8-10.2); NEUT % 44.6 % (42.8-82.8); PHOSPHOROUS 3.9 mg/dL (2.5-4.9); PLATELET COUNT 209 10^3/uL (134-434); RBC 3.53 M/mm3 (4.00-5.60); RDW 14.3 % (11.9-15.9); WHITE BLOOD COUNT 8.6 K/mm3 (4.0-10.0)
[2021-05-20 07:59] LABS: BILIRUBIN,TOTAL 0.3 mg/dL (0.2-1)
[2021-05-20 08:02] LABS: TOT PROT 6.4 g/dl (6.4-8.2)
[2021-05-20] MEDS ORDERED: PT OWN MED DRAWER 7, Y5N ONE ×4 (09:33→22:11)
[2021-05-20] MEDS: FAMOTIDINE 40 MG/5 ML ORAL SUSPENSION NGT SCH ×2 (09:37→22:03)
[2021-05-20] MEDS: DOCUSATE NA 100 MG/10 ML UNIT-DOSE CUPS GT SCH ×2 (09:38→22:02)
[2021-05-20] MEDS: SENNOSIDES 8.8 MG/5 ML BULK BOTTLE GT SCH (22:04)
[2021-05-21] MEDS ORDERED: PIPERACILLIN/TAZOBACTAM 3.375 GM VIAL IVPB ONE ×3 (01:28→17:10)
[2021-05-21] MEDS ORDERED: DEXTROSE 5%-WATER - 50 ML IVPB ONE ×3 (01:28→17:11)
[2021-05-21] MEDS: PIPERACILLIN/TAZOB 3.375 GM 3.375 GM in DEXTROSE 5%-WATER - 50 ML IVPB SCH ×3 (01:55→17:27)
[2021-05-21] MEDS: GABAPENTIN 250 MG/5 ML ORAL SOLUTION, 470 ML BOTTLE GT SCH ×3 (05:44→21:14)
[2021-05-21] MEDS: DIVALPROEX SODIUM 125 MG SPRINKLE CAPS GT SCH ×3 (05:46→21:12)
[2021-05-21] MEDS: HEPARIN NA (PORCINE) 5,000 UNITS/ML 1ML VIAL SQ SCH ×3 (05:46→21:15)
[2021-05-21] MEDS: clonazePAM 0.25 MG ODT TABLETS SL SCH ×3 (05:46→21:12)
[2021-05-21] MEDS: LEVOTHYROXINE NA 50 MCG TABLET (FP) GT SCH (06:07)
[2021-05-21] MEDS ORDERED: PT OWN MED DRAWER 7, Y5N ONE ×2 (09:54→20:29)
[2021-05-21] MEDS: DOCUSATE NA 100 MG/10 ML UNIT-DOSE CUPS GT SCH ×2 (10:10→21:15)
[2021-05-21] MEDS: FAMOTIDINE 40 MG/5 ML ORAL SUSPENSION NGT SCH ×2 (10:10→21:12)
[2021-05-21] MEDS: SENNOSIDES 8.8 MG/5 ML BULK BOTTLE GT SCH (21:15)
[2021-05-22] MEDS ORDERED: DEXTROSE 5%-WATER - 50 ML IVPB ONE ×2 (01:07→09:47)
[2021-05-22] MEDS ORDERED: PIPERACILLIN/TAZOBACTAM 3.375 GM VIAL IVPB ONE ×2 (01:07→09:47)
[2021-05-22] MEDS: PIPERACILLIN/TAZOB 3.375 GM 3.375 GM in DEXTROSE 5%-WATER - 50 ML IVPB SCH ×2 (01:32→09:52)
[2021-05-22] MEDS: clonazePAM 0.25 MG ODT TABLETS SL SCH ×3 (06:46→21:53)
[2021-05-22] MEDS: HEPARIN NA (PORCINE) 5,000 UNITS/ML 1ML VIAL SQ SCH ×3 (06:46→21:52)
[2021-05-22] MEDS: DIVALPROEX SODIUM 125 MG SPRINKLE CAPS GT SCH ×3 (06:46→21:53)
[2021-05-22] MEDS: GABAPENTIN 250 MG/5 ML ORAL SOLUTION, 470 ML BOTTLE GT SCH ×3 (06:47→21:52)
[2021-05-22] MEDS: LEVOTHYROXINE NA 50 MCG TABLET (FP) GT SCH (06:47)
[2021-05-22] MEDS ORDERED: PT OWN MED DRAWER 7, Y5N ONE ×3 (09:47→20:48)
[2021-05-22] MEDS: DOCUSATE NA 100 MG/10 ML UNIT-DOSE CUPS GT SCH ×2 (09:54→21:53)
[2021-05-22] MEDS: FAMOTIDINE 40 MG/5 ML ORAL SUSPENSION NGT SCH ×2 (09:55→21:53)
[2021-05-22] MEDS: ZINC OXIDE 20% TOPICAL OINTMENT 30 GM TUBE TP SCH ×2 (11:18→21:54)
[2021-05-22] MEDS: AMOX TR/POTASSIUM CLAVULANATE 600 MG/5 ML PO SCH (17:29)
[2021-05-22] MEDS: SENNOSIDES 8.8 MG/5 ML BULK BOTTLE GT SCH (21:53)
[2021-05-23] MEDS ORDERED: PT OWN MED DRAWER 7, Y5N ONE ×3 (05:06→22:55)
[2021-05-23] MEDS: LEVOTHYROXINE NA 50 MCG TABLET (FP) GT SCH (06:04)
[2021-05-23] MEDS: GABAPENTIN 250 MG/5 ML ORAL SOLUTION, 470 ML BOTTLE GT SCH ×3 (06:04→22:52)
[2021-05-23] MEDS: HEPARIN NA (PORCINE) 5,000 UNITS/ML 1ML VIAL SQ SCH ×3 (06:04→22:52)
[2021-05-23] MEDS: DIVALPROEX SODIUM 125 MG SPRINKLE CAPS GT SCH ×3 (06:04→22:52)
[2021-05-23] MEDS: clonazePAM 0.25 MG ODT TABLETS SL SCH ×3 (06:04→22:51)
[2021-05-23] MEDS: AMOX TR/POTASSIUM CLAVULANATE 600 MG/5 ML PO SCH ×2 (08:39→17:53)
[2021-05-23 09:33] LABS: BASO % 0.8 % (0-2.0); EOS % 6.2 % (0-4.5); HEMATOCRIT 27.6 % (35.4-49); HEMOGLOBIN 9.3 GM/dL (11.7-16.9); LYMPH % 48.7 % (8-40); MCH 30.4 pg (25.7-33.7); MCHC 33.7 g/dl (32.0-35.9); MEAN CELL VOLUME 90.2 fl (80-96); MONO % 10.6 % (3.8-10.2); NEUT % 33.7 % (42.8-82.8); PLATELET COUNT 276 10^3/uL (134-434); RBC 3.06 M/mm3 (4.00-5.60); RDW 14.4 % (11.9-15.9); WHITE BLOOD COUNT 8.3 K/mm3 (4.0-10.0)
[2021-05-23 10:30] LABS: ALBUMIN 2.2 g/dl (3.4-5.0); BLOOD UREA NITROGEN 16.3 mg/dL (7-18)
[2021-05-23 10:31] LABS: CALCIUM 8.6 mg/dL (8.5-10.1); MAGNESIUM 2.2 mg/dL (1.8-2.4)
[2021-05-23 10:33] LABS: CREATININE 0.5 mg/dL (0.55-1.3); PHOSPHOROUS 3.8 mg/dL (2.5-4.9)
[2021-05-23 10:34] LABS: BILIRUBIN,TOTAL 0.2 mg/dL (0.2-1); TOT PROT 6.3 g/dl (6.4-8.2)
[2021-05-23] MEDS: ZINC OXIDE 20% TOPICAL OINTMENT 30 GM TUBE TP SCH ×2 (10:39→22:53)
[2021-05-23] MEDS: DOCUSATE NA 100 MG/10 ML UNIT-DOSE CUPS GT SCH ×2 (10:39→22:51)
[2021-05-23] MEDS: FAMOTIDINE 40 MG/5 ML ORAL SUSPENSION NGT SCH ×2 (10:39→22:55)
[2021-05-23] MEDS: SENNOSIDES 8.8 MG/5 ML BULK BOTTLE GT SCH (22:55)
[2021-05-24] MEDS: HEPARIN NA (PORCINE) 5,000 UNITS/ML 1ML VIAL SQ SCH ×3 (06:22→21:01)
[2021-05-24] MEDS: GABAPENTIN 250 MG/5 ML ORAL SOLUTION, 470 ML BOTTLE GT SCH ×3 (06:23→21:01)
[2021-05-24] MEDS: clonazePAM 0.25 MG ODT TABLETS SL SCH ×3 (06:23→21:01)
[2021-05-24] MEDS: LEVOTHYROXINE NA 50 MCG TABLET (FP) GT SCH (06:23)
[2021-05-24] MEDS: DIVALPROEX SODIUM 125 MG SPRINKLE CAPS GT SCH ×3 (06:23→21:01)
[2021-05-24] MEDS: ZINC OXIDE 20% TOPICAL OINTMENT 30 GM TUBE TP SCH ×2 (09:38→21:02)
[2021-05-24] MEDS: DOCUSATE NA 100 MG/10 ML UNIT-DOSE CUPS GT SCH ×2 (09:38→21:01)
[2021-05-24] MEDS: FAMOTIDINE 40 MG/5 ML ORAL SUSPENSION NGT SCH ×2 (09:38→21:01)
[2021-05-24] MEDS: AMOX TR/POTASSIUM CLAVULANATE 600 MG/5 ML PO SCH ×2 (09:59→16:36)
[2021-05-24] MEDS: SENNOSIDES 8.8 MG/5 ML BULK BOTTLE GT SCH (21:00)
[2021-05-25] MEDS: HEPARIN NA (PORCINE) 5,000 UNITS/ML 1ML VIAL SQ SCH ×2 (05:54→14:07)
[2021-05-25] MEDS: DIVALPROEX SODIUM 125 MG SPRINKLE CAPS GT SCH ×2 (05:54→14:08)
[2021-05-25] MEDS: clonazePAM 0.25 MG ODT TABLETS SL SCH ×2 (05:55→14:07)
[2021-05-25] MEDS: GABAPENTIN 250 MG/5 ML ORAL SOLUTION, 470 ML BOTTLE GT SCH ×2 (05:55→14:07)
[2021-05-25] MEDS: LEVOTHYROXINE NA 50 MCG TABLET (FP) GT SCH (06:03)
[2021-05-25] MEDS: AMOX TR/POTASSIUM CLAVULANATE 600 MG/5 ML PO SCH ×2 (09:01→16:33)
[2021-05-25] MEDS: FAMOTIDINE 40 MG/5 ML ORAL SUSPENSION NGT SCH (09:01)
[2021-05-25] MEDS: ZINC OXIDE 20% TOPICAL OINTMENT 30 GM TUBE TP SCH (09:02)
[2021-05-25] MEDS: DOCUSATE NA 100 MG/10 ML UNIT-DOSE CUPS GT SCH (09:02)
[2021-05-25 16:42] VITALS: BP 132/70; PULSE 64; TEMP 98.6
== END 2021-05-25 17:30 | disposition home or self-care (01) | DRG 137 ==
LOC: JER 11:17 → JERBED 17:04 → J8W 23:51
PROVIDERS: ADMIT Internal Medicine; ATTEND Internal Medicine
DX: J69.0 Pneumonitis due to inhalation of food and vomit (principal); J96.01 Acute respiratory failure with hypoxia; E03.9 Hypothyroidism, unspecified; G80.0 Spastic quadriplegic cerebral palsy; E87.1 Hypo-osmolality and hyponatremia; D72.0 Genetic anomalies of leukocytes; Z93.1 Gastrostomy status; K21.9 Gastro-esophageal reflux disease without esophagitis; R04.0 Epistaxis; N39.0 Urinary tract infection, site not specified; H47.619 Cortical blindness, unspecified side of brain; H47.20 Unspecified optic atrophy; F72 Severe intellectual disabilities; G40.909 Epilepsy, unspecified, not intractable, without status epilepticus; J45.909 Unspecified asthma, uncomplicated; M86.672 Other chronic osteomyelitis, left ankle and foot; D72.829 Elevated white blood cell count, unspecified; B96.5 Pseudomonas (aeruginosa) (mallei) (pseudomallei) as the cause of diseases classified elsewhere
CPT/HCPCS: 36415; 71045-TC-FY; 71250-TC; 76937; 80053; 81003; 82550; 83735; 84100; 84436; 84443; 84484; 85025; 85610; 86850; 86900; 86901; 87040; 87081; 87086; 87186; 93005; 93010; 94761; 99285-25; C9803; J1644; U0003; U0005

== ENCOUNTER 2021-08-29 11:18 | Inpatient (IN) | payer OTHER ==
[2021-08-29 11:33] VITALS: BMI 29.7
[2021-08-29] MEDS ORDERED: SODIUM CHLORIDE 1,742 ML IV ONE (12:09)
[2021-08-29 13:01] LABS: EPI CELLS 0 /uL (0-25.1); HYALINE CASTS 2 /uL (0-3.1); URINE APPEARANCE CLEAR; URINE BILIRUBIN NEGATIVE (NEGATIVE); URINE COLOR YELLOW; URINE GLUCOSE (UA) NEGATIVE (NEGATIVE); URINE KETONE NEGATIVE (NEGATIVE); URINE LEUK ESTERASE 3+ (NEGATIVE); URINE NITRITE POSITIVE (NEGATIVE); URINE PROTEIN TRACE (NEGATIVE); URINE RBC 5 /uL (0-23.9); URINE UROBILINOGEN 0.2 mg/dL (0.2-1.0); URINE WBC 202 /uL (0-25.8)
[2021-08-29 13:19] LABS: BASO % 0.5 % (0-2.0); EOS % 1.9 % (0-4.5); HEMATOCRIT 35.2 % (35.4-49); HEMOGLOBIN 11.9 GM/dL (11.7-16.9); LYMPH % 41.3 % (8-40); MCH 30.2 pg (25.7-33.7); MCHC 33.8 g/dl (32.0-35.9); MEAN CELL VOLUME 89.4 fl (80-96); MEAN PLT VOLUME 8.2 fl (7.5-11.1); MONO % 15.6 % (3.8-10.2); NEUT % 40.7 % (42.8-82.8); PLATELET COUNT 147 10^3/uL (134-434); RBC 3.94 M/mm3 (4.00-5.60); RDW 15.5 % (11.9-15.9); WHITE BLOOD COUNT 6.3 K/mm3 (4.0-10.0)
[2021-08-29 13:20] LABS: VENOUS O2 SATURATION 72.7 % (70-80); VENOUS PH 7.395 (7.310-7.410)
[2021-08-29 13:28] LABS: INR 0.97 (0.83-1.09); PROTHROMBIN TIME (PATIENT) 11.3 SEC (9.7-13.0)
[2021-08-29 13:30] LABS: ACTIVATED PTT 33.6 SECONDS (25.2-36.5)
[2021-08-29 13:34] LABS: URINE BACTERIA 2894.4 /uL (0-1359)
[2021-08-29] MEDS ORDERED: PIPERACILLIN/TAZOB 4.5 GM 4.5 GM in DEXTROSE 5%-WATER - 100 ML IVPB ONE (13:36)
[2021-08-29] MEDS ORDERED: VANCOMYCIN 1,000 MG in DEXTROSE 5%-WATER - 250 ML IVPB ONE (13:36)
[2021-08-29] MEDS ORDERED: PIPERACILLIN/TAZOB 4.5 GM 4.5 GM/100 ML BAG IVPB ONE (13:42)
[2021-08-29] MEDS ORDERED: VANCOMYCIN 1 GRAM (PRE-DOCKED) 1,000 MG/250 ML BAG IVPB ONE (13:43)
[2021-08-29 13:46] LABS: CHLORIDE 95 mmol/L (98-107); SODIUM 135 mmol/L (136-145)
[2021-08-29 13:48] LABS: ALBUMIN 2.4 g/dl (3.4-5.0); ANION GAP 8 MMOL/L (8-16); CALCIUM 8.6 mg/dL (8.5-10.1); CO2 32 mmol/L (21-32)
[2021-08-29 13:49] LABS: BLOOD UREA NITROGEN 11.2 mg/dL (7-18); GLUCOSE,RANDOM 71 mg/dL (74-106)
[2021-08-29 13:52] LABS: CREATININE 0.4 mg/dL (0.55-1.3); SGOT/AST 20 U/L (15-37); SGPT/ALT 20 U/L (13-61)
[2021-08-29 13:53] LABS: BILIRUBIN,TOTAL 0.2 mg/dL (0.2-1); TOT PROT 7.4 g/dl (6.4-8.2)
[2021-08-29 13:55] LABS: ALK PHOS 181 U/L (45-117)
[2021-08-29] MEDS ORDERED: SODIUM CHLORIDE 1,000 ML IV STA (14:03)
[2021-08-29] MEDS ORDERED: DEXTROSE 10%-WATER - 1,000 ML IV SCH (14:15)
[2021-08-29] MEDS ORDERED: VANCOMYCIN 1 GM in D5W (PRE-DOCKED) 1,000 MG/250 ML IVPB SCH (17:45)
[2021-08-29] MEDS ORDERED: SODIUM CHLORIDE 1,000 ML IV SCH (18:00)
[2021-08-29] MEDS ORDERED: clonazePAM 0.25 MG ODT TABLETS SL SCH (22:00)
[2021-08-29] MEDS: HEPARIN NA (PORCINE) 5,000 UNITS/ML 1ML VIAL SQ SCH ×2 (23:19→23:26)
[2021-08-29] MEDS: PIPERACILLIN/TAZOB 3.375 GM 3.375 GM in DEXTROSE 5%-WATER - 50 ML IVPB SCH (23:20)
[2021-08-29] MEDS: DIVALPROEX SODIUM 125 MG SPRINKLE CAPS GT SCH (23:26)
[2021-08-30] MEDS: MUPIROCIN 2% TOPICAL OINTMENT 22 GM TUBE TP SCH ×3 (00:05→22:15)
[2021-08-30] MEDS: SODIUM CHLORIDE NASAL SPRAY 44 ML BOTTLE NS SCH ×5 (00:06→22:24)
[2021-08-30] MEDS: GABAPENTIN 250 MG/5 ML ORAL SOLUTION, 470 ML BOTTLE GT SCH ×4 (00:07→22:14)
[2021-08-30] MEDS ORDERED: clonazePAM 0.25 MG ODT TABLETS SL ONE (00:28)
[2021-08-30] MEDS ORDERED: DEXTROSE 5%-WATER - 50 ML IVPB ONE ×2 (01:22→10:10)
[2021-08-30] MEDS ORDERED: PIPERACILLIN/TAZOBACTAM 3.375 GM VIAL IVPB ONE ×2 (01:22→10:10)
[2021-08-30] MEDS: PIPERACILLIN/TAZOB 3.375 GM 3.375 GM in DEXTROSE 5%-WATER - 50 ML IVPB SCH ×5 (01:30→19:47)
[2021-08-30] MEDS: clonazePAM 0.5 MG TABLET GT SCH ×4 (02:45→22:14)
[2021-08-30] MEDS: HEPARIN NA (PORCINE) 5,000 UNITS/ML 1ML VIAL SQ SCH ×2 (05:14→15:16)
[2021-08-30 09:38] LABS: BASO % 0.5 % (0-2.0); EOS % 1.9 % (0-4.5); HEMATOCRIT 36.1 % (35.4-49); LYMPH % 51.2 % (8-40); MCH 30.3 pg (25.7-33.7); MCHC 33.2 g/dl (32.0-35.9); MEAN CELL VOLUME 91.3 fl (80-96); MEAN PLT VOLUME 8.9 fl (7.5-11.1); MONO % 12.2 % (3.8-10.2); NEUT % 34.2 % (42.8-82.8); PLATELET COUNT 140 10^3/uL (134-434); RBC 3.96 M/mm3 (4.00-5.60); RDW 15.4 % (11.9-15.9); WHITE BLOOD COUNT 5.5 K/mm3 (4.0-10.0)
[2021-08-30 09:55] LABS: ALBUMIN 2.3 g/dl (3.4-5.0); CALCIUM 8.9 mg/dL (8.5-10.1); MAGNESIUM 2.1 mg/dL (1.8-2.4)
[2021-08-30 09:58] LABS: BLOOD UREA NITROGEN 6.6 mg/dL (7-18); CREATININE 0.5 mg/dL (0.55-1.3)
[2021-08-30 09:59] LABS: PHOSPHOROUS 4.3 mg/dL (2.5-4.9)
[2021-08-30 10:00] LABS: BILIRUBIN,TOTAL 0.3 mg/dL (0.2-1); TOT PROT 7.2 g/dl (6.4-8.2)
[2021-08-30] MEDS ORDERED: diazePAM RECTAL GEL 10 MG KIT (PRE-CALIBRATED) RC PRN (10:00)
[2021-08-30] MEDS ORDERED: PT OWN MED DRAWER 7, Y5N ONE ×5 (10:10→22:12)
[2021-08-30] MEDS: DIVALPROEX SODIUM 125 MG SPRINKLE CAPS GT SCH ×2 (10:27→22:14)
[2021-08-30] MEDS: SCOPOLAMINE HYDROBROMIDE 1 PATCH PATCH.TD72 TD SCH (10:28)
[2021-08-30] MEDS: FUROSEMIDE 20 MG TABLET (FP) GT SCH (10:28)
[2021-08-30] MEDS ORDERED: VANCOMYCIN 1 GRAM (PRE-DOCKED) 1,000 MG/250 ML BAG IVPB ONE (17:00)
[2021-08-30] MEDS ORDERED: PIPERACILLIN/TAZOB 3.375 GM 3.375 GM in DEXTROSE 5%-WATER - 50 ML IVPB SCH (18:00)
[2021-08-30] MEDS: AMOX TR/POTASSIUM CLAVULANATE 600 MG/5 ML GT SCH (22:15)
[2021-08-31] MEDS: HEPARIN NA (PORCINE) 5,000 UNITS/ML 1ML VIAL SQ SCH ×2 (00:25→05:27)
[2021-08-31] MEDS ORDERED: PT OWN MED DRAWER 7, Y5N ONE ×5 (05:22→22:00)
[2021-08-31] MEDS: GABAPENTIN 250 MG/5 ML ORAL SOLUTION, 470 ML BOTTLE GT SCH ×3 (05:27→22:34)
[2021-08-31] MEDS: SODIUM CHLORIDE NASAL SPRAY 44 ML BOTTLE NS SCH ×3 (05:27→22:34)
[2021-08-31] MEDS: clonazePAM 0.5 MG TABLET GT SCH ×2 (05:27→22:34)
[2021-08-31] MEDS: DIVALPROEX SODIUM 125 MG SPRINKLE CAPS GT SCH ×2 (10:07→22:34)
[2021-08-31] MEDS: FUROSEMIDE 20 MG TABLET (FP) GT SCH (10:07)
[2021-08-31] MEDS: MUPIROCIN 2% TOPICAL OINTMENT 22 GM TUBE TP SCH ×2 (10:07→22:35)
[2021-08-31] MEDS: AMOX TR/POTASSIUM CLAVULANATE 600 MG/5 ML GT SCH ×2 (11:17→17:49)
[2021-08-31] MEDS ORDERED: clonazePAM 0.25 MG ODT TABLETS SL SCH (13:40)
[2021-09-01] MEDS: SODIUM CHLORIDE NASAL SPRAY 44 ML BOTTLE NS SCH ×3 (05:52→21:22)
[2021-09-01] MEDS: clonazePAM 0.5 MG TABLET GT SCH ×3 (05:52→21:20)
[2021-09-01] MEDS: GABAPENTIN 250 MG/5 ML ORAL SOLUTION, 470 ML BOTTLE GT SCH ×3 (05:52→21:30)
[2021-09-01] MEDS: DIVALPROEX SODIUM 125 MG SPRINKLE CAPS GT SCH ×2 (10:36→21:19)
[2021-09-01] MEDS: FUROSEMIDE 20 MG TABLET (FP) GT SCH (10:36)
[2021-09-01] MEDS: ACETAMINOPHEN 650 MG/20.3 ML ORAL SOLUTION (CUPS) GT PRN ×2 (10:36→21:20)
[2021-09-01] MEDS: MUPIROCIN 2% TOPICAL OINTMENT 22 GM TUBE TP SCH ×2 (10:36→21:22)
[2021-09-01] MEDS: AMOX TR/POTASSIUM CLAVULANATE 600 MG/5 ML GT SCH ×2 (10:39→17:55)
[2021-09-01] MEDS ORDERED: PT OWN MED DRAWER 7, Y5N ONE (14:19)
[2021-09-02] MEDS: clonazePAM 0.5 MG TABLET GT SCH ×2 (05:40→15:07)
[2021-09-02] MEDS: SODIUM CHLORIDE NASAL SPRAY 44 ML BOTTLE NS SCH ×2 (05:40→15:11)
[2021-09-02] MEDS: GABAPENTIN 250 MG/5 ML ORAL SOLUTION, 470 ML BOTTLE GT SCH ×2 (05:40→14:57)
[2021-09-02] MEDS ORDERED: PT OWN MED DRAWER 7, Y5N ONE ×2 (10:12→14:43)
[2021-09-02] MEDS: DIVALPROEX SODIUM 125 MG SPRINKLE CAPS GT SCH (10:20)
[2021-09-02] MEDS: AMOX TR/POTASSIUM CLAVULANATE 600 MG/5 ML GT SCH (10:20)
[2021-09-02] MEDS: SCOPOLAMINE HYDROBROMIDE 1 PATCH PATCH.TD72 TD SCH (10:21)
[2021-09-02] MEDS: FUROSEMIDE 20 MG TABLET (FP) GT SCH (10:21)
[2021-09-02] MEDS: MUPIROCIN 2% TOPICAL OINTMENT 22 GM TUBE TP SCH (10:22)
[2021-09-02 15:23] VITALS: BP 124/81; PULSE 72; TEMP 97.4
== END 2021-09-02 15:34 | disposition home or self-care (01) | DRG 137 ==
LOC: JER 11:18 → JERBED 13:54 → J8W 21:57
PROVIDERS: ATTEND Nurse Practitioner Acute Care
PROC: 3E0G76Z Introduction of Nutritional Substance into Upper GI, Via Natural or Artificial Opening (ICD-10-PCS; principal; 2021-08-29)
DX: J69.0 Pneumonitis due to inhalation of food and vomit (principal); G80.8 Other cerebral palsy; F72 Severe intellectual disabilities; E03.9 Hypothyroidism, unspecified; K21.9 Gastro-esophageal reflux disease without esophagitis; J45.909 Unspecified asthma, uncomplicated; T83.518A Infection and inflammatory reaction due to other urinary catheter, initial encounter; G40.909 Epilepsy, unspecified, not intractable, without status epilepticus; H47.619 Cortical blindness, unspecified side of brain; J45.20 Mild intermittent asthma, uncomplicated; R04.0 Epistaxis; R53.2 Functional quadriplegia; Z66 Do not resuscitate; Y84.6 Urinary catheterization as the cause of abnormal reaction of the patient, or of later complication, without mention of misadventure at the time of the procedure
CPT/HCPCS: 36415; 71045-TC-FY; 80053; 81003; 82308; 82803; 83605; 83735; 84100; 84484; 85025; 85610; 85730; 87040; 87086; 87186; 87804; 87899; 93005; 93010; 99285-25; C9803; J1644; U0003; U0005

== ENCOUNTER 2022-04-16 13:10 | Emergency (ER) | payer OTHER ==
[2022-04-16 13:58] VITALS: TEMP 98; BMI 25.6
[2022-04-16 14:59] LABS: BASO % 0.4 % (0-2.0); EOS % 0.7 % (0-4.5); HEMATOCRIT 35.8 % (35.4-49); HEMOGLOBIN 12.2 GM/dL (11.7-16.9); LYMPH % 37.6 % (8-40); MCH 30.9 pg (25.7-33.7); MCHC 34.1 g/dl (32.0-35.9); MEAN CELL VOLUME 90.6 fl (80-96); MEAN PLT VOLUME 8.7 fl (7.5-11.1); MONO % 10.9 % (3.8-10.2); NEUT % 50.4 % (42.8-82.8); PLATELET COUNT 120 10^3/uL (134-434); RBC 3.95 M/mm3 (4.00-5.60); RDW 15.3 % (11.9-15.9); WHITE BLOOD COUNT 6.4 K/mm3 (4.0-10.0)
[2022-04-16 15:01] LABS: INR 0.96 (0.83-1.09)
[2022-04-16 15:03] LABS: ACTIVATED PTT 43.7 SECONDS (25.2-36.5)
[2022-04-16] MEDS ORDERED: LORazepam 2 MG/ML SDV VIAL IVPUSH ONE (16:00)
[2022-04-16] MEDS ORDERED: LORazepam 2 MG/ML SDV VIAL IM ONE (16:06)
[2022-04-17 07:21] VITALS: BP 124/76; PULSE 72
== END 2022-04-16 20:24 | disposition home or self-care (01) ==
LOC: JER 13:10
PROC: 3E023GC Introduction of Other Therapeutic Substance into Muscle, Percutaneous Approach (ICD-10-PCS; principal; 2022-04-16)
DX: R04.0 Epistaxis (principal); D69.6 Thrombocytopenia, unspecified
CPT/HCPCS: 36415; 85025; 85610; 85730; 86850; 86900; 86901; 99284-25

== ENCOUNTER 2022-04-19 13:48 | Inpatient (IN) | payer OTHER ==
[2022-04-19] MEDS ORDERED: DEXTROSE 50%-WATER - 25 GM/50 ML VIAL IVPUSH ONE (14:28)
[2022-04-19] MEDS ORDERED: ACETAMINOPHEN 1000 MG/100 ML BAG IVPB ONE (14:56)
[2022-04-19] MEDS ORDERED: DEXTROSE 50%-WATER 25 GM/50 ML DISP.SYRIN ONE (15:01)
[2022-04-19] MEDS ORDERED: ACETAMINOPHEN INJECTION 100 ML IVPB ONE (15:01)
[2022-04-19] MEDS ORDERED: SODIUM CHLORIDE 0.9% 500 ML INFUS.BAG IV ONE (15:19)
[2022-04-19 15:23] LABS: VENOUS BASE EXCESS 11.1 mmol/L (-2-2); VENOUS O2 SATURATION 64.7 % (70-80); VENOUS PCO2 69.6 mmHg (38-52); VENOUS PH 7.367 (7.310-7.410)
[2022-04-19 15:28] LABS: BASO % 0.2 % (0-2.0); EOS % 0.5 % (0-4.5); HEMOGLOBIN 11.3 GM/dL (11.7-16.9); MCH 30.9 pg (25.7-33.7); MCHC 34.1 g/dl (32.0-35.9); MEAN CELL VOLUME 90.4 fl (80-96); MEAN PLT VOLUME 8.8 fl (7.5-11.1); MONO % 9.5 % (3.8-10.2); NEUT % 66.8 % (42.8-82.8); PLATELET COUNT 141 10^3/uL (134-434); RBC 3.65 M/mm3 (4.00-5.60); RDW 14.9 % (11.9-15.9); WHITE BLOOD COUNT 8.8 K/mm3 (4.0-10.0)
[2022-04-19 15:35] LABS: INR 0.94 (0.83-1.09); PROTHROMBIN TIME (PATIENT) 10.8 SEC (9.7-13.0)
[2022-04-19 15:38] LABS: ACTIVATED PTT 41.9 SECONDS (25.2-36.5)
[2022-04-19 15:50] LABS: ALBUMIN 2.6 g/dl (3.4-5.0); CALCIUM 9.1 mg/dL (8.5-10.1)
[2022-04-19 15:53] LABS: CREATININE 0.5 mg/dL (0.55-1.3)
[2022-04-19 15:55] LABS: BILIRUBIN,TOTAL 0.3 mg/dL (0.2-1); TOT PROT 7.8 g/dl (6.4-8.2)
[2022-04-19 16:14] LABS: EPI CELLS 9 /uL (0-25.1); HYALINE CASTS 4 /uL (0-3.1); PH,URINE 7.5 (5.0-8.0); URINE APPEARANCE CLOUDY; URINE BACTERIA >9,000 /uL (0-1359); URINE BILIRUBIN NEGATIVE (NEGATIVE); URINE COLOR YELLOW; URINE GLUCOSE (UA) 2+ (NEGATIVE); URINE KETONE NEGATIVE (NEGATIVE); URINE LEUK ESTERASE 2+ (NEGATIVE); URINE NITRITE NEGATIVE (NEGATIVE); URINE PROTEIN 1+ (NEGATIVE); URINE RBC 7 /uL (0-23.9); URINE UROBILINOGEN 0.2 mg/dL (0.2-1.0); URINE WBC 498 /uL (0-25.8)
[2022-04-19] MEDS ORDERED: VANCOMYCIN 1 GM in D5W (PRE-DOCKED) 1,000 MG/250 ML IVPB ONE (17:03)
[2022-04-19] MEDS ORDERED: PIPERACILLIN/TAZOB 4.5 GM 4.5 GM in DEXTROSE 5%-WATER 100 ML IVPB ONE (17:03)
[2022-04-19] MEDS ORDERED: PIPERACILLIN/TAZOB 4.5 GM 4.5 GM/100 ML BAG IVPB ONE (17:44)
[2022-04-19] MEDS ORDERED: VANCOMYCIN 1 GRAM (PRE-DOCKED) 1,000 MG/250 ML BAG IVPB ONE (17:45)
[2022-04-19] MEDS ORDERED: SODIUM CHLORIDE 1,000 ML IV SCH (18:15)
[2022-04-19 18:18] LABS: MAGNESIUM 2.1 mg/dL (1.8-2.4)
[2022-04-19 18:26] LABS: N-TERMINAL BNP 66.7 pg/ml (5-125)
[2022-04-19] MEDS ORDERED: ENOXAPARIN NA (PORCINE) 30 MG/0.3 ML DISP.SYRIN SQ ONE (19:15)
[2022-04-19] MEDS ORDERED: DEXAMETHASONE SOD PHOSPHATE 10 MG/1 ML VIAL ONE (19:15)
[2022-04-19] MEDS: ENOXAPARIN NA (PORCINE) 30 MG/0.3 ML DISP.SYRIN SQ SCH (19:32)
[2022-04-19] MEDS: DEXAMETHASONE SOD PHOSPHATE 10 MG/1 ML VIAL IVPUSH SCH (19:34)
[2022-04-19] MEDS: POLYETHYLENE GLYCOL (HEALTHYLAX) 3350 17 GM PACKET GT SCH (22:54)
[2022-04-19] MEDS: DIVALPROEX SODIUM 125 MG SPRINKLE CAPS GT SCH (22:55)
[2022-04-19] MEDS: clonazePAM 0.5 MG TABLET GT SCH (22:55)
[2022-04-19] MEDS: GABAPENTIN 100 MG CAPSULE GT SCH (22:55)
[2022-04-20] MEDS: SENNOSIDES 8.8 MG/5 ML BULK BOTTLE GT SCH ×2 (00:30→21:38)
[2022-04-20] MEDS ORDERED: DEXTROSE 5%-WATER - 50 ML IVPB ONE ×3 (01:44→17:12)
[2022-04-20] MEDS ORDERED: PIPERACILLIN/TAZOBACTAM 3.375 GM VIAL IVPB ONE ×3 (01:44→17:11)
[2022-04-20] MEDS: PIPERACILLIN/TAZOB 3.375 GM 3.375 GM in DEXTROSE 5%-WATER - 50 ML IVPB SCH ×4 (01:46→17:13)
[2022-04-20 02:16] VITALS: BMI 24.1
[2022-04-20] MEDS: LEVOTHYROXINE NA 50 MCG TABLET (FP) GT SCH (06:24)
[2022-04-20] MEDS: GABAPENTIN 100 MG CAPSULE GT SCH ×3 (06:24→21:38)
[2022-04-20] MEDS: clonazePAM 0.5 MG TABLET GT SCH ×3 (06:24→21:38)
[2022-04-20] MEDS ORDERED: VANCOMYCIN 1 GM in D5W (PRE-DOCKED) 1,000 MG/250 ML IVPB SCH ×2 (10:00→18:00)
[2022-04-20] MEDS ORDERED: diazePAM RECTAL GEL 10 MG KIT (PRE-CALIBRATED) RC PRN (10:00)
[2022-04-20 10:07] LABS: HEMATOCRIT 34.1 % (35.4-49); HEMOGLOBIN 11.5 GM/dL (11.7-16.9); MCH 30.8 pg (25.7-33.7); MCHC 33.6 g/dl (32.0-35.9); MEAN CELL VOLUME 91.7 fl (80-96); MEAN PLT VOLUME 9.4 fl (7.5-11.1); PLATELET COUNT 112 10^3/uL (134-434); RBC 3.72 M/mm3 (4.00-5.60); RDW 15.5 % (11.9-15.9); WHITE BLOOD COUNT 8.6 K/mm3 (4.0-10.0)
[2022-04-20] MEDS: DIVALPROEX SODIUM 125 MG SPRINKLE CAPS GT SCH ×2 (10:16→21:38)
[2022-04-20] MEDS: ENOXAPARIN NA (PORCINE) 30 MG/0.3 ML DISP.SYRIN SQ SCH (10:16)
[2022-04-20] MEDS: DEXAMETHASONE SOD PHOSPHATE 10 MG/1 ML VIAL IVPUSH SCH (10:16)
[2022-04-20 10:34] LABS: ALBUMIN 2.4 g/dl (3.4-5.0); BILIRUBIN,TOTAL 0.4 mg/dL (0.2-1); BLOOD UREA NITROGEN 12.8 mg/dL (7-18); CALCIUM 9.4 mg/dL (8.5-10.1); CREATININE 0.5 mg/dL (0.55-1.3); MAGNESIUM 2.1 mg/dL (1.8-2.4); PHOSPHOROUS 3.3 mg/dL (2.5-4.9); TOT PROT 7.5 g/dl (6.4-8.2)
[2022-04-20] MEDS ORDERED: REMDESIVIR 200 MG in SODIUM CHLORIDE 250 ML IVPB ONE (13:30)
[2022-04-20] MEDS: POLYETHYLENE GLYCOL (HEALTHYLAX) 3350 17 GM PACKET GT SCH (21:38)
[2022-04-21] MEDS ORDERED: PIPERACILLIN/TAZOBACTAM 3.375 GM VIAL IVPB ONE ×3 (00:51→21:55)
[2022-04-21] MEDS: PIPERACILLIN/TAZOB 3.375 GM 3.375 GM in DEXTROSE 5%-WATER - 50 ML IVPB SCH ×3 (01:05→21:57)
[2022-04-21] MEDS: clonazePAM 0.5 MG TABLET GT SCH ×3 (06:01→21:42)
[2022-04-21] MEDS: LEVOTHYROXINE NA 50 MCG TABLET (FP) GT SCH (06:01)
[2022-04-21] MEDS: GABAPENTIN 100 MG CAPSULE GT SCH ×3 (06:01→21:42)
[2022-04-21] MEDS ORDERED: DEXTROSE 5%-WATER - 50 ML IVPB ONE ×2 (08:41→21:55)
[2022-04-21] MEDS: DIVALPROEX SODIUM 125 MG SPRINKLE CAPS GT SCH ×2 (09:00→21:42)
[2022-04-21] MEDS: ENOXAPARIN NA (PORCINE) 30 MG/0.3 ML DISP.SYRIN SQ SCH (09:00)
[2022-04-21] MEDS: DEXAMETHASONE SOD PHOSPHATE 10 MG/1 ML VIAL IVPUSH SCH (09:00)
[2022-04-21] MEDS: REMDESIVIR 100 MG in SODIUM CHLORIDE 250 ML IVPB SCH (12:24)
[2022-04-21] MEDS: POLYETHYLENE GLYCOL (HEALTHYLAX) 3350 17 GM PACKET GT SCH (21:42)
[2022-04-21] MEDS: SENNOSIDES 8.8 MG/5 ML BULK BOTTLE GT SCH (21:43)
[2022-04-22] MEDS ORDERED: DEXTROSE 5%-WATER - 50 ML IVPB ONE ×3 (02:50→16:53)
[2022-04-22] MEDS ORDERED: PIPERACILLIN/TAZOBACTAM 3.375 GM VIAL IVPB ONE ×3 (02:50→16:53)
[2022-04-22] MEDS: PIPERACILLIN/TAZOB 3.375 GM 3.375 GM in DEXTROSE 5%-WATER - 50 ML IVPB SCH ×6 (02:50→18:35)
[2022-04-22] MEDS: GABAPENTIN 100 MG CAPSULE GT SCH (06:35)
[2022-04-22] MEDS: clonazePAM 0.5 MG TABLET GT SCH ×3 (06:35→21:53)
[2022-04-22] MEDS: LEVOTHYROXINE NA 50 MCG TABLET (FP) GT SCH (06:35)
[2022-04-22] MEDS ORDERED: ARTIFICIAL TEARS (POLYVINYL ALCOHOL) OPTH DROPS OU PRN (09:17)
[2022-04-22] MEDS: ENOXAPARIN NA (PORCINE) 30 MG/0.3 ML DISP.SYRIN SQ SCH (10:36)
[2022-04-22] MEDS: DEXAMETHASONE SOD PHOSPHATE 10 MG/1 ML VIAL IVPUSH SCH (10:39)
[2022-04-22] MEDS: FUROSEMIDE 40 MG/5 ML UNIT-DOSE CUP GT SCH (10:39)
[2022-04-22] MEDS: DIVALPROEX SODIUM 125 MG SPRINKLE CAPS GT SCH ×2 (10:39→21:52)
[2022-04-22 11:26] LABS: HEMATOCRIT 35.3 % (35.4-49); HEMOGLOBIN 11.6 GM/dL (11.7-16.9); MCH 30.3 pg (25.7-33.7); MCHC 32.8 g/dl (32.0-35.9); MEAN CELL VOLUME 92.3 fl (80-96); MEAN PLT VOLUME 9.8 fl (7.5-11.1); PLATELET COUNT 123 10^3/uL (134-434); RBC 3.82 M/mm3 (4.00-5.60); RDW 15.8 % (11.9-15.9); WHITE BLOOD COUNT 11.8 K/mm3 (4.0-10.0)
[2022-04-22 11:44] LABS: CHLORIDE 100 mmol/L (98-107); SODIUM 138 mmol/L (136-145)
[2022-04-22 11:52] LABS: CALCIUM 9.6 mg/dL (8.5-10.1)
[2022-04-22 11:53] LABS: CO2 32 mmol/L (21-32); GLUCOSE,RANDOM 125 mg/dL (74-106)
[2022-04-22 11:56] LABS: ANION GAP 7 MMOL/L (8-16); CREATININE 0.6 mg/dL (0.55-1.3)
[2022-04-22] MEDS: REMDESIVIR 100 MG in SODIUM CHLORIDE 250 ML IVPB SCH (12:47)
[2022-04-22] MEDS: GABAPENTIN 250 MG/5 ML ORAL SOLUTION, 470 ML BOTTLE GT SCH ×2 (12:59→21:53)
[2022-04-22] MEDS: POTASSIUM CHLORIDE ORAL LIQUID 20 MEQ/15 ML GT SCH ×2 (13:24→20:36)
[2022-04-22] MEDS: KCL 10 MEQ IVPB 10 MEQ/100 ML INFUS.BAG IVPB SCH ×3 (14:36→17:24)
[2022-04-22] MEDS: SENNOSIDES 8.8 MG/5 ML BULK BOTTLE GT SCH (21:52)
[2022-04-22] MEDS: POLYETHYLENE GLYCOL (HEALTHYLAX) 3350 17 GM PACKET GT SCH (21:53)
[2022-04-23] MEDS ORDERED: PIPERACILLIN/TAZOBACTAM 3.375 GM VIAL IVPB ONE ×3 (00:41→18:01)
[2022-04-23] MEDS ORDERED: DEXTROSE 5%-WATER - 50 ML IVPB ONE ×3 (00:41→18:01)
[2022-04-23] MEDS: PIPERACILLIN/TAZOB 3.375 GM 3.375 GM in DEXTROSE 5%-WATER - 50 ML IVPB SCH ×3 (01:03→18:03)
[2022-04-23] MEDS: GABAPENTIN 250 MG/5 ML ORAL SOLUTION, 470 ML BOTTLE GT SCH ×3 (05:22→21:34)
[2022-04-23] MEDS: clonazePAM 0.5 MG TABLET GT SCH ×3 (05:22→21:32)
[2022-04-23] MEDS: LEVOTHYROXINE NA 50 MCG TABLET (FP) GT SCH (06:11)
[2022-04-23 08:35] LABS: HEMATOCRIT 36.3 % (35.4-49); HEMOGLOBIN 11.9 GM/dL (11.7-16.9); MCH 30.3 pg (25.7-33.7); MCHC 32.7 g/dl (32.0-35.9); MEAN CELL VOLUME 92.6 fl (80-96); MEAN PLT VOLUME 9.9 fl (7.5-11.1); PLATELET COUNT 136 10^3/uL (134-434); RBC 3.92 M/mm3 (4.00-5.60); RDW 16.1 % (11.9-15.9); WHITE BLOOD COUNT 11.7 K/mm3 (4.0-10.0)
[2022-04-23 09:08] LABS: CALCIUM 9.5 mg/dL (8.5-10.1)
[2022-04-23 09:09] LABS: ALBUMIN 2.5 g/dl (3.4-5.0); MAGNESIUM 2.3 mg/dL (1.8-2.4)
[2022-04-23 09:12] LABS: CREATININE 0.6 mg/dL (0.55-1.3); PHOSPHOROUS 1.9 mg/dL (2.5-4.9)
[2022-04-23 09:13] LABS: BILIRUBIN,TOTAL 0.3 mg/dL (0.2-1)
[2022-04-23 09:14] LABS: TOT PROT 7.1 g/dl (6.4-8.2)
[2022-04-23] MEDS: DEXAMETHASONE SOD PHOSPHATE 10 MG/1 ML VIAL IVPUSH SCH (09:53)
[2022-04-23] MEDS: ENOXAPARIN NA (PORCINE) 30 MG/0.3 ML DISP.SYRIN SQ SCH (09:54)
[2022-04-23 09:59] LABS: ARTERIAL BLD GAS O2 SATURATION 91.3 % (95-98); ARTERIAL BLOOD GAS BASE EXCESS 9.5 mmol/L (-2-2); ARTERIAL BLOOD GAS PO2 58.5 mmHg (80-100); ARTERIAL BLOOD GAS pH 7.458 (7.350-7.450)
[2022-04-23] MEDS ORDERED: NAPH,MB-DB/K PH,MBDB POWDER PACKET GT ONE (10:00)
[2022-04-23] MEDS: FUROSEMIDE 40 MG/5 ML UNIT-DOSE CUP GT SCH (11:06)
[2022-04-23] MEDS: DIVALPROEX SODIUM 125 MG SPRINKLE CAPS GT SCH (12:47)
[2022-04-23] MEDS: REMDESIVIR 100 MG in SODIUM CHLORIDE 250 ML IVPB SCH (12:47)
[2022-04-23] MEDS: VALPROATE SODIUM 250 MG/5 ML UNIT DOSE CUP GT SCH ×2 (12:53→21:33)
[2022-04-23] MEDS: POLYETHYLENE GLYCOL (HEALTHYLAX) 3350 17 GM PACKET GT SCH (21:33)
[2022-04-23] MEDS: SENNOSIDES 8.8 MG/5 ML BULK BOTTLE GT SCH (21:36)
[2022-04-24] MEDS ORDERED: PIPERACILLIN/TAZOBACTAM 3.375 GM VIAL IVPB ONE ×3 (01:25→17:34)
[2022-04-24] MEDS: PIPERACILLIN/TAZOB 3.375 GM 3.375 GM in DEXTROSE 5%-WATER - 50 ML IVPB SCH ×3 (01:42→17:38)
[2022-04-24] MEDS: GABAPENTIN 250 MG/5 ML ORAL SOLUTION, 470 ML BOTTLE GT SCH ×3 (05:23→21:32)
[2022-04-24] MEDS: clonazePAM 0.5 MG TABLET GT SCH ×3 (05:23→21:31)
[2022-04-24] MEDS: LEVOTHYROXINE NA 50 MCG TABLET (FP) GT SCH (06:17)
[2022-04-24 08:40] LABS: HEMATOCRIT 35.3 % (35.4-49); HEMOGLOBIN 11.7 GM/dL (11.7-16.9); MCH 30.8 pg (25.7-33.7); MCHC 33.2 g/dl (32.0-35.9); MEAN CELL VOLUME 92.6 fl (80-96); PLATELET COUNT 138 10^3/uL (134-434); RBC 3.81 M/mm3 (4.00-5.60); WHITE BLOOD COUNT 9.3 K/mm3 (4.0-10.0)
[2022-04-24 08:56] LABS: ALBUMIN 2.2 g/dl (3.4-5.0); BLOOD UREA NITROGEN 20.6 mg/dL (7-18); CALCIUM 9.1 mg/dL (8.5-10.1)
[2022-04-24 08:59] LABS: CREATININE 0.5 mg/dL (0.55-1.3); PHOSPHOROUS 2.6 mg/dL (2.5-4.9)
[2022-04-24 09:01] LABS: BILIRUBIN,TOTAL 0.4 mg/dL (0.2-1); TOT PROT 6.5 g/dl (6.4-8.2)
[2022-04-24] MEDS ORDERED: DEXTROSE 5%-WATER - 50 ML IVPB ONE ×2 (10:34→17:34)
[2022-04-24] MEDS: VALPROATE SODIUM 250 MG/5 ML UNIT DOSE CUP GT SCH ×2 (10:40→21:29)
[2022-04-24] MEDS: DEXAMETHASONE SOD PHOSPHATE 10 MG/1 ML VIAL IVPUSH SCH (10:40)
[2022-04-24] MEDS: ENOXAPARIN NA (PORCINE) 30 MG/0.3 ML DISP.SYRIN SQ SCH (10:40)
[2022-04-24] MEDS: FUROSEMIDE 40 MG/5 ML UNIT-DOSE CUP GT SCH (10:41)
[2022-04-24] MEDS ORDERED: ALBUTEROL SO4 0.083% IH SOL 2.5 MG/3 ML VIAL.NEB. NEB PRN (14:24)
[2022-04-24] MEDS: REMDESIVIR 100 MG in SODIUM CHLORIDE 250 ML IVPB SCH (14:44)
[2022-04-24] MEDS: ALBUTEROL SO4 0.083% IH SOL 2.5 MG/3 ML VIAL.NEB. NEB SCH ×2 (16:25→19:34)
[2022-04-24] MEDS: ACETYLCYSTEINE 20% 200MG/ML 30 ML VIAL *FOR ORAL / INH USE ONLY NEB SCH ×3 (16:25→19:34)
[2022-04-24] MEDS: SENNOSIDES 8.8 MG/5 ML BULK BOTTLE GT SCH (21:30)
[2022-04-24] MEDS: POLYETHYLENE GLYCOL (HEALTHYLAX) 3350 17 GM PACKET GT SCH (21:31)
[2022-04-25] MEDS ORDERED: DEXTROSE 5%-WATER - 50 ML IVPB ONE ×3 (00:56→17:07)
[2022-04-25] MEDS ORDERED: PIPERACILLIN/TAZOBACTAM 3.375 GM VIAL IVPB ONE ×3 (00:56→17:07)
[2022-04-25] MEDS: PIPERACILLIN/TAZOB 3.375 GM 3.375 GM in DEXTROSE 5%-WATER - 50 ML IVPB SCH ×3 (01:29→17:27)
[2022-04-25] MEDS: clonazePAM 0.5 MG TABLET GT SCH ×3 (05:43→23:27)
[2022-04-25] MEDS: GABAPENTIN 250 MG/5 ML ORAL SOLUTION, 470 ML BOTTLE GT SCH ×3 (05:44→23:27)
[2022-04-25] MEDS: LEVOTHYROXINE NA 50 MCG TABLET (FP) GT SCH (06:11)
[2022-04-25 08:11] LABS: HEMATOCRIT 32.3 % (35.4-49); HEMOGLOBIN 10.8 GM/dL (11.7-16.9); MCH 30.9 pg (25.7-33.7); MCHC 33.4 g/dl (32.0-35.9); MEAN CELL VOLUME 92.4 fl (80-96); MEAN PLT VOLUME 9.3 fl (7.5-11.1); PLATELET COUNT 130 10^3/uL (134-434); WHITE BLOOD COUNT 7.8 K/mm3 (4.0-10.0)
[2022-04-25 08:38] LABS: ALBUMIN 2.1 g/dl (3.4-5.0); CREATININE 0.4 mg/dL (0.55-1.3)
[2022-04-25 08:40] LABS: BILIRUBIN,TOTAL 0.4 mg/dL (0.2-1); TOT PROT 6.3 g/dl (6.4-8.2)
[2022-04-25 08:41] LABS: CALCIUM 9.3 mg/dL (8.5-10.1)
[2022-04-25] MEDS: ALBUTEROL SO4 0.083% IH SOL 2.5 MG/3 ML VIAL.NEB. NEB SCH ×4 (08:45→20:50)
[2022-04-25] MEDS: ACETYLCYSTEINE 20% 200MG/ML 4 ML VIAL *FOR ORAL / INH USE ONLY NEB SCH ×4 (08:45→20:50)
[2022-04-25] MEDS: DEXAMETHASONE SOD PHOSPHATE 10 MG/1 ML VIAL IVPUSH SCH (11:07)
[2022-04-25] MEDS: VALPROATE SODIUM 250 MG/5 ML UNIT DOSE CUP GT SCH ×2 (11:08→23:27)
[2022-04-25] MEDS: ENOXAPARIN NA (PORCINE) 30 MG/0.3 ML DISP.SYRIN SQ SCH (11:08)
[2022-04-25] MEDS: FUROSEMIDE 40 MG/5 ML UNIT-DOSE CUP GT SCH (11:08)
[2022-04-25] MEDS: SCOPOLAMINE HYDROBROMIDE 1 PATCH PATCH.TD72 TD SCH (15:06)
[2022-04-25] MEDS: POLYETHYLENE GLYCOL (HEALTHYLAX) 3350 17 GM PACKET GT SCH (23:27)
[2022-04-25] MEDS: SENNOSIDES 8.8 MG/5 ML BULK BOTTLE GT SCH (23:28)
[2022-04-26] MEDS ORDERED: PIPERACILLIN/TAZOBACTAM 3.375 GM VIAL IVPB ONE ×3 (01:52→17:15)
[2022-04-26] MEDS ORDERED: DEXTROSE 5%-WATER - 50 ML IVPB ONE ×3 (01:53→17:15)
[2022-04-26] MEDS: PIPERACILLIN/TAZOB 3.375 GM 3.375 GM in DEXTROSE 5%-WATER - 50 ML IVPB SCH ×3 (02:15→17:20)
[2022-04-26] MEDS: GABAPENTIN 250 MG/5 ML ORAL SOLUTION, 470 ML BOTTLE GT SCH ×2 (05:55→13:47)
[2022-04-26] MEDS: clonazePAM 0.5 MG TABLET GT SCH ×3 (05:55→21:37)
[2022-04-26] MEDS: LEVOTHYROXINE NA 50 MCG TABLET (FP) GT SCH (06:00)
[2022-04-26] MEDS: ACETYLCYSTEINE 20% 200MG/ML 4 ML VIAL *FOR ORAL / INH USE ONLY NEB SCH ×4 (08:25→21:40)
[2022-04-26] MEDS: ALBUTEROL SO4 0.083% IH SOL 2.5 MG/3 ML VIAL.NEB. NEB SCH ×4 (08:25→21:40)
[2022-04-26 09:55] LABS: HEMATOCRIT 32.9 % (35.4-49); HEMOGLOBIN 11.1 GM/dL (11.7-16.9); MCH 31.1 pg (25.7-33.7); MCHC 33.9 g/dl (32.0-35.9); MEAN CELL VOLUME 91.7 fl (80-96); MEAN PLT VOLUME 9.3 fl (7.5-11.1); PLATELET COUNT 164 10^3/uL (134-434); RBC 3.58 M/mm3 (4.00-5.60); RDW 16.3 % (11.9-15.9)
[2022-04-26 10:18] LABS: BLOOD UREA NITROGEN 28.3 mg/dL (7-18); CALCIUM 9.3 mg/dL (8.5-10.1); MAGNESIUM 2.3 mg/dL (1.8-2.4)
[2022-04-26 10:20] LABS: BILIRUBIN,TOTAL 0.7 mg/dL (0.2-1)
[2022-04-26 10:21] LABS: PHOSPHOROUS 5.1 mg/dL (2.5-4.9)
[2022-04-26 10:22] LABS: CREATININE 0.5 mg/dL (0.55-1.3)
[2022-04-26 10:23] LABS: TOT PROT 6.3 g/dl (6.4-8.2)
[2022-04-26] MEDS: FUROSEMIDE 40 MG/5 ML UNIT-DOSE CUP GT SCH (10:29)
[2022-04-26] MEDS: DEXAMETHASONE SOD PHOSPHATE 10 MG/1 ML VIAL IVPUSH SCH (10:29)
[2022-04-26] MEDS: VALPROATE SODIUM 250 MG/5 ML UNIT DOSE CUP GT SCH ×2 (10:29→21:37)
[2022-04-26] MEDS: ENOXAPARIN NA (PORCINE) 30 MG/0.3 ML DISP.SYRIN SQ SCH (10:29)
[2022-04-26] MEDS: POLYETHYLENE GLYCOL (HEALTHYLAX) 3350 17 GM PACKET GT SCH (21:36)
[2022-04-26] MEDS: SENNOSIDES 8.8 MG/5 ML BULK BOTTLE GT SCH (21:36)
[2022-04-27] MEDS: GABAPENTIN 250 MG/5 ML ORAL SOLUTION, 470 ML BOTTLE GT SCH ×4 (01:00→21:58)
[2022-04-27] MEDS ORDERED: PIPERACILLIN/TAZOBACTAM 3.375 GM VIAL IVPB ONE ×3 (02:53→17:47)
[2022-04-27] MEDS: PIPERACILLIN/TAZOB 3.375 GM 3.375 GM in DEXTROSE 5%-WATER - 50 ML IVPB SCH ×3 (02:57→17:54)
[2022-04-27] MEDS: clonazePAM 0.5 MG TABLET GT SCH ×3 (06:27→21:58)
[2022-04-27] MEDS: LEVOTHYROXINE NA 50 MCG TABLET (FP) GT SCH (06:27)
[2022-04-27] MEDS ORDERED: INSULIN (NOVOLOG) ASPART 100 UNITS/ML 10ML VIAL ONE (07:12)
[2022-04-27] MEDS: ALBUTEROL SO4 0.083% IH SOL 2.5 MG/3 ML VIAL.NEB. NEB SCH ×4 (08:05→20:50)
[2022-04-27] MEDS: ACETYLCYSTEINE 20% 200MG/ML 4 ML VIAL *FOR ORAL / INH USE ONLY NEB SCH ×4 (08:05→20:50)
[2022-04-27] MEDS ORDERED: DEXTROSE 5%-WATER - 50 ML IVPB ONE ×2 (09:04→17:47)
[2022-04-27] MEDS: ENOXAPARIN NA (PORCINE) 30 MG/0.3 ML DISP.SYRIN SQ SCH (09:19)
[2022-04-27] MEDS: DEXAMETHASONE SOD PHOSPHATE 10 MG/1 ML VIAL IVPUSH SCH (09:19)
[2022-04-27] MEDS: VALPROATE SODIUM 250 MG/5 ML UNIT DOSE CUP GT SCH ×2 (09:20→21:57)
[2022-04-27] MEDS: FUROSEMIDE 40 MG/5 ML UNIT-DOSE CUP GT SCH (09:20)
[2022-04-27 13:00] LABS: HEMATOCRIT 34.5 % (35.4-49); HEMOGLOBIN 11.8 GM/dL (11.7-16.9); MCH 31.2 pg (25.7-33.7); MCHC 34.2 g/dl (32.0-35.9); MEAN CELL VOLUME 91.2 fl (80-96); MEAN PLT VOLUME 9.2 fl (7.5-11.1); PLATELET COUNT 214 10^3/uL (134-434); RBC 3.79 M/mm3 (4.00-5.60); WHITE BLOOD COUNT 9.6 K/mm3 (4.0-10.0)
[2022-04-27 13:22] LABS: CALCIUM 9.5 mg/dL (8.5-10.1)
[2022-04-27 13:23] LABS: ALBUMIN 2.2 g/dl (3.4-5.0); BLOOD UREA NITROGEN 30.2 mg/dL (7-18)
[2022-04-27 13:26] LABS: CREATININE 0.7 mg/dL (0.55-1.3)
[2022-04-27 13:27] LABS: BILIRUBIN,TOTAL 0.3 mg/dL (0.2-1); TOT PROT 6.9 g/dl (6.4-8.2)
[2022-04-27 14:04] LABS: ANISOCYTOSIS 1+; MACROCYTOSIS 1+
[2022-04-27] MEDS: POLYETHYLENE GLYCOL (HEALTHYLAX) 3350 17 GM PACKET GT SCH (21:58)
[2022-04-27] MEDS: SENNOSIDES 8.8 MG/5 ML BULK BOTTLE GT SCH (21:58)
[2022-04-28] MEDS ORDERED: PIPERACILLIN/TAZOBACTAM 3.375 GM VIAL IVPB ONE ×2 (01:15→10:53)
[2022-04-28] MEDS ORDERED: DEXTROSE 5%-WATER - 50 ML IVPB ONE (01:16)
[2022-04-28] MEDS: PIPERACILLIN/TAZOB 3.375 GM 3.375 GM in DEXTROSE 5%-WATER - 50 ML IVPB SCH ×2 (01:19→11:00)
[2022-04-28] MEDS: clonazePAM 0.5 MG TABLET GT SCH ×3 (06:29→21:57)
[2022-04-28] MEDS: GABAPENTIN 250 MG/5 ML ORAL SOLUTION, 470 ML BOTTLE GT SCH ×3 (06:29→21:58)
[2022-04-28] MEDS: LEVOTHYROXINE NA 50 MCG TABLET (FP) GT SCH (06:29)
[2022-04-28] MEDS: ACETYLCYSTEINE 20% 200MG/ML 4 ML VIAL *FOR ORAL / INH USE ONLY NEB SCH ×4 (07:53→20:28)
[2022-04-28] MEDS: ALBUTEROL SO4 0.083% IH SOL 2.5 MG/3 ML VIAL.NEB. NEB SCH ×4 (07:53→20:29)
[2022-04-28] MEDS ORDERED: ASCORBIC ACID 250 MG TABLET (FP) PO SCH (10:00)
[2022-04-28] MEDS: VALPROATE SODIUM 250 MG/5 ML UNIT DOSE CUP GT SCH ×2 (11:00→21:57)
[2022-04-28] MEDS: DEXAMETHASONE SOD PHOSPHATE 10 MG/1 ML VIAL IVPUSH SCH (11:02)
[2022-04-28] MEDS: ENOXAPARIN NA (PORCINE) 30 MG/0.3 ML DISP.SYRIN SQ SCH (11:03)
[2022-04-28] MEDS: FUROSEMIDE 40 MG/5 ML UNIT-DOSE CUP GT SCH (11:03)
[2022-04-28] MEDS: MULTIVIT-MINERALS ORAL LIQUID GT SCH (11:30)
[2022-04-28] MEDS: SCOPOLAMINE HYDROBROMIDE 1 PATCH PATCH.TD72 TD SCH (15:43)
[2022-04-28] MEDS: SENNOSIDES 8.8 MG/5 ML BULK BOTTLE GT SCH (21:57)
[2022-04-28] MEDS: POLYETHYLENE GLYCOL (HEALTHYLAX) 3350 17 GM PACKET GT SCH (21:57)
[2022-04-29] MEDS: LEVOTHYROXINE NA 50 MCG TABLET (FP) GT SCH (05:59)
[2022-04-29] MEDS: clonazePAM 0.5 MG TABLET GT SCH ×3 (05:59→21:39)
[2022-04-29] MEDS: GABAPENTIN 250 MG/5 ML ORAL SOLUTION, 470 ML BOTTLE GT SCH ×3 (05:59→21:40)
[2022-04-29] MEDS: ACETYLCYSTEINE 20% 200MG/ML 4 ML VIAL *FOR ORAL / INH USE ONLY NEB SCH ×4 (07:50→21:19)
[2022-04-29] MEDS: ALBUTEROL SO4 0.083% IH SOL 2.5 MG/3 ML VIAL.NEB. NEB SCH ×4 (07:50→21:19)
[2022-04-29 09:00] LABS: CALCIUM 9.2 mg/dL (8.5-10.1)
[2022-04-29 09:01] LABS: ALBUMIN 2.1 g/dl (3.4-5.0); BLOOD UREA NITROGEN 37.6 mg/dL (7-18)
[2022-04-29 09:04] LABS: CREATININE 0.5 mg/dL (0.55-1.3)
[2022-04-29 09:06] LABS: BILIRUBIN,TOTAL 0.2 mg/dL (0.2-1); TOT PROT 6.4 g/dl (6.4-8.2)
[2022-04-29 09:58] LABS: HEMATOCRIT 36.5 % (35.4-49); HEMOGLOBIN 12.3 GM/dL (11.7-16.9); MCHC 33.6 g/dl (32.0-35.9); MEAN CELL VOLUME 92.4 fl (80-96); MEAN PLT VOLUME 8.4 fl (7.5-11.1); PLATELET COUNT 245 10^3/uL (134-434); RBC 3.95 M/mm3 (4.00-5.60); RDW 15.8 % (11.9-15.9); WHITE BLOOD COUNT 14.7 K/mm3 (4.0-10.0)
[2022-04-29] MEDS: ASCORBIC ACID 250 MG TABLET (FP) GT SCH (10:04)
[2022-04-29] MEDS: FUROSEMIDE 40 MG/5 ML UNIT-DOSE CUP GT SCH (10:04)
[2022-04-29] MEDS: VALPROATE SODIUM 250 MG/5 ML UNIT DOSE CUP GT SCH ×2 (10:04→21:38)
[2022-04-29] MEDS: MULTIVIT-MINERALS ORAL LIQUID GT SCH (10:05)
[2022-04-29] MEDS: ENOXAPARIN NA (PORCINE) 30 MG/0.3 ML DISP.SYRIN SQ SCH (10:05)
[2022-04-29] MEDS: POLYETHYLENE GLYCOL (HEALTHYLAX) 3350 17 GM PACKET GT SCH (21:38)
[2022-04-29] MEDS: SENNOSIDES 8.8 MG/5 ML BULK BOTTLE GT SCH (21:38)
[2022-04-30] MEDS: GABAPENTIN 250 MG/5 ML ORAL SOLUTION, 470 ML BOTTLE GT SCH ×3 (05:58→21:17)
[2022-04-30] MEDS: clonazePAM 0.5 MG TABLET GT SCH ×3 (05:58→21:19)
[2022-04-30] MEDS: LEVOTHYROXINE NA 50 MCG TABLET (FP) GT SCH (05:59)
[2022-04-30] MEDS: ACETYLCYSTEINE 20% 200MG/ML 4 ML VIAL *FOR ORAL / INH USE ONLY NEB SCH ×4 (09:00→19:49)
[2022-04-30] MEDS: ALBUTEROL SO4 0.083% IH SOL 2.5 MG/3 ML VIAL.NEB. NEB SCH ×4 (09:00→19:48)
[2022-04-30] MEDS: FUROSEMIDE 40 MG/5 ML UNIT-DOSE CUP GT SCH (09:55)
[2022-04-30] MEDS: ASCORBIC ACID 250 MG TABLET (FP) GT SCH (09:56)
[2022-04-30] MEDS: ENOXAPARIN NA (PORCINE) 30 MG/0.3 ML DISP.SYRIN SQ SCH (09:56)
[2022-04-30] MEDS: VALPROATE SODIUM 250 MG/5 ML UNIT DOSE CUP GT SCH ×2 (09:56→21:19)
[2022-04-30] MEDS: MULTIVIT-MINERALS ORAL LIQUID GT SCH (09:56)
[2022-04-30 11:18] LABS: HEMATOCRIT 34.6 % (35.4-49); HEMOGLOBIN 11.7 GM/dL (11.7-16.9); MCH 31.1 pg (25.7-33.7); MCHC 33.8 g/dl (32.0-35.9); MEAN CELL VOLUME 91.9 fl (80-96); MEAN PLT VOLUME 8.8 fl (7.5-11.1); PLATELET COUNT 261 10^3/uL (134-434); RBC 3.76 M/mm3 (4.00-5.60); RDW 16.3 % (11.9-15.9); WHITE BLOOD COUNT 15.2 K/mm3 (4.0-10.0)
[2022-04-30 12:03] LABS: BLOOD UREA NITROGEN 33.2 mg/dL (7-18)
[2022-04-30 12:06] LABS: CREATININE 0.5 mg/dL (0.55-1.3)
[2022-04-30 12:07] LABS: BILIRUBIN,TOTAL 0.4 mg/dL (0.2-1)
[2022-04-30 12:08] LABS: TOT PROT 6.5 g/dl (6.4-8.2)
[2022-04-30 17:57] LABS: ARTERIAL BLD GAS O2 SATURATION 96.9 % (95-98); ARTERIAL BLOOD GAS BASE EXCESS 12.2 mmol/L (-2-2); ARTERIAL BLOOD GAS PO2 85.6 mmHg (80-100); ARTERIAL BLOOD GAS pH 7.483 (7.350-7.450)
[2022-04-30 18:02] LABS: ALLENS TEST POSITIVE
[2022-04-30 18:03] LABS: VENT MODE PSV
[2022-04-30 18:04] LABS: VENT RATE 14
[2022-04-30] MEDS ORDERED: ACETAMINOPHEN 1000 MG/100 ML BAG IVPB ONE (21:06)
[2022-04-30] MEDS: POLYETHYLENE GLYCOL (HEALTHYLAX) 3350 17 GM PACKET GT SCH (21:18)
[2022-04-30] MEDS: SENNOSIDES 8.8 MG/5 ML BULK BOTTLE GT SCH (21:19)
[2022-05-01] MEDS: GABAPENTIN 250 MG/5 ML ORAL SOLUTION, 470 ML BOTTLE GT SCH ×3 (06:16→21:37)
[2022-05-01] MEDS: LEVOTHYROXINE NA 50 MCG TABLET (FP) GT SCH (06:16)
[2022-05-01] MEDS: clonazePAM 0.5 MG TABLET GT SCH ×3 (06:16→21:38)
[2022-05-01] MEDS: ACETYLCYSTEINE 20% 200MG/ML 4 ML VIAL *FOR ORAL / INH USE ONLY NEB SCH ×4 (07:36→20:10)
[2022-05-01] MEDS: ALBUTEROL SO4 0.083% IH SOL 2.5 MG/3 ML VIAL.NEB. NEB SCH ×4 (07:36→20:10)
[2022-05-01 08:47] LABS: HEMOGLOBIN 11.7 GM/dL (11.7-16.9); MCH 31.1 pg (25.7-33.7); MCHC 33.3 g/dl (32.0-35.9); MEAN CELL VOLUME 93.3 fl (80-96); MEAN PLT VOLUME 8.1 fl (7.5-11.1); PLATELET COUNT 211 10^3/uL (134-434); RBC 3.75 M/mm3 (4.00-5.60); RDW 16.1 % (11.9-15.9); WHITE BLOOD COUNT 15.5 K/mm3 (4.0-10.0)
[2022-05-01 09:59] LABS: ALBUMIN 1.9 g/dl (3.4-5.0); BILIRUBIN,TOTAL 0.4 mg/dL (0.2-1); BLOOD UREA NITROGEN 33.4 mg/dL (7-18); CALCIUM 9.4 mg/dL (8.5-10.1); CREATININE 0.7 mg/dL (0.55-1.3); TOT PROT 6.6 g/dl (6.4-8.2)
[2022-05-01] MEDS: ASCORBIC ACID 250 MG TABLET (FP) GT SCH (10:19)
[2022-05-01] MEDS: MULTIVIT-MINERALS ORAL LIQUID GT SCH (10:19)
[2022-05-01] MEDS: ENOXAPARIN NA (PORCINE) 30 MG/0.3 ML DISP.SYRIN SQ SCH (10:19)
[2022-05-01] MEDS: FUROSEMIDE 40 MG/5 ML UNIT-DOSE CUP GT SCH (10:20)
[2022-05-01] MEDS: VALPROATE SODIUM 250 MG/5 ML UNIT DOSE CUP GT SCH ×2 (10:20→21:28)
[2022-05-01] MEDS: SCOPOLAMINE HYDROBROMIDE 1 PATCH PATCH.TD72 TD SCH (13:57)
[2022-05-01] MEDS: POLYETHYLENE GLYCOL (HEALTHYLAX) 3350 17 GM PACKET GT SCH (21:37)
[2022-05-01] MEDS: SENNOSIDES 8.8 MG/5 ML BULK BOTTLE GT SCH (21:38)
[2022-05-02] MEDS: GABAPENTIN 250 MG/5 ML ORAL SOLUTION, 470 ML BOTTLE GT SCH ×3 (05:38→22:40)
[2022-05-02] MEDS: clonazePAM 0.5 MG TABLET GT SCH ×3 (05:38→22:35)
[2022-05-02] MEDS: LEVOTHYROXINE NA 50 MCG TABLET (FP) GT SCH (06:04)
[2022-05-02] MEDS: ACETYLCYSTEINE 20% 200MG/ML 4 ML VIAL *FOR ORAL / INH USE ONLY NEB SCH ×4 (07:53→20:45)
[2022-05-02] MEDS: ALBUTEROL SO4 0.083% IH SOL 2.5 MG/3 ML VIAL.NEB. NEB SCH ×4 (07:53→20:45)
[2022-05-02] MEDS: AMINO ACIDS/PROTEIN HYDROLYS 30 ML LIQUID.PKT GT SCH (08:30)
[2022-05-02 08:53] LABS: HEMATOCRIT 31.5 % (35.4-49); HEMOGLOBIN 10.5 GM/dL (11.7-16.9); MCHC 33.4 g/dl (32.0-35.9); MEAN CELL VOLUME 92.8 fl (80-96); MEAN PLT VOLUME 8.8 fl (7.5-11.1); PLATELET COUNT 232 10^3/uL (134-434); RBC 3.39 M/mm3 (4.00-5.60); RDW 15.5 % (11.9-15.9); WHITE BLOOD COUNT 14.5 K/mm3 (4.0-10.0)
[2022-05-02 09:14] LABS: CALCIUM 9.1 mg/dL (8.5-10.1)
[2022-05-02 09:16] LABS: CREATININE 0.5 mg/dL (0.55-1.3)
[2022-05-02 09:17] LABS: ALBUMIN 1.7 g/dl (3.4-5.0); BILIRUBIN,TOTAL 0.2 mg/dL (0.2-1)
[2022-05-02 09:19] LABS: BLOOD UREA NITROGEN 21.6 mg/dL (7-18)
[2022-05-02 09:20] LABS: TOT PROT 6.4 g/dl (6.4-8.2)
[2022-05-02] MEDS: ENOXAPARIN NA (PORCINE) 30 MG/0.3 ML DISP.SYRIN SQ SCH (10:08)
[2022-05-02] MEDS: VALPROATE SODIUM 250 MG/5 ML UNIT DOSE CUP GT SCH ×2 (10:08→22:35)
[2022-05-02] MEDS: MULTIVIT-MINERALS ORAL LIQUID GT SCH (10:09)
[2022-05-02] MEDS: FUROSEMIDE 40 MG/5 ML UNIT-DOSE CUP GT SCH (10:09)
[2022-05-02] MEDS: ASCORBIC ACID 500 MG TABLET (FP) GT SCH (10:09)
[2022-05-02] MEDS ORDERED: PIPERACILLIN/TAZOB 3.375 GM 3.375 GM in DEXTROSE 5%-WATER - 50 ML IVPB ONE (16:08)
[2022-05-02] MEDS ORDERED: PIPERACILLIN/TAZOBACTAM 3.375 GM VIAL IVPB ONE (17:29)
[2022-05-02] MEDS: POLYETHYLENE GLYCOL (HEALTHYLAX) 3350 17 GM PACKET GT SCH (22:36)
[2022-05-02] MEDS: SENNOSIDES 8.8 MG/5 ML BULK BOTTLE GT SCH (22:54)
[2022-05-03] MEDS ORDERED: PIPERACILLIN/TAZOBACTAM 3.375 GM VIAL IVPB ONE ×3 (01:17→18:44)
[2022-05-03] MEDS: LEVOTHYROXINE NA 50 MCG TABLET (FP) GT SCH (06:38)
[2022-05-03] MEDS: GABAPENTIN 250 MG/5 ML ORAL SOLUTION, 470 ML BOTTLE GT SCH ×3 (06:39→21:13)
[2022-05-03] MEDS: clonazePAM 0.5 MG TABLET GT SCH ×3 (06:39→21:12)
[2022-05-03] MEDS: ACETYLCYSTEINE 20% 200MG/ML 4 ML VIAL *FOR ORAL / INH USE ONLY NEB SCH ×4 (07:36→20:22)
[2022-05-03] MEDS: ALBUTEROL SO4 0.083% IH SOL 2.5 MG/3 ML VIAL.NEB. NEB SCH ×4 (07:36→20:22)
[2022-05-03] MEDS ORDERED: PIPERACILLIN/TAZOB 3.375 GM 3.375 GM in DEXTROSE 5%-WATER - 50 ML IVPB ONE ×2 (08:00)
[2022-05-03] MEDS ORDERED: DEXTROSE 5%-WATER - 50 ML IVPB ONE ×2 (08:11→18:44)
[2022-05-03] MEDS: AMINO ACIDS/PROTEIN HYDROLYS 30 ML LIQUID.PKT GT SCH (08:35)
[2022-05-03] MEDS: VALPROATE SODIUM 250 MG/5 ML UNIT DOSE CUP GT SCH ×2 (09:26→21:11)
[2022-05-03] MEDS: ENOXAPARIN NA (PORCINE) 30 MG/0.3 ML DISP.SYRIN SQ SCH (09:27)
[2022-05-03] MEDS: ASCORBIC ACID 500 MG TABLET (FP) GT SCH (09:27)
[2022-05-03] MEDS: MULTIVIT-MINERALS ORAL LIQUID GT SCH (09:27)
[2022-05-03 12:15] LABS: HEMATOCRIT 30.7 % (35.4-49); HEMOGLOBIN 10.3 GM/dL (11.7-16.9); MCH 31.2 pg (25.7-33.7); MCHC 33.7 g/dl (32.0-35.9); MEAN CELL VOLUME 92.7 fl (80-96); MEAN PLT VOLUME 8.5 fl (7.5-11.1); PLATELET COUNT 278 10^3/uL (134-434); RBC 3.31 M/mm3 (4.00-5.60); RDW 15.3 % (11.9-15.9); WHITE BLOOD COUNT 12.8 K/mm3 (4.0-10.0)
[2022-05-03 12:42] LABS: ALBUMIN 1.6 g/dl (3.4-5.0); BLOOD UREA NITROGEN 26.8 mg/dL (7-18); CALCIUM 9.1 mg/dL (8.5-10.1)
[2022-05-03 12:46] LABS: CREATININE 0.6 mg/dL (0.55-1.3)
[2022-05-03 12:47] LABS: BILIRUBIN,TOTAL 0.5 mg/dL (0.2-1); TOT PROT 6.9 g/dl (6.4-8.2)
[2022-05-03 13:43] LABS: ARTERIAL BLD GAS O2 SATURATION 99.2 % (95-98); ARTERIAL BLOOD GAS BASE EXCESS 14.6 mmol/L (-2-2); ARTERIAL BLOOD GAS PO2 160.6 mmHg (80-100); ARTERIAL BLOOD GAS pH 7.493 (7.350-7.450)
[2022-05-03 13:45] LABS: ALLENS TEST POSITIVE
[2022-05-03] MEDS: PIPERACILLIN/TAZOB 3.375 GM 3.375 GM in DEXTROSE 5%-WATER - 50 ML IVPB SCH (18:47)
[2022-05-03] MEDS: POLYETHYLENE GLYCOL (HEALTHYLAX) 3350 17 GM PACKET GT SCH (21:12)
[2022-05-03] MEDS: SENNOSIDES 8.8 MG/5 ML BULK BOTTLE GT SCH (21:12)
[2022-05-04] MEDS ORDERED: PIPERACILLIN/TAZOBACTAM 3.375 GM VIAL IVPB ONE ×2 (00:25→09:00)
[2022-05-04] MEDS ORDERED: DEXTROSE 5%-WATER - 50 ML IVPB ONE (00:25)
[2022-05-04] MEDS: PIPERACILLIN/TAZOB 3.375 GM 3.375 GM in DEXTROSE 5%-WATER - 50 ML IVPB SCH ×3 (01:14→17:39)
[2022-05-04] MEDS: clonazePAM 0.5 MG TABLET GT SCH ×3 (05:54→22:44)
[2022-05-04] MEDS: GABAPENTIN 250 MG/5 ML ORAL SOLUTION, 470 ML BOTTLE GT SCH ×3 (05:55→22:59)
[2022-05-04] MEDS: LEVOTHYROXINE NA 50 MCG TABLET (FP) GT SCH (06:08)
[2022-05-04] MEDS: ALBUTEROL SO4 0.083% IH SOL 2.5 MG/3 ML VIAL.NEB. NEB SCH ×4 (07:20→20:20)
[2022-05-04] MEDS: ACETYLCYSTEINE 20% 200MG/ML 4 ML VIAL *FOR ORAL / INH USE ONLY NEB SCH ×4 (07:20→20:19)
[2022-05-04] MEDS: AMINO ACIDS/PROTEIN HYDROLYS 30 ML LIQUID.PKT GT SCH (08:55)
[2022-05-04] MEDS: MULTIVIT-MINERALS ORAL LIQUID GT SCH (09:46)
[2022-05-04] MEDS: ENOXAPARIN NA (PORCINE) 30 MG/0.3 ML DISP.SYRIN SQ SCH (10:36)
[2022-05-04] MEDS: ASCORBIC ACID 500 MG TABLET (FP) GT SCH (10:36)
[2022-05-04] MEDS: VALPROATE SODIUM 250 MG/5 ML UNIT DOSE CUP GT SCH ×2 (10:40→22:44)
[2022-05-04] MEDS: SCOPOLAMINE HYDROBROMIDE 1 PATCH PATCH.TD72 TD SCH (13:49)
[2022-05-04] MEDS: POLYETHYLENE GLYCOL (HEALTHYLAX) 3350 17 GM PACKET GT SCH (22:44)
[2022-05-04] MEDS: SENNOSIDES 8.8 MG/5 ML BULK BOTTLE GT SCH (22:45)
[2022-05-05] MEDS ORDERED: PIPERACILLIN/TAZOBACTAM 3.375 GM VIAL IVPB ONE ×3 (02:50→16:42)
[2022-05-05] MEDS ORDERED: DEXTROSE 5%-WATER - 50 ML IVPB ONE ×3 (02:51→16:42)
[2022-05-05] MEDS: PIPERACILLIN/TAZOB 3.375 GM 3.375 GM in DEXTROSE 5%-WATER - 50 ML IVPB SCH ×3 (02:52→17:32)
[2022-05-05] MEDS: GABAPENTIN 250 MG/5 ML ORAL SOLUTION, 470 ML BOTTLE GT SCH ×3 (06:22→22:08)
[2022-05-05] MEDS: LEVOTHYROXINE NA 50 MCG TABLET (FP) GT SCH (06:22)
[2022-05-05] MEDS: clonazePAM 0.5 MG TABLET GT SCH ×3 (06:22→22:06)
[2022-05-05] MEDS: ALBUTEROL SO4 0.083% IH SOL 2.5 MG/3 ML VIAL.NEB. NEB SCH ×4 (07:25→20:05)
[2022-05-05] MEDS: ACETYLCYSTEINE 20% 200MG/ML 4 ML VIAL *FOR ORAL / INH USE ONLY NEB SCH ×4 (07:25→20:05)
[2022-05-05] MEDS: AMINO ACIDS/PROTEIN HYDROLYS 30 ML LIQUID.PKT GT SCH (10:09)
[2022-05-05] MEDS: VALPROATE SODIUM 250 MG/5 ML UNIT DOSE CUP GT SCH ×2 (10:09→22:06)
[2022-05-05] MEDS: ASCORBIC ACID 500 MG TABLET (FP) GT SCH (10:09)
[2022-05-05] MEDS: ENOXAPARIN NA (PORCINE) 30 MG/0.3 ML DISP.SYRIN SQ SCH (10:09)
[2022-05-05] MEDS: MULTIVIT-MINERALS ORAL LIQUID GT SCH (10:09)
[2022-05-05 18:57] LABS: BASO % 0.5 % (0-2.0); EOS % 1.5 % (0-4.5); HEMATOCRIT 29.5 % (35.4-49); HEMOGLOBIN 9.8 GM/dL (11.7-16.9); LYMPH % 30.3 % (8-40); MCH 31.1 pg (25.7-33.7); MCHC 33.1 g/dl (32.0-35.9); MEAN CELL VOLUME 93.8 fl (80-96); MEAN PLT VOLUME 8.1 fl (7.5-11.1); MONO % 11.9 % (3.8-10.2); NEUT % 55.8 % (42.8-82.8); PLATELET COUNT 282 10^3/uL (134-434); RBC 3.15 M/mm3 (4.00-5.60); WHITE BLOOD COUNT 10.2 K/mm3 (4.0-10.0)
[2022-05-05 19:18] LABS: CALCIUM 8.9 mg/dL (8.5-10.1)
[2022-05-05 19:19] LABS: ALBUMIN 1.5 g/dl (3.4-5.0); BLOOD UREA NITROGEN 16.9 mg/dL (7-18); MAGNESIUM 2.3 mg/dL (1.8-2.4)
[2022-05-05 19:22] LABS: CREATININE 0.4 mg/dL (0.55-1.3); PHOSPHOROUS 3.8 mg/dL (2.5-4.9)
[2022-05-05 19:23] LABS: BILIRUBIN,TOTAL 0.2 mg/dL (0.2-1); TOT PROT 7.4 g/dl (6.4-8.2)
[2022-05-05] MEDS: POLYETHYLENE GLYCOL (HEALTHYLAX) 3350 17 GM PACKET GT SCH (22:07)
[2022-05-05] MEDS: SENNOSIDES 8.8 MG/5 ML BULK BOTTLE GT SCH (22:07)
[2022-05-06] MEDS ORDERED: PIPERACILLIN/TAZOBACTAM 3.375 GM VIAL IVPB ONE ×3 (02:53→16:05)
[2022-05-06] MEDS ORDERED: DEXTROSE 5%-WATER - 50 ML IVPB ONE ×2 (02:53→16:05)
[2022-05-06] MEDS: PIPERACILLIN/TAZOB 3.375 GM 3.375 GM in DEXTROSE 5%-WATER - 50 ML IVPB SCH ×3 (02:55→17:17)
[2022-05-06] MEDS: GABAPENTIN 250 MG/5 ML ORAL SOLUTION, 470 ML BOTTLE GT SCH ×3 (06:01→21:27)
[2022-05-06] MEDS: clonazePAM 0.5 MG TABLET GT SCH ×3 (06:01→21:28)
[2022-05-06] MEDS: LEVOTHYROXINE NA 50 MCG TABLET (FP) GT SCH (06:06)
[2022-05-06] MEDS: ALBUTEROL SO4 0.083% IH SOL 2.5 MG/3 ML VIAL.NEB. NEB SCH ×4 (07:37→20:00)
[2022-05-06] MEDS: ACETYLCYSTEINE 20% 200MG/ML 4 ML VIAL *FOR ORAL / INH USE ONLY NEB SCH ×4 (07:37→20:00)
[2022-05-06] MEDS: AMINO ACIDS/PROTEIN HYDROLYS 30 ML LIQUID.PKT GT SCH (08:08)
[2022-05-06] MEDS: ENOXAPARIN NA (PORCINE) 30 MG/0.3 ML DISP.SYRIN SQ SCH (10:34)
[2022-05-06] MEDS: VALPROATE SODIUM 250 MG/5 ML UNIT DOSE CUP GT SCH ×2 (10:34→21:27)
[2022-05-06] MEDS: ASCORBIC ACID 500 MG TABLET (FP) GT SCH (10:34)
[2022-05-06] MEDS: MULTIVIT-MINERALS ORAL LIQUID GT SCH (10:35)
[2022-05-06 12:10] LABS: BASO % 0.3 % (0-2.0); EOS % 2.4 % (0-4.5); HEMATOCRIT 27.7 % (35.4-49); HEMOGLOBIN 9.2 GM/dL (11.7-16.9); LYMPH % 31.5 % (8-40); MCH 31.1 pg (25.7-33.7); MCHC 33.1 g/dl (32.0-35.9); MEAN CELL VOLUME 93.8 fl (80-96); MEAN PLT VOLUME 7.9 fl (7.5-11.1); MONO % 15.9 % (3.8-10.2); NEUT % 49.9 % (42.8-82.8); PLATELET COUNT 320 10^3/uL (134-434); RBC 2.96 M/mm3 (4.00-5.60); RDW 15.4 % (11.9-15.9); WHITE BLOOD COUNT 8.7 K/mm3 (4.0-10.0)
[2022-05-06 12:30] LABS: ALBUMIN 1.4 g/dl (3.4-5.0); MAGNESIUM 2.2 mg/dL (1.8-2.4)
[2022-05-06 12:31] LABS: BLOOD UREA NITROGEN 13.9 mg/dL (7-18); CALCIUM 9.1 mg/dL (8.5-10.1)
[2022-05-06 12:33] LABS: CREATININE 0.5 mg/dL (0.55-1.3); PHOSPHOROUS 3.8 mg/dL (2.5-4.9)
[2022-05-06 12:35] LABS: BILIRUBIN,TOTAL 0.3 mg/dL (0.2-1); TOT PROT 7.4 g/dl (6.4-8.2)
[2022-05-06 14:33] LABS: ANISOCYTOSIS 2+; MACROCYTOSIS 0; TEAR DROP CELLS 2+
[2022-05-06] MEDS: POLYETHYLENE GLYCOL (HEALTHYLAX) 3350 17 GM PACKET GT SCH (21:27)
[2022-05-06] MEDS: SENNOSIDES 8.8 MG/5 ML BULK BOTTLE GT SCH (21:28)
[2022-05-07] MEDS ORDERED: DEXTROSE 5%-WATER - 50 ML IVPB ONE ×3 (02:00→17:05)
[2022-05-07] MEDS ORDERED: PIPERACILLIN/TAZOBACTAM 3.375 GM VIAL IVPB ONE ×3 (02:00→17:05)
[2022-05-07] MEDS: PIPERACILLIN/TAZOB 3.375 GM 3.375 GM in DEXTROSE 5%-WATER - 50 ML IVPB SCH ×3 (02:29→17:17)
[2022-05-07] MEDS: GABAPENTIN 250 MG/5 ML ORAL SOLUTION, 470 ML BOTTLE GT SCH ×3 (06:13→21:31)
[2022-05-07] MEDS: clonazePAM 0.5 MG TABLET GT SCH ×3 (06:13→21:31)
[2022-05-07] MEDS: LEVOTHYROXINE NA 50 MCG TABLET (FP) GT SCH (06:14)
[2022-05-07] MEDS: ACETYLCYSTEINE 20% 200MG/ML 4 ML VIAL *FOR ORAL / INH USE ONLY NEB SCH ×4 (08:00→19:53)
[2022-05-07] MEDS: ALBUTEROL SO4 0.083% IH SOL 2.5 MG/3 ML VIAL.NEB. NEB SCH ×4 (08:00→19:55)
[2022-05-07] MEDS: AMINO ACIDS/PROTEIN HYDROLYS 30 ML LIQUID.PKT GT SCH (08:39)
[2022-05-07] MEDS: MULTIVIT-MINERALS ORAL LIQUID GT SCH (09:17)
[2022-05-07] MEDS: ENOXAPARIN NA (PORCINE) 30 MG/0.3 ML DISP.SYRIN SQ SCH (09:18)
[2022-05-07] MEDS: ASCORBIC ACID 500 MG TABLET (FP) GT SCH (09:18)
[2022-05-07] MEDS: VALPROATE SODIUM 250 MG/5 ML UNIT DOSE CUP GT SCH ×2 (09:18→21:31)
[2022-05-07 10:39] LABS: HEMATOCRIT 27.3 % (35.4-49); HEMOGLOBIN 9.3 GM/dL (11.7-16.9); MCH 31.9 pg (25.7-33.7); MCHC 34.1 g/dl (32.0-35.9); MEAN CELL VOLUME 93.5 fl (80-96); MEAN PLT VOLUME 7.7 fl (7.5-11.1); PLATELET COUNT 341 10^3/uL (134-434); RBC 2.92 M/mm3 (4.00-5.60); RDW 15.2 % (11.9-15.9); WHITE BLOOD COUNT 8.7 K/mm3 (4.0-10.0)
[2022-05-07 11:10] LABS: BLOOD UREA NITROGEN 14.8 mg/dL (7-18); CALCIUM 9.1 mg/dL (8.5-10.1); MAGNESIUM 2.2 mg/dL (1.8-2.4)
[2022-05-07 11:14] LABS: CREATININE 0.5 mg/dL (0.55-1.3)
[2022-05-07] MEDS: SCOPOLAMINE HYDROBROMIDE 1 PATCH PATCH.TD72 TD SCH (13:43)
[2022-05-07] MEDS: POLYETHYLENE GLYCOL (HEALTHYLAX) 3350 17 GM PACKET GT SCH (21:30)
[2022-05-07] MEDS: SENNOSIDES 8.8 MG/5 ML BULK BOTTLE GT SCH (21:31)
[2022-05-08] MEDS ORDERED: DEXTROSE 5%-WATER - 50 ML IVPB ONE (01:25)
[2022-05-08] MEDS ORDERED: PIPERACILLIN/TAZOBACTAM 3.375 GM VIAL IVPB ONE (01:25)
[2022-05-08] MEDS: PIPERACILLIN/TAZOB 3.375 GM 3.375 GM in DEXTROSE 5%-WATER - 50 ML IVPB SCH (01:28)
[2022-05-08] MEDS: LEVOTHYROXINE NA 50 MCG TABLET (FP) GT SCH (06:04)
[2022-05-08] MEDS: GABAPENTIN 250 MG/5 ML ORAL SOLUTION, 470 ML BOTTLE GT SCH ×3 (06:04→21:14)
[2022-05-08] MEDS: ACETYLCYSTEINE 20% 200MG/ML 4 ML VIAL *FOR ORAL / INH USE ONLY NEB SCH ×4 (07:54→19:38)
[2022-05-08] MEDS: ALBUTEROL SO4 0.083% IH SOL 2.5 MG/3 ML VIAL.NEB. NEB SCH ×4 (07:54→19:37)
[2022-05-08] MEDS: clonazePAM 0.5 MG TABLET GT SCH ×3 (07:59→21:13)
[2022-05-08] MEDS: AMINO ACIDS/PROTEIN HYDROLYS 30 ML LIQUID.PKT GT SCH (08:00)
[2022-05-08] MEDS ORDERED: AMOX TR/POT CLAV 875MG/125MG TABLETS (FP) PO SCH (08:00)
[2022-05-08 08:49] LABS: HEMATOCRIT 26.1 % (35.4-49); HEMOGLOBIN 8.8 GM/dL (11.7-16.9); MCH 31.7 pg (25.7-33.7); MCHC 33.7 g/dl (32.0-35.9); MEAN PLT VOLUME 7.7 fl (7.5-11.1); PLATELET COUNT 353 10^3/uL (134-434); RBC 2.78 M/mm3 (4.00-5.60); RDW 15.4 % (11.9-15.9); WHITE BLOOD COUNT 7.5 K/mm3 (4.0-10.0)
[2022-05-08 09:16] LABS: CALCIUM 8.9 mg/dL (8.5-10.1)
[2022-05-08 09:17] LABS: BLOOD UREA NITROGEN 14.6 mg/dL (7-18); MAGNESIUM 2.2 mg/dL (1.8-2.4)
[2022-05-08 09:20] LABS: CREATININE 0.5 mg/dL (0.55-1.3); PHOSPHOROUS 4.6 mg/dL (2.5-4.9)
[2022-05-08] MEDS: ASCORBIC ACID 500 MG TABLET (FP) GT SCH (10:00)
[2022-05-08] MEDS: VALPROATE SODIUM 250 MG/5 ML UNIT DOSE CUP GT SCH ×2 (10:00→21:12)
[2022-05-08] MEDS: ENOXAPARIN NA (PORCINE) 30 MG/0.3 ML DISP.SYRIN SQ SCH (10:01)
[2022-05-08] MEDS: MULTIVIT-MINERALS ORAL LIQUID GT SCH (10:01)
[2022-05-08] MEDS: AMOX TR/POT CLAV 875MG/125MG TABLETS (FP) PO SCH ×2 (10:01→17:17)
[2022-05-08] MEDS: POLYETHYLENE GLYCOL (HEALTHYLAX) 3350 17 GM PACKET GT SCH (21:13)
[2022-05-08] MEDS: SENNOSIDES 8.8 MG/5 ML BULK BOTTLE GT SCH (21:13)
[2022-05-09] MEDS: clonazePAM 0.5 MG TABLET GT SCH ×3 (06:12→22:49)
[2022-05-09] MEDS: GABAPENTIN 250 MG/5 ML ORAL SOLUTION, 470 ML BOTTLE GT SCH ×3 (06:12→22:49)
[2022-05-09] MEDS: LEVOTHYROXINE NA 50 MCG TABLET (FP) GT SCH (06:12)
[2022-05-09] MEDS: ACETYLCYSTEINE 20% 200MG/ML 4 ML VIAL *FOR ORAL / INH USE ONLY NEB SCH ×4 (07:55→20:00)
[2022-05-09] MEDS: ALBUTEROL SO4 0.083% IH SOL 2.5 MG/3 ML VIAL.NEB. NEB SCH ×4 (07:55→20:00)
[2022-05-09 09:56] LABS: HEMATOCRIT 26.1 % (35.4-49); HEMOGLOBIN 8.8 GM/dL (11.7-16.9); MCH 31.9 pg (25.7-33.7); MCHC 33.6 g/dl (32.0-35.9); MEAN CELL VOLUME 94.9 fl (80-96); MEAN PLT VOLUME 7.5 fl (7.5-11.1); PLATELET COUNT 357 10^3/uL (134-434); RBC 2.75 M/mm3 (4.00-5.60); RDW 15.5 % (11.9-15.9); WHITE BLOOD COUNT 6.9 K/mm3 (4.0-10.0)
[2022-05-09 10:13] LABS: BLOOD UREA NITROGEN 14.8 mg/dL (7-18); MAGNESIUM 2.2 mg/dL (1.8-2.4)
[2022-05-09 10:16] LABS: CREATININE 0.5 mg/dL (0.55-1.3); PHOSPHOROUS 4.6 mg/dL (2.5-4.9)
[2022-05-09] MEDS: VALPROATE SODIUM 250 MG/5 ML UNIT DOSE CUP GT SCH ×2 (11:14→22:49)
[2022-05-09] MEDS: ENOXAPARIN NA (PORCINE) 30 MG/0.3 ML DISP.SYRIN SQ SCH (11:14)
[2022-05-09] MEDS: ASCORBIC ACID 500 MG TABLET (FP) GT SCH (11:15)
[2022-05-09] MEDS: AMINO ACIDS/PROTEIN HYDROLYS 30 ML LIQUID.PKT GT SCH (11:15)
[2022-05-09] MEDS: MULTIVIT-MINERALS ORAL LIQUID GT SCH (11:15)
[2022-05-09] MEDS: AMOX TR/POT CLAV 875MG/125MG TABLETS (FP) PO SCH ×2 (11:15→17:52)
[2022-05-09] MEDS: POLYETHYLENE GLYCOL (HEALTHYLAX) 3350 17 GM PACKET GT SCH (22:49)
[2022-05-09] MEDS: SENNOSIDES 8.8 MG/5 ML BULK BOTTLE GT SCH (22:49)
[2022-05-10] MEDS: clonazePAM 0.5 MG TABLET GT SCH ×3 (06:38→21:11)
[2022-05-10] MEDS: GABAPENTIN 250 MG/5 ML ORAL SOLUTION, 470 ML BOTTLE GT SCH ×3 (06:38→21:12)
[2022-05-10] MEDS: LEVOTHYROXINE NA 50 MCG TABLET (FP) GT SCH (06:38)
[2022-05-10 07:40] LABS: HEMATOCRIT 27.5 % (35.4-49); HEMOGLOBIN 9.1 GM/dL (11.7-16.9); MCH 31.6 pg (25.7-33.7); MCHC 33.2 g/dl (32.0-35.9); MEAN CELL VOLUME 95.2 fl (80-96); MEAN PLT VOLUME 7.2 fl (7.5-11.1); PLATELET COUNT 363 10^3/uL (134-434); RBC 2.89 M/mm3 (4.00-5.60); RDW 15.6 % (11.9-15.9); WHITE BLOOD COUNT 6.9 K/mm3 (4.0-10.0)
[2022-05-10] MEDS: ALBUTEROL SO4 0.083% IH SOL 2.5 MG/3 ML VIAL.NEB. NEB SCH ×4 (07:40→20:05)
[2022-05-10] MEDS: ACETYLCYSTEINE 20% 200MG/ML 4 ML VIAL *FOR ORAL / INH USE ONLY NEB SCH ×4 (07:40→20:05)
[2022-05-10 07:59] LABS: CALCIUM 9.2 mg/dL (8.5-10.1); MAGNESIUM 2.2 mg/dL (1.8-2.4)
[2022-05-10 08:02] LABS: PHOSPHOROUS 4.5 mg/dL (2.5-4.9)
[2022-05-10 08:03] LABS: CREATININE 0.5 mg/dL (0.55-1.3)
[2022-05-10] MEDS: AMINO ACIDS/PROTEIN HYDROLYS 30 ML LIQUID.PKT GT SCH (08:53)
[2022-05-10] MEDS: AMOX TR/POT CLAV 875MG/125MG TABLETS (FP) PO SCH ×2 (08:53→17:31)
[2022-05-10] MEDS: VALPROATE SODIUM 250 MG/5 ML UNIT DOSE CUP GT SCH ×2 (09:16→21:11)
[2022-05-10] MEDS: ZINC SULFATE 220 MG CAPSULE (FP) PO SCH (09:18)
[2022-05-10] MEDS: ENOXAPARIN NA (PORCINE) 30 MG/0.3 ML DISP.SYRIN SQ SCH (09:18)
[2022-05-10] MEDS: ASCORBIC ACID 500 MG TABLET (FP) GT SCH (09:18)
[2022-05-10] MEDS: MULTIVIT-MINERALS ORAL LIQUID GT SCH (13:00)
[2022-05-10] MEDS: SCOPOLAMINE HYDROBROMIDE 1 PATCH PATCH.TD72 TD SCH (13:30)
[2022-05-10] MEDS: POLYETHYLENE GLYCOL (HEALTHYLAX) 3350 17 GM PACKET GT SCH (21:11)
[2022-05-10] MEDS: SENNOSIDES 8.8 MG/5 ML BULK BOTTLE GT SCH (21:12)
[2022-05-11] MEDS: clonazePAM 0.5 MG TABLET GT SCH ×3 (05:48→21:53)
[2022-05-11] MEDS: GABAPENTIN 250 MG/5 ML ORAL SOLUTION, 470 ML BOTTLE GT SCH ×3 (05:49→21:59)
[2022-05-11] MEDS: LEVOTHYROXINE NA 50 MCG TABLET (FP) GT SCH (06:11)
[2022-05-11] MEDS: ACETYLCYSTEINE 20% 200MG/ML 4 ML VIAL *FOR ORAL / INH USE ONLY NEB SCH ×4 (07:57→20:21)
[2022-05-11] MEDS: ALBUTEROL SO4 0.083% IH SOL 2.5 MG/3 ML VIAL.NEB. NEB SCH ×4 (07:57→20:21)
[2022-05-11] MEDS: ZINC SULFATE 220 MG CAPSULE (FP) PO SCH (09:16)
[2022-05-11] MEDS: MULTIVIT-MINERALS ORAL LIQUID GT SCH (09:16)
[2022-05-11] MEDS: ASCORBIC ACID 500 MG TABLET (FP) GT SCH (09:16)
[2022-05-11] MEDS: AMOX TR/POT CLAV 875MG/125MG TABLETS (FP) PO SCH ×2 (09:16→17:12)
[2022-05-11] MEDS: AMINO ACIDS/PROTEIN HYDROLYS 30 ML LIQUID.PKT GT SCH (09:16)
[2022-05-11] MEDS: ENOXAPARIN NA (PORCINE) 30 MG/0.3 ML DISP.SYRIN SQ SCH (09:16)
[2022-05-11] MEDS: VALPROATE SODIUM 250 MG/5 ML UNIT DOSE CUP GT SCH ×2 (09:16→21:57)
[2022-05-11 09:35] LABS: HEMOGLOBIN 9.5 GM/dL (11.7-16.9); MCH 31.1 pg (25.7-33.7); MCHC 32.6 g/dl (32.0-35.9); MEAN CELL VOLUME 95.3 fl (80-96); MEAN PLT VOLUME 7.4 fl (7.5-11.1); PLATELET COUNT 369 10^3/uL (134-434); RBC 3.05 M/mm3 (4.00-5.60)
[2022-05-11 09:53] LABS: CALCIUM 9.4 mg/dL (8.5-10.1); MAGNESIUM 2.1 mg/dL (1.8-2.4)
[2022-05-11 09:54] LABS: BLOOD UREA NITROGEN 14.9 mg/dL (7-18)
[2022-05-11 09:56] LABS: CREATININE 0.4 mg/dL (0.55-1.3); PHOSPHOROUS 4.2 mg/dL (2.5-4.9)
[2022-05-11] MEDS: SENNOSIDES 8.8 MG/5 ML BULK BOTTLE GT SCH (21:52)
[2022-05-11] MEDS: POLYETHYLENE GLYCOL (HEALTHYLAX) 3350 17 GM PACKET GT SCH (21:53)
[2022-05-12] MEDS: clonazePAM 0.5 MG TABLET GT SCH ×2 (05:33→15:12)
[2022-05-12] MEDS: GABAPENTIN 250 MG/5 ML ORAL SOLUTION, 470 ML BOTTLE GT SCH ×3 (05:44→21:23)
[2022-05-12] MEDS: LEVOTHYROXINE NA 50 MCG TABLET (FP) GT SCH (06:03)
[2022-05-12] MEDS: ALBUTEROL SO4 0.083% IH SOL 2.5 MG/3 ML VIAL.NEB. NEB SCH ×4 (07:44→20:19)
[2022-05-12] MEDS: ACETYLCYSTEINE 20% 200MG/ML 4 ML VIAL *FOR ORAL / INH USE ONLY NEB SCH ×4 (07:45→20:20)
[2022-05-12] MEDS: AMOX TR/POT CLAV 875MG/125MG TABLETS (FP) PO SCH ×2 (09:24→18:10)
[2022-05-12] MEDS: VALPROATE SODIUM 250 MG/5 ML UNIT DOSE CUP GT SCH ×2 (09:24→21:22)
[2022-05-12] MEDS: MULTIVIT-MINERALS ORAL LIQUID GT SCH (09:24)
[2022-05-12] MEDS: ENOXAPARIN NA (PORCINE) 30 MG/0.3 ML DISP.SYRIN SQ SCH (09:25)
[2022-05-12] MEDS: ZINC SULFATE 220 MG CAPSULE (FP) GT SCH (09:25)
[2022-05-12] MEDS: AMINO ACIDS/PROTEIN HYDROLYS 30 ML LIQUID.PKT GT SCH (09:25)
[2022-05-12] MEDS: ASCORBIC ACID 500 MG TABLET (FP) GT SCH (09:26)
[2022-05-12 09:53] LABS: HEMATOCRIT 27.6 % (35.4-49); HEMOGLOBIN 9.1 GM/dL (11.7-16.9); MCH 31.6 pg (25.7-33.7); MCHC 32.9 g/dl (32.0-35.9); MEAN CELL VOLUME 96.2 fl (80-96); MEAN PLT VOLUME 7.5 fl (7.5-11.1); PLATELET COUNT 330 10^3/uL (134-434); RBC 2.86 M/mm3 (4.00-5.60); RDW 16.2 % (11.9-15.9); WHITE BLOOD COUNT 4.8 K/mm3 (4.0-10.0)
[2022-05-12 10:16] LABS: BLOOD UREA NITROGEN 14.3 mg/dL (7-18)
[2022-05-12 10:19] LABS: CREATININE 0.4 mg/dL (0.55-1.3); PHOSPHOROUS 3.9 mg/dL (2.5-4.9)
[2022-05-12] MEDS: POLYETHYLENE GLYCOL (HEALTHYLAX) 3350 17 GM PACKET GT SCH (21:23)
[2022-05-12] MEDS: SENNOSIDES 8.8 MG/5 ML BULK BOTTLE GT SCH (21:24)
[2022-05-13] MEDS: GABAPENTIN 250 MG/5 ML ORAL SOLUTION, 470 ML BOTTLE GT SCH ×3 (05:30→22:57)
[2022-05-13] MEDS: LEVOTHYROXINE NA 50 MCG TABLET (FP) GT SCH (06:18)
[2022-05-13] MEDS: ALBUTEROL SO4 0.083% IH SOL 2.5 MG/3 ML VIAL.NEB. NEB SCH ×4 (07:25→20:30)
[2022-05-13] MEDS: ACETYLCYSTEINE 20% 200MG/ML 4 ML VIAL *FOR ORAL / INH USE ONLY NEB SCH ×4 (07:25→20:30)
[2022-05-13] MEDS: AMINO ACIDS/PROTEIN HYDROLYS 30 ML LIQUID.PKT GT SCH (09:06)
[2022-05-13 09:50] LABS: HEMATOCRIT 28.9 % (35.4-49); HEMOGLOBIN 9.7 GM/dL (11.7-16.9); MCH 31.9 pg (25.7-33.7); MCHC 33.7 g/dl (32.0-35.9); MEAN CELL VOLUME 94.6 fl (80-96); PLATELET COUNT 348 10^3/uL (134-434); RBC 3.05 M/mm3 (4.00-5.60); RDW 16.8 % (11.9-15.9); WHITE BLOOD COUNT 6.2 K/mm3 (4.0-10.0)
[2022-05-13] MEDS: ZINC SULFATE 220 MG CAPSULE (FP) GT SCH (10:25)
[2022-05-13] MEDS: MULTIVIT-MINERALS ORAL LIQUID GT SCH (10:25)
[2022-05-13] MEDS: ASCORBIC ACID 500 MG TABLET (FP) GT SCH (10:25)
[2022-05-13] MEDS: VALPROATE SODIUM 250 MG/5 ML UNIT DOSE CUP GT SCH ×2 (10:26→22:42)
[2022-05-13 10:30] LABS: BLOOD UREA NITROGEN 14.7 mg/dL (7-18)
[2022-05-13 10:31] LABS: MAGNESIUM 1.9 mg/dL (1.8-2.4)
[2022-05-13 10:33] LABS: CREATININE 0.4 mg/dL (0.55-1.3)
[2022-05-13 10:37] LABS: CALCIUM 9.2 mg/dL (8.5-10.1)
[2022-05-13] MEDS ORDERED: ENOXAPARIN NA (PORCINE) 30 MG/0.3 ML DISP.SYRIN SQ SCH (12:45)
[2022-05-13] MEDS: ENOXAPARIN NA (PORCINE) 40 MG/0.4 ML DISP.SYRIN SQ SCH (14:04)
[2022-05-13] MEDS: SCOPOLAMINE HYDROBROMIDE 1 PATCH PATCH.TD72 TD SCH (14:04)
[2022-05-13] MEDS: POLYETHYLENE GLYCOL (HEALTHYLAX) 3350 17 GM PACKET GT SCH (22:42)
[2022-05-13] MEDS: SENNOSIDES 8.8 MG/5 ML BULK BOTTLE GT SCH (22:43)
[2022-05-14] MEDS: LEVOTHYROXINE NA 50 MCG TABLET (FP) GT SCH (06:27)
[2022-05-14] MEDS: GABAPENTIN 250 MG/5 ML ORAL SOLUTION, 470 ML BOTTLE GT SCH ×3 (06:27→22:00)
[2022-05-14] MEDS: ALBUTEROL SO4 0.083% IH SOL 2.5 MG/3 ML VIAL.NEB. NEB SCH ×4 (07:59→20:07)
[2022-05-14] MEDS: ACETYLCYSTEINE 20% 200MG/ML 4 ML VIAL *FOR ORAL / INH USE ONLY NEB SCH ×4 (07:59→20:06)
[2022-05-14 09:22] LABS: BASO % 0.8 % (0-2.0); EOS % 1.1 % (0-4.5); HEMATOCRIT 29.1 % (35.4-49); HEMOGLOBIN 9.7 GM/dL (11.7-16.9); LYMPH % 49.8 % (8-40); MCH 31.8 pg (25.7-33.7); MCHC 33.4 g/dl (32.0-35.9); MEAN CELL VOLUME 95.2 fl (80-96); MEAN PLT VOLUME 7.5 fl (7.5-11.1); MONO % 13.5 % (3.8-10.2); NEUT % 34.8 % (42.8-82.8); PLATELET COUNT 334 10^3/uL (134-434); RBC 3.06 M/mm3 (4.00-5.60); RDW 16.8 % (11.9-15.9); WHITE BLOOD COUNT 6.3 K/mm3 (4.0-10.0)
[2022-05-14 09:45] LABS: CALCIUM 9.1 mg/dL (8.5-10.1)
[2022-05-14 09:46] LABS: BLOOD UREA NITROGEN 14.7 mg/dL (7-18); MAGNESIUM 2.1 mg/dL (1.8-2.4)
[2022-05-14 09:49] LABS: CREATININE 0.4 mg/dL (0.55-1.3)
[2022-05-14 09:50] LABS: TOT PROT 8.9 g/dl (6.4-8.2)
[2022-05-14 09:51] LABS: BILIRUBIN,TOTAL 0.3 mg/dL (0.2-1)
[2022-05-14] MEDS: MULTIVIT-MINERALS ORAL LIQUID GT SCH (11:28)
[2022-05-14] MEDS: ENOXAPARIN NA (PORCINE) 40 MG/0.4 ML DISP.SYRIN SQ SCH (11:29)
[2022-05-14] MEDS: ASCORBIC ACID 500 MG TABLET (FP) GT SCH (11:29)
[2022-05-14] MEDS: AMINO ACIDS/PROTEIN HYDROLYS 30 ML LIQUID.PKT GT SCH (11:29)
[2022-05-14] MEDS: ZINC SULFATE 220 MG CAPSULE (FP) GT SCH (11:29)
[2022-05-14] MEDS: VALPROATE SODIUM 250 MG/5 ML UNIT DOSE CUP GT SCH ×2 (14:53→22:00)
[2022-05-14] MEDS: POLYETHYLENE GLYCOL (HEALTHYLAX) 3350 17 GM PACKET GT SCH (22:00)
[2022-05-14] MEDS: SENNOSIDES 8.8 MG/5 ML BULK BOTTLE GT SCH (22:01)
[2022-05-15] MEDS: GABAPENTIN 250 MG/5 ML ORAL SOLUTION, 470 ML BOTTLE GT SCH (06:09)
[2022-05-15] MEDS: LEVOTHYROXINE NA 50 MCG TABLET (FP) GT SCH (06:09)
[2022-05-15] MEDS: ALBUTEROL SO4 0.083% IH SOL 2.5 MG/3 ML VIAL.NEB. NEB SCH ×2 (07:27→11:35)
[2022-05-15] MEDS: ACETYLCYSTEINE 20% 200MG/ML 4 ML VIAL *FOR ORAL / INH USE ONLY NEB SCH ×2 (07:27→11:35)
[2022-05-15] MEDS: AMINO ACIDS/PROTEIN HYDROLYS 30 ML LIQUID.PKT GT SCH (08:10)
[2022-05-15] MEDS: MULTIVIT-MINERALS ORAL LIQUID GT SCH (09:59)
[2022-05-15] MEDS: VALPROATE SODIUM 250 MG/5 ML UNIT DOSE CUP GT SCH (09:59)
[2022-05-15] MEDS: ENOXAPARIN NA (PORCINE) 40 MG/0.4 ML DISP.SYRIN SQ SCH (10:00)
[2022-05-15] MEDS: ZINC SULFATE 220 MG CAPSULE (FP) GT SCH (10:00)
[2022-05-15] MEDS: ASCORBIC ACID 500 MG TABLET (FP) GT SCH (10:00)
[2022-05-15 15:26] VITALS: BP 131/78; PULSE 86; TEMP 97.2
== END 2022-05-15 15:52 | disposition home or self-care (01) | DRG 720 ==
LOC: JER 13:48 → JERBED 16:08 → J6S 20:13
PROVIDERS: ADMIT Internal Medicine; ATTEND Internal Medicine
PROC: XW033E5 Introduction of Remdesivir Anti-infective into Peripheral Vein, Percutaneous Approach, New Technology Group 5 (ICD-10-PCS; principal; 2022-04-19)
DX: A41.89 Other specified sepsis (principal); U07.1 COVID-19; E87.1 Hypo-osmolality and hyponatremia; J96.01 Acute respiratory failure with hypoxia; R53.2 Functional quadriplegia; J12.82 Pneumonia due to coronavirus disease 2019; J96.02 Acute respiratory failure with hypercapnia; D72.829 Elevated white blood cell count, unspecified; E03.9 Hypothyroidism, unspecified; F79 Unspecified intellectual disabilities; G40.909 Epilepsy, unspecified, not intractable, without status epilepticus; G80.8 Other cerebral palsy; H54.3 Unqualified visual loss, both eyes; J98.11 Atelectasis; K21.9 Gastro-esophageal reflux disease without esophagitis; M86.672 Other chronic osteomyelitis, left ankle and foot; N39.0 Urinary tract infection, site not specified; E87.6 Hypokalemia
CPT/HCPCS: 0241U-QW; 36415; 36600; 71045-TC-FY; 80048; 80053; 81003; 82550; 82553; 82728; 82803; 82962; 83605; 83615; 83735; 83880; 84100; 84443; 84484; 85025; 85027; 85379; 85610; 85730; 86140; 86480; 86850; 86900; 86901; 87040; 87081; 87086; 87116; 87206; 87899; 93005; 93010; 94640; 94660; 94761; 99285-25; C9399; C9803-CS; J1100; U0003; U0005

== ENCOUNTER 2022-06-11 11:47 | Inpatient (IN) | payer OTHER ==
[2022-06-11] MEDS ORDERED: ALBUTEROL SO4 2.5/IPRATROPIUM 0.5 INH SOL 3 ML VIAL.NEB. NEB ONE (11:51)
[2022-06-11 12:11] VITALS: BMI 18.8
[2022-06-11] MEDS ORDERED: SODIUM CHLORIDE 1,225 ML IV ONE (12:26)
[2022-06-11] MEDS ORDERED: PIPERACILLIN/TAZOB 4.5 GM 4.5 GM in DEXTROSE 5%-WATER 100 ML IVPB ONE (12:40)
[2022-06-11] MEDS ORDERED: VANCOMYCIN 1 GM in D5W (PRE-DOCKED) 1,000 MG/250 ML IVPB ONE (12:44)
[2022-06-11] MEDS ORDERED: PIPERACILLIN/TAZOB 4.5 GM 4.5 GM/100 ML BAG IVPB ONE (13:22)
[2022-06-11 13:29] LABS: VENOUS BASE EXCESS 7.7 mmol/L (-2-2); VENOUS O2 SATURATION 76.4 % (70-80); VENOUS PCO2 67.9 mmHg (38-52); VENOUS PH 7.338 (7.310-7.410)
[2022-06-11 13:53] LABS: ALBUMIN 2.4 g/dl (3.4-5.0); BLOOD UREA NITROGEN 10.5 mg/dL (7-18); CALCIUM 9.4 mg/dL (8.5-10.1)
[2022-06-11 13:56] LABS: CREATININE 0.5 mg/dL (0.55-1.3)
[2022-06-11 13:58] LABS: BILIRUBIN,TOTAL 0.2 mg/dL (0.2-1); TOT PROT 8.4 g/dl (6.4-8.2)
[2022-06-11] MEDS ORDERED: VANCOMYCIN/WATER FOR INJ (PEG) 1,000 MG/200 ML BAG IVPB ONE (14:10)
[2022-06-11 14:14] LABS: INR 1.01 (0.83-1.09); PROTHROMBIN TIME (PATIENT) 11.6 SEC (9.7-13.0)
[2022-06-11 14:17] LABS: ACTIVATED PTT 39.5 SECONDS (25.2-36.5)
[2022-06-11 14:19] LABS: EPI CELLS >36 /uL (0-25.1); HYALINE CASTS 47 /uL (0-3.1); PH,URINE 8.5 (5.0-8.0); URINE APPEARANCE TURBID; URINE BACTERIA >9,000 /uL (0-1359); URINE BILIRUBIN NEGATIVE (NEGATIVE); URINE COLOR YELLOW; URINE GLUCOSE (UA) NEGATIVE (NEGATIVE); URINE KETONE NEGATIVE (NEGATIVE); URINE LEUK ESTERASE 3+ (NEGATIVE); URINE NITRITE NEGATIVE (NEGATIVE); URINE PROTEIN 2+ (NEGATIVE); URINE RBC 9 /uL (0-23.9); URINE UROBILINOGEN 0.2 mg/dL (0.2-1.0); URINE WBC 658 /uL (0-25.8)
[2022-06-11 14:37] LABS: BASO % 0.2 % (0-2.0); EOS % 0.6 % (0-4.5); HEMATOCRIT 32.6 % (35.4-49); MCH 31.7 pg (25.7-33.7); MCHC 33.9 g/dl (32.0-35.9); MEAN CELL VOLUME 93.6 fl (80-96); MEAN PLT VOLUME 9.1 fl (7.5-11.1); MONO % 8.6 % (3.8-10.2); NEUT % 69.6 % (42.8-82.8); PLATELET COUNT 100 10^3/uL (134-434); RBC 3.49 M/mm3 (4.00-5.60); RDW 16.4 % (11.9-15.9); WHITE BLOOD COUNT 8.9 K/mm3 (4.0-10.0)
[2022-06-11 15:00] LABS: YEAST NONE SEEN (NEGATIVE)
[2022-06-11] MEDS ORDERED: SENNOSIDES 8.8 MG/5 ML BULK BOTTLE GT PRN (16:25)
[2022-06-11] MEDS ORDERED: diazePAM RECTAL GEL 10 MG KIT (PRE-CALIBRATED) RC PRN (16:25)
[2022-06-11] MEDS ORDERED: ALBUTEROL SO4 0.083% IH SOL 2.5 MG/3 ML VIAL.NEB. NEB PRN (16:25)
[2022-06-11] MEDS ORDERED: POLYETHYLENE GLYCOL (HEALTHYLAX) 3350 17 GM PACKET GT PRN (16:25)
[2022-06-11] MEDS ORDERED: MUPIROCIN 2% TOPICAL OINTMENT 22 GM TUBE TP PRN (16:25)
[2022-06-11] MEDS ORDERED: D5-NS + 20 MEQ KCL - 20 MEQ/1,000 ML INFUS.BAG IV SCH (16:30)
[2022-06-11] MEDS ORDERED: PIPERACILLIN/TAZOB 3.375 GM 3.375 GM in DEXTROSE 5%-WATER - 50 ML IVPB SCH (22:00)
[2022-06-11] MEDS: PIPERACILLIN/TAZOB 3.375 GM 3.375 GM in DEXTROSE 5%-WATER - 50 ML IVPB SCH (23:00)
[2022-06-11] MEDS: clonazePAM 0.5 MG TABLET GT SCH (23:00)
[2022-06-12] MEDS ORDERED: PIPERACILLIN/TAZOBACTAM 3.375 GM VIAL IVPB ONE ×2 (00:18→05:32)
[2022-06-12] MEDS: DIVALPROEX SODIUM 125 MG SPRINKLE CAPS PO SCH ×3 (00:50→23:04)
[2022-06-12] MEDS: PIPERACILLIN/TAZOB 3.375 GM 3.375 GM in DEXTROSE 5%-WATER - 50 ML IVPB SCH ×2 (06:00→14:08)
[2022-06-12] MEDS: clonazePAM 0.5 MG TABLET GT SCH ×3 (06:00→23:05)
[2022-06-12] MEDS: LEVOTHYROXINE NA 50 MCG TABLET (FP) GT SCH (06:00)
[2022-06-12 07:36] LABS: BASO % 0.4 % (0-2.0); EOS % 0.1 % (0-4.5); MCH 31.4 pg (25.7-33.7); MCHC 33.2 g/dl (32.0-35.9); MEAN CELL VOLUME 94.4 fl (80-96); MEAN PLT VOLUME 8.9 fl (7.5-11.1); MONO % 5.6 % (3.8-10.2); NEUT % 87.9 % (42.8-82.8); PLATELET COUNT 88 10^3/uL (134-434); RDW 15.9 % (11.9-15.9); WHITE BLOOD COUNT 12.9 K/mm3 (4.0-10.0)
[2022-06-12 08:02] LABS: ALBUMIN 2.2 g/dl (3.4-5.0)
[2022-06-12 08:03] LABS: BLOOD UREA NITROGEN 6.9 mg/dL (7-18); CALCIUM 9.1 mg/dL (8.5-10.1); MAGNESIUM 1.6 mg/dL (1.8-2.4)
[2022-06-12 08:06] LABS: CREATININE 0.4 mg/dL (0.55-1.3); PHOSPHOROUS 3.4 mg/dL (2.5-4.9)
[2022-06-12 08:07] LABS: TOT PROT 7.5 g/dl (6.4-8.2)
[2022-06-12 08:10] LABS: BILIRUBIN,TOTAL 0.4 mg/dL (0.2-1)
[2022-06-12] MEDS ORDERED: MAGNESIUM SULFATE IN WATER 2 GM/50 ML IVPB IVPB ONE (09:00)
[2022-06-12] MEDS ORDERED: VANCOMYCIN 1 GM in D5W (PRE-DOCKED) 1,000 MG/250 ML IVPB SCH (10:00)
[2022-06-12] MEDS ORDERED: FUROSEMIDE 20 MG TABLET (FP) GT SCH (10:00)
[2022-06-12] MEDS: ENOXAPARIN NA (PORCINE) 40 MG/0.4 ML DISP.SYRIN SQ SCH (10:01)
[2022-06-12] MEDS ORDERED: DEXTROSE 5%-NORMAL SALINE 1,000 ML IV SCH (10:45)
[2022-06-12] MEDS: ALBUTEROL SO4 0.083% IH SOL 2.5 MG/3 ML VIAL.NEB. NEB SCH ×2 (15:55→21:02)
[2022-06-12] MEDS: ACETYLCYSTEINE 20% 200MG/ML 4 ML VIAL *FOR ORAL / INH USE ONLY NEB SCH ×2 (15:55→20:20)
[2022-06-12] MEDS ORDERED: ACETYLCYSTEINE 20% 200MG/ML 30 ML VIAL *FOR ORAL / INH USE ONLY NEB SCH (16:00)
[2022-06-13] MEDS: LEVOTHYROXINE NA 50 MCG TABLET (FP) GT SCH (06:01)
[2022-06-13] MEDS: clonazePAM 0.5 MG TABLET GT SCH ×3 (06:01→22:26)
[2022-06-13 08:16] LABS: ALBUMIN 1.9 g/dl (3.4-5.0); BLOOD UREA NITROGEN 6.4 mg/dL (7-18); CALCIUM 8.7 mg/dL (8.5-10.1)
[2022-06-13 08:19] LABS: CREATININE 0.3 mg/dL (0.55-1.3)
[2022-06-13 08:21] LABS: BILIRUBIN,TOTAL 0.6 mg/dL (0.2-1); TOT PROT 6.7 g/dl (6.4-8.2)
[2022-06-13] MEDS: ALBUTEROL SO4 0.083% IH SOL 2.5 MG/3 ML VIAL.NEB. NEB SCH ×3 (08:30→21:21)
[2022-06-13] MEDS: ACETYLCYSTEINE 20% 200MG/ML 4 ML VIAL *FOR ORAL / INH USE ONLY NEB SCH ×2 (08:30→12:05)
[2022-06-13] MEDS: DIVALPROEX SODIUM 125 MG SPRINKLE CAPS PO SCH ×2 (10:22→22:25)
[2022-06-13] MEDS: ENOXAPARIN NA (PORCINE) 40 MG/0.4 ML DISP.SYRIN SQ SCH (10:22)
[2022-06-13 13:35] LABS: HEMATOCRIT 29.7 % (35.4-49); HEMOGLOBIN 9.9 GM/dL (11.7-16.9); MCHC 33.3 g/dl (32.0-35.9); MEAN CELL VOLUME 95.9 fl (80-96); MEAN PLT VOLUME 8.6 fl (7.5-11.1); PLATELET COUNT 101 10^3/uL (134-434); RBC 3.09 M/mm3 (4.00-5.60); RDW 16.4 % (11.9-15.9); WHITE BLOOD COUNT 9.3 K/mm3 (4.0-10.0)
[2022-06-13] MEDS: PIPERACILLIN/TAZOB 2.25 GM 2.25 GM in DEXTROSE 5%-WATER - 50 ML IVPB SCH ×2 (14:10→18:04)
[2022-06-13] MEDS: methylPREDNISolone NA SUCC 40 MG/1 ML VIAL IVPUSH SCH (16:34)
[2022-06-13] MEDS: VANCOMYCIN 1 GM in D5W (PRE-DOCKED) 1,000 MG/250 ML IVPB SCH (16:38)
[2022-06-13] MEDS: ACETYLCYSTEINE 20% 200MG/ML 30 ML VIAL *FOR ORAL / INH USE ONLY NEB SCH (21:20)
[2022-06-14] MEDS: PIPERACILLIN/TAZOB 2.25 GM 2.25 GM in DEXTROSE 5%-WATER - 50 ML IVPB SCH ×3 (03:11→19:33)
[2022-06-14] MEDS: methylPREDNISolone NA SUCC 40 MG/1 ML VIAL IVPUSH SCH ×3 (03:11→19:33)
[2022-06-14] MEDS: clonazePAM 0.5 MG TABLET GT SCH ×3 (06:04→21:58)
[2022-06-14] MEDS: LEVOTHYROXINE NA 50 MCG TABLET (FP) GT SCH (06:08)
[2022-06-14] MEDS: ACETYLCYSTEINE 20% 200MG/ML 30 ML VIAL *FOR ORAL / INH USE ONLY NEB SCH ×4 (07:30→20:30)
[2022-06-14] MEDS: ALBUTEROL SO4 0.083% IH SOL 2.5 MG/3 ML VIAL.NEB. NEB SCH ×3 (07:30→20:30)
[2022-06-14 09:29] LABS: ARTERIAL BLD GAS O2 SATURATION 95.3 % (95-98); ARTERIAL BLOOD GAS BASE EXCESS 1.3 mmol/L (-2-2); ARTERIAL BLOOD GAS PO2 81.6 mmHg (80-100); ARTERIAL BLOOD GAS pH 7.345 (7.350-7.450)
[2022-06-14 09:31] LABS: ALLENS TEST POSITIVE; PT'S TEMP 96.7
[2022-06-14] MEDS: ENOXAPARIN NA (PORCINE) 40 MG/0.4 ML DISP.SYRIN SQ SCH (10:55)
[2022-06-14 13:51] LABS: CALCIUM 9.8 mg/dL (8.5-10.1)
[2022-06-14 13:52] LABS: ALBUMIN 1.8 g/dl (3.4-5.0); BLOOD UREA NITROGEN 15.7 mg/dL (7-18)
[2022-06-14 13:55] LABS: CREATININE 0.4 mg/dL (0.55-1.3)
[2022-06-14 13:57] LABS: BILIRUBIN,TOTAL 0.7 mg/dL (0.2-1); TOT PROT 7.2 g/dl (6.4-8.2)
[2022-06-14] MEDS: DIVALPROEX SODIUM 125 MG SPRINKLE CAPS PO SCH ×2 (14:20→21:58)
[2022-06-14 14:53] LABS: HEMATOCRIT 27.9 % (35.4-49); HEMOGLOBIN 9.3 GM/dL (11.7-16.9); MCHC 33.5 g/dl (32.0-35.9); MEAN CELL VOLUME 95.6 fl (80-96); MEAN PLT VOLUME 8.1 fl (7.5-11.1); PLATELET COUNT 94 10^3/uL (134-434); RBC 2.92 M/mm3 (4.00-5.60); RDW 15.9 % (11.9-15.9); WHITE BLOOD COUNT 5.9 K/mm3 (4.0-10.0)
[2022-06-15] MEDS: PIPERACILLIN/TAZOB 2.25 GM 2.25 GM in DEXTROSE 5%-WATER - 50 ML IVPB SCH ×3 (01:44→18:37)
[2022-06-15] MEDS: methylPREDNISolone NA SUCC 40 MG/1 ML VIAL IVPUSH SCH ×3 (01:44→18:37)
[2022-06-15] MEDS: LEVOTHYROXINE NA 50 MCG TABLET (FP) GT SCH (06:09)
[2022-06-15] MEDS: clonazePAM 0.5 MG TABLET GT SCH ×3 (06:10→21:18)
[2022-06-15] MEDS: ALBUTEROL SO4 0.083% IH SOL 2.5 MG/3 ML VIAL.NEB. NEB SCH ×4 (07:20→20:22)
[2022-06-15] MEDS: ACETYLCYSTEINE 20% 200MG/ML 30 ML VIAL *FOR ORAL / INH USE ONLY NEB SCH ×4 (07:20→20:22)
[2022-06-15] MEDS: ENOXAPARIN NA (PORCINE) 40 MG/0.4 ML DISP.SYRIN SQ SCH (10:32)
[2022-06-15] MEDS: DIVALPROEX SODIUM 125 MG SPRINKLE CAPS PO SCH ×2 (11:33→21:16)
[2022-06-15 13:42] LABS: HEMATOCRIT 30.8 % (35.4-49); HEMOGLOBIN 10.2 GM/dL (11.7-16.9); MCH 31.7 pg (25.7-33.7); MCHC 33.2 g/dl (32.0-35.9); MEAN CELL VOLUME 95.5 fl (80-96); PLATELET COUNT 104 10^3/uL (134-434); RBC 3.22 M/mm3 (4.00-5.60); RDW 16.3 % (11.9-15.9)
[2022-06-15 14:10] LABS: ALBUMIN 1.9 g/dl (3.4-5.0); BLOOD UREA NITROGEN 28.2 mg/dL (7-18); CALCIUM 10.2 mg/dL (8.5-10.1)
[2022-06-15 14:13] LABS: CREATININE 0.4 mg/dL (0.55-1.3)
[2022-06-15 14:14] LABS: BILIRUBIN,TOTAL 0.5 mg/dL (0.2-1); TOT PROT 7.5 g/dl (6.4-8.2)
[2022-06-16] MEDS: methylPREDNISolone NA SUCC 40 MG/1 ML VIAL IVPUSH SCH ×3 (03:08→18:40)
[2022-06-16] MEDS: PIPERACILLIN/TAZOB 2.25 GM 2.25 GM in DEXTROSE 5%-WATER - 50 ML IVPB SCH ×3 (03:08→18:40)
[2022-06-16] MEDS: clonazePAM 0.5 MG TABLET GT SCH ×3 (05:25→21:26)
[2022-06-16] MEDS: LEVOTHYROXINE NA 50 MCG TABLET (FP) GT SCH (06:48)
[2022-06-16 07:03] LABS: HEMOGLOBIN 9.3 GM/dL (11.7-16.9); MCH 31.9 pg (25.7-33.7); MCHC 33.3 g/dl (32.0-35.9); MEAN CELL VOLUME 95.8 fl (80-96); PLATELET COUNT 111 10^3/uL (134-434); RBC 2.93 M/mm3 (4.00-5.60); RDW 15.6 % (11.9-15.9); WHITE BLOOD COUNT 4.4 K/mm3 (4.0-10.0)
[2022-06-16 07:29] LABS: ALBUMIN 1.8 g/dl (3.4-5.0); BLOOD UREA NITROGEN 36.2 mg/dL (7-18); CALCIUM 9.3 mg/dL (8.5-10.1)
[2022-06-16 07:33] LABS: CREATININE 0.5 mg/dL (0.55-1.3)
[2022-06-16 07:34] LABS: BILIRUBIN,TOTAL 0.3 mg/dL (0.2-1); TOT PROT 6.8 g/dl (6.4-8.2)
[2022-06-16] MEDS: ACETYLCYSTEINE 20% 200MG/ML 30 ML VIAL *FOR ORAL / INH USE ONLY NEB SCH ×4 (07:47→20:37)
[2022-06-16] MEDS: ALBUTEROL SO4 0.083% IH SOL 2.5 MG/3 ML VIAL.NEB. NEB SCH ×4 (07:48→20:37)
[2022-06-16] MEDS: ENOXAPARIN NA (PORCINE) 40 MG/0.4 ML DISP.SYRIN SQ SCH (10:26)
[2022-06-16] MEDS: DIVALPROEX SODIUM 125 MG SPRINKLE CAPS PO SCH ×2 (10:27→21:26)
[2022-06-17] MEDS ORDERED: PIPERACILLIN/TAZOBACTAM 2.25 GM VIAL IVPB ONE ×2 (00:55→09:32)
[2022-06-17] MEDS: methylPREDNISolone NA SUCC 40 MG/1 ML VIAL IVPUSH SCH ×2 (01:04→09:57)
[2022-06-17] MEDS: PIPERACILLIN/TAZOB 2.25 GM 2.25 GM in DEXTROSE 5%-WATER - 50 ML IVPB SCH ×3 (01:14→17:11)
[2022-06-17] MEDS: clonazePAM 0.5 MG TABLET GT SCH ×3 (06:16→21:52)
[2022-06-17] MEDS: LEVOTHYROXINE NA 50 MCG TABLET (FP) GT SCH (06:16)
[2022-06-17] MEDS: ACETYLCYSTEINE 20% 200MG/ML 30 ML VIAL *FOR ORAL / INH USE ONLY NEB SCH ×4 (07:35→19:21)
[2022-06-17] MEDS: ALBUTEROL SO4 0.083% IH SOL 2.5 MG/3 ML VIAL.NEB. NEB SCH ×4 (07:35→19:21)
[2022-06-17] MEDS: AMINO ACIDS/PROTEIN HYDROLYS 30 ML LIQUID.PKT PO SCH (09:57)
[2022-06-17] MEDS: DIVALPROEX SODIUM 125 MG SPRINKLE CAPS PO SCH ×2 (09:58→21:52)
[2022-06-17] MEDS: ENOXAPARIN NA (PORCINE) 40 MG/0.4 ML DISP.SYRIN SQ SCH (09:59)
[2022-06-18] MEDS: LEVOTHYROXINE NA 50 MCG TABLET (FP) GT SCH (06:12)
[2022-06-18] MEDS: clonazePAM 0.5 MG TABLET GT SCH ×3 (06:12→22:36)
[2022-06-18 08:39] LABS: HEMATOCRIT 29.3 % (35.4-49); HEMOGLOBIN 9.4 GM/dL (11.7-16.9); MCH 31.3 pg (25.7-33.7); MCHC 32.1 g/dl (32.0-35.9); MEAN CELL VOLUME 97.8 fl (80-96); MEAN PLT VOLUME 9.2 fl (7.5-11.1); PLATELET COUNT 136 10^3/uL (134-434); RDW 15.8 % (11.9-15.9); WHITE BLOOD COUNT 8.5 K/mm3 (4.0-10.0)
[2022-06-18] MEDS: ALBUTEROL SO4 0.083% IH SOL 2.5 MG/3 ML VIAL.NEB. NEB SCH ×4 (08:48→20:42)
[2022-06-18] MEDS: ACETYLCYSTEINE 20% 200MG/ML 30 ML VIAL *FOR ORAL / INH USE ONLY NEB SCH ×4 (08:48→20:42)
[2022-06-18 08:59] LABS: BLOOD UREA NITROGEN 27.5 mg/dL (7-18); CALCIUM 9.5 mg/dL (8.5-10.1)
[2022-06-18 09:03] LABS: BILIRUBIN,TOTAL 0.7 mg/dL (0.2-1); CREATININE 0.4 mg/dL (0.55-1.3); TOT PROT 6.5 g/dl (6.4-8.2)
[2022-06-18] MEDS: ENOXAPARIN NA (PORCINE) 40 MG/0.4 ML DISP.SYRIN SQ SCH (09:25)
[2022-06-18] MEDS: AMINO ACIDS/PROTEIN HYDROLYS 30 ML LIQUID.PKT PO SCH (09:25)
[2022-06-18] MEDS: DIVALPROEX SODIUM 125 MG SPRINKLE CAPS PO SCH ×2 (09:26→22:36)
[2022-06-18] MEDS: methylPREDNISolone NA SUCC 40 MG/1 ML VIAL IVPUSH SCH (09:26)
[2022-06-18 10:49] LABS: RETICULOCYTES 2.23 % (0.5-1.5)
[2022-06-19] MEDS: LEVOTHYROXINE NA 50 MCG TABLET (FP) GT SCH (06:20)
[2022-06-19] MEDS: clonazePAM 0.5 MG TABLET GT SCH ×3 (06:20→23:18)
[2022-06-19] MEDS: ALBUTEROL SO4 0.083% IH SOL 2.5 MG/3 ML VIAL.NEB. NEB SCH ×4 (07:30→20:35)
[2022-06-19] MEDS: ACETYLCYSTEINE 20% 200MG/ML 30 ML VIAL *FOR ORAL / INH USE ONLY NEB SCH ×2 (07:30→11:39)
[2022-06-19 08:25] LABS: HEMOGLOBIN 10.1 GM/dL (11.7-16.9); MCH 31.6 pg (25.7-33.7); MCHC 32.6 g/dl (32.0-35.9); MEAN CELL VOLUME 97.2 fl (80-96); MEAN PLT VOLUME 8.8 fl (7.5-11.1); PLATELET COUNT 143 10^3/uL (134-434); RBC 3.19 M/mm3 (4.00-5.60); RDW 15.5 % (11.9-15.9); WHITE BLOOD COUNT 10.2 K/mm3 (4.0-10.0)
[2022-06-19 08:55] LABS: BLOOD UREA NITROGEN 21.2 mg/dL (7-18)
[2022-06-19 08:57] LABS: CREATININE 0.4 mg/dL (0.55-1.3)
[2022-06-19 08:59] LABS: ALBUMIN 2.1 g/dl (3.4-5.0); BILIRUBIN,TOTAL 0.2 mg/dL (0.2-1); TOT PROT 6.5 g/dl (6.4-8.2)
[2022-06-19 09:03] LABS: CALCIUM 9.2 mg/dL (8.5-10.1)
[2022-06-19] MEDS: AMINO ACIDS/PROTEIN HYDROLYS 30 ML LIQUID.PKT PO SCH (10:37)
[2022-06-19] MEDS: DIVALPROEX SODIUM 125 MG SPRINKLE CAPS PO SCH ×2 (10:37→23:19)
[2022-06-19] MEDS: ENOXAPARIN NA (PORCINE) 40 MG/0.4 ML DISP.SYRIN SQ SCH (10:37)
[2022-06-19] MEDS: methylPREDNISolone NA SUCC 40 MG/1 ML VIAL IVPUSH SCH (10:37)
[2022-06-19] MEDS: ACETYLCYSTEINE 20% 200MG/ML 4 ML VIAL *FOR ORAL / INH USE ONLY NEB SCH ×3 (11:39→20:35)
[2022-06-20] MEDS: SCOPOLAMINE HYDROBROMIDE 1 PATCH PATCH.TD72 TD SCH (04:53)
[2022-06-20] MEDS: LEVOTHYROXINE NA 50 MCG TABLET (FP) GT SCH (06:32)
[2022-06-20] MEDS: clonazePAM 0.5 MG TABLET GT SCH ×3 (06:32→22:06)
[2022-06-20] MEDS: ACETYLCYSTEINE 20% 200MG/ML 4 ML VIAL *FOR ORAL / INH USE ONLY NEB SCH ×4 (07:43→20:21)
[2022-06-20] MEDS: ALBUTEROL SO4 0.083% IH SOL 2.5 MG/3 ML VIAL.NEB. NEB SCH ×4 (07:43→20:22)
[2022-06-20 08:41] LABS: HEMATOCRIT 32.3 % (35.4-49); HEMOGLOBIN 11.1 GM/dL (11.7-16.9); MCH 32.7 pg (25.7-33.7); MCHC 34.2 g/dl (32.0-35.9); MEAN CELL VOLUME 95.8 fl (80-96); MEAN PLT VOLUME 8.6 fl (7.5-11.1); PLATELET COUNT 172 10^3/uL (134-434); RBC 3.37 M/mm3 (4.00-5.60); RDW 14.9 % (11.9-15.9)
[2022-06-20 09:21] LABS: ALBUMIN 2.4 g/dl (3.4-5.0); BLOOD UREA NITROGEN 18.5 mg/dL (7-18)
[2022-06-20 09:23] LABS: CREATININE 0.4 mg/dL (0.55-1.3)
[2022-06-20 09:25] LABS: BILIRUBIN,TOTAL 0.3 mg/dL (0.2-1); TOT PROT 7.1 g/dl (6.4-8.2)
[2022-06-20] MEDS: methylPREDNISolone NA SUCC 40 MG/1 ML VIAL IVPUSH SCH (09:38)
[2022-06-20] MEDS: DIVALPROEX SODIUM 125 MG SPRINKLE CAPS PO SCH ×2 (09:38→22:06)
[2022-06-20] MEDS: ENOXAPARIN NA (PORCINE) 40 MG/0.4 ML DISP.SYRIN SQ SCH (09:38)
[2022-06-20] MEDS: AMINO ACIDS/PROTEIN HYDROLYS 30 ML LIQUID.PKT PO SCH (09:38)
[2022-06-21] MEDS: clonazePAM 0.5 MG TABLET GT SCH ×3 (06:21→21:58)
[2022-06-21] MEDS: LEVOTHYROXINE NA 50 MCG TABLET (FP) GT SCH (06:21)
[2022-06-21 07:27] LABS: HEMATOCRIT 29.4 % (35.4-49); HEMOGLOBIN 9.9 GM/dL (11.7-16.9); MCH 31.8 pg (25.7-33.7); MCHC 33.7 g/dl (32.0-35.9); MEAN CELL VOLUME 94.4 fl (80-96); MEAN PLT VOLUME 8.6 fl (7.5-11.1); PLATELET COUNT 195 10^3/uL (134-434); RBC 3.11 M/mm3 (4.00-5.60); RDW 15.1 % (11.9-15.9); WHITE BLOOD COUNT 8.4 K/mm3 (4.0-10.0)
[2022-06-21 07:45] LABS: BLOOD UREA NITROGEN 26.3 mg/dL (7-18); CALCIUM 8.7 mg/dL (8.5-10.1)
[2022-06-21 07:47] LABS: ALBUMIN 2.1 g/dl (3.4-5.0)
[2022-06-21 07:49] LABS: CREATININE 0.5 mg/dL (0.55-1.3)
[2022-06-21 07:50] LABS: BILIRUBIN,TOTAL 0.2 mg/dL (0.2-1); TOT PROT 6.7 g/dl (6.4-8.2)
[2022-06-21] MEDS: ACETYLCYSTEINE 20% 200MG/ML 4 ML VIAL *FOR ORAL / INH USE ONLY NEB SCH ×4 (08:31→20:40)
[2022-06-21] MEDS: ALBUTEROL SO4 0.083% IH SOL 2.5 MG/3 ML VIAL.NEB. NEB SCH ×4 (08:31→20:40)
[2022-06-21] MEDS: methylPREDNISolone NA SUCC 40 MG/1 ML VIAL IVPUSH SCH (10:08)
[2022-06-21] MEDS: ENOXAPARIN NA (PORCINE) 40 MG/0.4 ML DISP.SYRIN SQ SCH (10:08)
[2022-06-21] MEDS: TUBE FEED DECLOGGING SOLUTION 12,000 UNITS GT SCH ×3 (11:46→18:00)
[2022-06-21] MEDS: AMINO ACIDS/PROTEIN HYDROLYS 30 ML LIQUID.PKT PO SCH (13:08)
[2022-06-21] MEDS: DIVALPROEX SODIUM 125 MG SPRINKLE CAPS PO SCH ×2 (13:08→21:56)
[2022-06-22] MEDS: clonazePAM 0.5 MG TABLET GT SCH ×3 (06:18→21:35)
[2022-06-22] MEDS: LEVOTHYROXINE NA 50 MCG TABLET (FP) GT SCH (06:18)
[2022-06-22 07:58] LABS: BLOOD UREA NITROGEN 22.9 mg/dL (7-18); CALCIUM 9.1 mg/dL (8.5-10.1)
[2022-06-22 07:59] LABS: ALBUMIN 2.2 g/dl (3.4-5.0)
[2022-06-22 08:02] LABS: CREATININE 0.3 mg/dL (0.55-1.3)
[2022-06-22 08:03] LABS: TOT PROT 7.2 g/dl (6.4-8.2)
[2022-06-22] MEDS: ALBUTEROL SO4 0.083% IH SOL 2.5 MG/3 ML VIAL.NEB. NEB SCH ×4 (08:03→20:28)
[2022-06-22] MEDS: ACETYLCYSTEINE 20% 200MG/ML 4 ML VIAL *FOR ORAL / INH USE ONLY NEB SCH ×4 (08:03→20:29)
[2022-06-22 08:14] LABS: BILIRUBIN,TOTAL 0.4 mg/dL (0.2-1)
[2022-06-22] MEDS: TUBE FEED DECLOGGING SOLUTION 12,000 UNITS GT SCH ×2 (09:00→16:57)
[2022-06-22] MEDS: AMINO ACIDS/PROTEIN HYDROLYS 30 ML LIQUID.PKT PO SCH (09:00)
[2022-06-22] MEDS: ENOXAPARIN NA (PORCINE) 40 MG/0.4 ML DISP.SYRIN SQ SCH (09:47)
[2022-06-22] MEDS: methylPREDNISolone NA SUCC 40 MG/1 ML VIAL IVPUSH SCH (09:48)
[2022-06-22] MEDS: DIVALPROEX SODIUM 125 MG SPRINKLE CAPS PO SCH (09:58)
[2022-06-22 12:28] LABS: HEMATOCRIT 30.9 % (35.4-49); HEMOGLOBIN 10.4 GM/dL (11.7-16.9); MCH 31.9 pg (25.7-33.7); MCHC 33.6 g/dl (32.0-35.9); MEAN CELL VOLUME 94.9 fl (80-96); MEAN PLT VOLUME 8.6 fl (7.5-11.1); PLATELET COUNT 285 10^3/uL (134-434); RBC 3.26 M/mm3 (4.00-5.60); RDW 15.4 % (11.9-15.9); WHITE BLOOD COUNT 6.7 K/mm3 (4.0-10.0)
[2022-06-22] MEDS ORDERED: VALPROATE SODIUM 250 MG/5 ML UNIT DOSE CUP GT SCH (22:00)
[2022-06-22] MEDS: VALPROATE SODIUM 250 MG/5 ML UNIT DOSE CUP GT SCH (23:00)
[2022-06-23] MEDS: SCOPOLAMINE HYDROBROMIDE 1 PATCH PATCH.TD72 TD SCH ×2 (06:37→10:16)
[2022-06-23] MEDS: LEVOTHYROXINE NA 50 MCG TABLET (FP) GT SCH (06:37)
[2022-06-23] MEDS: clonazePAM 0.5 MG TABLET GT SCH ×3 (06:37→21:59)
[2022-06-23] MEDS: ALBUTEROL SO4 0.083% IH SOL 2.5 MG/3 ML VIAL.NEB. NEB SCH ×4 (07:31→20:56)
[2022-06-23] MEDS: ACETYLCYSTEINE 20% 200MG/ML 4 ML VIAL *FOR ORAL / INH USE ONLY NEB SCH ×4 (07:31→20:57)
[2022-06-23] MEDS: AMINO ACIDS/PROTEIN HYDROLYS 30 ML LIQUID.PKT PO SCH (09:00)
[2022-06-23] MEDS: ENOXAPARIN NA (PORCINE) 40 MG/0.4 ML DISP.SYRIN SQ SCH (10:15)
[2022-06-23] MEDS: methylPREDNISolone NA SUCC 40 MG/1 ML VIAL IVPUSH SCH (10:15)
[2022-06-23] MEDS: SODIUM ZIRCONIUM CYCLOSILICATE (LOKELMA) 5 GM PACKET PO SCH (10:23)
[2022-06-23] MEDS: VALPROATE SODIUM 250 MG/5 ML UNIT DOSE CUP GT SCH ×2 (10:23→21:59)
[2022-06-23 14:41] LABS: HEMATOCRIT 29.7 % (35.4-49); HEMOGLOBIN 10.2 GM/dL (11.7-16.9); MCH 32.5 pg (25.7-33.7); MCHC 34.3 g/dl (32.0-35.9); MEAN CELL VOLUME 94.8 fl (80-96); MEAN PLT VOLUME 8.2 fl (7.5-11.1); PLATELET COUNT 355 10^3/uL (134-434); RBC 3.13 M/mm3 (4.00-5.60); RDW 15.9 % (11.9-15.9); WHITE BLOOD COUNT 6.1 K/mm3 (4.0-10.0)
[2022-06-23] MEDS ORDERED: ERYTHROMYCIN 0.5% OPHTHALMIC OINTMENT 3.5 GM TUBE OU ONE (15:04)
[2022-06-23 15:07] LABS: ALBUMIN 2.3 g/dl (3.4-5.0); BLOOD UREA NITROGEN 22.9 mg/dL (7-18); CALCIUM 9.1 mg/dL (8.5-10.1)
[2022-06-23 15:10] LABS: CREATININE 0.4 mg/dL (0.55-1.3)
[2022-06-23 15:12] LABS: BILIRUBIN,TOTAL 0.2 mg/dL (0.2-1)
[2022-06-24] MEDS: LEVOTHYROXINE NA 50 MCG TABLET (FP) GT SCH (06:03)
[2022-06-24] MEDS: clonazePAM 0.5 MG TABLET GT SCH ×3 (06:03→21:30)
[2022-06-24] MEDS: ALBUTEROL SO4 0.083% IH SOL 2.5 MG/3 ML VIAL.NEB. NEB SCH ×4 (07:15→20:05)
[2022-06-24] MEDS: ACETYLCYSTEINE 20% 200MG/ML 4 ML VIAL *FOR ORAL / INH USE ONLY NEB SCH ×4 (07:15→20:05)
[2022-06-24 07:16] LABS: HEMATOCRIT 30.8 % (35.4-49); HEMOGLOBIN 10.4 GM/dL (11.7-16.9); MCH 32.1 pg (25.7-33.7); MCHC 33.6 g/dl (32.0-35.9); MEAN CELL VOLUME 95.6 fl (80-96); MEAN PLT VOLUME 8.8 fl (7.5-11.1); PLATELET COUNT 444 10^3/uL (134-434); RBC 3.23 M/mm3 (4.00-5.60); RDW 16.4 % (11.9-15.9); WHITE BLOOD COUNT 11.2 K/mm3 (4.0-10.0)
[2022-06-24 07:38] LABS: ALBUMIN 2.3 g/dl (3.4-5.0); BLOOD UREA NITROGEN 30.2 mg/dL (7-18)
[2022-06-24 07:41] LABS: CREATININE 0.4 mg/dL (0.55-1.3)
[2022-06-24 07:42] LABS: BILIRUBIN,TOTAL 0.2 mg/dL (0.2-1); TOT PROT 7.1 g/dl (6.4-8.2)
[2022-06-24] MEDS: AMINO ACIDS/PROTEIN HYDROLYS 30 ML LIQUID.PKT PO SCH (08:35)
[2022-06-24] MEDS: methylPREDNISolone NA SUCC 40 MG/1 ML VIAL IVPUSH SCH (09:35)
[2022-06-24] MEDS: SODIUM ZIRCONIUM CYCLOSILICATE (LOKELMA) 5 GM PACKET PO SCH (09:35)
[2022-06-24] MEDS: ENOXAPARIN NA (PORCINE) 40 MG/0.4 ML DISP.SYRIN SQ SCH (09:35)
[2022-06-24] MEDS: VALPROATE SODIUM 250 MG/5 ML UNIT DOSE CUP GT SCH ×2 (09:36→21:31)
[2022-06-24 18:38] LABS: EPI CELLS 5 /uL (0-25.1); HYALINE CASTS 35 /uL (0-3.1); PH,URINE 6.5 (5.0-8.0); URINE APPEARANCE CLOUDY; URINE BACTERIA >9,000 /uL (0-1359); URINE BILIRUBIN NEGATIVE (NEGATIVE); URINE COLOR YELLOW; URINE GLUCOSE (UA) NEGATIVE (NEGATIVE); URINE KETONE NEGATIVE (NEGATIVE); URINE LEUK ESTERASE 3+ (NEGATIVE); URINE NITRITE NEGATIVE (NEGATIVE); URINE PROTEIN 2+ (NEGATIVE); URINE RBC 12 /uL (0-23.9); URINE WBC 458 /uL (0-25.8)
[2022-06-25] MEDS: clonazePAM 0.5 MG TABLET GT SCH ×2 (06:30→07:48)
[2022-06-25] MEDS: LEVOTHYROXINE NA 50 MCG TABLET (FP) GT SCH ×2 (06:30→07:15)
[2022-06-25] MEDS ORDERED: VANCOMYCIN 1 GM in D5W (PRE-DOCKED) 1,000 MG/250 ML IVPB SCH ×2 (07:31→10:00)
[2022-06-25] MEDS ORDERED: VANCOMYCIN 1 GM/200 ML PREMIX BAG IVPB ONE ×2 (08:00→10:15)
[2022-06-25] MEDS: PIPERACILLIN/TAZOB 2.25 GM 2.25 GM in DEXTROSE 5%-WATER - 50 ML IVPB SCH ×4 (08:30→18:01)
[2022-06-25] MEDS: AMINO ACIDS/PROTEIN HYDROLYS 30 ML LIQUID.PKT PO SCH (08:36)
[2022-06-25] MEDS: ALBUTEROL SO4 0.083% IH SOL 2.5 MG/3 ML VIAL.NEB. NEB SCH ×4 (08:51→20:35)
[2022-06-25] MEDS: ACETYLCYSTEINE 20% 200MG/ML 4 ML VIAL *FOR ORAL / INH USE ONLY NEB SCH ×4 (08:51→20:35)
[2022-06-25] MEDS: methylPREDNISolone NA SUCC 40 MG/1 ML VIAL IVPUSH SCH (10:26)
[2022-06-25] MEDS: ENOXAPARIN NA (PORCINE) 40 MG/0.4 ML DISP.SYRIN SQ SCH (10:26)
[2022-06-25 10:49] LABS: HEMATOCRIT 33.4 % (35.4-49); HEMOGLOBIN 11.1 GM/dL (11.7-16.9); MCH 31.7 pg (25.7-33.7); MCHC 33.1 g/dl (32.0-35.9); MEAN CELL VOLUME 95.8 fl (80-96); MEAN PLT VOLUME 8.8 fl (7.5-11.1); PLATELET COUNT 460 10^3/uL (134-434); RBC 3.49 M/mm3 (4.00-5.60); RDW 15.8 % (11.9-15.9); WHITE BLOOD COUNT 11.4 K/mm3 (4.0-10.0)
[2022-06-25 11:10] LABS: ALBUMIN 2.4 g/dl (3.4-5.0); CALCIUM 9.1 mg/dL (8.5-10.1)
[2022-06-25 11:15] LABS: CREATININE 0.5 mg/dL (0.55-1.3)
[2022-06-25 11:16] LABS: BILIRUBIN,TOTAL 0.3 mg/dL (0.2-1); TOT PROT 7.3 g/dl (6.4-8.2)
[2022-06-25] MEDS: SODIUM ZIRCONIUM CYCLOSILICATE (LOKELMA) 5 GM PACKET PO SCH (11:38)
[2022-06-25] MEDS: VALPROATE SODIUM 250 MG/5 ML UNIT DOSE CUP GT SCH (12:25)
[2022-06-25] MEDS: clonazePAM 0.25 MG ODT TABLETS SL SCH ×3 (14:16→22:05)
[2022-06-25] MEDS ORDERED: TUBE FEED DECLOGGING SOLUTION 12,000 UNITS GT ONE ×2 (14:30)
[2022-06-25] MEDS: PIPERACILLIN/TAZOB 3.375 GM 3.375 GM in DEXTROSE 5%-WATER - 50 ML IVPB SCH (18:20)
[2022-06-25] MEDS: DEXTROSE 5% IVPB SCH (21:47)
[2022-06-25] MEDS: WATER IVPB SCH (21:47)
[2022-06-25] MEDS: VALPROATE SODIUM IVPB SCH (21:47)
[2022-06-25] MEDS ORDERED: VALPROATE SODIUM 500 MG/5 ML VIAL IVPB SCH (22:00)
[2022-06-26] MEDS: PIPERACILLIN/TAZOB 3.375 GM 3.375 GM in DEXTROSE 5%-WATER - 50 ML IVPB SCH ×3 (01:02→17:28)
[2022-06-26] MEDS: SCOPOLAMINE HYDROBROMIDE 1 PATCH PATCH.TD72 TD SCH (05:18)
[2022-06-26] MEDS: clonazePAM 0.25 MG ODT TABLETS SL SCH ×3 (06:19→21:30)
[2022-06-26] MEDS: LEVOTHYROXINE NA 50 MCG TABLET (FP) GT SCH (06:19)
[2022-06-26 06:56] LABS: HEMATOCRIT 32.6 % (35.4-49); HEMOGLOBIN 10.8 GM/dL (11.7-16.9); MCH 31.8 pg (25.7-33.7); MCHC 33.1 g/dl (32.0-35.9); MEAN PLT VOLUME 8.5 fl (7.5-11.1); PLATELET COUNT 511 10^3/uL (134-434); RDW 16.3 % (11.9-15.9); WHITE BLOOD COUNT 11.1 K/mm3 (4.0-10.0)
[2022-06-26 07:27] LABS: ALBUMIN 2.4 g/dl (3.4-5.0); BLOOD UREA NITROGEN 25.4 mg/dL (7-18)
[2022-06-26 07:28] LABS: CREATININE 0.6 mg/dL (0.55-1.3)
[2022-06-26 07:30] LABS: BILIRUBIN,TOTAL 1.2 mg/dL (0.2-1); TOT PROT 7.1 g/dl (6.4-8.2)
[2022-06-26] MEDS: ALBUTEROL SO4 0.083% IH SOL 2.5 MG/3 ML VIAL.NEB. NEB SCH ×4 (07:48→20:09)
[2022-06-26] MEDS: ACETYLCYSTEINE 20% 200MG/ML 4 ML VIAL *FOR ORAL / INH USE ONLY NEB SCH ×4 (07:48→20:08)
[2022-06-26 08:32] LABS: BILIRUBIN,DIRECT 0.1 mg/dL (0.0-0.2)
[2022-06-26] MEDS: AMINO ACIDS/PROTEIN HYDROLYS 30 ML LIQUID.PKT PO SCH (08:53)
[2022-06-26] MEDS: ENOXAPARIN NA (PORCINE) 40 MG/0.4 ML DISP.SYRIN SQ SCH (09:39)
[2022-06-26] MEDS: methylPREDNISolone NA SUCC 40 MG/1 ML VIAL IVPUSH SCH (09:39)
[2022-06-26] MEDS: VALPROATE SODIUM IVPB SCH ×2 (10:20→21:24)
[2022-06-26] MEDS: DEXTROSE 5% IVPB SCH ×2 (10:20→21:24)
[2022-06-26] MEDS: WATER IVPB SCH ×2 (10:20→21:24)
[2022-06-27] MEDS: PIPERACILLIN/TAZOB 3.375 GM 3.375 GM in DEXTROSE 5%-WATER - 50 ML IVPB SCH ×3 (01:06→17:24)
[2022-06-27] MEDS: clonazePAM 0.25 MG ODT TABLETS SL SCH ×3 (06:47→22:57)
[2022-06-27] MEDS: LEVOTHYROXINE NA 50 MCG TABLET (FP) GT SCH (06:47)
[2022-06-27 07:54] LABS: CALCIUM 9.1 mg/dL (8.5-10.1)
[2022-06-27 07:55] LABS: ALBUMIN 2.3 g/dl (3.4-5.0); BLOOD UREA NITROGEN 26.1 mg/dL (7-18)
[2022-06-27 07:58] LABS: CREATININE 0.6 mg/dL (0.55-1.3)
[2022-06-27 07:59] LABS: BILIRUBIN,TOTAL 0.3 mg/dL (0.2-1); TOT PROT 6.6 g/dl (6.4-8.2)
[2022-06-27] MEDS: AMINO ACIDS/PROTEIN HYDROLYS 30 ML LIQUID.PKT GT SCH (08:08)
[2022-06-27 08:43] LABS: HEMATOCRIT 31.3 % (35.4-49); HEMOGLOBIN 10.5 GM/dL (11.7-16.9); MCH 32.3 pg (25.7-33.7); MCHC 33.5 g/dl (32.0-35.9); MEAN CELL VOLUME 96.3 fl (80-96); MEAN PLT VOLUME 8.7 fl (7.5-11.1); PLATELET COUNT 500 10^3/uL (134-434); RBC 3.25 M/mm3 (4.00-5.60); RDW 16.3 % (11.9-15.9); WHITE BLOOD COUNT 10.7 K/mm3 (4.0-10.0)
[2022-06-27] MEDS: ALBUTEROL SO4 0.083% IH SOL 2.5 MG/3 ML VIAL.NEB. NEB SCH ×4 (09:00→19:57)
[2022-06-27] MEDS: ACETYLCYSTEINE 20% 200MG/ML 4 ML VIAL *FOR ORAL / INH USE ONLY NEB SCH ×4 (09:00→19:57)
[2022-06-27] MEDS ORDERED: ALBUTEROL SO4 0.083% IH SOL 2.5 MG/3 ML VIAL.NEB. NEB ONE (09:01)
[2022-06-27] MEDS: ENOXAPARIN NA (PORCINE) 40 MG/0.4 ML DISP.SYRIN SQ SCH (10:35)
[2022-06-27] MEDS: methylPREDNISolone NA SUCC 40 MG/1 ML VIAL IVPUSH SCH (10:35)
[2022-06-27] MEDS: WATER IVPB SCH ×2 (10:35→22:57)
[2022-06-27] MEDS: DEXTROSE 5% IVPB SCH ×2 (10:35→22:57)
[2022-06-27] MEDS: VALPROATE SODIUM IVPB SCH ×2 (10:35→22:57)
[2022-06-27] MEDS: MULTIVIT-MINERALS ORAL LIQUID GT SCH (10:36)
[2022-06-27] MEDS ORDERED: PIPERACILLIN/TAZOBACTAM 3.375 GM VIAL IVPB ONE (17:01)
[2022-06-28] MEDS: PIPERACILLIN/TAZOB 3.375 GM 3.375 GM in DEXTROSE 5%-WATER - 50 ML IVPB SCH ×3 (03:19→17:16)
[2022-06-28] MEDS: clonazePAM 0.25 MG ODT TABLETS SL SCH ×3 (06:31→22:51)
[2022-06-28] MEDS: LEVOTHYROXINE NA 50 MCG TABLET (FP) GT SCH (06:31)
[2022-06-28] MEDS: ALBUTEROL SO4 0.083% IH SOL 2.5 MG/3 ML VIAL.NEB. NEB SCH ×4 (07:15→20:23)
[2022-06-28] MEDS: ACETYLCYSTEINE 20% 200MG/ML 4 ML VIAL *FOR ORAL / INH USE ONLY NEB SCH ×4 (07:15→20:23)
[2022-06-28] MEDS: AMINO ACIDS/PROTEIN HYDROLYS 30 ML LIQUID.PKT GT SCH (07:53)
[2022-06-28 08:16] LABS: HEMATOCRIT 31.8 % (35.4-49); HEMOGLOBIN 10.6 GM/dL (11.7-16.9); MCH 32.1 pg (25.7-33.7); MCHC 33.4 g/dl (32.0-35.9); MEAN PLT VOLUME 9.7 fl (7.5-11.1); PLATELET COUNT 450 10^3/uL (134-434); RBC 3.31 M/mm3 (4.00-5.60); RDW 16.4 % (11.9-15.9); WHITE BLOOD COUNT 11.9 K/mm3 (4.0-10.0)
[2022-06-28 08:28] LABS: CALCIUM 8.8 mg/dL (8.5-10.1)
[2022-06-28 08:29] LABS: ALBUMIN 2.4 g/dl (3.4-5.0)
[2022-06-28 08:32] LABS: CREATININE 0.5 mg/dL (0.55-1.3)
[2022-06-28 08:34] LABS: BILIRUBIN,TOTAL 0.4 mg/dL (0.2-1)
[2022-06-28 08:35] LABS: TOT PROT 6.5 g/dl (6.4-8.2)
[2022-06-28] MEDS: MULTIVIT-MINERALS ORAL LIQUID GT SCH (11:36)
[2022-06-28] MEDS: predniSONE 10 MG TABLET (UD) GT SCH (11:36)
[2022-06-28] MEDS: ENOXAPARIN NA (PORCINE) 40 MG/0.4 ML DISP.SYRIN SQ SCH (11:37)
[2022-06-28] MEDS: DEXTROSE 5% IVPB SCH (14:34)
[2022-06-28] MEDS: VALPROATE SODIUM IVPB SCH (14:34)
[2022-06-28] MEDS: WATER IVPB SCH (14:34)
[2022-06-28] MEDS: VALPROATE SODIUM 250 MG/5 ML UNIT DOSE CUP GT SCH (22:51)
[2022-06-29] MEDS: PIPERACILLIN/TAZOB 3.375 GM 3.375 GM in DEXTROSE 5%-WATER - 50 ML IVPB SCH ×3 (02:50→18:00)
[2022-06-29] MEDS: SCOPOLAMINE HYDROBROMIDE 1 PATCH PATCH.TD72 TD SCH (06:29)
[2022-06-29] MEDS: clonazePAM 0.25 MG ODT TABLETS SL SCH ×3 (06:29→22:28)
[2022-06-29] MEDS: LEVOTHYROXINE NA 50 MCG TABLET (FP) GT SCH (06:29)
[2022-06-29 07:19] LABS: HEMATOCRIT 32.1 % (35.4-49); HEMOGLOBIN 10.6 GM/dL (11.7-16.9); MCH 32.7 pg (25.7-33.7); MCHC 33.2 g/dl (32.0-35.9); MEAN CELL VOLUME 98.5 fl (80-96); MEAN PLT VOLUME 8.5 fl (7.5-11.1); PLATELET COUNT 433 10^3/uL (134-434); RBC 3.26 M/mm3 (4.00-5.60); RDW 16.2 % (11.9-15.9); WHITE BLOOD COUNT 11.1 K/mm3 (4.0-10.0)
[2022-06-29] MEDS: ACETYLCYSTEINE 20% 200MG/ML 4 ML VIAL *FOR ORAL / INH USE ONLY NEB SCH ×4 (07:30→20:26)
[2022-06-29] MEDS: ALBUTEROL SO4 0.083% IH SOL 2.5 MG/3 ML VIAL.NEB. NEB SCH ×4 (07:30→20:25)
[2022-06-29 07:42] LABS: ALBUMIN 2.4 g/dl (3.4-5.0); CREATININE 0.6 mg/dL (0.55-1.3)
[2022-06-29 07:44] LABS: BILIRUBIN,TOTAL 0.3 mg/dL (0.2-1); TOT PROT 6.5 g/dl (6.4-8.2)
[2022-06-29 08:02] LABS: BLOOD UREA NITROGEN 17.2 mg/dL (7-18)
[2022-06-29] MEDS: ENOXAPARIN NA (PORCINE) 40 MG/0.4 ML DISP.SYRIN SQ SCH (09:17)
[2022-06-29] MEDS: AMINO ACIDS/PROTEIN HYDROLYS 30 ML LIQUID.PKT GT SCH (09:17)
[2022-06-29] MEDS: predniSONE 10 MG TABLET (UD) GT SCH (09:17)
[2022-06-29] MEDS: MULTIVIT-MINERALS ORAL LIQUID GT SCH (09:17)
[2022-06-29] MEDS: VALPROATE SODIUM 250 MG/5 ML UNIT DOSE CUP GT SCH ×2 (09:18→22:29)
[2022-06-30] MEDS: PIPERACILLIN/TAZOB 3.375 GM 3.375 GM in DEXTROSE 5%-WATER - 50 ML IVPB SCH ×3 (01:11→18:28)
[2022-06-30] MEDS: clonazePAM 0.25 MG ODT TABLETS SL SCH ×3 (05:37→21:20)
[2022-06-30] MEDS: LEVOTHYROXINE NA 50 MCG TABLET (FP) GT SCH (06:04)
[2022-06-30 07:30] LABS: ALBUMIN 2.5 g/dl (3.4-5.0); BLOOD UREA NITROGEN 17.6 mg/dL (7-18); CALCIUM 9.1 mg/dL (8.5-10.1); MAGNESIUM 2.1 mg/dL (1.8-2.4)
[2022-06-30 07:33] LABS: CREATININE 0.5 mg/dL (0.55-1.3); PHOSPHOROUS 3.7 mg/dL (2.5-4.9)
[2022-06-30 07:35] LABS: BILIRUBIN,TOTAL 0.3 mg/dL (0.2-1); TOT PROT 6.9 g/dl (6.4-8.2)
[2022-06-30] MEDS: ALBUTEROL SO4 0.083% IH SOL 2.5 MG/3 ML VIAL.NEB. NEB SCH ×4 (07:55→20:25)
[2022-06-30] MEDS: ACETYLCYSTEINE 20% 200MG/ML 4 ML VIAL *FOR ORAL / INH USE ONLY NEB SCH ×4 (07:55→20:25)
[2022-06-30] MEDS: AMINO ACIDS/PROTEIN HYDROLYS 30 ML LIQUID.PKT GT SCH (09:13)
[2022-06-30] MEDS: MULTIVIT-MINERALS ORAL LIQUID GT SCH (10:59)
[2022-06-30] MEDS: VALPROATE SODIUM 250 MG/5 ML UNIT DOSE CUP GT SCH ×2 (10:59→21:20)
[2022-06-30] MEDS: ENOXAPARIN NA (PORCINE) 40 MG/0.4 ML DISP.SYRIN SQ SCH (10:59)
[2022-06-30] MEDS: ASCORBIC ACID 250 MG TABLET (FP) GT SCH (11:00)
[2022-06-30] MEDS: ZINC SULFATE 220 MG CAPSULE (FP) GT SCH (11:00)
[2022-06-30] MEDS: predniSONE 10 MG TABLET (UD) GT SCH (11:00)
[2022-07-01] MEDS: PIPERACILLIN/TAZOB 3.375 GM 3.375 GM in DEXTROSE 5%-WATER - 50 ML IVPB SCH ×2 (02:58→10:28)
[2022-07-01] MEDS: clonazePAM 0.25 MG ODT TABLETS SL SCH ×3 (06:25→22:18)
[2022-07-01] MEDS: LEVOTHYROXINE NA 50 MCG TABLET (FP) GT SCH (06:25)
[2022-07-01] MEDS: ACETYLCYSTEINE 20% 200MG/ML 4 ML VIAL *FOR ORAL / INH USE ONLY NEB SCH ×4 (08:18→20:48)
[2022-07-01] MEDS: ALBUTEROL SO4 0.083% IH SOL 2.5 MG/3 ML VIAL.NEB. NEB SCH ×4 (08:18→20:47)
[2022-07-01] MEDS: AMINO ACIDS/PROTEIN HYDROLYS 30 ML LIQUID.PKT GT SCH (09:17)
[2022-07-01] MEDS: ENOXAPARIN NA (PORCINE) 40 MG/0.4 ML DISP.SYRIN SQ SCH (10:26)
[2022-07-01] MEDS: VALPROATE SODIUM 250 MG/5 ML UNIT DOSE CUP GT SCH ×2 (10:26→22:18)
[2022-07-01] MEDS: predniSONE 10 MG TABLET (UD) GT SCH (10:28)
[2022-07-01] MEDS: ASCORBIC ACID 250 MG TABLET (FP) GT SCH (10:28)
[2022-07-01] MEDS: MULTIVIT-MINERALS ORAL LIQUID GT SCH (10:28)
[2022-07-01] MEDS: ZINC SULFATE 220 MG CAPSULE (FP) GT SCH (10:28)
[2022-07-02] MEDS: SCOPOLAMINE HYDROBROMIDE 1 PATCH PATCH.TD72 TD SCH (04:47)
[2022-07-02] MEDS: clonazePAM 0.25 MG ODT TABLETS SL SCH (05:53)
[2022-07-02] MEDS: LEVOTHYROXINE NA 50 MCG TABLET (FP) GT SCH (06:11)
[2022-07-02 07:38] LABS: HEMATOCRIT 33.4 % (35.4-49); HEMOGLOBIN 10.8 GM/dL (11.7-16.9); MCH 31.4 pg (25.7-33.7); MCHC 32.3 g/dl (32.0-35.9); MEAN CELL VOLUME 97.2 fl (80-96); MEAN PLT VOLUME 9.1 fl (7.5-11.1); PLATELET COUNT 325 10^3/uL (134-434); RBC 3.43 M/mm3 (4.00-5.60); RDW 16.3 % (11.9-15.9); WHITE BLOOD COUNT 14.9 K/mm3 (4.0-10.0)
[2022-07-02] MEDS: ALBUTEROL SO4 0.083% IH SOL 2.5 MG/3 ML VIAL.NEB. NEB SCH ×3 (07:55→15:53)
[2022-07-02] MEDS: ACETYLCYSTEINE 20% 200MG/ML 4 ML VIAL *FOR ORAL / INH USE ONLY NEB SCH ×4 (07:55→20:30)
[2022-07-02 08:06] LABS: BLOOD UREA NITROGEN 15.9 mg/dL (7-18)
[2022-07-02 08:09] LABS: CREATININE 0.3 mg/dL (0.55-1.3)
[2022-07-02] MEDS: MULTIVIT-MINERALS ORAL LIQUID GT SCH (10:22)
[2022-07-02] MEDS: predniSONE 10 MG TABLET (UD) GT SCH (10:22)
[2022-07-02] MEDS: AMINO ACIDS/PROTEIN HYDROLYS 30 ML LIQUID.PKT GT SCH (10:22)
[2022-07-02] MEDS: VALPROATE SODIUM 250 MG/5 ML UNIT DOSE CUP GT SCH (10:23)
[2022-07-02] MEDS: ASCORBIC ACID 250 MG TABLET (FP) GT SCH (10:23)
[2022-07-02] MEDS: ZINC SULFATE 220 MG CAPSULE (FP) GT SCH (10:23)
[2022-07-02] MEDS: ENOXAPARIN NA (PORCINE) 40 MG/0.4 ML DISP.SYRIN SQ SCH (10:23)
[2022-07-02] MEDS ORDERED: clonazePAM 0.25 MG ODT TABLETS SL SCH (23:39)
[2022-07-03] MEDS: VALPROATE SODIUM 250 MG/5 ML UNIT DOSE CUP GT SCH ×2 (00:16→14:49)
[2022-07-03] MEDS ORDERED: ACETAMINOPHEN 325 MG TABLET (FP) PO ONE (00:16)
[2022-07-03] MEDS ORDERED: clonazePAM 0.25 MG ODT TABLETS SL SCH (06:00)
[2022-07-03] MEDS: clonazePAM 0.25 MG ODT TABLETS SL SCH ×2 (06:33→14:50)
[2022-07-03] MEDS: LEVOTHYROXINE NA 50 MCG TABLET (FP) GT SCH (06:33)
[2022-07-03 08:24] LABS: BASO % 0.8 % (0-2.0); EOS % 0.5 % (0-4.5); HEMATOCRIT 33.7 % (35.4-49); MCH 31.7 pg (25.7-33.7); MCHC 32.5 g/dl (32.0-35.9); MEAN CELL VOLUME 97.4 fl (80-96); MEAN PLT VOLUME 9.9 fl (7.5-11.1); MONO % 4.4 % (3.8-10.2); NEUT % 57.3 % (42.8-82.8); PLATELET COUNT 276 10^3/uL (134-434); RBC 3.46 M/mm3 (4.00-5.60); RDW 15.7 % (11.9-15.9); WHITE BLOOD COUNT 13.4 K/mm3 (4.0-10.0)
[2022-07-03] MEDS: ACETYLCYSTEINE 20% 200MG/ML 4 ML VIAL *FOR ORAL / INH USE ONLY NEB SCH ×4 (08:49→20:00)
[2022-07-03 09:15] LABS: CALCIUM 9.3 mg/dL (8.5-10.1)
[2022-07-03 09:16] LABS: BLOOD UREA NITROGEN 17.4 mg/dL (7-18); CREATININE 0.5 mg/dL (0.55-1.3)
[2022-07-03] MEDS: MULTIVIT-MINERALS ORAL LIQUID GT SCH (09:52)
[2022-07-03] MEDS: predniSONE 10 MG TABLET (UD) GT SCH (09:53)
[2022-07-03] MEDS: ENOXAPARIN NA (PORCINE) 40 MG/0.4 ML DISP.SYRIN SQ SCH (09:53)
[2022-07-03] MEDS: AMINO ACIDS/PROTEIN HYDROLYS 30 ML LIQUID.PKT GT SCH (09:53)
[2022-07-03] MEDS: ZINC SULFATE 220 MG CAPSULE (FP) GT SCH (09:53)
[2022-07-03] MEDS: ASCORBIC ACID 250 MG TABLET (FP) GT SCH (09:54)
[2022-07-03] MEDS: ALBUTEROL SO4 0.083% IH SOL 2.5 MG/3 ML VIAL.NEB. NEB SCH ×2 (16:40→20:00)
[2022-07-03 16:47] VITALS: BP 114/65; PULSE 72; RESP 22; TEMP 97.4
== END 2022-07-03 20:00 | DRG 720 ==
LOC: JER 11:47 → JERBED 14:49 → J4W 06-12 00:10
PROVIDERS: ADMIT Internal Medicine; ATTEND Internal Medicine
DX: A41.9 Sepsis, unspecified organism (principal); J69.0 Pneumonitis due to inhalation of food and vomit; J96.02 Acute respiratory failure with hypercapnia; J96.01 Acute respiratory failure with hypoxia; K21.9 Gastro-esophageal reflux disease without esophagitis; E87.1 Hypo-osmolality and hyponatremia; J98.11 Atelectasis; E87.2 Acidosis; E03.9 Hypothyroidism, unspecified; N39.0 Urinary tract infection, site not specified; H54.3 Unqualified visual loss, both eyes; D72.0 Genetic anomalies of leukocytes; G40.909 Epilepsy, unspecified, not intractable, without status epilepticus; T17.590A Other foreign object in bronchus causing asphyxiation, initial encounter; R53.2 Functional quadriplegia; R68.0 Hypothermia, not associated with low environmental temperature; Z93.1 Gastrostomy status; M86.672 Other chronic osteomyelitis, left ankle and foot; E86.0 Dehydration; F03.90 Unspecified dementia, unspecified severity, without behavioral disturbance, psychotic disturbance, mood disturbance, and anxiety; M41.9 Scoliosis, unspecified; B96.20 Unspecified Escherichia coli [E. coli] as the cause of diseases classified elsewhere; B96.5 Pseudomonas (aeruginosa) (mallei) (pseudomallei) as the cause of diseases classified elsewhere; B95.2 Enterococcus as the cause of diseases classified elsewhere; F79 Unspecified intellectual disabilities; Z66 Do not resuscitate
CPT/HCPCS: 0241U-QW; 36415; 36600; 71045-TC-FY; 76705-TC; 80048; 80053; 81003; 82248; 82272; 82607; 82728; 82746; 82803; 82962; 83540; 83550; 83605; 83735; 84100; 84466; 84484; 85025; 85027; 85045; 85610; 85730; 86850; 86900; 86901; 87040; 87081; 87086; 87186; 93005; 93010; 93971-TC; 94640; 94660; 99291; C9803-CS; U0003; U0005

== ENCOUNTER 2022-07-08 09:57 | Inpatient (IN) | payer OTHER ==
[2022-07-08 10:19] VITALS: BMI 25.4
[2022-07-08 11:11] LABS: ARTERIAL BLOOD GAS BASE EXCESS 5.7 mmol/L (-2-2); ARTERIAL BLOOD GAS PO2 72.1 mmHg (80-100); ARTERIAL BLOOD GAS pH 7.445 (7.350-7.450)
[2022-07-08 11:18] LABS: BASO % 0.3 % (0-2.0); EOS % 0.2 % (0-4.5); HEMOGLOBIN 11.7 GM/dL (11.7-16.9); LYMPH % 13.9 % (8-40); MCH 31.1 pg (25.7-33.7); MCHC 32.5 g/dl (32.0-35.9); MEAN CELL VOLUME 95.7 fl (80-96); MEAN PLT VOLUME 9.5 fl (7.5-11.1); MONO % 18.3 % (3.8-10.2); NEUT % 67.3 % (42.8-82.8); PLATELET COUNT 183 10^3/uL (134-434); RBC 3.76 M/mm3 (4.00-5.60); RDW 15.2 % (11.9-15.9); WHITE BLOOD COUNT 5.6 K/mm3 (4.0-10.0)
[2022-07-08 11:32] LABS: INR 0.95 (0.83-1.09); PROTHROMBIN TIME (PATIENT) 10.9 SEC (9.7-13.0)
[2022-07-08 11:35] LABS: ACTIVATED PTT 38.5 SECONDS (25.2-36.5)
[2022-07-08 11:41] LABS: ALBUMIN 2.6 g/dl (3.4-5.0); BLOOD UREA NITROGEN 11.1 mg/dL (7-18)
[2022-07-08 11:43] LABS: CREATININE 0.5 mg/dL (0.55-1.3)
[2022-07-08 11:44] LABS: TOT PROT 7.1 g/dl (6.4-8.2)
[2022-07-08 11:45] LABS: BILIRUBIN,TOTAL 0.3 mg/dL (0.2-1)
[2022-07-08 11:52] LABS: N-TERMINAL BNP 202.9 pg/ml (5-125)
[2022-07-08 12:10] LABS: PH,URINE 6.5 (5.0-8.0); URINE APPEARANCE CLEAR; URINE BILIRUBIN NEGATIVE (NEGATIVE); URINE COLOR YELLOW; URINE GLUCOSE (UA) NEGATIVE (NEGATIVE); URINE KETONE NEGATIVE (NEGATIVE); URINE LEUK ESTERASE 2+ (NEGATIVE); URINE NITRITE NEGATIVE (NEGATIVE); URINE PROTEIN NEGATIVE (NEGATIVE); URINE UROBILINOGEN 0.2 mg/dL (0.2-1.0)
[2022-07-08] MEDS ORDERED: PIPERACILLIN/TAZOB 4.5 GM 4.5 GM in DEXTROSE 5%-WATER 100 ML IVPB ONE (12:19)
[2022-07-08] MEDS ORDERED: VANCOMYCIN 1 GM in D5W (PRE-DOCKED) 1,000 MG/250 ML IVPB ONE (12:19)
[2022-07-08] MEDS ORDERED: SODIUM CHLORIDE 0.9% 500 ML INFUS.BAG IV ONE (12:20)
[2022-07-08] MEDS ORDERED: PIPERACILLIN/TAZOB 4.5 GM 4.5 GM/100 ML BAG IVPB ONE (12:34)
[2022-07-08] MEDS ORDERED: VANCOMYCIN/WATER FOR INJ (PEG) 1,000 MG/200 ML BAG IVPB ONE (12:34)
[2022-07-08] MEDS ORDERED: SENNOSIDES 8.6MG TABLET (FP) PO PRN (13:36)
[2022-07-08 13:45] LABS: EPI CELLS 39.5 /uL (0-25.1); HYALINE CASTS 0.12 /uL (0-3.1); URINE BACTERIA 2846.5 /uL (0-1359); URINE WBC 34.5 /uL (0-25.8)
[2022-07-08] MEDS ORDERED: clonazePAM 0.5 MG TABLET ONE (14:41)
[2022-07-08] MEDS: clonazePAM 0.5 MG TABLET GT SCH (14:49)
[2022-07-08] MEDS: SODIUM CHLORIDE 1,000 ML IV SCH (15:24)
[2022-07-08] MEDS ORDERED: ALBUTEROL SO4 0.083% IH SOL 2.5 MG/3 ML VIAL.NEB. NEB ONE (16:45)
[2022-07-08] MEDS ORDERED: ACETYLCYSTEINE 20% 200MG/ML 4 ML VIAL *FOR ORAL / INH USE ONLY ONE (16:45)
[2022-07-08] MEDS: ALBUTEROL SO4 0.083% IH SOL 2.5 MG/3 ML VIAL.NEB. NEB SCH (16:50)
[2022-07-08] MEDS: ACETYLCYSTEINE 20% 200MG/ML 30 ML VIAL *FOR ORAL / INH USE ONLY NEB SCH (16:50)
[2022-07-08] MEDS ORDERED: PIPERACILLIN/TAZOB 3.375 GM 3.375 GM/50 ML BAG IVPB ONE (17:50)
[2022-07-08] MEDS ORDERED: PIPERACILLIN/TAZOB 3.375 GM 3.375 GM in DEXTROSE 5%-WATER - 50 ML IVPB SCH (18:00)
[2022-07-08] MEDS: PIPERACILLIN/TAZOB 3.375 GM 3.375 GM in DEXTROSE 5%-WATER - 50 ML IVPB SCH (18:24)
[2022-07-08] MEDS ORDERED: DIVALPROEX SODIUM 125 MG SPRINKLE CAPS PO SCH (22:00)
[2022-07-09] MEDS ORDERED: clonazePAM 0.5 MG TABLET ONE ×2 (00:21→06:39)
[2022-07-09] MEDS ORDERED: ALBUTEROL SO4 0.083% IH SOL 2.5 MG/3 ML VIAL.NEB. NEB ONE ×2 (00:21→13:12)
[2022-07-09] MEDS ORDERED: DIVALPROEX SODIUM 125 MG TABLET E.C. ONE (00:21)
[2022-07-09] MEDS ORDERED: PIPERACILLIN/TAZOB 3.375 GM 3.375 GM/50 ML BAG IVPB ONE ×2 (00:22→09:28)
[2022-07-09] MEDS ORDERED: ACETYLCYSTEINE 20% 200MG/ML 4 ML VIAL *FOR ORAL / INH USE ONLY ONE ×3 (00:23→13:12)
[2022-07-09] MEDS: ACETYLCYSTEINE 20% 200MG/ML 30 ML VIAL *FOR ORAL / INH USE ONLY NEB SCH (00:29)
[2022-07-09] MEDS: ALBUTEROL SO4 0.083% IH SOL 2.5 MG/3 ML VIAL.NEB. NEB SCH ×5 (00:29→20:15)
[2022-07-09] MEDS: VALPROATE SODIUM 250 MG/5 ML UNIT DOSE CUP PO SCH ×4 (00:30→22:37)
[2022-07-09] MEDS: clonazePAM 0.5 MG TABLET GT SCH ×6 (00:30→22:37)
[2022-07-09] MEDS: PIPERACILLIN/TAZOB 3.375 GM 3.375 GM in DEXTROSE 5%-WATER - 50 ML IVPB SCH ×3 (01:30→17:15)
[2022-07-09] MEDS: LEVOTHYROXINE NA 50 MCG TABLET (FP) GT SCH ×2 (06:16→06:44)
[2022-07-09] MEDS ORDERED: LEVOTHYROXINE NA 50 MCG TABLET (FP) ONE (06:39)
[2022-07-09] MEDS: SODIUM CHLORIDE 1,000 ML IV SCH ×2 (06:50→15:28)
[2022-07-09] MEDS ORDERED: ALBUTEROL SO4 0.5 % INH SOLN 2.5 MG/0.5 ML VIAL.NEB. NEB ONE (09:27)
[2022-07-09] MEDS ORDERED: VANCOMYCIN/WATER FOR INJ (PEG) 1,000 MG/200 ML BAG IVPB ONE (09:27)
[2022-07-09] MEDS ORDERED: VANCOMYCIN 1 GM/200 ML PREMIX BAG IVPB SCH ×2 (10:00)
[2022-07-09] MEDS: ACETYLCYSTEINE 20% 200MG/ML 4 ML VIAL *FOR ORAL / INH USE ONLY NEB SCH ×4 (10:42→20:15)
[2022-07-09] MEDS: ZINC OXIDE 20% TOPICAL OINTMENT 30 GM TUBE TP SCH ×2 (15:28→22:38)
[2022-07-09 17:44] LABS: EPI CELLS 35 /uL (0-25.1); HYALINE CASTS 1 /uL (0-3.1); PH,URINE 5.5 (5.0-8.0); URINE APPEARANCE CLEAR; URINE BACTERIA 3325 /uL (0-1359); URINE BILIRUBIN NEGATIVE (NEGATIVE); URINE COLOR YELLOW; URINE GLUCOSE (UA) NEGATIVE (NEGATIVE); URINE KETONE NEGATIVE (NEGATIVE); URINE LEUK ESTERASE 2+ (NEGATIVE); URINE NITRITE NEGATIVE (NEGATIVE); URINE PROTEIN TRACE (NEGATIVE); URINE RBC 8 /uL (0-23.9); URINE WBC 65 /uL (0-25.8)
[2022-07-09 18:17] LABS: YEAST MODERATE (NEGATIVE)
[2022-07-09 18:42] LABS: BLOOD UREA NITROGEN 16.6 mg/dL (7-18); CALCIUM 8.4 mg/dL (8.5-10.1)
[2022-07-09 18:45] LABS: CREATININE 0.8 mg/dL (0.55-1.3)
[2022-07-10] MEDS: SODIUM CHLORIDE 1,000 ML IV SCH ×2 (02:20→15:28)
[2022-07-10] MEDS: PIPERACILLIN/TAZOB 3.375 GM 3.375 GM in DEXTROSE 5%-WATER - 50 ML IVPB SCH ×3 (02:20→18:22)
[2022-07-10] MEDS: LEVOTHYROXINE NA 50 MCG TABLET (FP) GT SCH (06:08)
[2022-07-10] MEDS: clonazePAM 0.5 MG TABLET GT SCH ×4 (06:08→23:58)
[2022-07-10] MEDS: ACETYLCYSTEINE 20% 200MG/ML 4 ML VIAL *FOR ORAL / INH USE ONLY NEB SCH ×4 (07:20→20:20)
[2022-07-10] MEDS: ALBUTEROL SO4 0.083% IH SOL 2.5 MG/3 ML VIAL.NEB. NEB SCH ×4 (07:20→20:21)
[2022-07-10] MEDS: ENOXAPARIN NA (PORCINE) 40 MG/0.4 ML DISP.SYRIN SQ SCH (10:07)
[2022-07-10] MEDS: VALPROATE SODIUM 250 MG/5 ML UNIT DOSE CUP PO SCH ×3 (10:07→23:58)
[2022-07-10] MEDS: ZINC OXIDE 20% TOPICAL OINTMENT 30 GM TUBE TP SCH ×2 (10:07→22:22)
[2022-07-10] MEDS ORDERED: TUBE FEED DECLOGGING SOLUTION 12,000 UNITS NR ONE (23:01)
[2022-07-11] MEDS: PIPERACILLIN/TAZOB 3.375 GM 3.375 GM in DEXTROSE 5%-WATER - 50 ML IVPB SCH ×3 (02:02→17:49)
[2022-07-11] MEDS: SODIUM CHLORIDE 1,000 ML IV SCH ×2 (03:25→17:48)
[2022-07-11] MEDS: clonazePAM 0.5 MG TABLET GT SCH ×3 (05:42→21:49)
[2022-07-11] MEDS: LEVOTHYROXINE NA 50 MCG TABLET (FP) GT SCH (06:40)
[2022-07-11] MEDS: ACETYLCYSTEINE 20% 200MG/ML 4 ML VIAL *FOR ORAL / INH USE ONLY NEB SCH ×4 (07:45→20:05)
[2022-07-11] MEDS: ALBUTEROL SO4 0.083% IH SOL 2.5 MG/3 ML VIAL.NEB. NEB SCH ×4 (07:45→20:05)
[2022-07-11 08:10] LABS: BASO % 0.4 % (0-2.0); EOS % 0.4 % (0-4.5); HEMATOCRIT 26.3 % (35.4-49); HEMOGLOBIN 8.9 GM/dL (11.7-16.9); LYMPH % 49.2 % (8-40); MCH 32.6 pg (25.7-33.7); MCHC 33.7 g/dl (32.0-35.9); MEAN CELL VOLUME 96.6 fl (80-96); MONO % 12.1 % (3.8-10.2); NEUT % 37.9 % (42.8-82.8); PLATELET COUNT 159 10^3/uL (134-434); RBC 2.72 M/mm3 (4.00-5.60); RDW 15.6 % (11.9-15.9); WHITE BLOOD COUNT 5.6 K/mm3 (4.0-10.0)
[2022-07-11 08:39] LABS: CALCIUM 7.7 mg/dL (8.5-10.1)
[2022-07-11 08:42] LABS: CREATININE 0.5 mg/dL (0.55-1.3)
[2022-07-11 08:44] LABS: BILIRUBIN,TOTAL 0.3 mg/dL (0.2-1)
[2022-07-11 08:46] LABS: ALBUMIN 1.4 g/dl (3.4-5.0); TOT PROT 4.5 g/dl (6.4-8.2)
[2022-07-11] MEDS: VALPROATE SODIUM 250 MG/5 ML UNIT DOSE CUP PO SCH ×2 (10:48→21:49)
[2022-07-11] MEDS: ENOXAPARIN NA (PORCINE) 40 MG/0.4 ML DISP.SYRIN SQ SCH (10:49)
[2022-07-11] MEDS: ZINC OXIDE 20% TOPICAL OINTMENT 30 GM TUBE TP SCH ×2 (10:52→21:49)
[2022-07-12] MEDS: PIPERACILLIN/TAZOB 3.375 GM 3.375 GM in DEXTROSE 5%-WATER - 50 ML IVPB SCH ×3 (01:50→17:15)
[2022-07-12] MEDS: clonazePAM 0.5 MG TABLET GT SCH ×3 (06:10→21:54)
[2022-07-12] MEDS: LEVOTHYROXINE NA 50 MCG TABLET (FP) GT SCH (06:10)
[2022-07-12] MEDS: ALBUTEROL SO4 0.083% IH SOL 2.5 MG/3 ML VIAL.NEB. NEB SCH ×4 (07:40→20:34)
[2022-07-12] MEDS: ACETYLCYSTEINE 20% 200MG/ML 4 ML VIAL *FOR ORAL / INH USE ONLY NEB SCH ×4 (07:40→20:34)
[2022-07-12 08:08] LABS: BASO % 0.4 % (0-2.0); EOS % 1.7 % (0-4.5); HEMOGLOBIN 8.8 GM/dL (11.7-16.9); LYMPH % 54.7 % (8-40); MCH 32.2 pg (25.7-33.7); MCHC 33.7 g/dl (32.0-35.9); MEAN CELL VOLUME 95.7 fl (80-96); MEAN PLT VOLUME 8.7 fl (7.5-11.1); MONO % 9.2 % (3.8-10.2); PLATELET COUNT 149 10^3/uL (134-434); RBC 2.72 M/mm3 (4.00-5.60); RDW 15.3 % (11.9-15.9); WHITE BLOOD COUNT 4.9 K/mm3 (4.0-10.0)
[2022-07-12 08:37] LABS: BLOOD UREA NITROGEN 10.5 mg/dL (7-18); CALCIUM 8.3 mg/dL (8.5-10.1)
[2022-07-12 08:38] LABS: ALBUMIN 1.4 g/dl (3.4-5.0)
[2022-07-12 08:40] LABS: BILIRUBIN,TOTAL 0.2 mg/dL (0.2-1); CREATININE 0.3 mg/dL (0.55-1.3)
[2022-07-12 08:41] LABS: TOT PROT 4.6 g/dl (6.4-8.2)
[2022-07-12] MEDS: VALPROATE SODIUM 250 MG/5 ML UNIT DOSE CUP PO SCH ×2 (09:42→21:55)
[2022-07-12] MEDS: ENOXAPARIN NA (PORCINE) 40 MG/0.4 ML DISP.SYRIN SQ SCH (09:42)
[2022-07-12] MEDS: ZINC OXIDE 20% TOPICAL OINTMENT 30 GM TUBE TP SCH ×2 (09:42→21:55)
[2022-07-12] MEDS: SODIUM CHLORIDE 1,000 ML IV SCH (14:22)
[2022-07-13] MEDS: PIPERACILLIN/TAZOB 3.375 GM 3.375 GM in DEXTROSE 5%-WATER - 50 ML IVPB SCH ×3 (01:04→18:30)
[2022-07-13] MEDS: LEVOTHYROXINE NA 50 MCG TABLET (FP) GT SCH (06:09)
[2022-07-13] MEDS: clonazePAM 0.5 MG TABLET GT SCH ×3 (06:09→21:24)
[2022-07-13] MEDS: ALBUTEROL SO4 0.083% IH SOL 2.5 MG/3 ML VIAL.NEB. NEB SCH ×2 (08:05→11:52)
[2022-07-13] MEDS: ACETYLCYSTEINE 20% 200MG/ML 4 ML VIAL *FOR ORAL / INH USE ONLY NEB SCH ×4 (08:05→19:33)
[2022-07-13] MEDS: ENOXAPARIN NA (PORCINE) 40 MG/0.4 ML DISP.SYRIN SQ SCH (09:13)
[2022-07-13] MEDS: ZINC OXIDE 20% TOPICAL OINTMENT 30 GM TUBE TP SCH ×2 (09:13→21:27)
[2022-07-13] MEDS: VALPROATE SODIUM 250 MG/5 ML UNIT DOSE CUP PO SCH ×2 (09:13→21:24)
[2022-07-13 17:31] LABS: BASO % 0.3 % (0-2.0); EOS % 1.1 % (0-4.5); HEMATOCRIT 26.3 % (35.4-49); HEMOGLOBIN 8.4 GM/dL (11.7-16.9); LYMPH % 35.9 % (8-40); MCH 31.3 pg (25.7-33.7); MEAN CELL VOLUME 97.6 fl (80-96); MEAN PLT VOLUME 8.3 fl (7.5-11.1); MONO % 8.9 % (3.8-10.2); NEUT % 53.8 % (42.8-82.8); PLATELET COUNT 130 10^3/uL (134-434); RDW 15.2 % (11.9-15.9); WHITE BLOOD COUNT 7.3 K/mm3 (4.0-10.0)
[2022-07-13] MEDS: SODIUM CHLORIDE 1,000 ML IV SCH (21:24)
[2022-07-14] MEDS: PIPERACILLIN/TAZOB 3.375 GM 3.375 GM in DEXTROSE 5%-WATER - 50 ML IVPB SCH ×3 (01:39→17:28)
[2022-07-14] MEDS: clonazePAM 0.5 MG TABLET GT SCH ×3 (06:06→21:38)
[2022-07-14] MEDS: LEVOTHYROXINE NA 50 MCG TABLET (FP) GT SCH (06:06)
[2022-07-14] MEDS: ACETYLCYSTEINE 20% 200MG/ML 4 ML VIAL *FOR ORAL / INH USE ONLY NEB SCH ×5 (07:55→20:22)
[2022-07-14] MEDS: ENOXAPARIN NA (PORCINE) 40 MG/0.4 ML DISP.SYRIN SQ SCH (09:12)
[2022-07-14] MEDS: VALPROATE SODIUM 250 MG/5 ML UNIT DOSE CUP PO SCH ×2 (09:12→21:38)
[2022-07-14] MEDS: MULTIVITAMINS (DAILY MVI) TABLET (FP) PO SCH (09:12)
[2022-07-14] MEDS: ZINC OXIDE 20% TOPICAL OINTMENT 30 GM TUBE TP SCH ×2 (09:12→21:38)
[2022-07-14 10:22] LABS: HEMATOCRIT 27.7 % (35.4-49); HEMOGLOBIN 9.1 GM/dL (11.7-16.9); MCH 31.7 pg (25.7-33.7); MCHC 32.9 g/dl (32.0-35.9); MEAN CELL VOLUME 96.3 fl (80-96); MEAN PLT VOLUME 8.4 fl (7.5-11.1); PLATELET COUNT 137 10^3/uL (134-434); RBC 2.88 M/mm3 (4.00-5.60); RDW 15.2 % (11.9-15.9); WHITE BLOOD COUNT 6.4 K/mm3 (4.0-10.0)
[2022-07-14 10:37] LABS: CREATININE 0.4 mg/dL (0.55-1.3)
[2022-07-14 10:42] LABS: CALCIUM 8.4 mg/dL (8.5-10.1)
[2022-07-14] MEDS: SODIUM CHLORIDE 1,000 ML IV SCH (13:35)
[2022-07-15] MEDS: PIPERACILLIN/TAZOB 3.375 GM 3.375 GM in DEXTROSE 5%-WATER - 50 ML IVPB SCH ×3 (01:28→17:16)
[2022-07-15] MEDS: LEVOTHYROXINE NA 50 MCG TABLET (FP) GT SCH (06:17)
[2022-07-15] MEDS: clonazePAM 0.5 MG TABLET GT SCH ×3 (06:18→21:45)
[2022-07-15] MEDS: ACETYLCYSTEINE 20% 200MG/ML 4 ML VIAL *FOR ORAL / INH USE ONLY NEB SCH ×4 (07:41→19:45)
[2022-07-15 07:53] LABS: HEMATOCRIT 30.5 % (35.4-49); MCH 31.4 pg (25.7-33.7); MCHC 32.8 g/dl (32.0-35.9); MEAN PLT VOLUME 8.1 fl (7.5-11.1); PLATELET COUNT 147 10^3/uL (134-434); RBC 3.18 M/mm3 (4.00-5.60); RDW 15.3 % (11.9-15.9)
[2022-07-15] MEDS: ENOXAPARIN NA (PORCINE) 40 MG/0.4 ML DISP.SYRIN SQ SCH (09:03)
[2022-07-15 09:06] LABS: BLOOD UREA NITROGEN 8.9 mg/dL (7-18)
[2022-07-15] MEDS: VALPROATE SODIUM 250 MG/5 ML UNIT DOSE CUP PO SCH ×2 (09:07→21:45)
[2022-07-15] MEDS: ZINC OXIDE 20% TOPICAL OINTMENT 30 GM TUBE TP SCH ×2 (09:07→21:46)
[2022-07-15] MEDS: MULTIVITAMINS (DAILY MVI) TABLET (FP) PO SCH (09:07)
[2022-07-15 09:09] LABS: CREATININE 0.3 mg/dL (0.55-1.3)
[2022-07-15] MEDS: SODIUM CHLORIDE 1,000 ML IV SCH ×2 (13:13→19:30)
[2022-07-16] MEDS: PIPERACILLIN/TAZOB 3.375 GM 3.375 GM in DEXTROSE 5%-WATER - 50 ML IVPB SCH ×3 (01:24→17:01)
[2022-07-16] MEDS: clonazePAM 0.5 MG TABLET GT SCH ×3 (06:47→21:46)
[2022-07-16] MEDS: LEVOTHYROXINE NA 50 MCG TABLET (FP) GT SCH (06:47)
[2022-07-16] MEDS: SODIUM CHLORIDE 1,000 ML IV SCH (06:52)
[2022-07-16] MEDS: ACETYLCYSTEINE 20% 200MG/ML 4 ML VIAL *FOR ORAL / INH USE ONLY NEB SCH ×4 (08:31→20:05)
[2022-07-16 09:01] LABS: HEMATOCRIT 30.7 % (35.4-49); HEMOGLOBIN 10.2 GM/dL (11.7-16.9); MCH 32.4 pg (25.7-33.7); MCHC 33.3 g/dl (32.0-35.9); MEAN CELL VOLUME 97.1 fl (80-96); MEAN PLT VOLUME 7.8 fl (7.5-11.1); PLATELET COUNT 152 10^3/uL (134-434); RBC 3.17 M/mm3 (4.00-5.60); RDW 15.8 % (11.9-15.9); WHITE BLOOD COUNT 8.1 K/mm3 (4.0-10.0)
[2022-07-16 09:14] LABS: CALCIUM 8.5 mg/dL (8.5-10.1)
[2022-07-16 09:15] LABS: BLOOD UREA NITROGEN 8.5 mg/dL (7-18)
[2022-07-16 09:18] LABS: CREATININE 0.3 mg/dL (0.55-1.3)
[2022-07-16] MEDS: ZINC OXIDE 20% TOPICAL OINTMENT 30 GM TUBE TP SCH ×2 (10:24→21:48)
[2022-07-16] MEDS: MULTIVITAMINS (DAILY MVI) TABLET (FP) PO SCH (10:24)
[2022-07-16] MEDS: VALPROATE SODIUM 250 MG/5 ML UNIT DOSE CUP PO SCH ×2 (10:24→21:46)
[2022-07-16] MEDS: ENOXAPARIN NA (PORCINE) 40 MG/0.4 ML DISP.SYRIN SQ SCH (10:24)
[2022-07-16 23:33] VITALS: RESP 20
[2022-07-17] MEDS: PIPERACILLIN/TAZOB 3.375 GM 3.375 GM in DEXTROSE 5%-WATER - 50 ML IVPB SCH ×2 (02:08→09:48)
[2022-07-17] MEDS: clonazePAM 0.5 MG TABLET GT SCH (05:13)
[2022-07-17] MEDS: SODIUM CHLORIDE 1,000 ML IV SCH (05:13)
[2022-07-17] MEDS: LEVOTHYROXINE NA 50 MCG TABLET (FP) GT SCH (06:00)
[2022-07-17 06:57] VITALS: BP 132/85; PULSE 93; TEMP 97.9
[2022-07-17] MEDS: ZINC OXIDE 20% TOPICAL OINTMENT 30 GM TUBE TP SCH (09:49)
[2022-07-17] MEDS: VALPROATE SODIUM 250 MG/5 ML UNIT DOSE CUP PO SCH (09:49)
[2022-07-17] MEDS: MULTIVITAMINS (DAILY MVI) TABLET (FP) PO SCH (09:50)
== END 2022-07-17 13:48 | disposition home or self-care (01) | DRG 137 ==
LOC: JER 09:57 → JERBED 12:22 → J4S 07-09 14:40
PROVIDERS: ADMIT Internal Medicine; ATTEND Internal Medicine
DX: J69.0 Pneumonitis due to inhalation of food and vomit (principal); J96.21 Acute and chronic respiratory failure with hypoxia; D72.0 Genetic anomalies of leukocytes; E87.1 Hypo-osmolality and hyponatremia; F72 Severe intellectual disabilities; R53.2 Functional quadriplegia; R56.9 Unspecified convulsions; Z93.1 Gastrostomy status; Z93.50 Unspecified cystostomy status; E03.9 Hypothyroidism, unspecified; J98.11 Atelectasis; K21.9 Gastro-esophageal reflux disease without esophagitis; N39.0 Urinary tract infection, site not specified
CPT/HCPCS: 0241U-QW; 36415; 36600; 71045-TC-FY; 80048; 80053; 81003; 82436; 82803; 82962; 83735; 83880; 84133; 84300; 84484; 85025; 85027; 85610; 85730; 87086; 87186; 87899; 93005; 93010; 94640; 99285-25

== ENCOUNTER 2022-08-05 00:37 | Inpatient (IN) | payer OTHER ==
[2022-08-05 02:21] LABS: HEMOGLOBIN 10.1 GM/dL (11.7-16.9); MCH 31.3 pg (25.7-33.7); MCHC 33.5 g/dl (32.0-35.9); MEAN CELL VOLUME 93.3 fl (80-96); MEAN PLT VOLUME 8.7 fl (7.5-11.1); PLATELET COUNT 161 10^3/uL (134-434); RBC 3.21 M/mm3 (4.00-5.60); RDW 15.3 % (11.9-15.9); WHITE BLOOD COUNT 6.5 K/mm3 (4.0-10.0)
[2022-08-05] MEDS ORDERED: SODIUM CHLORIDE 0.9% 500 ML INFUS.BAG IV ONE (02:26)
[2022-08-05 02:27] LABS: VENOUS BASE EXCESS 6.1 mmol/L (-2-2); VENOUS O2 SATURATION 35.1 % (70-80); VENOUS PCO2 63.6 mmHg (38-52); VENOUS PH 7.341 (7.310-7.410)
[2022-08-05 02:29] LABS: INR 1.03 (0.83-1.09); PROTHROMBIN TIME (PATIENT) 11.8 SEC (9.7-13.0)
[2022-08-05 02:31] LABS: ACTIVATED PTT 35.1 SECONDS (25.2-36.5)
[2022-08-05 02:43] LABS: CALCIUM 9.1 mg/dL (8.5-10.1)
[2022-08-05 02:44] LABS: ALBUMIN 1.8 g/dl (3.4-5.0); BLOOD UREA NITROGEN 14.9 mg/dL (7-18)
[2022-08-05 02:47] LABS: CREATININE 0.5 mg/dL (0.55-1.3)
[2022-08-05 02:48] LABS: BILIRUBIN,TOTAL 0.3 mg/dL (0.2-1); TOT PROT 5.9 g/dl (6.4-8.2)
[2022-08-05] MEDS: ALBUTEROL SO4 2.5/IPRATROPIUM 0.5 INH SOL 3 ML VIAL.NEB. NEB SCH ×4 (03:15→04:00)
[2022-08-05 03:22] LABS: LACTIC ACID 2.1 mmol/L (0.4-2.0)
[2022-08-05] MEDS ORDERED: ALBUTEROL SO4 2.5/IPRATROPIUM 0.5 INH SOL 3 ML VIAL.NEB. NEB ONE (03:52)
[2022-08-05] MEDS ORDERED: MUPIROCIN 2% TOPICAL OINTMENT 22 GM TUBE TP PRN (06:06)
[2022-08-05] MEDS ORDERED: ALBUTEROL SO4 0.083% IH SOL 2.5 MG/3 ML VIAL.NEB. NEB PRN (06:06)
[2022-08-05] MEDS ORDERED: diazePAM RECTAL GEL 10 MG KIT (PRE-CALIBRATED) RC PRN (06:06)
[2022-08-05] MEDS ORDERED: LEVOTHYROXINE NA 50 MCG TABLET (FP) GT SCH (07:00)
[2022-08-05] MEDS ORDERED: SODIUM CHLORIDE 1,000 ML IV ONE (07:06)
[2022-08-05 07:21] LABS: ANISOCYTOSIS 0; MACROCYTOSIS 0
[2022-08-05] MEDS ORDERED: LEVOTHYROXINE NA 50 MCG TABLET (FP) ONE (07:29)
[2022-08-05] MEDS ORDERED: ALBUTEROL SO4 2.5/IPRATROPIUM 0.5 INH SOL 3 ML VIAL.NEB. NEB SCH (08:00)
[2022-08-05] MEDS ORDERED: FUROSEMIDE 20 MG TABLET (FP) GT SCH (10:00)
[2022-08-05] MEDS ORDERED: ENOXAPARIN NA (PORCINE) 40 MG/0.4 ML DISP.SYRIN SQ SCH (10:00)
[2022-08-05] MEDS ORDERED: VALPROATE SODIUM 250 MG/5 ML LIQUID BULK BOTTLE PO SCH (10:00)
[2022-08-05] MEDS ORDERED: methylPREDNISolone NA SUCC 40 MG/1 ML VIAL IVPUSH SCH (10:00)
[2022-08-06] MEDS: ALBUTEROL SO4 2.5/IPRATROPIUM 0.5 INH SOL 3 ML VIAL.NEB. NEB PRN ×2 (11:51→20:26)
[2022-08-06] MEDS: GABAPENTIN 250 MG/5 ML ORAL SOLUTION, 470 ML BOTTLE PO SCH (21:11)
[2022-08-06] MEDS: clonazePAM 0.5 MG TABLET GT SCH (21:11)
[2022-08-07 03:45] VITALS: RESP 18
[2022-08-07] MEDS: LEVOTHYROXINE NA 50 MCG TABLET (FP) GT SCH (06:42)
[2022-08-07] MEDS: GABAPENTIN 250 MG/5 ML ORAL SOLUTION, 470 ML BOTTLE PO SCH ×3 (06:42→22:44)
[2022-08-07] MEDS: clonazePAM 0.5 MG TABLET GT SCH ×3 (06:43→22:44)
[2022-08-07] MEDS: ALBUTEROL SO4 2.5/IPRATROPIUM 0.5 INH SOL 3 ML VIAL.NEB. NEB PRN (07:26)
[2022-08-07] MEDS ORDERED: SCOPOLAMINE HYDROBROMIDE 1 PATCH PATCH.TD72 TD PRN (10:05)
[2022-08-08] MEDS: clonazePAM 0.5 MG TABLET GT SCH ×3 (05:46→21:25)
[2022-08-08] MEDS: LEVOTHYROXINE NA 50 MCG TABLET (FP) GT SCH (06:31)
[2022-08-08] MEDS: GABAPENTIN 250 MG/5 ML ORAL SOLUTION, 470 ML BOTTLE PO SCH ×3 (07:39→21:28)
[2022-08-08] MEDS ORDERED: PIPERACILLIN/TAZOB 3.375 GM 3.375 GM in DEXTROSE 5%-WATER - 50 ML IVPB SCH (14:15)
[2022-08-08] MEDS: PIPERACILLIN/TAZOB 3.375 GM 3.375 GM in DEXTROSE 5%-WATER - 50 ML IVPB SCH ×2 (14:53→17:15)
[2022-08-08] MEDS ORDERED: ACETAMINOPHEN 1000 MG/100 ML BAG IVPB PRN (16:28)
[2022-08-08 23:42] VITALS: BMI 34.4
[2022-08-09] MEDS: PIPERACILLIN/TAZOB 3.375 GM 3.375 GM in DEXTROSE 5%-WATER - 50 ML IVPB SCH ×2 (01:31→09:58)
[2022-08-09] MEDS: GABAPENTIN 250 MG/5 ML ORAL SOLUTION, 470 ML BOTTLE PO SCH ×2 (06:12→13:22)
[2022-08-09] MEDS: clonazePAM 0.5 MG TABLET GT SCH ×2 (06:12→13:22)
[2022-08-09] MEDS: LEVOTHYROXINE NA 50 MCG TABLET (FP) GT SCH (06:12)
[2022-08-09 09:44] VITALS: BP 116/66; PULSE 85; TEMP 98.2
== END 2022-08-09 14:15 | disposition hospice, inpatient (51) | DRG 137 ==
LOC: JER 00:37 → JERBED 03:34 → J6S 20:55 → J5S 08-07 12:29
PROVIDERS: ADMIT Internal Medicine; ATTEND Internal Medicine
DX: J69.0 Pneumonitis due to inhalation of food and vomit (principal); J96.01 Acute respiratory failure with hypoxia; D72.0 Genetic anomalies of leukocytes; E87.1 Hypo-osmolality and hyponatremia; J90 Pleural effusion, not elsewhere classified; Z93.1 Gastrostomy status; F72 Severe intellectual disabilities; E03.9 Hypothyroidism, unspecified; G80.8 Other cerebral palsy; G80.9 Cerebral palsy, unspecified; K21.9 Gastro-esophageal reflux disease without esophagitis
CPT/HCPCS: 36415; 71045-TC-FY; 80053; 82553; 82803; 83605; 85025; 85610; 85730; 86850; 86900; 86901; 87040; 93005; 93010; 94640; 99285-25; C9803-CS; U0003; U0005